=== PATIENT | female | born 1965 | race Caucasian/White ===

== ENCOUNTER 2018-02-07 19:57 | Emergency (ER) | payer OTHER ==
[2018-02-07] MEDS ORDERED: BABY ASPIRIN 81 MG CHEW PO ONE (20:21)
--- NOTE | 2018-02-07 20:27 | ERPHSYRPT ---
- History of Present Illness Time Seen by Provider: 02/07/18 20:21 Historian: patient Exam Limitations: no limitations Physician History: This is a 52-year-old white female with history of diabetes asthma bronchitis GERD hyperlipidemia Patient arrives with complaint of pain like someone is sitting on her chest substernal area radiating to her back associated with shortness of breath symptoms for one hour. Patient has no nausea she is not vomiting, patient was admitted to [facility] the weekend before last secondary to chest pain and ruled out. Patient saw her family doctor today. Past medical history includes diabetes, asthma, bronchitis, GERD, cataracts, hyperlipidemia, arthritis, anxiety, depression, leaky heart valve Past surgical history includes cholecystectomy, tubal ligation, cardiac catheter several years ago go which was normal, rotator cuff surgery ppatient took one baby aspirin this morning Timing/Duration: today (one hour ago) Activities at Onset: none Quality: pressure Chest Pain Radiation: back Severity of Pain-Max: moderate Severity of Pain-Current: mild Modifying Factors: Improves With: nothing Associated Symptoms: shortness of breath, hurts to breathe, No nausea, No vomiting, No palpitations, No heartburn, No abdominal pain, No cough, No diaphoresis, No chills, No fever, No fatigue, No weakness, No swelling/lump in chest, No syncope, No rash, No headache, No dizziness, No edema, No back pain Prior Chest Pain/Cardiac Workup: cardiac cath (cardiac catheter several years ago), recently seen/treated (in [facility] 2 weeks ago for same) Nitro Today/Relief: no nitro taken today Aspirin Treatment Today: 81 mg x 1 (81 mg at home this morning), 81 mg x 3 (243 mg in the emergency room now) Allergies/Adverse Reactions: morphine Allergy (Verified 02/07/18 22:55) levofloxacin [From Levaquin] Adverse Reaction (Intermediate, Verified 02/07/18 22:55) PT STATES ONE TIME SHE HAD THIS MEDICINE AND HER VEINS ALL TURNED BRIGHT RED Hx Tetanus, Diphtheria Vaccination/Date Given: Yes Hx Influenza Vaccination/Date Given: Yes Hx Pneumococcal Vaccination/Date Given: No - Review of Systems Constitutional: No Fever, No Chills Eyes: No Symptoms Ears, Nose, & Throat: No Symptoms Respiratory: Dyspnea, No Cough Cardiac: Chest Pain, No Edema, No Palpitations, No Syncope, No Orthopnea, No PND Abdominal/Gastrointestinal: No Abdominal Pain, No Nausea, No Vomiting, No Diarrhea Genitourinary Symptoms: No Dysuria Musculoskeletal: No Back Pain, No Neck Pain Skin: No Rash Neurological: No Dizziness, No Focal Weakness, No Sensory Changes Psychological: No Symptoms Endocrine: No Symptoms All Other Systems: Reviewed and Negative - Past Medical History Pertinent Past Medical History: Yes Neurological History: Seizures ENT History: Cataracts Cardiac History: High Cholesterol, Other Respiratory History: Asthma, Bronchitis Endocrine Medical History: Other Musculoskeletal History: Arthritis, Osteoarthritis GI Medical History: GERD History: No Pertinent History Psycho-Social History: Anxiety, Depression Female Reproductive Disorders: No Pertinent History Other Medical History: OA IN LEFT FOOT, RIGHT HAND, NECK;. LEAKING HEART VALVE - Past Surgical History Past Surgical History: Yes Neuro Surgical History: No Pertinent History Cardiac: No Pertinent History Respiratory: No Pertinent History Gastrointestinal: Cholecystectomy Genitourinary: No Pertinent History Musculoskeletal: No Pertinent History, Orthopedic Surgery Female Surgical History: Tubal Ligation Other Surgical History: HEART CATH, rotator cuff in oct 2015 - Social History Smoking Status: Former smoker How long have you smoked: 6 YEARS Exposure to second hand smoke: Yes Alcohol Use: None Drug Use: none Patient Lives Alone: No Significant Family History: no pertinent family hx - Nursing Vital Signs Nursing Vital Signs: Initial Vital Signs Temperature 98.2 F 02/07/18 20:14 Pulse Rate 87 02/07/18 20:14 Respiratory Rate 18 02/07/18 20:14 Blood Pressure 169/105 02/07/18 20:14 O2 Sat by Pulse Oximetry 99 02/07/18 20:14 Pain Scale Pain Intensity 5 - Physical Exam General Appearance: no apparent distress, alert Eye Exam: PERRL/EOMI, eyes nml inspection Ears, Nose, Throat Exam: normal ENT inspection, moist mucous membranes Neck Exam: normal inspection, non-tender, supple, full range of motion Respiratory Exam: normal breath sounds, lungs clear, No respiratory distress Cardiovascular Exam: regular rate/rhythm, normal heart sounds Gastrointestinal/Abdomen Exam: soft, No tenderness, No mass Back Exam: normal inspection, No CVA tenderness, No vertebral tenderness Extremity Exam: normal inspection, normal range of motion Neurologic Exam: alert, oriented x 3, cooperative, maintenance foreman II-XII nml as tested, normal mood/affect, sensation nml, No motor deficits Skin Exam: normal color, warm, dry SpO2 Interpretation: normal (98%) - Course Nursing assessment & vital signs reviewed: Yes EKG Interpreted by Me: RATE (83 bpm), Sinus Rhythm, NORMAL AXIS (EKG: Normal sinus rhythm, 83 beats for minute, normal axis, no acute ST or T wave changes, normal EKG.) - Radiology Exams Chest X-ray Interpretation: Interpreted by me, Other (no acute disease process noted) Ordered Tests: Active Orders 24 hr Category Date Time Status Mannequin Molder STAT Care 02/07/18 20:21 Active EKG-ER Only STAT Care 02/07/18 20:21 Active IV Insertion STAT Care 02/07/18 20:21 Active CHEST 1 VIEW (PORTABLE) Stat Exams 02/07/18 20:21 Taken AMYLASE Stat Lab 02/07/18 20:30 Completed CBC W DIFF Stat Lab 02/07/18 20:30 Completed CMP Stat Lab 02/07/18 20:30 Completed D-DIMER QUANTITATION Stat Lab 02/07/18 20:30 Completed LIPASE Stat Lab 02/07/18 20:30 Completed Manual Differential NC Stat Lab 02/07/18 20:30 Completed TROPONIN Q3H Lab 02/07/18 20:30 Completed TROPONIN Q3H Lab 02/07/18 23:30 Completed TROPONIN Q3H Lab 02/08/18 02:30 Ordered TROPONIN Q3H Lab 02/08/18 05:30 Ordered TROPONIN Q3H Lab 02/08/18 08:30 Ordered Medication Summary Generic Name Dose Route Start Last Admin Trade Name Freq PRN Reason Stop Dose Admin Sodium Chloride 1,000 mls @ 100 mls/hr 02/07/18 20:30 02/07/18 21:06 Sodium Chloride 0.9% 1000 Ml IV 03/09/18 20:29 100 mls/hr .Q10H ARSH Administration Discontinued Medications Generic Name Dose Route Start Last Admin Trade Name Freq PRN Reason Stop Dose Admin Hydrocodone Bitart/Acetaminophen 1 tab 02/07/18 21:26 02/07/18 21:33 Lachine 5/325 Mg PO 02/07/18 21:27 1 tab STAT ONE Administration Hydrocodone Bitart/Acetaminophen Confirm 02/07/18 21:29 Lachine 5/325 Mg Administered 02/07/18 21:30 Dose 1 tab .ROUTE .STK-MED ONE Aspirin 243 mg 02/07/18 20:21 02/07/18 21:03 Baby Aspirin 81 Mg Chew PO 02/07/18 20:22 243 mg STAT ONE Administration Lab/Rad Data: Laboratory Result Diagrams 02/07/18 20:30 02/07/18 20:30 Laboratory Results 02/07/18 02/07/18 02/07/18 Range/Units 23:30 20:30 20:30 WBC (4.0-10.5) K/mm3 RBC (4.1-5.4) M/mm3 Hgb (12.0-16.0) gm/dl Hct (35-47) % MCV (78-100) fl MCH (26-32) pg MCHC (32-36) g/dl RDW (11.5-14.0) % Plt Count (150-450) K/mm3 MPV (6-9.5) fl Segmented Neutrophils (36.0-66.0) % Lymphocytes (Manual) (24-44) % Monocytes (Manual) (0.0-12.0) % Eosinophils (Manual) (0.00-3.0) % Basophils (Manual) (0.0-1.0) % Differential Comment Atypical Lymphocytes % Platelet Estimate (NORMAL) Anisocytosis D-Dimer (215-500) ng/mL Sodium (137-145) mmol/L Potassium (3.5-5.1) mmol/L Chloride (98-107) mmol/L Carbon Dioxide (22-30) mmol/L Anion Gap (5-15) MEQ/L BUN (7-17) mg/dL Creatinine (0.52-1.04) mg/dL Estimated GFR ML/MIN Glucose (74-106) mg/dL Calcium (8.4-10.2) mg/dL Total Bilirubin (0.2-1.3) mg/dL AST (14-36) U/L ALT (0-35) U/L Alkaline Phosphatase (38-126) U/L Troponin I < 0.012 < 0.012 (0.000-0.034) ng/mL Serum Total Protein (6.3-8.2) g/dL Albumin (3.5-5.0) g/dL Amylase 57 (30-110) U/L Lipase 79 (23-300) U/L 02/07/18 02/07/18 02/07/18 Range/Units 20:30 20:30 20:30 WBC 8.3 (4.0-10.5) K/mm3 RBC 4.03 L (4.1-5.4) M/mm3 Hgb 12.4 (12.0-16.0) gm/dl Hct 37.1 (35-47) % MCV 92.1 (78-100) fl MCH 30.7 (26-32) pg MCHC 33.4 (32-36) g/dl RDW 12.4 (11.5-14.0) % Plt Count 245 (150-450) K/mm3 MPV 11.8 H (6-9.5) fl Segmented Neutrophils 57 (36.0-66.0) % Lymphocytes (Manual) 28 (24-44) % Monocytes (Manual) 5 (0.0-12.0) % Eosinophils (Manual) 4 H (0.00-3.0) % Basophils (Manual) 2 H (0.0-1.0) % Differential Comment ABNORMAL Atypical Lymphocytes 4 % Platelet Estimate NORMAL (NORMAL) Anisocytosis 1+ D-Dimer 494.54 (215-500) ng/mL Sodium 141 (137-145) mmol/L Potassium 4.1 (3.5-5.1) mmol/L Chloride 104 (98-107) mmol/L Carbon Dioxide 27 (22-30) mmol/L Anion Gap 14.4 (5-15) MEQ/L BUN 8 (7-17) mg/dL Creatinine 0.78 (0.52-1.04) mg/dL Estimated GFR > 60 ML/MIN Glucose 116 H (74-106) mg/dL Calcium 9.4 (8.4-10.2) mg/dL Total Bilirubin 0.30 (0.2-1.3) mg/dL AST 21 (14-36) U/L ALT 16 (0-35) U/L Alkaline Phosphatase 84 (38-126) U/L Troponin I (0.000-0.034) ng/mL Serum Total Protein 7.3 (6.3-8.2) g/dL Albumin 4.1 (3.5-5.0) g/dL Amylase (30-110) U/L Lipase (23-300) U/L - Progress Progress: improved Air Movement: fair Progress Note: 02/07/18 21:27 Patient's EKG chest x-ray labs including troponin and d-dimer are all normal patient states she still has some chest pain will give her Lachine 5/325. Patient had recently been ruled out at [facility]. Will get a second troponin 3 hours after last draw. 02/08/18 00:27 Patient pain-free feeling better troponin within normal limits second time. Will discharge - Departure Time of Disposition: 00:29 Departure Disposition: Home Clinical Impression: Non-cardiac chest pain Condition: Fair Critical Care Time: No Referrals: LORIN WAN [Primary Care Provider] - Additional Instructions: Return home, rest. Follow-up with your family doctor or your broom maker. Return for acute distress or for severe symptoms. take the Lachine given to you raynedm to go home 1 every 4-6 hours as needed for pain.
[2018-02-07] MEDS ORDERED: Sodium Chloride 0.9% 1000 ML 1,000 ML IV SCH (20:30)
[2018-02-07 20:36] LABS: Granulocyte Absolute (ANC) 4.66 (1.4-6.9); Hematocrit 37.1 % (35-47); Hemoglobin 12.4 gm/dl (12.0-16.0); Mean Cell Volume 92.1 fl (78-100); Mean Corpuscular Hgb Concent. 33.4 g/dl (32-36); Mean Platelet Volume 11.8 fl (6-9.5); Platelet Count 245 K/mm3 (150-450); Red Blood Count 4.03 M/mm3 (4.1-5.4); Red Cell Distribution Width 12.4 % (11.5-14.0); White Blood Count 8.3 K/mm3 (4.0-10.5)
[2018-02-07 21:01] LABS: Mean Corpuscular Hemoglobin 30.7 pg (26-32)
[2018-02-07] MEDS ORDERED: Sodium Chloride 0.9% 1000 ML 1,000 ML ONE (21:04)
[2018-02-07 21:07] LABS: ALBUMIN 4.1 g/dL (3.5-5.0); ALKALINE PHOSPHATASE 84 U/L (38-126); AMYLASE 57 U/L (30-110); ANION GAP 14.4 MEQ/L (5-15); BLOOD UREA NITROGEN 8 mg/dL (7-17); CHLORIDE 104 mmol/L (98-107); Calcium 9.4 mg/dL (8.4-10.2); Carbon Dioxide 27 mmol/L (22-30); Creatinine 1 0.78 mg/dL (0.52-1.04); Glucose 116 mg/dL (74-106); LIPASE 79 U/L (23-300); Potassium 4.1 mmol/L (3.5-5.1); SGOT/AST 21 U/L (14-36); SGPT/ALT 16 U/L (0-35); SODIUM 141 mmol/L (137-145); Total Protein 7.3 g/dL (6.3-8.2)
[2018-02-07] MEDS ORDERED: NORCO 5/325 MG PO ONE (21:26)
[2018-02-07] MEDS ORDERED: NORCO 5/325 MG ONE (21:29)
[2018-02-07 22:08] LABS: Total Cells Counted 100
[2018-02-07 22:09] LABS: ANISOCYTOSIS 1+; ATYPICAL LYMPHS 4 %; Basophil 2 % (0.0-1.0); Eosinophil 4 % (0.00-3.0); Lymphocytes 28 % (24-44); Monocyte 5 % (0.0-12.0); Neutrophils 57 % (36.0-66.0); Platelet Estimate NORMAL (NORMAL)
[2018-02-08 00:19] VITALS: BP 137/72; PULSE 84; O2SAT 98
[2018-02-08] MEDS ORDERED: NORCO 5/325 MG PO ONE (00:29)
[2018-02-08] MEDS ORDERED: NORCO 5/325 MG ONE (00:32)
[2018-02-08] MEDS ORDERED: BABY ASPIRIN 81 MG CHEW ONE (02:03)
--- NOTE | 2018-02-08 09:05 | XRAY ---
Indication: Chest pain. Comparison: November 02, 2017. Portable chest again demonstrates normal heart and lungs with mild multilevel spinal degenerative changes. No new/acute findings.
== END 2018-02-08 00:46 | disposition home or self-care (01) ==
LOC: ED 19:57
DX: R07.89 Other chest pain (principal)
CPT/HCPCS: 36000; 36415; 71045; 80053; 82150; 83690; 84443; 84484; 85025; 85379; 93005; 93041; 96360; 99284; 99285; A9270-GY

== ENCOUNTER 2018-02-13 07:09 | Emergency (ER) | payer OTHER ==
[2018-02-13] MEDS ORDERED: Zofran 4 MG/2 ML VIAL IV ONE (07:33)
[2018-02-13] MEDS ORDERED: TORAdol 30 mg Injection IV ONE (07:34)
[2018-02-13] MEDS ORDERED: TORAdol 30 mg Injection ONE (07:39)
[2018-02-13] MEDS ORDERED: Zofran 4 MG/2 ML VIAL ONE (07:39)
--- NOTE | 2018-02-13 07:47 | ERPHSYRPT ---
- History of Present Illness Time Seen by Provider: 02/13/18 07:28 Historian: patient Exam Limitations: no limitations Physician History: 52 y/o female returns to the ER with complaints of intermittent chest pain, shortness of breath and dizziness since early January after returning from a trip from [place]. Pt describes the pain as someone sitting on her chest, intermittent, 8/10 and not relieved by norco. Pt also admits to leg swelling. Pt was seen in the ER twice over the last couple of weeks, once at [facility] and the other time 5 days ago at [place]. Pt had multiple EKGs and troponins that were negative. Pt states that she had a similar episode of chest pain and shortness of breath 4 years ago and was told she had a leaky valve. Timing/Duration: week(s) Activities at Onset: activity Quality: pressure Location: substernal Chest Pain Radiation: no radiation Severity of Pain-Max: severe Severity of Pain-Current: severe Modifying Factors: Improves With: nothing Associated Symptoms: nausea, vomiting, shortness of breath Prior Chest Pain/Cardiac Workup: cardiac cath, echocardiography Nitro Today/Relief: no nitro taken today Aspirin Treatment Today: unknown Allergies/Adverse Reactions: morphine Allergy (Verified 02/13/18 07:47) levofloxacin [From Levaquin] Adverse Reaction (Intermediate, Verified 02/13/18 07:47) PT STATES ONE TIME SHE HAD THIS MEDICINE AND HER VEINS ALL TURNED BRIGHT RED Hx Tetanus, Diphtheria Vaccination/Date Given: Yes Hx Influenza Vaccination/Date Given: Yes Hx Pneumococcal Vaccination/Date Given: No - Review of Systems Constitutional: No Fever, No Chills Eyes: No Symptoms Ears, Nose, & Throat: No Symptoms Respiratory: Dyspnea, Dyspnea on Exertion (JULIEN), No Cough Cardiac: Chest Pain, Edema, No Syncope Abdominal/Gastrointestinal: Nausea, Vomiting, No Abdominal Pain, No Diarrhea Genitourinary Symptoms: No Dysuria Musculoskeletal: No Back Pain, No Neck Pain Skin: No Rash Neurological: No Dizziness, No Focal Weakness, No Sensory Changes Psychological: No Symptoms Endocrine: No Symptoms All Other Systems: Reviewed and Negative - Past Medical History Pertinent Past Medical History: Yes Neurological History: Seizures ENT History: Cataracts Cardiac History: High Cholesterol, Other Respiratory History: Asthma, Bronchitis Endocrine Medical History: Other Musculoskeletal History: Arthritis, Osteoarthritis GI Medical History: GERD History: No Pertinent History Psycho-Social History: Anxiety, Depression Female Reproductive Disorders: No Pertinent History Other Medical History: OA IN LEFT FOOT, RIGHT HAND, NECK;. LEAKING HEART VALVE - Past Surgical History Past Surgical History: Yes Neuro Surgical History: No Pertinent History Cardiac: No Pertinent History Respiratory: No Pertinent History Gastrointestinal: Cholecystectomy Genitourinary: No Pertinent History Musculoskeletal: No Pertinent History, Orthopedic Surgery Female Surgical History: Tubal Ligation Other Surgical History: HEART CATH, rotator cuff in oct 2015 - Social History Smoking Status: Former smoker How long have you smoked: 6 YEARS Exposure to second hand smoke: Yes Alcohol Use: None Drug Use: none Patient Lives Alone: No Significant Family History: no pertinent family hx - Nursing Vital Signs Nursing Vital Signs: Initial Vital Signs Temperature 97.7 F 02/13/18 07:12 Pulse Rate 82 02/13/18 07:12 Respiratory Rate 20 02/13/18 07:12 Blood Pressure 119/93 02/13/18 07:12 O2 Sat by Pulse Oximetry 99 02/13/18 07:12 Pain Scale Pain Intensity 5 - Physical Exam General Appearance: no apparent distress, alert Eye Exam: PERRL/EOMI, eyes nml inspection Ears, Nose, Throat Exam: normal ENT inspection, moist mucous membranes Neck Exam: normal inspection, non-tender, supple, full range of motion Respiratory Exam: normal breath sounds, chest tenderness, lungs clear, No respiratory distress Cardiovascular Exam: regular rate/rhythm, normal heart sounds, normal peripheral pulses Gastrointestinal/Abdomen Exam: soft, normal bowel sounds, No tenderness, No mass Back Exam: normal inspection, No CVA tenderness, No vertebral tenderness Extremity Exam: normal inspection, normal range of motion Neurologic Exam: alert, oriented x 3, cooperative, normal mood/affect, sensation nml, No motor deficits Skin Exam: normal color, warm, dry - Course Nursing assessment & vital signs reviewed: Yes EKG Interpreted by Me: RATE, NORMAL AXIS, NORMAL INTERVALS, NORMAL QRS, NORMAL ST-T Ordered Tests: Active Orders 24 hr Category Date Time Status IV Insertion STAT Care 02/13/18 07:32 Active CHEST WITH CONTRAST [CT] Stat Exams 02/13/18 07:32 Completed CBC W DIFF Stat Lab 02/13/18 07:35 Completed CK-Creatinine Phosphokinase Stat Lab 02/13/18 07:35 Completed CMP Stat Lab 02/13/18 07:35 Completed NT PRO BNP Stat Lab 02/13/18 07:35 Completed PROTIME WITH INR Stat Lab 02/13/18 07:35 Completed PTT Stat Lab 02/13/18 07:35 Completed TROPONIN Q3H Lab 02/13/18 07:35 Completed TROPONIN Q3H Lab 02/13/18 10:45 Ordered TROPONIN Q3H Lab 02/13/18 13:45 Ordered TROPONIN Q3H Lab 02/13/18 16:45 Ordered TROPONIN Q3H Lab 02/13/18 19:45 Ordered Medication Summary Discontinued Medications Generic Name Dose Route Start Last Admin Trade Name Curry PRN Reason Stop Dose Admin Ketorolac Tromethamine 30 mg 02/13/18 07:34 02/13/18 07:43 Toradol 30 Mg Injection IV 02/13/18 07:35 30 mg STAT ONE Administration Ketorolac Tromethamine Confirm 02/13/18 07:39 Toradol 30 Mg Injection Administered 02/13/18 07:40 Dose 30 mg .ROUTE .STK-MED ONE Ondansetron HCl 4 mg 02/13/18 07:33 02/13/18 07:43 Zofran 4 Mg/2 Ml Vial IV 02/13/18 07:34 4 mg STAT ONE Administration Ondansetron HCl Confirm 02/13/18 07:39 Zofran 4 Mg/2 Ml Vial Administered 02/13/18 07:40 Dose 4 mg .ROUTE .STK-MED ONE Lab/Rad Data: Laboratory Result Diagrams 02/13/18 07:35 02/13/18 07:35 Laboratory Results 02/13/18 02/13/18 02/13/18 Range/Units 07:35 07:35 07:35 WBC (4.0-10.5) K/mm3 RBC (4.1-5.4) M/mm3 Hgb (12.0-16.0) gm/dl Hct (35-47) % MCV (78-100) fl MCH (26-32) pg MCHC (32-36) g/dl RDW (11.5-14.0) % Plt Count (150-450) K/mm3 MPV (6-9.5) fl Gran % (36.0-66.0) % Eos # (Auto) (0-0.5) Absolute Lymphs (auto) (1.0-4.6) Absolute Monos (auto) (0.0-1.3) Lymphocytes % (24.0-44.0) % Monocytes % (0.0-12.0) % Eosinophils % (0.00-5.0) % Basophils % (0.0-0.4) % Absolute Granulocytes (1.4-6.9) Basophils # (0-0.4) PT 10.6 (9.95-12.35) SECONDS INR 0.95 (0.8-3.0) APTT 27.7 (25.3-37.0) SECONDS Sodium 139 (137-145) mmol/L Potassium 4.2 (3.5-5.1) mmol/L Chloride 104 (98-107) mmol/L Carbon Dioxide 25 (22-30) mmol/L Anion Gap 14.9 (5-15) MEQ/L BUN 10 (7-17) mg/dL Creatinine 0.75 (0.52-1.04) mg/dL Estimated GFR > 60 ML/MIN Glucose 109 H (74-106) mg/dL Calcium 9.5 (8.4-10.2) mg/dL Total Bilirubin 0.50 (0.2-1.3) mg/dL AST 17 (14-36) U/L ALT 13 (0-35) U/L Alkaline Phosphatase 91 (38-126) U/L Creatine Kinase 52 (30-135) U/L Troponin I < 0.012 (0.000-0.034) ng/mL NT-Pro-B Natriuret Pep 54.6 (0-900) pg/mL Serum Total Protein 7.7 (6.3-8.2) g/dL Albumin 4.4 (3.5-5.0) g/dL 02/13/18 Range/Units 07:35 WBC 6.9 (4.0-10.5) K/mm3 RBC 4.16 (4.1-5.4) M/mm3 Hgb 12.5 (12.0-16.0) gm/dl Hct 38.4 (35-47) % MCV 92.3 (78-100) fl MCH 30.0 (26-32) pg MCHC 32.6 (32-36) g/dl RDW 12.5 (11.5-14.0) % Plt Count 232 (150-450) K/mm3 MPV 11.2 H (6-9.5) fl Gran % 54.2 (36.0-66.0) % Eos # (Auto) 0.43 (0-0.5) Absolute Lymphs (auto) 2.11 (1.0-4.6) Absolute Monos (auto) 0.58 (0.0-1.3) Lymphocytes % 30.6 (24.0-44.0) % Monocytes % 8.4 (0.0-12.0) % Eosinophils % 6.2 H (0.00-5.0) % Basophils % 0.6 (0.0-0.4) % Absolute Granulocytes 3.73 (1.4-6.9) Basophils # 0.04 (0-0.4) PT (9.95-12.35) SECONDS INR (0.8-3.0) APTT (25.3-37.0) SECONDS Sodium (137-145) mmol/L Potassium (3.5-5.1) mmol/L Chloride (98-107) mmol/L Carbon Dioxide (22-30) mmol/L Anion Gap (5-15) MEQ/L BUN (7-17) mg/dL Creatinine (0.52-1.04) mg/dL Estimated GFR ML/MIN Glucose (74-106) mg/dL Calcium (8.4-10.2) mg/dL Total Bilirubin (0.2-1.3) mg/dL AST (14-36) U/L ALT (0-35) U/L Alkaline Phosphatase (38-126) U/L Creatine Kinase (30-135) U/L Troponin I (0.000-0.034) ng/mL NT-Pro-B Natriuret Pep (0-900) pg/mL Serum Total Protein (6.3-8.2) g/dL Albumin (3.5-5.0) g/dL - Progress Progress: improved Progress Note: 02/13/18 09:28 Pt feels better after receiving toradol 30mg IV X 1 dose. The CTA chest is within normal limits. The rest of the cardiac workup is within normal limits. The patient has an appointment with Dr Ramsey this week for evaluation of her leaky valve. - Departure Time of Disposition: 09:29 Departure Disposition: Home Clinical Impression: Costochondritis Condition: Stable Critical Care Time: No Referrals: LORIN WAN [Primary Care Provider] - LIZ RAMSEY [ACTIVE STAFF] - Instructions: Chest Pain (DC), Costochondritis (DC) Additional Instructions: Follow up with Dr Ramsey this week. Return to the ER if you should have severe chest pain, shortness of breath, dizziness or palpitations. Prescriptions: Ketorolac Tromethamine [Toradol] 10 mg PO QID PRN #20 tablet PRN Reason: Pain
[2018-02-13 07:50] LABS: BASOPHIL % 0.6 % (0.0-0.4); Basophil (Absolute #) 0.04 (0-0.4); Eosinophil % 6.2 % (0.00-5.0); Eosinophil (Absolute #) 0.43 (0-0.5); Granulocyte Absolute (ANC) 3.73 (1.4-6.9); Granulocytes % 54.2 % (36.0-66.0); Hematocrit 38.4 % (35-47); Hemoglobin 12.5 gm/dl (12.0-16.0); Lymphocyte (Absolute #) 2.11 (1.0-4.6); Lymphocytes % 30.6 % (24.0-44.0); Mean Cell Volume 92.3 fl (78-100); Mean Corpuscular Hgb Concent. 32.6 g/dl (32-36); Mean Platelet Volume 11.2 fl (6-9.5); Monocyte (Absolute #) 0.58 (0.0-1.3); Monocytes % 8.4 % (0.0-12.0); Platelet Count 232 K/mm3 (150-450); Red Blood Count 4.16 M/mm3 (4.1-5.4); Red Cell Distribution Width 12.5 % (11.5-14.0); White Blood Count 6.9 K/mm3 (4.0-10.5)
[2018-02-13 08:02] LABS: INR 0.95 (0.8-3.0)
[2018-02-13 08:04] LABS: PTT 27.7 SECONDS (25.3-37.0)
[2018-02-13 08:07] LABS: ALBUMIN 4.4 g/dL (3.5-5.0); ALKALINE PHOSPHATASE 91 U/L (38-126); ANION GAP 14.9 MEQ/L (5-15); BLOOD UREA NITROGEN 10 mg/dL (7-17); CHLORIDE 104 mmol/L (98-107); CK-Creatinine Phosphokinase 52 U/L (30-135); Calcium 9.5 mg/dL (8.4-10.2); Carbon Dioxide 25 mmol/L (22-30); Creatinine 1 0.75 mg/dL (0.52-1.04); Glucose 109 mg/dL (74-106); Potassium 4.2 mmol/L (3.5-5.1); SGOT/AST 17 U/L (14-36); SGPT/ALT 13 U/L (0-35); SODIUM 139 mmol/L (137-145); Total Protein 7.7 g/dL (6.3-8.2)
[2018-02-13 08:16] LABS: NT PRO BNP 54.6 pg/mL (0-900)
--- NOTE | 2018-02-13 08:44 | XRAY ---
Indication: Chest pain and short of breath for a few weeks. Multiple contiguous axial images obtained through the chest using 80 cc Isovue 370 contrast and PE protocol. Comparison: None There is good opacification of the pulmonary arteries to include the lobar and segmental branches. No filling defect or pulmonary embolus. Heart is not enlarged. Aorta is normal in course and caliber. No pathologic mediastinal/hilar lymphadenopathy. Small hiatal hernia. Lungs are inflated with minimal bilateral dependent atelectasis. No suspicious pulmonary mass, infiltrate, or effusion. Bony thorax intact with mild degenerative changes throughout the spine. Limited upper abdomen demonstrates fatty liver, cholecystectomy clips, and scattered colonic fecal debris. Impression: 1. Negative pulmonary embolus. No acute cardiopulmonary abnormalities. 2. Incidental fatty liver. CT DI 23.59
[2018-02-13 10:35] VITALS: BP 118/79; PULSE 81; O2SAT 98
== END 2018-02-13 10:25 | disposition home or self-care (01) ==
LOC: ED 07:09
DX: M94.0 Chondrocostal junction syndrome [Tietze] (principal); R07.9 Chest pain, unspecified; R06.02 Shortness of breath; R42 Dizziness and giddiness; R11.2 Nausea with vomiting, unspecified
CPT/HCPCS: 36000; 36415; 71260; 80053; 82550; 83880; 84484; 85025; 85610; 85730; 96374; 96375; 99284; J1885; J2405

== ENCOUNTER 2018-02-21 23:10 | Inpatient (IN) | payer OTHER ==
[2018-02-21] MEDS ORDERED: Nitrostat 0.4 MG (ED) SL ONE ×2 (23:31→23:42)
[2018-02-21] MEDS ORDERED: BABY ASPIRIN 81 MG CHEW PO ONE (23:31)
[2018-02-21] MEDS ORDERED: BABY ASPIRIN 81 MG CHEW ONE (23:42)
[2018-02-21 23:44] LABS: BASOPHIL % 0.5 % (0.0-0.4); Basophil (Absolute #) 0.04 (0-0.4); Eosinophil % 8.4 % (0.00-5.0); Eosinophil (Absolute #) 0.67 (0-0.5); Granulocyte Absolute (ANC) 3.29 (1.4-6.9); Granulocytes % 41.3 % (36.0-66.0); Hematocrit 35.5 % (35-47); Hemoglobin 11.6 gm/dl (12.0-16.0); Lymphocyte (Absolute #) 3.14 (1.0-4.6); Lymphocytes % 39.4 % (24.0-44.0); Mean Cell Volume 92.4 fl (78-100); Mean Corpuscular Hemoglobin 30.2 pg (26-32); Mean Corpuscular Hgb Concent. 32.7 g/dl (32-36); Mean Platelet Volume 11.4 fl (6-9.5); Monocyte (Absolute #) 0.83 (0.0-1.3); Monocytes % 10.4 % (0.0-12.0); Platelet Count 280 K/mm3 (150-450); Red Blood Count 3.84 M/mm3 (4.1-5.4); Red Cell Distribution Width 12.2 % (11.5-14.0)
[2018-02-21] MEDS ORDERED: Sodium Chloride 0.9% 1000 ML 1,000 ML IV SCH (23:45)
--- NOTE | 2018-02-21 23:50 | ERPHSYRPT ---
- History of Present Illness Time Seen by Provider: 02/21/18 23:39 Historian: patient Exam Limitations: clinical condition Patient Subjective Stated Complaint: cp/sob since 1900 today/ vomited prior to arrival. increased pain with deep breathing into back. Triage Nursing Assessment: alert and oriented.. c/o CP going into back with deep breathing, has productive cough which is not unusual due to COPD. 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 lungs clear. noted leg swelling/ Physician History: PATIENT WITH A HISTORY OF COPD, HYPERTENSION COMPLAINS OF SUBSTERNAL CHEST PRESSURE INTERMITTENT X 3 WEEKS, EVALUATED AT [facility] 3 WEEKS AGO, [facility] 02/13/2018, COMPLAINS OF SUBSTERNAL CHEST PRESSURE SINCE 7PM TONIGHT PAIN SCALE 8/10, PAIN RADIATES TO BACK ASSOCIATED WITH DYSPNEA. DENIES COUGH, DIAPHORESIS OR PALPITATIONS Timing/Duration: today Activities at Onset: none Location: substernal Chest Pain Radiation: back Severity of Pain-Max: severe Severity of Pain-Current: severe Modifying Factors: Improves With: breathing Associated Symptoms: hurts to breathe Prior Chest Pain/Cardiac Workup: stress test Nitro Today/Relief: no nitro taken today Aspirin Treatment Today: 81 mg x 1 Allergies/Adverse Reactions: morphine Allergy (Verified 02/13/18 07:47) levofloxacin [From Levaquin] Adverse Reaction (Intermediate, Verified 02/13/18 07:47) PT STATES ONE TIME SHE HAD THIS MEDICINE AND HER VEINS ALL TURNED BRIGHT RED Home Medications: Albuterol Sulfate [Ventolin Hfa] 8 gm IH Q6-8HPRN PRN 02/21/18 [History] Aripiprazole [Abilify] 5 mg PO DAILY 02/21/18 [History] Fluticasone/Salmeterol [Advair 100-50 Diskus] 1 each IH DAILY 02/21/18 [History] Meclizine HCl 25 mg [Antivert 25 mg] 25 mg PO DAILY 02/21/18 [History] Prazosin HCl [Minipress] 1 mg PO DAILY 02/21/18 [History] Ranitidine HCl [Zantac] 150 mg PO DAILY 02/21/18 [History] Ropinirole HCl [Requip] 1 mg PO DAILY 02/21/18 [History] Simvastatin [Zocor] 5 mg PO DAILY 02/21/18 [History] Hx Tetanus, Diphtheria Vaccination/Date Given: Yes Hx Influenza Vaccination/Date Given: Yes Hx Pneumococcal Vaccination/Date Given: No - Review of Systems Constitutional: No Symptoms, No Fever, No Chills Eyes: No Symptoms Ears, Nose, & Throat: No Symptoms Respiratory: Dyspnea, No Cough Cardiac: Chest Pain, No Edema, No Syncope Abdominal/Gastrointestinal: No Symptoms, No Abdominal Pain, No Nausea, No Vomiting, No Diarrhea Genitourinary Symptoms: No Symptoms, No Dysuria Musculoskeletal: No Symptoms, No Back Pain, No Neck Pain Skin: No Rash Neurological: No Dizziness, No Focal Weakness, No Sensory Changes Psychological: No Symptoms Endocrine: No Symptoms All Other Systems: Reviewed and Negative - Past Medical History Pertinent Past Medical History: Yes Neurological History: Seizures ENT History: Cataracts Cardiac History: High Cholesterol, Other Respiratory History: Asthma, Bronchitis Endocrine Medical History: Other Musculoskeletal History: Arthritis, Osteoarthritis GI Medical History: GERD History: No Pertinent History Psycho-Social History: Anxiety, Depression Female Reproductive Disorders: No Pertinent History Other Medical History: OA IN LEFT FOOT, RIGHT HAND, NECK;. LEAKING HEART VALVE - Past Surgical History Past Surgical History: Yes Neuro Surgical History: No Pertinent History Cardiac: No Pertinent History Respiratory: No Pertinent History Gastrointestinal: Cholecystectomy Genitourinary: No Pertinent History Musculoskeletal: No Pertinent History, Orthopedic Surgery Female Surgical History: Tubal Ligation Other Surgical History: HEART CATH, rotator cuff in oct 2015 - Social History Smoking Status: Former smoker How long have you smoked: 6 YEARS Exposure to second hand smoke: No Alcohol Use: None Drug Use: none Patient Lives Alone: No Significant Family History: no pertinent family hx - Female History Hx Now: No - Nursing Vital Signs Nursing Vital Signs: Initial Vital Signs Temperature 97.8 F 02/21/18 23:32 Pulse Rate 77 02/21/18 23:32 Respiratory Rate 18 02/21/18 23:32 Blood Pressure 174/111 02/21/18 23:32 O2 Sat by Pulse Oximetry 99 02/21/18 23:32 Pain Scale Pain Intensity 2 - Physical Exam General Appearance: no apparent distress, alert Eye Exam: PERRL/EOMI, eyes nml inspection Ears, Nose, Throat Exam: normal ENT inspection, moist mucous membranes Neck Exam: normal inspection, non-tender, supple, full range of motion Respiratory Exam: normal breath sounds, lungs clear, No respiratory distress Cardiovascular Exam: regular rate/rhythm, normal heart sounds Gastrointestinal/Abdomen Exam: soft, normal bowel sounds, No tenderness, No mass Back Exam: normal inspection, No CVA tenderness, No vertebral tenderness Extremity Exam: normal range of motion, pedal edema (1+ PITTING EDEMA) Neurologic Exam: alert, oriented x 3, cooperative, normal mood/affect, sensation nml, No motor deficits Skin Exam: normal color, warm, dry SpO2: 99 Oxygen Delivery: Room Air - Course EKG Interpreted by Me: RATE, Sinus Rhythm, NORMAL AXIS - Radiology Exams Chest X-ray Interpretation: Interpreted by me, No Infiltrates (ELEVATION RIGHT HEMIDIAPHRAM) Ordered Tests: Active Orders 24 hr Category Date Time Status Bedrest with BRP/BSC ROUTINE Activity 02/22/18 00:56 Ordered Call Admit Doctor for Orders ROUTINE Care 02/22/18 00:56 Ordered Broiler Supervisor STAT Care 02/21/18 23:31 Active Code Status Order ROUTINE Care 02/22/18 00:56 Ordered EKG-ER Only STAT Care 02/21/18 23:31 Active IV Care Q6H Care 02/22/18 00:56 Ordered IV Insertion STAT Care 02/21/18 23:31 Active Implement Chest Pain Pathway ROUTINE Care 02/22/18 00:56 Ordered Oxygen-ED Only NASAL CANNULA 2 lpm Care 02/21/18 23:[address] in Observation ROUTINE Care 02/22/18 00:56 Ordered Marco Hose, Apply ROUTINE Care 02/22/18 00:56 Ordered Telemetry ROUTINE Care 02/22/18 00:56 Ordered Vital Signs Q4H Care 02/22/18 00:56 Ordered Weight,Daily 0600 Care 02/22/18 00:56 Ordered Low Sodium Diet 02/22/18 Breakfast Ordered CHEST 1 VIEW (PORTABLE) Stat Exams 02/21/18 23:31 Taken CHEST WITH CONTRAST [CT] Stat Exams 02/22/18 00:19 Stop Req CBC W DIFF Stat Lab 02/21/18 23:40 Completed CMP Stat Lab 02/21/18 23:40 Completed D-DIMER QUANTITATION Stat Lab 02/21/18 23:40 Completed LIPID PROFILE AM.LAB Lab 02/22/18 04:00 Ordered PT INR [PROTIME WITH INR] Stat Lab 02/22/18 00:21 Completed TROPONIN Q3H Lab 02/21/18 23:40 Completed TROPONIN Q3H Lab 02/22/18 02:45 Ordered TROPONIN Q3H Lab 02/22/18 05:45 Ordered TROPONIN Q3H Lab 02/22/18 08:45 Ordered TROPONIN Q3H Lab 02/22/18 11:45 Ordered EKG Q8HX2,QAMX3,PRN RT 02/22/18 00:56 Ordered Pulse Oximetry Q4H RT 02/22/18 00:56 Ordered Respiratory Therapy Consult ROUTINE RT 02/22/18 00:59 Ordered Transfer Order Routine Transfer 02/22/18 Ordered Medication Summary Generic Name Dose Route Start Last Admin Trade Name Freq PRN Reason Stop Dose Admin Sodium Chloride 1,000 mls @ 50 mls/hr 02/21/18 23:45 02/21/18 23:44 Sodium Chloride 0.9% 1000 Ml IV 03/23/18 23:44 50 mls/hr .Q20H ARSH Administration Discontinued Medications Generic Name Dose Route Start Last Admin Trade Name Freq PRN Reason Stop Dose Admin Aspirin 324 mg 02/21/18 23:31 02/21/18 23:44 Baby Aspirin 81 Mg Chew PO 02/21/18 23:32 324 mg STAT ONE Administration Aspirin Confirm 02/21/18 23:42 Baby Aspirin 81 Mg Chew Administered 02/21/18 23:43 Dose 324 mg .ROUTE .STK-MED ONE Nitroglycerin 0.4 mg 02/21/18 23:31 02/21/18 23:44 Nitrostat 0.4 Mg (Ed) SL 02/21/18 23:32 0.4 mg STAT ONE Administration Nitroglycerin Confirm 02/21/18 23:42 Nitrostat 0.4 Mg (Ed) Administered 02/21/18 23:43 Dose 0.4 mg SL .STK-MED ONE Nitroglycerin 0.4 mg 02/22/18 00:07 02/22/18 00:09 Nitrostat 0.4 Mg (Ed) SL 02/22/18 00:08 0.4 mg STAT ONE Administration Nitroglycerin 1 gm 02/22/18 00:29 02/22/18 00:34 Nitro-Bid 2% Ud Packets TOP 02/22/18 00:30 1 gm STAT ONE Administration Nitroglycerin 0.4 mg 02/22/18 00:31 02/22/18 00:34 Nitrostat 0.4 Mg Tablet SL 02/22/18 00:32 0.4 mg STAT ONE Administration Nitroglycerin Confirm 02/22/18 00:33 Nitro-Bid 2% Ud Packets Administered 02/22/18 00:34 Dose 1 gm .ROUTE .STK-MED ONE Lab/Rad Data: Laboratory Result Diagrams 02/21/18 23:40 02/21/18 23:40 Laboratory Results 02/22/18 02/21/18 02/21/18 Range/Units 00:21 23:40 23:40 WBC (4.0-10.5) K/mm3 RBC (4.1-5.4) M/mm3 Hgb (12.0-16.0) gm/dl Hct (35-47) % MCV (78-100) fl MCH (26-32) pg MCHC (32-36) g/dl RDW (11.5-14.0) % Plt Count (150-450) K/mm3 MPV (6-9.5) fl Gran % (36.0-66.0) % Eos # (Auto) (0-0.5) Absolute Lymphs (auto) (1.0-4.6) Absolute Monos (auto) (0.0-1.3) Lymphocytes % (24.0-44.0) % Monocytes % (0.0-12.0) % Eosinophils % (0.00-5.0) % Basophils % (0.0-0.4) % Absolute Granulocytes (1.4-6.9) Basophils # (0-0.4) PT 10.9 (9.95-12.35) SECONDS INR 0.98 (0.8-3.0) D-Dimer 643.90 H* (215-500) ng/mL Sodium (137-145) mmol/L Potassium (3.5-5.1) mmol/L Chloride (98-107) mmol/L Carbon Dioxide (22-30) mmol/L Anion Gap (5-15) MEQ/L BUN (7-17) mg/dL Creatinine (0.52-1.04) mg/dL Estimated GFR ML/MIN Glucose (74-106) mg/dL Calcium (8.4-10.2) mg/dL Total Bilirubin (0.2-1.3) mg/dL AST (14-36) U/L ALT (0-35) U/L Alkaline Phosphatase (38-126) U/L Troponin I < 0.012 (0.000-0.034) ng/mL Serum Total Protein (6.3-8.2) g/dL Albumin (3.5-5.0) g/dL 02/21/18 02/21/18 Range/Units 23:40 23:40 WBC 8.0 (4.0-10.5) K/mm3 RBC 3.84 L (4.1-5.4) M/mm3 Hgb 11.6 L (12.0-16.0) gm/dl Hct 35.5 (35-47) % MCV 92.4 (78-100) fl MCH 30.2 (26-32) pg MCHC 32.7 (32-36) g/dl RDW 12.2 (11.5-14.0) % Plt Count 280 (150-450) K/mm3 MPV 11.4 H (6-9.5) fl Gran % 41.3 (36.0-66.0) % Eos # (Auto) 0.67 H (0-0.5) Absolute Lymphs (auto) 3.14 (1.0-4.6) Absolute Monos (auto) 0.83 (0.0-1.3) Lymphocytes % 39.4 (24.0-44.0) % Monocytes % 10.4 (0.0-12.0) % Eosinophils % 8.4 H (0.00-5.0) % Basophils % 0.5 (0.0-0.4) % Absolute Granulocytes 3.29 (1.4-6.9) Basophils # 0.04 (0-0.4) PT (9.95-12.35) SECONDS INR (0.8-3.0) D-Dimer (215-500) ng/mL Sodium 139 (137-145) mmol/L Potassium 4.2 (3.5-5.1) mmol/L Chloride 104 (98-107) mmol/L Carbon Dioxide 25 (22-30) mmol/L Anion Gap 14.4 (5-15) MEQ/L BUN 6 L (7-17) mg/dL Creatinine 0.74 (0.52-1.04) mg/dL Estimated GFR > 60.0 ML/MIN Glucose 110 H (74-106) mg/dL Calcium 8.9 (8.4-10.2) mg/dL Total Bilirubin 0.10 L (0.2-1.3) mg/dL AST 20 (14-36) U/L ALT 13 (0-35) U/L Alkaline Phosphatase 99 (38-126) U/L Troponin I (0.000-0.034) ng/mL Serum Total Protein 7.0 (6.3-8.2) g/dL Albumin 4.0 (3.5-5.0) g/dL - Progress Progress Note: 02/21/18 23:52 IV NORMAL SALINE 50ML/HR, ASA 324MG ORALLY, NTG 0.4MG SL X 3 DOSES, CHEST PAIN IMPROVED FROM 8/10 TO 2/10, CHEST CT NEGATIVE FOR PULMONARY EMBOLI ON 02/13/2018 02/22/18 00:[address] Wan (DISCUSSED WITH DR WAN AT 0055 FOR OBSERVATION) - Departure Time of Disposition: 01:05 Departure Disposition: Observation Clinical Impression: ACUTE CHEST PAIN Condition: Stable Critical Care Time: No Referrals: LORIN WAN [Primary Care Provider] -
[2018-02-22 00:04] LABS: ALKALINE PHOSPHATASE 99 U/L (38-126); ANION GAP 14.4 MEQ/L (5-15); BLOOD UREA NITROGEN 6 mg/dL (7-17); CHLORIDE 104 mmol/L (98-107); Calcium 8.9 mg/dL (8.4-10.2); Carbon Dioxide 25 mmol/L (22-30); Creatinine 1 0.74 mg/dL (0.52-1.04); Glucose 110 mg/dL (74-106); Potassium 4.2 mmol/L (3.5-5.1); SGOT/AST 20 U/L (14-36); SGPT/ALT 13 U/L (0-35); SODIUM 139 mmol/L (137-145)
[2018-02-22] MEDS ORDERED: Nitrostat 0.4 MG (ED) SL ONE (00:07)
[2018-02-22 00:27] LABS: INR 0.98 (0.8-3.0)
[2018-02-22] MEDS ORDERED: NITRO-BID 2% UD PACKETS TOP ONE (00:29)
[2018-02-22] MEDS ORDERED: Nitrostat 0.4 MG Tablet SL ONE (00:31)
[2018-02-22] MEDS ORDERED: NITRO-BID 2% UD PACKETS ONE ×2 (00:33→04:41)
[2018-02-22] MEDS ORDERED: MILK OF MAGNESIA 30 ML PO PRN (00:56)
[2018-02-22] MEDS ORDERED: Senokot-S Tablet PO PRN (00:56)
[2018-02-22] MEDS ORDERED: MAALOX ES 30 ML UNIT DOSE PO PRN (00:56)
[2018-02-22] MEDS ORDERED: DUONEB 0.5-3 MG/3 ml Neb IH PRN (01:00)
[2018-02-22] MEDS ORDERED: MORPHINE SULFATE 4 MG INJ IV PRN (01:03)
[2018-02-22] MEDS ORDERED: NITRO-BID 2% UD PACKETS TOP SCH (06:00)
[2018-02-22 06:55] LABS: Risk Ratio 2.8
[2018-02-22] MEDS: Advair Hfa 115/21 Common canister IH SCH ×2 (07:15→19:03)
[2018-02-22] MEDS: TYLENOL 325 MG PO PRN ×2 (07:28→14:46)
[2018-02-22] MEDS: NITRO-BID 2% UD PACKETS TOP SCH ×3 (08:53→21:48)
--- NOTE | 2018-02-22 08:58 | XRAY ---
Indication: Chest pain. Comparison: February 07, 2018. Portable chest remains clear. Heart and mediastinal structures within normal limits. Bony thorax intact again with mild degenerative changes. No new/acute findings.
[2018-02-22] MEDS ORDERED: MEDICATION INTERVENTION MC SCH (09:45)
[2018-02-22] MEDS ORDERED: NON-FORMULARY ITEM (Ranitidine Hcl [Zantac] 150 MG) PO SCH (10:00)
[2018-02-22] MEDS ORDERED: REQUIP 2MG TAB PO SCH (10:00)
[2018-02-22] MEDS ORDERED: Ecotrin 325 MG PO SCH (10:00)
--- NOTE | 2018-02-22 10:18 | HP ---
HISTORY OF PRESENT ILLNESS: This is a 52 year-old patient who presented to the emergency department. She reports that she came in because she was short of breath and had vomited twice and felt like something was sitting on her chest with pain radiating to her back. She reports her blood pressure was also high at home at 173/100. She reports she saw her commercial correspondent, Dr. Matos, last Tuesday and that he added a blood pressure medicine to try to get her blood pressure under control but before doing anything else but she cannot remember the name of this medication. She reports that she feels better this morning but still has some pressure. She reports that her right leg has been swollen and also has been hurting. She reports the pain in her in the right leg has been going on for about a month. Of note, the patient had been here in our emergency room on 02/07/2018, 02/13/2018 and then again last night all with chest pain. She also had an admission to [facility] even before this. She had an elevated D-dimer in the emergency department that I was unaware of last night when the emergency department doctor called me. She has not had any further evaluation of this. She did have CT scan of her chest back on 02/13/2018 that was normal or negative for pulmonary embolism. REVIEW OF SYSTEMS: She denies abdominal pain. No fever. She reports her cough is her normal chronic obstructive pulmonary disease cough. She denies any rashes. Her nausea resolved. PAST MEDICAL HISTORY: Chronic obstructive pulmonary disease, chronic bronchitis. History of depression. [facility] had said that she had bipolar disorder in the past but the patient denies this. Hyperlipidemia. History of heart cath in [address] Matos. History of seizure disorder but no seizure since 2012 per the patient. Pinched nerve in her neck that caused some dizziness in the past. Obstructive sleep apnea but not enough for CPAP on sleep study in 2014. A leaky heart valve per Dr. Jasper Agrawal on echocardiogram. PAST SURGICAL HISTORY: Left shoulder surgery. Cholecystectomy. Right thumb surgery. Tubal ligation. MEDICATIONS: Albuterol every six to eight hours as needed, Abilify 5 mg daily, aspirin 81 mg daily, carvedilol 6.25 mg p.o. b.i.d., Advair 100/50 mg 1 puff b.i.d., ketorolac 10 mg p.o. every six hours as needed, meclizine 25 mg p.o. b.i.d., Minipress 1 mg p.o. q.h.s., ranitidine 150 mg p.o. b.i.d., Requip 1 mg p.o. q.h.s., Simvastatin 5 mg p.o. q.h.s. ALLERGIES: MORPHINE, LEVAQUIN. SOCIAL HISTORY: She reports occasional alcohol use. She reports she quit smoking in 2001. She lives with her fiancee. FAMILY HISTORY: Her mother from renal failure and also had chronic obstructive pulmonary disease, hypertension and heart valve replacement and diabetes. Her father was the victim of a motor vehicle accident. PHYSICAL EXAMINATION: VITAL SIGNS: Temperature current 97.8F, temperature max 97.9F, heart rate 68 to 86, respiratory rate 16 to 18, blood pressure 120 to 174 over 73 to 111 currently 132/80, weight 102 kg. Oxygen saturation 96 to 100% on room air to 2 liters nasal cannula. GENERAL: The patient is lying in bed eating her breakfast in no acute distress. CVS: She has a regular rate and rhythm. No murmurs, gallops or rubs are appreciated. CHEST: Clear to auscultation bilaterally. No crackles or wheezes. ABDOMEN: Soft, nontender, nondistended with normal bowel sounds. EXTREMITIES: She has +1 edema in her right lower extremity and trace edema in her left lower extremity. SESAR hose are in place. Mild tenderness over right lower extremity to palpation. SKIN: Warm, dry and intact. LABORATORY DATA AND TESTS: Her D-dimer was elevated at 643. Hemoglobin 11.6, glucose 110. She had three negative troponins. Lipid panel within normal limits. Chest x-ray has been taken but not read by the radiologist. Her portable chest x-ray looks normal to me. ASSESSMENT AND PLAN: 1) CHEST PAIN: She is on telemetry with serial troponins and serial EKG's. Her last EKG was normal sinus rhythm with no ST-T wave changes. Heart rate 67. I will ask Dr. Matos to see her. Will continue her home medications. Will check CT scan of her chest and Doppler's of her lower extremities. 2) RIGHT LEG PAIN: Again, will check the Doppler's of lower extremities bilaterally. 3) HISTORY OF DEPRESSION: Will continue her home medications. 4) HISTORY OF CHRONIC OBSTRUCTIVE PULMONARY DISEASE: Will continue her home medications. 5) DEEP VENOUS THROMBOSIS PROPHYLAXIS: Will start her on Lovenox and continue with SESAR dey.
--- NOTE | 2018-02-22 10:27 | XRAY ---
Indication: Right leg pain. Elevated d-dimer. Two-dimensional sonogram and color Doppler imaging of the major venous vessels of the left and right leg was performed. Comparison: None No thrombus seen in the examined deep venous vessels of the left and right leg including greater saphenous veins. Veins demonstrate normal compressibility. Venous waveforms are normal with and without augmentation. Impression: Left and right legs negative for DVT.
[2018-02-22] MEDS: ECOTRIN 81 MG PO SCH (10:42)
[2018-02-22] MEDS: ENOXAPARIN SODIUM SQ SCH (10:42)
[2018-02-22] MEDS: Pepcid 20 MG PO SCH ×2 (10:42→21:49)
[2018-02-22] MEDS: Abilify 10 MG PO SCH (10:42)
[2018-02-22] MEDS: Coreg 6.25 MG PO SCH ×2 (10:42→18:15)
--- NOTE | 2018-02-22 10:52 | XRAY ---
Indication: Short of breath and elevated d-dimer.. Multiple contiguous axial images obtained through the chest using 80 cc Isovue 370 contrast and PE protocol. Comparison: February 13, 2018. There is good opacification of the pulmonary arteries. Again no filling defect or pulmonary embolus. Heart is not enlarged. No pericardial effusion. Aorta is normal in course and caliber. No pathologic mediastinal/hilar lymphadenopathy. Stable small hiatal hernia. Lungs are inflated again with minimal bilateral dependent atelectasis. No suspicious pulmonary mass, infiltrate, or effusion. Bony thorax intact again with mild degenerative changes throughout the spine. Limited upper abdomen again demonstrates fatty liver and cholecystectomy clips. Impression: 1. Again negative pulmonary embolus. No new/acute cardiopulmonary abnormalities. 2. Stable incidental small hiatal hernia and fatty liver. CT DI 23.51
--- NOTE | 2018-02-22 15:34 | CONS ---
CONSULT DATE: 02/22/2018 BRIEF HISTORY: This is a 52 year-old female who was seen because of chest pain. Her symptoms started last night while she was watching television. She started to have some chest pains like somebody was sitting on her chest and radiated to the back. She stated her blood pressure was a little elevated. She had been admitted to [facility] her work up was essentially negative. She had a cardiac catheterization done about three to four years ago that was negative. The chest pain appears to be aggravated by deep inspiration. She denies any febrile episodes. CARDIAC RISK FACTORS: She was told that she has borderline diabetes. She has history of hypertension. She is a reformed smoker and smoked about a pack of cigarettes a day for 20 years but quit about 16 years ago. She has history of hyperlipidemia. REVIEW OF SYSTEMS: SPARK PLUG TESTER: No history of stroke. No seizures. No headache. RESPIRATORY: She has chronic obstructive pulmonary disease. GI: No history of peptic ulcer or colon disorder. : Negative for dysuria or hematuria. PERIPHERAL VASCULAR: Negative for deep venous thrombosis or claudication. MUSCULOSKELETAL: She has intermittent leg pain. SKIN: No active dermatological problems. PAST SURGICAL HISTORY: Included shoulder surgery, bilateral tubal ligation, hysterectomy, surgery to the left thumb and cataract surgery. CURRENT MEDICATIONS: Albuterol inhaler, aspirin, Pepcid. PHYSICAL EXAMINATION: Her blood pressure is 131/70, heart rate 68, respirations about 14. GENERAL: The patient is a middle aged female who is mildly obese, alert, oriented, who is not in any form of distress. HEENT: Unremarkable. NECK: No significant JVD. No carotid bruit. CHEST: The breath sounds are clear. There is some tenderness along the costochondral junction. CARDIAC: Heart tones are normal. There is no audible gallop. Rhythm regular. ABDOMEN: Soft with normal bowel sounds. EXTREMITIES: No significant edema. Good distal pulses. LAB DATA AND DIAGNOSTIC TESTS: The serial troponin-I is less than 0.012. The glomerular filtration rate is greater than 60. Serum electrolytes are normal. CBC normal with hemoglobin 11.6, PLT 280,000. IMPRESSION: In essence the patient presented with chest pain somewhat atypical for angina. Work up for myocardial infarction essentially negative. I suggest a pharmacologic stress test. Meanwhile continue with modification of cardiac risk factors.
[2018-02-22] MEDS: Dextrose 5% -0.45 NaCl 1000 ML 1,000 ML IV SCH (21:48)
[2018-02-22] MEDS: Requip 0.5 MG PO SCH (21:49)
[2018-02-22] MEDS: Zocor 10MG PO SCH (21:49)
[2018-02-22] MEDS ORDERED: PRAZOSIN HCL 1 MG PO SCH (22:00)
[2018-02-22] MEDS ORDERED: NON-FORMULARY ITEM (Ropinirole Hcl [Requip] 1 MG) PO SCH (22:00)
[2018-02-22] MEDS ORDERED: NON-FORMULARY ITEM (Simvastatin [Zocor] 5 MG) PO SCH (22:00)
[2018-02-23] MEDS: TYLENOL 325 MG PO PRN ×3 (00:19→18:11)
[2018-02-23] MEDS: NITRO-BID 2% UD PACKETS TOP SCH ×3 (06:39→21:37)
[2018-02-23] MEDS: Advair Hfa 115/21 Common canister IH SCH ×2 (07:46→19:49)
[2018-02-23] MEDS: Dextrose 5% -0.45 NaCl 1000 ML 1,000 ML IV SCH ×2 (07:56→18:09)
[2018-02-23] MEDS: ECOTRIN 81 MG PO SCH (07:57)
[2018-02-23] MEDS: Abilify 10 MG PO SCH (07:57)
[2018-02-23] MEDS: Pepcid 20 MG PO SCH ×2 (07:57→21:36)
[2018-02-23] MEDS: Coreg 6.25 MG PO SCH ×2 (07:58→16:47)
--- NOTE | 2018-02-23 08:57 | PCM.NOTE ---
Date and Time: 02/23/18 0852 Subjective Assessment: Patient was seen by instructor apparel manufacture, Dr. Matos, yesterday who recommended a pharmacological stress test. Patient reports she continues to have chest pressure 2 out of 10 that is constant and a little bit worse if she eats. She has already had a cholecystectomy in the past. - Review of Systems Constitutional: No Symptoms Eyes: No Symptoms Ears, Nose, & Throat: No Symptoms Respiratory: No Symptoms Cardiac: Chest Pain Abdominal/Gastrointestinal: No Symptoms Genitourinary Symptoms: No Symptoms Musculoskeletal: No Symptoms Skin: No Symptoms Objective Exam General Appearance: no apparent distress, obese Neurologic Exam: alert, cooperative, normal mood/affect Skin Exam: normal color, warm, dry, No rash Respiratory Exam: normal breath sounds, lungs clear, No crackles/rales, No rhonchi, No wheezing Cardiovascular Exam: regular rate/rhythm, normal heart sounds, No murmur, No friction rub, No gallop Gastrointestinal/Abdomen Exam: soft, normal bowel sounds, No tenderness, No distention, No mass Extremity Exam: other (no c/c/e) OBJECTIVE DATA Vital Signs: Vital Signs - 24 hr Temp Pulse Resp BP Pulse Ox 02/23/18 08:33 97 02/23/18 07:47 72 15 97 02/23/18 07:10 98.5 F 67 18 147/86 96 02/23/18 04:00 98.1 F 74 20 129/70 95 02/23/18 03:00 95 02/23/18 00:00 98.4 F 81 16 136/67 96 02/22/18 23:00 96 02/22/18 20:10 98.0 F 77 16 124/59 97 02/22/18 19:06 67 18 94 L 02/22/18 16:00 96 02/22/18 15:55 98 F 74 18 140/72 96 02/22/18 12:31 97.8 F 72 20 141/82 97 02/22/18 12:00 97 Pain Assessment - Last Documented Pain Intensity 5 Pain Scale Used 0-10 Pain Scale Intake and Output: Intake & Output 02/21/18 02/22/18 02/23/18 02/24/18 06:59 06:59 06:59 06:59 Intake Total 3169 240 Output Total 2950 Balance 219 240 Weight 102.2 kg 101.8 kg Lab Results: Lab Results-Last 24 Hours 02/22/18 02/22/18 Range/Units 08:50 12:00 Troponin I < 0.012 < 0.012 (0.000-0.034) ng/mL Radiology Exams: Radiology Procedures Category Date Time Status CHEST WITH CONTRAST [CT] Urgent Exams 02/22/18 08:43 Completed VENOUS BILATERAL EXTREMITY [US] Routine Exams 02/22/18 10:16 Completed Assessment/Plan (1) Acute chest pain Current Visit: Yes Status: Acute Onset Date: ~02/22/18 Assessment & Plan: Pharmacological stress test ordered for AM. Dr. Matos was consulted and is following her. Continue with current medications. Her D-dimer was high and chest CT was neg for PE and dopplers of lower extremities were negative for DVT Code(s): R07.9 - CHEST PAIN, UNSPECIFIED (2) Leg pain, right Current Visit: Yes Status: Acute Assessment & Plan: Doppler was neg for DVT. Code(s): M79.604 - PAIN IN RIGHT LEG (3) Depression Current Visit: Yes Status: Acute Assessment & Plan: Continue current medication. Code(s): F32.9 - MAJOR DEPRESSIVE DISORDER, SINGLE EPISODE, UNSPECIFIED (4) COPD (chronic obstructive pulmonary disease) Current Visit: Yes Status: Acute Assessment & Plan: Continue current medication.
[2018-02-23] MEDS: ENOXAPARIN SODIUM SQ SCH (09:47)
[2018-02-23] MEDS: Nitrostat 0.4 MG Tablet SL PRN ×2 (19:40→19:50)
[2018-02-23] MEDS: Requip 0.5 MG PO SCH (21:36)
[2018-02-23] MEDS: Zocor 10MG PO SCH (21:37)
[2018-02-24] MEDS: TYLENOL 325 MG PO PRN ×4 (01:14→21:47)
[2018-02-24] MEDS: Dextrose 5% -0.45 NaCl 1000 ML 1,000 ML IV SCH ×3 (03:45→23:16)
[2018-02-24] MEDS: Zofran 4 MG/2 ML VIAL IV PRN (04:13)
[2018-02-24] MEDS: NITRO-BID 2% UD PACKETS TOP SCH ×3 (05:57→21:48)
[2018-02-24] MEDS ORDERED: LEXISCAN IV ONE (07:00)
[2018-02-24] MEDS: Advair Hfa 115/21 Common canister IH SCH ×2 (07:01→19:49)
--- NOTE | 2018-02-24 08:38 | PCM.NOTE ---
Date and Time: 02/24/18835 Subjective Assessment: Patient reports an episode of chest pain over her sternum and left arm tingling that happened yesterday evening. She reports 3 nitro took it down to a two which is where her chest pain has stayed. She reports the nitro gave her a headache. She reports she has received an injection of medication for her stress test and while I was talking with her, they came to take her for the nuclear stress test. - Review of Systems Constitutional: No Symptoms Eyes: No Symptoms Ears, Nose, & Throat: No Symptoms Respiratory: Cough Cardiac: Chest Pain Abdominal/Gastrointestinal: No Symptoms Genitourinary Symptoms: No Symptoms Musculoskeletal: No Symptoms Skin: No Symptoms Objective Exam General Appearance: no apparent distress Neurologic Exam: alert, cooperative, normal mood/affect Skin Exam: normal color, warm, dry Respiratory Exam: normal breath sounds, lungs clear, No crackles/rales, No rhonchi, No wheezing Cardiovascular Exam: regular rate/rhythm, normal heart sounds, No murmur, No friction rub, No gallop Gastrointestinal/Abdomen Exam: soft, normal bowel sounds, No tenderness, No distention, No mass, No guarding Extremity Exam: other (no c/c/e) OBJECTIVE DATA Vital Signs: Vital Signs - 24 hr Temp Pulse Resp BP BP Pulse Ox 02/24/18 07:03 75 18 98 02/24/18 05:00 96 02/24/18 04:00 98.3 F 68 18 130/79 96 02/24/18 00:47 97 02/24/18 00:10 98.2 F 77 20 144/81 96 02/23/18 21:00 97 02/23/18 20:15 98.0 F 73 18 143/76 97 02/23/18 19:50 77 22 139/75 94 L 02/23/18 19:40 77 142/90 02/23/18 16:00 97.6 F 68 18 118/76 95 02/23/18 11:48 96 02/23/18 11:29 97.5 F 69 18 120/72 96 Pain Assessment - Last Documented Pain Intensity 3 Pain Scale Used 0-10 Pain Scale Intake and Output: Intake & Output 02/22/18 02/23/18 02/24/18 02/25/18 06:59 06:59 06:59 06:59 Intake Total 3169 4431 Output Total 2950 1015 Balance 219 1931 Weight 102.2 kg 101.8 kg Lab Results: Lab Results-Last 24 Hours 02/23/18 Range/Units 20:07 Troponin I < 0.012 (0.000-0.034) ng/mL Radiology Exams: Radiology Procedures Category Date Time Status CHEST WITH CONTRAST [CT] Urgent Exams 02/22/18 08:43 Completed HEART SPECT MULTIPLE [NUCMED] Urgent Exams 02/24/18 07:32 Ordered VENOUS BILATERAL EXTREMITY [US] Routine Exams 02/22/18 10:16 Completed Multi-Disciplinary Progress Notes: Multi-Disciplinary Progress Notes 02/23/18 09:50 (created 02/23/18 12:56) Case Management Note by Kellen Hoff REVIEWED DISCHARGE PLAN, INDEPENDENT WITH ALL ADL'S. PLAN TO RETURN HOME TO PRE EPISODIC LEVEL OF FNX. Initialized on 02/23/18 12:56 - END OF NOTE Assessment/Plan (1) Acute chest pain Current Visit: Yes Status: Acute Onset Date: ~02/22/18 Assessment & Plan: Patient is having a cardiac stress test this AM. Dr. Matos has been following. Continue with current medication. Code(s): R07.9 - CHEST PAIN, UNSPECIFIED (2) Leg pain, right Current Visit: Yes Status: Acute Code(s): M79.604 - PAIN IN RIGHT LEG (3) Depression Current Visit: Yes Status: Acute Code(s): F32.9 - MAJOR DEPRESSIVE DISORDER , SINGLE EPISODE, UNSPECIFIED (4) COPD (chronic obstructive pulmonary disease) Current Visit: Yes Status: Acute
[2018-02-24] MEDS: Pepcid 20 MG PO SCH ×2 (09:32→21:47)
[2018-02-24] MEDS: Coreg 6.25 MG PO SCH ×2 (09:33→17:33)
[2018-02-24] MEDS: Abilify 10 MG PO SCH (09:33)
[2018-02-24] MEDS: ENOXAPARIN SODIUM SQ SCH (09:33)
[2018-02-24] MEDS: ECOTRIN 81 MG PO SCH (09:33)
--- NOTE | 2018-02-24 11:36 | XRAY ---
Indication: Chest pain. Comparison: December 25, 2012. Patient received 28.1 mCi technetium 99 sestamibi for the stress portion of the exam and 10.0 mCi technetium 99 sestamibi for the resting portion. 0.4 mg IV Lexiscan given as a pharmacologic stressor. Images obtained in the short, vertical, and horizontal axis. Left ventricle chamber again normal in size and configuration. Stress images now demonstrates a small focus of apical inferior lateral wall perfusion defect. This reperfuses with resting favoring reversible ischemia. No other fixed or reversible perfusion defects. Gated SPECT images demonstrates normal ventricular contractility and wall motion. Ejection fraction calculated 64 %, normal. This was previously 57%. Impression: 1. Small focus of pharmacologic induced reversible ischemia involving the apical inferior lateral wall. 2. Normal ejection fraction 64%.
[2018-02-24] MEDS: Requip 0.5 MG PO SCH (21:48)
[2018-02-24] MEDS: Zocor 10MG PO SCH (21:48)
[2018-02-25] MEDS: Zofran 4 MG/2 ML VIAL IV PRN ×2 (01:35→07:46)
[2018-02-25] MEDS: TYLENOL 325 MG PO PRN ×4 (01:50→21:55)
[2018-02-25] MEDS: NITRO-BID 2% UD PACKETS TOP SCH ×3 (05:45→21:54)
[2018-02-25] MEDS: Coreg 6.25 MG PO SCH ×2 (08:04→17:04)
[2018-02-25] MEDS: Advair Hfa 115/21 Common canister IH SCH (08:52)
[2018-02-25] MEDS: ENOXAPARIN SODIUM SQ SCH (09:04)
[2018-02-25] MEDS: Pepcid 20 MG PO SCH ×2 (09:04→21:55)
[2018-02-25] MEDS: ECOTRIN 81 MG PO SCH (09:04)
[2018-02-25] MEDS: Abilify 10 MG PO SCH (09:04)
[2018-02-25] MEDS: Dextrose 5% -0.45 NaCl 1000 ML 1,000 ML IV SCH (09:20)
--- NOTE | 2018-02-25 11:29 | PCM.NOTE ---
Date and Time: 02/25/18 1124 Subjective Assessment: Patient reports she was able to ambulate today and yesterday. She gets short of breath with ambulation but denies any bad chest pain last night. She states she continues to have 2 out of 10 chest pain at baseline. Her stress test yesterday was positive and I contacted Dr. Ramsey. I wanted to have her stay here until she can be transferred on Tuesday with plans for heart cath on Tuesday. She has been eating and drinking well without any problem. - Review of Systems Constitutional: No Symptoms Eyes: No Symptoms Ears, Nose, & Throat: No Symptoms Respiratory: Short Of Breath Cardiac: Chest Pain Abdominal/Gastrointestinal: No Symptoms Genitourinary Symptoms: No Symptoms Musculoskeletal: No Symptoms Skin: No Symptoms Objective Exam General Appearance: no apparent distress, alert, other (family at bedside) Neurologic Exam: alert, cooperative, normal mood/affect Skin Exam: normal color, warm, dry, No rash Respiratory Exam: normal breath sounds, lungs clear, No crackles/rales, No rhonchi, No wheezing Cardiovascular Exam: regular rate/rhythm, normal heart sounds, No murmur, No friction rub, No gallop Gastrointestinal/Abdomen Exam: soft, normal bowel sounds, No tenderness, No distention, No mass, No guarding Extremity Exam: other (no c/c/e) OBJECTIVE DATA Vital Signs: Vital Signs - 24 hr Temp Pulse Resp BP Pulse Ox 02/25/18 07:27 97.9 F 67 16 114/67 97 02/25/18 07:00 97 02/25/18 05:50 97.9 F 66 18 144/77 97 02/25/18 04:28 18 02/25/18 03:00 96 02/24/18 23:57 98.0 F 72 18 120/63 96 02/24/18 23:00 96 02/24/18 22:00 73 16 93 L 02/24/18 19:16 98.4 F 71 17 138/75 96 02/24/18 19:00 63 16 98 02/24/18 17:00 96 02/24/18 16:41 97.6 F 70 18 148/90 95 02/24/18 13:00 98 02/24/18 11:33 97.6 F 72 18 153/73 97 Pain Assessment - Last Documented Pain Intensity 0 Pain Scale Used 0-10 Pain Scale Intake and Output: Intake & Output 02/23/18 02/24/18 02/25/18 02/26/18 06:59 06:59 06:59 06:59 Intake Total 4278 240 Output Total 1500 Balance 2778 240 Weight 101.2 kg Multi-Disciplinary Progress Notes: Multi-Disciplinary Progress Notes 02/24/18 12:08 Case Management Note by Patricia Jeffery DR. NOTIFIED OF THE RESULTS OF THE LEXISCAN, "SMALL FOCUS OF REVERSABLE ISCHEMIA", CONTINUING TROPONINS, BEDREST AND NITRO FOR PAIN. PT WILL BE TRANSFERR[facility] TO [facility] ON TUESDAY WITH A HEART CATH SCHEDULED ON TUESDAY MORNING.....UNLESS HER CONDITION DETERIORATES, IN WHICH CASE , WE WILL CONTACT DR WAN/DR RAMSEY AND TRANSFER IMMEDIATELY. Initialized on 02/24/18 12:08 - END OF NOTE Assessment/Plan (1) Chest pain due to myocardial ischemia Current Visit: Yes Status: Acute Onset Date: ~02/24/18 Assessment & Plan: Positive stress test yesterday. Plan for transfer to [facility] tomorrow for heart cath on Tuesday. Continue current medication. Code(s): I25.9 - CHRONIC ISCHEMIC HEART DISEASE, UNSPECIFIED (2) Depression Current Visit: Yes Status: Acute Onset Date: ~02/22/18 Assessment & Plan: Stable on current treatment. Code(s): F32.9 - MAJOR DEPRESSIVE DISORDER, SINGLE EPISODE, UNSPECIFIED (3) COPD (chronic obstructive pulmonary disease) Current Visit: Yes Status: Acute Onset Date: ~02/24/18 Assessment & Plan: Stable on current treatment.
[2018-02-25] MEDS: PROVENTIL COMMON CANISTER IH PRN (16:01)
[2018-02-25 21:55] VITALS: O2SAT 96
[2018-02-25] MEDS: Requip 0.5 MG PO SCH (21:55)
[2018-02-25] MEDS: Zocor 10MG PO SCH (21:55)
[2018-02-26] MEDS: Nitrostat 0.4 MG Tablet SL PRN ×2 (01:20→01:25)
[2018-02-26] MEDS: TYLENOL 325 MG PO PRN ×2 (01:42→06:56)
[2018-02-26] MEDS: NITRO-BID 2% UD PACKETS TOP SCH (06:57)
[2018-02-26] MEDS: Coreg 6.25 MG PO SCH (07:56)
[2018-02-26] MEDS: Abilify 10 MG PO SCH (09:17)
[2018-02-26] MEDS: Pepcid 20 MG PO SCH (09:18)
[2018-02-26] MEDS: ECOTRIN 81 MG PO SCH (09:18)
[2018-02-26] MEDS: ENOXAPARIN SODIUM SQ SCH (09:18)
[2018-02-26] MEDS: PROVENTIL COMMON CANISTER IH PRN (10:43)
[2018-02-26] MEDS: Advair Hfa 115/21 Common canister IH SCH (10:44)
[2018-02-26 11:47] VITALS: BP 132/74; PULSE 62
== END 2018-02-26 13:05 | disposition short-term general hospital (02) | DRG 303 ==
LOC: ED 23:10 → MED SURG 02-22 01:55 → OBSVTOIN 02-24 07:32
PROVIDERS: ADMIT Internal Medicine; ATTEND Internal Medicine
DX: I25.9 Chronic ischemic heart disease, unspecified (principal); R07.9 Chest pain, unspecified; Z79.82 Long term (current) use of aspirin; Z79.899 Other long term (current) drug therapy; M79.661 Pain in right lower leg; Z79.02 Long term (current) use of antithrombotics/antiplatelets; F32.9 Major depressive disorder, single episode, unspecified; J44.9 Chronic obstructive pulmonary disease, unspecified
CPT/HCPCS: 36000; 36415; 71045; 71260; 78452; 80053; 80061; 83721; 84484; 85025; 85379; 85610; 93005; 93015; 93041; 93268; 93970; 94150; 94640; 94760; 96360; 99285; A9500; J1650; J2405; J2785; A9270-GY; G0378

== ENCOUNTER 2018-03-13 05:43 | Day surgery (SDC) | payer OTHER ==
[2018-03-13] MEDS ORDERED: DIPRIVAN 200 MG/20 ML IV ONE (05:44)
[2018-03-13] MEDS ORDERED: Lactated Ringers 1,000 ML IV SCH (06:00)
[2018-03-13] MEDS ORDERED: Lactated Ringers 1,000 ML IV ONE (06:23)
[2018-03-13 08:45] VITALS: O2SAT 98
[2018-03-13 09:28] VITALS: BP 120/74; PULSE 78
--- NOTE | 2018-03-13 11:06 | OP ---
SURGERY DATE/TIME: 03/13/2018801 PREOPERATIVE DIAGNOSIS: Chest pain and history of gastroesophageal reflux. POSTOPERATIVE DIAGNOSIS: Hiatal hernia, mild gastritis. PROCEDURE: Esophagogastroduodenoscopy with biopsy. SURGEON: Dr. Alvarenga. ANESTHESIA: Medications were given by the anesthesia department. BRIEF HISTORY: The patient is a 52 year old white female who has been having problems with epigastric pain into her chest. The patient reports that she had gastroesophageal reflux disease for the last 20 years. She has been aspirin for quite some time with history of having heart disease and previous angioplasty. The patient had a cardiac work up recently which has been negative and having persistent chest discomfort. She was therefore felt to need to have endoscopic evaluation. She was appraised the risks of the procedure including risk of perforation, phlebitis and untoward reaction to medications, bleeding or missed lesions. The patient verbalized her understanding and desired to have the procedure performed. DESCRIPTION OF PROCEDURE: The patient was given the medications by the anesthesia department. She had continuous pulse oximetry, ECG monitoring, intermittent blood pressure monitoring and tidal CO2 monitoring during the examination. She was placed in the left lateral decubitus position. A bite block was placed and the flexible Olympus gastroscope was used to intubate the oropharynx. A view of the larynx was obtained and was normal. The scope was easily passed in the esophagus which was normal to the gastroesophageal junction where there appeared to be a small hiatal hernia. The scope was introduced in the stomach where normal gastric rugal folds were seen and these distended nicely with insufflation of air. The scope was passed along the greater curvature of the stomach to the antrum which appeared to be mildly erythematous. The pylorus was encountered and intubated. The duodenum inspected and found to be normal. The scope was withdrawn towards the stomach. Again, a retroflex view was obtained of the lesser curvature, fundus and cardia regions of the stomach and there appeared to be again small hiatal hernia. The scope was then redirected towards the gastric antrum and biopsies were obtained to rule out the presence of Helicobacter pylori-type organisms. The scope was then removed from the patient who tolerated the procedure well and was sent back to the hospital [facility] in good condition.
== END 2018-03-13 09:30 | disposition home or self-care (01) ==
LOC: SDC 05:43
PROVIDERS: ATTEND Family Medicine
PROC: 0DB78ZX Excision of Stomach, Pylorus, Via Natural or Artificial Opening Endoscopic, Diagnostic (ICD-10-PCS; principal; 2018-03-13)
DX: R07.9 Chest pain, unspecified (principal); K21.9 Gastro-esophageal reflux disease without esophagitis; K44.9 Diaphragmatic hernia without obstruction or gangrene; K29.70 Gastritis, unspecified, without bleeding
CPT/HCPCS: 82962; J2704

== ENCOUNTER 2018-05-15 14:04 | Emergency (ER) | payer OTHER ==
[2018-05-15 15:05] VITALS: O2SAT 100
--- NOTE | 2018-05-15 15:15 | ERPHSYRPT ---
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 She did not lose consciousness. She denies nausea or vomiting. She complains of a headache and neck pain. Her work wanted her to be evaluated. Her last tetanus vaccination was more than 5 years ago. Occurred: just prior to arrival Reason for Fall: tripped, fell from standing pos Injuries/Pain Location: head, face, neck Loss of Consciousness: no loss of consciousness Quality: aching Severity of Pain-Max: moderate Severity of Pain-Current: moderate Modifying Factors: Improves With: nothing Associated Symptoms (Fall): headache, neck pain Allergies/Adverse Reactions: morphine Allergy (Verified 05/15/18 14:18) levofloxacin [From Levaquin] Adverse Reaction (Intermediate, Verified 05/15/18 14:18) PT STATES ONE TIME SHE HAD THIS MEDICINE AND HER VEINS ALL TURNED BRIGHT RED Home Medications: Albuterol Sulfate [Ventolin Hfa] 8 gm IH Q6-8HPRN PRN 02/21/18 [History] Aripiprazole [Abilify] 5 mg PO DAILY 02/21/18 [History] Fluticasone/Salmeterol [Advair 100-50 Diskus] 1 each IH BID 02/21/18 [History] Meclizine HCl 25 mg [Antivert 25 mg] 25 mg PO BID 02/21/18 [History] Prazosin HCl [Minipress] 1 mg PO HS 02/21/18 [History] Ranitidine HCl [Zantac] 150 mg PO BID 02/21/18 [History] Ropinirole HCl [Requip] 1 mg PO HS 02/21/18 [History] Simvastatin [Zocor] 5 mg PO HS 02/21/18 [History] Aspirin EC 81 mg [Ecotrin 81 mg] 81 mg PO DAILY 02/22/18 [History] Carvedilol 6.25 mg PO BID 02/22/18 [History] Ketorolac Trometh 10 mg Tab [TORAdol 10 MG TABLET] 10 mg PO Q6H PRN PRN 03/08 [History] Hx Tetanus, Diphtheria Vaccination/Date Given: Yes Hx Influenza Vaccination/Date Given: Yes Hx Pneumococcal Vaccination/Date Given: No Immunizations Up to Date: Yes - Review of Systems Constitutional: No Fever, No Chills Eyes: No Symptoms Ears, Nose, & Throat: No Symptoms Respiratory: No Cough, No Dyspnea Cardiac: No Chest Pain, No Edema, No Syncope Abdominal/Gastrointestinal: No Abdominal Pain, No Nausea, No Vomiting, No Diarrhea Genitourinary Symptoms: No Dysuria Musculoskeletal: Fall, Injury Skin: Other (abrasions) Neurological: No Dizziness, No Focal Weakness, No Sensory Changes Psychological: No Symptoms Endocrine: No Symptoms Hematologic/Lymphatic: No Symptoms Immunological/Allergic: No Symptoms All Other Systems: Reviewed and Negative - Past Medical History Pertinent Past Medical History: Yes Neurological History: Seizures ENT History: Cataracts Cardiac History: High Cholesterol, Hypertension, Other Respiratory History: Asthma, Bronchitis, COPD Endocrine Medical History: Other Musculoskeletal History: Arthritis, Osteoarthritis GI Medical History: GERD History: No Pertinent History Psycho-Social History: Anxiety, Depression Female Reproductive Disorders: No Pertinent History Other Medical History: OA IN LEFT FOOT, RIGHT HAND, NECK;. LEAKING HEART VALVE - Past Surgical History Past Surgical History: Yes Neuro Surgical History: No Pertinent History Cardiac: Angioplasty, Cardiac Catheterization Respiratory: No Pertinent History Gastrointestinal: Cholecystectomy Genitourinary: No Pertinent History Musculoskeletal: No Pertinent History, Orthopedic Surgery Female Surgical History: Tubal Ligation Other Surgical History: HEART CATH, rotator cuff in oct 2015. "leaky heart valve " - Social History Smoking Status: Former smoker How long have you smoked: 6 YEARS Exposure to second hand smoke: No Alcohol Use: None Drug Use: none Patient Lives Alone: No Significant Family History: no pertinent family hx - Female History Hx Last Menstrual Period: last month Hx Now: No - Nursing Vital Signs Nursing Vital Signs: Initial Vital Signs Temperature 98.1 F 05/15/18 14:24 Pulse Rate 131 H 05/15/18 14:24 Respiratory Rate 99 H 05/15/18 14:24 Blood Pressure 109/83 05/15/18 14:24 O2 Sat by Pulse Oximetry 18 L 05/15/18 14:24 Pain Scale Pain Intensity 8 - [place] Coma Score Best Eye Response (Morteza): (4) open spontaneously Best Verbal Response (Morteza): (5) oriented Best Motor Response (Morteza): (6) obeys commands Morteza Total: 15 - Physical Exam General Appearance: no apparent distress, alert Head Injury: contusions, ecchymosis, swelling, tenderness Eye Exam: PERRL/EOMI ENT Exam: airway nml Neck Exam: pain on movement of neck, tenderness (superior posterior) Respiratory/Chest Exam: normal breath sounds, No chest tenderness, No respiratory distress Cardiovascular Exam: normal heart sounds, regular rate/rhythm Gastrointestinal Exam: soft, No tenderness, No distention, No guarding, No ecchymosis Rectal Exam: not done Back Exam: normal inspection, No vertebral tenderness Extremity Exam: normal inspection, normal range of motion, pelvis stable, No deformities Neurologic Exam: alert, oriented x 3, cooperative, sensation nml, No motor deficits Skin Exam: abrasion (forehead and nasal bridge), ecchymosis (forehead) SpO2 Interpretation: normal SpO2: 100 Oxygen Delivery: Room Air - CT Exams Head CT Interpretation: Negative (Per Dr Hurley), Tele-radiologist Report, No Fracture , No/Intracranial Hemorrhag Cervical Spine CT Interpretation: Negative (per Dr Hurley), Tele-radiologist Report, No Fracture , No Subluxation Ordered Tests: Active Orders 24 hr Category Date Time Status Cold Application STAT Care 05/15/18 15:21 Active CERVICAL SPINE WO CONTRAST [CT] Stat Exams 05/15/18 15:21 Completed HEAD WITHOUT CONTRAST [CT] Stat Exams 05/15/18 15:21 Completed Medication Summary Discontinued Medications Generic Name Dose Route Start Last Admin Trade Name Freq PRN Reason Stop Dose Admin Diphtheria/Tetanus/Acell Pertussis 0.5 ml 05/15/18 15:21 05/15/18 16:06 Adacel Vial IM 05/15/18 15:22 0.5 ml .ONCE ONE Administration Diphtheria/Tetanus/Acell Pertussis Confirm 05/15/18 16:03 Adacel Vial Administered 05/15/18 16:04 Dose 0.5 ml IM .STK-MED ONE Ketorolac Tromethamine 60 mg 05/15/18 15:21 05/15/18 16:06 Toradol 30 Mg Injection IM 05/15/18 15:22 60 mg STAT ONE Administration Ketorolac Tromethamine Confirm 05/15/18 16:03 Toradol 30 Mg Injection Administered 05/15/18 16:04 Dose 60 mg .ROUTE .STK-MED ONE - Progress Progress: improved Counseled pt/family regarding: diagnosis, rad results - Departure Time of Disposition: 16:49 Departure Disposition: Home Clinical Impression: Fall, Facial contusion Condition: Stable Critical Care Time: No Referrals: LORIN WAN [Primary Care Provider] - Additional Instructions: You had a fall resulting in contusions of your face. The CT of your head and neck were negative. You were given Toradol 60 mg by IM in the ER. You may continue with Tylenol and ibuprofen as needed. Apply ice to the areas as needed. Follow-up as needed.
[2018-05-15] MEDS ORDERED: Adacel Vial IM ONE ×2 (15:21→16:03)
[2018-05-15] MEDS ORDERED: TORAdol 30 mg Injection IM ONE (15:21)
[2018-05-15] MEDS ORDERED: TORAdol 30 mg Injection ONE (16:03)
--- NOTE | 2018-05-15 16:14 | XRAY ---
Exam: CT of the head without IV contrast from 05/15/2018. CTDI: 49.71 Comparison: CT of the head without IV contrast from 12/02/2005. Indication: 52-year-old female with fall, bruising slightly the right of midline on forehead, complains of posterior neck pain and abrasion. Technique: Non-IV contrast axial images were obtained through the brain. Reconstructed coronal and sagittal images were created and reviewed. Findings: The ventricles appear of unremarkable size. No focal mass effect or midline shift is seen. No acute intracranial parenchymal bleed, subarachnoid hemorrhage, or subdural or epidural hematoma is seen. The johnson matter-white matter interfaces appear unremarkable. No focal low attenuation lesion is seen to suggest an acute territorial infarct or focal edema. Structures of the posterior fossa appear unremarkable. The cortical sulci and basilar cisterns appear unremarkable. The calvarium of the skull appears intact revealing no evidence of fracture. Specifically, no abnormality is seen within the frontal bone region. The visualized paranasal sinuses and mastoid air cells appear clear. The or visualized orbits appear grossly unremarkable. Impression: 1. No evidence of acute intracranial bleed or other acute intracranial abnormality is seen. 2. The calvarium of the skull appears intact.
--- NOTE | 2018-05-15 16:41 | XRAY ---
Exam: CT of the cervical spine without IV contrast from 05/15/2018. CTDI: 108.72 Comparison: CT of the cervical spine without IV contrast from 12/25/2011. Indication: Fall, bruising slightly to the right of midline on forehead, also complains of posterior neck pain. Technique: Non-IV contrast axial images were obtained through the cervical spine. Reconstructed coronal and sagittal images were created and reviewed. Findings: I see no evidence of acute cervical spine fracture, AP subluxation, or prevertebral soft tissue swelling. There is mild reversal of the normal cervical lordosis centered at C3-C4 with some straightening of cervical spine inferior to this level. Multilevel degenerative disc disease is seen from C3-C4 through C6-C7. Large anterior vertebral endplate spurs and mild posterior vertebral endplate spurs are seen at these interspace levels. 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 Mild interspace narrowing is seen at these 4 interspace levels. Some vacuum disc phenomena is seen at C3-C4. These degenerative findings have mildly progressed as compared to 12/25/2011. The facet joints are not offset. There is some mild facet osteoarthritic spurring at C2-C3 bilaterally. Also, degenerative changes of the uncovertebral joints are noted from C3-C4 through C6-C7. This also is mildly progressed as compared to 12/25/2011. The C1-C2 relationship appears unremarkable. No significant central canal stenosis is seen. There is some scattered mild cervical neural foramen narrowing due to posterior lateral vertebral endplate spurring. No cervical ribs are seen. Prior small hyperdense nodule seen within the central aspect of the left lobe of the thyroid gland is not as well-seen on the current study. Some normal-sized lymph nodes are seen scattered throughout the neck. No pathological lymphadenopathy is seen. The remainder of the soft tissue structures appear unremarkable. Impression: 1. I see no acute cervical spine fracture, AP traumatic subluxation, or prevertebral soft tissue swelling. 2. Multilevel degenerative disc disease and joint of joint disease are seen throughout the cervical spine, as described above. This has mildly progressed as compared to 12/25/2011.
[2018-05-15 17:01] VITALS: BP 131/100; PULSE 73
== END 2018-05-15 17:02 | disposition home or self-care (01) ==
LOC: ED 14:04
DX: S00.33XA Contusion of nose, initial encounter (principal); S00.83XA Contusion of other part of head, initial encounter; R51 Headache; M54.2 Cervicalgia; W01.198A Fall on same level from slipping, tripping and stumbling with subsequent striking against other object, initial encounter; Y93.9 Activity, unspecified; Y92.524 Gas station as the place of occurrence of the external cause; Y99.0 Civilian activity done for income or pay; Z79.899 Other long term (current) drug therapy
CPT/HCPCS: 70450; 72125; 90471; 90715; 96372; 99284; J1885

== ENCOUNTER 2018-05-25 16:33 | Emergency (ER) | payer OTHER ==
[2018-05-25] MEDS ORDERED: Sodium Chloride 0.9% 1000 ML 1,000 ML IV STA (17:07)
--- NOTE | 2018-05-25 17:14 | ERPHSYRPT ---
- History of Present Illness Time Seen by Provider: 05/25/18 17:05 Source: patient Exam Limitations: no limitations Patient Subjective Stated Complaint: Pt states "I passed out earlier today, around noon, and I have not felt right since." Triage Nursing Assessment: Pt alert and oriented X 3, skin pwd. Pt ambulationes with an upright steady gait, able to speak in clear full sentences. Pt in no apparent respiratory distress. Physician History: 52-year-old white female states she hasn't felt good all day she states she was standing in the she became dizzy and passed out around noon. She states she hit the back of her head she has no chest pain no shortness of breath no abdominal pain no nausea no vomiting. Past medical history includes seizures, cataracts, hyperlipidemia, high blood pressure, asthma, bronchitis, arthritis, GERD, anxiety, depression, arthritis of the left foot right hand and neck, leaky heart valve.. Past surgical history includes angioplasty, cardiac catheter, cholecystectomy, orthopedic surgery, tubal ligation, heart catheter, rotator cuff Timing/Duration: today Severity: moderate Modifying Factors: Improves With: nothing Associated Symptoms: No nausea, No vomiting, No abdominal pain, No shortness of breath, No heartburn, No diaphoresis, No cough, No chills, No chest pain, No fever, No headaches, No loss of appetite, No malaise, No rash, No syncope, No seizure Allergies/Adverse Reactions: morphine Allergy (Verified 05/15/18 14:18) levofloxacin [From Levaquin] Adverse Reaction (Intermediate, Verified 05/15/18 14:18) PT STATES ONE TIME SHE HAD THIS MEDICINE AND HER VEINS ALL TURNED BRIGHT RED Home Medications: Albuterol Sulfate [Ventolin Hfa] 8 gm IH Q6-8HPRN PRN 02/21/18 [History] Aripiprazole [Abilify] 5 mg PO DAILY 02/21/18 [History] Fluticasone/Salmeterol [Advair 100-50 Diskus] 1 each IH BID 02/21/18 [History] Meclizine HCl 25 mg [Antivert 25 mg] 25 mg PO BID 02/21/18 [History] Prazosin HCl [Minipress] 1 mg PO HS 02/21/18 [History] Ranitidine HCl [Zantac] 150 mg PO BID 02/21/18 [History] Ropinirole HCl [Requip] 1 mg PO HS 02/21/18 [History] Simvastatin [Zocor] 5 mg PO HS 02/21/18 [History] Aspirin EC 81 mg [Ecotrin 81 mg] 81 mg PO DAILY 02/22/18 [History] Carvedilol 6.25 mg PO BID 02/22/18 [History] Ketorolac Trometh 10 mg Tab [TORAdol 10 MG TABLET] 10 mg PO Q6H PRN PRN 03/08 [History] Modafinil 200 mg PO DAILY 05/25/18 [History] Hx Tetanus, Diphtheria Vaccination/Date Given: Yes Hx Influenza Vaccination/Date Given: Yes Hx Pneumococcal Vaccination/Date Given: Yes Immunizations Up to Date: Yes - Review of Systems Constitutional: No Fever, No Chills Eyes: No Symptoms Ears, Nose, & Throat: No Symptoms Respiratory: No Cough, No Dyspnea Cardiac: Syncope, No Chest Pain, No Edema, No Palpitations, No Orthopnea, No PND Abdominal/Gastrointestinal: No Abdominal Pain, No Nausea, No Vomiting, No Diarrhea Genitourinary Symptoms: No Dysuria Musculoskeletal: Neck Pain, No Arthralgias, No Back Pain, No Deformity, No Fall , No Injury, No Joint Redness, No Joint Pain, No Joint Swelling, No Myalgias Skin: No Rash Neurological: No Dizziness, No Focal Weakness, No Sensory Changes Psychological: No Symptoms Endocrine: No Symptoms All Other Systems: Reviewed and Negative - Past Medical History Pertinent Past Medical History: Yes Neurological History: Seizures ENT History: Cataracts Cardiac History: High Cholesterol, Hypertension, Other Respiratory History: Asthma, Bronchitis, COPD Endocrine Medical History: Other Musculoskeletal History: Arthritis, Osteoarthritis GI Medical History: GERD History: No Pertinent History Psycho-Social History: Anxiety, Depression Female Reproductive Disorders: No Pertinent History Other Medical History: OA IN LEFT FOOT, RIGHT HAND, NECK;. LEAKING HEART VALVE - Past Surgical History Past Surgical History: Yes Neuro Surgical History: No Pertinent History Cardiac: Angioplasty, Cardiac Catheterization Respiratory: No Pertinent History Gastrointestinal: Cholecystectomy Genitourinary: No Pertinent History Musculoskeletal: No Pertinent History, Orthopedic Surgery Female Surgical History: Tubal Ligation Other Surgical History: HEART CATH, rotator cuff in oct 2015. "leaky heart valve " - Social History Smoking Status: Former smoker How long have you smoked: 6 YEARS Exposure to second hand smoke: Yes Alcohol Use: None Drug Use: none Patient Lives Alone: No Significant Family History: no pertinent family hx - Female History Hx Last Menstrual Period: 04/09/2018 Hx Now: (tubal) - Nursing Vital Signs Nursing Vital Signs: Initial Vital Signs Temperature 97.5 F 05/25/18 16:39 Pulse Rate 80 05/25/18 16:39 Respiratory Rate 16 05/25/18 16:39 Blood Pressure 152/84 05/25/18 16:39 O2 Sat by Pulse Oximetry 100 05/25/18 16:39 Pain Scale Pain Intensity 0 - Physical Exam General Appearance: no apparent distress, alert Eye Exam: PERRL/EOMI, eyes nml inspection Ears, Nose, Throat Exam: normal ENT inspection, TMs normal, pharynx normal, moist mucous membranes Neck Exam: normal inspection Respiratory Exam: normal breath sounds, lungs clear, No respiratory distress Cardiovascular Exam: regular rate/rhythm, normal heart sounds, normal peripheral pulses Gastrointestinal/Abdomen Exam: soft, normal bowel sounds, No tenderness, No mass Back Exam: normal inspection, normal range of motion, No CVA tenderness, No vertebral tenderness Extremity Exam: normal inspection, normal range of motion, pelvis stable Neurologic Exam: alert, oriented x 3, cooperative, normal mood/affect, nml cerebellar function, nml station & gait, sensation nml, No motor deficits Skin Exam: normal color, warm, dry, No rash Lymphatic Exam: No adenopathy SpO2 Interpretation: normal (100%) SpO2: 100 Oxygen Delivery: Room Air - Course Nursing assessment & vital signs reviewed: Yes EKG Interpreted by Me: RATE (82 bpm), Sinus Rhythm, NORMAL AXIS, Other (EKG: Sinus rhythm, 82 bpm, normal axis, no acute ST or T wave changes. compared to February 26, 2018) - CT Exams Cervical Spine CT Interpretation: Discussed w/radiologist (CT C-spine: Impression: Stable C3- C7 degenerative disc disease and lordotic straightening compared to May 15, 2018 no new or acute findings) Head CT Interpretation: Discussed w/radiologist (CT head without contrast: stable normal CT head compared to May 15, 2018) Ordered Tests: Active Orders 24 hr Category Date Time Status Accucheck STAT Care 05/25/18 17:07 Active EKG-ER Only STAT Care 05/25/18 17:07 Active IV Insertion STAT Care 05/25/18 17:07 Active Orthostatic Vital Signs STAT Care 05/25/18 17:07 Active CERVICAL SPINE WO CONTRAST [CT] Stat Exams 05/25/18 17:08 Taken HEAD WITHOUT CONTRAST [CT] Stat Exams 05/25/18 17:08 Taken CBC W DIFF Stat Lab 05/25/18 17:20 Completed CMP Stat Lab 05/25/18 17:20 Completed HCG QUALITATIVE,SERUM Stat Lab 05/25/18 17:20 Completed TROPONIN Q3H Lab 05/25/18 17:20 Completed UA W/RFX UR CULTURE Stat Lab 05/25/18 18:52 Completed Medication Summary Discontinued Medications Generic Name Dose Route Start Last Admin Trade Name Curry PRN Reason Stop Dose Admin Sodium Chloride 1,000 mls @ 999 mls/hr 05/25/18 17:07 05/25/18 18:40 Sodium Chloride 0.9% 1000 Ml IV 05/25/18 18:07 Infused .Q1H1M STA Infusion Sodium Chloride Confirm 05/25/18 17:27 Sodium Chloride 0.9% 1000 Ml Administered 05/25/18 17:28 Dose 1,000 mls @ ud .ROUTE .STK-MED ONE Lab/Rad Data: Laboratory Result Diagrams 05/25/18 17:20 05/25/18 17:20 Laboratory Results 05/25/18 05/25/18 05/25/18 Range/Units 18:52 17:20 17:20 WBC (4.0-10.5) K/mm3 RBC (4.1-5.4) M/mm3 Hgb (12.0-16.0) gm/dl Hct (35-47) % MCV (78-100) fl MCH (26-32) pg MCHC (32-36) g/dl RDW (11.5-14.0) % Plt Count (150-450) K/mm3 MPV (6-9.5) fl Gran % (36.0-66.0) % Eos # (Auto) (0-0.5) Absolute Lymphs (auto) (1.0-4.6) Absolute Monos (auto) (0.0-1.3) Lymphocytes % (24.0-44.0) % Monocytes % (0.0-12.0) % Eosinophils % (0.00-5.0) % Basophils % (0.0-0.4) % Absolute Granulocytes (1.4-6.9) Basophils # (0-0.4) Sodium (137-145) mmol/L Potassium (3.5-5.1) mmol/L Chloride (98-107) mmol/L Carbon Dioxide (22-30) mmol/L Anion Gap (5-15) MEQ/L BUN (7-17) mg/dL Creatinine (0.52-1.04) mg/dL Estimated GFR ML/MIN Glucose (74-106) mg/dL Calcium (8.4-10.2) mg/dL Total Bilirubin (0.2-1.3) mg/dL AST (14-36) U/L ALT (0-35) U/L Alkaline Phosphatase (38-126) U/L Troponin I < 0.012 (0.000-0.034) ng/mL Serum Total Protein (6.3-8.2) g/dL Albumin (3.5-5.0) g/dL Serum , Qual NEGATIVE (Negative) Ur Collection Type VOID Urine Color DARK YELLOW (YELLOW) Urine Appearance HAZY (CLEAR) Urine pH 5.0 (5-6) Ur Specific [place] 1.030 (1.005-1.025) Urine Protein NEGATIVE (Negative) Urine Ketones NEGATIVE (NEGATIVE) Urine Blood NEGATIVE (0-5) Stu/ul Urine Nitrite NEGATIVE (NEGATIVE) Urine Bilirubin NEGATIVE (NEGATIVE) Urine Urobilinogen NORMAL (0-1) mg/dL Ur Leukocyte Esterase NEGATIVE (NEGATIVE) Urine Culture Reflexed NO (NO) Urine Glucose NEGATIVE (NEGATIVE) mg/dL Specimen Received 05/25/18 [id number] 05/25/18 05/25/18 Range/Units 17:20 17:20 WBC 10.0 (4.0-10.5) K/mm3 RBC 4.03 L (4.1-5.4) M/mm3 Hgb 12.1 (12.0-16.0) gm/dl Hct 36.5 (35-47) % MCV 90.6 (78-100) fl MCH 30.0 (26-32) pg MCHC 33.2 (32-36) g/dl RDW 12.3 (11.5-14.0) % Plt Count 257 (150-450) K/mm3 MPV 11.7 H (6-9.5) fl Gran % 60.8 (36.0-66.0) % Eos # (Auto) 0.34 (0-0.5) Absolute Lymphs (auto) 2.61 (1.0-4.6) Absolute Monos (auto) 0.95 (0.0-1.3) Lymphocytes % 26.0 (24.0-44.0) % Monocytes % 9.5 (0.0-12.0) % Eosinophils % 3.4 (0.00-5.0) % Basophils % 0.3 (0.0-0.4) % Absolute Granulocytes 6.10 (1.4-6.9) Basophils # 0.03 (0-0.4) Sodium 140 (137-145) mmol/L Potassium 4.0 (3.5-5.1) mmol/L Chloride 104 (98-107) mmol/L Carbon Dioxide 26 (22-30) mmol/L Anion Gap 13.8 (5-15) MEQ/L BUN 19 H (7-17) mg/dL Creatinine 0.96 (0.52-1.04) mg/dL Estimated GFR > 60.0 ML/MIN Glucose 111 H (74-106) mg/dL Calcium 9.2 (8.4-10.2) mg/dL Total Bilirubin 0.30 (0.2-1.3) mg/dL AST 14 (14-36) U/L ALT 15 (0-35) U/L Alkaline Phosphatase 93 (38-126) U/L Troponin I (0.000-0.034) ng/mL Serum Total Protein 7.4 (6.3-8.2) g/dL Albumin 4.3 (3.5-5.0) g/dL Serum , Qual (Negative) Ur Collection Type Urine Color (YELLOW) Urine Appearance (CLEAR) Urine pH (5-6) Ur Specific [place] (1.005-1.025) Urine Protein (Negative) Urine Ketones (NEGATIVE) Urine Blood (0-5) Stu/ul Urine Nitrite (NEGATIVE) Urine Bilirubin (NEGATIVE) Urine Urobilinogen (0-1) mg/dL Ur Leukocyte Esterase (NEGATIVE) Urine Culture Reflexed (NO) Urine Glucose (NEGATIVE) mg/dL Specimen Received - Progress Progress: improved Progress Note: 05/25/18 18:42 This is a 52-year-old white female with history of seizures, cataracts, hype leukemia, high blood pressure, asthma, bronchitis, arthritis, GERD, anxiety, depression She states that she passed out around 11:00 morning. Patient states she has not been feeling well. She has no chest pain. She has a normal neurologic examination. Patient's EKG is normal patient's head CT is normal(patient had stated that she hit her head and was having some a neck pain and was feeling dizzy today) Patient was a normal CBC essentially normal chemistry Normal troponin, Patient has not provided a urine she just states she doesn't have to. Patient has received 1 L of normal saline. She has normal orthostatic vital signs. She has a completely normal neurologic exam. Patient states that she felt dizzy before she passed out. Plan to discharge patient once the urine results are available. Patient will need to follow-up with her family doctor. - Departure Time of Disposition: 19:20 Departure Disposition: Home Clinical Impression: Dizziness Syncope Qualifiers: Syncope type: unspecified Qualified Code(s): R55 - Syncope and collapse Condition: Fair Critical Care Time: No Referrals: LORIN WAN [Primary Care Provider] - Additional Instructions: Return home. Plenty of fluids. Follow-up with your family doctor. Avoid hazardous activity no driving no heights. Do not engage in any activity which might harm you or others.
[2018-05-25] MEDS ORDERED: Sodium Chloride 0.9% 1000 ML 1,000 ML ONE (17:27)
[2018-05-25 17:52] LABS: BASOPHIL % 0.3 % (0.0-0.4); Basophil (Absolute #) 0.03 (0-0.4); Eosinophil % 3.4 % (0.00-5.0); Eosinophil (Absolute #) 0.34 (0-0.5); Granulocytes % 60.8 % (36.0-66.0); Hematocrit 36.5 % (35-47); Hemoglobin 12.1 gm/dl (12.0-16.0); Lymphocyte (Absolute #) 2.61 (1.0-4.6); Mean Cell Volume 90.6 fl (78-100); Mean Corpuscular Hgb Concent. 33.2 g/dl (32-36); Mean Platelet Volume 11.7 fl (6-9.5); Monocyte (Absolute #) 0.95 (0.0-1.3); Monocytes % 9.5 % (0.0-12.0); Platelet Count 257 K/mm3 (150-450); Red Blood Count 4.03 M/mm3 (4.1-5.4); Red Cell Distribution Width 12.3 % (11.5-14.0)
[2018-05-25 18:11] LABS: ALBUMIN 4.3 g/dL (3.5-5.0); ALKALINE PHOSPHATASE 93 U/L (38-126); ANION GAP 13.8 MEQ/L (5-15); BLOOD UREA NITROGEN 19 mg/dL (7-17); CHLORIDE 104 mmol/L (98-107); Calcium 9.2 mg/dL (8.4-10.2); Carbon Dioxide 26 mmol/L (22-30); Creatinine 1 0.96 mg/dL (0.52-1.04); Glucose 111 mg/dL (74-106); SGOT/AST 14 U/L (14-36); SGPT/ALT 15 U/L (0-35); SODIUM 140 mmol/L (137-145); Total Protein 7.4 g/dL (6.3-8.2)
[2018-05-25 18:57] LABS: Appearance HAZY (CLEAR); Bilirubin NEGATIVE (NEGATIVE); Blood NEGATIVE Ery/ul (0-5); Glucose NEGATIVE (NEGATIVE); Ketones NEGATIVE (NEGATIVE); Leukocyte Esterase NEGATIVE (NEGATIVE); Nitrite NEGATIVE (NEGATIVE); Protein,Urine Dip NEGATIVE (Negative); Urobilinogen NORMAL mg/dL (0-1)
[2018-05-25 19:20] VITALS: BP 125/64; PULSE 82
[2018-05-26 07:06] VITALS: O2SAT 100
--- NOTE | 2018-05-26 08:38 | XRAY ---
Indication: Head and neck pain following fall and syncope. Multiple contiguous axial images obtained through the head without contrast. Comparison: May 15, 2018. Again normal appearing brain parenchyma, ventricles, and bony calvarium. Visualized paranasal sinuses and mastoid air cells are clear. Impression: Stable normal CT head without contrast exam. CT DI 52.21
--- NOTE | 2018-05-26 08:39 | XRAY ---
Indication: Neck pain following fall. Syncope. Multiple contiguous axial images obtained through the cervical spine. Sagittal and coronal reformatted images obtained. Comparison: May 15, 2018. Axial images again negative for acute fracture, suspicious bony lesions, or spinal canal stenosis. Stable moderate C3-C7 degenerative endplate spurring. Stable bilateral C2-C3 degenerative facet arthropathy. Sagittal and coronal reformatted images again demonstrate straightening of the cervical lordosis and mild C3-C7 degenerative disc space narrowing. No acute compression fracture, subluxation, or jumped facet. Normal-appearing craniocervical junction. Visualized noncontrasted soft tissues including lung apices are unremarkable. Impression: 1. Again negative for acute fracture/subluxation. Stable cervical lordotic straightening, positional versus paraspinal spasm. 2. Stable multilevel degenerative changes. CT DI 61.96
== END 2018-05-25 19:25 | disposition home or self-care (01) ==
LOC: ED 16:33
DX: R42 Dizziness and giddiness (principal); R55 Syncope and collapse; M54.2 Cervicalgia; W18.39XA Other fall on same level, initial encounter; Y92.009 Unspecified place in unspecified non-institutional (private) residence as the place of occurrence of the external cause
CPT/HCPCS: 36000; 36415; 70450; 72125; 80053; 81002; 82962; 84484; 84703; 85025; 93005; 96360; 99284

== ENCOUNTER 2018-07-30 03:55 | Emergency (ER) | payer OTHER ==
[2018-07-30] MEDS ORDERED: Sodium Chloride 0.9% 1000 ML 1,000 ML IV STA (04:20)
[2018-07-30] MEDS ORDERED: Zofran 4 MG/2 ML VIAL IV ONE (04:20)
--- NOTE | 2018-07-30 04:24 | ERPHSYRPT ---
- History of Present Illness Time Seen by Provider: 07/30/18 04:15 Source: patient, family Exam Limitations: no limitations Patient Subjective Stated Complaint: pt states she was out drinking tonight. family states that she vomited and passed out. states they were worried about her choking after vomiting Triage Nursing Assessment: pt drowsy, answers questions approp. pt in per wheelchair. transfer from wheelchair to stretcher with assist of 1. respirations nonlabored with lungs cta. pt vomited x1, undigested food. bowel sounds present. pupils equal and reactive. bilat upper and lower strength equal and wnl. Physician History: 53 y/o female brought in by after drinking all night and he said she almost passed out. He reports that she was vomiting a few times. Pt is alert and answering questions even though she is intoxicated. He mentions that she is borderline diabetic. Pt has no complaints except for complaining of nausea. Pt denies any chest pain, shortness of breath, dizziness, headache or blurry vision. Timing/Duration: today Associated Symptoms: nausea, vomiting Allergies/Adverse Reactions: morphine Allergy (Verified 07/30/18 04:13) levofloxacin [From Levaquin] Adverse Reaction (Intermediate, Verified 07/30/18 04:13) PT STATES ONE TIME SHE HAD THIS MEDICINE AND HER VEINS ALL TURNED BRIGHT RED Home Medications: Albuterol Sulfate [Ventolin Hfa] 8 gm IH Q6-8HPRN PRN 02/21/18 [History] Aripiprazole [Abilify] 5 mg PO DAILY 02/21/18 [History] Fluticasone/Salmeterol [Advair 100-50 Diskus] 1 each IH BID 02/21/18 [History] Meclizine HCl 25 mg [Antivert 25 mg] 25 mg PO BID 02/21/18 [History] Prazosin HCl [Minipress] 1 mg PO HS 02/21/18 [History] Ranitidine HCl [Zantac] 150 mg PO BID 02/21/18 [History] Ropinirole HCl [Requip] 1 mg PO HS 02/21/18 [History] Simvastatin [Zocor] 5 mg PO HS 02/21/18 [History] Aspirin EC 81 mg [Ecotrin 81 mg] 81 mg PO DAILY 02/22/18 [History] Carvedilol 6.25 mg PO BID 02/22/18 [History] Ketorolac Trometh 10 mg Tab [TORAdol 10 MG TABLET] 10 mg PO Q6H PRN PRN 03/08 [History] Modafinil 200 mg PO DAILY 05/25/18 [History] Hx Tetanus, Diphtheria Vaccination/Date Given: Yes Hx Influenza Vaccination/Date Given: Yes Hx Pneumococcal Vaccination/Date Given: Yes Immunizations Up to Date: Yes - Review of Systems Constitutional: Other (intoxicated), No Fever, No Chills Eyes: No Symptoms Ears, Nose, & Throat: No Symptoms Respiratory: No Cough, No Dyspnea Cardiac: Other (near syncope), No Chest Pain, No Edema, No Syncope Abdominal/Gastrointestinal: No Abdominal Pain, No Nausea, No Vomiting, No Diarrhea Genitourinary Symptoms: No Dysuria Musculoskeletal: No Back Pain, No Neck Pain Skin: No Rash Neurological: No Dizziness, No Focal Weakness, No Sensory Changes Psychological: No Symptoms Endocrine: No Symptoms All Other Systems: Reviewed and Negative - Past Medical History Pertinent Past Medical History: Yes Neurological History: Seizures ENT History: Cataracts Cardiac History: High Cholesterol, Hypertension, Other Respiratory History: Asthma, Bronchitis, COPD Endocrine Medical History: Other Musculoskeletal History: Arthritis, Osteoarthritis GI Medical History: GERD History: No Pertinent History Psycho-Social History: Anxiety, Depression Female Reproductive Disorders: No Pertinent History Other Medical History: OA IN LEFT FOOT, RIGHT HAND, NECK;. LEAKING HEART VALVE - Past Surgical History Past Surgical History: Yes Neuro Surgical History: No Pertinent History Cardiac: Angioplasty, Cardiac Catheterization Respiratory: No Pertinent History Gastrointestinal: Cholecystectomy Genitourinary: No Pertinent History Musculoskeletal: No Pertinent History, Orthopedic Surgery Female Surgical History: Tubal Ligation Other Surgical History: HEART CATH, rotator cuff in oct 2015. "leaky heart valve " - Social History Smoking Status: Former smoker How long have you smoked: 6 YEARS Exposure to second hand smoke: Yes Alcohol Use: None Drug Use: none Patient Lives Alone: No Significant Family History: no pertinent family hx - Female History Hx Last Menstrual Period: last month Hx Now: No - Nursing Vital Signs Nursing Vital Signs: Initial Vital Signs Temperature 97.8 F 07/30/18 04:05 Pulse Rate 79 07/30/18 04:05 Respiratory Rate 16 07/30/18 04:05 Blood Pressure 153/99 07/30/18 04:05 O2 Sat by Pulse Oximetry 99 07/30/18 04:05 Pain Scale Pain Intensity 0 - Physical Exam General Appearance: alert, other (intoxicated) Eye Exam: PERRL/EOMI, eyes nml inspection Ears, Nose, Throat Exam: normal ENT inspection, TMs normal, pharynx normal, moist mucous membranes Neck Exam: normal inspection, non-tender, supple, full range of motion Respiratory Exam: normal breath sounds, lungs clear, No respiratory distress Cardiovascular Exam: regular rate/rhythm, normal heart sounds, normal peripheral pulses Gastrointestinal/Abdomen Exam: soft, normal bowel sounds, No tenderness, No mass Back Exam: normal inspection, normal range of motion, No CVA tenderness, No vertebral tenderness Extremity Exam: normal inspection, normal range of motion, pelvis stable Neurologic Exam: alert, oriented x 3, cooperative, normal mood/affect, nml cerebellar function, nml station & gait, sensation nml, No motor deficits Skin Exam: normal color, warm, dry, No rash Lymphatic Exam: No adenopathy SpO2: 99 Oxygen Delivery: Room Air - Course Nursing assessment & vital signs reviewed: Yes Ordered Tests: Active Orders 24 hr Category Date Time Status IV Insertion STAT Care 07/30/18 04:20 Active CBC W DIFF Stat Lab 07/30/18 04:36 Completed CMP Stat Lab 07/30/18 04:36 Completed ETHYL ALCOHOL Stat Lab 07/30/18 04:36 Completed Medication Summary Generic Name Dose Route Start Last Admin Trade Name Freq PRN Reason Stop Dose Admin Sodium Chloride 1,000 mls @ 999 mls/hr 07/30/18 04:20 07/30/18 04:32 Sodium Chloride 0.9% 1000 Ml IV 07/30/18 05:20 999 mls/hr .Q1H1M STA Administration Discontinued Medications Generic Name Dose Route Start Last Admin Trade Name Freq PRN Reason Stop Dose Admin Sodium Chloride Confirm 07/30/18 04:28 Sodium Chloride 0.9% 1000 Ml Administered 07/30/18 04:29 Dose 1,000 mls @ ud .ROUTE .STK-MED ONE Ondansetron HCl 4 mg 07/30/18 04:20 07/30/18 04:32 Zofran 4 Mg/2 Ml Vial IV 07/30/18 04:21 4 mg STAT ONE Administration Ondansetron HCl Confirm 07/30/18 04:28 Zofran 4 Mg/2 Ml Vial Administered 07/30/18 04:29 Dose 4 mg .ROUTE .STK-MED ONE Lab/Rad Data: Laboratory Result Diagrams 07/30/18 04:36 07/30/18 04:36 Laboratory Results 07/30/18 07/30/18 Range/Units 04:36 04:36 WBC 8.7 (4.0-10.5) K/mm3 RBC 4.21 (4.1-5.4) M/mm3 Hgb 12.9 (12.0-16.0) gm/dl Hct 38.0 (35-47) % MCV 90.3 (78-100) fl MCH 30.6 (26-32) pg MCHC 33.9 (32-36) g/dl RDW 12.7 (11.5-14.0) % Plt Count 215 (150-450) K/mm3 MPV 11.6 H (6-9.5) fl Gran % 53.5 (36.0-66.0) % Eos # (Auto) 0.44 (0-0.5) Absolute Lymphs (auto) 2.93 (1.0-4.6) Absolute Monos (auto) 0.63 (0.0-1.3) Lymphocytes % 33.7 (24.0-44.0) % Monocytes % 7.2 (0.0-12.0) % Eosinophils % 5.1 H (0.00-5.0) % Basophils % 0.5 (0.0-0.4) % Absolute Granulocytes 4.66 (1.4-6.9) Basophils # 0.04 (0-0.4) Sodium 142 (137-145) mmol/L Potassium 3.9 (3.5-5.1) mmol/L Chloride 104 (98-107) mmol/L Carbon Dioxide 26 (22-30) mmol/L Anion Gap 15.6 H (5-15) MEQ/L BUN 10 (7-17) mg/dL Creatinine 0.80 (0.52-1.04) mg/dL Estimated GFR > 60.0 ML/MIN Glucose 120 H (74-106) mg/dL Calcium 9.2 (8.4-10.2) mg/dL Total Bilirubin 0.20 (0.2-1.3) mg/dL AST 19 (14-36) U/L ALT 18 (0-35) U/L Alkaline Phosphatase 117 (38-126) U/L Serum Total Protein 7.8 (6.3-8.2) g/dL Albumin 4.5 (3.5-5.0) g/dL Ethyl Alcohol 156 H (0-10) mg/dL - Progress Progress: improved Progress Note: 07/30/18 05:05 Alcohol level is 156. The labs are unremarkable. The patient has received NS fluids and zofran. Pt will be released with the after receiving fluids. - Departure Time of Disposition: 05:06 Departure Disposition: Home Clinical Impression: Alcohol intoxication Qualifiers: Complication of substance-induced condition: uncomplicated Qualified Code(s): F10.920 - Alcohol use, unspecified with intoxication, uncomplicated Condition: Stable Critical Care Time: No Referrals: LORIN WAN [Primary Care Provider] - Instructions: Alcohol Abuse and Alcoholism (DC) Additional Instructions: Follow up with your primary care doctor in the next few days.
[2018-07-30] MEDS ORDERED: Sodium Chloride 0.9% 1000 ML 1,000 ML ONE (04:28)
[2018-07-30] MEDS ORDERED: Zofran 4 MG/2 ML VIAL ONE (04:28)
[2018-07-30 04:40] LABS: BASOPHIL % 0.5 % (0.0-0.4); Basophil (Absolute #) 0.04 (0-0.4); Eosinophil % 5.1 % (0.00-5.0); Eosinophil (Absolute #) 0.44 (0-0.5); Granulocyte Absolute (ANC) 4.66 (1.4-6.9); Granulocytes % 53.5 % (36.0-66.0); Hemoglobin 12.9 gm/dl (12.0-16.0); Lymphocyte (Absolute #) 2.93 (1.0-4.6); Lymphocytes % 33.7 % (24.0-44.0); Mean Cell Volume 90.3 fl (78-100); Mean Corpuscular Hemoglobin 30.6 pg (26-32); Mean Corpuscular Hgb Concent. 33.9 g/dl (32-36); Mean Platelet Volume 11.6 fl (6-9.5); Monocyte (Absolute #) 0.63 (0.0-1.3); Monocytes % 7.2 % (0.0-12.0); Platelet Count 215 K/mm3 (150-450); Red Blood Count 4.21 M/mm3 (4.1-5.4); Red Cell Distribution Width 12.7 % (11.5-14.0); White Blood Count 8.7 K/mm3 (4.0-10.5)
[2018-07-30 04:58] LABS: ALBUMIN 4.5 g/dL (3.5-5.0); ALKALINE PHOSPHATASE 117 U/L (38-126); ANION GAP 15.6 MEQ/L (5-15); BLOOD UREA NITROGEN 10 mg/dL (7-17); CHLORIDE 104 mmol/L (98-107); Calcium 9.2 mg/dL (8.4-10.2); Carbon Dioxide 26 mmol/L (22-30); ETHYL ALCOHOL 156 mg/dL (0-10); Glucose 120 mg/dL (74-106); Potassium 3.9 mmol/L (3.5-5.1); SGOT/AST 19 U/L (14-36); SGPT/ALT 18 U/L (0-35); SODIUM 142 mmol/L (137-145); Total Protein 7.8 g/dL (6.3-8.2)
[2018-07-30 06:06] VITALS: BP 148/87; PULSE 87; O2SAT 98
== END 2018-07-30 05:50 | disposition home or self-care (01) ==
LOC: ED 03:55
DX: F10.920 Alcohol use, unspecified with intoxication, uncomplicated (principal); R11.2 Nausea with vomiting, unspecified; Z79.899 Other long term (current) drug therapy
CPT/HCPCS: 36415; 80053; 80307; 85025; 96360; 96374; 99284; J2405; G0480

== ENCOUNTER 2018-10-02 19:58 | Emergency (ER) | payer OTHER ==
--- NOTE | 2018-10-02 20:26 | ERPHSYRPT ---
- History of Present Illness Time Seen by Provider: 10/02/18 20:26 Source: patient Exam Limitations: no limitations Physician History: 53 y/o obese white female former smoker(quit 16 yrs ago) presents with cough for 2 days. pt has h/o copd. uses inhalers but no neb tx. pt using otc cough medicine. Timing/Duration: day(s) (2), worse Cough Quality/Degree: dry cough Possible Cause: occasional episodes Modifying Factors: Improves With: coughing, exertion (wor) Associated Symptoms: cough, wheezing, No fever, No chills, No chest pain/ soreness Allergies/Adverse Reactions: morphine Allergy (Verified 10/02/18 20:37) levofloxacin [From Levaquin] Adverse Reaction (Intermediate, Verified 10/02/18 20:37) PT STATES ONE TIME SHE HAD THIS MEDICINE AND HER VEINS ALL TURNED BRIGHT RED Home Medications: Albuterol Sulfate [Ventolin Hfa] 8 gm IH Q6-8HPRN PRN 02/21/18 [History] Meclizine HCl 25 mg [Antivert 25 mg] 25 mg PO BID 02/21/18 [History] Prazosin HCl [Minipress] 1 mg PO HS 02/21/18 [History] Ranitidine HCl [Zantac] 150 mg PO BID 02/21/18 [History] Ropinirole HCl [Requip] 1 mg PO HS 02/21/18 [History] Simvastatin [Zocor] 5 mg PO HS 02/21/18 [History] Aspirin EC 81 mg [Ecotrin 81 mg] 81 mg PO DAILY 02/22/18 [History] Carvedilol 6.25 mg PO BID 02/22/18 [History] Modafinil 200 mg PO DAILY 05/25/18 [History] Hx Tetanus, Diphtheria Vaccination/Date Given: Yes Hx Influenza Vaccination/Date Given: Yes Hx Pneumococcal Vaccination/Date Given: Yes - Review of Systems Constitutional: No Symptoms Eyes: No Symptoms Ears, Nose, & Throat: No Symptoms Respiratory: Cough, Wheezing, No Dyspnea, No Stridor Cardiac: Chest Pain (with cough), No Palpitations, No Syncope, No Orthopnea Abdominal/Gastrointestinal: No Symptoms, No Abdominal Pain, No Nausea, No Vomiting, No Diarrhea Genitourinary Symptoms: No Symptoms, No Dysuria, No Frequency, No Hematuria Musculoskeletal: No Symptoms Skin: No Symptoms Neurological: No Symptoms Psychological: No Symptoms Endocrine: No Symptoms Hematologic/Lymphatic: No Symptoms Immunological/Allergic: No Symptoms All Other Systems: Reviewed and Negative - Past Medical History Pertinent Past Medical History: Yes Neurological History: Seizures ENT History: Cataracts Cardiac History: High Cholesterol, Hypertension, Other Respiratory History: Asthma, Bronchitis, COPD Endocrine Medical History: Other Musculoskeletal History: Arthritis, Osteoarthritis GI Medical History: GERD History: No Pertinent History Psycho-Social History: Anxiety, Depression Female Reproductive Disorders: No Pertinent History Other Medical History: OA IN LEFT FOOT, RIGHT HAND, NECK;. LEAKING HEART VALVE - Past Surgical History Past Surgical History: Yes Neuro Surgical History: No Pertinent History Cardiac: Angioplasty, Cardiac Catheterization Respiratory: No Pertinent History Gastrointestinal: Cholecystectomy Genitourinary: No Pertinent History Musculoskeletal: No Pertinent History, Orthopedic Surgery Female Surgical History: Tubal Ligation Other Surgical History: HEART CATH, rotator cuff in oct 2015. "leaky heart valve " - Social History Smoking Status: Former smoker How long have you smoked: 6 YEARS Exposure to second hand smoke: Yes Alcohol Use: None Drug Use: none Patient Lives Alone: No Significant Family History: no pertinent family hx - Nursing Vital Signs Nursing Vital Signs: Initial Vital Signs Temperature 99.4 F 10/02/18 20:27 Pulse Rate 102 H 10/02/18 20:27 Respiratory Rate 22 10/02/18 20:27 Blood Pressure 171/101 10/02/18 20:27 O2 Sat by Pulse Oximetry 95 10/02/18 20:27 Pain Scale Pain Intensity 0 - Physical Exam General Appearance: mild distress, alert, anxiety Eye Exam: PERRL/EOMI Ears, Nose, Throat Exam: normal ENT inspection, TMs normal, pharynx normal, moist mucous membranes Neck Exam: normal inspection, non-tender, supple, full range of motion Respiratory Exam: chest tenderness (with cough only), airway intact, wheezing, No respiratory distress, No accessory muscle use, No rhonchi, No stridor Cardiovascular Exam: regular rate/rhythm, normal heart sounds, normal peripheral pulses Gastrointestinal/Abdomen Exam: soft, normal bowel sounds, No tenderness, No guarding, No rebound Pelvic Exam: not done Rectal Exam: not done Back Exam: normal inspection, normal range of motion, No CVA tenderness, No vertebral tenderness Extremity Exam: normal inspection, normal range of motion, pelvis stable Neurologic Exam: alert, oriented x 3, cooperative, 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 nml as tested Skin Exam: normal color, warm, dry Lymphatic Exam: No adenopathy SpO2 Interpretation: normal Oxygen Delivery: Room Air - Course Nursing assessment & vital signs reviewed: Yes EKG Interpreted by Me: RATE (91), Sinus Rhythm, NORMAL AXIS, NORMAL INTERVALS, NORMAL QRS (compared to ekg dated 05/25/18, nonspecific st abnormalities have resolved) Ordered Tests: Active Orders 24 hr Category Date Time Status EKG-ER Only STAT Care 10/02/18 20:46 Active CHEST 1 VIEW (PORTABLE) Stat Exams 10/02/18 20:47 Taken Peak Expiratory Flow Rate ONCE RT 10/02/18 20:56 Active Respiratory Nebulizer STAT RT 10/02/18 20:50 Completed Respiratory Therapy Assessment DAILY RT 10/02/18 20:57 Active Medication Summary Discontinued Medications Generic Name Dose Route Start Last Admin Trade Name Freq PRN Reason Stop Dose Admin Hydrocodone Bitart/Acetaminophen 15 ml 10/02/18 20:48 10/02/18 21:12 Hydrocodone-Acetamin 2.5-108/5 Ml Solution PO 10/02/18 20:49 15 ml STAT STA Administration Hydrocodone Bitart/Acetaminophen Confirm 10/02/18 21:07 Hydrocodone-Acetamin 2.5-108/5 Ml Solution Administered 10/02/18 21:08 Dose 15 ml .ROUTE .STK-MED ONE Albuterol Sulfate 2.5 mg 10/02/18 20:50 10/02/18 20:54 Proventil 2.5 Mg/3 Ml Neb IH 10/02/18 20:51 2.5 mg STAT ONE Administration Albuterol Sulfate Confirm 10/02/18 20:51 Proventil 2.5 Mg/3 Ml Neb Administered 10/02/18 20:52 Dose 2.5 mg IH .STK-MED ONE Methylprednisolone Sodium Succinate 125 mg 10/02/18 20:46 10/02/18 21:11 Solu-Medrol 125 Mg IM 10/02/18 20:47 125 mg STAT ONE Administration Methylprednisolone Sodium Succinate Confirm 10/02/18 21:07 Solu-Medrol 125 Mg Administered 10/02/18 21:08 Dose 125 mg .ROUTE .STK-MED ONE Lab/Rad Data: cxr- no acute process. - Progress Progress: improved, re-examined Air Movement: good Progress Note: 10/02/18 22:21 pt states she is breathing better. her wheezing has sig diminished. 10/02/18 22:22 pt did state she can take hydrocodone without issues. Blood Culture(s) Obtained: No Antibiotics given: No Counseled pt/family regarding: diagnosis, need for follow-up, rad results - Departure Time of Disposition: 22:22 Departure Disposition: Home Clinical Impression: Bronchitis, COPD exacerbation Condition: Stable Critical Care Time: No Referrals: LORIN WAN [Primary Care Provider] - Instructions: Chronic Obstructive Pulmonary Disease Additional Instructions: drink plenty of fluids. use your inhalers as prescribed. 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 Prescriptions: Azithromycin 250 mg [Zithromax 250 MG TABLET] 250 mg PO ZPACK #6 tablet Hydrocodone Bit/Acetaminophen [Hydrocodone-Acetaminophen Soln] 10 ml PO Q6H # 120 ml Prednisone 10 mg [Deltasone 10 mg] 10 mg PO TID #12 tablet
[2018-10-02] MEDS ORDERED: solu-MEDROL 125 MG IM ONE (20:46)
[2018-10-02] MEDS ORDERED: HYDROCODONE-ACETAMIN 2.5-108/5 ML SOLUTION PO STA (20:48)
[2018-10-02] MEDS ORDERED: PROVENTIL 2.5 MG/3 ML NEB IH ONE ×2 (20:50→20:51)
[2018-10-02] MEDS ORDERED: solu-MEDROL 125 MG ONE (21:07)
[2018-10-02] MEDS ORDERED: HYDROCODONE-ACETAMIN 2.5-108/5 ML SOLUTION ONE (21:07)
[2018-10-02 23:22] VITALS: BP 119/84; PULSE 91; O2SAT 99
--- NOTE | 2018-10-03 09:04 | XRAY ---
Indication: Cough. Comparison: February 21, 2018. Portable chest again demonstrates normal heart and lungs. Bony thorax intact again with mild degenerative changes. No new/acute findings.
== END 2018-10-02 23:21 | disposition home or self-care (01) ==
LOC: ED 19:58
DX: J44.9 Chronic obstructive pulmonary disease, unspecified (principal)
CPT/HCPCS: 71045; 93005; 94150; 94640; 96372; 99284; A9270; J2930; J7609

== ENCOUNTER 2018-11-19 12:39 | Emergency (ER) | payer OTHER ==
--- NOTE | 2018-11-19 13:06 | ERPHSYRPT ---
- History of Present Illness Time Seen by Provider: 11/19/18 13:02 Source: patient Exam Limitations: no limitations Patient Subjective Stated Complaint: low grade fever, cough productive yellow for 3 days now Triage Nursing Assessment: pt alert, resp easy, skin w/d/p. has dry cough Physician History: The patient is a 53-year-old obese female complaining of a dry cough, sore throat, and fever for 3 days. She did receive the influenza vaccination this year. It hurts when she coughs and hurts when she takes a deep breath. She vomited the first day but has not since then. Her past medical history is significant for COPD, high cholesterol, HTN, and GERD. I Timing/Duration: day(s) (3), gradual onset, worse Cough Quality/Degree: moderate, dry cough, productive cough Possible Cause: occasional episodes Modifying Factors: Improves With: albuterol inhaler, coughing Associated Symptoms: fever, cough, sore throat Allergies/Adverse Reactions: morphine Allergy (Verified 11/19/18 12:49) levofloxacin [From Levaquin] Adverse Reaction (Intermediate, Verified 11/19/18 12:49) PT STATES ONE TIME SHE HAD THIS MEDICINE AND HER VEINS ALL TURNED BRIGHT RED Home Medications: Albuterol Sulfate [Ventolin Hfa] 8 gm IH Q6-8HPRN PRN 02/21/18 [History] Meclizine HCl 25 mg [Antivert 25 mg] 25 mg PO BID 02/21/18 [History] Prazosin HCl [Minipress] 1 mg PO HS 02/21/18 [History] Ranitidine HCl [Zantac] 150 mg PO BID 02/21/18 [History] Ropinirole HCl [Requip] 1 mg PO HS 02/21/18 [History] Simvastatin [Zocor] 5 mg PO HS 02/21/18 [History] Aspirin EC 81 mg [Ecotrin 81 mg] 81 mg PO DAILY 02/22/18 [History] Carvedilol 6.25 mg PO BID 02/22/18 [History] Modafinil 200 mg PO DAILY 05/25/18 [History] Hx Tetanus, Diphtheria Vaccination/Date Given: No Hx Influenza Vaccination/Date Given: Yes Hx Pneumococcal Vaccination/Date Given: Yes Immunizations Up to Date: Yes - Review of Systems Constitutional: Fever Eyes: No Symptoms Ears, Nose, & Throat: Throat Pain Respiratory: Cough Cardiac: No Chest Pain, No Edema, No Syncope Abdominal/Gastrointestinal: No Abdominal Pain, No Nausea, No Vomiting, No Diarrhea Genitourinary Symptoms: No Dysuria Musculoskeletal: No Back Pain, No Neck Pain Skin: No Rash Neurological: No Dizziness, No Focal Weakness, No Sensory Changes Psychological: No Symptoms Endocrine: No Symptoms Hematologic/Lymphatic: No Symptoms Immunological/Allergic: No Symptoms All Other Systems: Reviewed and Negative - Past Medical History Pertinent Past Medical History: Yes Neurological History: Seizures ENT History: Cataracts Cardiac History: High Cholesterol, Hypertension, Other Respiratory History: Asthma, Bronchitis, COPD Endocrine Medical History: Diabetes Type II, Other Musculoskeletal History: Arthritis, Osteoarthritis GI Medical History: GERD History: No Pertinent History Psycho-Social History: Anxiety, Depression Female Reproductive Disorders: No Pertinent History Other Medical History: OA IN LEFT FOOT, RIGHT HAND, NECK;. LEAKING HEART VALVE - Past Surgical History Past Surgical History: Yes Neuro Surgical History: No Pertinent History Cardiac: Angioplasty, Cardiac Catheterization Respiratory: No Pertinent History Gastrointestinal: Cholecystectomy Genitourinary: No Pertinent History Musculoskeletal: No Pertinent History, Orthopedic Surgery Female Surgical History: Tubal Ligation Other Surgical History: HEART CATH, rotator cuff in oct 2015. "leaky heart valve " - Social History Smoking Status: Former smoker How long have you smoked: 6 YEARS Exposure to second hand smoke: Yes ([facility]) Alcohol Use: None Drug Use: none Patient Lives Alone: No Significant Family History: no pertinent family hx - Female History Hx Last Menstrual Period: post Hx Now: No - Nursing Vital Signs Nursing Vital Signs: Initial Vital Signs Temperature 97.8 F 11/19/18 12:42 Pulse Rate 111 H 11/19/18 12:42 Respiratory Rate 18 11/19/18 12:42 Blood Pressure 162/93 11/19/18 12:42 O2 Sat by Pulse Oximetry 100 11/19/18 12:42 Pain Scale Pain Intensity 5 - Physical Exam General Appearance: mild distress, obese Eye Exam: PERRL/EOMI, eyes nml inspection Ears, Nose, Throat Exam: normal ENT inspection, TMs normal, pharynx normal, moist mucous membranes Neck Exam: normal inspection, non-tender, supple, full range of motion Respiratory Exam: wheezing (mild) Cardiovascular Exam: regular rate/rhythm, normal heart sounds Gastrointestinal/Abdomen Exam: soft, No tenderness Pelvic Exam: not done Rectal Exam: not done Back Exam: normal inspection, No CVA tenderness, No vertebral tenderness Extremity Exam: normal inspection, normal range of motion Neurologic Exam: alert, oriented x 3, cooperative, normal mood/affect, sensation nml, No motor deficits Skin Exam: normal color, warm, dry, No rash Lymphatic Exam: No adenopathy SpO2 Interpretation: normal SpO2: 100 Oxygen Delivery: Room Air - Course EKG Interpreted by Me: RATE, Sinus Rhythm, NORMAL AXIS, NORMAL INTERVALS, NORMAL QRS, NORMAL ST-T, Other (no change comp to EKG from 10/02/18.) - Radiology Exams Chest X-ray Interpretation: Interpreted by me, Negative (neg 2V chest, comp 1V chest 10/02/18.) Ordered Tests: Active Orders 24 hr Category Date Time Status EKG-ER Only STAT Care 11/19/18 12:50 Active IV Insertion STAT Care 11/19/18 13:06 Active Pulse Oximetry (ED) STAT Care 11/19/18 13:06 Active CHEST 2 VIEWS (PA AND LAT) Stat Exams 11/19/18 13:35 Taken CBC W DIFF Stat Lab 11/19/18 12:55 Completed CMP Stat Lab 11/19/18 12:55 Completed Lactic Acid Stat Lab 11/19/18 13:13 Completed NT PRO BNP Stat Lab 11/19/18 12:55 Completed TROPONIN Q3H Lab 11/19/18 12:55 Completed TROPONIN Q3H Lab 11/19/18 16:15 Ordered TROPONIN Q3H Lab 11/19/18 19:15 Ordered TROPONIN Q3H Lab 11/19/18 22:15 Ordered TROPONIN Q3H Lab 11/20/18 01:15 Ordered Peak Expiratory Flow Rate ONCE RT 11/19/18 13:34 Completed Respiratory Nebulizer STAT RT 11/19/18 13:08 Completed Respiratory Therapy Assessment DAILY RT 11/19/18 13:33 Completed Medication Summary Discontinued Medications Generic Name Dose Route Start Last Admin Trade Name Freq PRN Reason Stop Dose Admin Albuterol/Ipratropium 3 ml 11/19/18 13:07 11/19/18 13:31 Duoneb 0.5-3 Mg/3 Ml Neb IH 11/19/18 13:08 3 ml STAT ONE Administration Albuterol/Ipratropium Confirm 11/19/18 13:27 Duoneb 0.5-3 Mg/3 Ml Neb Administered 11/19/18 13:28 Dose 3 ml IH .STK-MED ONE Sodium Chloride 1,000 mls @ 999 mls/hr 11/19/18 13:07 11/19/18 13:16 Sodium Chloride 0.9% 1000 Ml IV 11/19/18 14:07 999 mls/hr .Q1H1M STA Administration Sodium Chloride Confirm 11/19/18 13:11 Sodium Chloride 0.9% 1000 Ml Administered 11/19/18 13:12 Dose 1,000 mls @ ud .ROUTE .STK-MED ONE Methylprednisolone Sodium Succinate 125 mg 11/19/18 13:07 11/19/18 13:16 Solu-Medrol 125 Mg IV 11/19/18 13:08 125 mg STAT ONE Administration Methylprednisolone Sodium Succinate Confirm 11/19/18 13:11 Solu-Medrol 125 Mg Administered 11/19/18 13:12 Dose 125 mg .ROUTE .STK-MED ONE Lab/Rad Data: Laboratory Result Diagrams 11/19/18 12:55 11/19/18 12:55 Laboratory Results 11/19/18 11/19/18 11/19/18 Range/Units 13:13 12:55 12:55 WBC (4.0-10.5) K/mm3 RBC (4.1-5.4) M/mm3 Hgb (12.0-16.0) gm/dl Hct (35-47) % MCV (78-100) fl MCH (26-32) pg MCHC (32-36) g/dl RDW (11.5-14.0) % Plt Count (150-450) K/mm3 MPV (6-9.5) fl Gran % (36.0-66.0) % Eos # (Auto) (0-0.5) Absolute Lymphs (auto) (1.0-4.6) Absolute Monos (auto) (0.0-1.3) Lymphocytes % (24.0-44.0) % Monocytes % (0.0-12.0) % Eosinophils % (0.00-5.0) % Basophils % (0.0-0.4) % Absolute Granulocytes (1.4-6.9) Basophils # (0-0.4) Sodium (137-145) mmol/L Potassium (3.5-5.1) mmol/L Chloride (98-107) mmol/L Carbon Dioxide (22-30) mmol/L Anion Gap (5-15) MEQ/L BUN (7-17) mg/dL Creatinine (0.52-1.04) mg/dL Estimated GFR ML/MIN Glucose (74-106) mg/dL Lactic Acid 1.1 (0.4-2.0) Calcium (8.4-10.2) mg/dL Total Bilirubin (0.2-1.3) mg/dL AST (14-36) U/L ALT (0-35) U/L Alkaline Phosphatase (38-126) U/L Troponin I < 0.012 (0.000-0.034) ng/mL NT-Pro-B Natriuret Pep (0-900) pg/mL Serum Total Protein (6.3-8.2) g/dL Albumin (3.5-5.0) g/dL Influenza Type A Ag NEGATIVE (NEGATIVE) Influenza Type B Ag NEGATIVE (NEGATIVE) RSV (PCR) NEGATIVE (Negative) Group A Strep Antibody NEGATIVE (NEGATIVE) 11/19/18 11/19/18 Range/Units 12:55 12:55 WBC 7.3 (4.0-10.5) K/mm3 RBC 3.96 L (4.1-5.4) M/mm3 Hgb 12.1 (12.0-16.0) gm/dl Hct 37.5 (35-47) % MCV 94.7 (78-100) fl MCH 30.5 (26-32) pg MCHC 32.3 (32-36) g/dl RDW 13.4 (11.5-14.0) % Plt Count 223 (150-450) K/mm3 MPV 11.7 H (6-9.5) fl Gran % 55.5 (36.0-66.0) % Eos # (Auto) 0.18 (0-0.5) Absolute Lymphs (auto) 2.09 (1.0-4.6) Absolute Monos (auto) 0.94 (0.0-1.3) Lymphocytes % 28.7 (24.0-44.0) % Monocytes % 12.9 H (0.0-12.0) % Eosinophils % 2.5 (0.00-5.0) % Basophils % 0.4 (0.0-0.4) % Absolute Granulocytes 4.05 (1.4-6.9) Basophils # 0.03 (0-0.4) Sodium 139 (137-145) mmol/L Potassium 4.1 (3.5-5.1) mmol/L Chloride 106 (98-107) mmol/L Carbon Dioxide 24 (22-30) mmol/L Anion Gap 13.2 (5-15) MEQ/L BUN 8 (7-17) mg/dL Creatinine 0.63 (0.52-1.04) mg/dL Estimated GFR > 60.0 ML/MIN Glucose 119 H (74-106) mg/dL Lactic Acid (0.4-2.0) Calcium 8.8 (8.4-10.2) mg/dL Total Bilirubin 0.70 (0.2-1.3) mg/dL AST 22 (14-36) U/L ALT 18 (0-35) U/L Alkaline Phosphatase 102 (38-126) U/L Troponin I (0.000-0.034) ng/mL NT-Pro-B Natriuret Pep 268 (0-900) pg/mL Serum Total Protein 7.4 (6.3-8.2) g/dL Albumin 4.3 (3.5-5.0) g/dL Influenza Type A Ag (NEGATIVE) Influenza Type B Ag (NEGATIVE) RSV (PCR) (Negative) Group A Strep Antibody (NEGATIVE) - Progress Progress: improved Air Movement: good Progress Note: 11/19/18 14:27 The patient was given a DuoNeb breathing treatment and Solu-Medrol 125 mg and 1 L of normal saline by IV. The patient is feeling better. The patient will be given Rocephin 1 g IV. She will then be prescribed a Z-Gustavo. Blood Culture(s) Obtained: No Antibiotics given: Yes Counseled pt/family regarding: lab results, diagnosis, need for follow-up, rad results - Departure Time of Disposition: 14:28 Departure Disposition: Home Clinical Impression: Bronchitis Condition: Stable Critical Care Time: No Referrals: LORIN WAN [Primary Care Provider] - Additional Instructions: You have bronchitis. Your chest x-ray was negative for pneumonia. Your lab results were all normal. You were given a DuoNeb breathing treatment in the ER. You were also given Solu-Medrol 125 mg, Rocephin 1 g, and fluids by IV in the ER. Take Tessalon Perle 100 mg every 8 hours as needed for cough. Take azithromycin 500 mg today and 250 mg daily for days 2 through 5. Follow-up with your primary medical doctor tomorrow. Prescriptions: Benzonatate [Tessalon Perle] 100 mg PO Q8H PRN PRN #12 capsule PRN Reason: Cough Azithromycin 250 mg [Zithromax 250 MG TABLET] 250 mg PO ZPACK #6 tablet
[2018-11-19] MEDS ORDERED: Sodium Chloride 0.9% 1000 ML 1,000 ML IV STA (13:07)
[2018-11-19] MEDS ORDERED: solu-MEDROL 125 MG IV ONE (13:07)
[2018-11-19] MEDS ORDERED: DUONEB 0.5-3 MG/3 ml Neb IH ONE ×2 (13:07→13:27)
[2018-11-19] MEDS ORDERED: Sodium Chloride 0.9% 1000 ML 1,000 ML ONE (13:11)
[2018-11-19] MEDS ORDERED: solu-MEDROL 125 MG ONE (13:11)
[2018-11-19 13:32] LABS: BASOPHIL % 0.4 % (0.0-0.4); Basophil (Absolute #) 0.03 (0-0.4); Eosinophil % 2.5 % (0.00-5.0); Eosinophil (Absolute #) 0.18 (0-0.5); Granulocyte Absolute (ANC) 4.05 (1.4-6.9); Granulocytes % 55.5 % (36.0-66.0); Hematocrit 37.5 % (35-47); Hemoglobin 12.1 gm/dl (12.0-16.0); Lymphocyte (Absolute #) 2.09 (1.0-4.6); Lymphocytes % 28.7 % (24.0-44.0); Mean Cell Volume 94.7 fl (78-100); Mean Corpuscular Hgb Concent. 32.3 g/dl (32-36); Mean Platelet Volume 11.7 fl (6-9.5); Monocyte (Absolute #) 0.94 (0.0-1.3); Monocytes % 12.9 % (0.0-12.0); Platelet Count 223 K/mm3 (150-450); Red Blood Count 3.96 M/mm3 (4.1-5.4); Red Cell Distribution Width 13.4 % (11.5-14.0); White Blood Count 7.3 K/mm3 (4.0-10.5)
[2018-11-19 13:39] LABS: ALBUMIN 4.3 g/dL (3.5-5.0); ALKALINE PHOSPHATASE 102 U/L (38-126); ANION GAP 13.2 MEQ/L (5-15); BLOOD UREA NITROGEN 8 mg/dL (7-17); CHLORIDE 106 mmol/L (98-107); Calcium 8.8 mg/dL (8.4-10.2); Carbon Dioxide 24 mmol/L (22-30); Creatinine 1 0.63 mg/dL (0.52-1.04); Glucose 119 mg/dL (74-106); Mean Corpuscular Hemoglobin 30.5 pg (26-32); Potassium 4.1 mmol/L (3.5-5.1); SGOT/AST 22 U/L (14-36); SGPT/ALT 18 U/L (0-35); SODIUM 139 mmol/L (137-145); Total Protein 7.4 g/dL (6.3-8.2)
[2018-11-19 14:06] LABS: INFLUENZA A NEGATIVE (NEGATIVE); INFLUENZA B NEGATIVE (NEGATIVE); RESPIRATORY SYNCTIAL VIRUS NEGATIVE (Negative)
[2018-11-19 14:11] LABS: NT PRO BNP 268 pg/mL (0-900)
[2018-11-19] MEDS ORDERED: ROCEPHIN 1 Gm-D5w 50 ml Bag** 1 G/50 ML IVPB IV STA (14:27)
[2018-11-19] MEDS ORDERED: ROCEPHIN 1 Gm-D5w 50 ml Bag** 1 G/50 ML IVPB IV ONE (14:29)
[2018-11-19 14:54] VITALS: BP 162/99; PULSE 102; O2SAT 98
--- NOTE | 2018-11-19 20:49 | XRAY ---
Indication: Cough. Comparison: October 02, 2018. PA/lateral chest again demonstrates normal heart and lungs. Bony thorax intact again with mild degenerative changes. No new/acute findings.
== END 2018-11-19 15:13 | disposition home or self-care (01) ==
LOC: ED 12:39
DX: J40 Bronchitis, not specified as acute or chronic (principal); Z79.899 Other long term (current) drug therapy; I10 Essential (primary) hypertension
CPT/HCPCS: 36000; 36415; 71046; 80053; 83605; 83880; 84484; 85025; 87631; 87651; 93005; 94150; 94640; 96360; 96365; 96374; 99284; J0696; J2930; A9270-GY

== ENCOUNTER 2018-11-23 07:58 | Emergency (ER) | payer OTHER ==
--- NOTE | 2018-11-23 08:24 | ERPHSYRPT ---
- History of Present Illness Time Seen by Provider: 11/23/18 08:19 Source: patient Exam Limitations: no limitations Patient Subjective Stated Complaint: pt co increase cough and sob today, was seen here on tuesday and was given Rocephin and z huong, no fever, coughing up green sputum . pain with a deep breath Triage Nursing Assessment: pt alert, walked in, resp easy, chest clear, abd soft , no edema Physician History: The patient is a 53-year-old obese female complaining of no improvement of her cough since she was last seen here in this ER by me on 11/19/18. She complains that she is coughing up green sputum. She has pain in her left lower rib area with deep breathing and coughing. She is tired of the cough and wants to feel better. When she was here on 11/19/18, her influenza A, influenza B, and RSV were negative. Her chest x-ray was negative. She received 1 g Rocephin IM. She has been taking azithromycin and has 1 more day of it. She was given Solu- Medrol 125 mg in the ER that day. She was prescribed Tessalon pearls and states that it helps with her cough. She has continued to work daily. She has not seen her local family doctor as requested because she has been working. She is scheduled to work today at noon. Her past medical history is significant for COPD, GERD, high cholesterol, and HTN. Timing/Duration: week(s) (1), constant, gradual onset Cough Quality/Degree: moderate, productive cough, sputum (green) Possible Cause: occasional episodes Modifying Factors: Improves With: coughing Associated Symptoms: cough, shortness of breath, wheezing, No fever Allergies/Adverse Reactions: morphine Allergy (Verified 11/23/18 08:10) levofloxacin [From Levaquin] Adverse Reaction (Intermediate, Verified 11/23/18 08:10) PT STATES ONE TIME SHE HAD THIS MEDICINE AND HER VEINS ALL TURNED BRIGHT RED Home Medications: Albuterol Sulfate [Ventolin Hfa] 8 gm IH Q6-8HPRN PRN 02/21/18 [History] Meclizine HCl 25 mg [Antivert 25 mg] 25 mg PO BID 02/21/18 [History] Prazosin HCl [Minipress] 1 mg PO HS 02/21/18 [History] Ranitidine HCl [Zantac] 150 mg PO BID 02/21/18 [History] Ropinirole HCl [Requip] 1 mg PO HS 02/21/18 [History] Simvastatin [Zocor] 5 mg PO HS 02/21/18 [History] Aspirin EC 81 mg [Ecotrin 81 mg] 81 mg PO DAILY 02/22/18 [History] Carvedilol 6.25 mg PO BID 02/22/18 [History] Modafinil 200 mg PO DAILY 05/25/18 [History] Hx Tetanus, Diphtheria Vaccination/Date Given: No Hx Influenza Vaccination/Date Given: Yes Hx Pneumococcal Vaccination/Date Given: Yes Immunizations Up to Date: Yes - Review of Systems Constitutional: No Fever, No Chills Eyes: No Symptoms Ears, Nose, & Throat: No Symptoms Respiratory: Cough, Wheezing Cardiac: No Chest Pain, No Edema, No Syncope Abdominal/Gastrointestinal: No Abdominal Pain, No Nausea, No Vomiting, No Diarrhea Genitourinary Symptoms: No Dysuria Musculoskeletal: No Back Pain, No Neck Pain Skin: No Rash Neurological: No Dizziness, No Focal Weakness, No Sensory Changes Psychological: No Symptoms Endocrine: No Symptoms Hematologic/Lymphatic: No Symptoms Immunological/Allergic: No Symptoms All Other Systems: Reviewed and Negative - Past Medical History Pertinent Past Medical History: Yes Neurological History: Seizures ENT History: Cataracts Cardiac History: High Cholesterol, Hypertension, Other Respiratory History: Asthma, Bronchitis, COPD Endocrine Medical History: Diabetes Type II, Other Musculoskeletal History: Arthritis, Osteoarthritis GI Medical History: GERD History: No Pertinent History Psycho-Social History: Anxiety, Depression Female Reproductive Disorders: No Pertinent History Other Medical History: OA IN LEFT FOOT, RIGHT HAND, NECK;. LEAKING HEART VALVE - Past Surgical History Past Surgical History: Yes Neuro Surgical History: No Pertinent History Cardiac: Angioplasty, Cardiac Catheterization Respiratory: No Pertinent History Gastrointestinal: Cholecystectomy Genitourinary: No Pertinent History Musculoskeletal: No Pertinent History, Orthopedic Surgery Female Surgical History: Tubal Ligation Other Surgical History: HEART CATH, rotator cuff in oct 2015. "leaky heart valve " - Social History Smoking Status: Former smoker How long have you smoked: 6 YEARS Exposure to second hand smoke: Yes ([facility]) Alcohol Use: None Drug Use: none Patient Lives Alone: No Significant Family History: no pertinent family hx - Female History Hx Last Menstrual Period: post Hx Now: No - Nursing Vital Signs Nursing Vital Signs: Initial Vital Signs Temperature 97.2 F 11/23/18 08:04 Pulse Rate 75 11/23/18 08:04 Respiratory Rate 20 11/23/18 08:04 Blood Pressure 139/99 11/23/18 08:04 O2 Sat by Pulse Oximetry 99 11/23/18 08:04 Pain Scale Pain Intensity 3 - Physical Exam General Appearance: mild distress, obese Eye Exam: PERRL/EOMI, eyes nml inspection Ears, Nose, Throat Exam: normal ENT inspection, TMs normal, pharynx normal, moist mucous membranes Neck Exam: normal inspection, non-tender, supple, full range of motion Respiratory Exam: rhonchi, wheezing (mild) Cardiovascular Exam: regular rate/rhythm, normal heart sounds Gastrointestinal/Abdomen Exam: soft, No tenderness Pelvic Exam: not done Rectal Exam: not done Back Exam: normal inspection, No CVA tenderness, No vertebral tenderness Extremity Exam: normal inspection, normal range of motion Neurologic Exam: alert, oriented x 3, cooperative, normal mood/affect, sensation nml, No motor deficits Skin Exam: normal color, warm, dry, No rash Lymphatic Exam: No adenopathy SpO2 Interpretation: normal SpO2: 100 Oxygen Delivery: Room Air - Course EKG Interpreted by Me: RATE, Sinus Rhythm, NORMAL AXIS, NORMAL INTERVALS, NORMAL QRS, NORMAL ST-T, Other (no change comp to EKG from 11/19/18.) - Radiology Exams Chest X-ray Interpretation: Reviewed by me, Teleradiologist Report (per Dr Lazcano), Negative, No Pneumonia, No Infiltrates Ordered Tests: Active Orders 24 hr Category Date Time Status EKG-ER Only STAT Care 11/23/18 08:25 Active IV Insertion STAT Care 11/23/18 08:25 Active Pulse Oximetry (ED) STAT Care 11/23/18 08:25 Active CHEST 2 VIEWS (PA AND LAT) Stat Exams 11/23/18 08:26 Completed BLOOD CULTURE Stat Lab 11/23/18 08:51 Received CBC W DIFF Stat Lab 11/23/18 08:51 Completed CMP Stat Lab 11/23/18 08:51 Completed D-DIMER QUANTITATION Stat Lab 11/23/18 08:51 Completed Lactic Acid Stat Lab 11/23/18 08:45 Completed NT PRO BNP Stat Lab 11/23/18 08:51 Completed TROPONIN Q3H Lab 11/23/18 08:51 Completed TROPONIN Q3H Lab 11/23/18 11:30 Ordered TROPONIN Q3H Lab 11/23/18 14:30 Ordered TROPONIN Q3H Lab 11/23/18 17:30 Ordered TROPONIN Q3H Lab 11/23/18 20:30 Ordered Peak Expiratory Flow Rate ONCE RT 11/23/18 08:37 Active Respiratory Nebulizer STAT RT 11/23/18 08:27 Completed Respiratory Therapy Assessment DAILY RT 11/23/18 08:37 Active Medication Summary Discontinued Medications Generic Name Dose Route Start Last Admin Trade Name Freq PRN Reason Stop Dose Admin Albuterol/Ipratropium 3 ml 11/23/18 08:25 11/23/18 08:34 Duoneb 0.5-3 Mg/3 Ml Neb IH 11/23/18 08:26 3 ml STAT ONE Administration Albuterol/Ipratropium Confirm 11/23/18 08:33 Duoneb 0.5-3 Mg/3 Ml Neb Administered 11/23/18 08:34 Dose 3 ml IH .STK-MED ONE Sodium Chloride 1,000 mls @ 999 mls/hr 11/23/18 08:25 11/23/18 08:45 Sodium Chloride 0.9% 1000 Ml IV 11/23/18 09:25 999 mls/hr .Q1H1M STA Administration Sodium Chloride Confirm 11/23/18 08:32 Sodium Chloride 0.9% 1000 Ml Administered 11/23/18 08:33 Dose 1,000 mls @ ud .ROUTE .STK-MED ONE Methylprednisolone Sodium Succinate 125 mg 11/23/18 08:25 11/23/18 08:45 Solu-Medrol 125 Mg IV 11/23/18 08:26 125 mg STAT ONE Administration Methylprednisolone Sodium Succinate Confirm 11/23/18 08:32 Solu-Medrol 125 Mg Administered 11/23/18 08:33 Dose 125 mg .ROUTE .STK-MED ONE Lab/Rad Data: Laboratory Result Diagrams 11/23/18 08:51 11/23/18 08:51 Laboratory Results 11/23/18 11/23/18 11/23/18 Range/Units 08:51 08:51 08:51 WBC (4.0-10.5) K/mm3 RBC (4.1-5.4) M/mm3 Hgb (12.0-16.0) gm/dl Hct (35-47) % MCV (78-100) fl MCH (26-32) pg MCHC (32-36) g/dl RDW (11.5-14.0) % Plt Count (150-450) K/mm3 MPV (6-9.5) fl Gran % (36.0-66.0) % Eos # (Auto) (0-0.5) Absolute Lymphs (auto) (1.0-4.6) Absolute Monos (auto) (0.0-1.3) Lymphocytes % (24.0-44.0) % Monocytes % (0.0-12.0) % Eosinophils % (0.00-5.0) % Basophils % (0.0-0.4) % Absolute Granulocytes (1.4-6.9) Basophils # (0-0.4) D-Dimer 456 (215-500) ng/mL Sodium (137-145) mmol/L Potassium (3.5-5.1) mmol/L Chloride (98-107) mmol/L Carbon Dioxide (22-30) mmol/L Anion Gap (5-15) MEQ/L BUN (7-17) mg/dL Creatinine (0.52-1.04) mg/dL Estimated GFR ML/MIN Glucose (74-106) mg/dL Lactic Acid (0.4-2.0) Calcium (8.4-10.2) mg/dL Total Bilirubin (0.2-1.3) mg/dL AST (14-36) U/L ALT (0-35) U/L Alkaline Phosphatase (38-126) U/L Troponin I < 0.012 (0.000-0.034) ng/mL NT-Pro-B Natriuret Pep (0-900) pg/mL Serum Total Protein (6.3-8.2) g/dL Albumin (3.5-5.0) g/dL Influenza Type A Ag NEGATIVE (NEGATIVE) Influenza Type B Ag NEGATIVE (NEGATIVE) RSV (PCR) NEGATIVE (Negative) 11/23/18 11/23/18 11/23/18 Range/Units 08:51 08:51 08:45 WBC 7.8 (4.0-10.5) K/mm3 RBC 3.78 L (4.1-5.4) M/mm3 Hgb 11.6 L (12.0-16.0) gm/dl Hct 35.2 (35-47) % MCV 93.1 (78-100) fl MCH 30.6 (26-32) pg MCHC 33.0 (32-36) g/dl RDW 12.9 (11.5-14.0) % Plt Count 208 (150-450) K/mm3 MPV 11.2 H (6-9.5) fl Gran % 57.6 (36.0-66.0) % Eos # (Auto) 0.35 (0-0.5) Absolute Lymphs (auto) 2.29 (1.0-4.6) Absolute Monos (auto) 0.63 (0.0-1.3) Lymphocytes % 29.5 (24.0-44.0) % Monocytes % 8.1 (0.0-12.0) % Eosinophils % 4.5 (0.00-5.0) % Basophils % 0.3 (0.0-0.4) % Absolute Granulocytes 4.47 (1.4-6.9) Basophils # 0.02 (0-0.4) D-Dimer (215-500) ng/mL Sodium 138 (137-145) mmol/L Potassium 4.5 (3.5-5.1) mmol/L Chloride 103 (98-107) mmol/L Carbon Dioxide 28 (22-30) mmol/L Anion Gap 11.1 (5-15) MEQ/L BUN 13 (7-17) mg/dL Creatinine 0.72 (0.52-1.04) mg/dL Estimated GFR > 60.0 ML/MIN Glucose 107 H (74-106) mg/dL Lactic Acid 1.0 (0.4-2.0) Calcium 8.9 (8.4-10.2) mg/dL Total Bilirubin 0.50 (0.2-1.3) mg/dL AST 14 (14-36) U/L ALT 16 (0-35) U/L Alkaline Phosphatase 79 (38-126) U/L Troponin I (0.000-0.034) ng/mL NT-Pro-B Natriuret Pep 332 (0-900) pg/mL Serum Total Protein 6.6 (6.3-8.2) g/dL Albumin 3.6 (3.5-5.0) g/dL Influenza Type A Ag (NEGATIVE) Influenza Type B Ag (NEGATIVE) RSV (PCR) (Negative) - Progress Progress: improved Air Movement: good Blood Culture(s) Obtained: Yes Antibiotics given: No Counseled pt/family regarding: lab results, diagnosis, need for follow-up, rad results - Departure Time of Disposition: 11:16 Departure Disposition: Home Clinical Impression: Bronchitis Condition: Stable Critical Care Time: No Referrals: LORIN WAN [Primary Care Provider] - Additional Instructions: Once again you still have viral bronchitis. Continue with the last day of azithromycin as prescribed. Take Tessalon 100 mg every 8 hours as needed for cough. You were given a breathing treatment in the ER. You were given fluids and Solu-Medrol 125 mg by IV in the ER. Take prednisone 60 mg daily for 5 days. You have 2 days off from work. Follow-up with your primary medical doctor tomorrow. 6. No bony [place] Prescriptions: Benzonatate [Tessalon [place]] 100 mg PO Q8H PRN PRN #12 capsule PRN Reason: Cough Prednisone 20 mg [Deltasone 20 mg] 3 tab PO DAILY #15 tablet
[2018-11-23] MEDS ORDERED: solu-MEDROL 125 MG IV ONE (08:25)
[2018-11-23] MEDS ORDERED: Sodium Chloride 0.9% 1000 ML 1,000 ML IV STA (08:25)
[2018-11-23] MEDS ORDERED: DUONEB 0.5-3 MG/3 ml Neb IH ONE ×2 (08:25→08:33)
[2018-11-23] MEDS ORDERED: Sodium Chloride 0.9% 1000 ML 1,000 ML ONE (08:32)
[2018-11-23] MEDS ORDERED: solu-MEDROL 125 MG ONE (08:32)
[2018-11-23 08:56] LABS: BASOPHIL % 0.3 % (0.0-0.4); Basophil (Absolute #) 0.02 (0-0.4); Eosinophil % 4.5 % (0.00-5.0); Eosinophil (Absolute #) 0.35 (0-0.5); Granulocyte Absolute (ANC) 4.47 (1.4-6.9); Granulocytes % 57.6 % (36.0-66.0); Hematocrit 35.2 % (35-47); Hemoglobin 11.6 gm/dl (12.0-16.0); Lymphocyte (Absolute #) 2.29 (1.0-4.6); Lymphocytes % 29.5 % (24.0-44.0); Mean Cell Volume 93.1 fl (78-100); Mean Platelet Volume 11.2 fl (6-9.5); Monocyte (Absolute #) 0.63 (0.0-1.3); Monocytes % 8.1 % (0.0-12.0); Platelet Count 208 K/mm3 (150-450); Red Blood Count 3.78 M/mm3 (4.1-5.4); Red Cell Distribution Width 12.9 % (11.5-14.0); White Blood Count 7.8 K/mm3 (4.0-10.5)
[2018-11-23 09:01] LABS: Mean Corpuscular Hemoglobin 30.6 pg (26-32)
--- NOTE | 2018-11-23 09:28 | XRAY ---
Indication: Cough and short of breath 2 weeks. Comparison: November 19, 2018. PA/lateral chest again demonstrates normal heart and lungs. Bony thorax intact again with mild degenerative changes. No new/acute findings.
[2018-11-23 09:32] LABS: INFLUENZA A NEGATIVE (NEGATIVE); INFLUENZA B NEGATIVE (NEGATIVE); RESPIRATORY SYNCTIAL VIRUS NEGATIVE (Negative)
[2018-11-23 10:15] LABS: ALBUMIN 3.6 g/dL (3.5-5.0); ALKALINE PHOSPHATASE 79 U/L (38-126); ANION GAP 11.1 MEQ/L (5-15); BLOOD UREA NITROGEN 13 mg/dL (7-17); CHLORIDE 103 mmol/L (98-107); Calcium 8.9 mg/dL (8.4-10.2); Carbon Dioxide 28 mmol/L (22-30); Creatinine 1 0.72 mg/dL (0.52-1.04); Glucose 107 mg/dL (74-106); Potassium 4.5 mmol/L (3.5-5.1); SGOT/AST 14 U/L (14-36); SGPT/ALT 16 U/L (0-35); SODIUM 138 mmol/L (137-145); Total Protein 6.6 g/dL (6.3-8.2)
[2018-11-23 10:31] LABS: NT PRO BNP 332 pg/mL (0-900)
[2018-11-23 11:30] VITALS: BP 164/94; PULSE 70; O2SAT 98
== END 2018-11-23 11:30 | disposition home or self-care (01) ==
LOC: ED 07:58
DX: J40 Bronchitis, not specified as acute or chronic (principal); Z79.899 Other long term (current) drug therapy; I10 Essential (primary) hypertension
CPT/HCPCS: 36000; 36415; 71046; 80053; 83605; 83880; 84484; 85025; 85379; 87040; 87631; 93005; 94150; 94640; 96360; 96374; 99284; J2930; A9270-GY

== ENCOUNTER 2019-01-19 20:01 | Emergency (ER) | payer SELFPAY ==
[2019-01-19] MEDS ORDERED: Augmentin 875-125 Tablet PO ONE (20:19)
[2019-01-19] MEDS ORDERED: TORAdol 30 mg Injection IM ONE (20:19)
[2019-01-19] MEDS ORDERED: Augmentin 875-125 Tablet ONE (20:24)
[2019-01-19] MEDS ORDERED: TORAdol 30 mg Injection ONE (20:24)
--- NOTE | 2019-01-19 21:23 | ERPHSYRPT ---
- History of Present Illness Source: patient Exam Limitations: no limitations Patient Subjective Stated Complaint: pt is alert and oriented. pt is ambulatory with a steady gait. pt comes in with c/o dental abscess. pt has moderate swelling to left side of her jaw and cheek. pt has a blackened broken tooth in the back of the left side of her mouth. no drainage noted. no warmth or redness noted. pt denies going to the dentist. Triage Nursing Assessment: see above Physician History: Pt is 53 y/o female that had a tooth jojo for a couple of days. Today she woke up with swelling in her L face, including the lip. Pt states, her pain from the tooth is marked. No F/C/S. Timing/Duration: gradual onset Severity: moderate ENT Location: mouth Modifying Factors: Improves With: nothing Associated Symptoms: other (Tooth ache) Allergies/Adverse Reactions: morphine Allergy (Verified 11/23/18 08:10) levofloxacin [From Levaquin] Adverse Reaction (Intermediate, Verified 11/23/18 08:10) PT STATES ONE TIME SHE HAD THIS MEDICINE AND HER VEINS ALL TURNED BRIGHT RED Home Medications: Albuterol Sulfate [Ventolin Hfa] 8 gm IH Q6-8HPRN PRN 02/21/18 [History] Meclizine HCl 25 mg [Antivert 25 mg] 25 mg PO BID 02/21/18 [History] Prazosin HCl [Minipress] 1 mg PO HS 02/21/18 [History] Ranitidine HCl [Zantac] 150 mg PO BID 02/21/18 [History] Ropinirole HCl [Requip] 1 mg PO HS 02/21/18 [History] Simvastatin [Zocor] 5 mg PO HS 02/21/18 [History] Aspirin EC 81 mg [Ecotrin 81 mg] 81 mg PO DAILY 02/22/18 [History] Carvedilol 6.25 mg PO BID 02/22/18 [History] Modafinil 200 mg PO DAILY 05/25/18 [History] Hx Tetanus, Diphtheria Vaccination/Date Given: Yes Hx Influenza Vaccination/Date Given: Yes Hx Pneumococcal Vaccination/Date Given: Yes Immunizations Up to Date: Yes - Review of Systems Constitutional: No Fever, No Chills Eyes: No Symptoms Ears, Nose, & Throat: No Symptoms, Other (severe rooth jojo, on the lower jaw on the left) Respiratory: No Cough, No Dyspnea Cardiac: No Chest Pain, No Edema, No Syncope Abdominal/Gastrointestinal: No Abdominal Pain, No Nausea, No Vomiting, No Diarrhea - Past Medical History Pertinent Past Medical History: Yes Neurological History: Seizures ENT History: Cataracts Cardiac History: High Cholesterol, Hypertension, Other Respiratory History: Asthma, Bronchitis, COPD Endocrine Medical History: Diabetes Type II, Other Musculoskeletal History: Arthritis, Osteoarthritis GI Medical History: GERD History: No Pertinent History Psycho-Social History: Anxiety, Depression Female Reproductive Disorders: No Pertinent History Other Medical History: OA IN LEFT FOOT, RIGHT HAND, NECK;. LEAKING HEART VALVE - Past Surgical History Past Surgical History: Yes Neuro Surgical History: No Pertinent History Cardiac: Angioplasty, Cardiac Catheterization Respiratory: No Pertinent History Gastrointestinal: Cholecystectomy Genitourinary: No Pertinent History Musculoskeletal: No Pertinent History, Orthopedic Surgery Female Surgical History: Tubal Ligation Other Surgical History: HEART CATH, rotator cuff in oct 2015. "leaky heart valve " - Social History Smoking Status: Former smoker How long have you smoked: 6 YEARS Exposure to second hand smoke: Yes ([facility]) Alcohol Use: None Drug Use: none Patient Lives Alone: No Significant Family History: no pertinent family hx - Female History Hx Now: No - Nursing Vital Signs Nursing Vital Signs: Initial Vital Signs Temperature 98.4 F 01/19/19 20:10 Pulse Rate 76 01/19/19 20:10 Respiratory Rate 18 01/19/19 20:10 Blood Pressure 168/105 01/19/19 20:10 O2 Sat by Pulse Oximetry 100 01/19/19 20:10 Pain Scale Pain Intensity 7 - Physical Exam General Appearance: mild distress Eye Exam: bilateral eye: normal inspection, PERRL, EOMI Ear Exam: bilateral ear: auricle normal Nasal Exam: normal inspection Throat Exam: mandibular swelling (and discomfort with palpation. Lymphadenopathy in submandible on left.) Neck Exam: non-tender, supple Cardiovascular/Respiratory Exam: normal breath sounds, regular rate/rhythm SpO2: 98 - Course Nursing assessment & vital signs reviewed: Yes - CT Exams Maxillofacial Bones CT Interpretation: Tele-radiologist Report (lymphadenopathy and tissue edema.) Ordered Tests: Active Orders 24 hr Category Date Time Status FACIAL BONES WO CONTRAST [CT] Stat Exams 01/19/19 20:23 Taken Medication Summary Discontinued Medications Generic Name Dose Route Start Last Admin Trade Name Curry PRN Reason Stop Dose Admin Amoxicillin/Clavulanate Potassium 875 mg 01/19/19 20:19 01/19/19 20:28 Augmentin 875-125 Tablet PO 01/19/19 20:20 875 mg STAT ONE Administration Amoxicillin/Clavulanate Potassium Confirm 01/19/19 20:24 Augmentin 875-125 Tablet Administered 01/19/19 20:25 Dose 875 mg .ROUTE .STK-MED ONE Ketorolac Tromethamine 30 mg 01/19/19 20:19 01/19/19 20:28 Toradol 30 Mg Injection IM 01/19/19 20:20 30 mg STAT ONE Administration Ketorolac Tromethamine Confirm 01/19/19 20:24 Toradol 30 Mg Injection Administered 01/19/19 20:25 Dose 30 mg .ROUTE .STK-MED ONE - Progress Progress: unchanged Progress Note: 01/19/19 21:21 Pt was given Augmentin in the ED and Toradol IM for pain. CT did not show any abscess, but pt does have lymphadenopathy and edema of the tissue on the left mandible. She is encouraged to f/u with a dentist. Augmentin will be prescribed. Will see patient in: office Counseled pt/family regarding: need for follow-up (Pt should f/u with a dentist. ) - Departure Time of Disposition: 21:23 Departure Disposition: Home Clinical Impression: Toothache Condition: Stable Critical Care Time: No Referrals: LORIN WAN [Primary Care Provider] - Prescriptions: Amox Tr/Potass Clav. 875 mg [Augmentin 875-125 Tablet] 1 each PO BID 10 Days #20 tablet
[2019-01-19 21:28] VITALS: BP 166/103; PULSE 76; O2SAT 99
--- NOTE | 2019-01-20 09:08 | XRAY ---
Indication: Left dental abscess. Multiple contiguous axial images obtained through the facial bones. Sagittal and coronal reformatted images obtained. Comparison: None Mild left mandible soft tissue swelling. No walled off fluid collection, suspicious air bubbles, or pathologic lymphadenopathy. There are small centimeters/subcentimeter benign cervical and submandibular nodes bilaterally. Parotid and submandibular glands are bilaterally symmetric. No acute fracture, suspicious bone lesions, or osseous destructive process. Supra and infraglottic airway are widely patent. Visualized cervical spine intact with moderate C3-C6 degenerative changes. Base of the brain unremarkable. Impression: 1. Mild left mandible nonspecific soft tissue swelling. No underlying walled off fluid collection or pathologic lymphadenopathy. 2. Negative acute fracture or suspicious bony lesions. 3. Incidental multilevel cervical degenerative changes. CTDI 59.47
== END 2019-01-19 21:29 | disposition home or self-care (01) ==
LOC: ED 20:01
DX: K08.89 Other specified disorders of teeth and supporting structures (principal)
CPT/HCPCS: 70486; 96372; 99284; J1885; A9270-GY

== ENCOUNTER 2019-02-08 07:43 | Emergency (ER) | payer MEDICAID ==
[2019-02-08] MEDS ORDERED: NORCO 5/325 MG PO ONE (08:08)
[2019-02-08] MEDS ORDERED: NORCO 5/325 MG ONE (08:11)
--- NOTE | 2019-02-08 08:14 | ERPHSYRPT ---
- History of Present Illness Time Seen by Provider: 02/08/19 08:03 Source: patient Exam Limitations: no limitations Patient Subjective Stated Complaint: pt states this morning in her kitchen her foot went through floor vent and she twisted her left ankle Triage Nursing Assessment: pt arrived per wc, alert, resp easy, skin w/d/p. has small abrasions to back of heel, no swelling or bruising noted,states pain to heel with weight bearing Physician History: 53-year-old white female with history of seizures, cataracts, hyperlipidemia, high blood pressure, asthma, bronchitis Patient arrives with complaint of pain in her left ankle and foot symptoms since this morning at around 7 or 7:30. Patient states she was walking around her foot went through the floor she has pain in her plantar surface of her foot and lateral and posterior ankle. She denies any other complaints. Past medical history includes seizures, cataract, hyperlipidemia, high blood pressure, asthma, bronchitis, COPD, diabetes type 2, arthritis, osteoarthritis, GERD, anxiety, depression, osteoarthritis left foot right hand and neck, leaky heart valve. Past surgical history includes cardiac catheter, cholecystectomy, orthopedic surgery, tubal, rotator cuff surgery, heart catheter Social history occasional alcohol Method of Injury: other (left foot went through floor this am) Occurred: just prior to arrival (7 AM) Quality: constant, aching Severity of Pain-Max: moderate Severity of Pain-Current: moderate Lower Extremities Pain: foot: left, ankle: left Modifying Factors: Improves With: movement Associated Symptoms: other (pain with walking) Allergies/Adverse Reactions: morphine Allergy (Verified 02/08/19 07:55) levofloxacin [From Levaquin] Adverse Reaction (Intermediate, Verified 02/08/19 07:55) PT STATES ONE TIME SHE HAD THIS MEDICINE AND HER VEINS ALL TURNED BRIGHT RED Home Medications: Albuterol Sulfate [Ventolin Hfa] 8 gm IH Q6-8HPRN PRN 02/21/18 [History] Meclizine HCl 25 mg [Antivert 25 mg] 25 mg PO BID 02/21/18 [History] Prazosin HCl [Minipress] 1 mg PO HS 02/21/18 [History] Ranitidine HCl [Zantac] 150 mg PO BID 02/21/18 [History] Ropinirole HCl [Requip] 1 mg PO HS 02/21/18 [History] Simvastatin [Zocor] 5 mg PO HS 02/21/18 [History] Aspirin EC 81 mg [Ecotrin 81 mg] 81 mg PO DAILY 02/22/18 [History] Carvedilol 6.25 mg PO BID 02/22/18 [History] Hx Tetanus, Diphtheria Vaccination/Date Given: No Hx Influenza Vaccination/Date Given: Yes Hx Pneumococcal Vaccination/Date Given: No Immunizations Up to Date: Yes - Review of Systems Constitutional: No Fever, No Chills Eyes: No Symptoms Ears, Nose, & Throat: No Symptoms Respiratory: No Cough, No Dyspnea Cardiac: No Chest Pain, No Edema, No Syncope Abdominal/Gastrointestinal: No Abdominal Pain, No Nausea, No Vomiting, No Diarrhea Genitourinary Symptoms: No No Symptoms, No Dysuria Musculoskeletal: Other (left foot and ankle pain) Skin: No Rash Neurological: No Dizziness, No Focal Weakness, No Sensory Changes Psychological: No Symptoms Endocrine: No Symptoms All Other Systems: Reviewed and Negative - Past Medical History Pertinent Past Medical History: Yes Neurological History: Seizures ENT History: Cataracts Cardiac History: High Cholesterol, Hypertension, Other Respiratory History: Asthma, Bronchitis, COPD Endocrine Medical History: Diabetes Type II, Other Musculoskeletal History: Arthritis, Osteoarthritis GI Medical History: GERD History: No Pertinent History Psycho-Social History: Anxiety, Depression Female Reproductive Disorders: No Pertinent History Other Medical History: OA IN LEFT FOOT, RIGHT HAND, NECK;. LEAKING HEART VALVE - Past Surgical History Past Surgical History: Yes Neuro Surgical History: No Pertinent History Cardiac: Angioplasty, Cardiac Catheterization Respiratory: No Pertinent History Gastrointestinal: Cholecystectomy Genitourinary: No Pertinent History Musculoskeletal: No Pertinent History, Orthopedic Surgery Female Surgical History: Tubal Ligation Other Surgical History: HEART CATH, rotator cuff in oct 2015. "leaky heart valve " - Social History Smoking Status: Never smoker How long have you smoked: 6 YEARS Exposure to second hand smoke: Yes Alcohol Use: None Drug Use: none Patient Lives Alone: No Significant Family History: no pertinent family hx - Female History Hx Last Menstrual Period: irregular Hx Now: No - Nursing Vital Signs Nursing Vital Signs: Initial Vital Signs Temperature 97.0 F 02/08/19 07:48 Pulse Rate 74 02/08/19 07:48 Respiratory Rate 18 02/08/19 07:48 Blood Pressure 132/64 02/08/19 07:48 O2 Sat by Pulse Oximetry 100 02/08/19 07:48 Pain Scale Pain Intensity 6 - Physical Exam General Appearance: mild distress, alert Eyes, Ears, Nose, Throat Exam: moist mucous membranes Neck Exam: non-tender, supple Cardiovascular/Respiratory Exam: chest non-tender, normal breath sounds, regular rate/rhythm, no respiratory distress Gastrointestinal/Abdominal Exam: non-tender, guarding Back Exam: normal inspection, No vertebral tenderness Hips Exam: bilateral: non-tender, normal inspection, normal range of motion, no evidence of injury Legs Exam: bilateral leg: non-tender, normal inspection, normal range of motion , no evidence of injury Knees Exam: bilateral knee: non-tender, normal inspection, normal range of motion, no evidence of injury Ankle Exam: right ankle: non-tender, normal inspection, normal range of motion, no evidence of injury, left ankle: bone tenderness (left ankle tender laterally and posteriorly with movement and palpation) Foot Exam: right foot: non-tender, normal inspection, normal range of motion, no evidence of injury, left foot: other (Left wharf tender helper plantar surface underlying calcaneus and laterally overlying calcaneus) DTR - Lower Extremities Exam: ankle (R): 2+, ankle (L): 2+ Neuro/Tendon Exam: normal sensation, normal motor functions Mental Status Exam: alert, oriented x 3, cooperative Skin Exam: normal color, warm, dry, other (small abrasion posterior surface left foot) SpO2 Interpretation: normal (100%) SpO2: 100 O2 Delivery: Room Air - Course Nursing assessment & vital signs reviewed: Yes - Radiology Exams Left Foot X-ray Interpretation: Discussed w/ radiologist (x-ray left foot: Moderate sized plantar heel spur. No other bony, articular, or soft tissue abnormalities.) Left Ankle X-ray Interpretation: Discussed w/ radiologist (x-ray left ankle: Lateral soft tissue swelling and moderate sized plantar heel spur. No other bony, articular , or soft tissue abnormalities.) Ordered Tests: Active Orders 24 hr Category Date Time Status ANKLE (3 VIEWS) Stat Exams 02/08/19 08:24 Completed FOOT (MINIMUM 3 VIEWS) Stat Exams 02/08/19 08:08 Completed Medication Summary Discontinued Medications Generic Name Dose Route Start Last Admin Trade Name Freq PRN Reason Stop Dose Admin Hydrocodone Bitart/Acetaminophen 1 tab 02/08/19 08:08 02/08/19 08:12 Jetmore 5/325 Mg PO 02/08/19 08:09 1 tab STAT ONE Administration Hydrocodone Bitart/Acetaminophen Confirm 02/08/19 08:11 Jetmore 5/325 Mg Administered 02/08/19 08:12 Dose 1 tab .ROUTE .STK-MED ONE - Progress Progress: improved Progress Note: 02/08/19 08:39 53-year-old white female with history of seizures, cataracts, hyperlipidemia, high blood pressure, asthma, bronchitis, COPD, diabetes type 2, arthritis, osteoarthritis, GERD Patient arrives with complaint of pain in the plantar surface of her left foot pain on her lateral and posterior ankle, after falling through the floor on this morning. Patient has a small abrasion to her left foot posterior surface overlying the calcaneus. Patient with the tenderness posteriorly and laterally on the ankle. Pain on the posterior surface of the foot overlying Cutaneous and lateral foot overlying calcaneus. X-ray of the left ankle shows lateral soft tissue swelling and moderate size plantar heel spur. X-ray of the left foot shows moderate size plantar heel spur no other bony, articular or soft tissue abnormalities. Patient given Jetmore in the emergency room for pain nurse will clean the plantar abrasion and apply Aircast Will apply bacitracin to abrasion. Patient's with plantar flexion squeezing calf tenderness lateral and posterior ankle with palpation. Tenderness lateral foot with palpation abrasion left foot. Impression left ankle sprain. 2. Abrasion left foot. Plan clean area and apply bacitracin to posterior surface left foot. Also apply Aircast. Small amount of Jetmore for pain at home.. 02/08/19 08:46 02/08/19 08:53 the patient's tetanus is up to date. - Departure Time of Disposition: 08:47 Departure Disposition: Home Clinical Impression: Abrasion, left foot, initial encounter, Left foot pain Left ankle sprain Qualifiers: Encounter type: initial encounter Involved ligament of ankle: unspecified ligament Qualified Code(s): S93.402A - Sprain of unspecified ligament of left ankle, initial encounter Condition: Fair Critical Care Time: No Referrals: LORIN WAN [Primary Care Provider] - Additional Instructions: Ice and elevate left foot and ankle 24-48 hours. Jetmore as prescribed. Bacitracin to abrasion until healed. Follow-up with your family doctor if symptoms are worse, no better in 48 hours, or persist longer than one week. Return for acute distress or for severe symptoms. Prescriptions: Hydrocodone/APAP 5-325 Tab^^^ [Jetmore 5-325 Tablet^^^] 1 tab PO Q6HPRN PRN #10 tablet MDD 6 PRN Reason: left foot and ankle pain
[2019-02-08 08:37] VITALS: BP 115/72
--- NOTE | 2019-02-08 08:37 | XRAY ---
Indication: Pain following injury. Comparison: None 3 views of the left ankle demonstrates lateral soft tissue swelling and moderate sized plantar heel spur. No other bony, articular, or soft tissue abnormalities.
--- NOTE | 2019-02-08 08:38 | XRAY ---
Indication: Pain following injury. Comparison: None 3 nonweightbearing views of the left foot demonstrates moderate sized plantar heel spur. No other bony, articular, or soft tissue abnormalities.
[2019-02-08 08:39] VITALS: O2SAT 100
[2019-02-08 08:53] VITALS: PULSE 71
== END 2019-02-08 09:03 | disposition home or self-care (01) ==
LOC: ED 07:43
DX: S90.812A Abrasion, left foot, initial encounter (principal); S93.402A Sprain of unspecified ligament of left ankle, initial encounter; X50.1XXA Overexertion from prolonged static or awkward postures, initial encounter; G40.909 Epilepsy, unspecified, not intractable, without status epilepticus; E78.5 Hyperlipidemia, unspecified; I10 Essential (primary) hypertension; J45.909 Unspecified asthma, uncomplicated; E11.9 Type 2 diabetes mellitus without complications; M19.90 Unspecified osteoarthritis, unspecified site; E78.00 Pure hypercholesterolemia, unspecified; K21.9 Gastro-esophageal reflux disease without esophagitis; F41.8 Other specified anxiety disorders; I38 Endocarditis, valve unspecified; Z79.899 Other long term (current) drug therapy; M79.672 Pain in left foot
CPT/HCPCS: 73610; 73630; 99283; A9270-GY

== ENCOUNTER 2019-06-18 21:31 | Emergency (ER) | payer SELFPAY ==
[2019-06-18 21:46] VITALS: O2SAT 98
--- NOTE | 2019-06-18 21:47 | ERPHSYRPT ---
- History of Present Illness Time Seen by Provider: 06/18/19 21:47 Source: patient, family Exam Limitations: no limitations Physician History: 53 y/o obese white female presents with 3 month h/o worsening right leg pain and swelling. denies recent injury. pt able to ambulate. Timing/Duration: other (3 months) Modifying Factors: Improves With: immobilization Associated Symptoms: denies symptoms Allergies/Adverse Reactions: morphine Allergy (Verified 02/08/19 07:55) levofloxacin [From Levaquin] Adverse Reaction (Intermediate, Verified 02/08/19 07:55) PT STATES ONE TIME SHE HAD THIS MEDICINE AND HER VEINS ALL TURNED BRIGHT RED Home Medications: Albuterol Sulfate [Ventolin Hfa] 8 gm IH Q6-8HPRN PRN 02/21/18 [History] Meclizine HCl 25 mg [Antivert 25 mg] 25 mg PO BID 02/21/18 [History] Prazosin HCl [Minipress] 1 mg PO HS 02/21/18 [History] Ropinirole HCl [Requip] 1 mg PO BID 02/21/18 [History] Simvastatin [Zocor] 5 mg PO HS 02/21/18 [History] raNITIdine HCl [Zantac] 150 mg PO BID 02/21/18 [History] Aspirin EC 81 mg [Ecotrin 81 mg] 81 mg PO DAILY 02/22/18 [History] Carvedilol 6.25 mg PO BID 02/22/18 [History] Hx Tetanus, Diphtheria Vaccination/Date Given: No Hx Influenza Vaccination/Date Given: Yes Hx Pneumococcal Vaccination/Date Given: No - Review of Systems Constitutional: No Symptoms Eyes: No Symptoms Ears, Nose, & Throat: No Symptoms Respiratory: No Symptoms Cardiac: No Symptoms Abdominal/Gastrointestinal: No Symptoms Genitourinary Symptoms: No Symptoms Musculoskeletal: Myalgias Skin: No Symptoms Neurological: No Symptoms Psychological: No Symptoms Endocrine: No Symptoms Hematologic/Lymphatic: No Symptoms Immunological/Allergic: No Symptoms All Other Systems: Reviewed and Negative - Past Medical History Pertinent Past Medical History: Yes Neurological History: Seizures ENT History: Cataracts Cardiac History: High Cholesterol, Hypertension, Other Respiratory History: Asthma, Bronchitis, COPD Endocrine Medical History: Diabetes Type II, Other Musculoskeletal History: Arthritis, Osteoarthritis GI Medical History: GERD History: No Pertinent History Psycho-Social History: Anxiety, Depression Female Reproductive Disorders: No Pertinent History Other Medical History: OA IN LEFT FOOT, RIGHT HAND, NECK;. LEAKING HEART VALVE - Past Surgical History Past Surgical History: Yes Neuro Surgical History: No Pertinent History Cardiac: Angioplasty, Cardiac Catheterization Respiratory: No Pertinent History Gastrointestinal: Cholecystectomy Genitourinary: No Pertinent History Musculoskeletal: No Pertinent History, Orthopedic Surgery Female Surgical History: Tubal Ligation Other Surgical History: HEART CATH, rotator cuff in oct 2015. "leaky heart valve " - Social History Smoking Status: Never smoker How long have you smoked: 6 YEARS Exposure to second hand smoke: Yes Alcohol Use: None Drug Use: none Patient Lives Alone: No Significant Family History: no pertinent family hx - Nursing Vital Signs Nursing Vital Signs: Initial Vital Signs Temperature 97.7 F 06/18/19 21:32 Pulse Rate 96 H 06/18/19 21:32 Respiratory Rate 24 06/18/19 21:32 Blood Pressure 154/113 06/18/19 21:32 O2 Sat by Pulse Oximetry 98 06/18/19 21:32 Pain Scale Pain Intensity 10 - Physical Exam General Appearance: no apparent distress, alert, anxiety Eye Exam: PERRL/EOMI, eyes nml inspection Ears, Nose, Throat Exam: normal ENT inspection, moist mucous membranes Neck Exam: normal inspection, non-tender, supple, carotid bruit Respiratory Exam: normal breath sounds, lungs clear, airway intact, No chest tenderness, No respiratory distress Gastrointestinal/Abdomen Exam: No tenderness Pelvic Exam: not done Rectal Exam: not done Back Exam: normal inspection, normal range of motion, No CVA tenderness, No vertebral tenderness Extremity Exam: normal range of motion, pelvis stable, tenderness (and swelling right inner thigh to inner right knee) Neurologic Exam: alert, oriented x 3, cooperative, dietitian chief II-XII nml as tested, normal mood/affect, nml cerebellar function, nml station & gait Skin Exam: normal color, warm, dry Lymphatic Exam: No adenopathy SpO2 Interpretation: normal SpO2: 98 O2 Delivery: Room Air Ordered Tests: Active Orders 24 hr Category Date Time Status D-DIMER QUANTITATION Stat Lab 06/18/19 22:55 Completed Medication Summary Discontinued Medications Generic Name Dose Route Start Last Admin Trade Name Freq PRN Reason Stop Dose Admin Oxycodone/Acetaminophen 1 tab 06/18/19 22:23 06/18/19 22:30 Percocet Tablet 5/325mg PO 06/18/19 22:24 1 tab STAT STA Administration Oxycodone/Acetaminophen Confirm 06/18/19 22:27 Percocet Tablet 5/325mg Administered 06/18/19 22:28 Dose 1 tab .ROUTE .STK-MED ONE Lab/Rad Data: Laboratory Results 06/18/19 Range/Units 22:55 D-Dimer 466 (215-500) ng/mL - Progress Progress: improved, re-examined Counseled pt/family regarding: lab results, diagnosis, need for follow-up - Departure Departure Disposition: Home Clinical Impression: Right leg pain Condition: Stable Critical Care Time: No Referrals: LORIN WAN [Primary Care Provider] - Additional Instructions: follow up with your primary doctor for further management Prescriptions: Cyclobenzaprine HCl 10 mg [Cyclobenzaprine 10 MG] 10 mg PO TID #10 tablet Prednisone 5 mg [Deltasone 5 mg] 5 mg PO TID #12 tablet
[2019-06-18] MEDS ORDERED: PERCOCET TABLET 5/325MG PO STA (22:23)
[2019-06-18] MEDS ORDERED: PERCOCET TABLET 5/325MG ONE (22:27)
[2019-06-18 22:37] VITALS: BP 164/95; PULSE 85
== END 2019-06-18 23:30 | disposition home or self-care (01) ==
LOC: ED 21:31
DX: M79.604 Pain in right leg (principal); Z79.899 Other long term (current) drug therapy; I10 Essential (primary) hypertension; E78.00 Pure hypercholesterolemia, unspecified; J44.9 Chronic obstructive pulmonary disease, unspecified; J45.909 Unspecified asthma, uncomplicated; E11.9 Type 2 diabetes mellitus without complications; G40.909 Epilepsy, unspecified, not intractable, without status epilepticus; K21.9 Gastro-esophageal reflux disease without esophagitis; F41.8 Other specified anxiety disorders; M19.90 Unspecified osteoarthritis, unspecified site
CPT/HCPCS: 36415; 85379; 99283; A9270-GY

== ENCOUNTER 2019-09-16 12:48 | Emergency (ER) | payer SELFPAY ==
[2019-09-16] MEDS ORDERED: PROVENTIL Solution 2.5 MG/0.5 ML IH ONE (13:17)
[2019-09-16] MEDS ORDERED: DUONEB 0.5-3 MG/3 ml Neb IH ONE ×2 (13:17→13:44)
[2019-09-16] MEDS ORDERED: DELTASONE 20 MG PO ONE (13:18)
--- NOTE | 2019-09-16 13:20 | ERPHSYRPT ---
- History of Present Illness Time Seen by Provider: 09/16/19 13:00 Source: patient Exam Limitations: no limitations Patient Subjective Stated Complaint: pt reports cough and pain with inspiration for one week. pt reports she also vomited after dinner last evening. Triage Nursing Assessment: pt is aox3, pupils perrl, afebrile, resps easy and non labored, expiratory wheezes heard upon auscultation, radial pulses strong and equal, cap refill < 3 seconds, pt skin pink warm dry. intermittent dry cough noted. Physician History: Patient has had a cough for one week. Patient has COPD. Patient denies any recent fevers, but has wheezing. Patient has not been able to afford her Advair. Patient states the cough has gradually worsened over the past week. She has not been evaluated or treated prior to coming into the emergency department. Timing/Duration: week(s) (1) Cough Quality/Degree: moderate, dry cough Possible Cause: occasional episodes Modifying Factors: Improves With: albuterol inhaler. Worsens With: coughing, deep breath Associated Symptoms: cough, wheezing, No fever, No chills, No chest pain/ soreness, No dizziness, No earache, No facial pain, No headache, No lightheadedness, No muscle aches, No nasal congestion, No nasal drainage, No shortness of breath, No sinus infection, No sore throat International travel in last 2 weeks: No Allergies/Adverse Reactions: morphine Allergy (Verified 02/08/19 07:55) levofloxacin [From Levaquin] Adverse Reaction (Intermediate, Verified 02/08/19 07:55) PT STATES ONE TIME SHE HAD THIS MEDICINE AND HER VEINS ALL TURNED BRIGHT RED Home Medications: Albuterol Sulfate [Ventolin Hfa] 8 gm IH Q6-8HPRN PRN 02/21/18 [History] Meclizine HCl 25 mg [Antivert 25 mg] 25 mg PO BID 02/21/18 [History] Prazosin HCl [Minipress] 1 mg PO HS 02/21/18 [History] Ropinirole HCl [Requip] 1 mg PO BID 02/21/18 [History] Simvastatin [Zocor] 5 mg PO HS 02/21/18 [History] raNITIdine HCl [Zantac] 150 mg PO BID 02/21/18 [History] Aspirin EC 81 mg [Ecotrin 81 mg] 81 mg PO DAILY 02/22/18 [History] Carvedilol 6.25 mg PO BID 02/22/18 [History] Hx Tetanus, Diphtheria Vaccination/Date Given: Yes Hx Influenza Vaccination/Date Given: No Hx Pneumococcal Vaccination/Date Given: No Immunizations Up to Date: Yes - Review of Systems Constitutional: No Fever, No Chills, No Fatigue Eyes: No Eye Pain, No Vision Changes Ears, Nose, & Throat: No Nose Congestion, No Mouth Pain, No Throat Pain, No Throat Swelling, No Painful Swallowing, No Stridor Respiratory: Cough, Wheezing, No Dyspnea on Exertion (JULIEN) Cardiac: No Chest Pain, No Palpitations, No Syncope Abdominal/Gastrointestinal: No Abdominal Pain, No Nausea, No Vomiting, No Hematemesis, No Hematochezia, No Melena Genitourinary Symptoms: No Dysuria, No Frequency, No Hematuria, No Flank Pain Musculoskeletal: No Arthralgias, No Back Pain, No Neck Pain, No Joint Swelling Neurological: No Dizziness, No Focal Weakness, No Lethargy, No Parasthesia Psychological: No Anxiety Endocrine: No Polydipsia, No Excessive Sweating Hematologic/Lymphatic: No Easy Bleeding, No Easy Bruising All Other Systems: Reviewed and Negative - Past Medical History Pertinent Past Medical History: Yes Neurological History: Seizures ENT History: Cataracts Cardiac History: High Cholesterol, Hypertension, Other Respiratory History: Asthma, Bronchitis, COPD Endocrine Medical History: Diabetes Type II, Other Musculoskeletal History: Arthritis, Osteoarthritis GI Medical History: GERD History: No Pertinent History Psycho-Social History: Anxiety, Depression Female Reproductive Disorders: No Pertinent History Other Medical History: OA IN LEFT FOOT, RIGHT HAND, NECK;. LEAKING HEART VALVE - Past Surgical History Past Surgical History: Yes Neuro Surgical History: No Pertinent History Cardiac: Angioplasty, Cardiac Catheterization Respiratory: No Pertinent History Gastrointestinal: Cholecystectomy Genitourinary: No Pertinent History Musculoskeletal: No Pertinent History, Orthopedic Surgery Female Surgical History: Tubal Ligation Other Surgical History: HEART CATH, rotator cuff in oct 2015. "leaky heart valve " - Social History Smoking Status: Former smoker How long have you smoked: 6 YEARS Exposure to second hand smoke: Yes Alcohol Use: None Drug Use: none Patient Lives Alone: No Significant Family History: no pertinent family hx - Female History Hx Now: No - Nursing Vital Signs Nursing Vital Signs: Initial Vital Signs Temperature 98.1 F 09/16/19 13:07 Pulse Rate 77 09/16/19 13:07 Respiratory Rate 20 09/16/19 13:07 Blood Pressure 154/99 09/16/19 13:07 O2 Sat by Pulse Oximetry 97 09/16/19 13:07 Pain Scale Pain Intensity 4 - Physical Exam General Appearance: no apparent distress, alert Eye Exam: PERRL/EOMI, eyes nml inspection, No scleral icterus Ears, Nose, Throat Exam: normal ENT inspection, TMs normal, pharynx normal, moist mucous membranes, No TM abnormal (R), No TM abnormal (L), No pharyngeal erythema, No tonsillar exudate Neck Exam: normal inspection, non-tender, supple, full range of motion, No meningismus, No Brudzinski Respiratory Exam: lungs clear, airway intact, prolonged expirations, wheezing, No chest tenderness, No respiratory distress, No diminished breath sounds, No accessory muscle use, No crackles/rales, No rhonchi, No stridor, No pleural rub Cardiovascular Exam: regular rate/rhythm, normal heart sounds, normal peripheral pulses, capillary refill <2 sec, No murmur Gastrointestinal/Abdomen Exam: soft, normal bowel sounds, No tenderness, No distention, No mass, No pulsatile mass, No rebound Back Exam: normal inspection, normal range of motion, No CVA tenderness, No vertebral tenderness, No rash Extremity Exam: normal inspection, normal range of motion, pelvis stable, No calf tenderness, No deformities, No korina's sign, No inflammation, No pedal edema, No swelling Neurologic Exam: alert, oriented x 3, cooperative, aquatic life laborer II-XII nml as tested, normal mood/affect, sensation nml, No motor deficits, No motor weakness Skin Exam: normal color, warm, dry, No rash, No petechiae, No cyanosis SpO2 Interpretation: normal SpO2: 97 O2 Delivery: Room Air - Course Nursing assessment & vital signs reviewed: Yes - Radiology Exams Chest X-ray Interpretation: Interpreted by me, Reviewed by me, No Pneumonia, No Pneumothorax, Nml Heart Size, No Infiltrates, Nml Mediastinum Ordered Tests: Active Orders 24 hr Category Date Time Status CHEST 1 VIEW (PORTABLE) Stat Exams 09/16/19 13:34 Taken Peak Expiratory Flow Rate ONCE RT 09/16/19 13:50 Active Respiratory Therapy Assessment DAILY RT 09/16/19 13:49 Active Medication Summary Discontinued Medications Generic Name Dose Route Start Last Admin Trade Name Curry PRN Reason Stop Dose Admin Albuterol Sulfate 2.5 mg 09/16/19 13:17 09/16/19 13:56 Proventil Solution 2.5 Mg/0.5 Ml IH 09/16/19 13:18 Not Given STAT ONE Albuterol Sulfate Confirm 09/16/19 13:44 Proventil 2.5 Mg/3 Ml Neb Administered 09/16/19 13:45 Dose 2.5 mg IH .STK-MED ONE Albuterol Sulfate 2.5 mg 09/16/19 13:54 09/16/19 13:55 Proventil 2.5 Mg/3 Ml Neb IH 09/16/19 13:55 2.5 mg STAT ONE Administration Albuterol/Ipratropium 3 ml 09/16/19 13:17 09/16/19 13:46 Duoneb 0.5-3 Mg/3 Ml Neb IH 09/16/19 13:18 3 ml STAT ONE Administration Albuterol/Ipratropium Confirm 09/16/19 13:44 Duoneb 0.5-3 Mg/3 Ml Neb Administered 09/16/19 13:45 Dose 3 ml IH .STK-MED ONE Ondansetron HCl 4 mg 09/16/19 13:23 09/16/19 13:32 Zofran Odt 4 Mg PO 09/16/19 13:24 4 mg STAT ONE Administration Ondansetron HCl Confirm 09/16/19 13:30 Zofran Odt 4 Mg Administered 09/16/19 13:31 Dose 4 mg .ROUTE .STK-MED ONE Prednisone 60 mg 09/16/19 13:18 09/16/19 13:33 Deltasone 20 Mg PO 09/16/19 13:19 60 mg STAT ONE Administration Prednisone Confirm 09/16/19 13:30 Deltasone 20 Mg Administered 09/16/19 13:31 Dose 60 mg .ROUTE .STK-MED ONE - Progress Progress: improved, re-examined Air Movement: good Progress Note: 10/27/19 14:32 Patient has good improvement with significant improvement of the airways with almost resolution of her wheezing. Blood Culture(s) Obtained: No Antibiotics given: No Counseled pt/family regarding: lab results, diagnosis, need for follow-up, rad results - Departure Departure Disposition: Home, In-patient Admission Clinical Impression: COPD exacerbation, Essential hypertension Condition: Good Critical Care Time: No Referrals: LORIN WAN [Primary Care Provider] - Follow Up with PCP/3 days Instructions: Chronic Obstructive Pulmonary Disease, Cough, Adult (DC) Additional Instructions: your chest x-ray was read as negative by the emergency department physician on 09/16/2019. We will notify you if the radiologist interprets a different diagnosis and changes her therapy accordingly. Return immediately back to the emergency Department if any worsening shortness of breath, negative fever, productive cough, sputum, chest pain, pain on inspiration, back pain, abdominal pain, skin rashes or any other concerning signs or symptoms that were not present at today's emergency room visit for immediate reevaluation in the emergency department. Prescriptions: Albuterol/Ipratropium 3ml Neb* [DUONEB 0.5-3 MG/3 ml Neb] 3 ml NEBULIZE Q4H PRN PRN #1 box PRN Reason: Wheezing/Chest Congestion Azithromycin 250 mg [Zithromax 250 MG TABLET] 250 mg PO ZPACK #6 tablet Fluticasone/Salmeterol Disc [Advair 250-50 Diskus 14 Dose] 1 each IH BID # 1 disk.w.dev Prednisone 20 mg [Deltasone 20 mg] 60 mg PO DAILY #12 tablet
[2019-09-16] MEDS ORDERED: ZOFRAN ODT 4 MG PO ONE (13:23)
[2019-09-16] MEDS ORDERED: ZOFRAN ODT 4 MG ONE (13:30)
[2019-09-16] MEDS ORDERED: DELTASONE 20 MG ONE (13:30)
[2019-09-16] MEDS ORDERED: PROVENTIL 2.5 MG/3 ML NEB IH ONE ×2 (13:44→13:54)
[2019-09-16 14:57] VITALS: BP 127/83; PULSE 76; O2SAT 98
--- NOTE | 2019-09-16 19:54 | XRAY ---
Indication: Cough and congestion. Nausea and vomiting. Comparison: November 23, 2018. Portable chest again demonstrates normal heart and lungs. Bony thorax intact again with mild degenerative changes. No new/acute findings.
== END 2019-09-16 14:55 | disposition home or self-care (01) ==
LOC: ED 12:48
DX: J44.1 Chronic obstructive pulmonary disease with (acute) exacerbation (principal); I10 Essential (primary) hypertension
CPT/HCPCS: 71045; 94150; 94640; 99284; J7609; Q0162; A9270-GY

== ENCOUNTER 2019-10-28 13:13 | Emergency (ER) | payer SELFPAY ==
--- NOTE | 2019-10-28 13:16 | ERPHSYRPT ---
- History of Present Illness Time Seen by Provider: 10/28/19 13:16 Historian: patient Exam Limitations: no limitations Physician History: 54 y/o white female presents with 2 month h/o intermittent cough. the cough has improved but 2 days ago pt began having n/v/d. she cannot hold anything down. pt denies cp, denies abd pain. she does have bodyaches including headache. pt denies fever. Timing/Duration: day(s) (2) Activities at Onset: none Quality: aching (bodyaches) Pain Radiation: no radiation Severity of Pain-Max: none Severity of Pain-Current: none Modifying Factors: Improves With: nothing Associated Symptoms: diarrhea, headache, loss of appetite, nausea, vomiting, No chest pain, No fever/chills, No neck pain Previous symptoms: no prior history Allergies/Adverse Reactions: morphine Allergy (Verified 10/28/19 13:32) levofloxacin [From Levaquin] Adverse Reaction (Intermediate, Verified 10/28/19 13:32) PT STATES ONE TIME SHE HAD THIS MEDICINE AND HER VEINS ALL TURNED BRIGHT RED Home Medications: Albuterol Sulfate [Ventolin Hfa] 8 gm IH Q6-8HPRN PRN 02/21/18 [History] Meclizine HCl 25 mg [Antivert 25 mg] 25 mg PO BID 02/21/18 [History] Ropinirole HCl [Requip] 1 mg PO BID 02/21/18 [History] Simvastatin [Zocor] 5 mg PO HS 02/21/18 [History] Carvedilol 6.25 mg PO BID 02/22/18 [History] Omeprazole Magnesium [Prilosec Otc] 20 mg PO DAILY 10/28/19 [History] Hx Tetanus, Diphtheria Vaccination/Date Given: Yes Hx Influenza Vaccination/Date Given: No Hx Pneumococcal Vaccination/Date Given: No - Review of Systems Constitutional: Weakness Eyes: No Symptoms Ears, Nose, & Throat: No Symptoms Respiratory: Cough (mild improving) Cardiac: No Symptoms Abdominal/Gastrointestinal: Nausea, Vomiting, Diarrhea, No Abdominal Pain Genitourinary Symptoms: No Symptoms Musculoskeletal: Arthralgias, Myalgias, No Injury Skin: No Symptoms Neurological: Headache Psychological: No Symptoms Endocrine: No Symptoms Hematologic/Lymphatic: No Symptoms Immunological/Allergic: No Symptoms All Other Systems: Reviewed and Negative - Past Medical History Pertinent Past Medical History: Yes Neurological History: Seizures ENT History: Cataracts Cardiac History: High Cholesterol, Hypertension, Other Respiratory History: Asthma, Bronchitis, COPD Endocrine Medical History: Diabetes Type II, Other Musculoskeletal History: Arthritis, Osteoarthritis GI Medical History: GERD History: No Pertinent History Psycho-Social History: Anxiety, Depression Female Reproductive Disorders: No Pertinent History Other Medical History: OA IN LEFT FOOT, RIGHT HAND, NECK;. LEAKING HEART VALVE - Past Surgical History Past Surgical History: Yes Neuro Surgical History: No Pertinent History Cardiac: Angioplasty, Cardiac Catheterization Respiratory: No Pertinent History Gastrointestinal: Cholecystectomy Genitourinary: No Pertinent History Musculoskeletal: No Pertinent History, Orthopedic Surgery Female Surgical History: Tubal Ligation Other Surgical History: HEART CATH, rotator cuff in oct 2015. "leaky heart valve " - Social History Smoking Status: Former smoker How long have you smoked: 6 YEARS Exposure to second hand smoke: Yes Alcohol Use: None Drug Use: none Patient Lives Alone: No Significant Family History: no pertinent family hx - Nursing Vital Signs Nursing Vital Signs: Initial Vital Signs Temperature 97.3 F 10/28/19 13:20 Pulse Rate 96 H 10/28/19 13:20 Respiratory Rate 18 10/28/19 13:20 Blood Pressure 165/100 10/28/19 13:20 O2 Sat by Pulse Oximetry 100 10/28/19 13:20 Pain Scale Pain Intensity 2 - Physical Exam General Appearance: mild distress, alert, anxiety, obese Eye Exam: PERRL/EOMI, eyes nml inspection Ears, Nose, Throat Exam: normal ENT inspection, moist mucous membranes Neck Exam: normal inspection, non-tender, supple, full range of motion Respiratory Exam: normal breath sounds, lungs clear, airway intact, No chest tenderness, No respiratory distress Cardiovascular Exam: regular rate/rhythm, normal heart sounds, normal peripheral pulses Gastrointestinal/Abdomen Exam: soft, normal bowel sounds, No tenderness Pelvic Exam: not done Rectal Exam: not done Back Exam: normal inspection, normal range of motion, No CVA tenderness, No vertebral tenderness Extremity Exam: normal inspection, normal range of motion, pelvis stable Neurologic Exam: alert, oriented x 3, cooperative, certified medical technician II-XII nml as tested Skin Exam: normal color, warm, dry Lymphatic Exam: No adenopathy SpO2 Interpretation: normal O2 Delivery: Room Air - Course Nursing assessment & vital signs reviewed: Yes EKG Interpreted by Me: RATE (85), Sinus Rhythm, NORMAL AXIS, NORMAL INTERVALS, NORMAL QRS, Other (resolved nonspecific st segment changes when compared to ekg dated 03/16/19) Ordered Tests: Active Orders 24 hr Category Date Time Status IV Insertion STAT Care 10/28/19 13:35 Active CHEST 1 VIEW (PORTABLE) Stat Exams 10/28/19 14:19 Taken AMYLASE Stat Lab 10/28/19 14:43 Completed CBC W DIFF Stat Lab 10/28/19 14:43 Completed CMP Stat Lab 10/28/19 14:43 Completed LIPASE Stat Lab 10/28/19 14:43 Completed Robertson Screen Stat Lab 10/28/19 14:43 Completed UA W/RFX UR CULTURE Stat Lab 10/28/19 14:17 Completed Medication Summary Generic Name Dose Route Start Last Admin Trade Name Freq PRN Reason Stop Dose Admin Sodium Chloride 1,000 mls @ 999 mls/hr 10/28/19 16:15 Sodium Chloride 0.9% 1000 Ml IV 10/28/19 17:15 .Q1H1M STA Discontinued Medications Generic Name Dose Route Start Last Admin Trade Name Freq PRN Reason Stop Dose Admin Sodium Chloride 1,000 mls @ 999 mls/hr 10/28/19 14:17 10/28/19 15:33 Sodium Chloride 0.9% 1000 Ml IV 10/28/19 15:17 Infused .Q1H1M STA Infusion Sodium Chloride Confirm 10/28/19 14:23 Sodium Chloride 0.9% 1000 Ml Administered 10/28/19 14:24 Dose 1,000 mls @ ud .ROUTE .STK-MED ONE Ondansetron HCl 4 mg 10/28/19 14:17 10/28/19 14:29 Zofran 4 Mg/2 Ml Vial IV 10/28/19 14:18 4 mg STAT ONE Administration Ondansetron HCl Confirm 10/28/19 14:23 Zofran 4 Mg/2 Ml Vial Administered 10/28/19 14:24 Dose 4 mg .ROUTE .STK-MED ONE Lab/Rad Data: Laboratory Result Diagrams 10/28/19 14:43 10/28/19 14:43 Laboratory Results 10/28/19 10/28/19 10/28/19 Range/Units 14:43 14:43 14:43 WBC (4.0-10.5) K/mm3 RBC (4.1-5.4) M/mm3 Hgb (12.0-16.0) gm/dl Hct (35-47) % MCV (78-100) fl MCH (26-32) pg MCHC (32-36) g/dl RDW (11.5-14.0) % Plt Count (150-450) K/mm3 MPV (6-9.5) fl Gran % (36.0-66.0) % Eos # (Auto) (0-0.5) Absolute Lymphs (auto) (1.0-4.6) Absolute Monos (auto) (0.0-1.3) Lymphocytes % (24.0-44.0) % Monocytes % (0.0-12.0) % Eosinophils % (0.00-5.0) % Basophils % (0.0-0.4) % Absolute Granulocytes (1.4-6.9) Basophils # (0-0.4) Sodium 142 (137-145) mmol/L Potassium 4.1 (3.5-5.1) mmol/L Chloride 106 (98-107) mmol/L Carbon Dioxide 27 (22-30) mmol/L Anion Gap 12.7 (5-15) MEQ/L BUN 9 (7-17) mg/dL Creatinine 0.65 (0.52-1.04) mg/dL Estimated GFR > 60.0 ML/MIN Glucose 107 H (74-106) mg/dL Calcium 9.1 (8.4-10.2) mg/dL Total Bilirubin 0.60 (0.2-1.3) mg/dL AST 56 H (14-36) U/L ALT 48 H (0-35) U/L Alkaline Phosphatase 106 (38-126) U/L Serum Total Protein 7.7 (6.3-8.2) g/dL Albumin 4.0 (3.5-5.0) g/dL Amylase 49 (30-110) U/L Lipase 31 (23-300) U/L Urine Color (YELLOW) Urine Appearance (CLEAR) Urine pH (5-6) Ur Specific Dickinson (1.005-1.025) Urine Protein (Negative) Urine Ketones (NEGATIVE) Urine Blood (0-5) Stu/ul Urine Nitrite (NEGATIVE) Urine Bilirubin (NEGATIVE) Urine Urobilinogen (0-1) mg/dL Ur Leukocyte Esterase (NEGATIVE) Urine WBC (Auto) (0-5) /HPF Urine RBC (Auto) (0-2) /HPF U Epithel Cells (Auto) (FEW) /HPF Urine Bacteria (Auto) (NEGATIVE) /HPF Urine Mucus (Auto) (NEGATIVE) /HPF Urine Culture Reflexed (NO) Urine Glucose (NEGATIVE) mg/dL Monoscreen NEGATIVE (Negative) Influenza Type A Ag NEGATIVE (NEGATIVE) Influenza Type B Ag NEGATIVE (NEGATIVE) RSV (PCR) NEGATIVE (Negative) Group A Strep Antibody NEGATIVE (NEGATIVE) 10/28/19 10/28/19 Range/Units 14:43 14:17 WBC 6.0 (4.0-10.5) K/mm3 RBC 4.21 (4.1-5.4) M/mm3 Hgb 12.7 (12.0-16.0) gm/dl Hct 38.9 (35-47) % MCV 92.4 (78-100) fl MCH 30.2 (26-32) pg MCHC 32.6 (32-36) g/dl RDW 12.4 (11.5-14.0) % Plt Count 208 (150-450) K/mm3 MPV 11.4 H (6-9.5) fl Gran % 50.6 (36.0-66.0) % Eos # (Auto) 0.29 (0-0.5) Absolute Lymphs (auto) 1.98 (1.0-4.6) Absolute Monos (auto) 0.66 (0.0-1.3) Lymphocytes % 33.1 (24.0-44.0) % Monocytes % 11.0 (0.0-12.0) % Eosinophils % 4.8 (0.00-5.0) % Basophils % 0.5 (0.0-0.4) % Absolute Granulocytes 3.02 (1.4-6.9) Basophils # 0.03 (0-0.4) Sodium (137-145) mmol/L Potassium (3.5-5.1) mmol/L Chloride (98-107) mmol/L Carbon Dioxide (22-30) mmol/L Anion Gap (5-15) MEQ/L BUN (7-17) mg/dL Creatinine (0.52-1.04) mg/dL Estimated GFR ML/MIN Glucose (74-106) mg/dL Calcium (8.4-10.2) mg/dL Total Bilirubin (0.2-1.3) mg/dL AST (14-36) U/L ALT (0-35) U/L Alkaline Phosphatase (38-126) U/L Serum Total Protein (6.3-8.2) g/dL Albumin (3.5-5.0) g/dL Amylase (30-110) U/L Lipase (23-300) U/L Urine Color YELLOW (YELLOW) Urine Appearance CLEAR (CLEAR) Urine pH 6.0 (5-6) Ur Specific Dickinson 1.005 (1.005-1.025) Urine Protein NEGATIVE (Negative) Urine Ketones NEGATIVE (NEGATIVE) Urine Blood SMALL (0-5) Stu/ul Urine Nitrite NEGATIVE (NEGATIVE) Urine Bilirubin NEGATIVE (NEGATIVE) Urine Urobilinogen 4 (0-1) mg/dL Ur Leukocyte Esterase NEGATIVE (NEGATIVE) Urine WBC (Auto) NONE (0-5) /HPF Urine RBC (Auto) NONE (0-2) /HPF U Epithel Cells (Auto) RARE (FEW) /HPF Urine Bacteria (Auto) NONE (NEGATIVE) /HPF Urine Mucus (Auto) SLIGHT (NEGATIVE) /HPF Urine Culture Reflexed NO (NO) Urine Glucose NEGATIVE (NEGATIVE) mg/dL Monoscreen (Negative) Influenza Type A Ag (NEGATIVE) Influenza Type B Ag (NEGATIVE) RSV (PCR) (Negative) Group A Strep Antibody (NEGATIVE) - Progress Progress: improved, re-examined Progress Note: 10/28/19 16:13 cxr-no acute process 10/28/19 16:19 pt states she is feeling well. Counseled pt/family regarding: lab results, diagnosis, need for follow-up, rad results - Departure Departure Disposition: Home Clinical Impression: Vomiting and diarrhea Condition: Stable Critical Care Time: No Referrals: LORIN WAN [Primary Care Provider] - Additional Instructions: drink plenty of fluids. follow up with primary doctor for further management Prescriptions: Ondansetron HCl [Zofran] 4 mg PO TID PRN #10 tablet PRN Reason: Nausea/Vomiting
[2019-10-28] MEDS ORDERED: Zofran 4 MG/2 ML VIAL IV ONE ×2 (14:17→17:49)
[2019-10-28] MEDS ORDERED: Sodium Chloride 0.9% 1000 ML 1,000 ML IV STA ×3 (14:17→17:50)
[2019-10-28] MEDS ORDERED: Sodium Chloride 0.9% 1000 ML 1,000 ML ONE ×2 (14:23→16:18)
[2019-10-28] MEDS ORDERED: Zofran 4 MG/2 ML VIAL ONE ×2 (14:23→17:57)
[2019-10-28 14:38] LABS: Appearance CLEAR (CLEAR); Bilirubin NEGATIVE (NEGATIVE); Blood SMALL Ery/ul (0-5); Epithelial Cells RARE /HPF (FEW); Glucose NEGATIVE (NEGATIVE); Ketones NEGATIVE (NEGATIVE); Leukocyte Esterase NEGATIVE (NEGATIVE); Mucus SLIGHT /HPF (NEGATIVE); Nitrite NEGATIVE (NEGATIVE); Protein,Urine Dip NEGATIVE (Negative); Specific Gravity 1.005 (1.005-1.025); Urobilinogen 4 mg/dL (0-1)
[2019-10-28 14:51] LABS: Absolute Neutrophil Ct (ANC) 3.02 (1.4-6.9); BASOPHIL % 0.5 % (0.0-0.4); Basophil (Absolute #) 0.03 (0-0.4); Eosinophil % 4.8 % (0.00-5.0); Eosinophil (Absolute #) 0.29 (0-0.5); Hematocrit 38.9 % (35-47); Hemoglobin 12.7 gm/dl (12.0-16.0); Lymphocyte (Absolute #) 1.98 (1.0-4.6); Lymphocytes % 33.1 % (24.0-44.0); Mean Cell Volume 92.4 fl (78-100); Mean Corpuscular Hemoglobin 30.2 pg (26-32); Mean Corpuscular Hgb Concent. 32.6 g/dl (32-36); Mean Platelet Volume 11.4 fl (6-9.5); Monocyte (Absolute #) 0.66 (0.0-1.3); Neutrophil % 50.6 % (36.0-66.0); Platelet Count 208 K/mm3 (150-450); Red Blood Count 4.21 M/mm3 (4.1-5.4); Red Cell Distribution Width 12.4 % (11.5-14.0)
[2019-10-28 14:57] LABS: ALKALINE PHOSPHATASE 106 U/L (38-126); AMYLASE 49 U/L (30-110); ANION GAP 12.7 MEQ/L (5-15); BLOOD UREA NITROGEN 9 mg/dL (7-17); CHLORIDE 106 mmol/L (98-107); Calcium 9.1 mg/dL (8.4-10.2); Carbon Dioxide 27 mmol/L (22-30); Creatinine 1 0.65 mg/dL (0.52-1.04); Glucose 107 mg/dL (74-106); LIPASE 31 U/L (23-300); Potassium 4.1 mmol/L (3.5-5.1); SGOT/AST 56 U/L (14-36); SGPT/ALT 48 U/L (0-35); SODIUM 142 mmol/L (137-145); Total Protein 7.7 g/dL (6.3-8.2)
[2019-10-28 15:36] LABS: Group A Strep NEGATIVE (NEGATIVE); INFLUENZA A NEGATIVE (NEGATIVE); INFLUENZA B NEGATIVE (NEGATIVE); RESPIRATORY SYNCTIAL VIRUS NEGATIVE (Negative)
[2019-10-28 16:15] VITALS: PULSE 81; O2SAT 99
[2019-10-28] MEDS ORDERED: Phenergan 25 MG INJ IM ONE (16:45)
[2019-10-28] MEDS ORDERED: Phenergan 25 MG INJ ONE (16:46)
[2019-10-28] MEDS ORDERED: Pepcid 20 MG VIAL IV ONE (16:47)
[2019-10-28] MEDS ORDERED: NORCO 5/325 MG PO ONE (17:52)
[2019-10-28] MEDS ORDERED: Sodium Chloride 0.9% 500 ML 500 ML IV ONE ×2 (17:53→17:58)
[2019-10-28 17:55] VITALS: BP 142/88
[2019-10-28] MEDS ORDERED: NORCO 5/325 MG ONE (17:57)
--- NOTE | 2019-10-28 20:58 | XRAY ---
Indication: Cough. Comparison: September 16, 2019. Portable chest again demonstrates normal heart and lungs. Bony thorax intact again with mild degenerative changes. No new/acute findings.
[2019-10-28] MEDS ORDERED: Pepcid 20 MG VIAL IV SCH (22:00)
== END 2019-10-28 18:30 | disposition home or self-care (01) ==
LOC: ED 13:13
DX: R11.10 Vomiting, unspecified (principal); R19.7 Diarrhea, unspecified; I10 Essential (primary) hypertension; E11.9 Type 2 diabetes mellitus without complications; M19.90 Unspecified osteoarthritis, unspecified site; J44.9 Chronic obstructive pulmonary disease, unspecified
CPT/HCPCS: 36000; 36415; 71045; 80053; 81001; 82150; 83690; 85025; 86308; 87631; 87651; 96360; 96372; 96374; 96375; 96376; 99285; J2405; J2550; A9270-GY

== ENCOUNTER 2020-03-21 11:16 | Emergency (ER) | payer SELFPAY ==
[2020-03-21] MEDS ORDERED: Sodium Chloride 0.9% 1000 ML 1,000 ML IV STA (11:44)
[2020-03-21 12:22] LABS: Absolute Neutrophil Ct (ANC) 4.24 (1.4-6.9); BASOPHIL % 0.4 % (0.0-0.4); Basophil (Absolute #) 0.03 (0-0.4); Eosinophil % 3.1 % (0.00-5.0); Eosinophil (Absolute #) 0.22 (0-0.5); Hematocrit 42.5 % (35-47); Lymphocyte (Absolute #) 1.95 (1.0-4.6); Lymphocytes % 27.9 % (24.0-44.0); Mean Corpuscular Hemoglobin 30.3 pg (26-32); Mean Corpuscular Hgb Concent. 32.9 g/dl (32-36); Mean Platelet Volume 11.3 fl (7.5-11.0); Monocyte (Absolute #) 0.56 (0.0-1.3); Neutrophil % 60.6 % (36.0-66.0); Platelet Count 223 K/mm3 (150-450); Red Blood Count 4.62 M/mm3 (4.1-5.4); Red Cell Distribution Width 12.2 % (11.5-14.0)
[2020-03-21 12:23] LABS: INR 1.12 (0.8-3.0); PROTIME 12.7 SECONDS (9.95-12.35)
[2020-03-21 12:28] LABS: ALBUMIN 4.1 g/dL (3.5-5.0); ALKALINE PHOSPHATASE 110 U/L (38-126); ANION GAP 13.1 MEQ/L (5-15); BLOOD UREA NITROGEN 11 mg/dL (7-17); CHLORIDE 105 mmol/L (98-107); Carbon Dioxide 24 mmol/L (22-30); Creatinine 1 0.69 mg/dL (0.52-1.04); Glucose 147 mg/dL (74-106); Potassium 4.5 mmol/L (3.5-5.1); SGOT/AST 36 U/L (14-36); SGPT/ALT 31 U/L (0-35); SODIUM 138 mmol/L (137-145); Total Protein 7.7 g/dL (6.3-8.2)
--- NOTE | 2020-03-21 12:35 | XRAY ---
Indication: Cough, dizziness, and nausea. COPD. Comparison: October 28, 2019. Single PA chest again demonstrates normal heart and lungs. Bony thorax intact again with mild degenerative changes. No new/acute findings.
--- NOTE | 2020-03-21 12:35 | XRAY ---
Indication: Right facial pain. Comparison: None 4 view paranasal sinuses are clear. Incidental minimal nasal septal deviation and hyperostosis frontalis. No other bony, articular, or soft tissue abnormalities.
--- NOTE | 2020-03-21 12:46 | ERPHSYRPT ---
- History of Present Illness Time Seen by Provider: 03/21/20 11:25 Source: patient Exam Limitations: no limitations Patient Subjective Stated Complaint: Pt states "I have had nasal congestion, body aches, headache for the past week. I called my DrFranny and they said they were booked and could not get me in." Triage Nursing Assessment: Pt presented alert and oriented X 3, skin pwd Pt ambulates with an upright steady gait, able to speak in clear full sentences pt in no apparent respiratory distress. Physician History: Patient is a 54-year-old female with longstanding COPD who presents with body aches headache nausea dizziness but no fever she does have a nonproductive cough. She has been sick for 5 days. Timing/Duration: day(s) (5) Cough Quality/Degree: dry cough Possible Cause: frequent episodes Modifying Factors: Improves With: coughing Associated Symptoms: cough, dizziness, facial pain, No fever, No chills Allergies/Adverse Reactions: morphine Allergy (Verified 10/28/19 13:32) levofloxacin [From Levaquin] Adverse Reaction (Intermediate, Verified 10/28/19 13:32) PT STATES ONE TIME SHE HAD THIS MEDICINE AND HER VEINS ALL TURNED BRIGHT RED Home Medications: Albuterol Sulfate [Ventolin Hfa] 8 gm IH Q6-8HPRN PRN 02/21/18 [History] Meclizine HCl 25 mg [Antivert 25 mg] 25 mg PO BID 02/21/18 [History] Ropinirole HCl [Requip] 1 mg PO BID 02/21/18 [History] Simvastatin [Zocor] 5 mg PO HS 02/21/18 [History] carvediloL [Carvedilol] 6.25 mg PO BID 02/22/18 [History] Omeprazole Magnesium [Prilosec Otc] 20 mg PO DAILY 10/28/19 [History] Hx Tetanus, Diphtheria Vaccination/Date Given: Yes Hx Influenza Vaccination/Date Given: Yes Hx Pneumococcal Vaccination/Date Given: No Immunizations Up to Date: Yes Travel Risk - International Travel Have you traveled outside of the country in past 3 weeks: No Have you or anyone close to you been diagnosed with or: No Do your reside in a community with a known COVID-19 case?: Yes If Yes where:: [place] - Coronavirus Screening Has patient experienced Coronavirus symptoms: Yes Symptoms experienced: severe headache - Review of Systems Constitutional: No Fever, No Chills Eyes: No Symptoms Ears, Nose, & Throat: Ear Pain, Nose Congestion Respiratory: Cough, Wheezing, No Dyspnea Cardiac: No Chest Pain, No Edema, No Syncope Abdominal/Gastrointestinal: No Abdominal Pain, No Nausea, No Vomiting, No Diarrhea Genitourinary Symptoms: No Dysuria Musculoskeletal: No Back Pain, No Neck Pain Skin: No Rash Neurological: No Dizziness, No Focal Weakness, No Sensory Changes Psychological: No Symptoms Endocrine: No Symptoms All Other Systems: Reviewed and Negative - Past Medical History Pertinent Past Medical History: Yes Neurological History: Seizures ENT History: Cataracts Cardiac History: High Cholesterol, Hypertension, Other Respiratory History: Asthma, Bronchitis, COPD Endocrine Medical History: Diabetes Type II, Other Musculoskeletal History: Arthritis, Osteoarthritis GI Medical History: GERD History: No Pertinent History Psycho-Social History: Anxiety, Depression Female Reproductive Disorders: No Pertinent History Other Medical History: OA IN LEFT FOOT, RIGHT HAND, NECK;. LEAKING HEART VALVE - Past Surgical History Past Surgical History: Yes Neuro Surgical History: No Pertinent History Cardiac: Angioplasty, Cardiac Catheterization Respiratory: No Pertinent History Gastrointestinal: Cholecystectomy Genitourinary: No Pertinent History Musculoskeletal: No Pertinent History, Orthopedic Surgery Female Surgical History: Tubal Ligation Other Surgical History: HEART CATH, rotator cuff in oct 2015. "leaky heart valve " - Social History Smoking Status: Former smoker How long have you smoked: 6 YEARS Exposure to second hand smoke: No Alcohol Use: None Drug Use: none Patient Lives Alone: No Significant Family History: no pertinent family hx - Female History Hx Last Menstrual Period: 03/05/2020 Hx Now: No (tubal) - Nursing Vital Signs Nursing Vital Signs: Initial Vital Signs Temperature 97.1 F 03/21/20 11:23 Pulse Rate 114 H 03/21/20 11:23 Respiratory Rate 24 03/21/20 11:23 Blood Pressure 149/90 03/21/20 11:23 O2 Sat by Pulse Oximetry 99 03/21/20 11:23 Pain Scale Pain Intensity 5 - Physical Exam General Appearance: no apparent distress, alert Eye Exam: PERRL/EOMI, eyes nml inspection Ears, Nose, Throat Exam: normal ENT inspection, pharynx normal, moist mucous membranes, TM abnormal (R) (Red) Neck Exam: normal inspection, non-tender, supple, full range of motion Respiratory Exam: rhonchi, wheezing, No respiratory distress Cardiovascular Exam: regular rate/rhythm, normal heart sounds Gastrointestinal/Abdomen Exam: soft, No tenderness Back Exam: normal inspection, No CVA tenderness, No vertebral tenderness Extremity Exam: normal inspection, normal range of motion Neurologic Exam: alert, oriented x 3, cooperative, normal mood/affect, sensation nml, No motor deficits Skin Exam: normal color, warm, dry, No rash Lymphatic Exam: No adenopathy SpO2: 99 - Course Nursing assessment & vital signs reviewed: Yes - Radiology Exams Chest X-ray Interpretation: Negative Other X-ray Interpretation: Negative (Sinuses negative) Ordered Tests: Active Orders 24 hr Category Date Time Status IV Insertion STAT Care 03/21/20 11:44 Active CHEST 1 VIEW (PORTABLE) Stat Exams 03/21/20 11:46 Completed SINUSES Stat Exams 03/21/20 12:24 Completed BLOOD CULTURE Stat Lab 03/21/20 11:46 Ordered CBC W DIFF Stat Lab 03/21/20 12:10 Completed CMP Stat Lab 03/21/20 12:10 Completed D-DIMER QUANTITATIVE Stat Lab 03/21/20 12:10 Completed Ferritin Stat Lab 03/21/20 12:10 Received LDH-LACTATE DEHYDROGENASE Stat Lab 03/21/20 11:48 Ordered Lactic Acid Stat Lab 03/21/20 11:44 Completed PROTIME WITH INR Stat Lab 03/21/20 12:10 Completed UA W/RFX UR CULTURE Stat Lab 03/21/20 11:46 Uncollected Respiratory Therapy Consult ROUTINE RT 03/21/20 11:43 Active Medication Summary Generic Name Dose Route Start Last Admin Trade Name Shahriarq PRN Reason Stop Dose Admin Sodium Chloride 1,000 mls @ 999 mls/hr 03/21/20 11:44 Sodium Chloride 0.9% 1000 Ml IV 03/21/20 12:44 .Q1H1M STA Lab/Rad Data: Laboratory Result Diagrams 03/21/20 12:10 03/21/20 12:10 Laboratory Results 03/21/20 03/21/20 03/21/20 Range/Units 12:10 12:10 12:10 WBC 7.0 (4.0-10.5) K/mm3 RBC 4.62 (4.1-5.4) M/mm3 Hgb 14.0 (12.0-16.0) gm/dl Hct 42.5 (35-47) % MCV 92.0 (78-100) fl MCH 30.3 (26-32) pg MCHC 32.9 (32-36) g/dl RDW 12.2 (11.5-14.0) % Plt Count 223 (150-450) K/mm3 MPV 11.3 H (7.5-11.0) fl Gran % 60.6 (36.0-66.0) % Eos # (Auto) 0.22 (0-0.5) Absolute Lymphs (auto) 1.95 (1.0-4.6) Absolute Monos (auto) 0.56 (0.0-1.3) Lymphocytes % 27.9 (24.0-44.0) % Monocytes % 8.0 (0.0-12.0) % Eosinophils % 3.1 (0.00-5.0) % Basophils % 0.4 (0.0-0.4) % Absolute Granulocytes 4.24 (1.4-6.9) Basophils # 0.03 (0-0.4) PT 12.7 H (9.95-12.35) SECONDS INR 1.12 (0.8-3.0) D-Dimer 447 (215-500) ng/mL Sodium 138 (137-145) mmol/L Potassium 4.5 (3.5-5.1) mmol/L Chloride 105 (98-107) mmol/L Carbon Dioxide 24 (22-30) mmol/L Anion Gap 13.1 (5-15) MEQ/L BUN 11 (7-17) mg/dL Creatinine 0.69 (0.52-1.04) mg/dL Estimated GFR > 60.0 ML/MIN Glucose 147 H (74-106) mg/dL Lactic Acid (0.4-2.0) Calcium 9.0 (8.4-10.2) mg/dL Total Bilirubin 0.90 (0.2-1.3) mg/dL AST 36 (14-36) U/L ALT 31 (0-35) U/L Alkaline Phosphatase 110 (38-126) U/L Serum Total Protein 7.7 (6.3-8.2) g/dL Albumin 4.1 (3.5-5.0) g/dL 05/01/20 Range/Units 11:44 WBC (4.0-10.5) K/mm3 RBC (4.1-5.4) M/mm3 Hgb (12.0-16.0) gm/dl Hct (35-47) % MCV (78-100) fl MCH (26-32) pg MCHC (32-36) g/dl RDW (11.5-14.0) % Plt Count (150-450) K/mm3 MPV (7.5-11.0) fl Gran % (36.0-66.0) % Eos # (Auto) (0-0.5) Absolute Lymphs (auto) (1.0-4.6) Absolute Monos (auto) (0.0-1.3) Lymphocytes % (24.0-44.0) % Monocytes % (0.0-12.0) % Eosinophils % (0.00-5.0) % Basophils % (0.0-0.4) % Absolute Granulocytes (1.4-6.9) Basophils # (0-0.4) PT (9.95-12.35) SECONDS INR (0.8-3.0) D-Dimer (215-500) ng/mL Sodium (137-145) mmol/L Potassium (3.5-5.1) mmol/L Chloride (98-107) mmol/L Carbon Dioxide (22-30) mmol/L Anion Gap (5-15) MEQ/L BUN (7-17) mg/dL Creatinine (0.52-1.04) mg/dL Estimated GFR ML/MIN Glucose (74-106) mg/dL Lactic Acid 1.3 (0.4-2.0) Calcium (8.4-10.2) mg/dL Total Bilirubin (0.2-1.3) mg/dL AST (14-36) U/L ALT (0-35) U/L Alkaline Phosphatase (38-126) U/L Serum Total Protein (6.3-8.2) g/dL Albumin (3.5-5.0) g/dL - Progress Progress: improved Air Movement: good Blood Culture(s) Obtained: No Antibiotics given: Yes - Departure Departure Disposition: Home Clinical Impression: COPD exacerbation, Otitis media of right ear Condition: Stable Critical Care Time: No Referrals: LORIN WAN [Primary Care Provider] - Instructions: Chronic Obstructive Pulmonary Disease, Serous Otitis Media (DC) Prescriptions: Cephalexin Mh 500 mg [Keflex 500 mg] 500 mg PO TID #21 capsule Prednisone 10 mg [Deltasone 10 mg] 20 mg PO BID #12 tablet
[2020-03-21] MEDS ORDERED: VENTOLIN COMMON CANISTER IH STA (12:48)
[2020-03-21 13:20] LABS: INFLUENZA A NEGATIVE (NEGATIVE); INFLUENZA B NEGATIVE (NEGATIVE); RESPIRATORY SYNCTIAL VIRUS NEGATIVE (Negative)
[2020-03-21 13:33] VITALS: BP 136/86; PULSE 102; O2SAT 98
== END 2020-03-21 13:42 | disposition home or self-care (01) ==
LOC: ED 11:16
DX: J44.1 Chronic obstructive pulmonary disease with (acute) exacerbation (principal); H66.91 Otitis media, unspecified, right ear; E11.9 Type 2 diabetes mellitus without complications; R51 Headache; K21.9 Gastro-esophageal reflux disease without esophagitis; F41.9 Anxiety disorder, unspecified; F32.9 Major depressive disorder, single episode, unspecified; Z79.899 Other long term (current) drug therapy; I10 Essential (primary) hypertension; E78.00 Pure hypercholesterolemia, unspecified; J45.909 Unspecified asthma, uncomplicated
CPT/HCPCS: 36000; 36415; 70220; 71045; 80053; 82728; 83605; 83615; 85025; 85379; 85610; 87040; 87631; 99284

== ENCOUNTER 2020-07-15 18:01 | Observation (INO) | payer SELFPAY ==
[2020-07-15] MEDS ORDERED: DUONEB 0.5-3 MG/3 ml Neb IH ONE ×2 (18:28→18:31)
[2020-07-15] MEDS ORDERED: solu-MEDROL 125 MG IV ONE (18:32)
[2020-07-15] MEDS ORDERED: solu-MEDROL 125 MG ONE (18:35)
[2020-07-15 19:04] LABS: Absolute Neutrophil Ct (ANC) 4.17 (1.4-6.9); BASOPHIL % 0.3 % (0.0-0.4); Basophil (Absolute #) 0.02 (0-0.4); Eosinophil % 5.6 % (0.00-5.0); Eosinophil (Absolute #) 0.43 (0-0.5); Hematocrit 37.6 % (35-47); Hemoglobin 12.1 gm/dl (12.0-16.0); Lymphocyte (Absolute #) 2.24 (1.0-4.6); Lymphocytes % 29.4 % (24.0-44.0); Mean Cell Volume 94.7 fl (78-100); Mean Corpuscular Hemoglobin 30.5 pg (26-32); Mean Corpuscular Hgb Concent. 32.2 g/dl (32-36); Mean Platelet Volume 11.9 fl (7.5-11.0); Monocyte (Absolute #) 0.77 (0.0-1.3); Monocytes % 10.1 % (0.0-12.0); Neutrophil % 54.6 % (36.0-66.0); Platelet Count 219 K/mm3 (150-450); Red Blood Count 3.97 M/mm3 (4.1-5.4); Red Cell Distribution Width 12.3 % (11.5-14.0); White Blood Count 7.6 K/mm3 (4.0-10.5)
[2020-07-15 19:26] LABS: ALBUMIN 3.8 g/dL (3.5-5.0); ALKALINE PHOSPHATASE 77 U/L (38-126); BLOOD UREA NITROGEN 10 mg/dL (7-17); CHLORIDE 105 mmol/L (98-107); Calcium 8.9 mg/dL (8.4-10.2); Carbon Dioxide 21 mmol/L (22-30); Creatinine 1 0.63 mg/dL (0.52-1.04); EST GLOMERULAR FILTRATION RATE > 60.0 ML/MIN; Glucose 98 mg/dL (74-106); NT PRO BNP 270 pg/mL (0-900); Potassium 4.2 mmol/L (3.5-5.1); SGOT/AST 41 U/L (14-36); SGPT/ALT 28 U/L (0-35); SODIUM 134 mmol/L (137-145); Total Protein 7.1 g/dL (6.3-8.2)
--- NOTE | 2020-07-15 20:57 | ERPHSYRPT ---
- History of Present Illness Time Seen by Provider: 07/15/20 18:10 Source: patient Exam Limitations: no limitations Patient Subjective Stated Complaint: SOB Triage Nursing Assessment: Patient ambulated back to ED and transferred self to bed. Patient A+O x3. Patient's skin pink, warm and dry. Patient complains of SOB with occasional chest pain. Patient states her chest pain radiates to back between shoulder blades constant aching 5/10 with intermittent sharp pain 10/10. Patient's lungs noted to have wheezing throughout. No edema noted. Physician History: Patient is a 55-year-old female who presents to our ED with complaints of chest pain and shortness of breath. Symptoms started approximately 2 days ago. Patient states her chest pain tends to radiate to her back. No trauma. No fever. No nausea or vomiting. No diaphoresis. Pain is rated 5 out of 10. However she experiences acute intermittent bouts of pain rated 10 out of 10 no nausea vomiting or diaphoresis. Symptoms are mild to moderate in intensity. No specific worsening or improving factors. Patient does have a history of emphysema. Audible wheezing observed. Patient voiced no other complaints concerns at this time. Timing/Duration: day(s) (2) Activities at Onset: none Severity of Dyspnea-Max: moderate Severity of Dyspnea-Current: mild Possible Cause: occasional episodes Modifying Factors: Improves With: nothing Associated Symptoms: denies symptoms, No intermittent, No anxiety, No cough, No chest pain/discomfort, No edema, No fever, No insomnia, No loss of appetite, No lightheadedness, No wheezing, No weakness, No ankle swelling, No chills, No hemoptysis, No calf pain, No dizziness, No lightheadedness, No leg swelling, No muscle spasms feet, No muscle spasms hands, No painful breathing Allergies/Adverse Reactions: morphine Allergy (Verified 07/15/20 18:03) levofloxacin [From Levaquin] Adverse Reaction (Intermediate, Verified 07/15/20 18:03) PT STATES ONE TIME SHE HAD THIS MEDICINE AND HER VEINS ALL TURNED BRIGHT RED Home Medications: Albuterol Sulfate [Ventolin Hfa] 8 gm IH Q6-8HPRN PRN 02/21/18 [History] Meclizine HCl 25 mg [Antivert 25 mg] 25 mg PO BID 02/21/18 [History] Ropinirole HCl [Requip] 1 mg PO BID 02/21/18 [History] Simvastatin [Zocor] 5 mg PO HS 02/21/18 [History] carvediloL [Carvedilol] 6.25 mg PO BID 02/22/18 [History] Omeprazole Magnesium [Prilosec Otc] 20 mg PO DAILY 10/28/19 [History] Hx Tetanus, Diphtheria Vaccination/Date Given: Yes Hx Influenza Vaccination/Date Given: Yes Hx Pneumococcal Vaccination/Date Given: No Immunizations Up to Date: Yes Travel Risk - International Travel Have you traveled outside of the country in past 3 weeks: No - Coronavirus Screening Are you exhibiting any of the following symptoms?: No Symptoms: Cough: New Onset, Shortness of Breath, Vomiting/Diarrhea, Headaches/Body Aches/Fatigue Close contact with a COVID-19 positive Pt in past 14-21 Days: No - Review of Systems Constitutional: No Symptoms, No Fever, No Chills Eyes: No Symptoms Ears, Nose, & Throat: No Symptoms Respiratory: No Symptoms, No Cough, No Dyspnea Cardiac: No Symptoms, No Chest Pain, No Edema, No Syncope Abdominal/Gastrointestinal: No Symptoms, No Abdominal Pain, No Nausea, No Vomiting, No Diarrhea Genitourinary Symptoms: No Symptoms, No Dysuria Musculoskeletal: No Symptoms, No Back Pain, No Neck Pain Skin: No Symptoms, No Rash Neurological: No Symptoms, No Dizziness, No Focal Weakness, No Sensory Changes Psychological: No Symptoms Endocrine: No Symptoms Hematologic/Lymphatic: No Symptoms Immunological/Allergic: No Symptoms All Other Systems: Reviewed and Negative - Past Medical History Pertinent Past Medical History: Yes Neurological History: Seizures ENT History: Cataracts Cardiac History: High Cholesterol, Hypertension, Other Respiratory History: Asthma, Bronchitis, COPD Endocrine Medical History: Diabetes Type II, Other Musculoskeletal History: Arthritis, Osteoarthritis GI Medical History: GERD History: No Pertinent History Psycho-Social History: Anxiety, Depression Female Reproductive Disorders: No Pertinent History Other Medical History: OA IN LEFT FOOT, RIGHT HAND, NECK;. LEAKING HEART VALVE - Past Surgical History Past Surgical History: Yes Neuro Surgical History: No Pertinent History Cardiac: Angioplasty, Cardiac Catheterization Respiratory: No Pertinent History Gastrointestinal: Cholecystectomy Genitourinary: No Pertinent History Musculoskeletal: No Pertinent History, Orthopedic Surgery Female Surgical History: Tubal Ligation Other Surgical History: HEART CATH, rotator cuff in oct 2015. "leaky heart valve" - Social History Smoking Status: Former smoker How long have you smoked: 6 YEARS Exposure to second hand smoke: No Alcohol Use: None Drug Use: none Patient Lives Alone: No Significant Family History: no pertinent family hx - Female History Hx Now: No - Nursing Vital Signs Nursing Vital Signs: Initial Vital Signs Temperature 98.1 F 07/15/20 18:04 Pulse Rate 78 07/15/20 18:04 Respiratory Rate 18 07/15/20 18:04 Blood Pressure 172/97 07/15/20 18:04 O2 Sat by Pulse Oximetry 97 07/15/20 18:04 Pain Scale Pain Intensity 8 - Physical Exam General Appearance: no apparent distress, alert Eye Exam: PERRL/EOMI Neck Exam: normal inspection, supple Respiratory Exam: wheezing, No respiratory distress, No accessory muscle use Cardiovascular/Chest Exam: normal heart sounds, regular rate/rhythm Abdominal/Gastrointestinal Exam: soft, No tenderness, No distention, No mass Extremity Exam: non-tender, normal range of motion, normal inspection, no calf tenderness, no pedal edema Neurologic Exam: alert, oriented x 3, cooperative, pot fisher II-XII nml as tested, sensation nml, No motor deficits Skin Exam: normal color, warm, No dry SpO2 Interpretation: normal SpO2: 96 O2 Delivery: Room Air - Course Nursing assessment & vital signs reviewed: Yes EKG Interpreted by Me: RATE (82), Sinus Rhythm, NORMAL AXIS, NORMAL INTERVALS - Radiology Exams Chest X-ray Interpretation: Interpreted by me (No acute pathology observed. No pneumonia no pneumothorax normal bony thorax.) - CT Exams Chest CT Interpretation: Tele-radiologist Report (Negative for PE. Stable hiatal hernia and fatty liver. A few bilateral renal cysts) Ordered Tests: Active Orders 24 hr Category Date Time Status Environmental Health Inspector STAT Care 07/15/20 18:27 Active EKG-ER Only STAT Care 07/15/20 18:26 Active IV Insertion STAT Care 07/15/20 18:26 Active Pulse Oximetry (ED) STAT Care 07/15/20 18:26 Active CHEST 1 VIEW (PORTABLE) Stat Exams 07/15/20 18:26 Taken CHEST WITH CONTRAST [CT] Stat Exams 07/15/20 19:59 Taken BLOOD CULTURE Stat Lab 07/15/20 19:00 Received CBC W DIFF Stat Lab 07/15/20 18:15 Completed CMP Stat Lab 07/15/20 18:15 Completed D-DIMER QUANTITATIVE Stat Lab 07/15/20 18:15 Completed MAGNESIUM Stat Lab 07/15/20 18:15 Completed NT PRO BNP Stat Lab 07/15/20 18:15 Completed TROPONIN Q3H Lab 07/15/20 18:45 Completed TROPONIN Q3H Lab 07/15/20 21:35 Received TROPONIN Q3H Lab 07/16/20 00:30 Ordered TROPONIN Q3H Lab 07/16/20 03:30 Ordered TROPONIN Q3H Lab 07/16/20 06:30 Ordered Peak Expiratory Flow Rate ONCE RT 07/15/20 18:41 Active Respiratory Therapy Assessment DAILY RT 07/15/20 18:36 Active Transfer Order Routine Transfer 07/15/20 Ordered Medication Summary Generic Name Dose Route Start Last Admin Trade Name Freq PRN Reason Stop Dose Admin Azithromycin 500 mg in 250 mls @ 250 mls/hr 07/15/20 21:10 07/15/20 21:30 Zithromax 500 Mg/ 250 Ml Nacl Premix IV 07/15/20 22:09 250 mls/hr STAT ONE Administration Discontinued Medications Generic Name Dose Route Start Last Admin Trade Name Freq PRN Reason Stop Dose Admin Albuterol/Ipratropium 3 ml 07/15/20 18:28 07/15/20 18:33 Duoneb 0.5-3 Mg/3 Ml Neb IH 07/15/20 18:29 3 ml STAT ONE Administration Albuterol/Ipratropium Confirm 07/15/20 18:31 Duoneb 0.5-3 Mg/3 Ml Neb Administered 07/15/20 18:32 Dose 3 ml IH .STK-MED ONE Aspirin 324 mg 07/15/20 21:05 07/15/20 21:09 Baby Aspirin 81 Mg Chew PO 07/15/20 21:06 324 mg STAT ONE Administration Aspirin Confirm 07/15/20 21:08 Baby Aspirin 81 Mg Chew Administered 07/15/20 21:09 Dose 324 mg .ROUTE .STK-MED ONE Ceftriaxone Sodium/Dextrose 1 g in 50 mls @ 100 mls/hr 07/15/20 21:09 0 21:26 Rocephin 1 Gm-D5w 50 Ml Bag IV 07/15/20 21:38 100 ml/hr STAT STA 100 mls/hr Administration Azithromycin Confirm 07/15/20 21:20 Zithromax 500 Mg/ 250 Ml Nacl Premix Administered 07/15/20 21:21 Dose 500 mg in 250 mls @ ud IV .STK-MED ONE Ceftriaxone Sodium/Dextrose Confirm 07/15/20 21:20 Rocephin 1 Gm-D5w 50 Ml Bag Administered 07/15/20 21:21 Dose 1 g in 50 mls @ ud IV .STK-MED ONE Ketorolac Tromethamine 30 mg 07/15/20 21:05 07/15/20 21:10 Toradol 30 Mg Injection IV 07/15/20 21:06 30 mg STAT ONE Administration Ketorolac Tromethamine Confirm 07/15/20 21:08 Toradol 30 Mg Injection Administered 07/15/20 21:09 Dose 30 mg .ROUTE .STK-MED ONE Methylprednisolone Sodium Succinate 125 mg 07/15/20 18:32 07/15/20 18:37 Solu-Medrol 125 Mg IV 07/15/20 18:33 125 mg STAT ONE Administration Methylprednisolone Sodium Succinate Confirm 07/15/20 18:35 Solu-Medrol 125 Mg Administered 07/15/20 18:36 Dose 125 mg .ROUTE .STK-MED ONE Nitroglycerin 1 gm 07/15/20 21:06 07/15/20 21:10 Nitro-Bid 2% Ud Packets TOP 07/15/20 21:07 1 gm STAT ONE Administration Nitroglycerin Confirm 07/15/20 21:08 Nitro-Bid 2% Ud Packets Administered 07/15/20 21:09 Dose 1 gm .ROUTE .STK-MED ONE Lab/Rad Data: Laboratory Result Diagrams 07/15/20 18:15 07/15/20 18:15 Laboratory Results 07/15/20 07/15/20 07/15/20 Range/Units 18:45 18:15 18:15 WBC (4.0-10.5) K/mm3 RBC (4.1-5.4) M/mm3 Hgb (12.0-16.0) gm/dl Hct (35-47) % MCV (78-100) fl MCH (26-32) pg MCHC (32-36) g/dl RDW (11.5-14.0) % Plt Count (150-450) K/mm3 MPV (7.5-11.0) fl Gran % (36.0-66.0) % Eos # (Auto) (0-0.5) Absolute Lymphs (auto) (1.0-4.6) Absolute Monos (auto) (0.0-1.3) Lymphocytes % (24.0-44.0) % Monocytes % (0.0-12.0) % Eosinophils % (0.00-5.0) % Basophils % (0.0-0.4) % Absolute Granulocytes (1.4-6.9) Basophils # (0-0.4) D-Dimer 527 H* (215-500) ng/mL Sodium 134 L (137-145) mmol/L Potassium 4.2 (3.5-5.1) mmol/L Chloride 105 (98-107) mmol/L Carbon Dioxide 21 L (22-30) mmol/L Anion Gap 12.0 (5-15) MEQ/L BUN 10 (7-17) mg/dL Creatinine 0.63 (0.52-1.04) mg/dL Estimated GFR > 60.0 ML/MIN Glucose 98 (74-106) mg/dL Calcium 8.9 (8.4-10.2) mg/dL Magnesium 2.0 (1.6-2.3) mg/dL Total Bilirubin 0.50 (0.2-1.3) mg/dL AST 41 H (14-36) U/L ALT 28 (0-35) U/L Alkaline Phosphatase 77 (38-126) U/L Troponin I < 0.012 (0.000-0.034) ng/mL NT-Pro-B Natriuret Pep 270 (0-900) pg/mL Serum Total Protein 7.1 (6.3-8.2) g/dL Albumin 3.8 (3.5-5.0) g/dL 07/15/ Range/Units 18:15 WBC 7.6 (4.0-10.5) K/mm3 RBC 3.97 L (4.1-5.4) M/mm3 Hgb 12.1 (12.0-16.0) gm/dl Hct 37.6 (35-47) % MCV 94.7 (78-100) fl MCH 30.5 (26-32) pg MCHC 32.2 (32-36) g/dl RDW 12.3 (11.5-14.0) % Plt Count 219 (150-450) K/mm3 MPV 11.9 H (7.5-11.0) fl Gran % 54.6 (36.0-66.0) % Eos # (Auto) 0.43 (0-0.5) Absolute Lymphs (auto) 2.24 (1.0-4.6) Absolute Monos (auto) 0.77 (0.0-1.3) Lymphocytes % 29.4 (24.0-44.0) % Monocytes % 10.1 (0.0-12.0) % Eosinophils % 5.6 H (0.00-5.0) % Basophils % 0.3 (0.0-0.4) % Absolute Granulocytes 4.17 (1.4-6.9) Basophils # 0.02 (0-0.4) D-Dimer (215-500) ng/mL Sodium (137-145) mmol/L Potassium (3.5-5.1) mmol/L Chloride (98-107) mmol/L Carbon Dioxide (22-30) mmol/L Anion Gap (5-15) MEQ/L BUN (7-17) mg/dL Creatinine (0.52-1.04) mg/dL Estimated GFR ML/MIN Glucose (74-106) mg/dL Calcium (8.4-10.2) mg/dL Magnesium (1.6-2.3) mg/dL Total Bilirubin (0.2-1.3) mg/dL AST (14-36) U/L ALT (0-35) U/L Alkaline Phosphatase (38-126) U/L Troponin I (0.000-0.034) ng/mL NT-Pro-B Natriuret Pep (0-900) pg/mL Serum Total Protein (6.3-8.2) g/dL Albumin (3.5-5.0) g/dL - Progress Progress: improved Air Movement: good Progress Note: 07/15/20 22:00 Reassessed. Wheezing resolved. Shortness of breath improved. First troponin negative. Vitals stable. In light of patient's cardiac history will admit for cardiac rule out. Would also continue to treat COPD exacerbation. Case discussed with Dr. Olsen admission to observation. Plan of care discussed with patient. She agrees to admission to [facility] for further evaluation and treatment. Blood Culture(s) Obtained: Yes Antibiotics given: Yes Discussed with : Dao Counseled pt/family regarding: lab results, diagnosis, rad results - Departure Departure Disposition: Observation Clinical Impression: Chest pain, COPD exacerbation, Wheezing, Renal cyst, Fatty liver Condition: Stable Critical Care Time: No Referrals: JERE LEONG [Primary Care Provider] - Instructions: Chronic Obstructive Pulmonary Disease
[2020-07-15] MEDS ORDERED: BABY ASPIRIN 81 MG CHEW PO ONE (21:05)
[2020-07-15] MEDS ORDERED: TORAdol 30 mg Injection IV ONE (21:05)
[2020-07-15] MEDS ORDERED: NITRO-BID 2% UD PACKETS TOP ONE (21:06)
[2020-07-15] MEDS ORDERED: BABY ASPIRIN 81 MG CHEW ONE (21:08)
[2020-07-15] MEDS ORDERED: TORAdol 30 mg Injection ONE (21:08)
[2020-07-15] MEDS ORDERED: NITRO-BID 2% UD PACKETS ONE (21:08)
[2020-07-15] MEDS ORDERED: ROCEPHIN 1 Gm-D5w 50 ml Bag** 1 G/50 ML IVPB IV STA (21:09)
[2020-07-15] MEDS ORDERED: Zithromax 500 MG/ 250 ML NaCl Premix 500 MG/250 ML IVPB IV ONE ×2 (21:10→21:20)
[2020-07-15] MEDS ORDERED: ROCEPHIN 1 Gm-D5w 50 ml Bag** 1 G/50 ML IVPB IV ONE (21:20)
[2020-07-16] MEDS ORDERED: PROVENTIL 2.5 MG/3 ML NEB IH ONE (00:06)
[2020-07-16] MEDS: PROVENTIL 2.5 MG/3 ML NEB IH SCH ×4 (00:12→19:15)
[2020-07-16] MEDS: TYLENOL 325 MG PO PRN ×3 (00:57→13:58)
[2020-07-16 04:23] LABS: ALBUMIN 3.7 g/dL (3.5-5.0); ALKALINE PHOSPHATASE 82 U/L (38-126); ANION GAP 12.6 MEQ/L (5-15); BLOOD UREA NITROGEN 12 mg/dL (7-17); CHLORIDE 104 mmol/L (98-107); Calcium 9.1 mg/dL (8.4-10.2); Carbon Dioxide 21 mmol/L (22-30); Creatinine 1 0.66 mg/dL (0.52-1.04); EST GLOMERULAR FILTRATION RATE > 60.0 ML/MIN; Glucose 200 mg/dL (74-106); Potassium 4.4 mmol/L (3.5-5.1); SGOT/AST 28 U/L (14-36); SGPT/ALT 26 U/L (0-35); SODIUM 133 mmol/L (137-145); Total Protein 6.8 g/dL (6.3-8.2)
[2020-07-16 04:24] LABS: TROPONIN < 0.012 ng/mL (0.000-0.034)
[2020-07-16 05:03] LABS: Hematocrit 38.2 % (35-47); Hemoglobin 12.3 gm/dl (12.0-16.0); Mean Cell Volume 93.6 fl (78-100); Mean Corpuscular Hemoglobin 30.1 pg (26-32); Mean Corpuscular Hgb Concent. 32.2 g/dl (32-36); Mean Platelet Volume 12.4 fl (7.5-11.0); Platelet Count 233 K/mm3 (150-450); Red Blood Count 4.08 M/mm3 (4.1-5.4); Red Cell Distribution Width 12.2 % (11.5-14.0); White Blood Count 8.6 K/mm3 (4.0-10.5)
--- NOTE | 2020-07-16 08:56 | XRAY ---
Indication: Short of breath. COPD. Elevated d-dimer. Multiple contiguous axial images obtained through the chest using 80 cc Isovue 370 contrast and PE protocol. Comparison: February 22, 2018. There is good opacification of the pulmonary arteries to include the lobar and segmental branches. No pulmonary embolus. Heart is not enlarged. Aorta is normal in course and caliber. No pathologic mediastinal/hilar lymphadenopathy. Stable small hiatal hernia. Lungs are inflated with minimal lingula and left base subsegmental atelectasis/scarring. No suspicious pulmonary mass, infiltrate, or effusion. Bony thorax intact with mild degenerative changes throughout the spine. Limited upper abdomen again demonstrates fatty liver. Also a few bilateral renal cysts not previously imaged, largest right midpole measuring 2.4 cm. Impression: 1. Continued negative for pulmonary embolus. No new or acute cardiopulmonary abnormalities. 2. Incidental small hiatal hernia, fatty liver, and bilateral renal cysts.
--- NOTE | 2020-07-16 08:58 | XRAY ---
Indication: Chest pain and pressure. Comparison: March 21, 2020. Portable chest again demonstrates normal heart and lungs. Bony thorax intact again with mild degenerative changes. No new/acute findings.
[2020-07-16 09:28] LABS: Appearance SLIGHTLY CLOUDY (CLEAR); Bacteria RARE /HPF (NEGATIVE); Bilirubin NEGATIVE (NEGATIVE); Blood NEGATIVE Ery/ul (0-5); Epithelial Cells RARE /HPF (FEW); Glucose 150 mg/dL (NEGATIVE); Ketones TRACE (NEGATIVE); Leukocyte Esterase SMALL (NEGATIVE); Mucus SLIGHT /HPF (NEGATIVE); Nitrite NEGATIVE (NEGATIVE); Protein,Urine Dip 30 (Negative); Specific Gravity 1.053 (1.005-1.025); Urobilinogen NEGATIVE mg/dL (0-1)
[2020-07-16] MEDS: Nitrostat 0.4 MG Tablet SL PRN ×2 (10:55→11:01)
[2020-07-16] MEDS ORDERED: Ventolin Hfa MDI IH PRN (11:15)
[2020-07-16] MEDS ORDERED: ANTIVERT 25 MG PO PRN (11:15)
[2020-07-16] MEDS ORDERED: DUONEB 0.5-3 MG/3 ml Neb IH PRN (11:15)
[2020-07-16] MEDS ORDERED: NEURONTIN 300 MG PO PRN (11:15)
[2020-07-16] MEDS ORDERED: VENTOLIN COMMON CANISTER IH PRN (11:22)
[2020-07-16] MEDS ORDERED: MEDICATION INTERVENTION PO SCH (11:30)
[2020-07-16] MEDS: Coreg 6.25 MG PO SCH ×2 (11:34→21:05)
[2020-07-16] MEDS: Prozac 20 MG PO SCH (11:34)
[2020-07-16] MEDS: Glucotrol Xl 2.5 MG PO SCH (11:35)
[2020-07-16] MEDS: Protonix 20MG Tablet PO SCH (11:49)
--- NOTE | 2020-07-16 12:16 | PCM.HP ---
History of Present Illness - Chief Complaint Chief Complaint: chest pain and short of breath for 2-3 days History of Present Illness: is a 55-year-old female who presents to our ED with complaints of chest pain and shortness of breath. Symptoms started approximately 2 days ago. Patient states her chest pain tends to radiate to her back. No trauma. No fever. No nausea or vomiting. No diaphoresis. Pain is rated 5 out of 10. However she experiences acute intermittent bouts of pain rated 10 out of 10 no nausea vomiting or diaphoresis. Symptoms are mild to moderate in intensity. No specific worsening or improving factors. Patient does have a history of emphysema. Audible wheezing observed. Patient voiced no other complaints concerns at this time. Timing/Duration: day(s) (2) Activities at Onset: none Severity of Dyspnea-Max: moderate Severity of Dyspnea-Current: mild Possible Cause: occasional episodes Modifying Factors: Improves With: nothing Associated Symptoms: denies symptoms, No intermittent, No anxiety, No cough, No chest pain/discomfort, No edema, No fever, No insomnia, No loss of appetite, No lightheadedness, No wheezing, No weakness, No ankle swelling, No chills, No hemoptysis, No calf pain, No dizziness, No lightheadedness, No leg swelling, No muscle spasms feet, No muscle spasms hands, No painful breathing - Review of Systems Constitutional: No Fever, No Chills Eyes: No Symptoms Ears, Nose, & Throat: No Symptoms Respiratory: Cough, Orthopnea, Short Of Breath Cardiac: Chest Pain, No Edema, No Syncope Abdominal/Gastrointestinal: No Abdominal Pain, No Nausea, No Vomiting, No Diarrhea Genitourinary Symptoms: No Dysuria Musculoskeletal: No Back Pain, No Neck Pain Skin: No Rash Neurological: No Dizziness, No Focal Weakness, No Sensory Changes Psychological: No Symptoms Endocrine: No Symptoms Hematologic/Lymphatic: No Symptoms Immunological/Allergic: No Symptoms Medications & Allergies Home Medications: Home Medication List Albuterol Sulfate [Ventolin Hfa] 8 gm IH Q6-8HPRN PRN 02/21/18 [History Confirmed 07/16/20] Meclizine HCl 25 mg [Antivert 25 mg] 25 mg PO BID PRN PRN 02/21/18 [History Confirmed 07/16/20] Ropinirole HCl [Requip] 1 mg PO HS 02/21/18 [History Confirmed 07/16/20] carvediloL [Carvedilol] 6.25 mg PO BID 02/22/18 [History Confirmed 07/15/20] Albuterol/Ipratropium 3ml Neb* [DUONEB 0.5-3 MG/3 ml Neb] 3 ml NEBULIZE Q4H PRN PRN #1 box 09/16/19 [Rx Confirmed 07/16/20] Fluoxetine HCl 20 mg [Prozac 20 MG] 20 mg PO DAILY 07/15/20 [History Confirmed 07/16/20] Gabapentin 300 mg PO HS PRN PRN 07/15/20 [History Confirmed 07/16/20] Glipizide [Glipizide ER] 2.5 mg PO DAILY 07/15/20 [History Confirmed 07/16/20] Metformin HCl 500 mg [Glucophage 500 MG] 500 mg PO BIDWM 07/15/20 [History Confirmed 07/16/20] Prazosin HCl 1 mg PO HS 07/15/20 [History Confirmed 07/16/20] Omeprazole Magnesium [Prilosec Otc] 20 mg PO DAILY 07/16/20 [History Confirmed 07/16/20] Allergies/Adverse Reactions: Allergies Allergy/AdvReac Type Severity Reaction Status Date / Time morphine Allergy Verified 07/15/20 18:03 levofloxacin [From Levaquin] AdvReac Intermediate Verified 07/15/20 18:03 - Past Medical History Past Medical History: Yes Neurological History: Seizures ENT History: Cataracts Cardiac History: High Cholesterol, Hypertension, Other Respiratory History: Asthma, Bronchitis, COPD Endocrine Medical History: Diabetes Type II, Other Musculoskelatal History: Arthritis, Osteoarthritis GI Medical History: GERD History: No Pertinent History Pyscho-Social History: Anxiety, Depression Reproductive Disorders: No Pertinent History Comment: 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 LEAKING HEART VALVE - Female History Are you now?: No - Past Surgical History Past Surgical History: Yes Neuro Surgical History: No Pertinent History Cardiac History: Angioplasty, Cardiac Catheterization Respiratory Surgery: No Pertinent History GI Surgical History: Cholecystectomy Genitourinary Surgical Hx: No Pertinent History Musculskeletal Surgical Hx: No Pertinent History, Orthopedic Surgery Female Surgical History: Tubal Ligation Other Surgical History: HEART CATH, left rotator cuff in oct 2015. "leaky heart valve"; right thumb surgery - Social History Smoking Status: Former smoker How long have you smoked: 6 YEARS Exposure to second hand smoke: No Alcohol: Rarely Drug Use: none Significant Family History: no pertinent family hx - Physical Exam Vital Signs: Vital Signs - 24 hr Temp Pulse Resp BP BP Pulse Ox 07/16/20 11:01 85 116/64 07/16/20 10:55 87 115/67 07/16/20 07:40 98.1 F 80 18 123/71 94 L 07/16/20 07:19 86 16 95 07/16/20 04:00 97.9 F 77 20 140/66 98 07/16/20 00:12 81 18 95 07/15/20 23:37 97.9 F 80 19 141/70 95 07/15/20 22:44 80 18 136/87 95 07/15/20 22:01 96 07/15/20 21:10 88 18 156/87 95 07/15/20 20:24 85 14 169/91 96 07/15/20 19:13 83 19 136/52 97 07/15/20 18:33 77 18 100 07/15/20 18:04 98.1 F 78 22 172/97 99 General Appearance: no apparent distress, alert Neurologic Exam: alert, oriented x 3, cooperative, normal mood/affect, nml cerebellar function, nml station & gait, sensation nml, No motor deficits Eye Exam: PERRL/EOMI, eyes nml inspection Ears, Nose, Throat Exam: normal ENT inspection, TMs normal, pharynx normal, moist mucous membranes Neck Exam: normal inspection, non-tender, supple, full range of motion Respiratory Exam: normal breath sounds, lungs clear, No respiratory distress Cardiovascular Exam: regular rate/rhythm, normal heart sounds, normal peripheral pulses Gastrointestinal/Abdomen Exam: soft, normal bowel sounds, No tenderness, No mass Back Exam: normal inspection, normal range of motion, No CVA tenderness, No vertebral tenderness Extremity Exam: normal inspection, normal range of motion, pelvis stable Skin Exam: normal color, warm, dry, No rash Lymphatic Exam: No adenopathy Results - Labs Lab/Micro Results: Lab Results-Last 24 Hours 07/15/20 07/15/20 07/15/20 Range/Units 18:15 18:15 18:15 WBC 7.6 (4.0-10.5) K/mm3 RBC 3.97 L (4.1-5.4) M/mm3 Hgb 12.1 (12.0-16.0) gm/dl Hct 37.6 (35-47) % MCV 94.7 (78-100) fl MCH 30.5 (26-32) pg MCHC 32.2 (32-36) g/dl RDW 12.3 (11.5-14.0) % Plt Count 219 (150-450) K/mm3 MPV 11.9 H (7.5-11.0) fl Gran % 54.6 (36.0-66.0) % Eos # (Auto) 0.43 (0-0.5) Absolute Lymphs (auto) 2.24 (1.0-4.6) Absolute Monos (auto) 0.77 (0.0-1.3) Lymphocytes % 29.4 (24.0-44.0) % Monocytes % 10.1 (0.0-12.0) % Eosinophils % 5.6 H (0.00-5.0) % Basophils % 0.3 (0.0-0.4) % Absolute Granulocytes 4.17 (1.4-6.9) Basophils # 0.02 (0-0.4) D-Dimer 527 H* (215-500) ng/mL Sodium 134 L (137-145) mmol/L Potassium 4.2 (3.5-5.1) mmol/L Chloride 105 (98-107) mmol/L Carbon Dioxide 21 L (22-30) mmol/L Anion Gap 12.0 (5-15) MEQ/L BUN 10 (7-17) mg/dL Creatinine 0.63 (0.52-1.04) mg/dL Estimated GFR > 60.0 ML/MIN Glucose 98 (74-106) mg/dL Calcium 8.9 (8.4-10.2) mg/dL Magnesium 2.0 (1.6-2.3) mg/dL Total Bilirubin 0.50 (0.2-1.3) mg/dL AST 41 H (14-36) U/L ALT 28 (0-35) U/L Alkaline Phosphatase 77 (38-126) U/L Troponin I (0.000-0.034) ng/mL NT-Pro-B Natriuret Pep 270 (0-900) pg/mL Serum Total Protein 7.1 (6.3-8.2) g/dL Albumin 3.8 (3.5-5.0) g/dL Urine Color (YELLOW) Urine Appearance (CLEAR) Urine pH (5-6) Ur Specific [place] (1.005-1.025) Urine Protein (Negative) Urine Ketones (NEGATIVE) Urine Blood (0-5) Stu/ul Urine Nitrite (NEGATIVE) Urine Bilirubin (NEGATIVE) Urine Urobilinogen (0-1) mg/dL Ur Leukocyte Esterase (NEGATIVE) Urine WBC (Auto) (0-5) /HPF Urine RBC (Auto) (0-2) /HPF U Epithel Cells (Auto) (FEW) /HPF Urine Bacteria (Auto) (NEGATIVE) /HPF Urine Mucus (Auto) (NEGATIVE) /HPF Urine Culture Reflexed (NO) Urine Glucose (NEGATIVE) mg/dL SARS-CoV-2 (PCR) (NEGATIVE) 07/15/20 07/15/20 07/15/20 Range/Units 18:45 21:30 21:35 WBC (4.0-10.5) K/mm3 RBC (4.1-5.4) M/mm3 Hgb (12.0-16.0) gm/dl Hct (35-47) % MCV (78-100) fl MCH (26-32) pg MCHC (32-36) g/dl RDW (11.5-14.0) % Plt Count (150-450) K/mm3 MPV (7.5-11.0) fl Gran % (36.0-66.0) % Eos # (Auto) (0-0.5) Absolute Lymphs (auto) (1.0-4.6) Absolute Monos (auto) (0.0-1.3) Lymphocytes % (24.0-44.0) % Monocytes % (0.0-12.0) % Eosinophils % (0.00-5.0) % Basophils % (0.0-0.4) % Absolute Granulocytes (1.4-6.9) Basophils # (0-0.4) D-Dimer (215-500) ng/mL Sodium (137-145) mmol/L Potassium (3.5-5.1) mmol/L Chloride (98-107) mmol/L Carbon Dioxide (22-30) mmol/L Anion Gap (5-15) MEQ/L BUN (7-17) mg/dL Creatinine (0.52-1.04) mg/dL Estimated GFR ML/MIN Glucose (74-106) mg/dL Calcium (8.4-10.2) mg/dL Magnesium (1.6-2.3) mg/dL Total Bilirubin (0.2-1.3) mg/dL AST (14-36) U/L ALT (0-35) U/L Alkaline Phosphatase (38-126) U/L Troponin I < 0.012 < 0.012 (0.000-0.034) ng/mL NT-Pro-B Natriuret Pep (0-900) pg/mL Serum Total Protein (6.3-8.2) g/dL Albumin (3.5-5.0) g/dL Urine Color (YELLOW) Urine Appearance (CLEAR) Urine pH (5-6) Ur Specific [place] (1.005-1.025) Urine Protein (Negative) Urine Ketones (NEGATIVE) Urine Blood (0-5) Stu/ul Urine Nitrite (NEGATIVE) Urine Bilirubin (NEGATIVE) Urine Urobilinogen (0-1) mg/dL Ur Leukocyte Esterase (NEGATIVE) Urine WBC (Auto) (0-5) /HPF Urine RBC (Auto) (0-2) /HPF U Epithel Cells (Auto) (FEW) /HPF Urine Bacteria (Auto) (NEGATIVE) /HPF Urine Mucus (Auto) (NEGATIVE) /HPF Urine Culture Reflexed (NO) Urine Glucose (NEGATIVE) mg/dL SARS-CoV-2 (PCR) NEGATIVE (NEGATIVE) 07/16/20 07/16/20 07/16/20 Range/Units 01:00 03:43 03:43 WBC 8.6 (4.0-10.5) K/mm3 RBC 4.08 L (4.1-5.4) M/mm3 Hgb 12.3 (12.0-16.0) gm/dl Hct 38.2 (35-47) % MCV 93.6 (78-100) fl MCH 30.1 (26-32) pg MCHC 32.2 (32-36) g/dl RDW 12.2 (11.5-14.0) % Plt Count 233 (150-450) K/mm3 MPV 12.4 H (7.5-11.0) fl Gran % (36.0-66.0) % Eos # (Auto) (0-0.5) Absolute Lymphs (auto) (1.0-4.6) Absolute Monos (auto) (0.0-1.3) Lymphocytes % (24.0-44.0) % Monocytes % (0.0-12.0) % Eosinophils % (0.00-5.0) % Basophils % (0.0-0.4) % Absolute Granulocytes (1.4-6.9) Basophils # (0-0.4) D-Dimer (215-500) ng/mL Sodium 133 L (137-145) mmol/L Potassium 4.4 (3.5-5.1) mmol/L Chloride 104 (98-107) mmol/L Carbon Dioxide 21 L (22-30) mmol/L Anion Gap 12.6 (5-15) MEQ/L BUN 12 (7-17) mg/dL Creatinine 0.66 (0.52-1.04) mg/dL Estimated GFR > 60.0 ML/MIN Glucose 200 H (74-106) mg/dL Calcium 9.1 (8.4-10.2) mg/dL Magnesium (1.6-2.3) mg/dL Total Bilirubin 0.40 (0.2-1.3) mg/dL AST 28 (14-36) U/L ALT 26 (0-35) U/L Alkaline Phosphatase 82 (38-126) U/L Troponin I < 0.012 < 0.012 (0.000-0.034) ng/mL NT-Pro-B Natriuret Pep (0-900) pg/mL Serum Total Protein 6.8 (6.3-8.2) g/dL Albumin 3.7 (3.5-5.0) g/dL Urine Color (YELLOW) Urine Appearance (CLEAR) Urine pH (5-6) Ur Specific [place] (1.005-1.025) Urine Protein (Negative) Urine Ketones (NEGATIVE) Urine Blood (0-5) Stu/ul Urine Nitrite (NEGATIVE) Urine Bilirubin (NEGATIVE) Urine Urobilinogen (0-1) mg/dL Ur Leukocyte Esterase (NEGATIVE) Urine WBC (Auto) (0-5) /HPF Urine RBC (Auto) (0-2) /HPF U Epithel Cells (Auto) (FEW) /HPF Urine Bacteria (Auto) (NEGATIVE) /HPF Urine Mucus (Auto) (NEGATIVE) /HPF Urine Culture Reflexed (NO) Urine Glucose (NEGATIVE) mg/dL SARS-CoV-2 (PCR) (NEGATIVE) 07/16/20 07/16/20 Range/Units 06:45 09:13 WBC (4.0-10.5) K/mm3 RBC (4.1-5.4) M/mm3 Hgb (12.0-16.0) gm/dl Hct (35-47) % MCV (78-100) fl MCH (26-32) pg MCHC (32-36) g/dl RDW (11.5-14.0) % Plt Count (150-450) K/mm3 MPV (7.5-11.0) fl Gran % (36.0-66.0) % Eos # (Auto) (0-0.5) Absolute Lymphs (auto) (1.0-4.6) Absolute Monos (auto) (0.0-1.3) Lymphocytes % (24.0-44.0) % Monocytes % (0.0-12.0) % Eosinophils % (0.00-5.0) % Basophils % (0.0-0.4) % Absolute Granulocytes (1.4-6.9) Basophils # (0-0.4) D-Dimer (215-500) ng/mL Sodium (137-145) mmol/L Potassium (3.5-5.1) mmol/L Chloride (98-107) mmol/L Carbon Dioxide (22-30) mmol/L Anion Gap (5-15) MEQ/L BUN (7-17) mg/dL Creatinine (0.52-1.04) mg/dL Estimated GFR ML/MIN Glucose (74-106) mg/dL Calcium (8.4-10.2) mg/dL Magnesium (1.6-2.3) mg/dL Total Bilirubin (0.2-1.3) mg/dL AST (14-36) U/L ALT (0-35) U/L Alkaline Phosphatase (38-126) U/L Troponin I < 0.012 (0.000-0.034) ng/mL NT-Pro-B Natriuret Pep (0-900) pg/mL Serum Total Protein (6.3-8.2) g/dL Albumin (3.5-5.0) g/dL Urine Color YELLOW (YELLOW) Urine Appearance SLIGHTLY CLOUDY (CLEAR) Urine pH 5.0 (5-6) Ur Specific [place] 1.053 (1.005-1.025) Urine Protein 30 (Negative) Urine Ketones TRACE (NEGATIVE) Urine Blood NEGATIVE (0-5) Stu/ul Urine Nitrite NEGATIVE (NEGATIVE) Urine Bilirubin NEGATIVE (NEGATIVE) Urine Urobilinogen NEGATIVE (0-1) mg/dL Ur Leukocyte Esterase SMALL (NEGATIVE) Urine WBC (Auto) 3-5 (0-5) /HPF Urine RBC (Auto) NONE (0-2) /HPF U Epithel Cells (Auto) RARE (FEW) /HPF Urine Bacteria (Auto) RARE (NEGATIVE) /HPF Urine Mucus (Auto) SLIGHT (NEGATIVE) /HPF Urine Culture Reflexed YES (NO) Urine Glucose 150 (NEGATIVE) mg/dL SARS-CoV-2 (PCR) (NEGATIVE) - Radiology Impressions Radiology Exams & Impressions: Radiology Procedures Category Date Time Status CHEST 1 VIEW (PORTABLE) Stat Exams 07/15/20 18:26 Completed CHEST WITH CONTRAST [CT] Stat Exams 07/15/20 19:59 Completed - Other Procedures and Tests Respiratory Therapy 07/16/20 00:13 Peak Expiratory Flow Rate DAILY Respiratory Therapy Assessment DAILY Assessment/Plan (1) COPD exacerbation Current Visit: Yes Status: Acute Assessment & Plan: Chief Complaint Diagnosis COPD exacerbation Allergies Allergy/AdvReac Type Severity Reaction Status Date / Time morphine Allergy Verified 07/15/20 18:03 levofloxacin [From Levaquin] AdvReac Intermediate Verified 07/15/20 18:03 Vital Signs (Last 24 hours) Temp Pulse Resp BP BP Pulse Ox 07/16/20 11:01 85 116/64 07/16/20 10:55 87 115/67 07/16/20 07:40 98.1 F 80 18 123/71 94 L 07/16/20 07:19 86 16 95 07/16/20 04:00 97.9 F 77 20 140/66 98 07/16/20 00:12 81 18 95 08/25/20 23:37 97.9 F 80 19 141/70 95 07/15/20 22:44 80 18 136/87 95 07/15/20 22:01 96 07/15/20 21:10 88 18 156/87 95 07/15/20 20:24 85 14 169/91 96 07/15/20 19:13 83 19 136/52 97 07/15/20 18:33 77 18 100 07/15/20 18:04 98.1 F 78 22 172/97 99 Home Medications Medication Instructions Recorded Confirmed Last Taken Type Fluoxetine HCl 20 mg [Prozac 20 20 mg PO DAILY 07/15/20 07/16/20 07/15/20 History MG] Gabapentin 300 mg PO HS PRN PRN 07/15/20 07/16/20 Unknown History Glipizide [Glipizide ER] 2.5 mg PO DAILY 07/15/20 07/16/20 07/15/20 History Metformin HCl 500 mg 500 mg PO BIDWM 07/15/20 07/16/20 07/15/20 History [Glucophage 500 MG] Prazosin HCl 1 mg PO HS 07/15/20 07/16/20 07/14/20 History Omeprazole Magnesium [Prilosec Otc] 20 mg PO DAILY 07/16/20 07/16/20 Unknown History Current Medications Generic Name Dose Route Start Last Admin Trade Name Freq PRN Reason Stop Dose Admin Acetaminophen 650 mg 07/16/20 00:55 07/16/20 06:36 Tylenol 325 Mg PO 08/15/20 00:54 650 mg Q4H PRN PRN Administration PAIN AND/OR FEVER Albuterol Sulfate 2.5 mg 07/16/20 01:00 07/16/20 07:16 Proventil 2.5 Mg/3 Ml Neb IH 08/15/20 00:59 2.5 mg Q6HRT ARSH Administration Albuterol Sulfate 2 puff 07/16/20 11:22 Ventolin Common Canister 08/15/20 11:21 Q6H PRN PRN SHORTNESS OF BREATH Albuterol/Ipratropium 3 ml 07/16/20 11:15 Duoneb 0.5-3 Mg/3 Ml Neb IH 08/15/20 11:14 Q4H PRN PRN Wheezing/Chest Congestion Carvedilol 6.25 mg 07/16/20 12:00 07/16/20 11:34 Coreg 6.25 Mg PO 08/15/20 11:59 6.25 mg BID ARSH Administration Fluoxetine HCl 20 mg 07/16/20 12:00 07/16/20 11:34 Prozac 20 Mg PO 08/15/20 11:59 20 mg DAILY ARSH Administration Gabapentin 300 mg 07/16/20 11:15 Neurontin 300 Mg PO 08/15/20 11:14 HS PRN PRN MODERATE PAIN Glipizide 2.5 mg 07/16/20 12:00 07/16/20 11:35 Glucotrol Xl 2.5 Mg PO 08/15/20 11:59 2.5 mg DAILY ARSH Administration Meclizine HCl 25 mg 07/16/20 11:15 Antivert 25 Mg PO 08/15/20 11:14 BID PRN PRN DIZZINESS Miscellaneous Information 1 each 07/16/20 11:30 Medication Intervention PO 08/15/20 11:29 .RN TO CHECK ON ARSH Nitroglycerin 0.4 mg 07/16/20 10:47 07/16/20 11:01 Nitrostat 0.4 Mg Tablet SL 08/15/20 10:46 0.4 mg Q5MIN PRN MR X 3 PRN Administration CHEST PAIN Pantoprazole Sodium 20 mg 07/16/20 12:00 07/16/20 11:49 Protonix 20mg Tablet PO 08/15/20 11:59 20 mg DAILY ARSH Administration Ropinirole HCl 1 mg 07/16/20 22:00 Requip 0.5 Mg PO 08/15/20 21:59 HS ARSH Discontinued Medications Generic Name Dose Route Start Last Admin Trade Name Freq PRN Reason Stop Dose Admin Albuterol Sulfate Confirm 07/16/20 00:06 Proventil 2.5 Mg/3 Ml Neb Administered 07/16/20 00:07 Dose 2.5 mg IH .STK-MED ONE Albuterol/Ipratropium 3 ml 07/15/20 18:28 07/15/20 18:33 Duoneb 0.5-3 Mg/3 Ml Neb IH 07/15/20 18:29 3 ml STAT ONE Administration Albuterol/Ipratropium Confirm 07/15/20 18:31 Duoneb 0.5-3 Mg/3 Ml Neb Administered 07/15/20 18:32 Dose 3 ml IH .STK-MED ONE Aspirin 324 mg 07/15/20 21:05 07/15/20 21:09 Baby Aspirin 81 Mg Chew PO 07/15/20 21:06 324 mg STAT ONE Administration Aspirin Confirm 07/15/20 21:08 Baby Aspirin 81 Mg Chew Administered 07/15/20 21:09 Dose 324 mg .ROUTE .STK-MED ONE Ceftriaxone Sodium/Dextrose 1 g in 50 mls @ 100 mls/hr 07/15/20 21:09 07/15/20 21:56 Rocephin 1 Gm-D5w 50 Ml Bag IV 07/15/20 21:38 Infused STAT STA Infusion Azithromycin 500 mg in 250 mls @ 250 mls/hr 07/15/20 21:10 07/15/20 21:30 Zithromax 500 Mg/ 250 Ml Nacl Premix IV 07/15/20 22:09 250 mls/hr STAT ONE Administration Azithromycin Confirm 07/15/20 21:20 Zithromax 500 Mg/ 250 Ml Nacl Premix Administered 07/15/20 21:21 Dose 500 mg in 250 mls @ ud IV .STK-MED ONE Ceftriaxone Sodium/Dextrose Confirm 07/15/20 21:20 Rocephin 1 Gm-D5w 50 Ml Bag Administered 07/15/20 21:21 Dose 1 g in 50 mls @ ud IV .STK-MED ONE Ketorolac Tromethamine 30 mg 07/15/20 21:05 07/15/20 21:10 Toradol 30 Mg Injection IV 07/15/20 21:06 30 mg STAT ONE Administration Ketorolac Tromethamine Confirm 07/15/20 21:08 Toradol 30 Mg Injection Administered 07/15/20 21:09 Dose 30 mg .ROUTE .STK-MED ONE Metformin HCl 500 mg 07/16/20 17:00 Glucophage 500 Mg PO 08/15/20 16:59 BIDWM ARSH Methylprednisolone Sodium Succinate 125 mg 07/15/20 18:32 07/15/20 18:37 Solu-Medrol 125 Mg IV 07/15/20 18:33 125 mg STAT ONE Administration Methylprednisolone Sodium Succinate Confirm 07/15/20 18:35 Solu-Medrol 125 Mg Administered 07/15/20 18:36 Dose 125 mg .ROUTE .STK-MED ONE Nitroglycerin 1 gm 07/15/20 21:06 07/15/20 21:10 Nitro-Bid 2% Ud Packets TOP 07/15/20 21:07 1 gm STAT ONE Administration Nitroglycerin Confirm 07/15/20 21:08 Nitro-Bid 2% Ud Packets Administered 07/15/20 21:09 Dose 1 gm .ROUTE .STK-MED ONE Intake & Output (Last 24 hours) 07/14/20 07/15/20 07/16/20 07/17/20 11:59 11:59 11:59 11:59 Intake Total 480 Output Total 200 Balance 280 Weight 117.2 kg Microbiology Results (Last 24 hours) 07/16/20 09:13 Urine, Void Urine Culture - Pending 07/15/20 19:00 Blood Blood Culture Gram Stain - Pending 07/15/20 19:00 Blood Blood Culture - Pending 07/15/20 18:15 Blood Blood Culture Gram Stain - Pending 07/15/20 18:15 Blood Blood Culture - Pending Laboratory Results (Last 24 hours) 07/16/20 07/16/20 07/16/20 09:13 06:45 03:43 WBC 8.6 RBC 4.08 L Hgb 12.3 Hct 38.2 MCV 93.6 MCH 30.1 MCHC 32.2 RDW 12.2 Plt Count 233 MPV 12.4 H Gran % Eos # (Auto) Absolute Lymphs (auto) Absolute Monos (auto) Lymphocytes % Monocytes % Eosinophils % Basophils % Absolute Granulocytes Basophils # D-Dimer Sodium Potassium Chloride Carbon Dioxide Anion Gap BUN Creatinine Estimated GFR Glucose Calcium Magnesium Total Bilirubin AST ALT Alkaline Phosphatase Troponin I < 0.012 NT-Pro-B Natriuret Pep Serum Total Protein Albumin Urine Color YELLOW Urine Appearance SLIGHTLY CLOUDY Urine pH 5.0 Ur Specific [place] 1.053 Urine Protein 30 Urine Ketones TRACE Urine Blood NEGATIVE Urine Nitrite NEGATIVE Urine Bilirubin NEGATIVE Urine Urobilinogen NEGATIVE Ur Leukocyte Esterase SMALL Urine WBC (Auto) 3-5 Urine RBC (Auto) NONE U Epithel Cells (Auto) RARE Urine Bacteria (Auto) RARE Urine Mucus (Auto) SLIGHT Urine Culture Reflexed YES Urine Glucose 150 SARS-CoV-2 (PCR) 07/16/20 07/16/20 07/15/20 03:43 01:00 21:35 WBC RBC Hgb Hct MCV MCH MCHC RDW Plt Count MPV Gran % Eos # (Auto) Absolute Lymphs (auto) Absolute Monos (auto) Lymphocytes % Monocytes % Eosinophils % Basophils % Absolute Granulocytes Basophils # D-Dimer Sodium 133 L Potassium 4.4 Chloride 104 Carbon Dioxide 21 L Anion Gap 12.6 BUN 12 Creatinine 0.66 Estimated GFR > 60.0 Glucose 200 H Calcium 9.1 Magnesium Total Bilirubin 0.40 AST 28 ALT 26 Alkaline Phosphatase 82 Troponin I < 0.012 < 0.012 < 0.012 NT-Pro-B Natriuret Pep Serum Total Protein 6.8 Albumin 3.7 Urine Color Urine Appearance Urine pH Ur Specific [place] Urine Protein Urine Ketones Urine Blood Urine Nitrite Urine Bilirubin Urine Urobilinogen Ur Leukocyte Esterase Urine WBC (Auto) Urine RBC (Auto) U Epithel Cells (Auto) Urine Bacteria (Auto) Urine Mucus (Auto) Urine Culture Reflexed Urine Glucose SARS-CoV-2 (PCR) 07/15/20 07/15/20 07/15/20 21:30 18:45 18:15 WBC RBC Hgb Hct MCV MCH MCHC RDW Plt Count MPV Gran % Eos # (Auto) Absolute Lymphs (auto) Absolute Monos (auto) Lymphocytes % Monocytes % Eosinophils % Basophils % Absolute Granulocytes Basophils # D-Dimer 527 H* Sodium Potassium Chloride Carbon Dioxide Anion Gap BUN Creatinine Estimated GFR Glucose Calcium Magnesium Total Bilirubin AST ALT Alkaline Phosphatase Troponin I < 0.012 NT-Pro-B Natriuret Pep Serum Total Protein Albumin Urine Color Urine Appearance Urine pH Ur Specific [place] Urine Protein Urine Ketones Urine Blood Urine Nitrite Urine Bilirubin Urine Urobilinogen Ur Leukocyte Esterase Urine WBC (Auto) Urine RBC (Auto) U Epithel Cells (Auto) Urine Bacteria (Auto) Urine Mucus (Auto) Urine Culture Reflexed Urine Glucose SARS-CoV-2 (PCR) NEGATIVE 07/15/20 07/15/20 18:15 18:15 WBC 7.6 RBC 3.97 L Hgb 12.1 Hct 37.6 MCV 94.7 MCH 30.5 MCHC 32.2 RDW 12.3 Plt Count 219 MPV 11.9 H Gran % 54.6 Eos # (Auto) 0.43 Absolute Lymphs (auto) 2.24 Absolute Monos (auto) 0.77 Lymphocytes % 29.4 Monocytes % 10.1 Eosinophils % 5.6 H Basophils % 0.3 Absolute Granulocytes 4.17 Basophils # 0.02 D-Dimer Sodium 134 L Potassium 4.2 Chloride 105 Carbon Dioxide 21 L Anion Gap 12.0 BUN 10 Creatinine 0.63 Estimated GFR > 60.0 Glucose 98 Calcium 8.9 Magnesium 2.0 Total Bilirubin 0.50 AST 41 H ALT 28 Alkaline Phosphatase 77 Troponin I NT-Pro-B Natriuret Pep 270 Serum Total Protein 7.1 Albumin 3.8 Urine Color Urine Appearance Urine pH Ur Specific [place] Urine Protein Urine Ketones Urine Blood Urine Nitrite Urine Bilirubin Urine Urobilinogen Ur Leukocyte Esterase Urine WBC (Auto) Urine RBC (Auto) U Epithel Cells (Auto) Urine Bacteria (Auto) Urine Mucus (Auto) Urine Culture Reflexed Urine Glucose SARS-CoV-2 (PCR) Orders (Last 24 hours) Category Date Time Status Bedrest ROUTINE Activity 07/15/20 23:08 Active Electric Meter Reader STAT Care 07/15/20 18:27 Completed Code Status Order ROUTINE Care 07/15/20 23:08 Active EKG-ER Only STAT Care 07/15/20 18:26 Completed IV Care Q6H Care 07/15/20 23:08 Active IV Insertion STAT Care 07/15/20 18:[address] in Observation ROUTINE Care 07/15/20 23:08 Active Pulse Oximetry (ED) STAT Care 07/15/20 18:26 Completed Haydee Bernal ROUTINE Care 07/15/20 23:08 Active Telemetry q4h Care 07/15/20 23:08 Active Weight,Daily 0600 Care 07/15/20 23:08 Active Consult Cardiology ROUTINE Cons 07/16/20 10:46 Active Nutritional Admission Screen ONCE Diet 07/15/20 23:47 Active CHEST 1 VIEW (PORTABLE) Stat Exams 07/15/20 18:26 Completed CHEST WITH CONTRAST [CT] Stat Exams 07/15/20 19:59 Completed BLOOD CULTURE Stat Lab 07/15/20 19:00 Received CBC AM.LAB Lab 07/16/20 03:43 Completed CBC W DIFF Stat Lab 07/15/20 18:15 Completed CMP Routine Lab 08/26/20 03:43 Completed CMP Stat Lab 07/15/20 18:15 Completed CULTURE,URINE Urgent Lab 07/16/20 09:13 Received D-DIMER QUANTITATIVE Stat Lab 07/15/20 18:15 Completed MAGNESIUM Stat Lab 07/15/20 18:15 Completed NT PRO BNP Stat Lab 07/15/20 18:15 Completed TROPONIN Q3H Lab 07/15/20 18:45 Completed TROPONIN Q3H Lab 07/15/20 21:35 Completed TROPONIN Q3H Lab 07/16/20 01:00 Completed TROPONIN Q3H Lab 07/16/20 03:43 Completed TROPONIN Q3H Lab 07/16/20 06:45 Completed UA W/RFX UR CULTURE Urgent Lab 07/16/20 09:13 Completed Acetaminophen 325 mg [Tylenol 325 mg] Med 07/16/20 00:55 Active 650 mg PO Q4H PRN PRN Albuterol 2.5 mg/3 ml Neb [Proventil 2.5 mg/3 ml Neb Med 07/16/20 00:06 Discontinued ] 2.5 mg IH .STK-MED ONE Albuterol 2.5 mg/3 ml Neb [Proventil 2.5 mg/3 ml Neb Med 07/16/20 01:00 Active ] 2.5 mg IH Q6HRT Albuterol Common Canister [Ventolin Common Canister* Med 07/16/20 11:22 Active ] 2 puff IH Q6H PRN PRN Albuterol/Ipratropium 3ml Neb* [DUONEB 0.5-3 MG/3 ml Med 07/15/20 18:31 Discontinued Neb] 3 ml IH .STK-MED ONE Albuterol/Ipratropium 3ml Neb* [DUONEB 0.5-3 MG/3 ml Med 07/16/20 11:15 Active Neb] 3 ml IH Q4H PRN PRN Albuterol/Ipratropium 3ml Neb* [DUONEB 0.5-3 MG/3 ml Med 07/15/20 18:28 Discontinued Neb] 3 ml IH STAT ONE Aspirin 81 gm Chew [Baby Aspirin 81 mg Chew] Med 07/15/20 21:08 Discontinued 324 mg .ROUTE .STK-MED ONE Aspirin 81 gm Chew [Baby Aspirin 81 mg Chew] Med 07/15/20 21:05 Discontinued 324 mg PO STAT ONE Azithromycin 500 mg/250 ml [Zithromax 500 MG/ 250 ML Med 07/15/20 21:10 Discontinued NaCl Premix] 500 mg in 250 ml IV STAT Azithromycin 500 mg/250 ml [Zithromax 500 MG/ 250 ML Med 07/15/20 21:20 Discontinued NaCl Premix] 500 mg in 250 ml IV UD Carvedilol 6.25 mg [Coreg 6.25 MG] Med 07/16/20 12:00 Active 6.25 mg PO BID Ceftriaxone 1 GM/50 ML PREMIX* [ROCEPHIN 1 Gm-D5w 50 ml Med 07/15/20 21:09 Discontinued Bag] 1 g in 50 ml IV STAT Ceftriaxone 1 GM/50 ML PREMIX* [ROCEPHIN 1 Gm-D5w 50 ml Med 07/15/20 21:20 Discontinued Bag] 1 g in 50 ml IV UD Fluoxetine HCl 20 mg [Prozac 20 MG] Med 07/16/20 12:00 Active 20 mg PO DAILY Gabapentin 300 mg [Neurontin 300 mg] Med 07/16/20 11:15 Active 300 mg PO HS PRN PRN Glipizide 2.5 mg [Glucotrol Xl 2.5 MG] Med 07/16/20 12:00 Active 2.5 mg PO DAILY KETOROLAC trometh 30 mg Inj [TORAdol 30 mg Injection Med 07/15/20 21:08 Discontinued ] 30 mg .ROUTE .STK-MED ONE KETOROLAC trometh 30 mg Inj [TORAdol 30 mg Injection Med 07/15/20 21:05 Discontinued ] 30 mg IV STAT ONE Meclizine HCl 25 mg [Antivert 25 mg] Med 07/16/20 11:15 Active 25 mg PO BID PRN PRN Medication Intervention Med 07/16/20 11:30 Active 1 each PO .RN TO CHECK ON Metformin HCl 500 mg [Glucophage 500 MG] Med 07/16/20 17:00 Discontinued 500 mg PO BIDWM Methylprednis Sod Succ 125 mg* [solu-MEDROL 125 MG] Med 07/15/20 18:35 Discontinued 125 mg .ROUTE .STK-MED ONE Methylprednis Sod Succ 125 mg* [solu-MEDROL 125 MG] Med 07/15/20 18:32 Discontinued 125 mg IV STAT ONE Nitroglycerin 0.4 mg Tablet [Nitrostat 0.4 MG Tablet Med 07/16/20 10:47 Active ] 0.4 mg SL Q5MIN PRN MR X 3 PRN Nitroglycerin 2 %Ointment [Nitro-Bid 2% Ud Packets Med 07/15/20 21:08 Discontinued *] 1 gm .ROUTE .STK-MED ONE Nitroglycerin 2 %Ointment [Nitro-Bid 2% Ud Packets Med 07/15/20 21:06 Discontinued *] 1 gm TOP STAT ONE Pantoprazole 20 mg [Protonix 20MG Tablet] Med 07/16/20 12:00 Active 20 mg PO DAILY Ropinirole HCl 0.5 mg [Requip 0.5 MG] Med 07/16/20 22:00 Active 1 mg PO HS Peak Expiratory Flow Rate DAILY RT 07/16/20 00:13 Active Peak Expiratory Flow Rate ONCE RT 07/15/20 18:41 Completed Pulse Oximetry .continuos RT 07/16/20 00:13 Active Pulse Oximetry Q4H RT 07/15/20 23:08 Completed Respiratory Therapy Assessment DAILY RT 07/15/20 18:36 Completed Respiratory Therapy Assessment DAILY RT 07/16/20 00:13 Active Patient Care Notes (Last 24 hours) 07/16/20 11:08 Nursing Note by Zayra Enciso I called 's office and he stated it will be tomorrow before he could round d/t emergency cath he has to do today. Initialized on 07/16/20 11:08 - END OF NOTE 07/16/20 11:06 Nursing Note by Aysha Boone Pt states her chest discomfort is now down to a 2. Denies needing another nitro at this time. Pt sitting up in chair watching tv. Pt aware Dr Olsen will see her today and Dr Matos is consulted. stated it has been a few years since she has had an echo, saw Dr Matos last year. Initialized on 07/16/20 11:06 - END OF NOTE 07/16/20 11:00 (created 07/16/20 11:02) Nursing Note by Aysha Boone Pt c/o sharp pain to L mid sternum, pressure shooting into her back. Rated at a 7-10 , (b/p 115/67) Nitro given. Pain came down to a 5 , additional nitro given after 5 minutes pain continued as before ( B/P 116/64 HR 85). Pt sitting up in recliner with her legs up. Initialized on 07/16/20 11:02 - END OF NOTE 07/16/20 10:45 SBAR Note by Aysha Boone SITUATION I am calling about LATHA SALAZAR the patient's code status is Full Code The problem I am calling about is: Pt c/p pressure chest pain. Called and reported to DR Olsen; received new order to consult Dr Matos and PRN nitro. ASSESSMENT RECOMMENDATION Physician notified at 1045 New Orders received: Vital Signs (Last 4 hours) Temp Pulse Resp BP Pulse Ox 07/16/20 07:40 98.1 F 80 18 123/71 94 L 07/16/20 07:19 86 16 95 Diagnois, Code Status Date of Arrival on Unit 07/15/20 Admitted From Emergency Dept Diagnosis COPD exacerbation Resucitation Status Full Code Intake and Output 24 Hours 07/16/20 07/17/20 06:59 06:59 Intake Total 240 240 Output Total 200 Balance 240 40 Weight 117.2 kg Intake: Intake, Oral Amount 240 240 Output: Output, Urine Amount 200 Other: Number of Voids 2 Physical Assessment Anxiety Level None,at ease,Awake,Calm,Moderate Mental Status Alert Patient Orientation Person,Place,Time Coma Scale Total 15 Breath Sounds [Anterior/ Clear,Diminished Posterior Bilateral Throughout ] Breath Sounds [Anterior/ Wheezes Posterior Bilateral Throughout ] Cardiac Rhythm-SCCH Sinus Rhythm Bowel Sounds [All Quadrants] Present Abdomen Description Soft,Large,Round,Tender Urine Appearance Cloudy,Sediment Urine Color Straw Skin Color [place] Skin Temperature Warm Pain Scale (Last 24 Hours) Pain Intensity 2 Pain Intensity 4 Pain Intensity 4 Pain Intensity 0 Pain Intensity 0 Pain Intensity 0 Pain Intensity 8 Pain Intensity 8 Pain Intensity 8 Pain Intensity 2 Pain Intensity 2 Pain Intensity 5 Pain Intensity 5 Pain Intensity 5 Pain Intensity 5 PAST MEDICAL HISTORY Neurological History Seizures ENT History Cataracts Endocrine Medical History Diabetes Type II,Other Respiratory History Asthma,Bronchitis,COPD Cardiac History High Cholesterol,Hypertension,Other GI Medical History GERD History No Pertinent History Reproductive Disorders No Pertinent History Pyscho-Social History Anxiety,Depression Communicable Disease No Pertinent History Comment nerve damage in the right foot, NECK pinched nerve;scoliosis LEAKING HEART VALVE Lab Results (Last 24 Hours) 07/16/20 07/16/20 07/16/20 Range/Units 09:13 06:45 03:43 WBC 8.6 (4.0-10.5) K/mm3 RBC 4.08 L (4.1-5.4) M/mm3 Hgb 12.3 (12.0-16.0) gm/dl Hct 38.2 (35-47) % MCV 93.6 (78-100) fl MCH 30.1 (26-32) pg MCHC 32.2 (32-36) g/dl RDW 12.2 (11.5-14.0) % Plt Count 233 (150-450) K/mm3 MPV 12.4 H (7.5-11.0) fl Gran % (36.0-66.0) % Eos # (Auto) (0-0.5) Absolute Lymphs (auto) (1.0-4.6) Absolute Monos (auto) (0.0-1.3) Lymphocytes % (24.0-44.0) % Monocytes % (0.0-12.0) % Eosinophils % (0.00-5.0) % Basophils % (0.0-0.4) % Absolute Granulocytes (1.4-6.9) Basophils # (0-0.4) D-Dimer (215-500) ng/mL Sodium (137-145) mmol/L Potassium (3.5-5.1) mmol/L Chloride (98-107) mmol/L Carbon Dioxide (22-30) mmol/L Anion Gap (5-15) MEQ/L BUN (7-17) mg/dL Creatinine (0.52-1.04) mg/dL Estimated GFR ML/MIN Glucose (74-106) mg/dL Calcium (8.4-10.2) mg/dL Magnesium (1.6-2.3) mg/dL Total Bilirubin (0.2-1.3) mg/dL AST (14-36) U/L ALT (0-35) U/L Alkaline Phosphatase (38-126) U/L Troponin I < 0.012 (0.000-0.034) ng/mL NT-Pro-B Natriuret Pep (0-900) pg/mL Serum Total Protein (6.3-8.2) g/dL Albumin (3.5-5.0) g/dL Urine Color YELLOW (YELLOW) Urine Appearance SLIGHTLY CLOUDY (CLEAR) Urine pH 5.0 (5-6) Ur Specific [place] 1.053 (1.005-1.025) Urine Protein 30 (Negative) Urine Ketones TRACE (NEGATIVE) Urine Blood NEGATIVE (0-5) Stu/ul Urine Nitrite NEGATIVE (NEGATIVE) Urine Bilirubin NEGATIVE (NEGATIVE) Urine Urobilinogen NEGATIVE (0-1) mg/dL Ur Leukocyte Esterase SMALL (NEGATIVE) Urine WBC (Auto) 3-5 (0-5) /HPF Urine RBC (Auto) NONE (0-2) /HPF U Epithel Cells (Auto) RARE (FEW) /HPF Urine Bacteria (Auto) RARE (NEGATIVE) /HPF Urine Mucus (Auto) SLIGHT (NEGATIVE) /HPF Urine Culture Reflexed YES (NO) Urine Glucose 150 (NEGATIVE) mg/dL SARS-CoV-2 (PCR) (NEGATIVE) 07/16/20 07/16/20 07/15/20 Range/Units 03:43 01:00 21:35 WBC (4.0-10.5) K/mm3 RBC (4.1-5.4) M/mm3 Hgb (12.0-16.0) gm/dl Hct (35-47) % MCV (78-100) fl MCH (26-32) pg MCHC (32-36) g/dl RDW (11.5-14.0) % Plt Count (150-450) K/mm3 MPV (7.5-11.0) fl Gran % (36.0-66.0) % Eos # (Auto) (0-0.5) Absolute Lymphs (auto) (1.0-4.6) Absolute Monos (auto) (0.0-1.3) Lymphocytes % (24.0-44.0) % Monocytes % (0.0-12.0) % Eosinophils % (0.00-5.0) % Basophils % (0.0-0.4) % Absolute Granulocytes (1.4-6.9) Basophils # (0-0.4) D-Dimer (215-500) ng/mL Sodium 133 L (137-145) mmol/L Potassium 4.4 (3.5-5.1) mmol/L Chloride 104 (98-107) mmol/L Carbon Dioxide 21 L (22-30) mmol/L Anion Gap 12.6 (5-15) MEQ/L BUN 12 (7-17) mg/dL Creatinine 0.66 (0.52-1.04) mg/dL Estimated GFR > 60.0 ML/MIN Glucose 200 H (74-106) mg/dL Calcium 9.1 (8.4-10.2) mg/dL Magnesium (1.6-2.3) mg/dL Total Bilirubin 0.40 (0.2-1.3) mg/dL AST 28 (14-36) U/L ALT 26 (0-35) U/L Alkaline Phosphatase 82 (38-126) U/L Troponin I < 0.012 < 0.012 < 0.012 (0.000-0.034) ng/mL NT-Pro-B Natriuret Pep (0-900) pg/mL Serum Total Protein 6.8 (6.3-8.2) g/dL Albumin 3.7 (3.5-5.0) g/dL Urine Color (YELLOW) Urine Appearance (CLEAR) Urine pH (5-6) Ur Specific [place] (1.005-1.025) Urine Protein (Negative) Urine Ketones (NEGATIVE) Urine Blood (0-5) Stu/ul Urine Nitrite (NEGATIVE) Urine Bilirubin (NEGATIVE) Urine Urobilinogen (0-1) mg/dL Ur Leukocyte Esterase (NEGATIVE) Urine WBC (Auto) (0-5) /HPF Urine RBC (Auto) (0-2) /HPF U Epithel Cells (Auto) (FEW) /HPF Urine Bacteria (Auto) (NEGATIVE) /HPF Urine Mucus (Auto) (NEGATIVE) /HPF Urine Culture Reflexed (NO) Urine Glucose (NEGATIVE) mg/dL SARS-CoV-2 (PCR) (NEGATIVE) 08/25/20 08/25/20 08/25/20 Range/Units 21:30 18:45 18:15 WBC (4.0-10.5) K/mm3 RBC (4.1-5.4) M/mm3 Hgb (12.0-16.0) gm/dl Hct (35-47) % MCV (78-100) fl MCH (26-32) pg MCHC (32-36) g/dl RDW (11.5-14.0) % Plt Count (150-450) K/mm3 MPV (7.5-11.0) fl Gran % (36.0-66.0) % Eos # (Auto) (0-0.5) Absolute Lymphs (auto) (1.0-4.6) Absolute Monos (auto) (0.0-1.3) Lymphocytes % (24.0-44.0) % Monocytes % (0.0-12.0) % Eosinophils % (0.00-5.0) % Basophils % (0.0-0.4) % Absolute Granulocytes (1.4-6.9) Basophils # (0-0.4) D-Dimer 527 H* (215-500) ng/mL Sodium (137-145) mmol/L Potassium (3.5-5.1) mmol/L Chloride (98-107) mmol/L Carbon Dioxide (22-30) mmol/L Anion Gap (5-15) MEQ/L BUN (7-17) mg/dL Creatinine (0.52-1.04) mg/dL Estimated GFR ML/MIN Glucose (74-106) mg/dL Calcium (8.4-10.2) mg/dL Magnesium (1.6-2.3) mg/dL Total Bilirubin (0.2-1.3) mg/dL AST (14-36) U/L ALT (0-35) U/L Alkaline Phosphatase (38-126) U/L Troponin I < 0.012 (0.000-0.034) ng/mL NT-Pro-B Natriuret Pep (0-900) pg/mL Serum Total Protein (6.3-8.2) g/dL Albumin (3.5-5.0) g/dL Urine Color (YELLOW) Urine Appearance (CLEAR) Urine pH (5-6) Ur Specific [place] (1.005-1.025) Urine Protein (Negative) Urine Ketones (NEGATIVE) Urine Blood (0-5) Stu/ul Urine Nitrite (NEGATIVE) Urine Bilirubin (NEGATIVE) Urine Urobilinogen (0-1) mg/dL Ur Leukocyte Esterase (NEGATIVE) Urine WBC (Auto) (0-5) /HPF Urine RBC (Auto) (0-2) /HPF U Epithel Cells (Auto) (FEW) /HPF Urine Bacteria (Auto) (NEGATIVE) /HPF Urine Mucus (Auto) (NEGATIVE) /HPF Urine Culture Reflexed (NO) Urine Glucose (NEGATIVE) mg/dL SARS-CoV-2 (PCR) NEGATIVE (NEGATIVE) 07/15/20 07/15/20 Range/Units 18:15 18:15 WBC 7.6 (4.0-10.5) K/mm3 RBC 3.97 L (4.1-5.4) M/mm3 Hgb 12.1 (12.0-16.0) gm/dl Hct 37.6 (35-47) % MCV 94.7 (78-100) fl MCH 30.5 (26-32) pg MCHC 32.2 (32-36) g/dl RDW 12.3 (11.5-14.0) % Plt Count 219 (150-450) K/mm3 MPV 11.9 H (7.5-11.0) fl Gran % 54.6 (36.0-66.0) % Eos # (Auto) 0.43 (0-0.5) Absolute Lymphs (auto) 2.24 (1.0-4.6) Absolute Monos (auto) 0.77 (0.0-1.3) Lymphocytes % 29.4 (24.0-44.0) % Monocytes % 10.1 (0.0-12.0) % Eosinophils % 5.6 H (0.00-5.0) % Basophils % 0.3 (0.0-0.4) % Absolute Granulocytes 4.17 (1.4-6.9) Basophils # 0.02 (0-0.4) D-Dimer (215-500) ng/mL Sodium 134 L (137-145) mmol/L Potassium 4.2 (3.5-5.1) mmol/L Chloride 105 (98-107) mmol/L Carbon Dioxide 21 L (22-30) mmol/L Anion Gap 12.0 (5-15) MEQ/L BUN 10 (7-17) mg/dL Creatinine 0.63 (0.52-1.04) mg/dL Estimated GFR > 60.0 ML/MIN Glucose 98 (74-106) mg/dL Calcium 8.9 (8.4-10.2) mg/dL Magnesium 2.0 (1.6-2.3) mg/dL Total Bilirubin 0.50 (0.2-1.3) mg/dL AST 41 H (14-36) U/L ALT 28 (0-35) U/L Alkaline Phosphatase 77 (38-126) U/L Troponin I (0.000-0.034) ng/mL NT-Pro-B Natriuret Pep 270 (0-900) pg/mL Serum Total Protein 7.1 (6.3-8.2) g/dL Albumin 3.8 (3.5-5.0) g/dL Urine Color (YELLOW) Urine Appearance (CLEAR) Urine pH (5-6) Ur Specific [place] (1.005-1.025) Urine Protein (Negative) Urine Ketones (NEGATIVE) Urine Blood (0-5) Stu/ul Urine Nitrite (NEGATIVE) Urine Bilirubin (NEGATIVE) Urine Urobilinogen (0-1) mg/dL Ur Leukocyte Esterase (NEGATIVE) Urine WBC (Auto) (0-5) /HPF Urine RBC (Auto) (0-2) /HPF U Epithel Cells (Auto) (FEW) /HPF Urine Bacteria (Auto) (NEGATIVE) /HPF Urine Mucus (Auto) (NEGATIVE) /HPF Urine Culture Reflexed (NO) Urine Glucose (NEGATIVE) mg/dL SARS-CoV-2 (PCR) (NEGATIVE) Microbiology Results (Last 24 Hours) 07/16/20 09:13 Urine Culture - Pending Urine, Void 07/15/20 19:00 Blood Culture Gram Stain - Pending Blood Blood Culture - Pending 07/15/20 18:15 Blood Culture Gram Stain - Pending Blood Blood Culture - Pending Orders (Last 24 Hours) Category Date Time Status Bedrest ROUTINE Activity 07/15/20 23:08 Active Code Status Order ROUTINE Care 07/15/20 23:08 Active IV Care Q6H Care 07/15/20 23:[address] in Observation ROUTINE Care 07/15/20 23:08 Active Haydee Bernal ROUTINE Care 07/15/20 23:08 Active Telemetry q4h Care 07/15/20 23:08 Active Weight,Daily 0600 Care 07/15/20 23:08 Active Nutritional Admission Screen ONCE Diet 07/15/20 23:47 Active BLOOD CULTURE Stat Lab 07/15/20 19:00 Received CULTURE,URINE Urgent Lab 07/16/20 09:13 Received Acetaminophen 325 mg [Tylenol 325 mg] Med 07/16/20 00:55 Active 650 mg PO Q4H PRN PRN Albuterol 2.5 mg/3 ml Neb [Proventil 2.5 mg/3 ml Neb Med 07/16/20 01:00 Active ] 2.5 mg IH Q6HRT Peak Expiratory Flow Rate DAILY RT 07/16/20 00:13 Active Pulse Oximetry .continuos RT 07/16/20 00:13 Active Respiratory Therapy Assessment DAILY RT 07/16/20 00:13 Active Nursing Notes (Last 12 hours) 07/16/20 09:11 SBAR Note by Aysha Boone SITUATION I am calling about PRICILLA SALAZAR the patient's code status is Full Code The problem I am calling about is: Called the [facility], requested a current med list on pt due to pt has dementia and does not know them nor when he has taken them last. Justyna is faxing per request. ASSESSMENT RECOMMENDATION Physician notified at 0911 New Orders received: Vital Signs (Last 4 hours) Temp Pulse Resp BP Pulse Ox 07/16/20 07:40 98.1 F 80 18 123/71 94 L 07/16/20 07:19 86 16 95 Diagnois, Code Status Date of Arrival on Unit 07/15/20 Admitted From Emergency Dept Diagnosis COPD exacerbation Resucitation Status Full Code Intake and Output 24 Hours 07/16/20 07/17/20 06:59 06:59 Intake Total 240 Balance 240 Weight 117.2 kg Intake: Intake, Oral Amount 240 Other: Number of Voids 2 Physical Assessment Mental Status Alert Patient Orientation Person,Place,Time Coma Scale Total 15 Breath Sounds [Anterior/ Clear,Diminished Posterior Bilateral Throughout ] Breath Sounds [Anterior/ Wheezes Posterior Bilateral Throughout ] Cardiac Rhythm-SCCH Sinus Rhythm Bowel Sounds [All Quadrants] Present Abdomen Description Soft,Non-Tender Urine Appearance Not Voided Skin Color [place] Skin Temperature Warm Pain Scale (Last 24 Hours) Pain Intensity 4 Pain Intensity 4 Pain Intensity 0 Pain Intensity 0 Pain Intensity 0 Pain Intensity 8 Pain Intensity 8 Pain Intensity 8 Pain Intensity 2 Pain Intensity 2 Pain Intensity 5 Pain Intensity 5 Pain Intensity 5 Pain Intensity 5 PAST MEDICAL HISTORY Neurological History Seizures ENT History Cataracts Endocrine Medical History Diabetes Type II,Other Respiratory History Asthma,Bronchitis,COPD Cardiac History High Cholesterol,Hypertension,Other GI Medical History GERD History No Pertinent History Reproductive Disorders No Pertinent History Pyscho-Social History Anxiety,Depression Communicable Disease No Pertinent History Comment nerve damage in the right foot, NECK pinched nerve;scoliosis LEAKING HEART VALVE Lab Results (Last 24 Hours) 07/16/20 07/16/20 07/16/20 Range/Units 06:45 03:43 03:43 WBC 8.6 (4.0-10.5) K/mm3 RBC 4.08 L (4.1-5.4) M/mm3 Hgb 12.3 (12.0-16.0) gm/dl Hct 38.2 (35-47) % MCV 93.6 (78-100) fl MCH 30.1 (26-32) pg MCHC 32.2 (32-36) g/dl RDW 12.2 (11.5-14.0) % Plt Count 233 (150-450) K/mm3 MPV 12.4 H (7.5-11.0) fl Gran % (36.0-66.0) % Eos # (Auto) (0-0.5) Absolute Lymphs (auto) (1.0-4.6) Absolute Monos (auto) (0.0-1.3) Lymphocytes % (24.0-44.0) % Monocytes % (0.0-12.0) % Eosinophils % (0.00-5.0) % Basophils % (0.0-0.4) % Absolute Granulocytes (1.4-6.9) Basophils # (0-0.4) D-Dimer (215-500) ng/mL Sodium 133 L (137-145) mmol/L Potassium 4.4 (3.5-5.1) mmol/L Chloride 104 (98-107) mmol/L Carbon Dioxide 21 L (22-30) mmol/L Anion Gap 12.6 (5-15) MEQ/L BUN 12 (7-17) mg/dL Creatinine 0.66 (0.52-1.04) mg/dL Estimated GFR > 60.0 ML/MIN Glucose 200 H (74-106) mg/dL Calcium 9.1 (8.4-10.2) mg/dL Magnesium (1.6-2.3) mg/dL Total Bilirubin 0.40 (0.2-1.3) mg/dL AST 28 (14-36) U/L ALT 26 (0-35) U/L Alkaline Phosphatase 82 (38-126) U/L Troponin I < 0.012 < 0.012 (0.000-0.034) ng/mL NT-Pro-B Natriuret Pep (0-900) pg/mL Serum Total Protein 6.8 (6.3-8.2) g/dL Albumin 3.7 (3.5-5.0) g/dL SARS-CoV-2 (PCR) (NEGATIVE) 07/16/20 07/15/20 07/15/20 Range/Units 01:00 21:35 21:30 WBC (4.0-10.5) K/mm3 RBC (4.1-5.4) M/mm3 Hgb (12.0-16.0) gm/dl Hct (35-47) % MCV (78-100) fl MCH (26-32) pg MCHC (32-36) g/dl RDW (11.5-14.0) % Plt Count (150-450) K/mm3 MPV (7.5-11.0) fl Gran % (36.0-66.0) % Eos # (Auto) (0-0.5) Absolute Lymphs (auto) (1.0-4.6) Absolute Monos (auto) (0.0-1.3) Lymphocytes % (24.0-44.0) % Monocytes % (0.0-12.0) % Eosinophils % (0.00-5.0) % Basophils % (0.0-0.4) % Absolute Granulocytes (1.4-6.9) Basophils # (0-0.4) D-Dimer (215-500) ng/mL Sodium (137-145) mmol/L Potassium (3.5-5.1) mmol/L Chloride (98-107) mmol/L Carbon Dioxide (22-30) mmol/L Anion Gap (5-15) MEQ/L BUN (7-17) mg/dL Creatinine (0.52-1.04) mg/dL Estimated GFR ML/MIN Glucose (74-106) mg/dL Calcium (8.4-10.2) mg/dL Magnesium (1.6-2.3) mg/dL Total Bilirubin (0.2-1.3) mg/dL AST (14-36) U/L ALT (0-35) U/L Alkaline Phosphatase (38-126) U/L Troponin I < 0.012 < 0.012 (0.000-0.034) ng/mL NT-Pro-B Natriuret Pep (0-900) pg/mL Serum Total Protein (6.3-8.2) g/dL Albumin (3.5-5.0) g/dL SARS-CoV-2 (PCR) NEGATIVE (NEGATIVE) 07/15/20 07/15/20 07/15/20 Range/Units 18:45 18:15 18:15 WBC (4.0-10.5) K/mm3 RBC (4.1-5.4) M/mm3 Hgb (12.0-16.0) gm/dl Hct (35-47) % MCV (78-100) fl MCH (26-32) pg MCHC (32-36) g/dl RDW (11.5-14.0) % Plt Count (150-450) K/mm3 MPV (7.5-11.0) fl Gran % (36.0-66.0) % Eos # (Auto) (0-0.5) Absolute Lymphs (auto) (1.0-4.6) Absolute Monos (auto) (0.0-1.3) Lymphocytes % (24.0-44.0) % Monocytes % (0.0-12.0) % Eosinophils % (0.00-5.0) % Basophils % (0.0-0.4) % Absolute Granulocytes (1.4-6.9) Basophils # (0-0.4) D-Dimer 527 H* (215-500) ng/mL Sodium 134 L (137-145) mmol/L Potassium 4.2 (3.5-5.1) mmol/L Chloride 105 (98-107) mmol/L Carbon Dioxide 21 L (22-30) mmol/L Anion Gap 12.0 (5-15) MEQ/L BUN 10 (7-17) mg/dL Creatinine 0.63 (0.52-1.04) mg/dL Estimated GFR > 60.0 ML/MIN Glucose 98 (74-106) mg/dL Calcium 8.9 (8.4-10.2) mg/dL Magnesium 2.0 (1.6-2.3) mg/dL Total Bilirubin 0.50 (0.2-1.3) mg/dL AST 41 H (14-36) U/L ALT 28 (0-35) U/L Alkaline Phosphatase 77 (38-126) U/L Troponin I < 0.012 (0.000-0.034) ng/mL NT-Pro-B Natriuret Pep 270 (0-900) pg/mL Serum Total Protein 7.1 (6.3-8.2) g/dL Albumin 3.8 (3.5-5.0) g/dL SARS-CoV-2 (PCR) (NEGATIVE) 07/15/20 Range/Units 18:15 WBC 7.6 (4.0-10.5) K/mm3 RBC 3.97 L (4.1-5.4) M/mm3 Hgb 12.1 (12.0-16.0) gm/dl Hct 37.6 (35-47) % MCV 94.7 (78-100) fl MCH 30.5 (26-32) pg MCHC 32.2 (32-36) g/dl RDW 12.3 (11.5-14.0) % Plt Count 219 (150-450) K/mm3 MPV 11.9 H (7.5-11.0) fl Gran % 54.6 (36.0-66.0) % Eos # (Auto) 0.43 (0-0.5) Absolute Lymphs (auto) 2.24 (1.0-4.6) Absolute Monos (auto) 0.77 (0.0-1.3) Lymphocytes % 29.4 (24.0-44.0) % Monocytes % 10.1 (0.0-12.0) % Eosinophils % 5.6 H (0.00-5.0) % Basophils % 0.3 (0.0-0.4) % Absolute Granulocytes 4.17 (1.4-6.9) Basophils # 0.02 (0-0.4) D-Dimer (215-500) ng/mL Sodium (137-145) mmol/L Potassium (3.5-5.1) mmol/L Chloride (98-107) mmol/L Carbon Dioxide (22-30) mmol/L Anion Gap (5-15) MEQ/L BUN (7-17) mg/dL Creatinine (0.52-1.04) mg/dL Estimated GFR ML/MIN Glucose (74-106) mg/dL Calcium (8.4-10.2) mg/dL Magnesium (1.6-2.3) mg/dL Total Bilirubin (0.2-1.3) mg/dL AST (14-36) U/L ALT (0-35) U/L Alkaline Phosphatase (38-126) U/L Troponin I (0.000-0.034) ng/mL NT-Pro-B Natriuret Pep (0-900) pg/mL Serum Total Protein (6.3-8.2) g/dL Albumin (3.5-5.0) g/dL SARS-CoV-2 (PCR) (NEGATIVE) Microbiology Results (Last 24 Hours) 07/15/20 19:00 Blood Culture Gram Stain - Pending Blood Blood Culture - Pending 07/15/20 18:15 Blood Culture Gram Stain - Pending Blood Blood Culture - Pending Orders (Last 24 Hours) Category Date Time Status Bedrest ROUTINE Activity 07/15/20 23:08 Active Code Status Order ROUTINE Care 07/15/20 23:08 Active IV Care Q6H Care 07/15/20 23:[address] in Observation ROUTINE Care 07/15/20 23:08 Active Haydee Bernal ROUTINE Care 07/15/20 23:08 Active Telemetry q4h Care 07/15/20 23:08 Active Weight,Daily 0600 Care 07/15/20 23:08 Active Nutritional Admission Screen ONCE Diet 07/15/20 23:47 Active BLOOD CULTURE Stat Lab 07/15/20 19:00 Received UA W/RFX UR CULTURE Urgent Lab 07/16/20 Uncollected Acetaminophen 325 mg [Tylenol 325 mg] Med 07/16/20 00:55 Active 650 mg PO Q4H PRN PRN Albuterol 2.5 mg/3 ml Neb [Proventil 2.5 mg/3 ml Neb Med 07/16/20 01:00 Active ] 2.5 mg IH Q6HRT Peak Expiratory Flow Rate DAILY RT 07/16/20 00:13 Active Pulse Oximetry .continuos RT 07/16/20 00:13 Active Respiratory Therapy Assessment DAILY RT 07/16/20 00:13 Active Active Visit Medications Generic Name Dose Route Start Last Admin Trade Name Freq PRN Reason Stop Dose Admin Acetaminophen 650 mg 07/16/20 00:55 07/16/20 06:36 Tylenol 325 Mg PO 08/15/20 00:54 650 mg Q4H PRN PRN Administration PAIN AND/OR FEVER Albuterol Sulfate 2.5 mg 07/16/20 01:00 07/16/20 07:16 Proventil 2.5 Mg/3 Ml Neb IH 08/15/20 00:59 2.5 mg Q6HRT ARSH Administration Home Medications Medication Instructions Recorded Confirmed Last Taken Type Fluoxetine HCl 20 mg [Prozac 20 20 mg PO DAILY 07/15/20 07/16/20 07/15/20 History MG] Gabapentin 300 mg PO HS PRN PRN 07/15/20 07/16/20 Unknown History Glipizide [Glipizide ER] 2.5 mg PO DAILY 07/15/20 07/16/20 07/15/20 History Metformin HCl 500 mg 500 mg PO BIDWM 07/15/20 07/16/20 07/15/20 History [Glucophage 500 MG] Prazosin HCl 1 mg PO HS 07/15/20 07/16/20 07/14/20 History Initialized on 07/16/20 09:11 - END OF NOTE Active Visit Medications Generic Name Dose Route Start Last Admin Trade Name Freq PRN Reason Stop Dose Admin Acetaminophen 650 mg 07/16/20 00:55 07/16/20 06:36 Tylenol 325 Mg PO 08/15/20 00:54 650 mg Q4H PRN PRN Administration PAIN AND/OR FEVER Albuterol Sulfate 2.5 mg 07/16/20 01:00 07/16/20 07:16 Proventil 2.5 Mg/3 Ml Neb IH 08/15/20 00:59 2.5 mg Q6HRT ARSH Administration Home Medications Medication Instructions Recorded Confirmed Last Taken Type Fluoxetine HCl 20 mg [Prozac 20 20 mg PO DAILY 07/15/20 07/16/20 07/15/20 History MG] Gabapentin 300 mg PO HS PRN PRN 07/15/20 07/16/20 Unknown History Glipizide [Glipizide ER] 2.5 mg PO DAILY 07/15/20 07/16/20 07/15/20 History Metformin HCl 500 mg 500 mg PO BIDWM 07/15/20 07/16/20 07/15/20 History [Glucophage 500 MG] Prazosin HCl 1 mg PO HS 07/15/20 07/16/20 07/14/20 History Initialized on 07/16/20 10:45 - END OF NOTE 07/16/20 09:11 SBAR Note by Aysha Boone SITUATION I am calling about LATHA SALAZAR the patient's code status is Full Code The problem I am calling about is: Called the [facility], requested a current med list on pt due to pt has dementia and does not know them nor when he has taken them last. [facility] is faxing per request. ASSESSMENT RECOMMENDATION Physician notified at 0911 New Orders received: Vital Signs (Last 4 hours) Temp Pulse Resp BP Pulse Ox 07/16/20 07:40 98.1 F 80 18 123/71 94 L 07/16/20 07:19 86 16 95 Diagnois, Code Status Date of Arrival on Unit 07/15/20 Admitted From Emergency Dept Diagnosis COPD exacerbation Resucitation Status Full Code Intake and Output 24 Hours 07/16/20 07/17/20 06:59 06:59 Intake Total 240 Balance 240 Weight 117.2 kg Intake: Intake, Oral Amount 240 Other: Number of Voids 2 Physical Assessment Mental Status Alert Patient Orientation Person,Place,Time Coma Scale Total 15 Breath Sounds [Anterior/ Clear,Diminished Posterior Bilateral Throughout ] Breath Sounds [Anterior/ Wheezes Posterior Bilateral Throughout ] Cardiac Rhythm-[facility] Sinus Rhythm Bowel Sounds [All Quadrants] Present Abdomen Description Soft,Non-Tender Urine Appearance Not Voided Skin Color [place] Skin Temperature Warm Pain Scale (Last 24 Hours) Pain Intensity 4 Pain Intensity 4 Pain Intensity 0 Pain Intensity 0 Pain Intensity 0 Pain Intensity 8 Pain Intensity 8 Pain Intensity 8 Pain Intensity 2 Pain Intensity 2 Pain Intensity 5 Pain Intensity 5 Pain Intensity 5 Pain Intensity 5 PAST MEDICAL HISTORY Neurological History Seizures ENT History Cataracts Endocrine Medical History Diabetes Type II,Other Respiratory History Asthma,Bronchitis,COPD Cardiac History High Cholesterol,Hypertension,Other GI Medical History GERD History No Pertinent History Reproductive Disorders No Pertinent History Pyscho-Social History Anxiety,Depression Communicable Disease No Pertinent History Comment nerve damage in the right foot, NECK pinched nerve;scoliosis LEAKING HEART VALVE Lab Results (Last 24 Hours) 07/16/20 07/16/20 07/16/20 Range/Units 06:45 03:43 03:43 WBC 8.6 (4.0-10.5) K/mm3 RBC 4.08 L (4.1-5.4) M/mm3 Hgb 12.3 (12.0-16.0) gm/dl Hct 38.2 (35-47) % MCV 93.6 (78-100) fl MCH 30.1 (26-32) pg MCHC 32.2 (32-36) g/dl RDW 12.2 (11.5-14.0) % Plt Count 233 (150-450) K/mm3 MPV 12.4 H (7.5-11.0) fl Gran % (36.0-66.0) % Eos # (Auto) (0-0.5) Absolute Lymphs (auto) (1.0-4.6) Absolute Monos (auto) (0.0-1.3) Lymphocytes % (24.0-44.0) % Monocytes % (0.0-12.0) % Eosinophils % (0.00-5.0) % Basophils % (0.0-0.4) % Absolute Granulocytes (1.4-6.9) Basophils # (0-0.4) D-Dimer (215-500) ng/mL Sodium 133 L (137-145) mmol/L Potassium 4.4 (3.5-5.1) mmol/L Chloride 104 (98-107) mmol/L Carbon Dioxide 21 L (22-30) mmol/L Anion Gap 12.6 (5-15) MEQ/L BUN 12 (7-17) mg/dL Creatinine 0.66 (0.52-1.04) mg/dL Estimated GFR > 60.0 ML/MIN Glucose 200 H (74-106) mg/dL Calcium 9.1 (8.4-10.2) mg/dL Magnesium (1.6-2.3) mg/dL Total Bilirubin 0.40 (0.2-1.3) mg/dL AST 28 (14-36) U/L ALT 26 (0-35) U/L Alkaline Phosphatase 82 (38-126) U/L Troponin I < 0.012 < 0.012 (0.000-0.034) ng/mL NT-Pro-B Natriuret Pep (0-900) pg/mL Serum Total Protein 6.8 (6.3-8.2) g/dL Albumin 3.7 (3.5-5.0) g/dL SARS-CoV-2 (PCR) (NEGATIVE) 07/16/20 07/15/20 07/15/20 Range/Units 01:00 21:35 21:30 WBC (4.0-10.5) K/mm3 RBC (4.1-5.4) M/mm3 Hgb (12.0-16.0) gm/dl Hct (35-47) % MCV (78-100) fl MCH (26-32) pg MCHC (32-36) g/dl RDW (11.5-14.0) % Plt Count (150-450) K/mm3 MPV (7.5-11.0) fl Gran % (36.0-66.0) % Eos # (Auto) (0-0.5) Absolute Lymphs (auto) (1.0-4.6) Absolute Monos (auto) (0.0-1.3) Lymphocytes % (24.0-44.0) % Monocytes % (0.0-12.0) % Eosinophils % (0.00-5.0) % Basophils % (0.0-0.4) % Absolute Granulocytes (1.4-6.9) Basophils # (0-0.4) D-Dimer (215-500) ng/mL Sodium (137-145) mmol/L Potassium (3.5-5.1) mmol/L Chloride (98-107) mmol/L Carbon Dioxide (22-30) mmol/L Anion Gap (5-15) MEQ/L BUN (7-17) mg/dL Creatinine (0.52-1.04) mg/dL Estimated GFR ML/MIN Glucose (74-106) mg/dL Calcium (8.4-10.2) mg/dL Magnesium (1.6-2.3) mg/dL Total Bilirubin (0.2-1.3) mg/dL AST (14-36) U/L ALT (0-35) U/L Alkaline Phosphatase (38-126) U/L Troponin I < 0.012 < 0.012 (0.000-0.034) ng/mL NT-Pro-B Natriuret Pep (0-900) pg/mL Serum Total Protein (6.3-8.2) g/dL Albumin (3.5-5.0) g/dL SARS-CoV-2 (PCR) NEGATIVE (NEGATIVE) 07/15/20 07/15/20 07/15/20 Range/Units 18:45 18:15 18:15 WBC (4.0-10.5) K/mm3 RBC (4.1-5.4) M/mm3 Hgb (12.0-16.0) gm/dl Hct (35-47) % MCV (78-100) fl MCH (26-32) pg MCHC (32-36) g/dl RDW (11.5-14.0) % Plt Count (150-450) K/mm3 MPV (7.5-11.0) fl Gran % (36.0-66.0) % Eos # (Auto) (0-0.5) Absolute Lymphs (auto) (1.0-4.6) Absolute Monos (auto) (0.0-1.3) Lymphocytes % (24.0-44.0) % Monocytes % (0.0-12.0) % Eosinophils % (0.00-5.0) % Basophils % (0.0-0.4) % Absolute Granulocytes (1.4-6.9) Basophils # (0-0.4) D-Dimer 527 H* (215-500) ng/mL Sodium 134 L (137-145) mmol/L Potassium 4.2 (3.5-5.1) mmol/L Chloride 105 (98-107) mmol/L Carbon Dioxide 21 L (22-30) mmol/L Anion Gap 12.0 (5-15) MEQ/L BUN 10 (7-17) mg/dL Creatinine 0.63 (0.52-1.04) mg/dL Estimated GFR > 60.0 ML/MIN Glucose 98 (74-106) mg/dL Calcium 8.9 (8.4-10.2) mg/dL Magnesium 2.0 (1.6-2.3) mg/dL Total Bilirubin 0.50 (0.2-1.3) mg/dL AST 41 H (14-36) U/L ALT 28 (0-35) U/L Alkaline Phosphatase 77 (38-126) U/L Troponin I < 0.012 (0.000-0.034) ng/mL NT-Pro-B Natriuret Pep 270 (0-900) pg/mL Serum Total Protein 7.1 (6.3-8.2) g/dL Albumin 3.8 (3.5-5.0) g/dL SARS-CoV-2 (PCR) (NEGATIVE) 07/15/20 Range/Units 18:15 WBC 7.6 (4.0-10.5) K/mm3 RBC 3.97 L (4.1-5.4) M/mm3 Hgb 12.1 (12.0-16.0) gm/dl Hct 37.6 (35-47) % MCV 94.7 (78-100) fl MCH 30.5 (26-32) pg MCHC 32.2 (32-36) g/dl RDW 12.3 (11.5-14.0) % Plt Count 219 (150-450) K/mm3 MPV 11.9 H (7.5-11.0) fl Gran % 54.6 (36.0-66.0) % Eos # (Auto) 0.43 (0-0.5) Absolute Lymphs (auto) 2.24 (1.0-4.6) Absolute Monos (auto) 0.77 (0.0-1.3) Lymphocytes % 29.4 (24.0-44.0) % Monocytes % 10.1 (0.0-12.0) % Eosinophils % 5.6 H (0.00-5.0) % Basophils % 0.3 (0.0-0.4) % Absolute Granulocytes 4.17 (1.4-6.9) Basophils # 0.02 (0-0.4) D-Dimer (215-500) ng/mL Sodium (137-145) mmol/L Potassium (3.5-5.1) mmol/L Chloride (98-107) mmol/L Carbon Dioxide (22-30) mmol/L Anion Gap (5-15) MEQ/L BUN (7-17) mg/dL Creatinine (0.52-1.04) mg/dL Estimated GFR ML/MIN Glucose (74-106) mg/dL Calcium (8.4-10.2) mg/dL Magnesium (1.6-2.3) mg/dL Total Bilirubin (0.2-1.3) mg/dL AST (14-36) U/L ALT (0-35) U/L Alkaline Phosphatase (38-126) U/L Troponin I (0.000-0.034) ng/mL NT-Pro-B Natriuret Pep (0-900) pg/mL Serum Total Protein (6.3-8.2) g/dL Albumin (3.5-5.0) g/dL SARS-CoV-2 (PCR) (NEGATIVE) Microbiology Results (Last 24 Hours) 07/15/20 19:00 Blood Culture Gram Stain - Pending Blood Blood Culture - Pending 07/15/20 18:15 Blood Culture Gram Stain - Pending Blood Blood Culture - Pending Orders (Last 24 Hours) Category Date Time Status Bedrest ROUTINE Activity 07/15/20 23:08 Active Code Status Order ROUTINE Care 07/15/20 23:08 Active IV Care Q6H Care 07/15/20 23:[address] in Observation ROUTINE Care 07/15/20 23:08 Active Haydee Bernal ROUTINE Care 07/15/20 23:08 Active Telemetry q4h Care 07/15/20 23:08 Active Weight,Daily 0600 Care 07/15/20 23:08 Active Nutritional Admission Screen ONCE Diet 07/15/20 23:47 Active BLOOD CULTURE Stat Lab 07/15/20 19:00 Received UA W/RFX UR CULTURE Urgent Lab 07/16/20 Uncollected Acetaminophen 325 mg [Tylenol 325 mg] Med 07/16/20 00:55 Active 650 mg PO Q4H PRN PRN Albuterol 2.5 mg/3 ml Neb [Proventil 2.5 mg/3 ml Neb Med 07/16/20 01:00 Active ] 2.5 mg IH Q6HRT Peak Expiratory Flow Rate DAILY RT 07/16/20 00:13 Active Pulse Oximetry .continuos RT 07/16/20 00:13 Active Respiratory Therapy Assessment DAILY RT 07/16/20 00:13 Active Active Visit Medications Generic Name Dose Route Start Last Admin Trade Name Freq PRN Reason Stop Dose Admin Acetaminophen 650 mg 07/16/20 00:55 07/16/20 06:36 Tylenol 325 Mg PO 08/15/20 00:54 650 mg Q4H PRN PRN Administration PAIN AND/OR FEVER Albuterol Sulfate 2.5 mg 07/16/20 01:00 07/16/20 07:16 Proventil 2.5 Mg/3 Ml Neb IH 08/15/20 00:59 2.5 mg Q6HRT ARSH Administration Home Medications Medication Instructions Recorded Confirmed Last Taken Type Fluoxetine HCl 20 mg [Prozac 20 20 mg PO DAILY 07/15/20 07/16/20 07/15/20 History MG] Gabapentin 300 mg PO HS PRN PRN 07/15/20 07/16/20 Unknown History Glipizide [Glipizide ER] 2.5 mg PO DAILY 07/15/20 07/16/20 07/15/20 History Metformin HCl 500 mg 500 mg PO BIDWM 07/15/20 07/16/20 07/15/20 History [Glucophage 500 MG] Prazosin HCl 1 mg PO HS 07/15/20 07/16/20 07/14/20 History Initialized on 07/16/20 09:11 - END OF NOTE Code(s): J44.1 - CHRONIC OBSTRUCTIVE PULMONARY DISEASE W (ACUTE) EXACERBATION (2) Chest pain Current Visit: Yes Status: Acute Qualifiers: Chest pain type: chest pain on breathing Qualified Code(s): R07.1 - Chest pain on breathing; R07.81 - Pleurodynia Code(s): R07.9 - CHEST PAIN, UNSPECIFIED
[2020-07-16] MEDS ORDERED: HUMALOG SQ PRN (12:59)
[2020-07-16] MEDS ORDERED: Glucophage 500 MG PO SCH (17:00)
[2020-07-16] MEDS ORDERED: PRAZOSIN HCL 1 MG PO SCH (22:00)
[2020-07-16] MEDS ORDERED: Requip 0.5 MG PO SCH (22:00)
[2020-07-16] MEDS ORDERED: NON-FORMULARY ITEM (Ropinirole Hcl [Requip] 1 MG) PO SCH (22:00)
[2020-07-17] MEDS: PROVENTIL 2.5 MG/3 ML NEB IH SCH ×3 (00:17→13:10)
[2020-07-17] MEDS: Nitrostat 0.4 MG Tablet SL PRN ×2 (00:40→12:12)
[2020-07-17] MEDS: TYLENOL 325 MG PO PRN (08:58)
[2020-07-17] MEDS: Protonix 20MG Tablet PO SCH (09:00)
[2020-07-17] MEDS: Prozac 20 MG PO SCH (09:00)
[2020-07-17] MEDS: Coreg 6.25 MG PO SCH (09:00)
[2020-07-17] MEDS: Glucotrol Xl 2.5 MG PO SCH (09:00)
[2020-07-17 12:13] VITALS: BP 132/68
[2020-07-17 13:13] VITALS: PULSE 74; O2SAT 97
--- NOTE | 2020-07-17 13:13 | CONS ---
CONSULT DATE: 07/17/2020 HISTORY: This is a 55 year old female who was seen because of chest pain. The patient stated that she has been having intermittent chest pains not consistent with effort, sometimes sharp, sometimes heavy but sometimes going down the left arm. Her troponin I is normal. The EKG shows nonspecific T-wave changes. There is no associated diaphoresis, nausea or vomiting. The patient stated that she has had previous cardiac catheterization which did not show any significant disease. CARDIAC RISK FACTORS: Positive for diabetes. Positive for hypertension. She is a former smoker quitting several years ago. She has hyperlipidemia. REVIEW OF SYSTEMS: FREEZER PERSON: She has a history of seizures. No chronic headache. RESPIRATORY: She has chronic obstructive pulmonary disease. GI: She has history of hiatal hernia. : Negative for dysuria or hematuria. PERIPHERAL VASCULAR: No history of DVT or claudication. MUSCULOSKELETAL: Some degenerative joint disorder. SKIN: No active dermatological problems. CONSTITUTIONAL: No significant change in weight. ENDOCRINE: No thyroid disorder. Psychiatric - Hx of Biploar and PSTD PAST SURGICAL HISTORY: Cholecystectomy. CURRENT MEDICATIONS: Albuterol inhaler, carvedilol, Prozac, glipizide, Protonix, Requip, Albuterol inhaler, gabapentin, insulin. SOCIAL HISTORY: She is . She stopped working after she injured her ankle. PHYSICAL EXAMINATION: Blood pressure 114/70, heart rate 80, respirations about 16. GENERAL: The patient is a middle aged female who is obese, alert, oriented, who is not in any form of distress. HEENT: Unremarkable. NECK: No obvious JVD. CHEST: The breath sounds are clear bilaterally. There is some tenderness along the left costochondral junction. CARDIAC: Heart tones are normal. There is no audible gallop. The rhythm is regular. ABDOMEN: Soft with normal bowel sounds. No bruit. EXTREMITIES: No significant edema with palpable distal pulses. LAB DATA AND DIAGNOSTIC TESTS: The serial troponin I within normal range. EKG shows sinus rhythm with nonspecific T-wave changes. CT scan of the chest shows no evidence of pulmonary embolism. ASSESSMENT AND PLAN: 1) Chest pains with some atypical features of angina. Continue with beta blockers. The patient will be scheduled for a coronary calcium score for screening. She has two previous cath the most recent was in 2018 and there were no significant disease. 2) Diabetes. 3) Hypertension. I will review her echocardiogram.
--- NOTE | 2020-07-17 13:19 | ECHO ---
Transthoracic echocardiographic examination and color Doppler was done on 07/17/2020. INDICATION: Chest pain. IMPRESSION: 1) NO DEFINITE REGIONAL WALL MOTION ABNORMALITY. ESTIMATED GLOBAL LEFT VENTRICULAR EJECTION FRACTION BETWEEN 50 AND 60%. 2) TRACE MITRAL REGURGITATION. 3) TRACE TRICUSPID REGURGITATION. RIGHT VENTRICULAR SYSTOLIC PRESSURE OF 32 MM OF MERCURY. The left ventricle is visualized and demonstrated adequate motion of all the segments. Estimated global left ventricular ejection fraction around 50 to 60%. The left ventricular thickness is normal. The mitral valve is seen and this opens adequately. There is trace mitral regurgitation. Left atrium is normal. The aortic valve opens adequately. The right side chambers are normal. There is trace tricuspid regurgitation with right ventricular systolic pressure of 32 mm of Mercury.
[2020-07-17] MEDS ORDERED: ECOTRIN 81 MG PO SCH (14:00)
--- NOTE | 2020-07-19 08:04 | PCM.DS ---
Discharge Summary Date of Admission: 07/15/20 23:07 Admitting Physician: CAROL ANN ALCARAZ Consults: Consults on Case 07/16/20 10:46 Consult Cardiology ROUTINE Primary Care Provider: JERE LEONG Allergies Allergies morphine Allergy (Verified 07/15/20 18:03) levofloxacin [From Levaquin] Adverse Reaction (Intermediate, Verified 07/15/20 18:03) PT STATES ONE TIME SHE HAD THIS MEDICINE AND HER VEINS ALL TURNED BRIGHT [facility] Summary - Hospital Course Hospital Course: Chief Complaint Diagnosis chest pain and short of breath for 2-3 days Allergies Allergy/AdvReac Type Severity Reaction Status Date / Time morphine Allergy Verified 07/15/20 18:03 levofloxacin [From Levaquin] AdvReac Intermediate Verified 07/15/20 18:03 Home Medications Medication Instructions Recorded Confirmed Last Taken Type Fluoxetine HCl 20 mg [Prozac 20 20 mg PO DAILY 07/15/20 07/16/20 07/15/20 History MG] Gabapentin 300 mg PO HS PRN PRN 07/15/20 07/16/20 Unknown History Glipizide [Glipizide ER] 2.5 mg PO DAILY 07/15/20 07/16/20 07/15/20 History Metformin HCl 500 mg 500 mg PO BIDWM 07/15/20 07/16/20 07/15/20 History [Glucophage 500 MG] Prazosin HCl 1 mg PO HS 07/15/20 07/16/20 07/14/20 History Omeprazole Magnesium [Prilosec Otc] 20 mg PO DAILY 07/16/20 07/16/20 Unknown History Aspirin EC 81 mg [Ecotrin 81 81 mg PO DAILY #100 tablet.ec 07/17/20 Unknown Rx mg] Current Medications Discontinued Medications Generic Name Dose Route Start Last Admin Trade Name Freq PRN Reason Stop Dose Admin Acetaminophen 650 mg 07/16/20 00:55 07/17/20 08:58 Tylenol 325 Mg PO 08/15/20 00:54 650 mg Q4H PRN PRN Administration PAIN AND/OR FEVER Albuterol Sulfate 2.5 mg 07/16/20 01:00 07/17/20 13:10 Proventil 2.5 Mg/3 Ml Neb IH 08/15/20 00:59 2.5 mg Q6HRT ARSH Administration Albuterol Sulfate Confirm 07/16/20 00:06 Proventil 2.5 Mg/3 Ml Neb Administered 07/16/20 00:07 Dose 2.5 mg IH .STK-MED ONE Albuterol Sulfate 2 puff 07/16/20 11:22 07/17/20 09:09 Ventolin Common Canister IH 08/15/20 11:21 2 puff Q6H PRN PRN Administration SHORTNESS OF BREATH Albuterol/Ipratropium 3 ml 07/15/20 18:28 07/15/20 18:33 Duoneb 0.5-3 Mg/3 Ml Neb IH 07/15/20 18:29 3 ml STAT ONE Administration Albuterol/Ipratropium Confirm 07/15/20 18:31 Duoneb 0.5-3 Mg/3 Ml Neb Administered 07/15/20 18:32 Dose 3 ml IH .STK-MED ONE Albuterol/Ipratropium 3 ml 07/16/20 11:15 Duoneb 0.5-3 Mg/3 Ml Neb IH 08/15/20 11:14 Q4H PRN PRN Wheezing/Chest Congestion Aspirin 324 mg 07/15/20 21:05 07/15/20 21:09 Baby Aspirin 81 Mg Chew PO 07/15/20 21:06 324 mg STAT ONE Administration Aspirin Confirm 07/15/20 21:08 Baby Aspirin 81 Mg Chew Administered 07/15/20 21:09 Dose 324 mg .ROUTE .STK-MED ONE Aspirin 81 mg 07/17/20 14:00 07/17/20 13:43 Ecotrin 81 Mg PO 08/16/20 13:59 81 mg DAILY ARSH Administration Carvedilol 6.25 mg 07/16/20 12:00 07/17/20 09:00 Coreg 6.25 Mg PO 08/15/20 11:59 6.25 mg BID ARSH Administration Fluoxetine HCl 20 mg 07/16/20 12:00 07/17/20 09:00 Prozac 20 Mg PO 08/15/20 11:59 20 mg DAILY ARSH Administration Gabapentin 300 mg 07/16/20 11:15 07/16/20 21:07 Neurontin 300 Mg PO 08/15/20 11:14 300 mg HS PRN PRN Administration MODERATE PAIN Glipizide 2.5 mg 07/16/20 12:00 07/17/20 09:00 Glucotrol Xl 2.5 Mg PO 08/15/20 11:59 2.5 mg DAILY ARSH Administration Ceftriaxone Sodium/Dextrose 1 g in 50 mls @ 100 mls/hr 07/15/20 21:09 07/15/20 21:56 Rocephin 1 Gm-D5w 50 Ml Bag IV 07/15/20 21:38 Infused STAT STA Infusion Azithromycin 500 mg in 250 mls @ 250 mls/hr 07/15/20 21:10 07/15/20 21:30 Zithromax 500 Mg/ 250 Ml Nacl Premix IV 07/15/20 22:09 250 mls/hr STAT ONE Administration Azithromycin Confirm 07/15/20 21:20 Zithromax 500 Mg/ 250 Ml Nacl Premix Administered 07/15/20 21:21 Dose 500 mg in 250 mls @ ud IV .STK-MED ONE Ceftriaxone Sodium/Dextrose Confirm 07/15/20 21:20 Rocephin 1 Gm-D5w 50 Ml Bag Administered 07/15/20 21:21 Dose 1 g in 50 mls @ ud IV .STK-MED ONE Insulin Human Lispro 0 unit 07/16/20 12:59 07/16/20 13:57 Humalog SQ 08/15/20 12:58 4 unit UD PRN Administration HYPERGLYCEMIA Ketorolac Tromethamine 30 mg 07/15/20 21:05 07/15/20 21:10 Toradol 30 Mg Injection IV 07/15/20 21:06 30 mg STAT ONE Administration Ketorolac Tromethamine Confirm 07/15/20 21:08 Toradol 30 Mg Injection Administered 07/15/20 21:09 Dose 30 mg .ROUTE .STK-MED ONE Meclizine HCl 25 mg 07/16/20 11:15 Antivert 25 Mg PO 08/15/20 11:14 BID PRN PRN DIZZINESS Metformin HCl 500 mg 07/16/20 17:00 Glucophage 500 Mg PO 08/15/20 16:59 BIDWM ARSH Methylprednisolone Sodium Succinate 125 mg 07/15/20 18:32 07/15/20 18:37 Solu-Medrol 125 Mg IV 07/15/20 18:33 125 mg STAT ONE Administration Methylprednisolone Sodium Succinate Confirm 07/15/20 18:35 Solu-Medrol 125 Mg Administered 07/15/20 18:36 Dose 125 mg .ROUTE .STK-MED ONE Miscellaneous Information 1 each 07/16/20 11:30 Medication Intervention PO 08/15/20 11:29 .RN TO CHECK ON ARSH Nitroglycerin 1 gm 07/15/20 21:06 07/15/20 21:10 Nitro-Bid 2% Ud Packets TOP 07/15/20 21:07 1 gm STAT ONE Administration Nitroglycerin Confirm 07/15/20 21:08 Nitro-Bid 2% Ud Packets Administered 07/15/20 21:09 Dose 1 gm .ROUTE .STK-MED ONE Nitroglycerin 0.4 mg 07/16/20 10:47 07/17/20 12:12 Nitrostat 0.4 Mg Tablet SL 08/15/20 10:46 0.4 mg Q5MIN PRN MR X 3 PRN Administration CHEST PAIN Pantoprazole Sodium 20 mg 07/16/20 12:00 07/17/20 09:00 Protonix 20mg Tablet PO 08/15/20 11:59 20 mg DAILY ARSH Administration Ropinirole HCl 1 mg 07/16/20 22:00 07/16/20 21:05 Requip 0.5 Mg PO 08/15/20 21:59 1 mg HS ARSH Administration Intake & Output (Last 24 hours) 07/16/20 07/17/20 07/18/20 07/19/20 11:59 11:59 11:59 11:59 Intake Total 480 1920 240 Output Total 200 1800 400 Balance 280 120 -160 Weight 117 kg 118.2 kg Microbiology Results (Last 24 hours) 07/16/20 09:13 Urine, Void Urine Culture - Final <10K NORMAL SKIN CATHIE PROBABLE SKIN CONTAMINANT - Vitals & Intake/Output Vital Signs: Vital Signs Temperature 97.9 F 07/17/20 11:38 Pulse Rate 74 07/17/20 13:12 Respiratory Rate 18 07/17/20 13:12 Blood Pressure 132/68 07/17/20 12:12 O2 Sat by Pulse Oximetry 97 07/17/20 13:12 Intake & Output: Intake & Output 07/16/20 07/17/20 07/18/20 07/19/20 11:59 11:59 11:59 11:59 Intake Total 480 1920 240 Output Total 200 1800 400 Balance 280 120 -160 Weight 117 kg 118.2 kg - Lab Result Diagrams: 07/16/20 03:43 07/16/20 03:43 Micro Results-Entire Visit: Microbiology 07/16/20 09:13 Urine Culture - Final Urine, Void <10K NORMAL SKIN CATHIE PROBABLE SKIN CONTAMINANT 07/15/20 19:00 Blood Culture - Preliminary Blood NO GROWTH TO DATE 07/15/20 18:15 Blood Culture - Preliminary Blood NO GROWTH TO DATE - Radiology Exams Ordered Rad Exams-Entire Visit: Radiology Procedures Category Date Time Status ECHO W/2D AND DOPPLER [US] Routine Exams 07/17/20 09:30 Draft - Procedures and Test Procedures and Tests throughout Hospitalization: Therapy Orders & Screens 07/15/20 18:36 Respiratory Therapy Assessment DAILY Comment: 07/15/20 18:41 Peak Expiratory Flow Rate ONCE Comment: Reason For Exam: 07/16/20 00:13 Peak Expiratory Flow Rate DAILY Comment: Reason For Exam: Diagnosis: COPD exacerbation Respiratory Therapy Assessment DAILY Comment: Diagnosis: COPD exacerbation Discharge Exam General Appearance: no apparent distress, alert Neurologic Exam: alert, oriented x 3, cooperative, normal mood/affect, nml cerebellar function, sensation nml, No motor deficits Eye Exam: PERRL, EOMI, eyes nml inspection Ears, Nose, Throat Exam: normal ENT inspection, pharynx normal, moist mucous membranes Neck Exam: normal inspection, non-tender, supple, full range of motion Respiratory Exam: normal breath sounds, lungs clear, No respiratory distress Cardiovascular Exam: regular rate/rhythm, normal heart sounds Gastrointestinal/Abdomen Exam: soft, No tenderness, No mass Pelvic Exam: deferred Rectal Exam: deferred Back Exam: normal inspection, normal range of motion, No CVA tenderness, No vertebral tenderness Extremity Exam: normal inspection, normal range of motion Skin Exam: normal color, warm, dry Final Diagnosis/Problem List - Final Discharge Diagnosis/Problem (1) COPD exacerbation Status: Resolved Code(s): J44.1 - CHRONIC OBSTRUCTIVE PULMONARY DISEASE W (ACUTE) EXACERBATION (2) Chest pain Status: Resolved Code(s): R07.9 - CHEST PAIN, UNSPECIFIED - Discharge Discharge Date: 07/17/20 Disposition: Home, Self-Care Condition: Stable Prescriptions: New Aspirin EC 81 mg [Ecotrin 81 mg] 81 mg PO DAILY #100 tablet.ec Continue Ropinirole HCl [Requip] 1 mg PO HS Meclizine HCl 25 mg [Antivert 25 mg] 25 mg PO BID PRN PRN PRN Reason: Dizziness Albuterol Sulfate [Ventolin Hfa] 8 gm IH Q6-8HPRN PRN PRN Reason: Shortness Of Breath carvediloL [Carvedilol] 6.25 mg PO BID Albuterol/Ipratropium 3ml Neb* [DUONEB 0.5-3 MG/3 ml Neb] 3 ml NEBULIZE Q4H PRN PRN #1 box PRN Reason: Wheezing/Chest Congestion Gabapentin 300 mg PO HS PRN PRN PRN Reason: Moderate Pain Metformin HCl 500 mg [Glucophage 500 MG] 500 mg PO BIDWM Glipizide [Glipizide ER] 2.5 mg PO DAILY Fluoxetine HCl 20 mg [Prozac 20 MG] 20 mg PO DAILY Prazosin HCl 1 mg PO HS Omeprazole Magnesium [Prilosec Otc] 20 mg PO DAILY Outpatient Orders: LIPID PROFILE Time Frame: 06/23/20, Facility: [facility], Location: LABORATORY Instructions: Chest Pain Additional Instructions: Coronary calcium score scheduled at [facility] for 10:00a.m. on 07/21/20 no caffiene,no nicotine, npo after midnight the night before. Follow up with: LIZ RAMSEY [ACTIVE STAFF] - 07/30/20 1:30 pm CAROL ANN ALCARAZ MD [ACTIVE STAFF] - 07/24/20 10:45 am (at [place]) Forms: Discharge Instructions
== END 2020-07-17 13:50 | disposition home or self-care (01) ==
LOC: ED 18:01 → MED SURG 23:07
PROVIDERS: ADMIT General Practice; ATTEND General Practice
DX: J44.1 Chronic obstructive pulmonary disease with (acute) exacerbation (principal); R07.9 Chest pain, unspecified; E11.9 Type 2 diabetes mellitus without complications; I10 Essential (primary) hypertension; E78.5 Hyperlipidemia, unspecified; J44.9 Chronic obstructive pulmonary disease, unspecified; Z79.899 Other long term (current) drug therapy; E78.00 Pure hypercholesterolemia, unspecified
CPT/HCPCS: 36000; 36415; 71045; 71260; 80053; 81001; 82962; 83036; 83735; 83880; 84484; 85025; 85027; 85379; 87040; 87086; 93005; 93041; 93268; 93306; 94150; 94640; 94760; 94762; 96365; 96368; 96374; 96375; 99285; G0378; U0003; J0456; J0696; J1817; J1885; J2930; J7609; A9270-GY

== ENCOUNTER 2020-07-19 23:52 | Emergency (ER) | payer SELFPAY ==
[2020-07-20] MEDS ORDERED: Zofran 4 MG/2 ML VIAL IV ONE (00:09)
--- NOTE | 2020-07-20 00:21 | ERPHSYRPT ---
- History of Present Illness Time Seen by Provider: 07/20/20 00:06 Historian: patient, EMS Exam Limitations: no limitations Patient Subjective Stated Complaint: pt c/o chest pain radiating to back and rt arm Triage Nursing Assessment: pt c/o chest pain radiating to rt arm and back. Pt states, "My found me passed out on the bathroom floor, I hit my head-the right side of head-on the wall". Pt was vomiting when she passed out. Lungs in sp/exp wheezes thoughout. Heart tones reg, abd lg, soft with active bs x4 quad, nontender. Physician History: 55 years old female with history of hypertension, hyperlipidemia, diabetes mellitus, COPD, intermittent chest pain who was recently admitted for rule out with negative troponins and echo, was evaluated by cardiology and recommended CTA outpatient presented in the ER with chief complaint of sudden onset substernal moderate to severe intensity dull aching to pressure sensation with radiation to the back and right arm which got worse after ambulation, patient s tarted feeling nauseated and vomited once with dry heaving and passed out. On the way down she hit her head against the wall, unknown downtime. No confusion upon waking up, no seizure-like activity noticed. Currently she is having 6/10 intensity pain. Patient reports shortness of breath which is at her baseline COPD. No fever or chills reported. Denies any sick contact. Timing/Duration: hour(s), resolved prior to arrival, sudden, improved Activities at Onset: rest Quality: fullness, pressure Location: substernal, central Chest Pain Radiation: arm, back Severity of Pain-Max: moderate Severity of Pain-Current: moderate Modifying Factors: Improves With: antacids, movement Associated Symptoms: nausea, vomiting, syncope Prior Chest Pain/Cardiac Workup: echocardiography, recently seen/treated Nitro Today/Relief: no nitro taken today Aspirin Treatment Today: 81 mg x 1 Allergies/Adverse Reactions: morphine Allergy (Verified 07/20/20 00:10) levofloxacin [From Levaquin] Adverse Reaction (Intermediate, Verified 07/20/20 00:10) PT STATES ONE TIME SHE HAD THIS MEDICINE AND HER VEINS ALL TURNED BRIGHT RED Home Medications: Albuterol Sulfate [Ventolin Hfa] 8 gm IH Q6-8HPRN PRN 02/21/18 [History] Meclizine HCl 25 mg [Antivert 25 mg] 25 mg PO BID PRN PRN 02/21/18 [History] Ropinirole HCl [Requip] 1 mg PO HS 02/21/18 [History] carvediloL [Carvedilol] 6.25 mg PO BID 02/22/18 [History] Fluoxetine HCl 20 mg [Prozac 20 MG] 20 mg PO DAILY 07/15/20 [History] Gabapentin 300 mg PO HS PRN PRN 07/15/20 [History] Glipizide [Glipizide ER] 2.5 mg PO DAILY 07/15/20 [History] Metformin HCl 500 mg [Glucophage 500 MG] 1,000 mg PO DAILY 07/15/20 [History] Prazosin HCl 1 mg PO HS 07/15/20 [History] Omeprazole Magnesium [Prilosec Otc] 20 mg PO DAILY 07/16/20 [History] Hx Tetanus, Diphtheria Vaccination/Date Given: Yes Hx Influenza Vaccination/Date Given: No Hx Pneumococcal Vaccination/Date Given: Yes Immunizations Up to Date: Yes Travel Risk - International Travel Have you traveled outside of the country in past 3 weeks: No - Coronavirus Screening Symptoms: Shortness of Breath, Headaches/Body Aches/Fatigue - Review of Systems Constitutional: No Symptoms Eyes: No Symptoms Ears, Nose, & Throat: No Symptoms Respiratory: No Symptoms, Dyspnea, Wheezing Cardiac: Chest Pain Abdominal/Gastrointestinal: Nausea, Vomiting, No Abdominal Pain Genitourinary Symptoms: No Symptoms Musculoskeletal: No Symptoms Skin: No Symptoms Neurological: No Symptoms Psychological: No Symptoms Endocrine: No Symptoms Hematologic/Lymphatic: No Symptoms Immunological/Allergic: No Symptoms - Past Medical History Pertinent Past Medical History: Yes Neurological History: Seizures ENT History: Cataracts Cardiac History: High Cholesterol, Hypertension, Other Respiratory History: Asthma, Bronchitis, COPD Endocrine Medical History: Diabetes Type II, Other Musculoskeletal History: Arthritis, Osteoarthritis GI Medical History: GERD History: No Pertinent History Psycho-Social History: Anxiety, Depression Female Reproductive Disorders: No Pertinent History Other Medical History: 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 LEAKING HEART VALVE - Past Surgical History Past Surgical History: Yes Neuro Surgical History: No Pertinent History Cardiac: Angioplasty, Cardiac Catheterization Respiratory: No Pertinent History Gastrointestinal: Cholecystectomy Genitourinary: No Pertinent History Musculoskeletal: No Pertinent History, Orthopedic Surgery Female Surgical History: Tubal Ligation Other Surgical History: HEART CATH, left rotator cuff in oct 2015. "leaky heart valve"; right thumb surgery - Social History Smoking Status: Never smoker How long have you smoked: 6 YEARS Exposure to second hand smoke: Yes Alcohol Use: None Drug Use: none Patient Lives Alone: No Significant Family History: no pertinent family hx - Female History Hx Now: No - Nursing Vital Signs Nursing Vital Signs: Initial Vital Signs Temperature 97.8 F 07/19/20 23:54 Pulse Rate 77 07/19/20 23:54 Respiratory Rate 18 07/19/20 23:54 Blood Pressure 156/105 07/19/20 23:54 O2 Sat by Pulse Oximetry 99 07/19/20 23:54 Pain Scale Pain Intensity 10 - Physical Exam General Appearance: no apparent distress, alert, anxiety Eye Exam: PERRL/EOMI, eyes nml inspection Ears, Nose, Throat Exam: normal ENT inspection, TMs normal, pharynx normal Neck Exam: normal inspection, non-tender, supple, full range of motion Respiratory Exam: normal breath sounds, lungs clear Cardiovascular Exam: regular rate/rhythm, normal heart sounds Gastrointestinal/Abdomen Exam: soft, normal bowel sounds, No tenderness Back Exam: normal inspection, normal range of motion Extremity Exam: normal inspection, normal range of motion Neurologic Exam: alert, oriented x 3, cooperative, record maker II-XII nml as tested, no rmal mood/affect, nml cerebellar function, sensation nml, No motor deficits Skin Exam: normal color SpO2 Interpretation: normal SpO2: 99 O2 Delivery: Room Air - Course Nursing assessment & vital signs reviewed: Yes EKG Interpreted by Me: RATE (77), Sinus Rhythm, NORMAL AXIS, NORMAL INTERVALS, NORMAL QRS, Other (Nonspecific T wave changes) Ordered Tests: Active Orders 24 hr Category Date Time Status EKG-ER Only STAT Care 07/20/20 00:09 Active IV Insertion STAT Care 07/20/20 00:09 Active NPO (ED) STAT Care 07/20/20 00:09 Active CHEST 1 VIEW (PORTABLE) Stat Exams 07/20/20 00:10 Taken HEAD WITHOUT CONTRAST [CT] Stat Exams 07/20/20 00:12 Taken BNP [NT PRO BNP] Stat Lab 07/20/20 00:30 Completed CBC W DIFF Stat Lab 07/20/20 00:30 Completed CMP Stat Lab 07/20/20 00:30 Completed LIPASE Stat Lab 07/20/20 00:30 Completed TROPONIN Q3H Lab 07/20/20 00:30 Completed TROPONIN Q3H Lab 07/20/20 03:15 Ordered TROPONIN Q3H Lab 07/20/20 06:15 Ordered TROPONIN Q3H Lab 07/20/20 09:15 Ordered TROPONIN Q3H Lab 07/20/20 12:15 Ordered UA W/RFX UR CULTURE Stat Lab 07/20/20 01:10 Completed Respiratory Therapy Assessment DAILY RT 07/20/20 01:21 Active Medication Summary Discontinued Medications Generic Name Dose Route Start Last Admin Trade Name Freq PRN Reason Stop Dose Admin Albuterol/Ipratropium 3 ml 07/20/20 01:14 07/20/20 01:17 Duoneb 0.5-3 Mg/3 Ml Neb IH 07/20/20 01:15 3 ml STAT ONE Administration Albuterol/Ipratropium Confirm 07/20/20 01:15 Duoneb 0.5-3 Mg/3 Ml Neb Administered 07/20/20 01:16 Dose 3 ml IH .STK-MED ONE Aspirin 324 mg 07/20/20 01:14 07/20/20 01:17 Baby Aspirin 81 Mg Chew PO 07/20/20 01:15 324 mg STAT ONE Administration Nitroglycerin 1 gm 07/20/20 01:15 07/20/20 01:19 Nitro-Bid 2% Ud Packets TOP 07/20/20 01:16 0.5 gm STAT ONE Administration Nitroglycerin Confirm 07/20/20 01:18 Nitro-Bid 2% Ud Packets Administered 07/20/20 01:19 Dose 1 gm .ROUTE .STK-MED ONE Ondansetron HCl 4 mg 07/20/20 00:09 07/20/20 00:31 Zofran 4 Mg/2 Ml Vial IV 07/20/20 00:10 4 mg STAT ONE Administration Ondansetron HCl Confirm 07/20/20 00:30 Zofran 4 Mg/2 Ml Vial Administered 07/20/20 00:31 Dose 4 mg .ROUTE .STK-MED ONE Lab/Rad Data: Laboratory Result Diagrams 07/20/20 00:30 07/20/20 00:30 Laboratory Results 07/20/20 07/20/20 07/20/20 Range/Units 01:10 00:30 00:30 WBC (4.0-10.5) K/mm3 RBC (4.1-5.4) M/mm3 Hgb (12.0-16.0) gm/dl Hct (35-47) % MCV (78-100) fl MCH (26-32) pg MCHC (32-36) g/dl RDW (11.5-14.0) % Plt Count (150-450) K/mm3 MPV (7.5-11.0) fl Gran % (36.0-66.0) % Eos # (Auto) (0-0.5) Absolute Lymphs (auto) (1.0-4.6) Absolute Monos (auto) (0.0-1.3) Lymphocytes % (24.0-44.0) % Monocytes % (0.0-12.0) % Eosinophils % (0.00-5.0) % Basophils % (0.0-0.4) % Absolute Granulocytes (1.4-6.9) Basophils # (0-0.4) Sodium (137-145) mmol/L Potassium (3.5-5.1) mmol/L Chloride (98-107) mmol/L Carbon Dioxide (22-30) mmol/L Anion Gap (5-15) MEQ/L BUN (7-17) mg/dL Creatinine (0.52-1.04) mg/dL Estimated GFR ML/MIN Glucose (74-106) mg/dL Calcium (8.4-10.2) mg/dL Total Bilirubin (0.2-1.3) mg/dL AST (14-36) U/L ALT (0-35) U/L Alkaline Phosphatase (38-126) U/L Troponin I < 0.012 (0.000-0.034) ng/mL NT-Pro-B Natriuret Pep 164 (0-900) pg/mL Serum Total Protein (6.3-8.2) g/dL Albumin (3.5-5.0) g/dL Lipase (23-300) U/L Urine Color YELLOW (YELLOW) Urine Appearance CLEAR (CLEAR) Urine pH 6.0 (5-6) Ur Specific Emerson 1.011 (1.005-1.025) Urine Protein NEGATIVE (Negative) Urine Ketones NEGATIVE (NEGATIVE) Urine Blood NEGATIVE (0-5) Stu/ul Urine Nitrite NEGATIVE (NEGATIVE) Urine Bilirubin NEGATIVE (NEGATIVE) Urine Urobilinogen 4 (0-1) mg/dL Ur Leukocyte Esterase TRACE (NEGATIVE) Urine WBC (Auto) NONE (0-5) /HPF Urine RBC (Auto) NONE (0-2) /HPF U Epithel Cells (Auto) NONE (FEW) /HPF Urine Bacteria (Auto) NONE SEEN (NEGATIVE) /HPF Urine Mucus (Auto) SLIGHT (NEGATIVE) /HPF Urine Culture Reflexed NO (NO) Urine Glucose NEGATIVE (NEGATIVE) mg/dL 07/20/20 07/20/20 Range/Units 00:30 00:30 WBC 9.2 (4.0-10.5) K/mm3 RBC 3.97 L (4.1-5.4) M/mm3 Hgb 12.1 (12.0-16.0) gm/dl Hct 37.1 (35-47) % MCV 93.5 (78-100) fl MCH 30.5 (26-32) pg MCHC 32.6 (32-36) g/dl RDW 12.3 (11.5-14.0) % Plt Count 232 (150-450) K/mm3 MPV 11.3 H (7.5-11.0) fl Gran % 54.3 (36.0-66.0) % Eos # (Auto) 0.55 H (0-0.5) Absolute Lymphs (auto) 2.76 (1.0-4.6) Absolute Monos (auto) 0.87 (0.0-1.3) Lymphocytes % 30.0 (24.0-44.0) % Monocytes % 9.4 (0.0-12.0) % Eosinophils % 6.0 H (0.00-5.0) % Basophils % 0.3 (0.0-0.4) % Absolute Granulocytes 5.00 (1.4-6.9) Basophils # 0.03 (0-0.4) Sodium 135 L (137-145) mmol/L Potassium 4.3 (3.5-5.1) mmol/L Chloride 103 (98-107) mmol/L Carbon Dioxide 27 (22-30) mmol/L Anion Gap 9.3 (5-15) MEQ/L BUN 12 (7-17) mg/dL Creatinine 0.80 (0.52-1.04) mg/dL Estimated GFR > 60.0 ML/MIN Glucose 128 H (74-106) mg/dL Calcium 9.0 (8.4-10.2) mg/dL Total Bilirubin 0.50 (0.2-1.3) mg/dL AST 26 (14-36) U/L ALT 27 (0-35) U/L Alkaline Phosphatase 90 (38-126) U/L Troponin I (0.000-0.034) ng/mL NT-Pro-B Natriuret Pep (0-900) pg/mL Serum Total Protein 7.2 (6.3-8.2) g/dL Albumin 3.9 (3.5-5.0) g/dL Lipase 90 (23-300) U/L Urine Color (YELLOW) Urine Appearance (CLEAR) Urine pH (5-6) Ur Specific Emerson (1.005-1.025) Urine Protein (Negative) Urine Ketones (NEGATIVE) Urine Blood (0-5) Stu/ul Urine Nitrite (NEGATIVE) Urine Bilirubin (NEGATIVE) Urine Urobilinogen (0-1) mg/dL Ur Leukocyte Esterase (NEGATIVE) Urine WBC (Auto) (0-5) /HPF Urine RBC (Auto) (0-2) /HPF U Epithel Cells (Auto) (FEW) /HPF Urine Bacteria (Auto) (NEGATIVE) /HPF Urine Mucus (Auto) (NEGATIVE) /HPF Urine Culture Reflexed (NO) Urine Glucose (NEGATIVE) mg/dL - Progress Progress: improved, re-examined Air Movement: good Progress Note: 07/20/20 01:27 She is given aspirin along with Nitropaste and DuoNeb, on reevaluation feeling better but still have substernal pressure. EKG showed sinus rhythm with no acute ST elevations. Negative initial troponins. Chest x-ray with no acute cardiopulmonary findings. Unremarkable chemistries. CT head is negative and has nonfocal neuro exam. I believe she has a vasovagal syncopal episode. Patient has recently been admitted but does not have any stress test or CTA coronaries done. Discussed with Dr. Olsen, recommended transfer to facility with services for her CTA coronaries/stress test over the weekend. Discussed with Dr. Chapman & patient is accepted for transfer at [facility]. Blood Culture(s) Obtained: No Antibiotics given: No Discussed with : Dao Counseled pt/family regarding: lab results, diagnosis, rad results - Departure Departure Disposition: Transfer Clinical Impression: Precordial chest pain, Vasovagal syncope Condition: Stable Critical Care Time: No Referrals: JERE LEONG [Primary Care Provider] -
[2020-07-20] MEDS ORDERED: Zofran 4 MG/2 ML VIAL ONE (00:30)
[2020-07-20 00:39] LABS: BASOPHIL % 0.3 % (0.0-0.4); Basophil (Absolute #) 0.03 (0-0.4); Eosinophil (Absolute #) 0.55 (0-0.5); Hematocrit 37.1 % (35-47); Hemoglobin 12.1 gm/dl (12.0-16.0); Lymphocyte (Absolute #) 2.76 (1.0-4.6); Mean Cell Volume 93.5 fl (78-100); Mean Corpuscular Hemoglobin 30.5 pg (26-32); Mean Corpuscular Hgb Concent. 32.6 g/dl (32-36); Mean Platelet Volume 11.3 fl (7.5-11.0); Monocyte (Absolute #) 0.87 (0.0-1.3); Monocytes % 9.4 % (0.0-12.0); Neutrophil % 54.3 % (36.0-66.0); Platelet Count 232 K/mm3 (150-450); Red Blood Count 3.97 M/mm3 (4.1-5.4); Red Cell Distribution Width 12.3 % (11.5-14.0); White Blood Count 9.2 K/mm3 (4.0-10.5)
[2020-07-20 00:49] LABS: ALBUMIN 3.9 g/dL (3.5-5.0); ALKALINE PHOSPHATASE 90 U/L (38-126); BLOOD UREA NITROGEN 12 mg/dL (7-17); Carbon Dioxide 27 mmol/L (22-30); EST GLOMERULAR FILTRATION RATE > 60.0 ML/MIN; Glucose 128 mg/dL (74-106); LIPASE 90 U/L (23-300); Potassium 4.3 mmol/L (3.5-5.1); SGOT/AST 26 U/L (14-36); SGPT/ALT 27 U/L (0-35); SODIUM 135 mmol/L (137-145); Total Protein 7.2 g/dL (6.3-8.2)
[2020-07-20 00:51] LABS: CHLORIDE 103 mmol/L (98-107)
[2020-07-20 01:00] LABS: ANION GAP 9.3 MEQ/L (5-15)
[2020-07-20] MEDS ORDERED: DUONEB 0.5-3 MG/3 ml Neb IH ONE ×2 (01:14→01:15)
[2020-07-20] MEDS ORDERED: BABY ASPIRIN 81 MG CHEW PO ONE (01:14)
[2020-07-20] MEDS ORDERED: NITRO-BID 2% UD PACKETS TOP ONE (01:15)
[2020-07-20] MEDS ORDERED: NITRO-BID 2% UD PACKETS ONE (01:18)
[2020-07-20 01:20] LABS: Appearance CLEAR (CLEAR); Bilirubin NEGATIVE (NEGATIVE); Blood NEGATIVE Ery/ul (0-5); Glucose NEGATIVE (NEGATIVE); Ketones NEGATIVE (NEGATIVE); Leukocyte Esterase TRACE (NEGATIVE); Mucus SLIGHT /HPF (NEGATIVE); Nitrite NEGATIVE (NEGATIVE); Protein,Urine Dip NEGATIVE (Negative); Specific Gravity 1.011 (1.005-1.025); Urobilinogen 4 mg/dL (0-1)
[2020-07-20 01:25] LABS: Bacteria NONE SEEN /HPF (NEGATIVE)
[2020-07-20 02:46] VITALS: BP 124/74; PULSE 82; O2SAT 98
--- NOTE | 2020-07-20 20:05 | XRAY ---
Indication: Chest pain. Syncope. Comparison: July 15, 2020. Portable apical lordotic chest again demonstrates normal heart and lungs. No new/acute findings.
--- NOTE | 2020-07-20 20:07 | XRAY ---
Indication: Syncope. Chest pain and hypertension. Multiple contiguous axial images obtained through the head without contrast. Comparison: May 25, 2018. Again normal appearing brain parenchyma, ventricles, and bony calvarium. Visualized paranasal sinuses and mastoid air cells are clear. Impression: Continued normal CT head without contrast exam. Comment: Preliminary interpretation was made by [facility]. No critical discrepancy.
== END 2020-07-20 02:20 | disposition short-term general hospital (02) ==
LOC: ED 23:52
DX: R07.2 Precordial pain (principal); R55 Syncope and collapse
CPT/HCPCS: 36000; 36415; 70450; 71045; 80053; 81001; 83690; 83880; 84484; 85025; 93005; 94640; 96374; 99285; J2405; A9270-GY

== ENCOUNTER 2020-09-01 09:54 | Emergency (ER) | payer SELFPAY ==
[2020-09-01 11:51] LABS: Absolute Neutrophil Ct (ANC) 2.05 (1.4-6.9); BASOPHIL % 0.8 % (0.0-0.4); Basophil (Absolute #) 0.04 (0-0.4); Eosinophil % 4.1 % (0.00-5.0); Hematocrit 41.6 % (35-47); Hemoglobin 13.3 gm/dl (12.0-16.0); Lymphocyte (Absolute #) 1.84 (1.0-4.6); Lymphocytes % 37.6 % (24.0-44.0); Mean Cell Volume 93.9 fl (78-100); Mean Platelet Volume 11.4 fl (7.5-11.0); Monocyte (Absolute #) 0.77 (0.0-1.3); Monocytes % 15.7 % (0.0-12.0); Neutrophil % 41.8 % (36.0-66.0); Platelet Count 225 K/mm3 (150-450); Red Blood Count 4.43 M/mm3 (4.1-5.4); Red Cell Distribution Width 12.4 % (11.5-14.0); White Blood Count 4.9 K/mm3 (4.0-10.5)
[2020-09-01 11:58] LABS: INR 1.1 (0.8-3.0); PROTIME 12.4 SECONDS (9.95-12.35)
[2020-09-01 12:00] LABS: PTT 26.6 SECONDS (25.3-37.0)
--- NOTE | 2020-09-01 12:11 | XRAY ---
Indication: Fever and cough. Suspect Covid 19. Multiple contiguous axial images obtained through the chest without contrast. Comparison: July 15, 2020. Lungs are inflated and clear. Heart is not enlarged. Aorta is normal in course and caliber. No pathologic mediastinal lymphadenopathy. Bony thorax intact again with mild degenerative changes throughout the spine. Limited upper abdomen again demonstrates fatty liver and cholecystectomy clips. Impression: 1. Continued negative CT chest without contrast exam. 2. Stable incidental fatty liver and chronic bony findings.
[2020-09-01 12:17] LABS: ALBUMIN 4.4 g/dL (3.5-5.0); ALKALINE PHOSPHATASE 88 U/L (38-126); ANION GAP 11.9 MEQ/L (5-15); BLOOD UREA NITROGEN 11 mg/dL (7-17); CHLORIDE 104 mmol/L (98-107); Calcium 9.3 mg/dL (8.4-10.2); Carbon Dioxide 22 mmol/L (22-30); Creatinine 1 0.68 mg/dL (0.52-1.04); EST GLOMERULAR FILTRATION RATE > 60.0 ML/MIN; Glucose 119 mg/dL (74-106); NT PRO BNP 68.5 pg/mL (0-900); Potassium 4.5 mmol/L (3.5-5.1); SGOT/AST 42 U/L (14-36); SGPT/ALT 34 U/L (0-35); SODIUM 133 mmol/L (137-145); Total Protein 7.9 g/dL (6.3-8.2)
--- NOTE | 2020-09-01 12:34 | ERPHSYRPT ---
- History of Present Illness Source: patient Exam Limitations: no limitations Patient Subjective Stated Complaint: Fever Triage Nursing Assessment: Patient ambulated back to ED and transferred self to bed. Patient A+O X3. Patient's skin pink, warm and dry. Patient complains of fever as high as 101.5, cough, SOB, body aches, cough, diarrhea and loss of smell and taste. Patient states her granddaughters that live with her tested positive for Covid on Tuesday. Patient states she was seen in Respiratory clinic on Tuesday with pending covid results. Lungs noted to have audible wheezing. Patient complains of body aches 03/30. Physician History: 55 yo wf w cough x3 days/nonproductive/ST/fever/myalgias/arthralgias/N/D wo chest pain/vomiting. Pt's grandchildren who have Covid19 live w her. Timing/Duration: day(s) (3 days) Cough Quality/Degree: moderate, dry cough Possible Cause: no prior episodes Modifying Factors: Improves With: nothing Associated Symptoms: fever, chills, cough, headache, muscle aches, nasal drai nage, sore throat, No chest pain/soreness, No dizziness, No earache, No facial pain, No lightheadedness, No nasal congestion, No shortness of breath, No sinus infection, No wheezing Allergies/Adverse Reactions: morphine Allergy (Verified 09/01/20 11:10) levofloxacin [From Levaquin] Adverse Reaction (Intermediate, Verified 09/01/20 11:10) PT STATES ONE TIME SHE HAD THIS MEDICINE AND HER VEINS ALL TURNED BRIGHT RED Home Medications: Albuterol Sulfate [Ventolin Hfa] 8 gm IH Q6-8HPRN PRN 02/21/18 [History] Meclizine HCl 25 mg [Antivert 25 mg] 25 mg PO BID PRN PRN 02/21/18 [History] Ropinirole HCl [Requip] 1 mg PO HS 02/21/18 [History] carvediloL [Carvedilol] 6.25 mg PO BID 02/22/18 [History] Fluoxetine HCl 20 mg [Prozac 20 MG] 20 mg PO DAILY 07/15/20 [History] Gabapentin 300 mg PO HS PRN PRN 07/15/20 [History] Glipizide [Glipizide ER] 2.5 mg PO DAILY 07/15/20 [History] Metformin HCl 500 mg [Glucophage 500 MG] 1,000 mg PO DAILY 07/15/20 [History] Prazosin HCl 1 mg PO HS 07/15/20 [History] Omeprazole Magnesium [Prilosec Otc] 20 mg PO DAILY 07/16/20 [History] Hx Tetanus, Diphtheria Vaccination/Date Given: Yes Hx Influenza Vaccination/Date Given: No Hx Pneumococcal Vaccination/Date Given: Yes Immunizations Up to Date: Yes Travel Risk - International Travel Have you traveled outside of the country in past 3 weeks: No (N) If Yes, where;: N - Coronavirus Screening Are you exhibiting any of the following symptoms?: No Close contact with a COVID-19 positive Pt in past 14-21 Days: No - Review of Systems Constitutional: Fever, Chills, Fatigue, Weakness Eyes: No Symptoms Ears, Nose, & Throat: Nose Discharge, Throat Pain Respiratory: Cough Cardiac: No Symptoms Abdominal/Gastrointestinal: No Symptoms Genitourinary Symptoms: No Symptoms Musculoskeletal: No Symptoms Skin: No Symptoms Neurological: No Symptoms Psychological: No Symptoms Endocrine: No Symptoms Hematologic/Lymphatic: No Symptoms Immunological/Allergic: No Symptoms - Past Medical History Pertinent Past Medical History: Yes Neurological History: Seizures ENT History: Cataracts Cardiac History: High Cholesterol, Hypertension, Other Respiratory History: Asthma, Bronchitis, COPD Endocrine Medical History: Diabetes Type II, Other Musculoskeletal History: Arthritis, Osteoarthritis GI Medical History: GERD History: No Pertinent History Psycho-Social History: Anxiety, Depression Female Reproductive Disorders: No Pertinent History Other Medical History: nerve damage in the right foot, NECK pinched nerve; scoliosis. LEAKING HEART VALVE - Past Surgical History Past Surgical History: Yes Neuro Surgical History: No Pertinent History Cardiac: Angioplasty, Cardiac Catheterization Respiratory: No Pertinent History Gastrointestinal: Cholecystectomy Genitourinary: No Pertinent History Musculoskeletal: No Pertinent History, Orthopedic Surgery Female Surgical History: Tubal Ligation Other Surgical History: HEART CATH, left rotator cuff in oct 2015. "leaky heart valve"; right thumb surgery - Social History Smoking Status: Never smoker How long have you smoked: 6 YEARS Exposure to second hand smoke: Yes Alcohol Use: None Drug Use: none Patient Lives Alone: No Significant Family History: no pertinent family hx - Female History Hx Now: No - Nursing Vital Signs Nursing Vital Signs: Initial Vital Signs Pulse Rate 75 09/01/20 11:12 Respiratory Rate 20 09/01/20 11:12 Blood Pressure 138/76 09/01/20 11:12 O2 Sat by Pulse Oximetry 97 09/01/20 11:12 Pain Scale Pain Intensity 5 - Physical Exam General Appearance: no apparent distress Eye Exam: PERRL/EOMI, eyes nml inspection Ears, Nose, Throat Exam: normal ENT inspection, TMs normal, pharynx normal, moist mucous membranes Neck Exam: normal inspection, non-tender, supple, full range of motion, No meningismus, No mass, No Brudzinski, No Kernig's Respiratory Exam: normal breath sounds, lungs clear, airway intact, No respiratory distress Cardiovascular Exam: regular rate/rhythm, normal heart sounds, normal peripheral pulses, No murmur Gastrointestinal/Abdomen Exam: soft, normal bowel sounds, No tenderness Pelvic Exam: not done Rectal Exam: deferred Back Exam: normal inspection, normal range of motion, No CVA tenderness, No vertebral tenderness Extremity Exam: normal inspection, normal range of motion Neurologic Exam: alert, oriented x 3, cooperative, court stenographer II-XII nml as tested, normal mood/affect, nml cerebellar function, nml station & gait, sensation nml, No motor deficits, No sensory deficit Skin Exam: normal color, warm, dry, No rash Lymphatic Exam: No adenopathy SpO2 Interpretation: normal SpO2: 97 O2 Delivery: Room Air - Course Nursing assessment & vital signs reviewed: Yes - CT Exams Chest CT Interpretation: Discussed w/radiologist ([place]/Nothing acute) Ordered Tests: Active Orders 24 hr Category Date Time Status CHEST WITHOUT CONTRAST [CT] Stat Exams 09/01/20 11:23 Completed CBC W DIFF Stat Lab 09/01/20 11:35 Completed CMP Stat Lab 09/01/20 11:35 Completed NT PRO BNP Stat Lab 09/01/20 11:35 Completed PROTIME WITH INR Stat Lab 09/01/20 11:35 Completed PTT Stat Lab 09/01/20 11:35 Completed TROPONIN Q3H Lab 09/01/20 11:35 Completed TROPONIN Q3H Lab 09/01/20 14:30 Ordered TROPONIN Q3H Lab 09/01/20 17:30 Ordered TROPONIN Q3H Lab 09/01/20 20:30 Ordered TROPONIN Q3H Lab 09/01/20 23:30 Ordered Lab/Rad Data: Laboratory Result Diagrams 09/01/20 11:35 09/01/20 11:35 Laboratory Results 09/01/20 09/01/20 09/01/20 Range/Units 11:35 11:35 11:35 WBC (4.0-10.5) K/mm3 RBC (4.1-5.4) M/mm3 Hgb (12.0-16.0) gm/dl Hct (35-47) % MCV (78-100) fl MCH (26-32) pg MCHC (32-36) g/dl RDW (11.5-14.0) % Plt Count (150-450) K/mm3 MPV (7.5-11.0) fl Gran % (36.0-66.0) % Eos # (Auto) (0-0.5) Absolute Lymphs (auto) (1.0-4.6) Absolute Monos (auto) (0.0-1.3) Lymphocytes % (24.0-44.0) % Monocytes % (0.0-12.0) % Eosinophils % (0.00-5.0) % Basophils % (0.0-0.4) % Absolute Granulocytes (1.4-6.9) Basophils # (0-0.4) PT 12.4 H (9.95-12.35) SECONDS INR 1.10 (0.8-3.0) APTT 26.6 (25.3-37.0) SECONDS Sodium 133 L (137-145) mmol/L Potassium 4.5 (3.5-5.1) mmol/L Chloride 104 (98-107) mmol/L Carbon Dioxide 22 (22-30) mmol/L Anion Gap 11.9 (5-15) MEQ/L BUN 11 (7-17) mg/dL Creatinine 0.68 (0.52-1.04) mg/dL Estimated GFR > 60.0 ML/MIN Glucose 119 H (74-106) mg/dL Calcium 9.3 (8.4-10.2) mg/dL Total Bilirubin 0.60 (0.2-1.3) mg/dL AST 42 H (14-36) U/L ALT 34 (0-35) U/L Alkaline Phosphatase 88 (38-126) U/L Troponin I < 0.012 (0.000-0.034) ng/mL NT-Pro-B Natriuret Pep 68.5 (0-900) pg/mL Serum Total Protein 7.9 (6.3-8.2) g/dL Albumin 4.4 (3.5-5.0) g/dL 09/01/20 Range/Units 11:35 WBC 4.9 (4.0-10.5) K/mm3 RBC 4.43 (4.1-5.4) M/mm3 Hgb 13.3 (12.0-16.0) gm/dl Hct 41.6 (35-47) % MCV 93.9 (78-100) fl MCH 30.0 (26-32) pg MCHC 32.0 (32-36) g/dl RDW 12.4 (11.5-14.0) % Plt Count 225 (150-450) K/mm3 MPV 11.4 H (7.5-11.0) fl Gran % 41.8 (36.0-66.0) % Eos # (Auto) 0.20 (0-0.5) Absolute Lymphs (auto) 1.84 (1.0-4.6) Absolute Monos (auto) 0.77 (0.0-1.3) Lymphocytes % 37.6 (24.0-44.0) % Monocytes % 15.7 H (0.0-12.0) % Eosinophils % 4.1 (0.00-5.0) % Basophils % 0.8 (0.0-0.4) % Absolute Granulocytes 2.05 (1.4-6.9) Basophils # 0.04 (0-0.4) PT (9.95-12.35) SECONDS INR (0.8-3.0) APTT (25.3-37.0) SECONDS Sodium (137-145) mmol/L Potassium (3.5-5.1) mmol/L Chloride (98-107) mmol/L Carbon Dioxide (22-30) mmol/L Anion Gap (5-15) MEQ/L BUN (7-17) mg/dL Creatinine (0.52-1.04) mg/dL Estimated GFR ML/MIN Glucose (74-106) mg/dL Calcium (8.4-10.2) mg/dL Total Bilirubin (0.2-1.3) mg/dL AST (14-36) U/L ALT (0-35) U/L Alkaline Phosphatase (38-126) U/L Troponin I (0.000-0.034) ng/mL NT-Pro-B Natriuret Pep (0-900) pg/mL Serum Total Protein (6.3-8.2) g/dL Albumin (3.5-5.0) g/dL - Progress Progress: unchanged Air Movement: fair Progress Note: 09/01/20 13:52 Pt stable during stay w good sats and clear lung exam. She had a Covid19 test on 08/29/20 which is still pending. Will assume that pt is Covid+ due to symptoms/exposure w grandchildren. Pt advised to quarantine at home for 10 days. Counseled pt/family regarding: lab results, diagnosis, need for follow-up, rad results - Departure Departure Disposition: Home Clinical Impression: Viral respiratory illness Condition: Stable Critical Care Time: No Referrals: Provider,Unknown [Primary Care Provider] - Instructions: Viral Upper Respiratory Infection, Adult (DC), Fever, Adult (DC) Additional Instructions: Return to ER for worsening cough/Increasing shortness of breath Get a pulse ox monitor and return to ER if oxygen sats less than 91% consistently Prescriptions: Ondansetron ODT 4 MG [Zofran Odt 4 mg] 4 mg PO Q6H PRN PRN #10 tab.rapdis PRN Reason: Nausea/Vomiting Hydrocodone/Chlorphen Polis [Tussionex Pennkinetic Susp] 5 ml PO BID PRN PRN #60 ml PRN Reason: Cough
[2020-09-01 12:48] VITALS: BP 108/60; PULSE 62
[2020-09-01 13:56] VITALS: O2SAT 97
== END 2020-09-01 12:56 | disposition home or self-care (01) ==
LOC: ED 09:54
DX: J06.9 Acute upper respiratory infection, unspecified (principal)
CPT/HCPCS: 36000; 36415; 71250; 80053; 83880; 84484; 85025; 85610; 85730; 99284

== ENCOUNTER 2020-09-07 10:02 | Observation (INO) | payer SELFPAY ==
[2020-09-07] MEDS ORDERED: VENTOLIN COMMON CANISTER IH ONE (10:13)
[2020-09-07] MEDS ORDERED: Sodium Chloride 0.9% 1000 ML 1,000 ML IV SCH (10:15)
[2020-09-07] MEDS ORDERED: Sodium Chloride 0.9% 1000 ML 1,000 ML ONE (10:23)
[2020-09-07 10:38] LABS: A-aADO2 24; ABG HEMOGLOBIN 12.9; ABG POTASSIUM 3.9 (3.5-5.1); ABG SITE RIGHT BRACHIAL; ARTERIAL BLD GAS O2 SATURATION 97.9 % (95-100); ARTERIAL BLOOD GAS BASE EXCESS 1.4 (-2.0-2.0); ARTERIAL BLOOD GAS FIO2 21 %; ARTERIAL BLOOD GAS PCO2 35 mmHg (35-45); ARTERIAL BLOOD GAS PO2 82 mmHg (75-100); ARTERIAL BLOOD GAS pH 7.46 (7.35-7.45); HCO3- 24.9 (22-28); HGB O2 SAT 95.7 g/dF (94-100); Methhemoglobin 1.3 % (1.4-1.5); paO2 pAO1 0.77
[2020-09-07 10:46] LABS: Absolute Neutrophil Ct (ANC) 3.86 (1.4-6.9); BASOPHIL % 0.1 % (0.0-0.4); Basophil (Absolute #) 0.01 (0-0.4); Eosinophil % 3.4 % (0.00-5.0); Eosinophil (Absolute #) 0.23 (0-0.5); Hematocrit 40.1 % (35-47); Hemoglobin 12.9 gm/dl (12.0-16.0); Lymphocyte (Absolute #) 2.05 (1.0-4.6); Lymphocytes % 30.5 % (24.0-44.0); Mean Cell Volume 93.3 fl (78-100); Mean Corpuscular Hgb Concent. 32.2 g/dl (32-36); Mean Platelet Volume 11.8 fl (7.5-11.0); Monocyte (Absolute #) 0.58 (0.0-1.3); Monocytes % 8.6 % (0.0-12.0); Neutrophil % 57.4 % (36.0-66.0); Platelet Count 210 K/mm3 (150-450); Red Cell Distribution Width 12.4 % (11.5-14.0); White Blood Count 6.7 K/mm3 (4.0-10.5)
--- NOTE | 2020-09-07 10:56 | ERPHSYRPT ---
- History of Present Illness Time Seen by Provider: 09/07/20 10:52 Source: patient Exam Limitations: no limitations Patient Subjective Stated Complaint: Cough Triage Nursing Assessment: Patient ambulated back to ED and transferred self to bed. Patient A+O X 3. Patient's skin pink, warm and dry. Patient complains of cough, fever, SOB when ambulating, N/V, diarrhea and body aches. Patient complains of body aches to entire body 05/30. Patient COVID positive. Patient's lungs noted to be wheezy throughout. Physician History: Patient is 55-year-old female was diagnosed with Covid virus 1 week ago started having a shortness of breath fever low-grade with myalgia and headache so she came to the emergency room. Timing/Duration: yesterday Severity: moderate Associated Symptoms: shortness of breath, cough, chills, headaches, loss of appetite, weakness Allergies/Adverse Reactions: morphine Allergy (Verified 09/07/20 10:43) levofloxacin [From Levaquin] Adverse Reaction (Intermediate, Verified 09/07/20 10:43) PT STATES ONE TIME SHE HAD THIS MEDICINE AND HER VEINS ALL TURNED BRIGHT RED Home Medications: Albuterol Sulfate [Ventolin Hfa] 8 gm IH Q6-8HPRN PRN 02/21/18 [History] Meclizine HCl 25 mg [Antivert 25 mg] 25 mg PO BID PRN PRN 02/21/18 [History] Ropinirole HCl [Requip] 1 mg PO HS 02/21/18 [History] carvediloL [Carvedilol] 6.25 mg PO BID 02/22/18 [History] Fluoxetine HCl 20 mg [Prozac 20 MG] 20 mg PO DAILY 07/15/20 [History] Gabapentin 300 mg PO HS PRN PRN 07/15/20 [History] Glipizide [Glipizide ER] 2.5 mg PO DAILY 07/15/20 [History] Metformin HCl 500 mg [Glucophage 500 MG] 1,000 mg PO DAILY 07/15/20 [History] Prazosin HCl 1 mg PO HS 07/15/20 [History] Omeprazole Magnesium [Prilosec Otc] 20 mg PO DAILY 07/16/20 [History] Hx Tetanus, Diphtheria Vaccination/Date Given: Yes Hx Influenza Vaccination/Date Given: No Hx Pneumococcal Vaccination/Date Given: Yes Immunizations Up to Date: Yes Travel Risk - International Travel Have you traveled outside of the country in past 3 weeks: No - Coronavirus Screening Are you exhibiting any of the following symptoms?: Yes Symptoms: Fever, Cough: New Onset, Shortness of Breath, Headaches/Body Aches/Fatigue Close contact with a COVID-19 positive Pt in past 14-21 Days: Yes - Review of Systems Constitutional: Fever, Chills, Fatigue, Lethargy, Malaise, Weakness Eyes: No Symptoms Ears, Nose, & Throat: No Symptoms Respiratory: Cough, No Dyspnea Cardiac: No Chest Pain, No Edema, No Syncope Abdominal/Gastrointestinal: No Abdominal Pain, No Nausea, No Vomiting, No Diarrhea Genitourinary Symptoms: No Dysuria Musculoskeletal: Myalgias, No Back Pain, No Neck Pain Skin: No Rash Neurological: No Dizziness, No Focal Weakness, No Sensory Changes Psychological: No Symptoms Endocrine: No Symptoms All Other Systems: Reviewed and Negative - Past Medical History Pertinent Past Medical History: Yes Neurological History: Seizures ENT History: Cataracts Cardiac History: High Cholesterol, Hypertension, Other Respiratory History: Asthma, Bronchitis, COPD Endocrine Medical History: Diabetes Type II, Other Musculoskeletal History: Arthritis, Osteoarthritis GI Medical History: GERD History: No Pertinent History Psycho-Social History: Anxiety, Depression Female Reproductive Disorders: No Pertinent History Other Medical History: 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 LEAKING HEART VALVE. POSITIVE COVID AUG 2020 - Past Surgical History Past Surgical History: Yes Neuro Surgical History: No Pertinent History Cardiac: Angioplasty, Cardiac Catheterization Respiratory: No Pertinent History Gastrointestinal: Cholecystectomy Genitourinary: No Pertinent History Musculoskeletal: No Pertinent History, Orthopedic Surgery Female Surgical History: Tubal Ligation Other Surgical History: HEART CATH, left rotator cuff in oct 2015. "leaky heart valve"; right thumb surgery - Social History Smoking Status: Never smoker How long have you smoked: 6 YEARS Exposure to second hand smoke: Yes Alcohol Use: None Drug Use: none Patient Lives Alone: No Significant Family History: no pertinent family hx - Female History Hx Now: No - Nursing Vital Signs Nursing Vital Signs: Initial Vital Signs Temperature 98.3 F 09/07/20 10:02 Pulse Rate 83 09/07/20 10:02 Respiratory Rate 20 09/07/20 10:02 Blood Pressure 144/85 09/07/20 10:02 O2 Sat by Pulse Oximetry 95 09/07/20 10:02 Pain Scale Pain Intensity 7 - Physical Exam General Appearance: no apparent distress, alert Eye Exam: PERRL/EOMI, eyes nml inspection Ears, Nose, Throat Exam: normal ENT inspection, TMs normal, pharynx normal, moist mucous membranes Neck Exam: normal inspection, non-tender, supple, full range of motion Respiratory Exam: diminished breath sounds, wheezing, No respiratory distress Cardiovascular Exam: regular rate/rhythm, normal heart sounds, normal peripheral pulses Gastrointestinal/Abdomen Exam: soft, normal bowel sounds, No tenderness, No mass Back Exam: normal inspection, normal range of motion, No CVA tenderness, No vertebral tenderness Extremity Exam: normal inspection, normal range of motion, pelvis stable Neurologic Exam: alert, oriented x 3, cooperative, normal mood/affect, nml cerebellar function, nml station & gait, sensation nml, No motor deficits Skin Exam: normal color, warm, dry, No rash Lymphatic Exam: No adenopathy SpO2: 97 - Course Nursing assessment & vital signs reviewed: Yes EKG Interpreted by Me: Sinus Rhythm - Radiology Exams Chest X-ray Interpretation: Reviewed by me, No Pneumonia Ordered Tests: Active Orders 24 hr Category Date Time Status Dishcloth Folder STAT Care 09/07/20 10:15 Completed EKG-ER Only STAT Care 09/07/20 10:13 Completed Isolation, Initiate & Maintain STAT Care 09/07/20 10:14 Completed CHEST 1 VIEW (PORTABLE) Stat Exams 09/07/20 10:49 Taken ARTERIAL BLOOD GASES Stat Lab 09/07/20 10:13 Completed CBC W DIFF Stat Lab 09/07/20 10:58 Completed CMP Stat Lab 09/07/20 10:58 Completed D-DIMER QUANTITATIVE Stat Lab 09/07/20 10:58 Completed Ferritin Stat Lab 09/07/20 10:58 Received LDH-LACTATE DEHYDROGENASE Stat Lab 09/07/20 10:58 Completed PROTIME WITH INR Stat Lab 09/07/20 10:58 Completed Respiratory MDI STAT RT 09/07/20 10:17 Completed Respiratory Therapy Assessment DAILY RT 09/07/20 10:40 Completed Medication Summary Generic Name Dose Route Start Last Admin Trade Name Freq PRN Reason Stop Dose Admin Sodium Chloride 1,000 mls @ 50 mls/hr 09/07/20 10:15 09/07/20 10:23 Sodium Chloride 0.9% 1000 Ml IV 10/07/20 10:14 50 mls/hr .Q20H ARSH Administration Discontinued Medications Generic Name Dose Route Start Last Admin Trade Name Curry PRN Reason Stop Dose Admin Albuterol Sulfate 4 puff 09/07/20 10:13 09/07/20 10:38 Ventolin Common Canister IH 09/07/20 10:14 4 puff STAT ONE Administration Lab/Rad Data: Laboratory Result Diagrams 09/07/20 10:58 09/07/20 10:58 Laboratory Results 09/07/20 09/07/20 09/07/20 Range/Units 10:58 10:58 10:58 WBC 6.7 (4.0-10.5) K/mm3 RBC 4.30 (4.1-5.4) M/mm3 Hgb 12.9 (12.0-16.0) gm/dl Hct 40.1 (35-47) % MCV 93.3 (78-100) fl MCH 30.0 (26-32) pg MCHC 32.2 (32-36) g/dl RDW 12.4 (11.5-14.0) % Plt Count 210 (150-450) K/mm3 MPV 11.8 H (7.5-11.0) fl Gran % 57.4 (36.0-66.0) % Eos # (Auto) 0.23 (0-0.5) Absolute Lymphs (auto) 2.05 (1.0-4.6) Absolute Monos (auto) 0.58 (0.0-1.3) Lymphocytes % 30.5 (24.0-44.0) % Monocytes % 8.6 (0.0-12.0) % Eosinophils % 3.4 (0.00-5.0) % Basophils % 0.1 (0.0-0.4) % Absolute Granulocytes 3.86 (1.4-6.9) Basophils # 0.01 (0-0.4) PT 12.9 H (9.95-12.35) SECONDS INR 1.14 (0.8-3.0) D-Dimer 813 H* (215-500) ng/mL Puncture Site pCO2 (35-45) mmHg pO2 (75-100) mmHg Base Excess (-2.0-2.0) O2 Saturation (94-100) g/dF ABG pH (7.35-7.45) ABG HCO3 (22-28) ABG O2 Sat (Measured) (95-100) % Warren Test A-a Gradient a/A Ratio Hemoglobin Carboxyhemoglobin (0.0-6.9) % THgb Methemoglobin (1.4-1.5) % Potassium 4.1 (3.5-5.1) Temperature C POC O2 Flow Rate % Sodium 134 L (137-145) mmol/L Chloride 106 (98-107) mmol/L Carbon Dioxide 22 (22-30) mmol/L Anion Gap 9.6 (5-15) MEQ/L BUN 8 (7-17) mg/dL Creatinine 0.64 (0.52-1.04) mg/dL Estimated GFR > 60.0 ML/MIN Glucose 128 H (74-106) mg/dL Calcium 8.7 (8.4-10.2) mg/dL Total Bilirubin 0.50 (0.2-1.3) mg/dL AST 35 (14-36) U/L ALT 28 (0-35) U/L Alkaline Phosphatase 86 (38-126) U/L Lactate Dehydrogenase 224 (120-246) U/L Serum Total Protein 7.3 (6.3-8.2) g/dL Albumin 3.9 (3.5-5.0) g/dL 09/07/20 Range/Units 10:13 WBC (4.0-10.5) K/mm3 RBC (4.1-5.4) M/mm3 Hgb (12.0-16.0) gm/dl Hct (35-47) % MCV (78-100) fl MCH (26-32) pg MCHC (32-36) g/dl RDW (11.5-14.0) % Plt Count (150-450) K/mm3 MPV (7.5-11.0) fl Gran % (36.0-66.0) % Eos # (Auto) (0-0.5) Absolute Lymphs (auto) (1.0-4.6) Absolute Monos (auto) (0.0-1.3) Lymphocytes % (24.0-44.0) % Monocytes % (0.0-12.0) % Eosinophils % (0.00-5.0) % Basophils % (0.0-0.4) % Absolute Granulocytes (1.4-6.9) Basophils # (0-0.4) PT (9.95-12.35) SECONDS INR (0.8-3.0) D-Dimer (215-500) ng/mL Puncture Site RIGHT BRACHIAL pCO2 35 (35-45) mmHg pO2 82 (75-100) mmHg Base Excess 1.4 (-2.0-2.0) O2 Saturation 95.7 (94-100) g/dF ABG pH 7.46 H (7.35-7.45) ABG HCO3 24.9 (22-28) ABG O2 Sat (Measured) 97.9 (95-100) % Warren Test NOT APPLICABLE A-a Gradient 24 a/A Ratio 0.77 Hemoglobin 12.9 Carboxyhemoglobin 1.0 (0.0-6.9) % THgb Methemoglobin 1.3 L (1.4-1.5) % Potassium 3.9 (3.5-5.1) Temperature 37.0 C POC O2 Flow Rate 21 % Sodium (137-145) mmol/L Chloride (98-107) mmol/L Carbon Dioxide (22-30) mmol/L Anion Gap (5-15) MEQ/L BUN (7-17) mg/dL Creatinine (0.52-1.04) mg/dL Estimated GFR ML/MIN Glucose (74-106) mg/dL Calcium (8.4-10.2) mg/dL Total Bilirubin (0.2-1.3) mg/dL AST (14-36) U/L ALT (0-35) U/L Alkaline Phosphatase (38-126) U/L Lactate Dehydrogenase (120-246) U/L Serum Total Protein (6.3-8.2) g/dL Albumin (3.5-5.0) g/dL - Progress Progress: unchanged Discussed with : Dao, Other (Dr Henriquez) Will see patient in: hospital (observation) Counseled pt/family regarding: lab results, diagnosis, need for follow-up, rad results - Departure Departure Disposition: Observation Clinical Impression: COVID-19 virus infection, Pneumonia due to COVID-19 virus Condition: Fair Critical Care Time: Yes Critical Care Time(excluding separately billable procedures): Critical 30-74 mins Referrals: Provider,Unknown [NON-STAFF PHY W/O PRIVILEGES] -
[2020-09-07 11:07] LABS: INR 1.14 (0.8-3.0); PROTIME 12.9 SECONDS (9.95-12.35)
[2020-09-07 11:12] LABS: ALBUMIN 3.9 g/dL (3.5-5.0); ALKALINE PHOSPHATASE 86 U/L (38-126); ANION GAP 9.6 MEQ/L (5-15); BLOOD UREA NITROGEN 8 mg/dL (7-17); CHLORIDE 106 mmol/L (98-107); Calcium 8.7 mg/dL (8.4-10.2); Carbon Dioxide 22 mmol/L (22-30); Creatinine 1 0.64 mg/dL (0.52-1.04); EST GLOMERULAR FILTRATION RATE > 60.0 ML/MIN; Glucose 128 mg/dL (74-106); LDH-LACTATE DEHYDROGENASE 224 U/L (120-246); Potassium 4.1 mmol/L (3.5-5.1); SGOT/AST 35 U/L (14-36); SGPT/ALT 28 U/L (0-35); SODIUM 134 mmol/L (137-145); Total Protein 7.3 g/dL (6.3-8.2)
[2020-09-07] MEDS ORDERED: Decadron 4 MG INJ IV SCH (12:56)
[2020-09-07] MEDS ORDERED: HUMALOG SQ PRN (12:56)
[2020-09-07] MEDS ORDERED: ZOFRAN ODT 4 MG PO PRN (13:13)
[2020-09-07] MEDS ORDERED: ROCEPHIN 1 Gm-D5w 50 ml Bag** 1 G/50 ML IVPB IV SCH (13:15)
[2020-09-07] MEDS: ENOXAPARIN SODIUM SQ SCH (13:18)
[2020-09-07] MEDS: ECOTRIN 81 MG PO SCH (13:44)
[2020-09-07] MEDS: Coreg 6.25 MG PO SCH ×2 (13:44→21:15)
[2020-09-07] MEDS: Glucophage 500 MG PO SCH (13:44)
[2020-09-07] MEDS: Protonix 40MG Tablet PO SCH ×2 (13:44→21:15)
[2020-09-07] MEDS: Prozac 20 MG PO SCH (13:44)
[2020-09-07] MEDS: NEURONTIN 300 MG PO SCH ×2 (13:44→21:15)
[2020-09-07] MEDS: Glucotrol Xl 2.5 MG PO SCH (13:44)
[2020-09-07] MEDS: ANTIVERT 25 MG PO SCH ×2 (13:47→21:15)
[2020-09-07] MEDS ORDERED: Zithromax 500 MG/ 250 ML NaCl Premix 500 MG/250 ML IVPB IV SCH (14:00)
[2020-09-07] MEDS ORDERED: REMDESIVIR 200 MG in Sodium Chloride 0.9% 250 ML 250 ML IV ONE (15:30)
[2020-09-07] MEDS: TYLENOL 325 MG PO PRN ×2 (15:34→21:15)
[2020-09-07] MEDS: Tussionex Pennkinetic Susp PO PRN (15:34)
--- NOTE | 2020-09-07 20:30 | XRAY ---
Indication: Short of breath. Positive Covid 19. Comparison: July 20, 2020. Portable chest now demonstrates minimal right base infiltrate versus atelectasis. Remaining heart and lungs unremarkable.
[2020-09-07] MEDS: Decadron 4 MG INJ IV SCH (21:16)
[2020-09-07] MEDS ORDERED: REQUIP 2MG TAB PO SCH (22:00)
[2020-09-07] MEDS ORDERED: NON-FORMULARY ITEM (Prazosin Hcl [Prazosin Hcl] 0 MG) PO SCH (22:00)
[2020-09-07] MEDS ORDERED: ROPINIROLE HCL 2 MG PO SCH (22:00)
[2020-09-07] MEDS ORDERED: NON-FORMULARY ITEM (Omeprazole Magnesium [Prilosec Otc] 20 MG) PO SCH (22:00)
[2020-09-07] MEDS: VENTOLIN COMMON CANISTER IH PRN (22:35)
[2020-09-08] MEDS ORDERED: Ativan 0.5 MG PO PRN (01:14)
[2020-09-08] MEDS ORDERED: Ativan 1 MG ONE (01:16)
[2020-09-08 06:52] LABS: Hematocrit 38.4 % (35-47); Hemoglobin 12.4 gm/dl (12.0-16.0); Mean Cell Volume 92.8 fl (78-100); Mean Corpuscular Hgb Concent. 32.3 g/dl (32-36); Mean Platelet Volume 11.8 fl (7.5-11.0); Platelet Count 215 K/mm3 (150-450); Red Blood Count 4.14 M/mm3 (4.1-5.4); White Blood Count 3.6 K/mm3 (4.0-10.5)
[2020-09-08] MEDS: VENTOLIN COMMON CANISTER IH PRN (07:20)
[2020-09-08 07:34] VITALS: O2SAT 96
[2020-09-08] MEDS ORDERED: Ativan 1 MG PO PRN (07:34)
[2020-09-08 07:38] VITALS: BP 133/75; PULSE 82
[2020-09-08] MEDS: ENOXAPARIN SODIUM SQ SCH (09:08)
[2020-09-08] MEDS: Tussionex Pennkinetic Susp PO PRN (09:09)
[2020-09-08] MEDS: Prozac 20 MG PO SCH (09:09)
[2020-09-08] MEDS: TYLENOL 325 MG PO PRN (09:09)
[2020-09-08] MEDS: ECOTRIN 81 MG PO SCH (09:09)
[2020-09-08] MEDS: Decadron 4 MG INJ IV SCH (09:09)
[2020-09-08] MEDS: Protonix 40MG Tablet PO SCH (09:09)
[2020-09-08] MEDS: ANTIVERT 25 MG PO SCH (09:09)
[2020-09-08] MEDS: Glucophage 500 MG PO SCH (09:09)
[2020-09-08] MEDS: NEURONTIN 300 MG PO SCH (09:09)
[2020-09-08] MEDS: Glucotrol Xl 2.5 MG PO SCH (09:10)
[2020-09-08] MEDS: Coreg 6.25 MG PO SCH (09:14)
[2020-09-08] MEDS ORDERED: PROTONIX 40 MG IV IV SCH (10:00)
--- NOTE | 2020-09-08 11:14 | SSS ---
ADMISSION DIAGNOSIS: COVID. DISCHARGE DIAGNOSES: 1) COVID. 2) DIABETES MELLITUS. 3) VALVULAR HEART DISEASE. 4) CORONARY ARTERY DISEASE. HISTORY OF PRESENT ILLNESS: The patient's granddaughter who lives with her got COVID. The patient started coughing and became feverish, achy all over, had nausea, vomiting, diarrhea and body aches. She went to the emergency room on 09/07/2020 and tested positive and seemed to be wheezing. D-dimer was elevated to about 800. Her white count was 3.6. Chest x-ray was minimal right base infiltrate suggestive of atelectasis. HOME MEDICATIONS: Ventolin 2 puffs every four hours PRN, Antivert 25 mg every 12 hours PRN dizziness, Requip 2 mg h.s., carvedilol 6.25 mg b.i.d., Prozac 20 q.d., gabapentin 300 mg PRN leg pain, Glipizide 2.5 mg q.d., Metformin 500 mg two a day, Prazosin 1 mg h.s. and Prilosec 20 q.d. ALLERGIES: MORPHINE. LEVOFLOXACIN. REVIEW OF SYSTEMS: Chest pain, fever, achiness, malaise. CHEST: A little bit short of breath, coughing, fever. No chest pain. CVS: Valvular heart disease. She does not know which one. She did not have an echo. ABDOMEN: Nausea, epigastric pain. No vomiting. No diarrhea. EXTREMITIES: Some arthritis in the knees with stiffness and soreness over the knee joints. PHYSICAL EXAMINATION: The patient is alert, orientated, pleasant and in no distress. VITAL SIGNS: Temperature 98F, pulse 70, respirations 20, blood pressure 133/74. O2 saturation on room air is 94%. HEENT: Pupils equal and reactive to light. NECK: Supple without adenopathy. CHEST: Clear. CVS: No murmurs or gallops. ABDOMEN: Obese, tender epigastric area. EXTREMITIES: No edema. HOSPITAL COURSE: The patient has COVID. She had some cough and she became alarmed and was admitted. On the day of discharge she is eating well, feeling well. No abdominal pain. No chest pain. No shortness of breath. Patient having cough. She was discharged on the medicines she came in on plus Xarelto 10 mg q.d. for a month and prednisone 40 x5 days, 20 x5 days. She is to call for increasing shortness of breath, increased temperature or abdominal pain.
[2020-09-08] MEDS ORDERED: REMDESIVIR 100 MG in Sodium Chloride 0.9% 100 ML IVPB 100 ML IV SCH (15:00)
== END 2020-09-08 09:57 | disposition home or self-care (01) ==
LOC: ED 10:02 → MED SURG 12:52
PROVIDERS: ADMIT Family Medicine; ATTEND Family Medicine
DX: U07.1 COVID-19 (principal); E11.9 Type 2 diabetes mellitus without complications; M17.0 Bilateral primary osteoarthritis of knee; I38 Endocarditis, valve unspecified; I25.10 Atherosclerotic heart disease of native coronary artery without angina pectoris; Z79.899 Other long term (current) drug therapy
CPT/HCPCS: 36415; 36600; 71045; 80053; 82375; 82728; 82803; 82962; 83036; 83615; 85025; 85027; 85379; 85610; 93005; 93041; 94640; 94762; 96360; 99285; 99291; J0456; J0696; J1100; J1650; Q0162; A9270-GY; G0378

== ENCOUNTER 2020-09-10 10:05 | Emergency (ER) | payer SELFPAY ==
--- NOTE | 2020-09-10 10:27 | ERPHSYRPT ---
- History of Present Illness Time Seen by Provider: 09/10/20 10:15 Source: patient Exam Limitations: no limitations Physician History: This is a 55-year-old overweight white female who has history of diabetes, hypertension, COPD and bronchitis as well as gastroesophageal reflux disease. She was recently diagnosed with COVID-19 pneumonia. Patient has had a cough that has been nonproductive, sore throat, fever, myalgias and arthralgias as well as nausea and diarrhea symptoms. Patient symptoms have been going on for approximately 12 days. Patient was seen in the emergency department on 09/01/2020 and was sent home to quarantine herself until her COVID-19 test re turned. The test returned positive. Patient was admitted into the hospital under Dr. Elizondo on 09/07/2020. Patient was discharged to home after 24 hours of observation. The hospital called the patient today and asked how she was doing. The patient states that she still has body aches headache cough and when she is up ambulating she feels short of breath as though she is going to pass out. Patient arrives to the emergency department per Dr. Elizondo request. Patient is afebrile and oxygenating on room air at 98%. Patient denies chest pain. She no longer has nausea or diarrhea. Timing/Duration: day(s) (Symptoms have been present for approximately 12 days) Activities at Onset: activity Severity of Dyspnea-Max: moderate (With ambulation and activity) Severity of Dyspnea-Current: mild (Lying still) Possible Cause: frequent episodes (Recently) Modifying Factors: Improves With: coughing Associated Symptoms: cough Allergies/Adverse Reactions: morphine Allergy (Verified 09/10/20 10:22) levofloxacin [From Levaquin] Adverse Reaction (Intermediate, Verified 09/10/20 10:22) PT STATES ONE TIME SHE HAD THIS MEDICINE AND HER VEINS ALL TURNED BRIGHT RED Home Medications: Albuterol Sulfate [Ventolin Hfa] 8 gm IH Q6-8HPRN PRN 02/21/18 [History] Meclizine HCl 25 mg [Antivert 25 mg] 25 mg PO BID 02/21/18 [History] Ropinirole HCl [Requip] 2 mg PO HS 02/21/18 [History] carvediloL [Carvedilol] 6.25 mg PO BID 02/22/18 [History] Fluoxetine HCl 20 mg [Prozac 20 MG] 20 mg PO DAILY 07/15/20 [History] Gabapentin 300 mg PO TID 07/15/20 [History] Glipizide [Glipizide ER] 2.5 mg PO DAILY 07/15/20 [History] Metformin HCl 500 mg [Glucophage 500 MG] 1,000 mg PO DAILY 07/15/20 [History] Prazosin HCl 1 mg PO HS 07/15/20 [History] Omeprazole Magnesium [Prilosec Otc] 20 mg PO BID 07/16/20 [History] Azithromycin 1 tab PO UD 09/07/20 [History] Benzonatate 100 mg PO TID 09/07/20 [History] Hx Tetanus, Diphtheria Vaccination/Date Given: Yes Hx Influenza Vaccination/Date Given: No Hx Pneumococcal Vaccination/Date Given: Yes Travel Risk - International Travel Have you traveled outside of the country in past 3 weeks: No - Coronavirus Screening Are you exhibiting any of the following symptoms?: No Symptoms: Shortness of Breath, Headaches/Body Aches/Fatigue Close contact with a COVID-19 positive Pt in past 14-21 Days: Yes - Review of Systems Constitutional: Malaise, Weakness Eyes: No Symptoms Ears, Nose, & Throat: No Symptoms Respiratory: Cough, Dyspnea, Dyspnea on Exertion (JULIEN) Cardiac: No Symptoms Abdominal/Gastrointestinal: No Symptoms Genitourinary Symptoms: No Symptoms Musculoskeletal: Arthralgias, Myalgias Skin: No Symptoms Neurological: No Symptoms Psychological: No Symptoms Endocrine: No Symptoms Hematologic/Lymphatic: No Symptoms Immunological/Allergic: No Symptoms All Other Systems: Reviewed and Negative - Past Medical History Pertinent Past Medical History: Yes Neurological History: Seizures ENT History: Cataracts Cardiac History: High Cholesterol, Hypertension, Other Respiratory History: Asthma, Bronchitis, COPD Endocrine Medical History: Diabetes Type II, Other Musculoskeletal History: Arthritis, Osteoarthritis GI Medical History: GERD History: No Pertinent History Psycho-Social History: Anxiety, Depression Female Reproductive Disorders: No Pertinent History Other Medical History: 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 LEAKING HEART VALVE - Past Surgical History Past Surgical History: Yes Neuro Surgical History: No Pertinent History Cardiac: Angioplasty, Cardiac Catheterization Respiratory: No Pertinent History Gastrointestinal: Cholecystectomy Genitourinary: No Pertinent History Musculoskeletal: No Pertinent History, Orthopedic Surgery Female Surgical History: Tubal Ligation Other Surgical History: HEART CATH, left rotator cuff in oct 2015. "leaky heart valve"; right thumb surgery - Social History Smoking Status: Never smoker How long have you smoked: 6 YEARS Exposure to second hand smoke: Yes Alcohol Use: None Drug Use: none Patient Lives Alone: No Significant Family History: no pertinent family hx - Nursing Vital Signs Nursing Vital Signs: Initial Vital Signs Temperature 98.7 F 09/10/20 10:09 Pulse Rate 68 09/10/20 10:09 Respiratory Rate 18 09/10/20 10:09 Blood Pressure 132/78 09/10/20 10:09 O2 Sat by Pulse Oximetry 97 09/10/20 10:09 Pain Scale Pain Intensity 0 - Physical Exam General Appearance: mild distress, alert, anxiety, obese Eye Exam: PERRL/EOMI, eyes nml inspection Ears, Nose, Throat Exam: hearing grossly normal, normal pharynx Neck Exam: normal inspection, non-tender, supple, full range of motion Respiratory Exam: normal breath sounds, lungs clear, airway intact, No chest tenderness, No respiratory distress Cardiovascular/Chest Exam: normal heart sounds, regular rate/rhythm Abdominal/Gastrointestinal Exam: soft, normal bowel sounds, No tenderness Rectal Exam: not done Extremity Exam: non-tender, normal range of motion, normal inspection Neurologic Exam: alert, oriented x 3, cooperative, recovery advocate II-XII nml as tested, normal mood/affect, nml cerebellar function, nml station & gait, sensation nml Skin Exam: normal color, warm, dry Lymphatic Exam: No adenopathy SpO2 Interpretation: normal O2 Delivery: Room Air - Course Nursing assessment & vital signs reviewed: Yes Ordered Tests: Active Orders 24 hr Category Date Time Status Construction Management Assistant STAT Care 09/10/20 10:28 Active EKG-ER Only STAT Care 09/10/20 10:28 Active IV Insertion STAT Care 09/10/20 10:28 Active Isolation, Initiate & Maintain STAT Care 09/10/20 10:28 Active Pulse Oximetry (ED) ROUTINE Care 09/10/20 10:28 Active CHEST 1 VIEW (PORTABLE) Stat Exams 09/10/20 10:54 Completed BLOOD CULTURE Stat Lab 09/10/20 11:30 Received CBC Stat Lab 09/10/20 11:30 Completed CMP Stat Lab 09/10/20 11:30 Completed CULTURE,URINE Stat Lab 09/10/20 11:30 Received D-DIMER QUANTITATIVE Stat Lab 09/10/20 11:30 Completed Ferritin Stat Lab 09/10/20 11:30 Completed LDH-LACTATE DEHYDROGENASE Stat Lab 09/10/20 11:30 Completed Lactic Acid Stat Lab 09/10/20 11:00 Completed Chambers Screen Stat Lab 09/10/20 11:30 Completed PROTIME WITH INR Stat Lab 09/10/20 11:30 Completed TROPONIN Q3H Lab 09/10/20 11:30 Completed TROPONIN Q3H Lab 09/10/20 13:30 Ordered TROPONIN Q3H Lab 09/10/20 16:30 Ordered TROPONIN Q3H Lab 09/10/20 19:30 Ordered TROPONIN Q3H Lab 09/10/20 22:30 Ordered UA W/RFX UR CULTURE Stat Lab 09/10/20 11:30 Completed Medication Summary Generic Name Dose Route Start Last Admin Trade Name Freq PRN Reason Stop Dose Admin Sodium Chloride 1,000 mls @ 50 mls/hr 09/10/20 10:30 09/10/20 10:34 Sodium Chloride 0.9% 1000 Ml IV 10/10/20 10:29 50 mls/hr .Q20H ARSH Administration Ceftriaxone Sodium/Dextrose 1 g in 50 mls @ 100 mls/hr 09/10/20 12:34 09/10/20 12:43 Rocephin 1 Gm-D5w 50 Ml Bag IV 09/10/20 13:03 100 mls/hr STAT STA 100 mls/hr Administration Discontinued Medications Generic Name Dose Route Start Last Admin Trade Name Freq PRN Reason Stop Dose Admin Ceftriaxone Sodium/Dextrose Confirm 09/10/20 12:39 Rocephin 1 Gm-D5w 50 Ml Bag Administered 09/10/20 12:40 Dose 1 g in 50 mls @ ud IV .STK-MED ONE Lab/Rad Data: Laboratory Result Diagrams 09/10/20 11:30 09/10/20 11:30 Laboratory Results 09/10/20 09/10/20 09/10/20 Range/Units 11:30 11:30 11:30 WBC (4.0-10.5) K/mm3 RBC (4.1-5.4) M/mm3 Hgb (12.0-16.0) gm/dl Hct (35-47) % MCV (78-100) fl MCH (26-32) pg MCHC (32-36) g/dl RDW (11.5-14.0) % Plt Count (150-450) K/mm3 MPV (7.5-11.0) fl PT (9.95-12.35) SECONDS INR (0.8-3.0) D-Dimer (215-500) ng/mL Sodium (137-145) mmol/L Potassium (3.5-5.1) mmol/L Chloride (98-107) mmol/L Carbon Dioxide (22-30) mmol/L Anion Gap (5-15) MEQ/L BUN (7-17) mg/dL Creatinine (0.52-1.04) mg/dL Estimated GFR ML/MIN Glucose (74-106) mg/dL Lactic Acid (0.4-2.0) Calcium (8.4-10.2) mg/dL Ferritin (11.1-264) ng/mL Total Bilirubin (0.2-1.3) mg/dL AST (14-36) U/L ALT (0-35) U/L Alkaline Phosphatase (38-126) U/L Lactate Dehydrogenase (120-246) U/L Troponin I (0.000-0.034) ng/mL Serum Total Protein (6.3-8.2) g/dL Albumin (3.5-5.0) g/dL Urine Color YELLOW (YELLOW) Urine Appearance CLOUDY (CLEAR) Urine pH 6.0 (5-6) Ur Specific [place] 1.024 (1.005-1.025) Urine Protein 30 (Negative) Urine Ketones NEGATIVE (NEGATIVE) Urine Blood NEGATIVE (0-5) Stu/ul Urine Nitrite NEGATIVE (NEGATIVE) Urine Bilirubin NEGATIVE (NEGATIVE) Urine Urobilinogen NEGATIVE (0-1) mg/dL Ur Leukocyte Esterase MODERATE (NEGATIVE) Urine WBC (Auto) 6-10 (0-5) /HPF Urine RBC (Auto) 0-2 (0-2) /HPF U Hyaline Cast (Auto) 0-2 (0-2) /LPF U Epithel Cells (Auto) MODERATE (FEW) /HPF Urine Bacteria (Auto) FEW (NEGATIVE) /HPF Urine Mucus (Auto) SLIGHT (NEGATIVE) /HPF Urine Culture Reflexed YES (NO) Urine Glucose NEGATIVE (NEGATIVE) mg/dL Monoscreen NEGATIVE (Negative) Influenza Type A Ag NEGATIVE (NEGATIVE) Influenza Type B Ag NEGATIVE (NEGATIVE) RSV (PCR) NEGATIVE (Negative) 09/10/20 09/10/20 09/10/20 Range/Units 11:30 11:30 11:30 WBC (4.0-10.5) K/mm3 RBC (4.1-5.4) M/mm3 Hgb (12.0-16.0) gm/dl Hct (35-47) % MCV (78-100) fl MCH (26-32) pg MCHC (32-36) g/dl RDW (11.5-14.0) % Plt Count (150-450) K/mm3 MPV (7.5-11.0) fl PT 12.5 H (9.95-12.35) SECONDS INR 1.11 (0.8-3.0) D-Dimer 1097 H* (215-500) ng/mL Sodium (137-145) mmol/L Potassium (3.5-5.1) mmol/L Chloride (98-107) mmol/L Carbon Dioxide (22-30) mmol/L Anion Gap (5-15) MEQ/L BUN (7-17) mg/dL Creatinine (0.52-1.04) mg/dL Estimated GFR ML/MIN Glucose (74-106) mg/dL Lactic Acid (0.4-2.0) Calcium (8.4-10.2) mg/dL Ferritin 168 (11.1-264) ng/mL Total Bilirubin (0.2-1.3) mg/dL AST (14-36) U/L ALT (0-35) U/L Alkaline Phosphatase (38-126) U/L Lactate Dehydrogenase (120-246) U/L Troponin I < 0.012 (0.000-0.034) ng/mL Serum Total Protein (6.3-8.2) g/dL Albumin (3.5-5.0) g/dL Urine Color (YELLOW) Urine Appearance (CLEAR) Urine pH (5-6) Ur Specific [place] (1.005-1.025) Urine Protein (Negative) Urine Ketones (NEGATIVE) Urine Blood (0-5) Stu/ul Urine Nitrite (NEGATIVE) Urine Bilirubin (NEGATIVE) Urine Urobilinogen (0-1) mg/dL Ur Leukocyte Esterase (NEGATIVE) Urine WBC (Auto) (0-5) /HPF Urine RBC (Auto) (0-2) /HPF U Hyaline Cast (Auto) (0-2) /LPF U Epithel Cells (Auto) (FEW) /HPF Urine Bacteria (Auto) (NEGATIVE) /HPF Urine Mucus (Auto) (NEGATIVE) /HPF Urine Culture Reflexed (NO) Urine Glucose (NEGATIVE) mg/dL Monoscreen (Negative) Influenza Type A Ag (NEGATIVE) Influenza Type B Ag (NEGATIVE) RSV (PCR) (Negative) 09/10/20 09/10/20 09/10/20 Range/Units 11:30 11:30 11:00 WBC 10.5 (4.0-10.5) K/mm3 RBC 4.03 L (4.1-5.4) M/mm3 Hgb 12.2 (12.0-16.0) gm/dl Hct 37.5 (35-47) % MCV 93.1 (78-100) fl MCH 30.3 (26-32) pg MCHC 32.5 (32-36) g/dl RDW 12.0 (11.5-14.0) % Plt Count 73 L (150-450) K/mm3 MPV 12.4 H (7.5-11.0) fl PT (9.95-12.35) SECONDS INR (0.8-3.0) D-Dimer (215-500) ng/mL Sodium 134 L (137-145) mmol/L Potassium 4.3 (3.5-5.1) mmol/L Chloride 105 (98-107) mmol/L Carbon Dioxide 24 (22-30) mmol/L Anion Gap 10.0 (5-15) MEQ/L BUN 16 (7-17) mg/dL Creatinine 0.69 (0.52-1.04) mg/dL Estimated GFR > 60.0 ML/MIN Glucose 116 H (74-106) mg/dL Lactic Acid 1.8 (0.4-2.0) Calcium 8.9 (8.4-10.2) mg/dL Ferritin (11.1-264) ng/mL Total Bilirubin 0.50 (0.2-1.3) mg/dL AST 34 (14-36) U/L ALT 25 (0-35) U/L Alkaline Phosphatase 68 (38-126) U/L Lactate Dehydrogenase 329 H (120-246) U/L Troponin I (0.000-0.034) ng/mL Serum Total Protein 6.7 (6.3-8.2) g/dL Albumin 3.7 (3.5-5.0) g/dL Urine Color (YELLOW) Urine Appearance (CLEAR) Urine pH (5-6) Ur Specific [place] (1.005-1.025) Urine Protein (Negative) Urine Ketones (NEGATIVE) Urine Blood (0-5) Stu/ul Urine Nitrite (NEGATIVE) Urine Bilirubin (NEGATIVE) Urine Urobilinogen (0-1) mg/dL Ur Leukocyte Esterase (NEGATIVE) Urine WBC (Auto) (0-5) /HPF Urine RBC (Auto) (0-2) /HPF U Hyaline Cast (Auto) (0-2) /LPF U Epithel Cells (Auto) (FEW) /HPF Urine Bacteria (Auto) (NEGATIVE) /HPF Urine Mucus (Auto) (NEGATIVE) /HPF Urine Culture Reflexed (NO) Urine Glucose (NEGATIVE) mg/dL Monoscreen (Negative) Influenza Type A Ag (NEGATIVE) Influenza Type B Ag (NEGATIVE) RSV (PCR) (Negative) - Progress Progress: improved, re-examined Air Movement: good Progress Note: 09/10/20 12:49 Chest x-ray shows no acute cardiopulmonary process. Medical decision making: I spoke with Dr. Elizondo who is covering for the COVID- 19 unit. I reviewed the patient's history, condition, laboratory results, chest x-ray findings. This included the low platelet count of 73 and the elevated D- dimer. Patient had a CTA of the chest 1 week ago and it was negative for any pulmonary emboli. Dr. Elizondo does not have an explanation for the low platelet count. A recent platelet count of 215 on this patient was recorded. Dr. Henriquez states that the patient does not need to come into the hospital. We will treat her urinary tract infection that is present, repeat a CBC to follow the platelet count and provide her with a prescription of Ativan for her anxiety and insomnia. Patient is to follow-up with Dr. romero 09/10/20 12:53 I spoke with the patient regarding her chest x-ray findings and the medical decision making as stated above. Patient is agreeable to the above plan. Blood Culture(s) Obtained: Yes Antibiotics given: Yes Discussed with : Other (Leticia Henriquez) Counseled pt/family regarding: lab results, diagnosis, need for follow-up, rad results - Departure Departure Disposition: Home Clinical Impression: UTI (urinary tract infection), Thrombocytopenia, Insomnia Condition: Stable Critical Care Time: No Referrals: CAROL ANN ROMERO MD [Primary Care Provider] - Additional Instructions: Take your medication as prescribed. Call your primary care doctor later today to make arrangements for follow-up appointment. Return to the emergency department if symptoms worsen. Prescriptions: Lorazepam 1 mg [Ativan 1 MG] 1 mg PO Q8H PRN PRN #8 tablet PRN Reason: Anxiety Smz/Tmp Ds Tablet [Bactrim Ds Tablet] 1 udtab PO BID #14 tablet
[2020-09-10] MEDS ORDERED: Sodium Chloride 0.9% 1000 ML 1,000 ML IV SCH (10:30)
[2020-09-10] MEDS ORDERED: Sodium Chloride 0.9% 1000 ML 0 ML ONE (10:33)
--- NOTE | 2020-09-10 11:10 | XRAY ---
Indication: Cough. Positive Covid 19. Comparison: September 07. Portable chest demonstrates normal heart and lungs with mild bony degenerative changes. No new/acute findings.
[2020-09-10 11:34] LABS: INR 1.11 (0.8-3.0); PROTIME 12.5 SECONDS (9.95-12.35)
[2020-09-10 11:38] LABS: Hematocrit 37.5 % (35-47); Hemoglobin 12.2 gm/dl (12.0-16.0); Mean Cell Volume 93.1 fl (78-100); Mean Corpuscular Hemoglobin 30.3 pg (26-32); Mean Corpuscular Hgb Concent. 32.5 g/dl (32-36); Mean Platelet Volume 12.4 fl (7.5-11.0); Platelet Count 73 K/mm3 (150-450); Red Blood Count 4.03 M/mm3 (4.1-5.4); White Blood Count 10.5 K/mm3 (4.0-10.5)
[2020-09-10 11:44] LABS: ALBUMIN 3.7 g/dL (3.5-5.0); ALKALINE PHOSPHATASE 68 U/L (38-126); BLOOD UREA NITROGEN 16 mg/dL (7-17); CHLORIDE 105 mmol/L (98-107); Calcium 8.9 mg/dL (8.4-10.2); Carbon Dioxide 24 mmol/L (22-30); Creatinine 1 0.69 mg/dL (0.52-1.04); EST GLOMERULAR FILTRATION RATE > 60.0 ML/MIN; Glucose 116 mg/dL (74-106); LDH-LACTATE DEHYDROGENASE 329 U/L (120-246); Potassium 4.3 mmol/L (3.5-5.1); SGOT/AST 34 U/L (14-36); SGPT/ALT 25 U/L (0-35); SODIUM 134 mmol/L (137-145); Total Protein 6.7 g/dL (6.3-8.2)
[2020-09-10 12:10] LABS: Appearance CLOUDY (CLEAR); Bacteria FEW /HPF (NEGATIVE); Bilirubin NEGATIVE (NEGATIVE); Blood NEGATIVE Ery/ul (0-5); Epithelial Cells MODERATE /HPF (FEW); Glucose NEGATIVE (NEGATIVE); Hyaline Casts 0-2 /LPF (0-2); INFLUENZA A NEGATIVE (NEGATIVE); INFLUENZA B NEGATIVE (NEGATIVE); Ketones NEGATIVE (NEGATIVE); Leukocyte Esterase MODERATE (NEGATIVE); Mucus SLIGHT /HPF (NEGATIVE); Nitrite NEGATIVE (NEGATIVE); Protein,Urine Dip 30 (Negative); RBC 0-2 /HPF (0-2); RESPIRATORY SYNCTIAL VIRUS NEGATIVE (Negative); Specific Gravity 1.024 (1.005-1.025); Urobilinogen NEGATIVE mg/dL (0-1)
[2020-09-10 12:26] VITALS: BP 127/92; PULSE 64; O2SAT 93
[2020-09-10] MEDS ORDERED: ROCEPHIN 1 Gm-D5w 50 ml Bag** 1 G/50 ML IVPB IV STA (12:34)
[2020-09-10] MEDS ORDERED: ROCEPHIN 1 Gm-D5w 50 ml Bag** 1 G/50 ML IVPB IV ONE (12:39)
[2020-09-10] MEDS ORDERED: Sodium Chloride 0.9% 1000 ML 1,000 ML ONE (12:39)
== END 2020-09-10 14:05 | disposition home or self-care (01) ==
LOC: ED 10:05
DX: N39.0 Urinary tract infection, site not specified (principal); D69.6 Thrombocytopenia, unspecified; G47.00 Insomnia, unspecified
CPT/HCPCS: 36000; 36415; 71045; 80053; 81001; 82728; 83605; 83615; 84484; 85027; 85379; 85610; 86308; 87040; 87077; 87086; 87186; 87631; 93005; 93041; 94760; 96360; 96365; 96374; 99284; J0696

== ENCOUNTER 2020-11-16 19:12 | Emergency (ER) | payer SELFPAY ==
--- NOTE | 2020-11-16 19:34 | ERPHSYRPT ---
- History of Present Illness Time Seen by Provider: 11/16/20 19:30 Historian: patient Exam Limitations: no limitations Patient Subjective Stated Complaint: A burning discomfort in her esophagus. She has GERD and is on prilosec, but still having symptoms and an EGD is scheduled soon. Tried an OTC antacid today with little relief. She did not think it was a heart pain, but she tried a NTG anyway, that did not help at all. Physician History: A burning esophageal discomfort for a day. She takes prilosec routinely, but still having symptoms. An EGD is scheduled soon. She tried an OTC antacid today without much relief. She also tried a NTG, did not help at all. Timing/Duration: yesterday, gradual onset Activities at Onset: none Quality: burning Location: substernal, epigastric Chest Pain Radiation: no radiation Severity of Pain-Max: moderate Severity of Pain-Current: mild Modifying Factors: Improves With: nothing Associated Symptoms: heartburn, No nausea, No vomiting, No shortness of breath, No fever Prior Chest Pain/Cardiac Workup: cardiac cath Nitro Today/Relief: 0.4 mg x 1, provided at home, no relief Aspirin Treatment Today: 81 mg x 1, provided at home Allergies/Adverse Reactions: morphine Allergy (Intermediate, Verified 11/16/20 19:30) levofloxacin [From Levaquin] Adverse Reaction (Intermediate, Verified 11/16/20 19:30) PT STATES ONE TIME SHE HAD THIS MEDICINE AND HER VEINS ALL TURNED BRIGHT RED Home Medications: Albuterol Sulfate [Ventolin Hfa] 8 gm IH Q6-8HPRN PRN 02/21/18 [History] Meclizine HCl 25 mg [Antivert 25 mg] 25 mg PO BID 02/21/18 [History] Ropinirole HCl [Requip] 2 mg PO HS 02/21/18 [History] carvediloL [Carvedilol] 6.25 mg PO BID 02/22/18 [History] Fluoxetine HCl 20 mg [Prozac 20 MG] 20 mg PO DAILY 07/15/20 [History] Gabapentin 300 mg PO TID 07/15/20 [History] Glipizide [Glipizide ER] 2.5 mg PO DAILY 07/15/20 [History] Metformin HCl 500 mg [Glucophage 500 MG] 500 mg PO BID 07/15/20 [History] Prazosin HCl 1 mg PO HS 07/15/20 [History] Omeprazole Magnesium [Prilosec Otc] 20 mg PO BID 07/16/20 [History] Metoclopramide HCl 5 mg PO UD 11/16/20 [History] Nitroglycerin 0.4 mg Tablet [Nitrostat 0.4 MG Tablet] 0.4 mg SL UD 11/16/20 [History] Pravastatin Sodium 20 mg PO DAILY 11/16/20 [History] Hx Tetanus, Diphtheria Vaccination/Date Given: Yes Hx Influenza Vaccination/Date Given: No Hx Pneumococcal Vaccination/Date Given: Yes Travel Risk - International Travel Have you traveled outside of the country in past 3 weeks: No - Coronavirus Screening Are you exhibiting any of the following symptoms?: No Close contact with a COVID-19 positive Pt in past 14-21 Days: No - Review of Systems Constitutional: No Symptoms Eyes: No Symptoms Ears, Nose, & Throat: No Symptoms Respiratory: No Symptoms Cardiac: No Symptoms Abdominal/Gastrointestinal: Other (GERD) Genitourinary Symptoms: No Symptoms Musculoskeletal: No Symptoms Skin: No Symptoms Neurological: No Symptoms Psychological: No Symptoms Endocrine: No Symptoms Hematologic/Lymphatic: No Symptoms Immunological/Allergic: No Symptoms All Other Systems: Reviewed and Negative - Past Medical History Pertinent Past Medical History: Yes Neurological History: Seizures ENT History: Cataracts Cardiac History: High Cholesterol, Hypertension, Other Respiratory History: Asthma, Bronchitis, COPD Endocrine Medical History: Diabetes Type II, Other Musculoskeletal History: Arthritis, Osteoarthritis GI Medical History: GERD History: No Pertinent History Psycho-Social History: Anxiety, Depression Female Reproductive Disorders: No Pertinent History Other Medical History: 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 LEAKING HEART VALVE - Past Surgical History Past Surgical History: Yes Neuro Surgical History: No Pertinent History Cardiac: Angioplasty, Cardiac Catheterization Respiratory: No Pertinent History Gastrointestinal: Cholecystectomy Genitourinary: No Pertinent History Musculoskeletal: No Pertinent History, Orthopedic Surgery Female Surgical History: Tubal Ligation Other Surgical History: HEART CATH, left rotator cuff in oct 2015. "leaky heart valve"; right thumb surgery - Social History Smoking Status: Never smoker How long have you smoked: 6 YEARS Exposure to second hand smoke: Yes Alcohol Use: None Drug Use: none Patient Lives Alone: No Significant Family History: no pertinent family hx - Nursing Vital Signs Nursing Vital Signs: Initial Vital Signs Temperature 97.3 F 11/16/20 19:13 Pulse Rate 72 11/16/20 19:13 Respiratory Rate 20 11/16/20 19:13 Blood Pressure 145/71 11/16/20 19:13 O2 Sat by Pulse Oximetry 98 11/16/20 19:13 Pain Scale Pain Intensity 4 - Physical Exam General Appearance: no apparent distress, obese Eye Exam: PERRL/EOMI, eyes nml inspection Ears, Nose, Throat Exam: normal ENT inspection Neck Exam: normal inspection, non-tender Respiratory Exam: normal breath sounds, lungs clear, No chest tenderness, No respiratory distress Cardiovascular Exam: regular rate/rhythm, normal heart sounds, normal peripheral pulses Gastrointestinal/Abdomen Exam: soft, normal bowel sounds, No tenderness, No distention, No mass, No guarding Pelvic Exam: not done Rectal Exam: deferred Back Exam: normal inspection Extremity Exam: normal inspection, normal range of motion Neurologic Exam: alert, oriented x 3, cooperative Skin Exam: normal color, warm, dry Lymphatic Exam: No adenopathy SpO2 Interpretation: normal SpO2: 97 O2 Delivery: Room Air - Course Nursing assessment & vital signs reviewed: Yes EKG Interpreted by Me: RATE (70), Sinus Rhythm, NORMAL AXIS, NORMAL INTERVALS, NORMAL QRS, NORMAL ST-T Ordered Tests: Active Orders 24 hr Category Date Time Status CHEST 1 VIEW (PORTABLE) Stat Exams 11/16/20 19:48 Taken CBC W DIFF Stat Lab 11/16/20 20:17 Completed CMP Stat Lab 11/16/20 20:17 Completed TROPONIN Q3H Lab 11/16/20 20:17 Completed TROPONIN Q3H Lab 11/16/20 23:00 Ordered Medication Summary Discontinued Medications Generic Name Dose Route Start Last Admin Trade Name Freq PRN Reason Stop Dose Admin Al Hydrox/Mg Hydrox/Simethicone Confirm 11/16/20 19:58 Maalox Es 30 Ml Unit Dose Administered 11/16/20 19:59 Dose 30 ml .ROUTE .STK-MED ONE Lidocaine HCl Confirm 11/16/20 19:57 Xylocaine Hcl Viscous * Administered 11/16/20 19:58 Dose 15 ml .ROUTE .STK-MED ONE Magnesium Hydroxide 45 ml 11/16/20 19:50 11/16/20 20:00 Gi Cocktail 45 Ml (Maalox/Lidocaine) PO 11/16/20 19:51 45 ml STAT ONE Administration Sucralfate 1 g 11/16/20 20:48 11/16/20 20:55 Carafate 1 Gm PO 11/16/20 20:49 1 g STAT ONE Administration Sucralfate Confirm 11/16/20 20:54 Carafate 1 Gm Administered 11/16/20 20:55 Dose 1 g PO .STK-MED ONE Labs unremarkable. CXR neg. Lab/Rad Data: Laboratory Result Diagrams 11/16/20 20:17 11/16/20 20:17 Laboratory Results 11/16/20 11/16/20 11/16/20 Range/Units 20:17 20:17 20:17 WBC 6.6 (4.0-10.5) K/mm3 RBC 4.36 (4.1-5.4) M/mm3 Hgb 13.1 (12.0-16.0) gm/dl Hct 40.6 (35-47) % MCV 93.1 (78-100) fl MCH 30.0 (26-32) pg MCHC 32.3 (32-36) g/dl RDW 12.4 (11.5-14.0) % Plt Count 222 (150-450) K/mm3 MPV 11.1 H (7.5-11.0) fl Gran % 42.0 (36.0-66.0) % Eos # (Auto) 0.46 (0-0.5) Absolute Lymphs (auto) 2.73 (1.0-4.6) Absolute Monos (auto) 0.60 (0.0-1.3) Lymphocytes % 41.4 (24.0-44.0) % Monocytes % 9.1 (0.0-12.0) % Eosinophils % 7.0 H (0.00-5.0) % Basophils % 0.5 (0.0-0.4) % Absolute Granulocytes 2.77 (1.4-6.9) Basophils # 0.03 (0-0.4) Sodium 135 L (137-145) mmol/L Potassium 4.3 (3.5-5.1) mmol/L Chloride 104 (98-107) mmol/L Carbon Dioxide 26 (22-30) mmol/L Anion Gap 9.2 (5-15) MEQ/L BUN 12 (7-17) mg/dL Creatinine 0.78 (0.52-1.04) mg/dL Estimated GFR > 60.0 ML/MIN Glucose 100 (74-106) mg/dL Calcium 9.0 (8.4-10.2) mg/dL Total Bilirubin 0.40 (0.2-1.3) mg/dL AST 31 (14-36) U/L ALT 26 (0-35) U/L Alkaline Phosphatase 86 (38-126) U/L Troponin I < 0.012 (0.000-0.034) ng/mL Serum Total Protein 7.6 (6.3-8.2) g/dL Albumin 4.2 (3.5-5.0) g/dL CXR neg. - Progress Progress: improved, re-examined Air Movement: good Progress Note: 11/16/20 22:05 She feels some better after a GI cocktail. History and symptoms still consistent with GERD. Blood Culture(s) Obtained: No Antibiotics given: No Counseled pt/family regarding: lab results, diagnosis, need for follow-up, rad results - Departure Departure Disposition: Home Clinical Impression: GERD with esophagitis Qualifiers: Esophagitis bleeding: without hemorrhage Qualified Code(s): K21.00 - Gastro- esophageal reflux disease with esophagitis, without bleeding Condition: Stable Critical Care Time: No Referrals: CAROL ANN ALCARAZ MD [Primary Care Provider] - Instructions: Acid Reflux and GERD in Adults (DC) Additional Instructions: Try the medicine carafate in addition to your prilosec. Antacids (OTC) may be taken as well. Recheck with your if not better. Prescriptions: Sucralfate 1 gm [Carafate 1 GM] 1 g PO ACHS 10 Days #40 tablet
[2020-11-16] MEDS ORDERED: GI COCKTAIL 45 ML (Maalox/Lidocaine) PO ONE (19:50)
[2020-11-16] MEDS ORDERED: XYLOCAINE HCl Viscous ONE (19:57)
[2020-11-16] MEDS ORDERED: MAALOX ES 30 ML UNIT DOSE ONE (19:58)
[2020-11-16 20:17] LABS: Absolute Neutrophil Ct (ANC) 2.77 (1.4-6.9); BASOPHIL % 0.5 % (0.0-0.4); Basophil (Absolute #) 0.03 (0-0.4); Eosinophil (Absolute #) 0.46 (0-0.5); Hematocrit 40.6 % (35-47); Hemoglobin 13.1 gm/dl (12.0-16.0); Lymphocyte (Absolute #) 2.73 (1.0-4.6); Lymphocytes % 41.4 % (24.0-44.0); Mean Cell Volume 93.1 fl (78-100); Mean Corpuscular Hgb Concent. 32.3 g/dl (32-36); Mean Platelet Volume 11.1 fl (7.5-11.0); Monocytes % 9.1 % (0.0-12.0); Platelet Count 222 K/mm3 (150-450); Red Blood Count 4.36 M/mm3 (4.1-5.4); Red Cell Distribution Width 12.4 % (11.5-14.0); White Blood Count 6.6 K/mm3 (4.0-10.5)
[2020-11-16 20:18] VITALS: O2SAT 97
[2020-11-16 20:27] LABS: ALBUMIN 4.2 g/dL (3.5-5.0); ALKALINE PHOSPHATASE 86 U/L (38-126); ANION GAP 9.2 MEQ/L (5-15); BLOOD UREA NITROGEN 12 mg/dL (7-17); CHLORIDE 104 mmol/L (98-107); Carbon Dioxide 26 mmol/L (22-30); Creatinine 1 0.78 mg/dL (0.52-1.04); EST GLOMERULAR FILTRATION RATE > 60.0 ML/MIN; Glucose 100 mg/dL (74-106); Potassium 4.3 mmol/L (3.5-5.1); SGOT/AST 31 U/L (14-36); SGPT/ALT 26 U/L (0-35); SODIUM 135 mmol/L (137-145); Total Protein 7.6 g/dL (6.3-8.2)
[2020-11-16] MEDS ORDERED: Carafate 1 GM PO ONE ×2 (20:48→20:54)
[2020-11-16 21:10] VITALS: BP 121/71; PULSE 71
--- NOTE | 2020-11-17 08:38 | XRAY ---
Indication: Chest pain. Comparison: September 10, 2020. Portable chest continues to demonstrate normal heart and lungs. Bony thorax intact again with mild degenerative changes. No new/acute findings.
== END 2020-11-16 21:17 | disposition home or self-care (01) ==
LOC: ED 19:12
DX: K21.00 Gastro-esophageal reflux disease with esophagitis, without bleeding (principal); Z79.899 Other long term (current) drug therapy; I10 Essential (primary) hypertension; E78.00 Pure hypercholesterolemia, unspecified; E11.9 Type 2 diabetes mellitus without complications; J44.9 Chronic obstructive pulmonary disease, unspecified
CPT/HCPCS: 36000; 36415; 71045; 80053; 84484; 85025; 93005; 99284; A9270-GY

== ENCOUNTER 2021-01-24 04:06 | Emergency (ER) | payer SELFPAY ==
--- NOTE | 2021-01-24 05:34 | ERPHSYRPT ---
- History of Present Illness Time Seen by Provider: 01/24/21 04:25 Patient Subjective Stated Complaint: pt states "I fell last night in the driveway." Triage Nursing Assessment: pt ambulated into the er; pt is axo x3; c/o fall; pt states pain to rt elbow, rt wrist and rt hand, rt ankle, back; pt states 7/10 to affected areas; pt states that pain is sharp to rt middle finger; no deformity present to rt elbow, rt hand, rt ankle, and back; no bruising present; no swelling present to extremities; pt is hypertensive Physician History: Lalit is a 55-year-old white female who fell at 930 last night in her driveway. She had no loss of consciousness. She complains of pain in the right hip lower back right foot right ankle right hand and right wrist. Denies other injury Occurred: hours ago (9) Reason for Fall: unknown Injuries/Pain Location: upper extremity, back, pelvis, lower extremity Loss of Consciousness: no loss of consciousness Quality: throbbing Severity of Pain-Max: moderate Severity of Pain-Current: moderate Modifying Factors: Improves With: movement Associated Symptoms (Fall): back pain, extremity injury Allergies/Adverse Reactions: morphine Allergy (Intermediate, Verified 01/24/21 04:13) levofloxacin [From Levaquin] Adverse Reaction (Intermediate, Verified 01/24/21 04:13) PT STATES ONE TIME SHE HAD THIS MEDICINE AND HER VEINS ALL TURNED BRIGHT RED Home Medications: Albuterol Sulfate [Ventolin Hfa] 8 gm IH Q6-8HPRN PRN 02/21/18 [History] Meclizine HCl 25 mg [Antivert 25 mg] 25 mg PO BID 02/21/18 [History] Ropinirole HCl [Requip] 2 mg PO HS 02/21/18 [History] carvediloL [Carvedilol] 6.25 mg PO BID 02/22/18 [History] Fluoxetine HCl 20 mg [Prozac 20 MG] 20 mg PO DAILY 07/15/20 [History] Gabapentin 300 mg PO TID 07/15/20 [History] Glipizide [Glipizide ER] 2.5 mg PO DAILY 07/15/20 [History] Metformin HCl 500 mg [Glucophage 500 MG] 500 mg PO BID 07/15/20 [History] Prazosin HCl 1 mg PO HS 07/15/20 [History] Omeprazole Magnesium [Prilosec Otc] 20 mg PO BID 07/16/20 [History] Metoclopramide HCl 5 mg PO UD 11/16/20 [History] Nitroglycerin 0.4 mg Tablet [Nitrostat 0.4 MG Tablet] 0.4 mg SL UD 11/16/20 [History] Pravastatin Sodium 20 mg PO DAILY 11/16/20 [History] Hx Tetanus, Diphtheria Vaccination/Date Given: Yes Hx Influenza Vaccination/Date Given: No Hx Pneumococcal Vaccination/Date Given: Yes Travel Risk - International Travel Have you traveled outside of the country in past 3 weeks: No - Coronavirus Screening Are you exhibiting any of the following symptoms?: No Close contact with a COVID-19 positive Pt in past 14-21 Days: No - Review of Systems Constitutional: No Fever, No Chills Eyes: No Symptoms Ears, Nose, & Throat: No Symptoms Respiratory: No Cough, No Dyspnea Cardiac: No Chest Pain, No Edema, No Syncope Abdominal/Gastrointestinal: No Abdominal Pain, No Nausea, No Vomiting, No Diarrhea Genitourinary Symptoms: No Dysuria Musculoskeletal: Back Pain, Fall, Joint Pain, Joint Swelling, No Neck Pain Skin: No Rash Neurological: No Dizziness, No Focal Weakness, No Sensory Changes Psychological: No Symptoms Endocrine: No Symptoms All Other Systems: Reviewed and Negative - Past Medical History Pertinent Past Medical History: Yes Neurological History: Seizures ENT History: Cataracts Cardiac History: High Cholesterol, Hypertension, Other Respiratory History: Asthma, Bronchitis, COPD Endocrine Medical History: Diabetes Type II, Other Musculoskeletal History: Arthritis, Osteoarthritis GI Medical History: Diverticulitis, GERD History: No Pertinent History Psycho-Social History: Anxiety, Depression Female Reproductive Disorders: No Pertinent History Other Medical History: 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 LEAKING HEART VALVE - Past Surgical History Past Surgical History: Yes Neuro Surgical History: No Pertinent History Cardiac: Angioplasty, Cardiac Catheterization Respiratory: No Pertinent History Gastrointestinal: Cholecystectomy Genitourinary: No Pertinent History Musculoskeletal: No Pertinent History, Orthopedic Surgery Female Surgical History: Tubal Ligation Other Surgical History: HEART CATH, left rotator cuff in oct 2015. "leaky heart valve"; right thumb surgery - Social History Smoking Status: Former smoker How long have you smoked: 6 YEARS Exposure to second hand smoke: No Alcohol Use: None Drug Use: none Patient Lives Alone: No Significant Family History: no pertinent family hx - Female History Hx Now: No - Nursing Vital Signs Nursing Vital Signs: Initial Vital Signs Temperature 98.2 F 01/24/21 04:14 Pulse Rate 90 01/24/21 04:14 Respiratory Rate 20 01/24/21 04:14 Blood Pressure 147/117 01/24/21 04:14 O2 Sat by Pulse Oximetry 98 01/24/21 04:14 Pain Scale Pain Intensity 7 - [place] Coma Score Best Eye Response ([place]): (4) open spontaneously Best Verbal Response ([place]): (5) oriented Best Motor Response ([place]): (6) obeys commands [place] Total: 15 - Physical Exam General Appearance: mild distress Head Injury: no evidence of injury Eye Exam: PERRL/EOMI ENT Exam: airway nml Neck Exam: supple, trachea midline Respiratory/Chest Exam: normal breath sounds, No chest tenderness Cardiovascular Exam: normal heart sounds, regular rate/rhythm Gastrointestinal Exam: soft, normal bowel sounds, tenderness Back Exam: normal inspection, vertebral tenderness (Lumbar area) Extremity Exam: contusions, lacerations (Superficial abrasions), pain with movement Neurologic Exam: alert, oriented x 3 Skin Exam: abrasion SpO2 Interpretation: normal SpO2: 98 O2 Delivery: Room Air - Course Nursing assessment & vital signs reviewed: Yes - Radiology Exams Other X-ray Interpretation: Interpreted by me, Negative (Trays of the right hip lumbar spine right ankle left right hand and wrist all negative) Ordered Tests: Active Orders 24 hr Category Date Time Status ANKLE (3 VIEWS) Stat Exams 01/24/21 04:32 Taken HAND (MINIMUM 3 VIEWS) Stat Exams 01/24/21 04:33 Taken HIP UNI (2V) INCL PEL IF DONE Stat Exams 01/24/21 04:40 Taken LUMBAR LIMITED (2 OR 3 VIEWS) Stat Exams 01/24/21 04:34 Taken - Progress Progress: unchanged - Departure Departure Disposition: Home Clinical Impression: Multiple contusions, Right ankle sprain, Right wrist sprain Condition: Stable Critical Care Time: No Referrals: CAROL ANN ALCARAZ MD [Primary Care Provider] - Instructions: Contusion (DC), Ankle Sprain (DC), Wrist Sprain (DC) Prescriptions: Oxycodone HCl/Acetaminophen [Percocet 5-325 mg Tablet] 1 each PO Q6H PRN PRN 3 Days #12 tablet MDD 4 PRN Reason: Pain
[2021-01-24 05:45] VITALS: PULSE 81; O2SAT 97
[2021-01-24 05:54] VITALS: BP 135/87
--- NOTE | 2021-01-24 07:41 | XRAY ---
Indication: Pain following fall. Comparison: None 3 view right hand demonstrates old distal 5th metacarpal fracture. No other bony, articular, or soft tissue abnormalities.
--- NOTE | 2021-01-24 07:43 | XRAY ---
Indication: Pain following fall. Comparison: February 26, 2019. 3 view right ankle again demonstrates anterior lateral soft tissue swelling and small heel spurs. No new bony, articular, or soft tissue abnormalities.
--- NOTE | 2021-01-24 07:45 | XRAY ---
Indication: Pain following fall. Comparison: September 15, 2008. 3 view lumbar spine again demonstrates normal alignment with vertebral body heights/disc spaces maintained and incidental bilateral tubal ligation clips. Progressive worsening mild/moderate multilevel thoracolumbar endplate spurring. No other bony, articular, or soft tissue abnormalities.
--- NOTE | 2021-01-24 07:47 | XRAY ---
Indication: Pain following fall. Comparison: None AP pelvis and 2 view right hip demonstrates bilateral tubal ligation clips and small right gluteal calcified injection granuloma. No other bony, articular, or soft tissue abnormalities.
== END 2021-01-24 05:50 | disposition home or self-care (01) ==
LOC: ED 04:06
DX: S90.01XA Contusion of right ankle, initial encounter (principal); S60.211A Contusion of right wrist, initial encounter; S93.401A Sprain of unspecified ligament of right ankle, initial encounter; S63.501A Unspecified sprain of right wrist, initial encounter; W18.39XA Other fall on same level, initial encounter; M79.641 Pain in right hand; M25.531 Pain in right wrist; M25.551 Pain in right hip; M25.571 Pain in right ankle and joints of right foot; M25.521 Pain in right elbow; M54.9 Dorsalgia, unspecified; Z79.899 Other long term (current) drug therapy; E78.00 Pure hypercholesterolemia, unspecified; I10 Essential (primary) hypertension; E11.9 Type 2 diabetes mellitus without complications; J44.9 Chronic obstructive pulmonary disease, unspecified
CPT/HCPCS: 72100; 73130; 73502; 73610; 99284; L3908

== ENCOUNTER 2021-03-20 22:00 | Emergency (ER) | payer SELFPAY ==
--- NOTE | 2021-03-20 22:12 | ERPHSYRPT ---
- History of Present Illness Time Seen by Provider: 03/20/21 22:12 Source: patient, family Exam Limitations: no limitations Physician History: This is a morbidly obese white female that is 55 years old and presents with complaints of pain on her left ribs, left knee, left lower leg, left ankle and right hand after falling. She missed a step at her home. She did not lose consciousness. Patient does take Percocet on a daily basis. She came directly to the emergency department without taking any of her Percocet at home. Occurred: just prior to arrival Reason for Fall: lost balance (Missed a step) Injuries/Pain Location: upper extremity (Right hand), chest (Left ribs), lower extremity (Left knee left lower leg left ankle) Loss of Consciousness: no loss of consciousness Quality: aching Severity of Pain-Max: moderate Severity of Pain-Current: moderate Modifying Factors: Improves With: movement Associated Symptoms (Fall): denies symptoms Allergies/Adverse Reactions: morphine Allergy (Intermediate, Verified 03/20/21 22:15) levofloxacin [From Levaquin] Adverse Reaction (Intermediate, Verified 03/20/21 22:15) PT STATES ONE TIME SHE HAD THIS MEDICINE AND HER VEINS ALL TURNED BRIGHT RED Home Medications: Albuterol Sulfate [Ventolin Hfa] 8 gm IH Q6-8HPRN PRN 02/21/18 [History] Meclizine HCl 25 mg [Antivert 25 mg] 25 mg PO BID 02/21/18 [History] Ropinirole HCl [Requip] 2 mg PO HS 02/21/18 [History] carvediloL [Carvedilol] 6.25 mg PO BID 02/22/18 [History] Fluoxetine HCl 20 mg [Prozac 20 MG] 20 mg PO DAILY 07/15/20 [History] Gabapentin 300 mg PO TID 07/15/20 [History] Glipizide [Glipizide ER] 2.5 mg PO DAILY 07/15/20 [History] Metformin HCl 500 mg [Glucophage 500 MG] 500 mg PO BID 07/15/20 [History] Prazosin HCl 1 mg PO HS 07/15/20 [History] Omeprazole Magnesium [Prilosec Otc] 20 mg PO BID 07/16/20 [History] Metoclopramide HCl 5 mg PO UD 11/16/20 [History] Nitroglycerin 0.4 mg Tablet [Nitrostat 0.4 MG Tablet] 0.4 mg SL UD 11/16/20 [History] Pravastatin Sodium 20 mg PO DAILY 11/16/20 [History] Hx Tetanus, Diphtheria Vaccination/Date Given: Yes Hx Influenza Vaccination/Date Given: No Hx Pneumococcal Vaccination/Date Given: Yes Travel Risk - International Travel Have you traveled outside of the country in past 3 weeks: No - Coronavirus Screening Are you exhibiting any of the following symptoms?: No Close contact with a COVID-19 positive Pt in past 14-21 Days: No - Vaccine Status Have you recieved a Covid-19 vaccination: No - Review of Systems Constitutional: No Symptoms Eyes: No Symptoms Ears, Nose, & Throat: No Symptoms Respiratory: No Symptoms Cardiac: No Symptoms Abdominal/Gastrointestinal: No Symptoms Genitourinary Symptoms: No Symptoms Musculoskeletal: Fall, Injury (Right hand, left ankle, left leg, left knee, left ribs) Skin: No Symptoms Neurological: No Symptoms Psychological: No Symptoms Endocrine: No Symptoms Hematologic/Lymphatic: No Symptoms Immunological/Allergic: No Symptoms All Other Systems: Reviewed and Negative - Past Medical History Pertinent Past Medical History: Yes Neurological History: Seizures ENT History: Cataracts Cardiac History: High Cholesterol, Hypertension, Other Respiratory History: Asthma, Bronchitis, COPD Endocrine Medical History: Diabetes Type II, Other Musculoskeletal History: Arthritis, Osteoarthritis GI Medical History: Diverticulitis, GERD History: No Pertinent History Psycho-Social History: Anxiety, Depression Female Reproductive Disorders: No Pertinent History Other Medical History: 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 LEAKING HEART VALVE - Past Surgical History Past Surgical History: Yes Neuro Surgical History: No Pertinent History Cardiac: Angioplasty, Cardiac Catheterization Respiratory: No Pertinent History Gastrointestinal: Cholecystectomy Genitourinary: No Pertinent History Musculoskeletal: No Pertinent History, Orthopedic Surgery Female Surgical History: Tubal Ligation Other Surgical History: HEART CATH, left rotator cuff in oct 2015. "leaky heart valve"; right thumb surgery - Social History Smoking Status: Former smoker How long have you smoked: 6 YEARS Exposure to second hand smoke: No Alcohol Use: None Drug Use: none Patient Lives Alone: No Significant Family History: no pertinent family hx - Nursing Vital Signs Nursing Vital Signs: Initial Vital Signs Temperature 98.3 F 04/30/21 22:01 Pulse Rate 95 H 03/20/21 22:01 Respiratory Rate 16 03/20/21 22:01 Blood Pressure 148/118 03/20/21 22:01 O2 Sat by Pulse Oximetry 97 03/20/21 22:01 Pain Scale Pain Intensity 0 - [place] Coma Score Best Eye Response ([place]): (4) open spontaneously Best Verbal Response ([place]): (5) oriented Best Motor Response ([place]): (6) obeys commands [place] Total: 15 - Physical Exam General Appearance: no apparent distress, alert, anxiety, obese Head Injury: no evidence of injury Eye Exam: PERRL/EOMI, eyes nml inspection ENT Exam: airway nml, nml ext.inspection, No evidence of ENT injury, No dental injury Neck Exam: supple, trachea midline, full range of motion, normal alignment, normal inspection Respiratory/Chest Exam: normal breath sounds, rib tenderness (Left), No respiratory distress, No ecchymosis, No crepitus Cardiovascular Exam: normal heart sounds, regular rate/rhythm, normal peripheral pulses Gastrointestinal Exam: soft, normal bowel sounds, No tenderness Rectal Exam: not done Back Exam: normal inspection, normal range of motion, No CVA tenderness, No vertebral tenderness Extremity Exam: normal inspection, normal range of motion, pelvis stable, tenderness (Left knee, left ankle, left lower leg, right hand) Neurologic Exam: alert, oriented x 3, cooperative, reconditioning associate II-XII nml as tested, normal mood/affect, nml cerebellar function, nml station & gait, sensation nml Skin Exam: normal color, warm, dry SpO2 Interpretation: normal O2 Delivery: Room Air - Course Nursing assessment & vital signs reviewed: Yes Ordered Tests: Active Orders 24 hr Category Date Time Status ANKLE (3 VIEWS) Stat Exams 03/20/21 22:37 Taken HAND (MINIMUM 3 VIEWS) Stat Exams 03/20/21 22:38 Taken KNEE (1 OR 2 VIEW) Stat Exams 03/20/21 22:37 Taken LOWER LEG Stat Exams 03/20/21 22:37 Taken RIBS UNILATERAL Stat Exams 03/20/21 22:38 Taken Medication Summary Generic Name Dose Route Start Last Admin Trade Name Freq PRN Reason Stop Dose Admin Oxycodone/Acetaminophen 2 tab 03/20/21 23:42 Oxycodone-Acetaminophen 10-325 PO 03/20/21 23:43 SENT HOME W/ PATIENT STA - Departure Departure Disposition: Home Clinical Impression: Fall with no injury, Contusion Condition: Stable Critical Care Time: No Referrals: CAROL ANN ALCARAZ MD [Primary Care Provider] - Additional Instructions: Use your remaining Percocet medication for pain control. Call your primary care doctor/prescribing doctor on Tuesday, March 23, 2021 for further pain management.
[2021-03-20 23:21] VITALS: O2SAT 98
[2021-03-20] MEDS ORDERED: OXYCODONE-ACETAMINOPHEN 10-325 PO STA ×2 (23:42→23:43)
[2021-03-21] MEDS ORDERED: OXYCODONE-ACETAMINOPHEN 10-325 ONE (00:07)
[2021-03-21 00:24] VITALS: BP 140/80; PULSE 78
--- NOTE | 2021-03-21 08:09 | XRAY ---
Indication: Pain following fall. Comparison: None 3 view right hand demonstrates old distal 5th metacarpal fracture. No other bony, articular, or soft tissue abnormalities.
--- NOTE | 2021-03-21 08:09 | XRAY ---
Indication: Pain following fall. Comparison: None 3 view left ankle demonstrates large plantar heel spur. No other bony, articular, or soft tissue abnormalities.
--- NOTE | 2021-03-21 08:11 | XRAY ---
Indication: Pain following fall. Comparison: None 2 view left ribs demonstrates mild multilevel thoracolumbar degenerative spondylosis, minimal thoracic levoscoliosis, and cholecystectomy clips. No other bony, articular, or soft tissue abnormalities.
--- NOTE | 2021-03-21 08:13 | XRAY ---
Indication: Pain following fall. Comparison: None AP/lateral left knee demonstrates minimal medial joint space narrowing and small posterior fabella. No other bony, articular, or soft tissue abnormalities.
--- NOTE | 2021-03-21 08:15 | XRAY ---
Indication: Pain following fall. Comparison: None 2 view left lower leg interpreted with knee and ankle exam of the same day. No bony, articular, or soft tissue abnormalities.
== END 2021-03-21 00:21 | disposition home or self-care (01) ==
LOC: ED 22:00
DX: R07.81 Pleurodynia (principal); M25.562 Pain in left knee; M25.572 Pain in left ankle and joints of left foot; M79.662 Pain in left lower leg; M79.641 Pain in right hand; I10 Essential (primary) hypertension; J44.9 Chronic obstructive pulmonary disease, unspecified; E11.9 Type 2 diabetes mellitus without complications; G40.909 Epilepsy, unspecified, not intractable, without status epilepticus; T14.8XXA Other injury of unspecified body region, initial encounter; W10.8XXA Fall (on) (from) other stairs and steps, initial encounter; Y92.9 Unspecified place or not applicable
CPT/HCPCS: 71100; 73130; 73560; 73590; 73610; 99283; A9270-GY

== ENCOUNTER 2021-07-02 18:16 | Emergency (ER) | payer SELFPAY ==
--- NOTE | 2021-07-02 18:18 | ERPHSYRPT ---
- History of Present Illness Time Seen by Provider: 07/02/21 18:18 Source: patient Exam Limitations: no limitations Physician History: This is a morbidly obese 55-year-old white female patient of Dr.. Alcaraz, who presents with a headache for several days and associated dizziness. Patient has a history of migraine headaches and seizure disorder. She is not on any med ication for her seizure disorder. She also has a history of coronary artery disease, chronic vertigo on meclizine, edw-mvusucm-[id number] diabetes, gastroesophageal reflux disease, elevated cholesterol. The headache is global in location. There is no visual changes. She denies chest pain. She denies shortness of breath. She has no fevers chills nausea vomiting or diarrhea Timing/Duration: day(s) (Several days), other (Symptoms not necessarily worse but persistent.) Quality: aching Head Pain Location: global Severity of Pain-Max: mild (To moderate) Severity of Pain-Current: mild (To moderate) Recent Head Trauma: no recent headache/trauma, chronic headaches Modifying Factors: Worsens With: exposure to light, noise Associated Symptoms: dizziness, No loss of consciousness, No nausea/vomiting, No sensitive to light, No trouble walking Previous symptoms: same symptoms as today, recently treated, no recent treatment Allergies/Adverse Reactions: morphine Allergy (Intermediate, Verified 07/02/21 19:02) levofloxacin [From Levaquin] Adverse Reaction (Intermediate, Verified 07/02/21 19:02) PT STATES ONE TIME SHE HAD THIS MEDICINE AND HER VEINS ALL TURNED BRIGHT RED Home Medications: Meclizine HCl 25 mg [Antivert 25 mg] 25 mg PO BID 02/21/18 [History] Ropinirole HCl [Requip] 2 mg PO HS 02/21/18 [History] carvediloL [Carvedilol] 6.25 mg PO BID 02/22/18 [History] Fluoxetine HCl 20 mg [Prozac 20 MG] 20 mg PO DAILY 07/15/20 [History] Gabapentin 300 mg PO TID 07/15/20 [History] Glipizide [Glipizide ER] 2.5 mg PO DAILY 07/15/20 [History] Metformin HCl 500 mg [Glucophage 500 MG] 500 mg PO BID 07/15/20 [History] Prazosin HCl 1 mg PO HS 07/15/20 [History] Omeprazole Magnesium [Prilosec Otc] 20 mg PO BID 07/16/20 [History] Metoclopramide HCl 5 mg PO UD 11/16/20 [History] Nitroglycerin 0.4 mg Tablet [Nitrostat 0.4 MG Tablet] 0.4 mg SL UD 11/16/20 [History] Pravastatin Sodium 20 mg PO DAILY 11/16/20 [History] Hx Tetanus, Diphtheria Vaccination/Date Given: Yes Hx Influenza Vaccination/Date Given: No Hx Pneumococcal Vaccination/Date Given: Yes Travel Risk - International Travel Have you traveled outside of the country in past 3 weeks: No - Coronavirus Screening Are you exhibiting any of the following symptoms?: No Close contact with a COVID-19 positive Pt in past 14-21 Days: No - Vaccine Status Have you recieved a Covid-19 vaccination: No Degreasing Solution Reclaimer: Unknown - Vaccination Dates Date of 2cond Vaccination (if applicable): 03/19/21 Dates if Unknown: na - Review of Systems Constitutional: No Symptoms Eyes: No Symptoms Ears, Nose, & Throat: No Symptoms Respiratory: No Symptoms Cardiac: No Symptoms Abdominal/Gastrointestinal: No Symptoms Genitourinary Symptoms: No Symptoms Musculoskeletal: No Symptoms Skin: No Symptoms Neurological: Dizziness, Headache Psychological: No Symptoms Endocrine: No Symptoms Hematologic/Lymphatic: No Symptoms Immunological/Allergic: No Symptoms All Other Systems: Reviewed and Negative - Past Medical History Pertinent Past Medical History: Yes Neurological History: Seizures ENT History: Cataracts Cardiac History: High Cholesterol, Hypertension, Other Respiratory History: Asthma, Bronchitis, COPD Endocrine Medical History: Diabetes Type II, Other Musculoskeletal History: Arthritis, Osteoarthritis GI Medical History: Diverticulitis, GERD History: No Pertinent History Psycho-Social History: Anxiety, Depression Female Reproductive Disorders: No Pertinent History Other Medical History: 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 LEAKING HEART VALVE - Past Surgical History Past Surgical History: Yes Neuro Surgical History: No Pertinent History Cardiac: Angioplasty, Cardiac Catheterization Respiratory: No Pertinent History Gastrointestinal: Cholecystectomy Genitourinary: No Pertinent History Musculoskeletal: No Pertinent History, Orthopedic Surgery Female Surgical History: Tubal Ligation Other Surgical History: HEART CATH, left rotator cuff in oct 2015. "leaky heart valve"; right thumb surgery - Social History Smoking Status: Former smoker How long have you smoked: 6 YEARS Exposure to second hand smoke: No Alcohol Use: None Drug Use: none Patient Lives Alone: No Significant Family History: no pertinent family hx - Nursing Vital Signs Nursing Vital Signs: Initial Vital Signs Temperature 97.8 F 07/02/21 18:55 Pulse Rate 76 07/02/21 18:55 Respiratory Rate 20 07/02/21 18:55 Blood Pressure 146/88 07/02/21 18:55 O2 Sat by Pulse Oximetry 98 07/02/21 18:55 Pain Scale Pain Intensity 6 - Physical Exam General Appearance: no apparent distress, alert, anxiety, obese Eye Exam: PERRL/EOMI, eyes nml inspection Ears, Nose, Throat Exam: normal ENT inspection, moist mucous membranes Neck Exam: normal inspection, non-tender, supple, full range of motion Respiratory Exam: normal breath sounds, lungs clear, airway intact, No chest tenderness, No respiratory distress Cardiovascular Exam: regular rate/rhythm, normal heart sounds, normal peripheral pulses Gastrointestinal/Abdominal Exam: soft, normal bowel sounds, No tenderness Back Exam: normal inspection, normal range of motion, No CVA tenderness, No vertebral tenderness Extremity Exam: normal inspection, normal range of motion, pelvis stable Mental Status Exam: alert, oriented x 3, 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 [place] Exam: normal hearing, normal speech, PERRL Coordination/Gait Exam: normal finger to nose, normal gait, normal cerebellar function Motor/Sensory Exam: no motor deficit, no sensory deficit, no pronator drift Skin Exam: normal color, warm, dry Lymphatic Exam: No adenopathy SpO2 Interpretation: normal O2 Delivery: Room Air - Course Nursing assessment & vital signs reviewed: Yes Ordered Tests: Active Orders 24 hr Category Date Time Status IV Insertion STAT Care 07/02/21 19:29 Active HEAD WITHOUT CONTRAST [CT] Stat Exams 07/02/21 19:31 Taken CBC W DIFF Stat Lab 07/02/21 19:58 Completed CMP Stat Lab 07/02/21 19:58 Completed UA W/RFX UR CULTURE Stat Lab 07/02/21 20:00 Completed Urine Triage Profile Stat Lab 07/02/21 20:00 Completed Lab/Rad Data: Laboratory Result Diagrams 07/02/21 19:58 07/02/21 19:58 Laboratory Results 07/02/21 07/02/21 07/02/21 Range/Units 20:00 20:00 19:58 WBC (4.0-10.5) K/mm3 RBC (4.1-5.4) M/mm3 Hgb (12.0-16.0) gm/dl Hct (35-47) % MCV (78-100) fl MCH (26-32) pg MCHC (32-36) g/dl RDW (11.5-14.0) % Plt Count (150-450) K/mm3 MPV (7.5-11.0) fl Gran % (36.0-66.0) % Eos # (Auto) (0-0.5) Absolute Lymphs (auto) (1.0-4.6) Absolute Monos (auto) (0.0-1.3) Lymphocytes % (24.0-44.0) % Monocytes % (0.0-12.0) % Eosinophils % (0.00-5.0) % Basophils % (0.0-0.4) % Absolute Granulocytes (1.4-6.9) Basophils # (0-0.4) Sodium 135 L (137-145) mmol/L Potassium 4.8 (3.5-5.1) mmol/L Chloride 102 (98-107) mmol/L Carbon Dioxide 22 (22-30) mmol/L Anion Gap 16.3 H (5-15) MEQ/L BUN 12 (7-17) mg/dL Creatinine 0.76 (0.52-1.04) mg/dL Estimated GFR > 60.0 ML/MIN Glucose 113 H (74-106) mg/dL Calcium 9.5 (8.4-10.2) mg/dL Total Bilirubin 0.90 (0.2-1.3) mg/dL AST 56 H (14-36) U/L ALT 46 H (0-35) U/L Alkaline Phosphatase 92 (38-126) U/L Serum Total Protein 8.0 (6.3-8.2) g/dL Albumin 4.5 (3.5-5.0) g/dL Urine Color YELLOW (YELLOW) Urine Appearance CLEAR (CLEAR) Urine pH 6.0 (5-6) Ur Specific Wirtz 1.015 (1.005-1.025) Urine Protein NEGATIVE (Negative) Urine Ketones TRACE (NEGATIVE) Urine Blood NEGATIVE (0-5) Stu/ul Urine Nitrite NEGATIVE (NEGATIVE) Urine Bilirubin NEGATIVE (NEGATIVE) Urine Urobilinogen NEGATIVE (0-1) mg/dL Ur Leukocyte Esterase NEGATIVE (NEGATIVE) Urine WBC (Auto) 0-2 (0-5) /HPF Urine RBC (Auto) NONE (0-2) /HPF U Epithel Cells (Auto) RARE (FEW) /HPF Urine Bacteria (Auto) RARE (NEGATIVE) /HPF Urine Mucus (Auto) SLIGHT (NEGATIVE) /HPF Urine Culture Reflexed NO (NO) Urine Glucose NEGATIVE (NEGATIVE) mg/dL Urine Opiates Level NEGATIVE (NEGATIVE) Ur Methadone NEGATIVE (NEGATIVE) Urine Barbiturates NEGATIVE (NEGATIVE) Ur Phencyclidine (PCP) NEGATIVE (NEGATIVE) Urine Amphetamine NEGATIVE (NEGATIVE) U Benzodiazepine Level NEGATIVE (NEGATIVE) Urine Cocaine NEGATIVE (NEGATIVE) Urine Marijuana (THC) NEGATIVE (NEGATIVE) 07/02/21 Range/Units 19:58 WBC 7.2 (4.0-10.5) K/mm3 RBC 4.62 (4.1-5.4) M/mm3 Hgb 13.4 (12.0-16.0) gm/dl Hct 42.0 (35-47) % MCV 90.9 (78-100) fl MCH 29.0 (26-32) pg MCHC 31.9 L (32-36) g/dl RDW 12.3 (11.5-14.0) % Plt Count 229 (150-450) K/mm3 MPV 11.1 H (7.5-11.0) fl Gran % 51.3 (36.0-66.0) % Eos # (Auto) 0.31 (0-0.5) Absolute Lymphs (auto) 2.56 (1.0-4.6) Absolute Monos (auto) 0.58 (0.0-1.3) Lymphocytes % 35.7 (24.0-44.0) % Monocytes % 8.1 (0.0-12.0) % Eosinophils % 4.3 (0.00-5.0) % Basophils % 0.6 (0.0-0.4) % Absolute Granulocytes 3.69 (1.4-6.9) Basophils # 0.04 (0-0.4) Sodium (137-145) mmol/L Potassium (3.5-5.1) mmol/L Chloride (98-107) mmol/L Carbon Dioxide (22-30) mmol/L Anion Gap (5-15) MEQ/L BUN (7-17) mg/dL Creatinine (0.52-1.04) mg/dL Estimated GFR ML/MIN Glucose (74-106) mg/dL Calcium (8.4-10.2) mg/dL Total Bilirubin (0.2-1.3) mg/dL AST (14-36) U/L ALT (0-35) U/L Alkaline Phosphatase (38-126) U/L Serum Total Protein (6.3-8.2) g/dL Albumin (3.5-5.0) g/dL Urine Color (YELLOW) Urine Appearance (CLEAR) Urine pH (5-6) Ur Specific Wirtz (1.005-1.025) Urine Protein (Negative) Urine Ketones (NEGATIVE) Urine Blood (0-5) Stu/ul Urine Nitrite (NEGATIVE) Urine Bilirubin (NEGATIVE) Urine Urobilinogen (0-1) mg/dL Ur Leukocyte Esterase (NEGATIVE) Urine WBC (Auto) (0-5) /HPF Urine RBC (Auto) (0-2) /HPF U Epithel Cells (Auto) (FEW) /HPF Urine Bacteria (Auto) (NEGATIVE) /HPF Urine Mucus (Auto) (NEGATIVE) /HPF Urine Culture Reflexed (NO) Urine Glucose (NEGATIVE) mg/dL Urine Opiates Level (NEGATIVE) Ur Methadone (NEGATIVE) Urine Barbiturates (NEGATIVE) Ur Phencyclidine (PCP) (NEGATIVE) Urine Amphetamine (NEGATIVE) U Benzodiazepine Level (NEGATIVE) Urine Cocaine (NEGATIVE) Urine Marijuana (THC) (NEGATIVE) - Progress Progress: re-examined Air Movement: good Progress Note: 07/02/21 20:59 CAT scan of the head without intravenous contrast shows no acute intracranial abnormality Blood Culture(s) Obtained: No Antibiotics given: No Counseled pt/family regarding: lab results, diagnosis, need for follow-up, rad results - Departure Departure Disposition: Home Clinical Impression: Headache, Dizziness Condition: Stable Critical Care Time: No Referrals: CAROL ANN ALCARAZ MD [Primary Care Provider] - Additional Instructions: Take all your medications as prescribed. Follow-up with your prescribing physician tomorrow morning to make arrangements for a follow-up appointment
[2021-07-02 20:02] LABS: Absolute Neutrophil Ct (ANC) 3.69 (1.4-6.9); BASOPHIL % 0.6 % (0.0-0.4); Basophil (Absolute #) 0.04 (0-0.4); Eosinophil % 4.3 % (0.00-5.0); Eosinophil (Absolute #) 0.31 (0-0.5); Hemoglobin 13.4 gm/dl (12.0-16.0); Lymphocyte (Absolute #) 2.56 (1.0-4.6); Lymphocytes % 35.7 % (24.0-44.0); Mean Cell Volume 90.9 fl (78-100); Mean Corpuscular Hgb Concent. 31.9 g/dl (32-36); Mean Platelet Volume 11.1 fl (7.5-11.0); Monocyte (Absolute #) 0.58 (0.0-1.3); Monocytes % 8.1 % (0.0-12.0); Neutrophil % 51.3 % (36.0-66.0); Platelet Count 229 K/mm3 (150-450); Red Blood Count 4.62 M/mm3 (4.1-5.4); Red Cell Distribution Width 12.3 % (11.5-14.0); White Blood Count 7.2 K/mm3 (4.0-10.5)
[2021-07-02 20:15] LABS: ALBUMIN 4.5 g/dL (3.5-5.0); ALKALINE PHOSPHATASE 92 U/L (38-126); ANION GAP 16.3 MEQ/L (5-15); BLOOD UREA NITROGEN 12 mg/dL (7-17); CHLORIDE 102 mmol/L (98-107); Calcium 9.5 mg/dL (8.4-10.2); Carbon Dioxide 22 mmol/L (22-30); Creatinine 1 0.76 mg/dL (0.52-1.04); EST GLOMERULAR FILTRATION RATE > 60.0 ML/MIN; Glucose 113 mg/dL (74-106); Potassium 4.8 mmol/L (3.5-5.1); SGOT/AST 56 U/L (14-36); SGPT/ALT 46 U/L (0-35); SODIUM 135 mmol/L (137-145)
[2021-07-02 20:15] LABS: Appearance CLEAR (CLEAR); Bacteria RARE /HPF (NEGATIVE); Bilirubin NEGATIVE (NEGATIVE); Blood NEGATIVE Ery/ul (0-5); Epithelial Cells RARE /HPF (FEW); Glucose NEGATIVE (NEGATIVE); Ketones TRACE (NEGATIVE); Leukocyte Esterase NEGATIVE (NEGATIVE); Mucus SLIGHT /HPF (NEGATIVE); Nitrite NEGATIVE (NEGATIVE); Protein,Urine Dip NEGATIVE (Negative); Specific Gravity 1.015 (1.005-1.025); Urobilinogen NEGATIVE mg/dL (0-1); WBC 0-2 /HPF (0-5)
[2021-07-02 20:26] LABS: Amphetamine,Urine NEGATIVE (NEGATIVE); Barbiturate,Urine NEGATIVE (NEGATIVE); Benzodiazepine,Urine NEGATIVE (NEGATIVE); Cocaine,Urine NEGATIVE (NEGATIVE); Methadone,Urine NEGATIVE (NEGATIVE); Opiate,Urine NEGATIVE (NEGATIVE); PCP,Urine NEGATIVE (NEGATIVE); THC,Urine NEGATIVE (NEGATIVE)
[2021-07-02] MEDS ORDERED: Zofran 4 MG/2 ML VIAL IV ONE (21:15)
[2021-07-02] MEDS ORDERED: BENADRYL 50 MG/ML IV ONE (21:16)
[2021-07-02] MEDS ORDERED: DEMEROL 25MG SYRINGE IV ONE (21:16)
[2021-07-02] MEDS ORDERED: Zofran 4 MG/2 ML VIAL ONE (22:01)
[2021-07-02] MEDS ORDERED: BENADRYL 50 MG/ML ONE (22:01)
[2021-07-02] MEDS ORDERED: DEMEROL 25MG SYRINGE ONE (22:01)
[2021-07-02 22:15] VITALS: BP 123/84; PULSE 103; O2SAT 97
--- NOTE | 2021-07-03 08:46 | XRAY ---
Indication: Headache. No known injury. Multiple contiguous axial images obtained through the head without contrast. Comparison: July 20, 2020. Normal appearing brain parenchyma, ventricles, and bony calvarium. Visualized paranasal sinuses and mastoid air cells are clear. Impression: Continued normal CT head without contrast exam.
== END 2021-07-02 22:30 | disposition home or self-care (01) ==
LOC: ED 18:16
DX: R51.9 Headache, unspecified (principal); R42 Dizziness and giddiness; Z79.899 Other long term (current) drug therapy; J44.9 Chronic obstructive pulmonary disease, unspecified; E11.9 Type 2 diabetes mellitus without complications; I10 Essential (primary) hypertension
CPT/HCPCS: 36000; 36415; 70450; 80053; 80307; 81001; 85025; 96374; 96375; 99284; J1200; J2175; J2405

== ENCOUNTER 2021-10-27 11:08 | Emergency (ER) | payer SELFPAY ==
[2021-10-27] MEDS ORDERED: XYLOCAINE 1% HCL 20 ML MDV IJ ONE (11:09)
[2021-10-27] MEDS ORDERED: solu-MEDROL 125 MG, Sterile H2O 10 ml 2 ML IM ONE ×2 (11:36)
[2021-10-27] MEDS ORDERED: Rocephin 1000 MG INJ IM ONE (11:36)
[2021-10-27] MEDS ORDERED: Rocephin 1000 MG INJ ONE ×2 (11:41→11:43)
--- NOTE | 2021-10-27 11:43 | ERPHSYRPT ---
- History of Present Illness Time Seen by Provider: 10/27/21 11:30 Source: patient Exam Limitations: no limitations Patient Subjective Stated Complaint: Pt states"I have had body aches, headache, fever and wheezing for the past 3 to 4 days and my throat hurts." Triage Nursing Assessment: Pt presented alert and oriented X 3, skin wpd Pt ambulates with an upright steady gait, able to speak in clear full sentences. Pt has audible wheezes noted. Pt coughing intermittantly pt also stating her throat hurts. Physician History: This is a 56-year-old morbidly obese white female patient of Dr. Alcaraz who presented to the emergency department on her own with 3 to 4-day history of sore throat, cough and body aches. She has no known exposures individuals testing positive for COVID-19 infection. She denies chest pain. She does have a history of asthma, bronchitis and COPD. She has a history of [id number] diabetes, gastroesophageal reflux disease, elevated cholesterol, migraine headaches and seizure disorder. She has no abdominal pain. She has no nausea vomiting or diarrhea symptoms. Patient does have nebulizer treatments with albuterol at home. Patient has used hydrocodone in the past without any problems. Timing/Duration: day(s) (3 to 4 days) Cough Quality/Degree: mild Possible Cause: occasional episodes Modifying Factors: Improves With: coughing Associated Symptoms: fever, cough, wheezing, No chest pain/soreness Allergies/Adverse Reactions: morphine Allergy (Intermediate, Verified 07/02/21 19:02) levofloxacin [From Levaquin] Adverse Reaction (Intermediate, Verified 07/02/21 19:02) PT STATES ONE TIME SHE HAD THIS MEDICINE AND HER VEINS ALL TURNED BRIGHT RED Home Medications: Meclizine HCl 25 mg [Antivert 25 mg] 25 mg PO BID 02/21/18 [History] Ropinirole HCl [Requip] 2 mg PO HS 02/21/18 [History] carvediloL [Carvedilol] 6.25 mg PO BID 02/22/18 [History] Fluoxetine HCl 20 mg [Prozac 20 MG] 20 mg PO DAILY 07/15/20 [History] Gabapentin 300 mg PO TID 07/15/20 [History] Glipizide [Glipizide ER] 2.5 mg PO DAILY 07/15/20 [History] Metformin HCl 500 mg [Glucophage 500 MG] 500 mg PO BID 07/15/20 [History] Prazosin HCl 1 mg PO HS 07/15/20 [History] Omeprazole Magnesium [Prilosec Otc] 20 mg PO BID 07/16/20 [History] Nitroglycerin 0.4 mg Tablet [Nitrostat 0.4 MG Tablet] 0.4 mg SL UD 11/16/20 [History] Pravastatin Sodium 20 mg PO DAILY 11/16/20 [History] Hydrocodone/Acetaminophen [Hydrocodone-Acetamin 5-325 mg] 1 each PO DAILY 10/27/21 [History] Hx Tetanus, Diphtheria Vaccination/Date Given: Yes Hx Influenza Vaccination/Date Given: No Hx Pneumococcal Vaccination/Date Given: Yes Immunizations Up to Date: Yes Travel Risk - International Travel Have you traveled outside of the country in past 3 weeks: No - Coronavirus Screening Are you exhibiting any of the following symptoms?: Yes Symptoms: Fever, Headaches/Body Aches/Fatigue Close contact with a COVID-19 positive Pt in past 14-21 Days: No - Vaccine Status Have you recieved a Covid-19 vaccination: Yes Veterinary Pathologist: Moderna - Vaccination Dates Date of 2cond Vaccination (if applicable): 03/2021 - Review of Systems Constitutional: Fever Eyes: No Symptoms Ears, Nose, & Throat: No Symptoms Respiratory: Cough, No Dyspnea Cardiac: No Symptoms, No Chest Pain Abdominal/Gastrointestinal: No Symptoms Genitourinary Symptoms: No Symptoms Musculoskeletal: Arthralgias, Myalgias Skin: No No Symptoms Neurological: No Symptoms Psychological: No Symptoms Endocrine: No Symptoms Hematologic/Lymphatic: No Symptoms Immunological/Allergic: No Symptoms All Other Systems: Reviewed and Negative - Past Medical History Pertinent Past Medical History: Yes Neurological History: Seizures ENT History: Cataracts Cardiac History: High Cholesterol, Hypertension, Other Respiratory History: Asthma, Bronchitis, COPD Endocrine Medical History: Diabetes Type II, Other Musculoskeletal History: Arthritis, Osteoarthritis GI Medical History: Diverticulitis, GERD History: No Pertinent History Psycho-Social History: Anxiety, Depression Female Reproductive Disorders: No Pertinent History Other Medical History: 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 LEAKING HEART VALVE - Past Surgical History Past Surgical History: Yes Neuro Surgical History: No Pertinent History Cardiac: Angioplasty, Cardiac Catheterization Respiratory: No Pertinent History Gastrointestinal: Cholecystectomy Genitourinary: No Pertinent History Musculoskeletal: No Pertinent History, Orthopedic Surgery Female Surgical History: Tubal Ligation Other Surgical History: HEART CATH, left rotator cuff in oct 2015. "leaky heart valve"; right thumb surgery - Social History Smoking Status: Former smoker How long have you smoked: 6 YEARS Exposure to second hand smoke: No Alcohol Use: None Drug Use: none Patient Lives Alone: No Significant Family History: no pertinent family hx - Female History Hx Now: No - Nursing Vital Signs Nursing Vital Signs: Initial Vital Signs Temperature 99.2 F 10/27/21 11:14 Pulse Rate 90 10/27/21 11:14 Respiratory Rate 20 10/27/21 11:14 Blood Pressure 179/91 10/27/21 11:14 O2 Sat by Pulse Oximetry 96 10/27/21 11:14 Pain Scale Pain Intensity 7 - Physical Exam General Appearance: no apparent distress, alert, anxiety, obese Eye Exam: PERRL/EOMI, eyes nml inspection Ears, Nose, Throat Exam: normal ENT inspection, moist mucous membranes Neck Exam: normal inspection, non-tender, supple, full range of motion Respiratory Exam: airway intact, wheezing (Mild bilateral), No chest tenderness, No respiratory distress Cardiovascular Exam: regular rate/rhythm, normal heart sounds, normal peripheral pulses Gastrointestinal/Abdomen Exam: soft, normal bowel sounds, No tenderness Pelvic Exam: not done Rectal Exam: not done Back Exam: normal inspection, normal range of motion, No CVA tenderness, No vertebral tenderness Extremity Exam: normal inspection, normal range of motion, pelvis stable Neurologic Exam: alert, oriented x 3, 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, 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, normal mood/affect, nml cerebellar function, nml station & gait, sensation nml Skin Exam: normal color, warm, dry Lymphatic Exam: No adenopathy SpO2 Interpretation: normal SpO2: 96 O2 Delivery: Room Air - Course Nursing assessment & vital signs reviewed: Yes Ordered Tests: Active Orders 24 hr Category Date Time Status CHEST 1 VIEW (PORTABLE) Stat Exams 10/27/21 11:26 Completed INFLUENZA A+B ROSALBA Stat Lab 10/27/21 11:13 Completed Medication Summary Discontinued Medications Generic Name Dose Route Start Last Admin Trade Name Freq PRN Reason Stop Dose Admin Ceftriaxone Sodium 1,000 mg 10/27/21 11:36 10/27/21 11:47 Ceftriaxone Sodium 1000 Mg Inj Vial IM 10/27/21 11:37 1,000 mg STAT ONE Administration Ceftriaxone Sodium Confirm 10/27/21 11:41 Ceftriaxone Sodium 1000 Mg Inj Vial Administered 10/27/21 11:42 Dose 1,000 mg .ROUTE .STK-MED ONE Ceftriaxone Sodium Confirm 10/27/21 11:43 Ceftriaxone Sodium 1000 Mg Inj Vial Administered 10/27/21 11:44 Dose 1,000 mg .ROUTE .STK-MED ONE Methylprednisolone Sodium 0 mg 10/27/21 11:36 10/27/21 11:47 Succinate 125 mg/ Sterile IM 10/27/21 11:37 125 mg Water 2 ml STAT ONE Administration Methylprednisolone Sodium Succinate Confirm 10/27/21 11:45 Methylprednis Sod Succ 125 Mg/2 Ml Vial Administered 10/27/21 11:46 Dose 125 mg .ROUTE .STK-MED ONE Lab/Rad Data: Laboratory Results 10/27/21 10/27/21 Range/Units 11:13 11:13 Influenza Type A Ag NEGATIVE (NEGATIVE) Influenza Type B Ag NEGATIVE (NEGATIVE) Group A Strep Antibody NOT DETECTED (NEGATIVE) - Progress Progress: improved Air Movement: fair Progress Note: 10/27/21 12:03 Chest x-ray shows no acute cardiopulmonary process. Blood Culture(s) Obtained: No Antibiotics given: Yes Counseled pt/family regarding: lab results, diagnosis, need for follow-up, rad results - Departure Departure Disposition: Home Clinical Impression: Upper respiratory infection Condition: Stable Critical Care Time: No Referrals: CAROL ANN ALCARAZ MD [Primary Care Provider] - Follow up/PCP as directed Additional Instructions: Drink plenty of fluids. Take your medication as prescribed. Use your inhalers and nebulizers as prescribed. Follow-up with your primary care physician for persistent symptoms. Prescriptions: Hydrocodone/Acetaminophen [Hydrocodone-Acetamn 7.5-325/15] 10 ml PO Q8H PRN PRN #120 ml MDD 30 ml PRN Reason: Cough Prednisone 10 mg [Deltasone 10 mg] 10 mg PO TID #12 tablet Azithromycin 250 mg [Zithromax 250 MG TABLET] 250 mg PO ZPACK #6 tablet
[2021-10-27] MEDS ORDERED: solu-MEDROL ONE (11:45)
[2021-10-27 11:47] LABS: INFLUENZA A NEGATIVE (NEGATIVE); INFLUENZA B NEGATIVE (NEGATIVE)
--- NOTE | 2021-10-27 11:59 | XRAY ---
Indication: Cough and sore throat. Comparison: November 16, 2020. Portable chest again demonstrates normal heart and lungs. Bony thorax intact again with mild degenerative changes. No new/acute abnormalities.
[2021-10-27 12:30] VITALS: BP 132/107; PULSE 96; O2SAT 95
== END 2021-10-27 12:25 | disposition home or self-care (01) ==
LOC: ED 11:08
DX: J06.9 Acute upper respiratory infection, unspecified (principal); J02.9 Acute pharyngitis, unspecified; M79.10 Myalgia, unspecified site; E11.8 Type 2 diabetes mellitus with unspecified complications; Z79.84 Long term (current) use of oral hypoglycemic drugs; I10 Essential (primary) hypertension; E78.5 Hyperlipidemia, unspecified; J42 Unspecified chronic bronchitis; Z79.891 Long term (current) use of opiate analgesic
CPT/HCPCS: 71045; 87400; 87651; 96372; 99284; U0003; J0696; J2930

== ENCOUNTER 2022-02-10 04:02 | Observation (INO) | payer MEDICARE ==
[2022-02-10] MEDS ORDERED: BABY ASPIRIN 81 MG CHEW PO ONE (04:35)
--- NOTE | 2022-02-10 04:35 | ERPHSYRPT ---
<ISABELLE WITT - Last Filed: 02/10/22 06:48> - History of Present Illness Time Seen by Provider: 02/10/22 04:20 Historian: patient Exam Limitations: no limitations Physician History: This is a 56-year-old obese white female patient of Dr. Alcaraz (PCP) and Dr. Matos (equity sales assistant) who presents with left anterior chest pain with radiation into the left arm described as a pressure. It began yesterday and was intermittent and then earlier this morning it came on fairly suddenly lasted a little longer and has resolved by the time she arrived in the emergency room. Patient denies shortness of breath. She denies abdominal pain. Patient did take 2 nitroglycerin and no aspirin prior to arrival to emergency department. Patient has had a cardiac catheterization in the past with an angioplasty. She has not had any cardiac stents. She has not had open heart surgery. She is not on any anticoagulation therapy. Patient has a history of asthma, COPD, diabetes, gastroesophageal reflux disease, elevated cholesterol and seizure diso rder. Timing/Duration: yesterday Activities at Onset: rest Quality: pressure Location: other (Left anterior chest) Chest Pain Radiation: arm (Left) Severity of Pain-Max: mild (To moderate) Severity of Pain-Current: none Modifying Factors: Improves With: nitroglycerin Associated Symptoms: No nausea, No vomiting, No palpitations, No abdominal pain, No shortness of breath, No fever Prior Chest Pain/Cardiac Workup: cardiac cath Nitro Today/Relief: 0.4 mg x 2, provided at home, complete relief Aspirin Treatment Today: no aspirin today Allergies/Adverse Reactions: morphine Allergy (Intermediate, Verified 02/10/22 04:03) levofloxacin [From Levaquin] Adverse Reaction (Intermediate, Verified 02/10/22 04:03) PT STATES ONE TIME SHE HAD THIS MEDICINE AND HER VEINS ALL TURNED BRIGHT RED Home Medications: Meclizine HCl 25 mg [Antivert 25 mg] 25 mg PO BID 02/21/18 [History] Ropinirole HCl [Requip] 2 mg PO HS 02/21/18 [History] carvediloL [Carvedilol] 6.25 mg PO BID 02/22/18 [History] Fluoxetine HCl 20 mg [Prozac 20 MG] 20 mg PO DAILY 07/15/20 [History] Gabapentin 300 mg PO TID 07/15/20 [History] Glipizide [Glipizide ER] 5 mg PO DAILY 07/15/20 [History] Metformin HCl 500 mg [Glucophage 500 MG] 500 mg PO BID 07/15/20 [History] Prazosin HCl 1 mg PO HS 07/15/20 [History] Omeprazole Magnesium [Prilosec Otc] 20 mg PO BID 07/16/20 [History] Nitroglycerin 0.4 mg Tablet [Nitrostat 0.4 MG Tablet] 0.4 mg SL UD 11/16 [History] Pravastatin Sodium 20 mg PO DAILY 11/16/20 [History] lisinopriL [Lisinopril] 5 mg PO DAILY 02/10/22 [History] modafiniL [Modafinil] 200 mg PO AC 02/10/22 [History] Hx Tetanus, Diphtheria Vaccination/Date Given: Yes Hx Influenza Vaccination/Date Given: No Hx Pneumococcal Vaccination/Date Given: Yes Travel Risk - International Travel Have you traveled outside of the country in past 3 weeks: No - Coronavirus Screening Are you exhibiting any of the following symptoms?: No Close contact with a COVID-19 positive Pt in past 14-21 Days: No - Vaccine Status Have you recieved a Covid-19 vaccination: Yes Yarn Cleaner: Moderna - Vaccination Dates Date of 2cond Vaccination (if applicable): 03/2021 - Review of Systems Constitutional: No Symptoms Eyes: No Symptoms Ears, Nose, & Throat: No Symptoms Respiratory: No Symptoms Cardiac: Chest Pain Abdominal/Gastrointestinal: No Symptoms Genitourinary Symptoms: No Symptoms Musculoskeletal: No Symptoms Skin: No Symptoms Neurological: No Symptoms Psychological: No Symptoms Endocrine: No Symptoms Hematologic/Lymphatic: No Symptoms Immunological/Allergic: No Symptoms All Other Systems: Reviewed and Negative - Past Medical History Pertinent Past Medical History: Yes Neurological History: Seizures ENT History: Cataracts Cardiac History: High Cholesterol, Hypertension, Other Respiratory History: Asthma, Bronchitis, COPD Endocrine Medical History: Diabetes Type II, Other Musculoskeletal History: Arthritis, Osteoarthritis GI Medical History: Diverticulitis, GERD History: No Pertinent History Psycho-Social History: Anxiety, Depression Female Reproductive Disorders: No Pertinent History Other Medical History: 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 LEAKING HEART VALVE - Past Surgical History Past Surgical History: Yes Neuro Surgical History: No Pertinent History Cardiac: Angioplasty, Cardiac Catheterization Respiratory: No Pertinent History Gastrointestinal: Cholecystectomy Genitourinary: No Pertinent History Musculoskeletal: No Pertinent History, Orthopedic Surgery Female Surgical History: Tubal Ligation Other Surgical History: HEART CATH, left rotator cuff in oct 2015. "leaky heart valve"; right thumb surgery - Social History Smoking Status: Former smoker How long have you smoked: 6 YEARS Exposure to second hand smoke: No Alcohol Use: None Drug Use: none Patient Lives Alone: No Significant Family History: no pertinent family hx - Physical Exam General Appearance: no apparent distress, alert, anxiety, obese Eye Exam: PERRL/EOMI, eyes nml inspection Ears, Nose, Throat Exam: normal ENT inspection, moist mucous membranes Neck Exam: normal inspection, non-tender, supple, full range of motion Respiratory Exam: normal breath sounds, chest tenderness (Now resolved at the time of this examination), lungs clear, airway intact, No respiratory distress Cardiovascular Exam: regular rate/rhythm, normal heart sounds, normal peripheral pulses Gastrointestinal/Abdomen Exam: soft, normal bowel sounds, No tenderness Pelvic Exam: not done Rectal Exam: not done Back Exam: normal inspection, normal range of motion, No CVA tenderness, No vertebral tenderness Extremity Exam: normal inspection, normal range of motion, pelvis stable Neurologic Exam: alert, oriented x 3, cooperative, board mixer tender II-XII nml as tested, normal mood/affect, nml cerebellar function, nml station & gait Skin Exam: normal color, warm, dry Lymphatic Exam: No adenopathy SpO2 Interpretation: normal O2 Delivery: Room Air - Course Nursing assessment & vital signs reviewed: Yes EKG Interpreted by Me: RATE (88), Sinus Rhythm, NORMAL AXIS, NORMAL INTERVALS, NORMAL QRS, Non-specific ST Changes (Inferior leads), Other (No acute ischemia on today's EKG. When compared to EKG dated 11/16/2020, there are new nonspecific T wave abnormalities in the inferior leads.) - Progress Progress: improved, re-examined Air Movement: good Progress Note: 02/10/22 05:19 Chest x-ray shows borderline cardiomegaly. There is no acute cardiopulmonary process. 02/10/22 06:48 Patient care being transferred to Dr. Mccall at shift change. He will follow up on the CT of the chest and make final disposition. Blood Culture(s) Obtained: No Antibiotics given: No Counseled pt/family regarding: lab results, diagnosis, need for follow-up, rad results - Departure Departure Disposition: Home Clinical Impression: Chest pain, Fatty liver, Arthritis of spine, Acute coronary syndrome Condition: Stable Critical Care Time: No Referrals: CAROL ANN ALCARAZ MD [Primary Care Provider] - Follow up/PCP as directed <BEVERLY MCCALL - Last Filed: 02/10/22 10:11> - Nursing Vital Signs Nursing Vital Signs: Initial Vital Signs Temperature 98.2 F 02/10/22 04:02 Pulse Rate 88 02/10/22 04:02 Respiratory Rate 18 02/10/22 04:02 Blood Pressure 148/80 02/10/22 04:02 O2 Sat by Pulse Oximetry 97 02/10/22 04:02 Pain Scale Pain Intensity 2 - Radiology Exams Chest X-ray Interpretation: Teleradiologist Report (Normal heart lungs bony thorax. Spine arthritis observed.) - CT Exams Chest CT Interpretation: Tele-radiologist Report (D-dimer positive. CTA chest negative for PE. CT scan observed a fatty liver and chronic bony findings/degenerative changes along the spine.) Ordered Tests: Active Orders 24 hr Category Date Time Status Executive Coordinator STAT Care 02/10/22 04:36 Active EKG-ER Only STAT Care 02/10/22 04:35 Active IV Insertion STAT Care 02/10/22 04:35 Active Pulse Oximetry (ED) STAT Care 02/10/22 04:35 Active CHEST 1 VIEW (PORTABLE) Stat Exams 02/10/22 04:43 Completed CHEST WITH CONTRAST [CT] Stat Exams 02/10/22 06:26 Completed CBC W DIFF Stat Lab 02/10/22 04:41 Completed CMP Stat Lab 02/10/22 04:41 Completed D-DIMER QUANTITATIVE Stat Lab 02/10/22 04:30 Completed NT PRO BNP Stat Lab 02/10/22 04:41 Completed PROTIME WITH INR Stat Lab 02/10/22 04:41 Completed TROPONIN Q3H Lab 02/10/22 04:41 Completed TROPONIN Q3H Lab 02/10/22 07:10 Completed TROPONIN Q3H Lab 02/10/22 10:45 Ordered TROPONIN Q3H Lab 02/10/22 13:45 Ordered TROPONIN Q3H Lab 02/10/22 16:45 Ordered Transfer Order Routine Transfer 02/10/22 Ordered Medication Summary Discontinued Medications Generic Name Dose Route Start Last Admin Trade Name Curry PRN Reason Stop Dose Admin Aspirin 324 mg 02/10/22 04:35 02/10/22 04:44 Aspirin 81 Mg Tab.Chew PO 02/10/22 04:36 324 mg STAT ONE Administration Aspirin Confirm 02/10/22 04:43 Aspirin 81 Mg Tab.Chew Administered 02/10/22 04:44 Dose 324 mg .ROUTE .STK-MED ONE Sodium Chloride 500 mls @ 500 mls/hr 02/10/22 05:57 02/10/22 07:38 Sodium Chloride 0.9% 500 Ml IV 02/10/22 06:56 Infused .Q1H ONE Infusion Sodium Chloride Confirm 02/10/22 06:33 Sodium Chloride 0.9% 500 Ml Administered 02/10/22 06:34 Dose 500 mls @ ud IV .STK-MED ONE Lab/Rad Data: Laboratory Result Diagrams 02/10/22 04:41 02/10/22 04:41 Laboratory Results 02/10/22 02/10/22 02/10/22 Range/Units 08:53 07:10 04:41 WBC (4.0-10.5) K/mm3 RBC (4.1-5.4) M/mm3 Hgb (12.0-16.0) gm/dl Hct (35-47) % MCV (78-100) fl MCH (26-32) pg MCHC (32-36) g/dl RDW (11.5-14.0) % Plt Count (150-450) K/mm3 MPV (7.5-11.0) fl Gran % (36.0-66.0) % Eos # (Auto) (0-0.5) Absolute Lymphs (auto) (1.0-4.6) Absolute Monos (auto) (0.0-1.3) Lymphocytes % (24.0-44.0) % Monocytes % (0.0-12.0) % Eosinophils % (0.00-5.0) % Basophils % (0.0-0.4) % Absolute Granulocytes (1.4-6.9) Basophils # (0-0.4) PT (9.4-12.5) SECONDS INR (0.8-3.0) D-Dimer (215-500) ng/mL Sodium (137-145) mmol/L Potassium (3.5-5.1) mmol/L Chloride (98-107) mmol/L Carbon Dioxide (22-30) mmol/L Anion Gap (5-15) MEQ/L BUN (7-17) mg/dL Creatinine (0.52-1.04) mg/dL Estimated GFR ML/MIN Glucose (74-106) mg/dL Calcium (8.4-10.2) mg/dL Total Bilirubin (0.2-1.3) mg/dL AST (14-36) U/L ALT (0-35) U/L Alkaline Phosphatase (38-126) U/L Troponin I < 0.012 < 0.012 (0.000-0.034) ng/mL NT-Pro-B Natriuret Pep (0-900) pg/mL Serum Total Protein (6.3-8.2) g/dL Albumin (3.5-5.0) g/dL Influenza Type A Ag NEGATIVE (NEGATIVE) Influenza Type B Ag NEGATIVE (NEGATIVE) RSV (PCR) NEGATIVE (Negative) SARS-CoV-2 (PCR) NEGATIVE (NEGATIVE) 02/10/22 02/10/22 02/10/22 Range/Units 04:41 04:41 04:41 WBC 7.0 (4.0-10.5) K/mm3 RBC 4.20 (4.1-5.4) M/mm3 Hgb 12.7 (12.0-16.0) gm/dl Hct 38.9 (35-47) % MCV 92.6 (78-100) fl MCH 30.2 (26-32) pg MCHC 32.6 (32-36) g/dl RDW 12.2 (11.5-14.0) % Plt Count 226 (150-450) K/mm3 MPV 11.1 H (7.5-11.0) fl Gran % 40.0 (36.0-66.0) % Eos # (Auto) 0.29 (0-0.5) Absolute Lymphs (auto) 3.03 (1.0-4.6) Absolute Monos (auto) 0.86 (0.0-1.3) Lymphocytes % 43.3 (24.0-44.0) % Monocytes % 12.3 H (0.0-12.0) % Eosinophils % 4.1 (0.00-5.0) % Basophils % 0.3 (0.0-0.4) % Absolute Granulocytes 2.79 (1.4-6.9) Basophils # 0.02 (0-0.4) PT 11.2 (9.4-12.5) SECONDS INR 0.95 (0.8-3.0) D-Dimer (215-500) ng/mL Sodium 134 L (137-145) mmol/L Potassium 4.4 (3.5-5.1) mmol/L Chloride 102 (98-107) mmol/L Carbon Dioxide 24 (22-30) mmol/L Anion Gap 12.6 (5-15) MEQ/L BUN 11 (7-17) mg/dL Creatinine 0.78 (0.52-1.04) mg/dL Estimated GFR > 60.0 ML/MIN Glucose 177 H (74-106) mg/dL Calcium 9.0 (8.4-10.2) mg/dL Total Bilirubin 0.40 (0.2-1.3) mg/dL AST 29 (14-36) U/L ALT 33 (0-35) U/L Alkaline Phosphatase 97 (38-126) U/L Troponin I (0.000-0.034) ng/mL NT-Pro-B Natriuret Pep 48.0 (0-900) pg/mL Serum Total Protein 6.7 (6.3-8.2) g/dL Albumin 3.9 (3.5-5.0) g/dL Influenza Type A Ag (NEGATIVE) Influenza Type B Ag (NEGATIVE) RSV (PCR) (Negative) SARS-CoV-2 (PCR) (NEGATIVE) 02/10/22 Range/Units 04:30 WBC (4.0-10.5) K/mm3 RBC (4.1-5.4) M/mm3 Hgb (12.0-16.0) gm/dl Hct (35-47) % MCV (78-100) fl MCH (26-32) pg MCHC (32-36) g/dl RDW (11.5-14.0) % Plt Count (150-450) K/mm3 MPV (7.5-11.0) fl Gran % (36.0-66.0) % Eos # (Auto) (0-0.5) Absolute Lymphs (auto) (1.0-4.6) Absolute Monos (auto) (0.0-1.3) Lymphocytes % (24.0-44.0) % Monocytes % (0.0-12.0) % Eosinophils % (0.00-5.0) % Basophils % (0.0-0.4) % Absolute Granulocytes (1.4-6.9) Basophils # (0-0.4) PT (9.4-12.5) SECONDS INR (0.8-3.0) D-Dimer 729 H* (215-500) ng/mL Sodium (137-145) mmol/L Potassium (3.5-5.1) mmol/L Chloride (98-107) mmol/L Carbon Dioxide (22-30) mmol/L Anion Gap (5-15) MEQ/L BUN (7-17) mg/dL Creatinine (0.52-1.04) mg/dL Estimated GFR ML/MIN Glucose (74-106) mg/dL Calcium (8.4-10.2) mg/dL Total Bilirubin (0.2-1.3) mg/dL AST (14-36) U/L ALT (0-35) U/L Alkaline Phosphatase (38-126) U/L Troponin I (0.000-0.034) ng/mL NT-Pro-B Natriuret Pep (0-900) pg/mL Serum Total Protein (6.3-8.2) g/dL Albumin (3.5-5.0) g/dL Influenza Type A Ag (NEGATIVE) Influenza Type B Ag (NEGATIVE) RSV (PCR) (Negative) SARS-CoV-2 (PCR) (NEGATIVE) - Progress Progress Note: Patient endorsed Dr. Mccall at approximately [address] Mccall evaluated patient at bedside. Patient is a diabetic. Patient's chest pain is primarily left chest with referral pattern into the left shoulder and arm. Pain associated with nausea and diaphoresis. Initial troponin negative. In light of her symptoms and cardiac risk factors patient advised admission for further evaluation and treatment. Case discussed with Dr. Alcaraz who accepts admission to observation. Covid test negative. Plan of care discussed with patient. She agrees to admission at [facility] for further evaluation and treatment. Portions of this note were created with voice recognition technology. There may be grammatical, spelling, punctuation or sound alike errors 02/10/22 10:06 Discussed with : Dao Will see patient in: hospital (observation)
[2022-02-10] MEDS ORDERED: BABY ASPIRIN 81 MG CHEW ONE (04:43)
[2022-02-10 04:46] LABS: Absolute Neutrophil Ct (ANC) 2.79 (1.4-6.9); Basophil (Absolute #) 0.02 (0-0.4); Eosinophil % 4.1 % (0.00-5.0); Eosinophil (Absolute #) 0.29 (0-0.5); Hematocrit 38.9 % (35-47); Hemoglobin 12.7 gm/dl (12.0-16.0); INR 0.95 (0.8-3.0); Lymphocyte (Absolute #) 3.03 (1.0-4.6); Lymphocytes % 43.3 % (24.0-44.0); Mean Cell Volume 92.6 fl (78-100); Mean Corpuscular Hemoglobin 30.2 pg (26-32); Mean Corpuscular Hgb Concent. 32.6 g/dl (32-36); Mean Platelet Volume 11.1 fl (7.5-11.0); Monocyte (Absolute #) 0.86 (0.0-1.3); Monocytes % 12.3 % (0.0-12.0); PROTIME 11.2 SECONDS (9.4-12.5); Platelet Count 226 K/mm3 (150-450); Red Cell Distribution Width 12.2 % (11.5-14.0)
[2022-02-10 04:59] LABS: ALBUMIN 3.9 g/dL (3.5-5.0); ALKALINE PHOSPHATASE 97 U/L (38-126); ANION GAP 12.6 MEQ/L (5-15); BLOOD UREA NITROGEN 11 mg/dL (7-17); CHLORIDE 102 mmol/L (98-107); Carbon Dioxide 24 mmol/L (22-30); Creatinine 1 0.78 mg/dL (0.52-1.04); EST GLOMERULAR FILTRATION RATE > 60.0 ML/MIN; Glucose 177 mg/dL (74-106); Potassium 4.4 mmol/L (3.5-5.1); SGOT/AST 29 U/L (14-36); SGPT/ALT 33 U/L (0-35); SODIUM 134 mmol/L (137-145); Total Protein 6.7 g/dL (6.3-8.2)
[2022-02-10] MEDS ORDERED: Sodium Chloride 0.9% 500 ML 500 ML IV ONE ×2 (05:57→06:33)
--- NOTE | 2022-02-10 08:37 | XRAY ---
Indication: Chest pain and short of breath. Elevated d-dimer. Multiple contiguous axial images obtained through the chest using 100 cc Isovue 370 contrast and PE protocol. Comparison: September 01, 2020. There is suboptimal opacification of the pulmonary arteries limiting evaluation for pulmonary embolus. No obvious central pulmonary embolus. Heart not enlarged. Aorta is normal in course and caliber. No pathologic mediastinal/hilar lymphadenopathy. Lungs inflated and remain clear. Bony thorax intact again with mild degenerative changes throughout the spine. Limited upper abdomen again demonstrates diffuse fatty liver with cholecystectomy clips. Impression: 1. Pulmonary embolus evaluation limited due to suboptimal contrast opacification. No obvious pulmonary embolus. 2. Again fatty liver and chronic bony findings. 3. Remaining CT chest with contrast exam is negative.
--- NOTE | 2022-02-10 08:38 | XRAY ---
Indication: Chest pain and cough 1 week. Comparison: October 27, 2021. Portable chest again demonstrates normal heart and lungs. Bony thorax intact again with mild degenerative changes. No new/acute findings.
[2022-02-10 09:31] LABS: INFLUENZA A NEGATIVE (NEGATIVE); INFLUENZA B NEGATIVE (NEGATIVE); RESPIRATORY SYNCTIAL VIRUS NEGATIVE (Negative); SARS-CoV-2 Xpert Express NEGATIVE (NEGATIVE)
[2022-02-10] MEDS ORDERED: MILK OF MAGNESIA 30 ML PO PRN (10:02)
[2022-02-10] MEDS ORDERED: MAALOX ES 30 ML UNIT DOSE PO PRN (10:02)
[2022-02-10] MEDS ORDERED: Senokot-S Tablet PO PRN (10:02)
[2022-02-10] MEDS ORDERED: Zofran 4 MG/2 ML VIAL IV PRN (10:05)
[2022-02-10] MEDS: SUBLIMAZE 100 MCG/2 ML IV PRN ×3 (10:26→18:11)
[2022-02-10] MEDS ORDERED: HUMALOG SQ PRN (10:39)
[2022-02-10] MEDS ORDERED: DUONEB 0.5-3 MG/3 ml Neb IH PRN (12:34)
[2022-02-10] MEDS ORDERED: Nitrostat 0.4 MG Tablet SL PRN (12:45)
[2022-02-10] MEDS: Protonix 40MG Tablet PO SCH (12:52)
[2022-02-10] MEDS: Coreg 6.25 MG PO SCH ×2 (12:52→21:30)
[2022-02-10] MEDS: Zestril 5 MG PO SCH (12:52)
[2022-02-10] MEDS: ECOTRIN 81 MG PO SCH (12:52)
[2022-02-10] MEDS: ANTIVERT 25 MG PO SCH ×2 (12:52→21:30)
[2022-02-10] MEDS: Prozac 20 MG PO SCH (12:52)
[2022-02-10] MEDS: Glucotrol Xl 2.5 MG PO SCH (14:19)
[2022-02-10] MEDS: NEURONTIN 300 MG PO SCH ×2 (14:19→21:31)
[2022-02-10] MEDS: Glucophage 500 MG PO SCH ×2 (16:25→16:29)
[2022-02-10] MEDS: Reglan 10 MG PO SCH ×2 (16:25→21:30)
[2022-02-10] MEDS: TYLENOL 325 MG PO PRN (17:50)
[2022-02-10] MEDS: Advair Hfa 115/21 Common canister IH SCH (18:30)
--- NOTE | 2022-02-10 18:40 | PCM.HP ---
History of Present Illness - Chief Complaint Chief Complaint: chest pain for 1 day History of Present Illness: is a 56 year old female.presents with left anterior chest pain with radiation into the left arm described as a pressure. It began yesterday and was intermittent and then earlier this morning it came on fairly suddenly lasted a little longer and has resolved by the time she arrived in the emergency room. Patient denies shortness of breath. She denies abdominal pain. Patient did take 2 nitroglycerin and no aspirin prior to arrival to emergency department. Patient has had a cardiac catheterization in the past with an angioplasty. She has not had any cardiac stents. She has not had open heart surgery. She is not on any anticoagulation therapy. Patient has a history of asthma, COPD, diabetes, gastroesophageal reflux disease, elevated cholesterol and seizure di sorder. Timing/Duration: yesterday Activities at Onset: rest Quality: pressure Location: other (Left anterior chest) Chest Pain Radiation: arm (Left) Severity of Pain-Max: mild (To moderate) Severity of Pain-Current: none Modifying Factors: Improves With: nitroglycerin Associated Symptoms: No nausea, No vomiting, No palpitations, No abdominal pain, No shortness of breath, No fever Prior Chest Pain/Cardiac Workup: cardiac cath Nitro Today/Relief: 0.4 mg x 2, provided at home, complete relief Aspirin Treatment Today: no aspirin today - Review of Systems Constitutional: No Fever, No Chills Eyes: No Symptoms Ears, Nose, & Throat: No Symptoms Respiratory: No Cough, No Short Of Breath Cardiac: Chest Pain, No Edema, No Syncope Abdominal/Gastrointestinal: No Abdominal Pain, No Nausea, No Vomiting, No Diarrhea Genitourinary Symptoms: No Dysuria Musculoskeletal: No Back Pain, No Neck Pain Skin: No Rash Neurological: No Dizziness, No Focal Weakness, No Sensory Changes Psychological: No Symptoms Endocrine: No Symptoms Hematologic/Lymphatic: No Symptoms Immunological/Allergic: No Symptoms Medications & Allergies Home Medications: Home Medication List Meclizine HCl 25 mg [Antivert 25 mg] 25 mg PO BID 02/21/18 [History Confirmed 02/10/22] Ropinirole HCl [Requip] 2 mg PO HS 02/21/18 [History Confirmed 02/10/22] carvediloL [Carvedilol] 6.25 mg PO BID 02/22/18 [History Confirmed 02/10/22] Albuterol/Ipratropium 3ml Neb* [DUONEB 0.5-3 MG/3 ml Neb] 3 ml NEBULIZE Q4H PRN PRN #1 box 09/16/19 [Rx Confirmed 02/10/22] Fluoxetine HCl 20 mg [Prozac 20 MG] 20 mg PO DAILY 07/15/20 [History Confirmed 02/10/22] Gabapentin 300 mg PO TID 07/15/20 [History Confirmed 02/10/22] Glipizide [Glipizide ER] 5 mg PO DAILY 07/15/20 [History Confirmed 02/10/22] Metformin HCl 500 mg [Glucophage 500 MG] 500 mg PO BID 07/15/20 [History Confirmed 02/10/22] Omeprazole Magnesium [Prilosec Otc] 20 mg PO BID 07/16/20 [History Confirmed 02/10/22] Aspirin EC 81 mg [Ecotrin 81 mg] 81 mg PO DAILY #100 tablet.ec 07/17/20 [Rx Confirmed 02/10/22] Nitroglycerin 0.4 mg Tablet [Nitrostat 0.4 MG Tablet] 0.4 mg SL UD 11/16/20 [History Confirmed 02/10/22] Pravastatin Sodium 20 mg PO HS 11/16/20 [History Confirmed 02/10/22] Fluticasone/Umeclidin/Vilanter [Trelegy Ellipta 200-62.5-25] 1 each IH DAILY 02/10/22 [History Confirmed 02/10/22] Non-Formulary Drug [Non-Formulary Item] 5 mg PO ACHS 02/10/22 [History Confirmed 02/10/22] lisinopriL [Lisinopril] 5 mg PO DAILY 02/10/22 [History Confirmed 02/10/22] modafiniL [Modafinil] 200 mg PO DAILY 02/10/22 [History Confirmed 02/10/22] Allergies/Adverse Reactions: Allergies Allergy/AdvReac Type Severity Reaction Status Date / Time morphine Allergy Intermediate Verified 02/10/22 04:03 levofloxacin [From Levaquin] AdvReac Intermediate Verified 02/10/22 04:03 - Past Medical History Past Medical History: Yes Neurological History: Seizures ENT History: Cataracts Cardiac History: High Cholesterol, Hypertension, Other Respiratory History: Asthma, Bronchitis, COPD Endocrine Medical History: Diabetes Type II, Other Musculoskelatal History: Arthritis, Osteoarthritis GI Medical History: Diverticulitis, GERD History: No Pertinent History Pyscho-Social History: Anxiety, Depression Reproductive Disorders: No Pertinent History Comment: 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 LEAKING HEART VALVE - Female History Are you now?: No - Past Surgical History Past Surgical History: Yes Neuro Surgical History: No Pertinent History Cardiac History: Angioplasty, Cardiac Catheterization Respiratory Surgery: No Pertinent History GI Surgical History: Cholecystectomy Genitourinary Surgical Hx: No Pertinent History Musculskeletal Surgical Hx: No Pertinent History, Orthopedic Surgery Female Surgical History: Tubal Ligation Other Surgical History: HEART CATH, left rotator cuff in oct 2015. "leaky heart valve"; right thumb surgery - Social History Smoking Status: Never smoker How long have you smoked: 6 YEARS Exposure to second hand smoke: No Alcohol: Occasionally Drug Use: none Significant Family History: no pertinent family hx - Physical Exam Vital Signs: Vital Signs - 24 hr Temp Pulse Pulse Resp BP Pulse Ox 02/10/22 18:31 96 H 18 94 L 02/10/22 16:00 98.2 F 85 18 118/60 91 L 02/10/22 14:06 88 18 93 L 02/10/22 14:05 93 L 02/10/22 10:33 97.5 F 87 18 124/78 93 L 02/10/22 09:56 92 H 18 127/80 93 L 02/10/22 07:10 84 18 110/77 98 02/10/22 06:48 92 H 17 126/74 95 02/10/22 05:02 79 18 111/69 98 02/10/22 04:46 97 H 15 148/80 97 02/10/22 04:35 98 02/10/22 04:02 98.2 F 88 80 18 148/80 97 General Appearance: no apparent distress, alert Neurologic Exam: alert, oriented x 3, cooperative, normal mood/affect, nml cerebellar function, nml station & gait, sensation nml, No motor deficits Eye Exam: PERRL/EOMI, eyes nml inspection Ears, Nose, Throat Exam: normal ENT inspection, TMs normal, pharynx normal, moist mucous membranes Neck Exam: normal inspection, non-tender, supple, full range of motion Respiratory Exam: normal breath sounds, lungs clear, No respiratory distress Cardiovascular Exam: regular rate/rhythm, normal heart sounds, normal peripheral pulses Gastrointestinal/Abdomen Exam: soft, normal bowel sounds, No tenderness, No mass Back Exam: normal inspection, normal range of motion, No CVA tenderness, No vertebral tenderness Extremity Exam: normal inspection, normal range of motion, pelvis stable Skin Exam: normal color, warm, dry, No rash Lymphatic Exam: No adenopathy Results - Labs Lab/Micro Results: Lab Results-Last 24 Hours 02/10/22 02/10/22 02/10/22 Range/Units 04:30 04:41 04:41 WBC 7.0 (4.0-10.5) K/mm3 RBC 4.20 (4.1-5.4) M/mm3 Hgb 12.7 (12.0-16.0) gm/dl Hct 38.9 (35-47) % MCV 92.6 (78-100) fl MCH 30.2 (26-32) pg MCHC 32.6 (32-36) g/dl RDW 12.2 (11.5-14.0) % Plt Count 226 (150-450) K/mm3 MPV 11.1 H (7.5-11.0) fl Gran % 40.0 (36.0-66.0) % Eos # (Auto) 0.29 (0-0.5) Absolute Lymphs (auto) 3.03 (1.0-4.6) Absolute Monos (auto) 0.86 (0.0-1.3) Lymphocytes % 43.3 (24.0-44.0) % Monocytes % 12.3 H (0.0-12.0) % Eosinophils % 4.1 (0.00-5.0) % Basophils % 0.3 (0.0-0.4) % Absolute Granulocytes 2.79 (1.4-6.9) Basophils # 0.02 (0-0.4) PT (9.4-12.5) SECONDS INR (0.8-3.0) D-Dimer 729 H* (215-500) ng/mL Sodium 134 L (137-145) mmol/L Potassium 4.4 (3.5-5.1) mmol/L Chloride 102 (98-107) mmol/L Carbon Dioxide 24 (22-30) mmol/L Anion Gap 12.6 (5-15) MEQ/L BUN 11 (7-17) mg/dL Creatinine 0.78 (0.52-1.04) mg/dL Estimated GFR > 60.0 ML/MIN Glucose 177 H (74-106) mg/dL POC Glucometer (74 to 106) mg/dL Hemoglobin A1c (4.5-6.0) % Calcium 9.0 (8.4-10.2) mg/dL Total Bilirubin 0.40 (0.2-1.3) mg/dL AST 29 (14-36) U/L ALT 33 (0-35) U/L Alkaline Phosphatase 97 (38-126) U/L Troponin I (0.000-0.034) ng/mL NT-Pro-B Natriuret Pep 48.0 (0-900) pg/mL Serum Total Protein 6.7 (6.3-8.2) g/dL Albumin 3.9 (3.5-5.0) g/dL Influenza Type A Ag (NEGATIVE) Influenza Type B Ag (NEGATIVE) RSV (PCR) (Negative) SARS-CoV-2 (PCR) (NEGATIVE) 02/10/22 02/10/22 02/10/22 Range/Units 04:41 04:41 07:10 WBC (4.0-10.5) K/mm3 RBC (4.1-5.4) M/mm3 Hgb (12.0-16.0) gm/dl Hct (35-47) % MCV (78-100) fl MCH (26-32) pg MCHC (32-36) g/dl RDW (11.5-14.0) % Plt Count (150-450) K/mm3 MPV (7.5-11.0) fl Gran % (36.0-66.0) % Eos # (Auto) (0-0.5) Absolute Lymphs (auto) (1.0-4.6) Absolute Monos (auto) (0.0-1.3) Lymphocytes % (24.0-44.0) % Monocytes % (0.0-12.0) % Eosinophils % (0.00-5.0) % Basophils % (0.0-0.4) % Absolute Granulocytes (1.4-6.9) Basophils # (0-0.4) PT 11.2 (9.4-12.5) SECONDS INR 0.95 (0.8-3.0) D-Dimer (215-500) ng/mL Sodium (137-145) mmol/L Potassium (3.5-5.1) mmol/L Chloride (98-107) mmol/L Carbon Dioxide (22-30) mmol/L Anion Gap (5-15) MEQ/L BUN (7-17) mg/dL Creatinine (0.52-1.04) mg/dL Estimated GFR ML/MIN Glucose (74-106) mg/dL POC Glucometer (74 to 106) mg/dL Hemoglobin A1c (4.5-6.0) % Calcium (8.4-10.2) mg/dL Total Bilirubin (0.2-1.3) mg/dL AST (14-36) U/L ALT (0-35) U/L Alkaline Phosphatase (38-126) U/L Troponin I < 0.012 < 0.012 (0.000-0.034) ng/mL NT-Pro-B Natriuret Pep (0-900) pg/mL Serum Total Protein (6.3-8.2) g/dL Albumin (3.5-5.0) g/dL Influenza Type A Ag (NEGATIVE) Influenza Type B Ag (NEGATIVE) RSV (PCR) (Negative) SARS-CoV-2 (PCR) (NEGATIVE) 02/10/22 02/10/22 02/10/22 Range/Units 08:53 10:00 10:17 WBC (4.0-10.5) K/mm3 RBC (4.1-5.4) M/mm3 Hgb (12.0-16.0) gm/dl Hct (35-47) % MCV (78-100) fl MCH (26-32) pg MCHC (32-36) g/dl RDW (11.5-14.0) % Plt Count (150-450) K/mm3 MPV (7.5-11.0) fl Gran % (36.0-66.0) % Eos # (Auto) (0-0.5) Absolute Lymphs (auto) (1.0-4.6) Absolute Monos (auto) (0.0-1.3) Lymphocytes % (24.0-44.0) % Monocytes % (0.0-12.0) % Eosinophils % (0.00-5.0) % Basophils % (0.0-0.4) % Absolute Granulocytes (1.4-6.9) Basophils # (0-0.4) PT (9.4-12.5) SECONDS INR (0.8-3.0) D-Dimer (215-500) ng/mL Sodium (137-145) mmol/L Potassium (3.5-5.1) mmol/L Chloride (98-107) mmol/L Carbon Dioxide (22-30) mmol/L Anion Gap (5-15) MEQ/L BUN (7-17) mg/dL Creatinine (0.52-1.04) mg/dL Estimated GFR ML/MIN Glucose (74-106) mg/dL POC Glucometer (74 to 106) mg/dL Hemoglobin A1c 7.50 H (4.5-6.0) % Calcium (8.4-10.2) mg/dL Total Bilirubin (0.2-1.3) mg/dL AST (14-36) U/L ALT (0-35) U/L Alkaline Phosphatase (38-126) U/L Troponin I < 0.012 (0.000-0.034) ng/mL NT-Pro-B Natriuret Pep (0-900) pg/mL Serum Total Protein (6.3-8.2) g/dL Albumin (3.5-5.0) g/dL Influenza Type A Ag NEGATIVE (NEGATIVE) Influenza Type B Ag NEGATIVE (NEGATIVE) RSV (PCR) NEGATIVE (Negative) SARS-CoV-2 (PCR) NEGATIVE (NEGATIVE) 02/10/22 02/10/22 02/10/22 Range/Units 11:41 13:47 15:31 WBC (4.0-10.5) K/mm3 RBC (4.1-5.4) M/mm3 Hgb (12.0-16.0) gm/dl Hct (35-47) % MCV (78-100) fl MCH (26-32) pg MCHC (32-36) g/dl RDW (11.5-14.0) % Plt Count (150-450) K/mm3 MPV (7.5-11.0) fl Gran % (36.0-66.0) % Eos # (Auto) (0-0.5) Absolute Lymphs (auto) (1.0-4.6) Absolute Monos (auto) (0.0-1.3) Lymphocytes % (24.0-44.0) % Monocytes % (0.0-12.0) % Eosinophils % (0.00-5.0) % Basophils % (0.0-0.4) % Absolute Granulocytes (1.4-6.9) Basophils # (0-0.4) PT (9.4-12.5) SECONDS INR (0.8-3.0) D-Dimer (215-500) ng/mL Sodium (137-145) mmol/L Potassium (3.5-5.1) mmol/L Chloride (98-107) mmol/L Carbon Dioxide (22-30) mmol/L Anion Gap (5-15) MEQ/L BUN (7-17) mg/dL Creatinine (0.52-1.04) mg/dL Estimated GFR ML/MIN Glucose (74-106) mg/dL POC Glucometer 188 H 174 H (74 to 106) mg/dL Hemoglobin A1c (4.5-6.0) % Calcium (8.4-10.2) mg/dL Total Bilirubin (0.2-1.3) mg/dL AST (14-36) U/L ALT (0-35) U/L Alkaline Phosphatase (38-126) U/L Troponin I < 0.012 (0.000-0.034) ng/mL NT-Pro-B Natriuret Pep (0-900) pg/mL Serum Total Protein (6.3-8.2) g/dL Albumin (3.5-5.0) g/dL Influenza Type A Ag (NEGATIVE) Influenza Type B Ag (NEGATIVE) RSV (PCR) (Negative) SARS-CoV-2 (PCR) (NEGATIVE) Accuchecks Date 02/10/22 Date 02/10/22 Time 15:31 Time 11:41 - Radiology Impressions Radiology Exams & Impressions: Radiology Procedures Category Date Time Status CHEST 1 VIEW (PORTABLE) Stat Exams 02/10/22 04:43 Completed CHEST WITH CONTRAST [CT] Stat Exams 02/10/22 06:26 Completed ECHO W/2D AND DOPPLER [US] Routine Exams 02/10/22 14:04 Taken - Other Procedures and Tests Respiratory Therapy 02/11/22 05:00 EKG ONCE 02/11/22 07:00 Respiratory Therapy Assessment DAILY 02/12/22 05:00 EKG ONCE 02/13/22 05:00 EKG ONCE Assessment/Plan (1) Acute coronary syndrome Current Visit: Yes Status: Acute Assessment & Plan: Chief Complaint Diagnosis chest pain Allergies Allergy/AdvReac Type Severity Reaction Status Date / Time morphine Allergy Intermediate Verified 02/10/22 04:03 levofloxacin [From Levaquin] AdvReac Intermediate Verified 02/10/22 04:03 Vital Signs (Last 24 hours) Temp Pulse Pulse Resp BP Pulse Ox 02/10/22 18:31 96 H 18 94 L 02/10/22 16:00 98.2 F 85 18 118/60 91 L 02/10/22 14:06 88 18 93 L 02/10/22 14:05 93 L 02/10/22 10:33 97.5 F 87 18 124/78 93 L 02/10/22 09:56 92 H 18 127/80 93 L 02/10/22 07:10 84 18 110/77 98 02/10/22 06:48 92 H 17 126/74 95 02/10/22 05:02 79 18 111/69 98 02/10/22 04:46 97 H 15 148/80 97 02/10/22 04:35 98 02/10/22 04:02 98.2 F 88 80 18 148/80 97 Home Medications Medication Instructions Recorded Confirmed Last Taken Type Fluticasone/Umeclidin/Vilanter 1 each IH DAILY 02/10/22 02/10/22 02/10/22 History [Trelegy Ellipta 200-62.5-25] Non-Formulary Drug [Non-Formulary 5 mg PO ACHS 02/10/22 02/10/22 02/10/22 History Item] lisinopriL [Lisinopril] 5 mg PO DAILY 02/10/22 02/10/22 Unknown History modafiniL [Modafinil] 200 mg PO DAILY 02/10/22 02/10/22 Unknown History Current Medications Generic Name Dose Route Start Last Admin Trade Name Freq PRN Reason Stop Dose Admin Acetaminophen 650 mg 02/10/22 10:02 02/10/22 17:50 Acetaminophen 325 Mg Tablet PO 03/12/22 10:01 650 mg Q4H PRN PRN Administration PAIN AND/OR FEVER Al Hydrox/Mg Hydrox/Simethicone 30 ml 02/10/22 10:02 Mag Hydrox/Al Hydrox/Simeth 30 Ml Udcup PO 03/12/22 10:01 Q4H PRN PRN INDIGESTION Albuterol/Ipratropium 3 ml 02/10/22 12:34 Ipratropium/Albuterol Sulfate 3 Ml Ampul.Neb IH 03/12/22 12:33 Q4H PRN PRN Wheezing/Chest Congestion Aspirin 81 mg 02/10/22 13:00 02/10/22 12:52 Aspirin 81 Mg Tablet.Ec PO 03/12/22 12:59 81 mg DAILY ARSH Administration Carvedilol 6.25 mg 02/10/22 13:00 02/10/22 12:52 Carvedilol 6.25 Mg Tablet PO 03/12/22 12:59 6.25 mg BID ARSH Administration Fentanyl Citrate 25 mcg 02/10/22 10:05 02/10/22 18:11 Fentanyl Citrate 100 Mcg/2 Ml* Vial IV 02/15/22 10:04 25 mcg Q4H PRN PRN Administration SEVERE PAIN Fluoxetine HCl 20 mg 02/10/22 13:00 02/10/22 12:52 Fluoxetine Hcl 20 Mg Cap PO 03/12/22 12:59 20 mg DAILY ARSH Administration Gabapentin 300 mg 02/10/22 15:00 02/10/22 14:19 Gabapentin 300 Mg Capsule PO 03/12/22 14:59 300 mg TID ARSH Administration Glipizide 5 mg 02/10/22 13:00 02/10/22 14:19 Glipizide 2.5 Mg Xl Tablet PO 03/12/22 12:59 5 mg DAILY ARSH Administration Insulin Human Lispro 0 unit 02/10/22 10:39 Insulin Lispro 1 Unit SQ 03/12/22 10:38 UD PRN HYPERGLYCEMIA Lisinopril 5 mg 02/10/22 13:00 02/10/22 12:52 Lisinopril 5 Mg Tablet PO 03/12/22 12:59 5 mg DAILY ARSH Administration Magnesium Hydroxide 30 - 60 ml 02/10/22 10:02 Magnesium Hydroxide 30 Ml Udcup PO 03/12/22 10:01 QDP PRN CONSTIPATION Meclizine HCl 25 mg 02/10/22 13:00 02/10/22 12:52 Meclizine Hcl 25 Mg Tablet PO 03/12/22 12:59 25 mg BID ARSH Administration Metformin HCl 500 mg 02/10/22 17:00 02/10/22 16:29 Metformin Hcl 500 Mg Tablet PO 03/12/22 16:59 Not Given BIDWM ARSH Metoclopramide HCl 5 mg 02/10/22 16:30 02/10/22 16:25 Metoclopramide Hcl 10 Mg Tablet PO 03/12/22 16:29 5 mg ACHS ARSH Administration Modafinil 200 mg 02/11/22 08:00 Modafinil 100 Mg Tab PO 03/13/22 07:59 BREAKFAST ARSH Nitroglycerin 0.4 mg 02/10/22 12:45 Nitroglycerin 0.4 Mg Tablet Bottle SL 03/12/22 12:44 Q5MIN PRN MR X 3 PRN Ondansetron HCl 4 mg 02/10/22 10:05 02/10/22 10:27 Ondansetron Hcl 4 Mg/2 Ml Vial IV 03/12/22 10:04 4 mg Q4H PRN PRN Administration NAUSEA/VOMITING Pantoprazole Sodium 40 mg 02/10/22 13:00 02/10/22 12:52 Protonix (Pantoprazole) 40 Mg Tablet PO 03/12/22 12:59 40 mg DAILY ARSH Administration Ropinirole HCl 2 mg 02/10/22 22:00 Ropinirole Hcl 2 Mg Tablet PO 03/12/22 21:59 HS ARSH Fluticasone/Salmeterol 2 puff 02/10/22 19:00 02/10/22 18:30 Fluticasone/Salmeterol 115/21 - 120 Puff Common Canister IH 03/12/22 18:59 2 puff BIDRT ARSH Administration Senna/Docusate Sodium 2 udtab 02/10/22 10:02 Senna/Docusate Sodium 1 Udtab Tablet PO 03/12/22 10:01 BID PRN PRN CONSTIPATION Simvastatin 20 mg 02/10/22 22:00 Simvastatin 20 Mg Tablet PO 03/12/22 21:59 HS ARSH Discontinued Medications Generic Name Dose Route Start Last Admin Trade Name Curry PRN Reason Stop Dose Admin Aspirin 324 mg 02/10/22 04:35 02/10/22 04:44 Aspirin 81 Mg Tab.Chew PO 02/10/22 04:36 324 mg STAT ONE Administration Aspirin Confirm 02/10/22 04:43 Aspirin 81 Mg Tab.Chew Administered 02/10/22 04:44 Dose 324 mg .ROUTE .STK-MED ONE Sodium Chloride 500 mls @ 500 mls/hr 02/10/22 05:57 02/10/22 07:38 Sodium Chloride 0.9% 500 Ml IV 02/10/22 06:56 Infused .Q1H ONE Infusion Sodium Chloride Confirm 02/10/22 06:33 Sodium Chloride 0.9% 500 Ml Administered 02/10/22 06:34 Dose 500 mls @ ud IV .STK-MED ONE Non-Formulary Medication 1 each 02/11/22 10:00 Fluticasone/Umeclidin/Vilanter [Trelegy Ellipta 200-62.5-25] IH 03/13/22 09:59 DAILY ARSH Intake & Output (Last 24 hours) 02/08/22 02/09/22 02/10/22 02/11/22 11:59 11:59 11:59 11:59 Intake Total 720 Output Total 600 Balance 120 Weight 120.9 kg Laboratory Results (Last 24 hours) 02/10/22 02/10/22 02/10/22 15:31 13:47 11:41 WBC RBC Hgb Hct MCV MCH MCHC RDW Plt Count MPV Gran % Eos # (Auto) Absolute Lymphs (auto) Absolute Monos (auto) Lymphocytes % Monocytes % Eosinophils % Basophils % Absolute Granulocytes Basophils # PT INR D-Dimer Sodium Potassium Chloride Carbon Dioxide Anion Gap BUN Creatinine Estimated GFR Glucose POC Glucometer 174 H 188 H Hemoglobin A1c Calcium Total Bilirubin AST ALT Alkaline Phosphatase Troponin I < 0.012 NT-Pro-B Natriuret Pep Serum Total Protein Albumin Influenza Type A Ag Influenza Type B Ag RSV (PCR) SARS-CoV-2 (PCR) 02/10/22 02/10/22 02/10/22 10:17 10:00 08:53 WBC RBC Hgb Hct MCV MCH MCHC RDW Plt Count MPV Gran % Eos # (Auto) Absolute Lymphs (auto) Absolute Monos (auto) Lymphocytes % Monocytes % Eosinophils % Basophils % Absolute Granulocytes Basophils # PT INR D-Dimer Sodium Potassium Chloride Carbon Dioxide Anion Gap BUN Creatinine Estimated GFR Glucose POC Glucometer Hemoglobin A1c 7.50 H Calcium Total Bilirubin AST ALT Alkaline Phosphatase Troponin I < 0.012 NT-Pro-B Natriuret Pep Serum Total Protein Albumin Influenza Type A Ag NEGATIVE Influenza Type B Ag NEGATIVE RSV (PCR) NEGATIVE SARS-CoV-2 (PCR) NEGATIVE 02/10/22 02/10/22 02/10/22 07:10 04:41 04:41 WBC RBC Hgb Hct MCV MCH MCHC RDW Plt Count MPV Gran % Eos # (Auto) Absolute Lymphs (auto) Absolute Monos (auto) Lymphocytes % Monocytes % Eosinophils % Basophils % Absolute Granulocytes Basophils # PT 11.2 INR 0.95 D-Dimer Sodium Potassium Chloride Carbon Dioxide Anion Gap BUN Creatinine Estimated GFR Glucose POC Glucometer Hemoglobin A1c Calcium Total Bilirubin AST ALT Alkaline Phosphatase Troponin I < 0.012 < 0.012 NT-Pro-B Natriuret Pep Serum Total Protein Albumin Influenza Type A Ag Influenza Type B Ag RSV (PCR) SARS-CoV-2 (PCR) 02/10/22 02/10/22 02/10/22 04:41 04:41 04:30 WBC 7.0 RBC 4.20 Hgb 12.7 Hct 38.9 MCV 92.6 MCH 30.2 MCHC 32.6 RDW 12.2 Plt Count 226 MPV 11.1 H Gran % 40.0 Eos # (Auto) 0.29 Absolute Lymphs (auto) 3.03 Absolute Monos (auto) 0.86 Lymphocytes % 43.3 Monocytes % 12.3 H Eosinophils % 4.1 Basophils % 0.3 Absolute Granulocytes 2.79 Basophils # 0.02 PT INR D-Dimer 729 H* Sodium 134 L Potassium 4.4 Chloride 102 Carbon Dioxide 24 Anion Gap 12.6 BUN 11 Creatinine 0.78 Estimated GFR > 60.0 Glucose 177 H POC Glucometer Hemoglobin A1c Calcium 9.0 Total Bilirubin 0.40 AST 29 ALT 33 Alkaline Phosphatase 97 Troponin I NT-Pro-B Natriuret Pep 48.0 Serum Total Protein 6.7 Albumin 3.9 Influenza Type A Ag Influenza Type B Ag RSV (PCR) SARS-CoV-2 (PCR) Orders (Last 24 hours) Category Date Time Status Bedrest with BRP/BSC ROUTINE Activity 02/10/22 10:02 Active Telephone Exchange Operator STAT Care 02/10/22 04:36 Completed Code Status Order ROUTINE Care 02/10/22 10:02 Active EKG-ER Only STAT Care 02/10/22 04:35 Completed IV Care Q6H Care 02/10/22 10:02 Active IV Insertion STAT Care 02/10/22 04:35 Completed Implement Chest Pain Pathway ROUTINE Care 02/10/22 10:02 Active POCT Glucose Check ACHS Care 02/10/22 10:[address] in Observation ROUTINE Care 02/10/22 10:02 Active Pulse Oximetry (ED) STAT Care 02/10/22 04:35 Completed Haydee Bernal ROUTINE Care 02/10/22 10:02 Active Telemetry q6h Care 02/10/22 10:02 Completed Weight,Daily 0600 Care 02/10/22 10:02 Active Consistent Carbohydrate Diet 1800 Calorie Diet 02/10/22 Lunch Active CHEST 1 VIEW (PORTABLE) Stat Exams 02/10/22 04:43 Completed CHEST WITH CONTRAST [CT] Stat Exams 02/10/22 06:26 Completed ECHO W/2D AND DOPPLER [US] Routine Exams 02/10/22 14:04 Taken CBC W DIFF Stat Lab 02/10/22 04:41 Completed CMP Stat Lab 02/10/22 04:41 Completed D-DIMER QUANTITATIVE Stat Lab 02/10/22 04:30 Completed HEMOGLOBIN A1C Routine Lab 02/10/22 10:00 Completed LIPID PROFILE AM.LAB Lab 02/11/22 04:00 Ordered NT PRO BNP Stat Lab 02/10/22 04:41 Completed POCT GLUCOSE Stat Lab 02/10/22 11:41 Completed POCT GLUCOSE Stat Lab 02/10/22 15:31 Completed PROTIME WITH INR Stat Lab 02/10/22 04:41 Completed TROPONIN Q3H Lab 02/10/22 04:41 Completed TROPONIN Q3H Lab 02/10/22 07:10 Completed TROPONIN Q3H Lab 02/10/22 10:17 Completed TROPONIN Q3H Lab 02/10/22 13:47 Completed Acetaminophen 325 mg [Tylenol 325 mg] Med 02/10/22 10:02 Active 650 mg PO Q4H PRN PRN Albuterol/Ipratropium 3ml Neb* [DUONEB 0.5-3 MG/3 ml Med 02/10/22 12:34 Active Neb] 3 ml IH Q4H PRN PRN Aspirin 81 gm Chew [Baby Aspirin 81 mg Chew] Med 02/10/22 04:43 Discontinued 324 mg .ROUTE .STK-MED ONE Aspirin 81 gm Chew [Baby Aspirin 81 mg Chew] Med 02/10/22 04:35 Discontinued 324 mg PO STAT ONE Aspirin EC 81 mg [Ecotrin 81 mg] Med 02/10/22 13:00 Active 81 mg PO DAILY Carvedilol 6.25 mg [Coreg 6.25 MG] Med 02/10/22 13:00 Active 6.25 mg PO BID Fentanyl Citrate 100 Mcg/2 ml* [Sublimaze 100 Mcg/2 ml* Med 02/10/22 10:05 Active ] 25 mcg IV Q4H PRN PRN Fluoxetine HCl 20 mg [Prozac 20 MG] Med 02/10/22 13:00 Active 20 mg PO DAILY Fluticasone/Salmeterol 115/21 [Advair Hfa 115/21 Common Med 02/10/22 19:00 Active canister*] 2 puff IH BIDRT Fluticasone/Umeclidin/Vilanter [Trelegy Ellipta 200-62. Med 02/11/22 10:00 Discontinued 5-25] 1 each IH DAILY Gabapentin 300 mg [Neurontin 300 mg] Med 02/10/22 15:00 Active 300 mg PO TID Glipizide 2.5 mg [Glucotrol Xl 2.5 MG] Med 02/10/22 13:00 Active 5 mg PO DAILY Insulin Lispro [Humalog] Med 02/10/22 10:39 Active See Dose Instructions SQ UD PRN Lisinopril 5 mg [Zestril 5 MG] Med 02/10/22 13:00 Active 5 mg PO DAILY Mag Hydrox/Al Hydrox/Simeth [Maalox Es 30 ml Unit Med 02/10/22 10:02 Active Dose] 30 ml PO Q4H PRN PRN Magnesium Hydroxide 30 ml [Milk of Magnesia 30 ml Med 02/10/22 10:02 Active ] 30 - 60 ml PO QDP PRN Meclizine HCl 25 mg [Antivert 25 mg] Med 02/10/22 13:00 Active 25 mg PO BID Metformin HCl 500 mg [Glucophage 500 MG] Med 02/10/22 17:00 Active 500 mg PO BIDWM Metoclopramide HCl 10 mg [Reglan 10 MG] Med 02/10/22 16:30 Active 5 mg PO ACHS Modafinil 100 mg [Provigil 100MG Tablet] Med 02/11/22 08:00 Active 200 mg PO BREAKFAST NaCl 0.9% 500 ml [Sodium Chloride 0.9% 500 ML] 500 ml Med 02/10/22 05:57 Discontinued IV 500 mls/hr NaCl 0.9% 500 ml [Sodium Chloride 0.9% 500 ML] 500 ml Med 02/10/22 06:33 Discontinued IV UD Nitroglycerin 0.4 mg Tablet [Nitrostat 0.4 MG Tablet Med 02/10/22 12:45 Active ] 0.4 mg SL Q5MIN PRN MR X 3 PRN Ondansetron HCl 4 mg/2 ml [Zofran 4 MG/2 ML VIAL] Med 02/10/22 10:05 Active 4 mg IV Q4H PRN PRN PANTOPRAZOLE 40 mg Tablet [Protonix 40MG Tablet] Med 02/10/22 13:00 Active 40 mg PO DAILY Ropinirole 2Mg [Requip 2Mg Tab] Med 02/10/22 22:00 Active 2 mg PO HS Senna/Docusate Sodium Tab [Senokot-S Tablet] Med 02/10/22 10:02 Active 2 udtab PO BID PRN PRN Simvastatin 20Mg [Zocor 20Mg] Med 02/10/22 22:00 Active 20 mg PO HS EKG ONCE RT 02/10/22 12:08 Completed EKG ONCE RT 02/11/22 05:00 Active EKG ONCE RT 02/12/22 05:00 Active EKG ONCE RT 02/13/22 05:00 Active EKG Q8HX2,QAMX3,PRN RT 02/10/22 10:02 Completed Pulse Oximetry Q4H RT 02/10/22 10:02 Completed Pulse Oximetry ROUTINE RT 02/10/22 14:05 Active Respiratory Therapy Assessment DAILY RT 02/11/22 07:00 Active Transfer Order Routine Transfer 02/10/22 Completed Patient Care Notes (Last 24 hours) 02/10/22 11:55 Nursing Note by Kay Turk ROUNDED WITH DR. ALCARAZ, NO CHANGES MADE Initialized on 02/10/22 11:55 - END OF NOTE 02/10/22 10:18 Nursing Note by Zayra Enciso I called consult to 's office and spoke with Marimar about patient. Initialized on 02/10/22 10:18 - END OF NOTE Code(s): I24.9 - ACUTE ISCHEMIC HEART DISEASE, UNSPECIFIED (2) COPD (chronic obstructive pulmonary disease) Current Visit: No Status: Acute Onset Date: ~02/24/18 Qualifiers: Emphysema type: unspecified (3) Essential hypertension Current Visit: No Status: Acute Code(s): I10 - ESSENTIAL (PRIMARY) HYPERTENSION
[2022-02-10] MEDS ORDERED: NON-FORMULARY ITEM (Omeprazole Magnesium [Prilosec Otc] 20 MG Tablet.Dr) PO SCH (22:00)
[2022-02-10] MEDS ORDERED: REQUIP 2MG TAB PO SCH (22:00)
[2022-02-10] MEDS ORDERED: ZOCOR 20MG PO SCH (22:00)
[2022-02-10] MEDS ORDERED: NON-FORMULARY ITEM (Pravastatin Sodium [Pravastatin Sodium] 20 MG Tablet) PO SCH (22:00)
[2022-02-10] MEDS ORDERED: NON-FORMULARY ITEM (Ropinirole Hcl [Requip] 1 MG Tablet) PO SCH (22:00)
[2022-02-11] MEDS: SUBLIMAZE 100 MCG/2 ML IV PRN ×4 (00:04→15:34)
[2022-02-11] MEDS: Advair Hfa 115/21 Common canister IH SCH (07:00)
[2022-02-11] MEDS: Reglan 10 MG PO SCH ×3 (07:16→15:34)
[2022-02-11] MEDS ORDERED: Provigil 100MG Tablet PO SCH (08:00)
[2022-02-11] MEDS ORDERED: MODAFINIL 200 MG PO SCH (08:00)
[2022-02-11] MEDS ORDERED: Glucophage 500 MG PO SCH (08:00)
--- NOTE | 2022-02-11 08:12 | PCM.NOTE ---
Date and Time: 02/11/22810 Subjective Assessment: doing better - Review of Systems Constitutional: No Fever, No Chills Eyes: No Symptoms Ears, Nose, & Throat: No Symptoms Respiratory: No Cough, No Short Of Breath Cardiac: No Chest Pain, No Edema, No Syncope Abdominal/Gastrointestinal: No Abdominal Pain, No Nausea, No Vomiting, No Diarrhea Genitourinary Symptoms: No Dysuria Musculoskeletal: No Back Pain, No Neck Pain Skin: No Rash Neurological: No Dizziness, No Focal Weakness, No Sensory Changes Psychological: No Symptoms Endocrine: No Symptoms Hematologic/Lymphatic: No Symptoms Immunological/Allergic: No Symptoms Objective Exam General Appearance: no apparent distress, alert Neurologic Exam: alert, oriented x 3, cooperative, normal mood/affect, nml cerebellar function, sensation nml, No motor deficits Skin Exam: normal color, warm, dry Eye Exam: PERRL, EOMI, eyes nml inspection Ears, Nose, Throat Exam: normal ENT inspection, pharynx normal, moist mucous membranes Neck Exam: normal inspection, non-tender, supple, full range of motion Respiratory Exam: normal breath sounds, lungs clear, No respiratory distress Cardiovascular Exam: regular rate/rhythm, normal heart sounds Gastrointestinal/Abdomen Exam: soft, No tenderness, No mass Extremity Exam: normal inspection, normal range of motion Back Exam: normal inspection, normal range of motion, No CVA tenderness, No vertebral tenderness Pelvic Exam: deferred Rectal Exam: deferred OBJECTIVE DATA Vital Signs: Vital Signs - 24 hr Temp Pulse Resp BP Pulse Ox 02/11/22 07:46 97.5 F 101 H 20 140/89 94 L 02/11/22 07:04 94 H 18 92 L 02/11/22 04:00 97.7 F 85 18 128/60 94 L 02/11/22 00:00 97.5 F 87 18 114/66 93 L 02/10/22 19:44 97.1 F 97 H 21 109/51 94 L 02/10/22 18:31 96 H 18 94 L 02/10/22 16:00 98.2 F 85 18 118/60 91 L 02/10/22 14:06 88 18 93 L 02/10/22 14:05 93 L 02/10/22 10:33 97.5 F 87 18 124/78 93 L 02/10/22 09:56 92 H 18 127/80 93 L Pain Assessment - Last Documented Pain Intensity 0 Pain Scale Used [facility] Intake and Output: Intake & Output 02/08/22 02/09/22 02/10/22 02/11/22 11:59 11:59 11:59 11:59 Intake Total 720 Output Total 600 Balance 120 Weight 120.9 kg 118.3 kg Lab Results: Lab Results-Last 24 Hours 02/10/22 02/10/22 02/10/22 Range/Units 08:53 10:00 10:17 POC Glucometer (74 to 106) mg/dL Hemoglobin A1c 7.50 H (4.5-6.0) % Troponin I < 0.012 (0.000-0.034) ng/mL Influenza Type A Ag NEGATIVE (NEGATIVE) Influenza Type B Ag NEGATIVE (NEGATIVE) RSV (PCR) NEGATIVE (Negative) SARS-CoV-2 (PCR) NEGATIVE (NEGATIVE) 02/10/22 02/10/22 02/10/22 Range/Units 11:41 13:47 15:31 POC Glucometer 188 H 174 H (74 to 106) mg/dL Hemoglobin A1c (4.5-6.0) % Troponin I < 0.012 (0.000-0.034) ng/mL Influenza Type A Ag (NEGATIVE) Influenza Type B Ag (NEGATIVE) RSV (PCR) (Negative) SARS-CoV-2 (PCR) (NEGATIVE) 02/10/22 02/11/22 Range/Units 21:02 07:28 POC Glucometer 153 H 161 H (74 to 106) mg/dL Hemoglobin A1c (4.5-6.0) % Troponin I (0.000-0.034) ng/mL Influenza Type A Ag (NEGATIVE) Influenza Type B Ag (NEGATIVE) RSV (PCR) (Negative) SARS-CoV-2 (PCR) (NEGATIVE) Radiology Exams: Radiology Procedures Category Date Time Status CHEST 1 VIEW (PORTABLE) Stat Exams 02/10/22 04:43 Completed CHEST WITH CONTRAST [CT] Stat Exams 02/10/22 06:26 Completed ECHO W/2D AND DOPPLER [US] Routine Exams 02/10/22 14:04 Taken Assessment/Plan (1) Acute coronary syndrome Current Visit: Yes Status: Acute Assessment & Plan: Chief Complaint Diagnosis chest pain for 1 day Allergies Allergy/AdvReac Type Severity Reaction Status Date / Time morphine Allergy Intermediate Verified 02/10/22 04:03 levofloxacin [From Levaquin] AdvReac Intermediate Verified 02/10/22 04:03 Vital Signs (Last 24 hours) Temp Pulse Resp BP Pulse Ox 02/11/22 07:46 97.5 F 101 H 20 140/89 94 L 02/11/22 07:04 94 H 18 92 L 02/11/22 04:00 97.7 F 85 18 128/60 94 L 02/11/22 00:00 97.5 F 87 18 114/66 93 L 02/10/22 19:44 97.1 F 97 H 21 109/51 94 L 02/10/22 18:31 96 H 18 94 L 02/10/22 16:00 98.2 F 85 18 118/60 91 L 02/10/22 14:06 88 18 93 L 02/10/22 14:05 93 L 02/10/22 10:33 97.5 F 87 18 124/78 93 L 02/10/22 09:56 92 H 18 127/80 93 L Home Medications Medication Instructions Recorded Confirmed Last Taken Type Fluticasone/Umeclidin/Vilanter 1 each IH DAILY 02/10/22 02/10/22 02/10/22 History [Trelegy Ellipta 200-62.5-25] Non-Formulary Drug [Non-Formulary 5 mg PO ACHS 02/10/22 02/10/22 02/10/22 History Item] lisinopriL [Lisinopril] 5 mg PO DAILY 02/10/22 02/10/22 Unknown History modafiniL [Modafinil] 200 mg PO DAILY 02/10/22 02/10/22 Unknown History Current Medications Generic Name Dose Route Start Last Admin Trade Name Freq PRN Reason Stop Dose Admin Acetaminophen 650 mg 02/10/22 10:02 02/10/22 17:50 Acetaminophen 325 Mg Tablet PO 03/12/22 10:01 650 mg Q4H PRN PRN Administration PAIN AND/OR FEVER Al Hydrox/Mg Hydrox/Simethicone 30 ml 02/10/22 10:02 Mag Hydrox/Al Hydrox/Simeth 30 Ml Udcup PO 03/12/22 10:01 Q4H PRN PRN INDIGESTION Albuterol/Ipratropium 3 ml 02/10/22 12:34 Ipratropium/Albuterol Sulfate 3 Ml Ampul.Neb IH 03/12/22 12:33 Q4H PRN PRN Wheezing/Chest Congestion Aspirin 81 mg 02/10/22 13:00 02/10/22 12:52 Aspirin 81 Mg Tablet.Ec PO 03/12/22 12:59 81 mg DAILY ARSH Administration Carvedilol 6.25 mg 02/10/22 13:00 02/10/22 21:30 Carvedilol 6.25 Mg Tablet PO 03/12/22 12:59 6.25 mg BID ARSH Administration Fentanyl Citrate 25 mcg 02/10/22 10:05 02/11/22 07:14 Fentanyl Citrate 100 Mcg/2 Ml* Vial IV 02/15/22 10:04 25 mcg Q4H PRN PRN Administration SEVERE PAIN Fluoxetine HCl 20 mg 02/10/22 13:00 02/10/22 12:52 Fluoxetine Hcl 20 Mg Cap PO 03/12/22 12:59 20 mg DAILY ARSH Administration Gabapentin 300 mg 02/10/22 15:00 02/10/22 21:31 Gabapentin 300 Mg Capsule PO 03/12/22 14:59 300 mg TID ARSH Administration Glipizide 5 mg 02/10/22 13:00 02/10/22 14:19 Glipizide 2.5 Mg Xl Tablet PO 03/12/22 12:59 5 mg DAILY ARSH Administration Insulin Human Lispro 0 unit 02/10/22 10:39 Insulin Lispro 1 Unit SQ 03/12/22 10:38 UD PRN HYPERGLYCEMIA Lisinopril 5 mg 02/10/22 13:00 02/10/22 12:52 Lisinopril 5 Mg Tablet PO 03/12/22 12:59 5 mg DAILY ARSH Administration Magnesium Hydroxide 30 - 60 ml 02/10/22 10:02 Magnesium Hydroxide 30 Ml Udcup PO 03/12/22 10:01 QDP PRN CONSTIPATION Meclizine HCl 25 mg 02/10/22 13:00 02/10/22 21:30 Meclizine Hcl 25 Mg Tablet PO 03/12/22 12:59 25 mg BID ARSH Administration Metformin HCl 500 mg 02/12/22 08:00 Metformin Hcl 500 Mg Tablet PO 03/14/22 07:59 08,17 ARSH Metoclopramide HCl 5 mg 02/10/22 16:30 02/11/22 07:16 Metoclopramide Hcl 10 Mg Tablet PO 03/12/22 16:29 5 mg ACHS ARSH Administration Modafinil 200 mg 02/11/22 08:00 02/11/22 07:16 Modafinil 100 Mg Tab PO 03/13/22 07:59 200 mg BREAKFAST ARSH Administration Nitroglycerin 0.4 mg 02/10/22 12:45 Nitroglycerin 0.4 Mg Tablet Bottle SL 03/12/22 12:44 Q5MIN PRN MR X 3 PRN Ondansetron HCl 4 mg 02/10/22 10:05 02/10/22 10:27 Ondansetron Hcl 4 Mg/2 Ml Vial IV 03/12/22 10:04 4 mg Q4H PRN PRN Administration NAUSEA/VOMITING Pantoprazole Sodium 40 mg 02/10/22 13:00 02/10/22 12:52 Protonix (Pantoprazole) 40 Mg Tablet PO 03/12/22 12:59 40 mg DAILY ARSH Administration Ropinirole HCl 2 mg 02/10/22 22:00 02/10/22 21:30 Ropinirole Hcl 2 Mg Tablet PO 03/12/22 21:59 2 mg HS ARSH Administration Fluticasone/Salmeterol 2 puff 02/10/22 19:00 02/11/22 07:00 Fluticasone/Salmeterol 115/21 - 120 Puff Common Canister IH 03/12/22 18:59 2 puff BIDRT ARSH Administration Senna/Docusate Sodium 2 udtab 02/10/22 10:02 Senna/Docusate Sodium 1 Udtab Tablet PO 03/12/22 10:01 BID PRN PRN CONSTIPATION Simvastatin 20 mg 02/10/22 22:00 02/10/22 21:30 Simvastatin 20 Mg Tablet PO 03/12/22 21:59 20 mg HS ARSH Administration Discontinued Medications Generic Name Dose Route Start Last Admin Trade Name Freq PRN Reason Stop Dose Admin Aspirin 324 mg 02/10/22 04:35 02/10/22 04:44 Aspirin 81 Mg Tab.Chew PO 02/10/22 04:36 324 mg STAT ONE Administration Aspirin Confirm 02/10/22 04:43 Aspirin 81 Mg Tab.Chew Administered 02/10/22 04:44 Dose 324 mg .ROUTE .STK-MED ONE Sodium Chloride 500 mls @ 500 mls/hr 02/10/22 05:57 02/10/22 07:38 Sodium Chloride 0.9% 500 Ml IV 02/10/22 06:56 Infused .Q1H ONE Infusion Sodium Chloride Confirm 02/10/22 06:33 Sodium Chloride 0.9% 500 Ml Administered 02/10/22 06:34 Dose 500 mls @ ud IV .STK-MED ONE Metformin HCl 500 mg 02/10/22 17:00 02/10/22 16:29 Metformin Hcl 500 Mg Tablet PO 03/12/22 16:59 Not Given BIDWM ARSH Metformin HCl 500 mg 02/11/22 08:00 Metformin Hcl 500 Mg Tablet PO 03/13/22 07:59 08,17 ARSH Non-Formulary Medication 1 each 02/11/22 10:00 Fluticasone/Umeclidin/Vilanter [Trelegy Ellipta 200-62.5-25] IH 03/13/22 09:59 DAILY ARSH Intake & Output (Last 24 hours) 02/08/22 02/09/22 02/10/22 02/11/22 11:59 11:59 11:59 11:59 Intake Total 720 Output Total 600 Balance 120 Weight 120.9 kg 118.3 kg Laboratory Results (Last 24 hours) 02/11/22 02/10/22 02/10/22 07:28 21:02 15:31 POC Glucometer 161 H 153 H 174 H Hemoglobin A1c Troponin I Influenza Type A Ag Influenza Type B Ag RSV (PCR) SARS-CoV-2 (PCR) 02/10/22 02/10/22 02/10/22 13:47 11:41 10:17 POC Glucometer 188 H Hemoglobin A1c Troponin I < 0.012 < 0.012 Influenza Type A Ag Influenza Type B Ag RSV (PCR) SARS-CoV-2 (PCR) 02/10/22 02/10/22 10:00 08:53 POC Glucometer Hemoglobin A1c 7.50 H Troponin I Influenza Type A Ag NEGATIVE Influenza Type B Ag NEGATIVE RSV (PCR) NEGATIVE SARS-CoV-2 (PCR) NEGATIVE Orders (Last 24 hours) Category Date Time Status Bedrest with BRP/BSC ROUTINE Activity 02/10/22 10:02 Active Code Status Order ROUTINE Care 02/10/22 10:02 Active IV Care Q6H Care 02/10/22 10:02 Active Implement Chest Pain Pathway ROUTINE Care 02/10/22 10:02 Active POCT Glucose Check ACHS Care 02/10/22 10:[address] in Observation ROUTINE Care 02/10/22 10:02 Active Haydee Bernal ROUTINE Care 02/10/22 10:02 Active Telemetry q6h Care 02/10/22 10:02 Completed Weight,Daily 0600 Care 02/10/22 10:02 Active Consistent Carbohydrate Diet 1800 Calorie Diet 02/10/22 Lunch Active ECHO W/2D AND DOPPLER [US] Routine Exams 02/10/22 14:04 Taken HEMOGLOBIN A1C Routine Lab 02/10/22 10:00 Completed LIPID PROFILE AM.LAB Lab 02/11/22 05:30 Received POCT GLUCOSE Stat Lab 02/10/22 11:41 Completed POCT GLUCOSE Stat Lab 02/10/22 15:31 Completed POCT GLUCOSE Stat Lab 02/10/22 21:02 Completed POCT GLUCOSE Stat Lab 02/11/22 07:28 Completed TROPONIN Q3H Lab 02/10/22 10:17 Completed TROPONIN Q3H Lab 02/10/22 13:47 Completed Acetaminophen 325 mg [Tylenol 325 mg] Med 02/10/22 10:02 Active 650 mg PO Q4H PRN PRN Albuterol/Ipratropium 3ml Neb* [DUONEB 0.5-3 MG/3 ml Med 02/10/22 12:34 Active Neb] 3 ml IH Q4H PRN PRN Aspirin EC 81 mg [Ecotrin 81 mg] Med 02/10/22 13:00 Active 81 mg PO DAILY Carvedilol 6.25 mg [Coreg 6.25 MG] Med 02/10/22 13:00 Active 6.25 mg PO BID Fentanyl Citrate 100 Mcg/2 ml* [Sublimaze 100 Mcg/2 ml* Med 02/10/22 10:05 Active ] 25 mcg IV Q4H PRN PRN Fluoxetine HCl 20 mg [Prozac 20 MG] Med 02/10/22 13:00 Active 20 mg PO DAILY Fluticasone/Salmeterol 115/21 [Advair Hfa 115/21 Common Med 02/10/22 19:00 Active canister*] 2 puff IH BIDRT Fluticasone/Umeclidin/Vilanter [Trelegy Ellipta 200-62. Med 02/11/22 10:00 Di scontinued 5-25] 1 each IH DAILY Gabapentin 300 mg [Neurontin 300 mg] Med 02/10/22 15:00 Active 300 mg PO TID Glipizide 2.5 mg [Glucotrol Xl 2.5 MG] Med 02/10/22 13:00 Active 5 mg PO DAILY Insulin Lispro [Humalog] Med 02/10/22 10:39 Active See Dose Instructions SQ UD PRN Lisinopril 5 mg [Zestril 5 MG] Med 02/10/22 13:00 Active 5 mg PO DAILY Mag Hydrox/Al Hydrox/Simeth [Maalox Es 30 ml Unit Med 02/10/22 10:02 Active Dose] 30 ml PO Q4H PRN PRN Magnesium Hydroxide 30 ml [Milk of Magnesia 30 ml Med 02/10/22 10:02 Active ] 30 - 60 ml PO QDP PRN Meclizine HCl 25 mg [Antivert 25 mg] Med 02/10/22 13:00 Active 25 mg PO BID Metformin HCl 500 mg [Glucophage 500 MG] Med 02/11/22 08:00 Discontinued 500 mg PO 08,17 Metformin HCl 500 mg [Glucophage 500 MG] Med 02/12/22 08:00 Active 500 mg PO 08,17 Metformin HCl 500 mg [Glucophage 500 MG] Med 02/10/22 17:00 Discontinued 500 mg PO BIDWM Metoclopramide HCl 10 mg [Reglan 10 MG] Med 02/10/22 16:30 Active 5 mg PO ACHS Modafinil 100 mg [Provigil 100MG Tablet] Med 02/11/22 08:00 Active 200 mg PO BREAKFAST Nitroglycerin 0.4 mg Tablet [Nitrostat 0.4 MG Tablet Med 02/10/22 12:45 Active ] 0.4 mg SL Q5MIN PRN MR X 3 PRN Ondansetron HCl 4 mg/2 ml [Zofran 4 MG/2 ML VIAL] Med 02/10/22 10:05 Active 4 mg IV Q4H PRN PRN PANTOPRAZOLE 40 mg Tablet [Protonix 40MG Tablet] Med 02/10/22 13:00 Active 40 mg PO DAILY Ropinirole 2Mg [Requip 2Mg Tab] Med 02/10/22 22:00 Active 2 mg PO HS Senna/Docusate Sodium Tab [Senokot-S Tablet] Med 02/10/22 10:02 Active 2 udtab PO BID PRN PRN Simvastatin 20Mg [Zocor 20Mg] Med 02/10/22 22:00 Active 20 mg PO HS EKG ONCE RT 02/10/22 12:08 Completed EKG ONCE RT 02/11/22 05:00 Completed EKG ONCE RT 02/12/22 05:00 Active EKG ONCE RT 02/13/22 05:00 Active EKG Q8HX2,QAMX3,PRN RT 02/10/22 10:02 Completed Pulse Oximetry .spot check RT 02/10/22 14:05 Active Pulse Oximetry Q4H RT 02/10/22 10:02 Completed Respiratory Therapy Assessment DAILY RT 02/11/22 07:00 Active Patient Care Notes (Last 24 hours) 02/10/22 11:55 Nursing Note by Kay Turk ROUNDED WITH DR. ALCARAZ, NO CHANGES MADE Initialized on 02/10/22 11:55 - END OF NOTE 02/10/22 10:18 Nursing Note by Zayra Enciso I called consult to 's office and spoke with Marimar about patient. Initialized on 02/10/22 10:18 - END OF NOTE Code(s): I24.9 - ACUTE ISCHEMIC HEART DISEASE, UNSPECIFIED (2) COPD (chronic obstructive pulmonary disease) Current Visit: Yes Status: Chronic Onset Date: ~02/24/18 Qualifiers: Emphysema type: unspecified (3) Essential hypertension Current Visit: No Status: Acute Code(s): I10 - ESSENTIAL (PRIMARY) HYPERTENSION
[2022-02-11] MEDS: Glucotrol Xl 2.5 MG PO SCH (08:55)
[2022-02-11] MEDS: NEURONTIN 300 MG PO SCH ×2 (08:55→15:40)
[2022-02-11] MEDS: Coreg 6.25 MG PO SCH (08:55)
[2022-02-11] MEDS: ANTIVERT 25 MG PO SCH (08:55)
[2022-02-11] MEDS: ECOTRIN 81 MG PO SCH (08:55)
[2022-02-11] MEDS: Protonix 40MG Tablet PO SCH (08:55)
[2022-02-11] MEDS: Zestril 5 MG PO SCH (08:55)
[2022-02-11] MEDS: Prozac 20 MG PO SCH (08:55)
[2022-02-11] MEDS ORDERED: NON-FORMULARY ITEM (Fluticasone/Umeclidin/Vilanter [Trelegy Ellipta 200-62.5-25] 1 EACH Bl IH SCH (10:00)
[2022-02-11] MEDS: TYLENOL 325 MG PO PRN ×2 (11:19→15:34)
[2022-02-11] MEDS ORDERED: DUONEB 0.5-3 MG/3 ml Neb IH ONE (12:01)
[2022-02-11 12:36] LABS: Risk Ratio 3.4
[2022-02-11 16:28] VITALS: BP 127/74; PULSE 87; O2SAT 90
[2022-02-12] MEDS ORDERED: Glucophage 500 MG PO SCH (08:00)
--- NOTE | 2022-02-12 08:38 | CONS ---
CONSULT DATE: 02/11/2022 BRIEF HISTORY: This is a 56-year-old female who was seen because of chest pain. The patient stated that she has been having some chest discomfort which usually occurs at rest and not consistently related to effort. Fairly localized and it lasts for several minutes and relieves spontaneously. She has had a previous coronary calcium score of 0. Her troponin I is less than 0.012. CARDIAC RISK FACTORS: Positive for diabetes. Positive for hypertension. She is a reformed smoker. She has hyperlipidemia. 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 She stated she has a history of seizures but not on anti-seizure medication. She has migraines. RESPIRATORY: She has chronic obstructive pulmonary disease and asthma. GI: She has history of diverticulitis and gastroparesis. : Negative for dysuria or hematuria. No flank pains. PERIPHERAL VASCULAR: No history of deep vein thrombosis or claudication. SKIN: No active dermatological problems. HEMATOLOGY: No blood dyscrasia. CURRENT MEDICATIONS: Aspirin, carvedilol, Advair, Neurontin, Glipizide, lisinopril, meclizine, metformin, Reglan, Provigil, Protonix, Requip, Pravastatin. PHYSICAL EXAMINATION: On examination the blood pressure is 118/60 with heart rate 86, respirations about 14. GENERAL: The patient is a middle aged female who is obese, alert, oriented, who is not in any form of distress and comfortable in recumbent position. HEENT: Unremarkable. NECK: No significant JVD. No carotid bruits. CHEST: The breath sounds are clear bilaterally. There is some tenderness along the left costochondral junction. CARDIAC: Heart tones are normal. The rhythm is regular. There is no audible gallop, rub or murmur. ABDOMEN: Soft with normal bowel sounds. EXTREMITIES: No significant edema. 1+ pedal pulses however both feet feel warm. LAB DATA AND DIAGNOSTIC TESTS: The electrocardiogram showed normal sinus rhythm with nonspecific ST changes. IMPRESSION: In essence the patient presented with chest pains somewhat atypical for angina. She has had a previous coronary calcium score of 0 which would suggest a low likelihood of significant coronary artery disease. It may still be secondary to costochondritis. Will continue with modification of cardiovascular risk factors particularly control of blood pressure. Continue with current medications. I will follow her up in the clinic. So far her troponin I's are normal. I emphasized to her the importance of losing weight to reduce the risk for future cardiovascular event.
--- NOTE | 2022-02-12 15:08 | ECHO ---
Transthoracic echocardiographic examination and color Doppler was done on 02/10/2022. INDICATION: Chest pain. IMPRESSION: THE EXAM WAS SUBOPTIMAL BECAUSE OF A LIMITED ACOUSTIC WINDOW. The left ventricle is only partially visualized but this demonstrates adequate left ventricular wall motion with estimated global left ventricular ejection fraction of around 50 to 55%. The right side chambers appear to be mildly dilated. The mitral and aortic valves are partially visualized and appears to open adequately. There appears to be some echo density in the right atrium. Further interrogation of the right atrium is suggested.
== END 2022-02-11 17:38 | disposition home or self-care (01) ==
LOC: ED 04:02 → MED SURG 10:00
PROVIDERS: ADMIT General Practice; ATTEND General Practice
DX: I24.9 Acute ischemic heart disease, unspecified (principal); J44.9 Chronic obstructive pulmonary disease, unspecified; I10 Essential (primary) hypertension; E11.9 Type 2 diabetes mellitus without complications; E78.5 Hyperlipidemia, unspecified; Z79.899 Other long term (current) drug therapy; Z20.828 Contact with and (suspected) exposure to other viral communicable diseases
CPT/HCPCS: 0241U; 36000; 36415; 71045; 71260; 80053; 80061; 82947; 83036; 83721; 83880; 84484; 85025; 85379; 85610; 93005; 93041; 93306; 94640; 94760; 96374; 99285; 93268; J2405; J3010; A9270-GY; G0378

== ENCOUNTER 2022-10-18 13:00 | Emergency (ER) | payer MEDICARE ==
[2022-10-18 13:34] VITALS: O2SAT 97
[2022-10-18] MEDS ORDERED: TORAdol 30 mg Injection IM ONE (14:05)
--- NOTE | 2022-10-18 14:13 | ERPHSYRPT ---
- History of Present Illness Time Seen by Provider: 10/18/22 14:07 Source: patient Exam Limitations: no limitations Patient Subjective Stated Complaint: pt here for pain to lower left leg for a week after falling and bending back leg Triage Nursing Assessment: pt alert, face mask in place, walked in with a limp, no bruising noted, states pain from top of knee to ankle Physician History: 57-year-old female presents to our ED with left leg and left distal femur pain. Patient fell last week. Patient has been having pain since. Patient walks with a limp. No other injuries reported. No BHT or LOC. No neck pain. Cervical spine cleared clinically. Symptoms are mild to moderate in intensity. No specific worsening improving factors. Patient requesting pain medication. She voices no other complaints or concerns at this time. Portions of this note were created with voice recognition technology. There may be grammatical, spelling, punctuation or sound alike errors Method of Injury: fell Occurred: last week Quality: intermittent Severity of Pain-Max: moderate Severity of Pain-Current: mild Lower Extremities Pain: leg: left, thigh: left Modifying Factors: Improves With: nothing Associated Symptoms: none Allergies/Adverse Reactions: morphine Allergy (Intermediate, Verified 10/18/22 13:34) levofloxacin [From Levaquin] Adverse Reaction (Intermediate, Verified 10/18/22 13:34) PT STATES ONE TIME SHE HAD THIS MEDICINE AND HER VEINS ALL TURNED BRIGHT RED Home Medications: Meclizine HCl 25 mg [Antivert 25 mg] 25 mg PO BID 02/21/18 [History] Ropinirole HCl [Requip] 2 mg PO HS 02/21/18 [History] carvediloL [Carvedilol] 6.25 mg PO BID 02/22/18 [History] Fluoxetine HCl 20 mg [Prozac 20 MG] 20 mg PO DAILY 07/15/20 [History] Gabapentin 300 mg PO TID 07/15/20 [History] Metformin HCl 500 mg [Glucophage 500 MG] 500 mg PO BID 07/15/20 [History] glipiZIDE [Glipizide ER] 5 mg PO DAILY 07/15/20 [History] Omeprazole Magnesium [Prilosec Otc] 20 mg PO BID 07/16/20 [History] Nitroglycerin 0.4 mg Tablet [Nitrostat 0.4 MG Tablet] 0.4 mg SL UD 11/16/20 [History] Pravastatin Sodium 20 mg PO HS 11/16/20 [History] Fluticasone/Umeclidin/Vilanter [Trelegy Ellipta 200-62.5-25] 1 each IH DAILY 02/10/22 [History] Non-Formulary Drug [Non-Formulary Item] 5 mg PO ACHS 02/10/22 [History] lisinopriL [Lisinopril] 5 mg PO DAILY 02/10/22 [History] modafiniL [Modafinil] 200 mg PO DAILY 02/10/22 [History] Hx Tetanus, Diphtheria Vaccination/Date Given: No Hx Influenza Vaccination/Date Given: Yes Hx Pneumococcal Vaccination/Date Given: Yes Immunizations Up to Date: Yes Travel Risk - International Travel Have you traveled outside of the country in past 3 weeks: No - Coronavirus Screening Are you exhibiting any of the following symptoms?: No Close contact with a COVID-19 positive Pt in past 14-21 Days: No - Vaccine Status Have you recieved a Covid-19 vaccination: Yes 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 - Vaccination Dates Date of 2cond Vaccination (if applicable): 11/2021 - Review of Systems Constitutional: No Symptoms, No Fever, No Chills Eyes: No Symptoms Ears, Nose, & Throat: No Symptoms Respiratory: No Symptoms, No Cough, No Dyspnea Cardiac: No Symptoms, No Chest Pain, No Edema, No Syncope Abdominal/Gastrointestinal: No Symptoms, No Abdominal Pain, No Nausea, No Vomiting, No Diarrhea Genitourinary Symptoms: No Symptoms, No Dysuria Musculoskeletal: No Symptoms, No Back Pain, No Neck Pain Skin: No Symptoms, No Rash Neurological: No Symptoms, No Dizziness, No Focal Weakness, No Sensory Changes Psychological: No Symptoms Endocrine: No Symptoms Hematologic/Lymphatic: No Symptoms Immunological/Allergic: No Symptoms All Other Systems: Reviewed and Negative - Past Medical History Pertinent Past Medical History: Yes Neurological History: Seizures ENT History: Cataracts Cardiac History: High Cholesterol, Hypertension, Other Respiratory History: Asthma, Bronchitis, COPD Endocrine Medical History: Diabetes Type II, Other Musculoskeletal History: Arthritis, Osteoarthritis GI Medical History: Diverticulitis, GERD History: No Pertinent History Psycho-Social History: Anxiety, Depression Female Reproductive Disorders: No Pertinent History Other Medical History: 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 LEAKING HEART VALVE - Past Surgical History Past Surgical History: Yes Neuro Surgical History: No Pertinent History Cardiac: Angioplasty, Cardiac Catheterization Respiratory: No Pertinent History Gastrointestinal: Cholecystectomy Genitourinary: No Pertinent History Musculoskeletal: No Pertinent History, Orthopedic Surgery Female Surgical History: Tubal Ligation Other Surgical History: HEART CATH, left rotator cuff in oct 2015. "leaky heart valve"; right thumb surgery - Social History Smoking Status: Former smoker How long have you smoked: 6 YEARS Exposure to second hand smoke: No Alcohol Use: None Drug Use: none Patient Lives Alone: Yes Significant Family History: no pertinent family hx - Nursing Vital Signs Nursing Vital Signs: Initial Vital Signs Temperature 97.2 F 10/18/22 13:33 Pulse Rate 89 10/18/22 13:33 Respiratory Rate 18 10/18/22 13:33 Blood Pressure 137/83 10/18/22 13:33 O2 Sat by Pulse Oximetry 97 10/18/22 13:33 Pain Scale Pain Intensity 6 - Physical Exam General Appearance: no apparent distress, alert Eyes, Ears, Nose, Throat Exam: normal ENT inspection, TMs normal, pharynx normal, moist mucous membranes Neck Exam: normal inspection, non-tender, supple, full range of motion Cardiovascular/Respiratory Exam: chest non-tender, normal breath sounds, regular rate/rhythm, no respiratory distress Gastrointestinal/Abdominal Exam: non-tender, soft, no organomegaly, no hernia, guarding Back Exam: normal inspection, normal range of motion, No CVA tenderness, No vertebral tenderness Hips Exam: bilateral: non-tender, normal inspection, normal range of motion, no evidence of injury Legs Exam: right leg: non-tender, normal inspection, normal range of motion, no evidence of injury, left leg: bone tenderness, pain, bilateral leg: other (Involved extremity neurovascular intact distally. Compartments are soft. Cap refill less than 2 seconds. There is some resolving ecchymosis at the proximal leg and distal thigh.) Knees Exam: right knee: non-tender, normal inspection, normal range of motion, no evidence of injury, left knee: pain, soft tissue tenderness, bilateral knee: swelling (Negative Bean bilaterally. No swelling), other (Involved extremity neurovascular intact distally. Compartments are soft. Cap refill less than 2 seconds. PT/DP pulse palpable.) Ankle Exam: bilateral ankle: non-tender, normal inspection, normal range of motion, no evidence of injury Foot Exam: bilateral foot: non-tender, normal inspection, normal range of motion, no evidence of injury Neuro/Tendon Exam: normal sensation, normal motor functions, normal tendon functions Mental Status Exam: alert, oriented x 3, cooperative Skin Exam: normal color, warm, dry SpO2 Interpretation: normal SpO2: 97 O2 Delivery: Room Air - Course Nursing assessment & vital signs reviewed: Yes - Radiology Exams Lower Leg X-ray Interpretation: Teleradiologist Report (Small posterior knee flabella. Otherwise normal knee x-ray.) Femur X-ray Interpretation: Teleradiologist Report (Large plantar heel spur otherwise negative) Ordered Tests: Active Orders 24 hr Category Date Time Status FEMUR Stat Exams 10/18/22 14:04 Completed LOWER LEG Stat Exams 10/18/22 14:04 Completed Medication Summary Discontinued Medications Generic Name Dose Route Start Last Admin Trade Name Curry PRN Reason Stop Dose Admin Ketorolac Tromethamine 30 mg 10/18/22 14:05 10/18/22 14:30 Ketorolac Tromethamine 30 Mg/Ml Inj IM 10/18/22 14:06 30 mg STAT ONE Administration Ketorolac Tromethamine Confirm 10/18/22 14:28 Ketorolac Tromethamine 30 Mg/Ml Inj Administered 10/18/22 14:29 Dose 30 mg .ROUTE .STK-MED ONE - Progress Progress: improved Progress Note: Patient reassessed. Pain improved. X-rays negative for fracture dislocation. Patient likely experiencing soft tissue contusion. No indication for further work-up from the ER's perspective. Will discharge home. Patient agrees to follow-up with primary care doctor within 48 hours for evaluation. 10/18/22 15:23 Counseled pt/family regarding: diagnosis, need for follow-up, rad results - Departure Departure Disposition: Home Clinical Impression: Contusion of leg, Contusion, thigh, Large plantar heel spur, Fall Condition: Stable Critical Care Time: No Referrals: CAROL ANN ALCARAZ MD [Primary Care Provider] - Follow up/PCP as directed Instructions: Contusion (DC) Additional Instructions: Discharge/Care Plan LATHA SALAZAR was seen on 10/18/22 in the Emergency Room. The patient was counseled regarding Diagnosis,Lab results, Imaging studies, need for follow up and when to return to the Emergency Room. Prescriptions given: Discharge Note I have spoken with the patient and/or caregivers. I have explained the patient's condition, diagnosis and treatment plan based on the information available to me at this time. I have answered the patient's and/or caregiver's questions and addressed any concerns. The patient and/or caregivers have as good understanding of the patient's diagnosis, condition and treatment plan as can be expected at this point. The vital signs have been stable. The patient's condition is stable and appropriate for discharge from the emergency department. The patient will pursue further outpatient evaluation with the primary care ph ysician or other designated or consulting physician as outlined in the discharge instructions. The patient and/or caregivers are agreeable to this plan of care and follow-up instructions have been explained in detail. The patient and/or caregivers have received these instruction. The patient/and or caregivers are aware that any significant change in condition or worsening of symptoms should prompt an immediate return to this or the closest emergency department or call 911.
[2022-10-18] MEDS ORDERED: TORAdol 30 mg Injection ONE (14:28)
--- NOTE | 2022-10-18 14:54 | XRAY ---
Indication: Pain following fall one week ago. Comparison: None 2 view left lower leg demonstrates small posterior knee fabella and large plantar heel spur. No other bony, articular, or soft tissue abnormalities.
--- NOTE | 2022-10-18 14:54 | XRAY ---
Indication: Pain following fall one week ago. Comparison: None 2 view left femur demonstrates small posterior knee fabella. No other bony, articular, or soft tissue abnormalities.
[2022-10-18 15:26] VITALS: BP 127/78; PULSE 84
== END 2022-10-18 15:30 | disposition home or self-care (01) ==
LOC: ED 13:00
DX: S80.12XA Contusion of left lower leg, initial encounter (principal); S70.12XA Contusion of left thigh, initial encounter; W19.XXXA Unspecified fall, initial encounter; M77.32 Calcaneal spur, left foot; M79.605 Pain in left leg; E78.5 Hyperlipidemia, unspecified; I10 Essential (primary) hypertension; E11.9 Type 2 diabetes mellitus without complications; Z79.84 Long term (current) use of oral hypoglycemic drugs; Z79.899 Other long term (current) drug therapy
CPT/HCPCS: 73552; 73590; 96372; 99283; J1885

== ENCOUNTER 2023-11-04 14:53 | Emergency (ER) | payer MEDICARE ==
[2023-11-04 15:06] VITALS: TEMP 97
[2023-11-04] MEDS ORDERED: DUONEB 0.5-3 MG/3 ml Neb IH ONE ×2 (15:53→16:00)
--- NOTE | 2023-11-04 15:53 | ERPHSYRPT ---
- History of Present Illness Source: patient Exam Limitations: no limitations Patient Subjective Stated Complaint: C/O SOB since 10/28/23. States she went to the [facility] on 11/01/23. She reports she received a steroid injection, a steroid pack prescription and an antibiotic prescription on 11/01/23. Symptoms have not improved. Triage Nursing Assessment: Patient ambulated back to ER. SOB noted. She is alert and oriented. Wheezes present throughout. ZAYAS WNL. Skin tone normal. Physician History: 58-year-old female with cough for 1 week. She has had a fever and mild nausea and also complains of some midsternal chest pain with radiation to her back. Pain is 5 out of 10, described as pressure, and is worse with coughing. Patient smokes 1 pack/day until 2005. She was seen in [facility] 3 days ago and started on a Z-Gustavo and and prednisone. Patient states that she is not improving. Timing/Duration: other (1 week) Cough Quality/Degree: dry cough Possible Cause: occasional episodes Modifying Factors: Improves With: coughing Associated Symptoms: fever, nasal congestion Allergies/Adverse Reactions: morphine Allergy (Intermediate, Verified 11/04/23 14:55) levofloxacin [From Levaquin] Adverse Reaction (Intermediate, Verified 11/04/23 14:55) PT STATES ONE TIME SHE HAD THIS MEDICINE AND HER VEINS ALL TURNED BRIGHT RED Home Medications: Meclizine HCl 25 mg [Antivert 25 mg] 25 mg PO BID 02/21/18 [History] Ropinirole HCl [Requip] 2 mg PO BID 02/21/18 [History] Gabapentin 300 mg PO TID 07/15/20 [History] Metformin HCl 500 mg [Glucophage 500 MG] 1,000 mg PO BID 07/15/20 [History] Nitroglycerin 0.4 mg Tablet [Nitrostat 0.4 MG Tablet] 0.4 mg SL UD 11/16/20 [History] Pravastatin Sodium 20 mg PO HS 11/16/20 [History] lisinopriL [Lisinopril] 5 mg PO DAILY 02/10/22 [History] modafiniL [Modafinil] 200 mg PO DAILY 02/10/22 [History] Albuterol Sulfate [Albuterol Sulfate Hfa] 2 puff PO Q6H PRN PRN 11/04/23 [History] Azithromycin [Azithromycin 250 mg Pack] 1 tab PO DAILY 11/04/23 [History] Fluoxetine HCl 10 mg [Prozac 10 mg] 1 cap PO DAILY 11/04/23 [History] Insulin NPH Human Recom [Novolin N] 50 units SQ DAILY 11/04/23 [History] Metoclopramide HCl 1 tab PO QID 11/04/23 [History] Montelukast Sodium 10 mg [Singulair 10 MG] 1 tab PO DAILY 11/04/23 [History] Semaglutide [Ozempic] 0.25 mg SQ WEEKLY 11/04/23 [History] predniSONE [Prednisone] 40 mg PO DAILY 11/04/23 [History] Hx Tetanus, Diphtheria Vaccination/Date Given: Yes Hx Influenza Vaccination/Date Given: Yes Hx Pneumococcal Vaccination/Date Given: Yes Immunizations Up to Date: Yes Travel Risk - International Travel Have you traveled outside of the country in past 3 weeks: No - Coronavirus Screening Are you exhibiting any of the following symptoms?: Yes Symptoms: Fever, Cough: New Onset, Shortness of Breath - Vaccine Status Have you recieved a Covid-19 vaccination: Yes [employer]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 - Vaccination Dates Date of 2cond Vaccination (if applicable): 11/2021 - Review of Systems Constitutional: No Symptoms, Fever, Malaise Eyes: No Symptoms Ears, Nose, & Throat: No Symptoms Respiratory: Cough, Dyspnea Cardiac: No Symptoms, Chest Pain Abdominal/Gastrointestinal: No Symptoms Genitourinary Symptoms: No Symptoms Musculoskeletal: No Symptoms Skin: No Symptoms Neurological: No Symptoms Psychological: No Symptoms Endocrine: No Symptoms Hematologic/Lymphatic: No Symptoms Immunological/Allergic: No Symptoms - Past Medical History Pertinent Past Medical History: Yes Neurological History: Peripheral Neuropathy, Seizures ENT History: Cataracts Cardiac History: High Cholesterol, Hypertension Respiratory History: Asthma, COPD Endocrine Medical History: Diabetes Type II Musculoskeletal History: Degenerative Disk Disease, Osteoarthritis GI Medical History: Diverticulitis, GERD History: No Pertinent History Psycho-Social History: Anxiety, Depression Female Reproductive Disorders: No Pertinent History Other Medical History: 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 LEAKING HEART VALVE, gastroporesis - Past Surgical History Past Surgical History: Yes Neuro Surgical History: No Pertinent History Cardiac: Angioplasty, Cardiac Catheterization Respiratory: No Pertinent History Gastrointestinal: Cholecystectomy Genitourinary: No Pertinent History Musculoskeletal: No Pertinent History, Orthopedic Surgery Female Surgical History: Tubal Ligation Other Surgical History: HEART CATH, left rotator cuff in oct 2015. "leaky heart valve"; right thumb surgery, neck surgery - Social History Smoking Status: Former smoker How long have you smoked: 6 YEARS Exposure to second hand smoke: No Alcohol Use: None Drug Use: none Patient Lives Alone: No () Significant Family History: no pertinent family hx - Nursing Vital Signs Nursing Vital Signs: Initial Vital Signs Temperature 97 F 11/04/23 14:54 Pulse Rate 110 H 11/04/23 14:54 Respiratory Rate 30 H 11/04/23 14:54 O2 Sat by Pulse Oximetry 98 11/04/23 14:54 Pain Scale Pain Intensity 0 Tachycardic and mildly tachypneic - Physical Exam General Appearance: no apparent distress Eye Exam: PERRL/EOMI, eyes nml inspection Ears, Nose, Throat Exam: normal ENT inspection, TMs normal, pharynx normal, moist mucous membranes Neck Exam: normal inspection, non-tender, supple, full range of motion, No meningismus, No mass, No Brudzinski, No Kernig's Respiratory Exam: other (Scattered wheezes and rhonchi bilaterally) Cardiovascular Exam: other (Mildly tachy without murmur) Gastrointestinal/Abdomen Exam: soft (Obese, soft,) Back Exam: normal inspection, normal range of motion, No CVA tenderness Extremity Exam: normal inspection, normal range of motion Neurologic Exam: alert, oriented x 3, cooperative, 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 Lazcano) Ordered Tests: Active Orders 24 hr Category Date Time Status EKG-ER Only STAT Care 11/04/23 15:05 Completed IV Insertion STAT Care 11/04/23 15:05 Completed CHEST 1 VIEW (PORTABLE) Stat Exams 11/04/23 15:07 Completed CBC W DIFF Stat Lab 11/04/23 16:00 Completed CMP Stat Lab 11/04/23 16:00 Completed D-DIMER QUANTITATIVE Stat Lab 11/04/23 16:00 Completed NT PRO BNPII Stat Lab 11/04/23 16:00 Completed PROTIME WITH INR Stat Lab 11/04/23 16:00 Completed PTT Stat Lab 11/04/23 16:00 Completed TROPONIN Q4H Lab 11/04/23 16:00 Completed Respiratory Therapy Assessment ROUTINE RT 11/04/23 16:11 Completed Medication Summary Discontinued Medications Generic Name Dose Route Start Last Admin Trade Name Freq PRN Reason Stop Dose Admin Albuterol/Ipratropium 3 ml 11/04/23 15:53 11/04/23 16:00 Ipratropium/Albuterol Sulfate 3 Ml Ampul.Neb IH 11/04/23 15:54 3 ml STAT ONE Administration Albuterol/Ipratropium Confirm 11/04/23 16:00 Ipratropium/Albuterol Sulfate 3 Ml Ampul.Neb Administered 11/04/23 16:01 Dose 3 ml IH .STK-MED ONE Lab/Rad Data: Laboratory Result Diagrams 11/04/23 16:00 11/04/23 16:00 Laboratory Results 11/04/23 11/04/23 11/04/23 Range/Units Unknown 16:00 16:00 WBC (4.0-10.5) x10^3/uL RBC (4.1-5.4) x10^6/uL Hgb (12.0-16.0) g/dL Hct (35-47) % MCV (78-100) fL MCH (26-32) pg MCHC (32-36) g/dL RDW (11.5-14.0) % Plt Count (150-450) x10^3/uL MPV (7.5-11.0) fL Gran % (36.0-66.0) % Immature Gran % (Auto) (0.00-0.4) % Nucleat RBC Rel Count (0.00-0.1) % Eos # (Auto) (0-0.5) x10^3/uL Immature Gran # (Auto) (0.00-0.03) x10^3u/L Absolute Lymphs (auto) (1.0-4.6) x10^3/uL Absolute Monos (auto) (0.0-1.3) x10^3/uL Absolute Nucleated RBC (0.00-0.01) x10^3u/L Lymphocytes % (24.0-44.0) % Monocytes % (0.0-12.0) % Eosinophils % (0.00-5.0) % Basophils % (0.0-0.4) % Absolute Granulocytes (1.4-6.9) x10^3/uL Basophils # (0-0.4) x10^3/uL PT 10.3 (9.4-12.5) SECONDS INR 0.94 (0.8-3.0) APTT 22.8 L (25.1-36.5) SECONDS D-Dimer 0.35 (0.0-0.50) mg/L Sodium (137-145) mmol/L Potassium (3.5-5.1) mmol/L Chloride (98-107) mmol/L Carbon Dioxide (22-30) mmol/L Anion Gap (5-15) MEQ/L BUN (7-17) mg/dL Creatinine (0.52-1.04) mg/dL Estimated GFR ML/MIN Glucose (74-106) mg/dL Calcium (8.4-10.2) mg/dL Total Bilirubin (0.2-1.3) mg/dL AST (14-36) U/L ALT (0-35) U/L Alkaline Phosphatase (38-126) U/L Troponin I < 0.012 (0.000-0.034) ng/mL NT-Pro-B Natriuret Pep (<300) pg/mL Serum Total Protein (6.3-8.2) g/dL Albumin (3.5-5.0) g/dL Influenza Type A Ag NEGATIVE (NEGATIVE) Influenza Type B Ag NEGATIVE (NEGATIVE) RSV (PCR) POSITIVE (NEGATIVE) SARS-CoV-2 (PCR) NEGATIVE (NEGATIVE) 11/04/23 11/04/23 Range/Units 16:00 16:00 WBC 6.1 (4.0-10.5) x10^3/uL RBC 4.03 L (4.1-5.4) x10^6/uL Hgb 11.8 L (12.0-16.0) g/dL Hct 38.0 (35-47) % MCV 94.3 (78-100) fL MCH 29.3 (26-32) pg MCHC 31.1 L (32-36) g/dL RDW 12.0 (11.5-14.0) % Plt Count 213 (150-450) x10^3/uL MPV 10.4 (7.5-11.0) fL Gran % 68.6 H (36.0-66.0) % Immature Gran % (Auto) 0.5 H (0.00-0.4) % Nucleat RBC Rel Count 0.0 (0.00-0.1) % Eos # (Auto) 0.04 (0-0.5) x10^3/uL Immature Gran # (Auto) 0.03 (0.00-0.03) x10^3u/L Absolute Lymphs (auto) 1.65 (1.0-4.6) x10^3/uL Absolute Monos (auto) 0.17 (0.0-1.3) x10^3/uL Absolute Nucleated RBC 0.00 (0.00-0.01) x10^3u/L Lymphocytes % 27.1 (24.0-44.0) % Monocytes % 2.8 (0.0-12.0) % Eosinophils % 0.7 (0.00-5.0) % Basophils % 0.3 (0.0-0.4) % Absolute Granulocytes 4.17 (1.4-6.9) x10^3/uL Basophils # 0.02 (0-0.4) x10^3/uL PT (9.4-12.5) SECONDS INR (0.8-3.0) APTT (25.1-36.5) SECONDS D-Dimer (0.0-0.50) mg/L Sodium 133 L (137-145) mmol/L Potassium 4.8 (3.5-5.1) mmol/L Chloride 102 (98-107) mmol/L Carbon Dioxide 20 L (22-30) mmol/L Anion Gap 16.7 H (5-15) MEQ/L BUN 14 (7-17) mg/dL Creatinine 0.85 (0.52-1.04) mg/dL Estimated GFR 79.4 ML/MIN Glucose 223 H (74-106) mg/dL Calcium 9.4 (8.4-10.2) mg/dL Total Bilirubin 0.40 (0.2-1.3) mg/dL AST 59 H (14-36) U/L ALT 51 H (0-35) U/L Alkaline Phosphatase 146 H (38-126) U/L Troponin I (0.000-0.034) ng/mL NT-Pro-B Natriuret Pep 109 (<300) pg/mL Serum Total Protein 7.8 (6.3-8.2) g/dL Albumin 4.2 (3.5-5.0) g/dL Influenza Type A Ag (NEGATIVE) Influenza Type B Ag (NEGATIVE) RSV (PCR) (NEGATIVE) SARS-CoV-2 (PCR) (NEGATIVE) - Progress Progress Note: 11/04/23 20:42 Nursing note and vital signs reviewed. No food or housing insecurities noted. All lab results reviewed and shared with patient. Chest x-ray result reviewed and shared with patient. DuoNeb with mild improvement. Patient has RSV without any evidence of pneumonia at this time. Patient without evidence of CHF and acute myocardial infarction. 11/04/23 20:43 Patient with good sats and nonlabored respirations during her stay and will be discharged on prednisone 10 mg p.o. twice daily for additional 5 days. Patient vies follow-up with her PCP in 2 to 3 days and return to ER for increasing shortness of breath or chest pain. Counseled pt/family regarding: lab results, diagnosis, need for follow-up, rad results Medical Desision Making - Diagnostic Testing Diagnostic test were ordered, analyzed, and reviewed by me: Yes Radiological Interpretation: Reviewed by me - Risk of complications The pt has a mod risk of morbidity or mortality based on: Need for prescription drug management - Departure Departure Disposition: Home Clinical Impression: RSV (acute bronchiolitis due to respiratory syncytial virus) Condition: Stable Critical Care Time: No Referrals: CAROL ANN ALCARAZ MD [Primary Care Provider] - Follow up/PCP as directed Instructions: Respiratory Syncytial Virus, Adult (DC) Additional Instructions: Continue with your albuterol inhaler and her nebulizer every 4 hours. Prednisone twice a day for 5 more days. Finish your Z-Gustavo. Best to be quarantined for a few days. Return to ER for increasing shortness of breath, chest pain, or persistent temperature greater 100.5. Prescriptions: Prednisone 10 mg [Deltasone 10 mg] 10 mg PO BID #10 tablet
[2023-11-04 16:01] LABS: Absolute Neutrophil Ct (ANC) 4.17 x10^3/uL (1.4-6.9); BASOPHIL % 0.3 % (0.0-0.4); Basophil (Absolute #) 0.02 x10^3/uL (0-0.4); Eosinophil % 0.7 % (0.00-5.0); Eosinophil (Absolute #) 0.04 x10^3/uL (0-0.5); Hemoglobin 11.8 g/dL (12.0-16.0); IMMATURE GRAN # 0.03 x10^3u/L (0.00-0.03); IMMATURE GRAN % 0.5 % (0.00-0.4); Lymphocyte (Absolute #) 1.65 x10^3/uL (1.0-4.6); Lymphocytes % 27.1 % (24.0-44.0); Mean Cell Volume 94.3 fL (78-100); Mean Corpuscular Hemoglobin 29.3 pg (26-32); Mean Corpuscular Hgb Concent. 31.1 g/dL (32-36); Mean Platelet Volume 10.4 fL (7.5-11.0); Monocyte (Absolute #) 0.17 x10^3/uL (0.0-1.3); Monocytes % 2.8 % (0.0-12.0); Neutrophil % 68.6 % (36.0-66.0); Platelet Count 213 x10^3/uL (150-450); Red Blood Count 4.03 x10^6/uL (4.1-5.4); White Blood Count 6.1 x10^3/uL (4.0-10.5)
[2023-11-04 16:11] LABS: INFLUENZA A NEGATIVE (NEGATIVE); INFLUENZA B NEGATIVE (NEGATIVE); SARS-CoV-2 Xpert Express NEGATIVE (NEGATIVE)
[2023-11-04 16:16] LABS: RESPIRATORY SYNCTIAL VIRUS POSITIVE (NEGATIVE)
[2023-11-04 16:17] LABS: D-DIMER QUANTITATIVE 0.35 mg/L (0.0-0.50); INR 0.94 (0.8-3.0); PROTIME 10.3 SECONDS (9.4-12.5); PTT 22.8 SECONDS (25.1-36.5)
--- NOTE | 2023-11-04 16:27 | XRAY ---
Indication: Cough. Dyspnea. Comparison: July 14, 2022 Portable chest remains inflated and clear. Heart not enlarged. Bony thorax intact again with osteopenia, mild degenerative changes, and new cervical fusion hardware.
[2023-11-04 16:37] LABS: ALBUMIN 4.2 g/dL (3.5-5.0); ANION GAP 16.7 MEQ/L (5-15); BILIRUBIN,TOTAL 0.4 mg/dL (0.2-1.3); Calcium 9.4 mg/dL (8.4-10.2); Creatinine 1 0.85 mg/dL (0.52-1.04); EST GLOMERULAR FILTRATION RATE 79.4 ML/MIN; Potassium 4.8 mmol/L (3.5-5.1); Total Protein 7.8 g/dL (6.3-8.2)
[2023-11-04 17:06] VITALS: BP 120/64; PULSE 92; RESP 21
[2023-11-04 17:07] VITALS: O2SAT 97
== END 2023-11-04 17:13 | disposition home or self-care (01) ==
LOC: ED 14:53
DX: J21.0 Acute bronchiolitis due to respiratory syncytial virus (principal); R05.1 Acute cough; R50.9 Fever, unspecified; R11.0 Nausea; R07.9 Chest pain, unspecified; E78.5 Hyperlipidemia, unspecified; I10 Essential (primary) hypertension; E11.42 Type 2 diabetes mellitus with diabetic polyneuropathy; Z79.52 Long term (current) use of systemic steroids; Z79.84 Long term (current) use of oral hypoglycemic drugs; Z79.4 Long term (current) use of insulin; Z79.85 Long-term (current) use of injectable non-insulin antidiabetic drugs; Z79.899 Other long term (current) drug therapy
CPT/HCPCS: 0241U; 36000; 36415; 71045; 80053; 83880; 84484; 85025; 85379; 85610; 85730; 93005; 94640; 99284; A9270-GY

== ENCOUNTER 2023-12-22 13:59 | Emergency (ER) | payer MEDICARE ==
--- NOTE | 2023-12-22 14:06 | ERPHSYRPT ---
- History of Present Illness Time Seen by Provider: 12/22/23 14:06 Source: patient, family Exam Limitations: no limitations Physician History: This is an obese 58-year-old white female patient of Dr. Alcaraz and claims processor Dr. Agrawal who presents to the emergency department with worsening shortness of breath over 4 days. She denies chest pain. Patient is a former smoker of cigarettes. She has a chronic mild cough. This has not changed. She has not had a fever. Patient has no abdominal pain. She does have some arthralgias myalgias and a mild headache. She has no known exposures to individuals with similar symptoms or who have been diagnosed with flu's. Patient does have a history of asthma, COPD, hyperlipidemia, peripheral neuropathy, seizure disorder, type 2 diabetes, gastroesophageal reflux disease, anxiety and degenerative disc disease. In the distant past she has had an angioplasty performed at the time of a cardiac catheterization. Timing/Duration: day(s) (4), worse Severity of Dyspnea-Max: mild Severity of Dyspnea-Current: mild (Moderate) Possible Cause: occasional episodes Associated Symptoms: cough, No chest pain/discomfort, No fever (Filed), No lightheadedness, No leg swelling, No painful breathing, No productive cough Allergies/Adverse Reactions: morphine Allergy (Intermediate, Verified 12/22/23 14:24) levofloxacin [From Levaquin] Adverse Reaction (Intermediate, Verified 12/22/23 14:24) PT STATES ONE TIME SHE HAD THIS MEDICINE AND HER VEINS ALL TURNED BRIGHT RED Home Medications: Meclizine HCl 25 mg [Antivert 25 mg] 25 mg PO BID 02/21/18 [History] Ropinirole HCl [Requip] 2 mg PO BID 02/21/18 [History] Gabapentin 300 mg PO TID 07/15/20 [History] Metformin HCl 500 mg [Glucophage 500 MG] 1,000 mg PO BID 07/15/20 [Histor y] Nitroglycerin 0.4 mg Tablet [Nitrostat 0.4 MG Tablet] 0.4 mg SL UD 11/16/20 [History] Pravastatin Sodium 20 mg PO HS 11/16/20 [History] lisinopriL [Lisinopril] 5 mg PO DAILY 02/10/22 [History] modafiniL [Modafinil] 200 mg PO DAILY 02/10/22 [History] Albuterol Sulfate [Albuterol Sulfate Hfa] 2 puff PO Q6H PRN PRN 11/04/23 [History] Fluoxetine HCl 10 mg [Prozac 10 mg] 1 cap PO DAILY 11/04/23 [History] Insulin NPH Human Recom [Novolin N] 50 units SQ DAILY 11/04/23 [History] Metoclopramide HCl 1 tab PO QID 11/04/23 [History] Montelukast Sodium 10 mg [Singulair 10 MG] 1 tab PO DAILY 11/04/23 [History] Semaglutide [Ozempic] 0.25 mg SQ WEEKLY 11/04/23 [History] Hx Tetanus, Diphtheria Vaccination/Date Given: Yes Hx Influenza Vaccination/Date Given: Yes Hx Pneumococcal Vaccination/Date Given: Yes Travel Risk - International Travel Have you traveled outside of the country in past 3 weeks: No - Coronavirus Screening Are you exhibiting any of the following symptoms?: Yes Symptoms: Shortness of Breath, Headaches/Body Aches/Fatigue Close contact with a COVID-19 positive Pt in past 14-21 Days: No - Vaccine Status Have you recieved a Covid-19 vaccination: Yes [employer]: Moderna - Vaccination Dates Date of 2cond Vaccination (if applicable): 11/2021 - Review of Systems Constitutional: No Symptoms Eyes: No Symptoms Ears, Nose, & Throat: No Symptoms Respiratory: Cough, Dyspnea Cardiac: No Symptoms Abdominal/Gastrointestinal: No Symptoms Genitourinary Symptoms: No Symptoms Musculoskeletal: Arthralgias, Myalgias Skin: No Symptoms Neurological: No Symptoms Psychological: No Symptoms Endocrine: No Symptoms Hematologic/Lymphatic: No Symptoms Immunological/Allergic: No Symptoms All Other Systems: Reviewed and Negative - Past Medical History Pertinent Past Medical History: Yes Neurological History: Peripheral Neuropathy, Seizures ENT History: Cataracts Cardiac History: High Cholesterol, Hypertension Respiratory History: Asthma, COPD Endocrine Medical History: Diabetes Type II Musculoskeletal History: Degenerative Disk Disease, Osteoarthritis GI Medical History: Diverticulitis, GERD History: No Pertinent History Psycho-Social History: Anxiety, Depression Female Reproductive Disorders: No Pertinent History Other Medical History: 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 LEAKING HEART VALVE, gastroporesis - Past Surgical History Past Surgical History: Yes Neuro Surgical History: No Pertinent History Cardiac: Angioplasty, Cardiac Catheterization Respiratory: No Pertinent History Gastrointestinal: Cholecystectomy Genitourinary: No Pertinent History Musculoskeletal: No Pertinent History, Orthopedic Surgery Female Surgical History: Tubal Ligation Other Surgical History: HEART CATH, left rotator cuff in oct 2015. "leaky heart valve"; right thumb surgery, neck surgery - Social History Smoking Status: Former smoker How long have you smoked: 6 YEARS Exposure to second hand smoke: No Alcohol Use: None Drug Use: none Patient Lives Alone: No () Significant Family History: no pertinent family hx - Nursing Vital Signs Nursing Vital Signs: Initial Vital Signs Pulse Rate 76 12/22/23 14:01 Respiratory Rate 17 12/22/23 14:01 Blood Pressure 150/110 12/22/23 14:01 O2 Sat by Pulse Oximetry 96 12/22/23 14:01 Pain Scale Pain Intensity 5 - Physical Exam General Appearance: no apparent distress, alert, anxiety, obese Eye Exam: PERRL/EOMI, eyes nml inspection Ears, Nose, Throat Exam: hearing grossly normal, normal ENT inspection, normal pharynx Neck Exam: normal inspection, non-tender, supple, full range of motion Respiratory Exam: normal breath sounds, lungs clear, airway intact (Patient has some upper airway breath sounds but no stridor. She does not have wheezing), No chest tenderness, No respiratory distress, No wheezing, No stridor Cardiovascular/Chest Exam: normal heart sounds, regular rate/rhythm Abdominal/Gastrointestinal Exam: soft, normal bowel sounds, No tenderness Rectal Exam: not done Extremity Exam: non-tender, normal range of motion, normal inspection, normal capillary refill, no calf tenderness, no pedal edema, pelvis stable Neurologic Exam: alert, oriented x 3, cooperative, floriculture professor II-XII nml as tested, normal mood/affect, nml cerebellar function, nml station & gait, sensation nml Skin Exam: normal color, warm, dry Lymphatic Exam: No adenopathy SpO2 Interpretation: normal O2 Delivery: Room Air - Course Nursing assessment & vital signs reviewed: Yes Ordered Tests: Active Orders 24 hr Category Date Time Status EKG-ER Only STAT Care 12/22/23 14:20 Active IV Insertion STAT Care 12/22/23 14:20 Active Pulse Oximetry (ED) STAT Care 12/22/23 14:20 Active CHEST WITH CONTRAST [CT] Stat Exams 12/22/23 16:12 Completed BLOOD CULTURE Stat Lab 12/22/23 14:56 Received CBC W DIFF Stat Lab 12/22/23 15:09 Completed CMP Stat Lab 12/22/23 15:09 Completed D-DIMER QUANTITATIVE Stat Lab 12/22/23 15:09 Completed MONO SCREEN Stat Lab 12/22/23 Completed NT PRO BNPII Stat Lab 12/22/23 15:09 Completed PROTIME WITH INR Stat Lab 12/22/23 15:09 Completed TROPONIN Q4H Lab 12/22/23 15:09 Completed TROPONIN Q4H Lab 12/22/23 18:30 Ordered TROPONIN Q4H Lab 12/22/23 22:30 Ordered Respiratory Therapy Assessment DAILY RT 12/22/23 14:26 Active Medication Summary Discontinued Medications Generic Name Dose Route Start Last Admin Trade Name Freq PRN Reason Stop Dose Admin Albuterol/Ipratropium 3 ml 12/22/23 14:26 12/22/23 14:26 Ipratropium/Albuterol Sulfate 3 Ml Ampul.Neb IH 12/22/23 14:27 3 ml STAT ONE Administration Albuterol/Ipratropium Confirm 12/22/23 14:25 Ipratropium/Albuterol Sulfate 3 Ml Ampul.Neb Administered 12/22/23 14:26 Dose 3 ml IH .STK-MED ONE Methylprednisolone Sodium 0 mg 12/22/23 14:20 12/22/23 14:49 Succinate 125 mg/ Sterile IV 12/22/23 14:21 125 mg Water 2 ml STAT ONE Administration Methylprednisolone Sodium Succinate Confirm 12/22/23 14:48 Methylprednis Sod Succ 125 Mg/2 Ml Vial Administered 12/22/23 14:49 Dose 125 mg .ROUTE .STK-MED ONE Sterile Water Confirm 12/22/23 14:47 Water For Injection,Sterile 10 Ml Vial Administered 12/22/23 14:48 Dose 10 ml IJ .STK-MED ONE Lab/Rad Data: Laboratory Result Diagrams 12/22/23 15:09 12/22/23 15:09 Laboratory Results 12/22/23 12/22/23 12/22/23 Range/Units Unknown 15:09 15:09 WBC (4.0-10.5) x10^3/uL RBC (4.1-5.4) x10^6/uL Hgb (12.0-16.0) g/dL Hct (35-47) % MCV (78-100) fL MCH (26-32) pg MCHC (32-36) g/dL RDW (11.5-14.0) % Plt Count (150-450) x10^3/uL MPV (7.5-11.0) fL Gran % (36.0-66.0) % Immature Gran % (Auto) (0.00-0.4) % Nucleat RBC Rel Count (0.00-0.1) % Eos # (Auto) (0-0.5) x10^3/uL Immature Gran # (Auto) (0.00-0.03) x10^3u/L Absolute Lymphs (auto) (1.0-4.6) x10^3/uL Absolute Monos (auto) (0.0-1.3) x10^3/uL Absolute Nucleated RBC (0.00-0.01) x10^3u/L Lymphocytes % (24.0-44.0) % Monocytes % (0.0-12.0) % Eosinophils % (0.00-5.0) % Basophils % (0.0-0.4) % Absolute Granulocytes (1.4-6.9) x10^3/uL Basophils # (0-0.4) x10^3/uL PT 10.8 (9.4-12.5) SECONDS INR 0.99 (0.8-3.0) D-Dimer 0.60 H (0.0-0.50) mg/L Sodium (137-145) mmol/L Potassium (3.5-5.1) mmol/L Chloride (98-107) mmol/L Carbon Dioxide (22-30) mmol/L Anion Gap (5-15) MEQ/L BUN (7-17) mg/dL Creatinine (0.52-1.04) mg/dL Estimated GFR ML/MIN Glucose (74-106) mg/dL Calcium (8.4-10.2) mg/dL Total Bilirubin (0.2-1.3) mg/dL AST (14-36) U/L ALT (0-35) U/L Alkaline Phosphatase (38-126) U/L Troponin I < 0.012 (0.000-0.034) ng/mL NT-Pro-B Natriuret Pep (<300) pg/mL Serum Total Protein (6.3-8.2) g/dL Albumin (3.5-5.0) g/dL Monoscreen NEGATIVE (NEGATIVE) Influenza Type A Ag (NEGATIVE) Influenza Type B Ag (NEGATIVE) RSV (PCR) (NEGATIVE) SARS-CoV-2 (PCR) (NEGATIVE) Group A Strep Antibody (NEGATIVE) Slides for Path Review 12/22/23 12/22/23 12/22/23 Range/Units 15:09 15:09 15:00 WBC 10.9 H (4.0-10.5) x10^3/uL RBC 4.06 L (4.1-5.4) x10^6/uL Hgb 12.1 (12.0-16.0) g/dL Hct 38.3 (35-47) % MCV 94.3 (78-100) fL MCH 29.8 (26-32) pg MCHC 31.6 L (32-36) g/dL RDW 12.4 (11.5-14.0) % Plt Count 187 (150-450) x10^3/uL MPV 11.6 H (7.5-11.0) fL Gran % 38.5 (36.0-66.0) % Immature Gran % (Auto) 0.6 H (0.00-0.4) % Nucleat RBC Rel Count 0.0 (0.00-0.1) % Eos # (Auto) 3.34 H (0-0.5) x10^3/uL Immature Gran # (Auto) 0.06 H (0.00-0.03) x10^3u/L Absolute Lymphs (auto) 2.67 (1.0-4.6) x10^3/uL Absolute Monos (auto) 0.51 (0.0-1.3) x10^3/uL Absolute Nucleated RBC 0.00 (0.00-0.01) x10^3u/L Lymphocytes % 24.6 (24.0-44.0) % Monocytes % 4.7 (0.0-12.0) % Eosinophils % 30.8 H (0.00-5.0) % Basophils % 0.8 (0.0-0.4) % Absolute Granulocytes 4.19 (1.4-6.9) x10^3/uL Basophils # 0.09 (0-0.4) x10^3/uL PT (9.4-12.5) SECONDS INR (0.8-3.0) D-Dimer (0.0-0.50) mg/L Sodium 135 L (137-145) mmol/L Potassium 4.4 (3.5-5.1) mmol/L Chloride 103 (98-107) mmol/L Carbon Dioxide 25 (22-30) mmol/L Anion Gap 10.3 (5-15) MEQ/L BUN 10 (7-17) mg/dL Creatinine 0.76 (0.52-1.04) mg/dL Estimated GFR 90.8 ML/MIN Glucose 118 H (74-106) mg/dL Calcium 9.5 (8.4-10.2) mg/dL Total Bilirubin 0.60 (0.2-1.3) mg/dL AST 39 H (14-36) U/L ALT 32 (0-35) U/L Alkaline Phosphatase 142 H (38-126) U/L Troponin I (0.000-0.034) ng/mL NT-Pro-B Natriuret Pep 102 (<300) pg/mL Serum Total Protein 8.0 (6.3-8.2) g/dL Albumin 4.3 (3.5-5.0) g/dL Monoscreen (NEGATIVE) Influenza Type A Ag (NEGATIVE) Influenza Type B Ag (NEGATIVE) RSV (PCR) (NEGATIVE) SARS-CoV-2 (PCR) (NEGATIVE) Group A Strep Antibody NOT DETECTED (NEGATIVE) Slides for Path Review YES 12/22/23 Range/Units 15:00 WBC (4.0-10.5) x10^3/uL RBC (4.1-5.4) x10^6/uL Hgb (12.0-16.0) g/dL Hct (35-47) % MCV (78-100) fL MCH (26-32) pg MCHC (32-36) g/dL RDW (11.5-14.0) % Plt Count (150-450) x10^3/uL MPV (7.5-11.0) fL Gran % (36.0-66.0) % Immature Gran % (Auto) (0.00-0.4) % Nucleat RBC Rel Count (0.00-0.1) % Eos # (Auto) (0-0.5) x10^3/uL Immature Gran # (Auto) (0.00-0.03) x10^3u/L Absolute Lymphs (auto) (1.0-4.6) x10^3/uL Absolute Monos (auto) (0.0-1.3) x10^3/uL Absolute Nucleated RBC (0.00-0.01) x10^3u/L Lymphocytes % (24.0-44.0) % Monocytes % (0.0-12.0) % Eosinophils % (0.00-5.0) % Basophils % (0.0-0.4) % Absolute Granulocytes (1.4-6.9) x10^3/uL Basophils # (0-0.4) x10^3/uL PT (9.4-12.5) SECONDS INR (0.8-3.0) D-Dimer (0.0-0.50) mg/L Sodium (137-145) mmol/L Potassium (3.5-5.1) mmol/L Chloride (98-107) mmol/L Carbon Dioxide (22-30) mmol/L Anion Gap (5-15) MEQ/L BUN (7-17) mg/dL Creatinine (0.52-1.04) mg/dL Estimated GFR ML/MIN Glucose (74-106) mg/dL Calcium (8.4-10.2) mg/dL Total Bilirubin (0.2-1.3) mg/dL AST (14-36) U/L ALT (0-35) U/L Alkaline Phosphatase (38-126) U/L Troponin I (0.000-0.034) ng/mL NT-Pro-B Natriuret Pep (<300) pg/mL Serum Total Protein (6.3-8.2) g/dL Albumin (3.5-5.0) g/dL Monoscreen (NEGATIVE) Influenza Type A Ag NEGATIVE (NEGATIVE) Influenza Type B Ag NEGATIVE (NEGATIVE) RSV (PCR) NEGATIVE (NEGATIVE) SARS-CoV-2 (PCR) NEGATIVE (NEGATIVE) Group A Strep Antibody (NEGATIVE) Slides for Path Review - Progress Progress: improved Air Movement: good Progress Note: 12/22/23 14:26 This patient's medical issue is 1 of moderate complexity. The level of complexity in the workup performed is based on review of the patient's past medical history, review the patient's medication list, review the patient's drug allergy list, history present illness and physical findings on examination. The workup in this patient includes placement of an intravenous line, infusion of Solu-Medrol intravenously, CBC, CMP, D-dimer, BNP, troponin level, twelve- lead EKG. We will also do viral swabs, monotest and strep swabs. 12/22/23 17:19 I interpreted the patient's lab work. The only significant finding is an elevated D-dimer. The patient has shortness of breath and an elevated D-dimer. We ordered a CT scan of the chest with contrast. The remainder of the laboratory results do not show any acute, or emergent medical issue. CT scan of the chest with contrast was interpreted by the radiologist and I reviewed the impression. This study is negative for pulmonary embolus. There are no new or acute cardiopulmonary abnormalities or findings Blood Culture(s) Obtained: Yes Counseled pt/family regarding: lab results, diagnosis, need for follow-up Medical Desision Making - Diagnostic Testing Diagnostic test were ordered, analyzed, and reviewed by me: Yes Radiological Interpretation: Reviewed by me, Teleradiologist Report - Risk of complications The pt has a mod risk of morbidity or mortality based on: Need for prescription drug management - Departure Departure Disposition: Home Clinical Impression: COPD exacerbation Condition: Stable Critical Care Time: No Referrals: CAROL ANN ALCARAZ MD [Primary Care Provider] - Follow up/PCP as directed Instructions: Chronic Obstructive Pulmonary Disease Additional Instructions: Continue your nebulizer treatments every 4 hours while you are awake for the next 72 hours. Use your breakthrough albuterol inhaler as instructed. Take your medications as prescribed. Call your primary care provider and claims processor tomorrow, 12/23/2023, to make arranges for follow-up appointment for further evaluation management in the next 3 to 5 days. Monitor your blood sugar levels closely while you are taking the prednisone/steroids. Prescriptions: Prednisone 10 mg [Deltasone 10 mg] 10 mg PO TID #12 tablet
[2023-12-22 14:10] VITALS: TEMP 96.8
[2023-12-22] MEDS ORDERED: DUONEB 0.5-3 MG/3 ml Neb IH ONE (14:25)
[2023-12-22] MEDS: DUONEB 0.5-3 MG/3 ml Neb IH ONE (14:26)
[2023-12-22] MEDS ORDERED: Sterile H2O 10 ml IJ ONE (14:47)
[2023-12-22] MEDS ORDERED: solu-MEDROL ONE (14:48)
[2023-12-22] MEDS: solu-MEDROL 125 MG, Sterile H2O 10 ml 2 ML IV ONE ×2 (14:49)
[2023-12-22 15:16] LABS: Absolute Neutrophil Ct (ANC) 4.19 x10^3/uL (1.4-6.9); BASOPHIL % 0.8 % (0.0-0.4); Basophil (Absolute #) 0.09 x10^3/uL (0-0.4); Eosinophil % 30.8 % (0.00-5.0); Eosinophil (Absolute #) 3.34 x10^3/uL (0-0.5); Hematocrit 38.3 % (35-47); Hemoglobin 12.1 g/dL (12.0-16.0); IMMATURE GRAN # 0.06 x10^3u/L (0.00-0.03); IMMATURE GRAN % 0.6 % (0.00-0.4); Lymphocyte (Absolute #) 2.67 x10^3/uL (1.0-4.6); Lymphocytes % 24.6 % (24.0-44.0); Mean Cell Volume 94.3 fL (78-100); Mean Corpuscular Hemoglobin 29.8 pg (26-32); Mean Corpuscular Hgb Concent. 31.6 g/dL (32-36); Mean Platelet Volume 11.6 fL (7.5-11.0); Monocyte (Absolute #) 0.51 x10^3/uL (0.0-1.3); Monocytes % 4.7 % (0.0-12.0); Neutrophil % 38.5 % (36.0-66.0); Platelet Count 187 x10^3/uL (150-450); Red Blood Count 4.06 x10^6/uL (4.1-5.4); Red Cell Distribution Width 12.4 % (11.5-14.0); White Blood Count 10.9 x10^3/uL (4.0-10.5)
[2023-12-22 15:36] LABS: ALBUMIN 4.3 g/dL (3.5-5.0); ANION GAP 10.3 MEQ/L (5-15); BILIRUBIN,TOTAL 0.6 mg/dL (0.2-1.3); Calcium 9.5 mg/dL (8.4-10.2); Creatinine 1 0.76 mg/dL (0.52-1.04); EST GLOMERULAR FILTRATION RATE 90.8 ML/MIN; INR 0.99 (0.8-3.0); PROTIME 10.8 SECONDS (9.4-12.5); Potassium 4.4 mmol/L (3.5-5.1)
[2023-12-22 15:39] LABS: Slide Review 1 YES
[2023-12-22 15:41] LABS: D-DIMER QUANTITATIVE 0.6 mg/L (0.0-0.50)
[2023-12-22 15:47] LABS: INFLUENZA A NEGATIVE (NEGATIVE); INFLUENZA B NEGATIVE (NEGATIVE); RESPIRATORY SYNCTIAL VIRUS NEGATIVE (NEGATIVE); SARS-CoV-2 Xpert Express NEGATIVE (NEGATIVE)
--- NOTE | 2023-12-22 17:17 | XRAY ---
Indication: Short of breath. Elevated dimer. COPD. Multiple contiguous axial images obtained through the chest using 80 cc Isovue 370 contrast and PE protocol. Comparison: July 27, 2022 Adequate opacification of the pulmonary arteries to include the lobar and segmental branches. No pulmonary embolus. Heart not enlarged. Aorta is normal in course and caliber. No pathologic mediastinal/hilar lymphadenopathy. Lungs demonstrates minimal bilateral dependent atelectasis. No suspicious pulmonary mass/nodule, infiltrate, effusion, or pneumothorax. Bony thorax intact again with mild degenerative changes throughout the spine. New incompletely visualized lower cervical fusion hardware. Limited upper abdomen again demonstrates fatty liver and cholecystectomy. Impression: 1. Continued negative pulmonary embolus. No new/acute cardiopulmonary abnormalities. 2. Incidental fatty liver and chronic bony findings.
[2023-12-22 17:40] VITALS: PULSE 95; RESP 23; O2SAT 94
[2023-12-22 17:47] VITALS: BP 119/97
== END 2023-12-22 17:47 | disposition home or self-care (01) ==
LOC: ED 13:59
DX: J44.1 Chronic obstructive pulmonary disease with (acute) exacerbation (principal); R06.02 Shortness of breath; M79.10 Myalgia, unspecified site; R51.9 Headache, unspecified; E78.5 Hyperlipidemia, unspecified; E11.42 Type 2 diabetes mellitus with diabetic polyneuropathy; Z79.84 Long term (current) use of oral hypoglycemic drugs; Z79.4 Long term (current) use of insulin; Z79.85 Long-term (current) use of injectable non-insulin antidiabetic drugs; Z79.52 Long term (current) use of systemic steroids; Z79.899 Other long term (current) drug therapy; Z20.828 Contact with and (suspected) exposure to other viral communicable diseases; Z98.61 Coronary angioplasty status
CPT/HCPCS: 0241U; 36415; 71260; 80053; 83880; 84484; 85025; 85379; 85610; 86308; 87040; 87651; 93005; 94640; 94760; 96374; 99284; J2930; A9270-GY

== ENCOUNTER 2024-06-17 03:18 | Emergency (ER) | payer MEDICARE ==
[2024-06-17] MEDS ORDERED: XYLOCAINE 1% HCL 20 ML MDV IJ ONE (03:19)
[2024-06-17 03:36] VITALS: TEMP 97.8
[2024-06-17] MEDS ORDERED: Hydromorphone 1 mg/ml Injection ONE ×2 (03:54→06:39)
[2024-06-17] MEDS ORDERED: Rocephin 1000 MG INJ ONE (03:54)
--- NOTE | 2024-06-17 03:55 | ERPHSYRPT ---
- History of Present Illness Time Seen by Provider: 06/17/24 03:49 Source: patient, family Exam Limitations: no limitations Patient Subjective Stated Complaint: toothache, facial swelling Triage Nursing Assessment: pt ambulatory to bed by self with steady gait, pt alert and oriented x3, pt presents with L upper toothache and L sided facial swelling that radiates to the L eye Physician History: pt has dental problems and saw oral surgeon but cannot have the surgery for another week and has swelling now from dental abcess left upper canine - percussion reproduces pain exactly. The lower jaw and digastric triangle is all supple and nontender and the swallowing is ok and no stridor or wheezes. the vision is 20/20 and no actual eye erythema or involvement just the cheek below the eye, and to lower eylid with mild erythema and swelling. No meningismus. No rash. No N or V. SHe can tolerate dialusis OK in past. Discussed risks/benefits of CT and tx with rocephin, augmentin, dilaudid, with pt and available family and they wish to proceed so these are ordered. results discussed with pt and family. Timing/Duration: gradual onset, this morning Severity: moderate ENT Location: facial, dental Prearrival Treatment: over the counter meds Associated Symptoms: facial pain/swelling, tooth pain, No drooling, No headache, No jaw pain, No nasal congestion/drainage, No sore throat, No difficulty swallowing, No voice change Allergies/Adverse Reactions: morphine Allergy (Intermediate, Verified 06/17/24 03:27) levofloxacin [From Levaquin] Adverse Reaction (Intermediate, Verified 06/17/24 03:27) PT STATES ONE TIME SHE HAD THIS MEDICINE AND HER VEINS ALL TURNED BRIGHT RED Home Medications: Meclizine HCl 25 mg [Antivert 25 mg] 25 mg PO BID 02/21/18 [History] Ropinirole HCl [Requip] 2 mg PO BID 02/21/18 [History] Gabapentin 300 mg PO TID 07/15/20 [History] Metformin HCl 500 mg [Glucophage 500 MG] 1,000 mg PO BID 07/15/20 [History] Pravastatin Sodium 20 mg PO HS 11/16/20 [History] lisinopriL [Lisinopril] 5 mg PO DAILY 02/10/22 [History] modafiniL [Modafinil] 200 mg PO DAILY 02/10/22 [History] Albuterol Sulfate [Albuterol Sulfate Hfa] 2 puff PO Q6H PRN PRN 11/04/23 [History] Insulin NPH Human Recom [Novolin N] 100 units SQ DAILY 11/04/23 [History] Metoclopramide HCl 1 tab PO QID 11/04/23 [History] Montelukast Sodium 10 mg [Singulair 10 MG] 1 tab PO DAILY 11/04/23 [History] Aspirin EC 81 mg [Ecotrin 81 mg] 81 mg PO DAILY 06/17/24 [History] Fluticasone Propion/Salmeterol [Wixela 250-50 Inhub] 1 puff IH BID 06/17/24 [History] Omeprazole 20 mg PO BID 06/17/24 [History] carvediloL [Carvedilol] 3 tab PO BID 06/17/24 [History] Hx Tetanus, Diphtheria Vaccination/Date Given: Yes Hx Influenza Vaccination/Date Given: Yes Hx Pneumococcal Vaccination/Date Given: Yes Travel Risk - International Travel Have you traveled outside of the country in past 3 weeks: No - Emerging Infectious Disease Are you exhibiting symptoms associated with any current EIDs: No - Review of Systems Constitutional: No Fever, No Chills Eyes: No Symptoms Ears, Nose, & Throat: No Symptoms, Other (dental pain left upper) Respiratory: No Cough, No Dyspnea Cardiac: No Chest Pain, No Edema, No Syncope Abdominal/Gastrointestinal: No Abdominal Pain, No Nausea, No Vomiting, No Diarrhea Genitourinary Symptoms: No Dysuria Musculoskeletal: No Back Pain, No Neck Pain Skin: No Rash Neurological: No Dizziness, No Focal Weakness, No Sensory Changes Psychological: No Symptoms Endocrine: No Symptoms Hematologic/Lymphatic: No Symptoms Immunological/Allergic: No Symptoms All Other Systems: Reviewed and Negative - Past Medical History Pertinent Past Medical History: Yes Neurological History: Peripheral Neuropathy, Seizures ENT History: Cataracts Cardiac History: High Cholesterol, Hypertension Respiratory History: Asthma, COPD Endocrine Medical History: Diabetes Type II Musculoskeletal History: Degenerative Disk Disease, Osteoarthritis GI Medical History: Diverticulitis, GERD History: No Pertinent History Psycho-Social History: Anxiety, Depression Female Reproductive Disorders: No Pertinent History Other Medical History: 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 LEAKING HEART VALVE, gastroporesis - Past Surgical History Past Surgical History: Yes Neuro Surgical History: No Pertinent History Cardiac: Angioplasty, Cardiac Catheterization Respiratory: No Pertinent History Gastrointestinal: Cholecystectomy Genitourinary: No Pertinent History Musculoskeletal: No Pertinent History, Orthopedic Surgery Female Surgical History: Tubal Ligation Other Surgical History: left rotator cuff in oct 2015. "leaky heart valve"; right thumb surgery, neck surgery Significant Family History: no pertinent family hx - Social History Smoking Status: Former smoker How long have you smoked: 6 YEARS Exposure to second hand smoke: No Alcohol Use: None Drug Use: none Patient Lives Alone: No () - Social Determinants of Health Will the patient participate in the screening: Yes Do you worry about a steady place to live?: No Do you have any problems with any of the following?: No known problems In the past 12 months,have you had to go without utilities?: No Transportation Issues: No Has anyone in your support network made you feel unsafe?: No Have you or anyone in your house had to go without enough: No - Nursing Vital Signs Nursing Vital Signs: Initial Vital Signs Temperature 97.8 F 06/17/24 03:29 Pulse Rate 91 H 06/17/24 03:29 Respiratory Rate 18 06/17/24 03:29 Blood Pressure 148/81 06/17/24 03:29 O2 Sat by Pulse Oximetry 97 06/17/24 03:29 Pain Scale Pain Intensity 8 - Physical Exam General Appearance: no apparent distress, alert Eye Exam: bilateral eye: normal inspection, PERRL, EOMI Ear Exam: bilateral ear: auricle normal, canal normal, TM normal Nasal Exam: normal inspection, No sinus tenderness Throat Exam: pharynx normal, dental tenderness, maxillary swelling, moist mucus membranes, No excessive drooling, No mandibular swelling, No pharynx swelling, No pharynx tenderness, No tongue swollen, No tonsillar exudate, No trismus, No uvula swelling, No voice changes Neck Exam: normal inspection, non-tender, supple, full range of motion, trachea midline Cardiovascular/Respiratory Exam: chest non-tender, normal breath sounds, regular rate/rhythm, heart sounds normal Abdominal Exam: non-tender, soft Neurologic Exam: alert, oriented x 3, sensation nml, No motor deficits Skin Exam: normal color, warm, dry SpO2 Interpretation: normal SpO2: 97 O2 Delivery: Room Air - Course Nursing assessment & vital signs reviewed: Yes - CT Exams Maxillofacial Bones CT Interpretation: Tele-radiologist Report, Other (bilateral dental abscesses - no airway, orbit, or sinus involvement yet. ) Ordered Tests: Active Orders 24 hr Category Date Time Status FACIAL BONES WO CONTRAST [CT] Stat Exams 06/17/24 03:45 Completed Medication Summary Discontinued Medications Generic Name Dose Route Start Last Admin Trade Name Curry PRN Reason Stop Dose Admin Ceftriaxone Sodium 1,000 mg 06/17/24 03:47 06/17/24 04:01 Ceftriaxone Sodium 1000 Mg Inj Vial IM 06/17/24 03:48 1,000 mg STAT ONE Administration Ceftriaxone Sodium Confirm 06/17/24 03:54 Ceftriaxone Sodium 1000 Mg Inj Vial Administered 06/17/24 03:55 Dose 1,000 mg .ROUTE .STK-MED ONE Hydromorphone HCl 1 mg 06/17/24 03:48 06/17/24 04:01 Hydromorphone 1 Mg/1ml Inj IM 06/17/24 03:49 1 mg STAT ONE Administration Hydromorphone HCl Confirm 06/17/24 03:54 Hydromorphone 1 Mg/1ml Inj Administered 06/17/24 03:55 Dose 1 mg .ROUTE .STK-MED ONE - Progress Progress: improved, re-examined Progress Note: 06/17/24 06:14 discussed findings with pt and risks/benefits and she wishes outpt trial of AB and f/u to her planned oral surgeons, today, rather than transfer or admission and has the capacity to make this choice. 06/17/24 06:23 Counseled pt/family regarding: diagnosis, need for follow-up, rad results Medical Desision Making - Independent Historian Additional History obtained from: Family - Discussion of managment Reviewed:: Test results, Need for additional workup Agreed on:: Treatment plan, need for follow-up - Diagnostic Testing Diagnostic test were ordered, analyzed, and reviewed by me: Yes Radiological Interpretation: Teleradiologist Report - Risk of complications The pt has a mod risk of morbidity or mortality based on: Need for prescription drug management - Departure Departure Disposition: Home Clinical Impression: Dental abscess Condition: Good Critical Care Time: No Referrals: CAROL ANN ALCARAZ MD [Primary Care Provider] - Follow up/PCP as directed Instructions: Tooth Abscess (DC) Additional Instructions: Contact your Oral Surgeon today for immediate intervention IR[place] - return meantime if not continuing to improve, short of breath, trouble swollowing, increased swelling increased pain, headache, vomiting, or other symptoms of concern. Prescriptions: Amox Tr/Potass Clav. 875 mg [Augmentin 875-125 Tablet] 875 mg PO BID #20 tablet
[2024-06-17] MEDS: Rocephin 1000 MG INJ IM ONE (04:01)
[2024-06-17] MEDS: Hydromorphone 1 mg/ml Injection IM ONE ×2 (04:01→06:43)
--- NOTE | 2024-06-17 05:13 | XRAY ---
CLINICAL HISTORY: dental abscess pain COMPARISON: - TECHNIQUE: Computed tomography of the orbits/face was performed without intravenous contrast. Contiguous axial images were obtained. Reformatted coronal and sagittal images were also reviewed. CT scan was performed according to ALARA (as low as reasonably achievable). ? FINDINGS: Ill-defined lytic lesion is seen in the anterior aspect of the left hemimaxilla involving the alveolar socket of the second incissor teeth with erosion of the cortex and associated soft tissue component in the upper buccal mucosa. The lesion measures around 1.4 x 2.1 x 2.0 cm (CC x TR x AP). Similar lesion is also noted around the right upper incisor with lytic lesion in the maxilla. Pre maxillary fat stranding is seen. Left maxillary sinusitis is seen Deviated nasal septum to the left side is seen The globes, optic nerves, extraocular muscles and retro-orbital fat are grossly unremarkable. Reformatted imaging demonstrates the intact roof and floor of the orbits. Included portions of the mandible are intact. The included intracranial substances and airway are unremarkable. IMPRESSION: 1. Ill-defined lytic lesionin the anterior aspect of the right and left hemimaxilla involving the alveolar socket of the second incissor teeth with erosion of the cortex and associated soft tissue component in the upper buccal mucosa with premaxillary fat stranding , likely to suggest infective etiology (abscess ). FNAC of the lesion is advised Electronically Signed by: Froy Hawley MD. (06/17/2024 05:08:43 EDT)
[2024-06-17 06:21] VITALS: RESP 16
[2024-06-17 06:23] VITALS: O2SAT 97
[2024-06-17] MEDS ORDERED: NORCO 10-325 MG ONE (06:39)
[2024-06-17] MEDS: NORCO 10-325 MG PO PRN ×2 (06:42)
[2024-06-17 06:51] VITALS: BP 137/90; PULSE 85
== END 2024-06-17 06:53 | disposition home or self-care (01) ==
LOC: ED 03:18
DX: K04.7 Periapical abscess without sinus (principal); E78.5 Hyperlipidemia, unspecified; I10 Essential (primary) hypertension; E11.42 Type 2 diabetes mellitus with diabetic polyneuropathy; Z79.84 Long term (current) use of oral hypoglycemic drugs; Z79.4 Long term (current) use of insulin; Z79.899 Other long term (current) drug therapy
CPT/HCPCS: 70486; 96372; 99284; J0696; J1170; A9270-GY

== ENCOUNTER 2024-09-29 08:55 | Emergency (ER) | payer MEDICARE ==
[2024-09-29 09:22] VITALS: TEMP 96.9
--- NOTE | 2024-09-29 09:34 | ERPHSYRPT ---
- History of Present Illness Time Seen by Provider: 09/29/24 09:31 Source: patient, family Exam Limitations: no limitations Patient Subjective Stated Complaint: Pt woke this morning and had a seizure but landed on the bed and then had another one approx 1 hour later while she was sitting on the edge of her bed and landed on her right knee, pt has not had a seizure for 8 months, pt does not take meds for it Triage Nursing Assessment: Pt brought to the ER by her , hypertensive, rates head pain as 10/10 and knee pain as 6/10, right knee is red, no swelling noted, pt states that she feels like there is pressure in her head and her right eye is painful, pt doesn't feel like she injured her head during the seizure due to having a headache for several days but is worse today, pulses normal, skin n/w/d, no difficulty breathing, dizziness and unable to stand on her own Physician History: Pt woke this morning and had a seizure but landed on the bed and then had another one approx 1 hour later while she was sitting on the edge of her bed and landed on her right knee, pt has not had a seizure for 8 months, pt does not take meds for it Pt brought to the ER by her , hypertensive, rates head pain as 10/10 and knee pain as 6/10, right knee is red, no swelling noted, pt states that she feels like there is pressure in her head and her right eye is painful, pt doesn't feel like she injured her head during the seizure due to having a headache for several days but is worse today, no difficulty breathing, dizziness and unable to stand on her own Timing/Duration: today Severity: mild Associated Symptoms: headaches, seizure, weakness Allergies/Adverse Reactions: morphine Allergy (Intermediate, Verified 09/29/24 09:22) levofloxacin [From Levaquin] Adverse Reaction (Intermediate, Verified 09/29/24 09:22) PT STATES ONE TIME SHE HAD THIS MEDICINE AND HER VEINS ALL TURNED BRIGHT RED Home Medications: Meclizine HCl 25 mg [Antivert 25 mg] 25 mg PO BID 02/21/18 [History] Ropinirole HCl [Requip] 2 mg PO BID 02/21/18 [History] Gabapentin 300 mg PO TID 07/15/20 [History] Metformin HCl 500 mg [Glucophage 500 MG] 1,000 mg PO BID 07/15/20 [History] Pravastatin Sodium 20 mg PO HS 11/16/20 [History] lisinopriL [Lisinopril] 5 mg PO DAILY 02/10/22 [History] modafiniL [Modafinil] 200 mg PO DAILY 02/10/22 [History] Albuterol Sulfate [Albuterol Sulfate Hfa] 2 puff PO Q6H PRN PRN 11/04/23 [History] Insulin NPH Human Recom [Novolin N] 100 units SQ DAILY 11/04/23 [History] Metoclopramide HCl 5 mg PO QID 11/04/23 [History] Montelukast Sodium 10 mg [Singulair 10 MG] 1 tab PO DAILY 11/04/23 [History] Aspirin EC 81 mg [Ecotrin 81 mg] 81 mg PO DAILY 06/17/24 [History] Fluticasone Propion/Salmeterol [Wixela 250-50 Inhub] 1 puff IH BID 06/17/24 [Hi story] Omeprazole 20 mg PO BID 06/17/24 [History] carvediloL [Carvedilol] 18.75 mg PO BID 06/17/24 [History] Albuterol 2.5 mg/3 ml Neb [Proventil 2.5 mg/3 ml Neb] 3 ml IH Q6H 09/29/24 [History] Hx Tetanus, Diphtheria Vaccination/Date Given: Yes Hx Influenza Vaccination/Date Given: Yes Hx Pneumococcal Vaccination/Date Given: Yes Travel Risk - International Travel Have you traveled outside of the country in past 3 weeks: No - Emerging Infectious Disease Are you exhibiting symptoms associated with any current EIDs: No - Review of Systems Constitutional: Weakness, No Fever, No Chills Eyes: No Symptoms Ears, Nose, & Throat: No Symptoms Respiratory: No Cough, No Dyspnea Cardiac: No Chest Pain, No Edema, No Syncope Abdominal/Gastrointestinal: No Abdominal Pain, No Nausea, No Vomiting, No Diarrhea Genitourinary Symptoms: No Dysuria Musculoskeletal: Neck Pain, Fall, No Back Pain, No Joint Redness Skin: No Rash Neurological: No Dizziness, No Focal Weakness, No Sensory Changes Psychological: No Symptoms Endocrine: No Symptoms Hematologic/Lymphatic: No Symptoms Immunological/Allergic: No Symptoms All Other Systems: Reviewed and Negative - Past Medical History Pertinent Past Medical History: Yes Neurological History: Peripheral Neuropathy, Seizures ENT History: Cataracts Cardiac History: High Cholesterol, Hypertension Respiratory History: Asthma, COPD Endocrine Medical History: Diabetes Type II Musculoskeletal History: Degenerative Disk Disease, Osteoarthritis GI Medical History: Diverticulitis, GERD History: No Pertinent History Psycho-Social History: Anxiety, Depression Female Reproductive Disorders: No Pertinent History Other Medical History: 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 LEAKING HEART VALVE, gastroporesis - Past Surgical History Past Surgical History: Yes Neuro Surgical History: No Pertinent History Cardiac: Angioplasty, Cardiac Catheterization Respiratory: No Pertinent History Gastrointestinal: Cholecystectomy Genitourinary: No Pertinent History Musculoskeletal: No Pertinent History, Orthopedic Surgery Female Surgical History: Tubal Ligation Other Surgical History: left rotator cuff in oct 2015. "leaky heart valve"; right thumb surgery, neck surgery Significant Family History: no pertinent family hx - Social History Smoking Status: Former smoker How long have you smoked: 6 YEARS Exposure to second hand smoke: No Alcohol Use: None Drug Use: none Patient Lives Alone: No () - Social Determinants of Health Will the patient participate in the screening: Yes Do you worry about a steady place to live?: No Do you have any problems with any of the following?: No known problems In the past 12 months,have you had to go without utilities?: No Transportation Issues: No Has anyone in your support network made you feel unsafe?: No Have you or anyone in your house had to go without enough: No - Nursing Vital Signs Nursing Vital Signs: Initial Vital Signs Temperature 96.9 F 09/29/24 09:10 Pulse Rate 90 09/29/24 09:10 Respiratory Rate 16 09/29/24 09:10 Blood Pressure 150/97 09/29/24 09:10 O2 Sat by Pulse Oximetry 97 09/29/24 09:10 Pain Scale Pain Intensity 10 - Physical Exam General Appearance: no apparent distress, alert Eye Exam: PERRL/EOMI, eyes nml inspection Ears, Nose, Throat Exam: normal ENT inspection, TMs normal, pharynx normal, moist mucous membranes Neck Exam: normal inspection, non-tender, supple, full range of motion Respiratory Exam: normal breath sounds, lungs clear, No respiratory distress Cardiovascular Exam: regular rate/rhythm, normal heart sounds, normal peripheral pulses Gastrointestinal/Abdomen Exam: soft, normal bowel sounds, No tenderness, No mass Back Exam: normal inspection, normal range of motion, No CVA tenderness, No vertebral tenderness Extremity Exam: normal inspection, normal range of motion, pelvis stable Neurologic Exam: alert, oriented x 3, cooperative, normal mood/affect, nml cerebellar function, nml station & gait, sensation nml, No motor deficits Skin Exam: normal color, warm, dry, No rash Lymphatic Exam: No adenopathy SpO2 Interpretation: normal SpO2: 97 O2 Delivery: Room Air - Course Nursing assessment & vital signs reviewed: Yes EKG Interpreted by Me: Sinus Rhythm Rhythm Strip: Normal Sinus Rhythm - Radiology Exams Chest X-ray Interpretation: Interpreted by me, Reviewed by me - CT Exams Head CT Interpretation: Tele-radiologist Report Ordered Tests: Active Orders 24 hr Category Date Time Status EKG-ER Only STAT Care 09/29/24 09:25 Active EKG-ER Only STAT Care 09/29/24 09:27 Active IV Insertion STAT Care 09/29/24 09:25 Active CHEST 1 VIEW (PORTABLE) Stat Exams 09/29/24 09:26 Taken HEAD WITHOUT CONTRAST [CT] Stat Exams 09/29/24 09:26 Completed CBC W DIFF Stat Lab 09/29/24 09:25 Completed CMP Stat Lab 09/29/24 10:45 Completed MAGNESIUM Stat Lab 09/29/24 10:45 Completed POCT GLUCOSE Stat Lab 09/29/24 09:29 Completed TROPONIN Q4H Lab 09/29/24 10:45 Completed UA W/RFX UR CULTURE Stat Lab 09/29/24 11:20 Completed Medication Summary Generic Name Dose Route Start Last Admin Trade Name Freq PRN Reason Stop Dose Admin Magnesium Oxide 400 mg 09/30/24 11:42 09/29/24 11:51 Magnesium Oxide 400 Mg Tablet PO 09/30/24 11:43 400 mg DAILY ONE Administration Discontinued Medications Generic Name Dose Route Start Last Admin Trade Name Freq PRN Reason Stop Dose Admin Magnesium Oxide Confirm 09/29/24 11:49 Magnesium Oxide 400 Mg Tablet Administered 09/29/24 11:50 Dose 400 mg .ROUTE .STK-MED ONE Ondansetron HCl 4 mg 09/29/24 11:14 09/29/24 11:16 Zofran 4 Mg/Udtablet Orally Disintegrating PO 09/29/24 11:15 4 mg STAT ONE Administration Ondansetron HCl Confirm 09/29/24 11:15 Zofran 4 Mg/Udtablet Orally Disintegrating Administered 09/29/24 11:16 Dose 4 mg .ROUTE .STK-MED ONE Lab/Rad Data: Laboratory Result Diagrams 09/29/24 09:25 09/29/24 10:45 Laboratory Results 09/29/24 09/29/24 09/29/24 Range/Units 11:20 10:45 09:29 WBC (3.98-10.04) x10^3/uL RBC (3.93-5.22) x10^6/uL Hgb (11.2-15.7) g/dL Hct (34.1-44.9) % MCV (79.4-94.8) fL MCH (25.6-32.2) pg MCHC (32.2-35.5) g/dL RDW (11.7-14.4) % Plt Count (182-369) x10^3/uL MPV (9.4-12.3) fL Gran % (34.0-71.1) % Immature Gran % (Auto) (0.001-0.429) % Nucleat RBC Rel Count (0.00-0.2) % Eos # (Auto) (0.04-0.36) x10^3/uL Immature Gran # (Auto) (0.001-0.031) x10^3u/L Absolute Lymphs (auto) (1.18-3.74) x10^3/uL Absolute Monos (auto) (0.24-0.86) x10^3/uL Absolute Nucleated RBC (0.00-0.012) x10^3u/L Lymphocytes % (19.3-51.7) % Monocytes % (4.7-12.5) % Eosinophils % (0.7-5.8) % Basophils % (0.1-1.2) % Absolute Granulocytes (1.56-6.13) x10^3/uL Basophils # (0.01-0.08) x10^3/uL Sodium 134 L (135-145) mmol/L Potassium 5.1 (3.5-5.1) mmol/L Chloride 104 (98-107) mmol/L Carbon Dioxide 19 L (22-30) mmol/L Anion Gap 16.5 H (5-15) MEQ/L BUN 15 (7-17) mg/dL Creatinine 0.83 (0.52-1.04) mg/dL Estimated GFR 81.2 ML/MIN Glucose 186 H (74-106) mg/dL POC Glucometer 184 H (74 to 106) mg/dL Calcium 9.1 (8.4-10.2) mg/dL Magnesium 1.5 L (1.6-2.3) mg/dL Total Bilirubin 0.40 (0.2-1.3) mg/dL AST 70 H (14-36) U/L ALT 51 H (0-35) U/L Alkaline Phosphatase 158 H (38-126) U/L Troponin I < 0.012 (0.000-0.033) ng/mL Serum Total Protein 7.8 (6.3-8.2) g/dL Albumin 3.9 (3.5-5.0) g/dL Urine Color Yellow (Yellow) Urine Appearance Clear (Clear) Urine pH 5.5 (4.6-8.0) Ur Specific [place] 1.015 (1.005-1.030) Urine Protein Negative (Negative) Urine Glucose (UA) Negative (Negative) mg/dL Urine Ketones Negative (Negative) Urine Blood Negative (Negative) Urine Nitrite Negative (Negative) Urine Bilirubin Negative (Negative) Urine Urobilinogen 0.2 (0.2) mg/dL Ur Leukocyte Esterase Negative (Negative) U Hyaline Cast (Auto) 3-5 A (0-2) /LPF Urine Microscopic RBC 0-2 (0-5) /HPF Urine Microscopic WBC 0-2 (0-5) /HPF Ur Epithelial Cells None Seen (None Seen) /HPF Urine Bacteria Rare A (None Seen) /HPF Urine Culture Reflexed NO (NO) 09/29/24 Range/Units 09:25 WBC 5.0 (3.98-10.04) x10^3/uL RBC 3.78 L (3.93-5.22) x10^6/uL Hgb 10.8 L (11.2-15.7) g/dL Hct 34.9 (34.1-44.9) % MCV 92.3 (79.4-94.8) fL MCH 28.6 (25.6-32.2) pg MCHC 30.9 L (32.2-35.5) g/dL RDW 12.9 (11.7-14.4) % Plt Count 147 L (182-369) x10^3/uL MPV 12.2 (9.4-12.3) fL Gran % 59.3 (34.0-71.1) % Immature Gran % (Auto) 0.4 (0.001-0.429) % Nucleat RBC Rel Count 0.0 (0.00-0.2) % Eos # (Auto) 0.18 (0.04-0.36) x10^3/uL Immature Gran # (Auto) 0.02 (0.001-0.031) x10^3u/L Absolute Lymphs (auto) 1.44 (1.18-3.74) x10^3/uL Absolute Monos (auto) 0.36 (0.24-0.86) x10^3/uL Absolute Nucleated RBC 0.00 (0.00-0.012) x10^3u/L Lymphocytes % 28.9 (19.3-51.7) % Monocytes % 7.2 (4.7-12.5) % Eosinophils % 3.6 (0.7-5.8) % Basophils % 0.6 (0.1-1.2) % Absolute Granulocytes 2.95 (1.56-6.13) x10^3/uL Basophils # 0.03 (0.01-0.08) x10^3/uL Sodium (135-145) mmol/L Potassium (3.5-5.1) mmol/L Chloride (98-107) mmol/L Carbon Dioxide (22-30) mmol/L Anion Gap (5-15) MEQ/L BUN (7-17) mg/dL Creatinine (0.52-1.04) mg/dL Estimated GFR ML/MIN Glucose (74-106) mg/dL POC Glucometer (74 to 106) mg/dL Calcium (8.4-10.2) mg/dL Magnesium (1.6-2.3) mg/dL Total Bilirubin (0.2-1.3) mg/dL AST (14-36) U/L ALT (0-35) U/L Alkaline Phosphatase (38-126) U/L Troponin I (0.000-0.033) ng/mL Serum Total Protein (6.3-8.2) g/dL Albumin (3.5-5.0) g/dL Urine Color (Yellow) Urine Appearance (Clear) Urine pH (4.6-8.0) Ur Specific [place] (1.005-1.030) Urine Protein (Negative) Urine Glucose (UA) (Negative) mg/dL Urine Ketones (Negative) Urine Blood (Negative) Urine Nitrite (Negative) Urine Bilirubin (Negative) Urine Urobilinogen (0.2) mg/dL Ur Leukocyte Esterase (Negative) U Hyaline Cast (Auto) (0-2) /LPF Urine Microscopic RBC (0-5) /HPF Urine Microscopic WBC (0-5) /HPF Ur Epithelial Cells (None Seen) /HPF Urine Bacteria (None Seen) /HPF Urine Culture Reflexed (NO) CLINICAL HISTORY: weakness, dizziness COMPARISON: 06/17/2024, 07/02/2021 TECHNIQUE: An axial non-contrast CT scan of the brain was performed from the skull base to the high parietal region. One of the following dose-reduction techniques was uti lized for this exam. Automated exposure control, adjustment of the mA and/or kV according to patient size, and use of iterative reconstruction. "CT scan performed according to ALARA principles. Automated exposure control used during the exam." FINDINGS: The brain parenchyma shows a normal appearance. Chu-white matter differentiation is maintained. No midline shifts or deformity. No intracerebral or extra axial hematoma. Normal size and configuration of the cerebral ventricles. Normal CT appearance of the posterior fossa structures namely the cerebellar hemispheres, brainstem, and cerebellar peduncles. The bony structures in the skull base are unremarkable. There are no definite calvarium fractures. The scanned paranasal sinuses are clear. Hyperostosis frontaliis interna noted. Previously noted lytic and ill-defined areas in the bilateral maxilla are partially covered, advise PatientID: [id number] Patient Name: LATHA SALAZAR Exam Date: 09/29/2024 Procedure: HEAD WITHOUT CONTRAST page [address] face with contrast or MRI face with contrast for further evaluation if clinically desired. IMPRESSION: 1. No acute post-traumatic sequelae on CT head. 2. There is no evidence of intracerebral hemorrhage or established infarction. 3. No CT evidence of acute ischemia. 4. Previously noted lytic and ill-defined areas in the bilateral maxilla are partially covered, advise dedicated CT face with contrast or MRI face with contrast for further evaluation if clinically desired. 5. Early changes of stroke may not be detected on a CT scan. If there is strong clinical suspicion of stroke, then suggest MRI with diffusion-weighted imaging - Progress Progress: improved Counseled pt/family regarding: lab results, diagnosis, need for follow-up, rad results Medical Desision Making - Independent Historian Additional History obtained from: Spouse - Diagnostic Testing Diagnostic test were ordered, analyzed, and reviewed by me: Yes Radiological Interpretation: Teleradiologist Report - Risk of complications Low Risk: Low risk of morbidity from additional dx testing or treatment - Departure Departure Disposition: Home Clinical Impression: Dizziness, Hypomagnesemia, Dizziness and giddiness, Pain of right knee after injury Type 2 diabetes mellitus Qualifiers: Diabetes mellitus penitentiary insulin use: with penitentiary use Diabetes mellitus complication status: with hyperglycemia Qualified Code(s): E11.65 - Type 2 diabetes mellitus with hyperglycemia; Z79.4 - intermission coordinator (current) use of insulin Condition: Stable Critical Care Time: No Referrals: CAROL ANN ALCARAZ MD [Primary Care Provider] - Follow up with PCP 5 days Instructions: Knee Pain (DC) Additional Instructions: Discharge/Care Plan LATHA SALAZAR was seen on 09/29/24 in the Emergency Room. The patient was counseled regarding Diagnosis,Lab results, Imaging studies, need for follow up and when to return to the Emergency Room. Prescriptions given: Discharge Note I have spoken with the patient and/or caregivers. I have explained the patient's condition, diagnosis and treatment plan based on the information available to me at this time. I have answered the patient's and/or caregiver's questions and addressed any concerns. The patient and/or caregivers have as good understanding of the patient's diagnosis, condition and treatment plan as can be expected at this point. The vital signs have been stable. The patient's condition is stable and appropriate for discharge from the emergency department. The patient will pursue further outpatient evaluation with the primary care physician or other designated or consulting physician as outlined in the dischar ge instructions. The patient and/or caregivers are agreeable to this plan of care and follow-up instructions have been explained in detail. The patient and/or caregivers have received these instruction. The patient/and or caregivers are aware that any significant change in condition or worsening of symptoms should prompt an immediate return to this or the closest emergency department or call 911. LATHA SALAZAR was seen on 09/29/24 n the Emergency Room. At that time you were treated for an emergent condition, during your visit Laboratory, Radiology and/or other procedures may have been ordered. It is very important that you follow-up with your Primary Care Physician CAROL ANN ALCARAZ within the next 24-48 hours to review your Emergency Room visit and the final results of testing that was ordered. Some test results such as Urine Cultures, Blood Cultures, and other cultures if ordered will not be finalized for 24-48 hours. If you do not have a Primary Care Provider please call the medical records department at [phone] ext [phone] to obtain a copy of your results or you may sign into our patient portal to obtain these results by visiting us @ [email or web address] and completing the following steps: 1. Click on the Patient Portal link 2. Click the Patient Self Enrollment Link to complete the enrollment form and entering your 3. Once the enrollment form is completed you will receive an email with a temporary ID and password at the email address you provided. 4. Next choose a user name and password. Your user name must be at least 4 characters long and your password must be at least 4 characters long. 5. Choose a security question from the list and provide your answer to the question. If you already have signed into the Health Portal you may access your Health Care Information 13/06 by the following steps: 1. Login to our website @ [email or web address] 2. Enter your original user name and password. FAQS The [facility] Health Portal is an online tool that contains your Lab Results, R adiology Reports, Visit History, Discharge Instructions and Health Summary Lab and Radiology Results will not be available for 72 hours on the portal. The Portal is a secure site, passwords are encryted and URLs are re-written so they cannot be copied and pasted. You and authorized family members are the only ones who can access your Portal. Also there is a timeout feature that protects your information if you leave the Portal page open. If you have technical difficulty please use the Contact Us link on the page this will allow you to submit any questions you have regarding the Portal or you may contact the Medical Record Department at [phone] ext [phone].
[2024-09-29 10:07] LABS: Absolute Neutrophil Ct (ANC) 2.95 x10^3/uL (1.56-6.13); BASOPHIL % 0.6 % (0.1-1.2); Basophil (Absolute #) 0.03 x10^3/uL (0.01-0.08); Eosinophil % 3.6 % (0.7-5.8); Eosinophil (Absolute #) 0.18 x10^3/uL (0.04-0.36); Hematocrit 34.9 % (34.1-44.9); Hemoglobin 10.8 g/dL (11.2-15.7); IMMATURE GRAN # 0.02 x10^3u/L (0.001-0.031); IMMATURE GRAN % 0.4 % (0.001-0.429); Lymphocyte (Absolute #) 1.44 x10^3/uL (1.18-3.74); Lymphocytes % 28.9 % (19.3-51.7); Mean Cell Volume 92.3 fL (79.4-94.8); Mean Corpuscular Hemoglobin 28.6 pg (25.6-32.2); Mean Corpuscular Hgb Concent. 30.9 g/dL (32.2-35.5); Mean Platelet Volume 12.2 fL (9.4-12.3); Monocyte (Absolute #) 0.36 x10^3/uL (0.24-0.86); Monocytes % 7.2 % (4.7-12.5); Neutrophil % 59.3 % (34.0-71.1); Platelet Count 147 x10^3/uL (182-369); Red Blood Count 3.78 x10^6/uL (3.93-5.22); Red Cell Distribution Width 12.9 % (11.7-14.4)
--- NOTE | 2024-09-29 10:14 | XRAY ---
CLINICAL HISTORY: weakness, dizziness COMPARISON: 06/17/2024, 07/02/2021 TECHNIQUE: An axial non-contrast CT scan of the brain was performed from the skull base to the high parietal region. One of the following dose-reduction techniques was utilized for this exam. Automated exposure control, adjustment of the mA and/or kV according to patient size, and use of iterative reconstruction. "CT scan performed according to ALARA principles. Automated exposure control used during the exam." FINDINGS: The brain parenchyma shows a normal appearance. Chu-white matter differentiation is maintained. No midline shifts or deformity. No intracerebral or extra axial hematoma. Normal size and configuration of the cerebral ventricles. Normal CT appearance of the posterior fossa structures namely the cerebellar hemispheres, brainstem, and cerebellar peduncles. The bony structures in the skull base are unremarkable. There are no definite calvarium fractures. The scanned paranasal sinuses are clear. Hyperostosis frontaliis interna noted. Previously noted lytic and ill-defined areas in the bilateral maxilla are partially covered, advise dedicated CT face with contrast or MRI face with contrast for further evaluation if clinically desired. IMPRESSION: 1. No acute post-traumatic sequelae on CT head. 2. There is no evidence of intracerebral hemorrhage or established infarction. 3. No CT evidence of acute ischemia. 4. Previously noted lytic and ill-defined areas in the bilateral maxilla are partially covered, advise dedicated CT face with contrast or MRI face with contrast for further evaluation if clinically desired. 5. Early changes of stroke may not be detected on a CT scan. If there is strong clinical suspicion of stroke, then suggest MRI with diffusion-weighted imaging Electronically Signed by: Anushka Cruz MD. (09/29/2024 10:10:19 EST)
[2024-09-29 11:12] LABS: ALBUMIN 3.9 g/dL (3.5-5.0); ALKALINE PHOSPHATASE 158 U/L (38-126); ANION GAP 16.5 MEQ/L (5-15); BLOOD UREA NITROGEN 15 mg/dL (7-17); CHLORIDE 104 mmol/L (98-107); Calcium 9.1 mg/dL (8.4-10.2); Carbon Dioxide 19 mmol/L (22-30); Creatinine 1 0.83 mg/dL (0.52-1.04); EST GLOMERULAR FILTRATION RATE 81.2 ML/MIN; Glucose 186 mg/dL (74-106); MAGNESIUM 1.5 mg/dL (1.6-2.3); Potassium 5.1 mmol/L (3.5-5.1); SGOT/AST 70 U/L (14-36); SGPT/ALT 51 U/L (0-35); SODIUM 134 mmol/L (135-145); TROPONIN < 0.012 ng/mL (0.000-0.033); Total Protein 7.8 g/dL (6.3-8.2)
[2024-09-29] MEDS ORDERED: ZOFRAN ODT 4 MG ONE (11:15)
[2024-09-29] MEDS: ZOFRAN ODT 4 MG PO ONE (11:16)
[2024-09-29 11:49] LABS: Appearance Clear (Clear); Bacteria Rare /HPF (None Seen); Bilirubin Negative (Negative); Blood Negative (Negative); Epithelial Cells None Seen /HPF (None Seen); Glucose, Urine Negative (Negative); Ketones Negative (Negative); Leukocyte Esterase Negative (Negative); Nitrite Negative (Negative); Ph 5.5 (4.6-8.0); Protein,Urine Dip Negative (Negative); RBC 0-2 /HPF (0-5); Specific Gravity 1.015 (1.005-1.030); Urobilinogen 0.2 mg/dL (0.2); WBC 0-2 /HPF (0-5)
[2024-09-29] MEDS ORDERED: MAG-OX 400 ONE (11:49)
[2024-09-29] MEDS: MAG-OX 400 PO ONE (11:51)
[2024-09-29 12:20] VITALS: O2SAT 97
[2024-09-29 12:25] VITALS: BP 116/88; PULSE 78; RESP 16
--- NOTE | 2024-09-29 20:40 | XRAY ---
Indication: Weakness. Dizziness. Comparison: November 04, 2023 Portable chest remains inflated and clear. Heart not enlarged. Bony thorax intact again with osteopenia, mild degenerative changes, and lower cervical fusion hardware. Impression: Continued nonacute chest with chronic bony findings.
== END 2024-09-29 12:31 | disposition home or self-care (01) ==
LOC: ED 08:55
DX: G40.909 Epilepsy, unspecified, not intractable, without status epilepticus (principal); R42 Dizziness and giddiness; E83.42 Hypomagnesemia; M25.561 Pain in right knee; W06.XXXA Fall from bed, initial encounter; E11.65 Type 2 diabetes mellitus with hyperglycemia; R51.9 Headache, unspecified; E11.42 Type 2 diabetes mellitus with diabetic polyneuropathy; E78.5 Hyperlipidemia, unspecified; I10 Essential (primary) hypertension; Z79.4 Long term (current) use of insulin; Z79.84 Long term (current) use of oral hypoglycemic drugs; Z79.899 Other long term (current) drug therapy
CPT/HCPCS: 36000; 36415; 70450; 71045; 80053; 81001; 82947; 83735; 84484; 85025; 93005; 99284; 99285; Q0162; A9270-GY

== ENCOUNTER 2025-01-02 11:52 | Emergency (ER) | payer MEDICARE ==
--- NOTE | 2025-01-02 12:23 | ERPHSYRPT ---
- History of Present Illness Time Seen by Provider: 01/02/25 12:23 Source: patient, family Exam Limitations: no limitations Physician History: This is a morbidly obese 59-year-old white female patient of Dr. Alcaraz who arrives by private vehicle to the emergency department because of concern of high blood sugar at home this morning as well as some chest pressure. Patient states that her blood sugar was over 500 at home. Patient did take her insulin medication and on arrival to the emergency department her blood sugar level is 309. Patient has no diagnosed coronary artery disease. She does have a history of diabetes, hypertension, hyperlipidemia, COPD, gastroesophageal reflux disease, degenerative disc disease and anxiety. Timing/Duration: today Severity: mild Modifying Factors: Improves With: nothing Associated Symptoms: chest pain (Mild substernal pressure/ache without radiation), No shortness of breath Allergies/Adverse Reactions: morphine Allergy (Intermediate, Verified 01/02/25 12:27) levofloxacin [From Levaquin] Adverse Reaction (Intermediate, Verified 01/02/25 12:27) PT STATES ONE TIME SHE HAD THIS MEDICINE AND HER VEINS ALL TURNED BRIGHT RED Home Medications: Meclizine HCl 25 mg [Antivert 25 mg] 25 mg PO BID 02/21/18 [History] Ropinirole HCl [Requip] 2 mg PO BID 02/21/18 [History] Gabapentin 300 mg PO TID 07/15/20 [History] Metformin HCl 500 mg [Glucophage 500 MG] 1,000 mg PO BID 07/15/20 [History] Pravastatin Sodium 20 mg PO HS 11/16/20 [History] lisinopriL [Lisinopril] 5 mg PO DAILY 02/10/22 [History] modafiniL [Modafinil] 200 mg PO DAILY 02/10/22 [History] Albuterol Sulfate [Albuterol Sulfate Hfa] 2 puff PO Q6H PRN PRN 11/04/23 [History] Metoclopramide HCl 5 mg PO QID 11/04/23 [History] Montelukast Sodium 10 mg [Singulair 10 MG] 1 tab PO DAILY 11/04/23 [History] Aspirin EC 81 mg [Ecotrin 81 mg] 81 mg PO DAILY 06/17/24 [History] Fluticasone Propion/Salmeterol [Wixela 250-50 Inhub] 1 puff IH BID 06/17/24 [History] Omeprazole 20 mg PO BID 06/17/24 [History] carvediloL [Carvedilol] 18.75 mg PO BID 06/17/24 [History] Albuterol 2.5 mg/3 ml Neb [Proventil 2.5 mg/3 ml Neb] 3 ml IH Q6H 09/29/24 [History] Insulin Glargine,Hum.rec.anlog [Maddi Quinn] 60 unit SQ QAM 01/02/25 [History] Hx Tetanus, Diphtheria Vaccination/Date Given: Yes Hx Influenza Vaccination/Date Given: Yes Hx Pneumococcal Vaccination/Date Given: Yes Travel Risk - International Travel Have you traveled outside of the country in past 3 weeks: No - Emerging Infectious Disease Are you exhibiting symptoms associated with any current EIDs: No - Review of Systems Constitutional: No Symptoms Eyes: No Symptoms Ears, Nose, & Throat: No Symptoms Respiratory: No Symptoms Cardiac: Chest Pain Abdominal/Gastrointestinal: No Symptoms Genitourinary Symptoms: No Symptoms Musculoskeletal: No Symptoms Skin: No Symptoms Neurological: No Symptoms Psychological: No Symptoms Endocrine: No Symptoms Hematologic/Lymphatic: No Symptoms Immunological/Allergic: No Symptoms All Other Systems: Reviewed and Negative - Past Medical History Pertinent Past Medical History: Yes Neurological History: Peripheral Neuropathy, Seizures ENT History: Cataracts Cardiac History: High Cholesterol, Hypertension Respiratory History: Asthma, COPD Endocrine Medical History: Diabetes Type II Musculoskeletal History: Degenerative Disk Disease, Osteoarthritis GI Medical History: Diverticulitis, GERD History: No Pertinent History Psycho-Social History: Anxiety, Depression Female Reproductive Disorders: No Pertinent History Other Medical History: 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 LEAKING HEART VALVE, gastroporesis - Past Surgical History Past Surgical History: Yes Neuro Surgical History: No Pertinent History Cardiac: Angioplasty, Cardiac Catheterization Respiratory: No Pertinent History Gastrointestinal: Cholecystectomy Genitourinary: No Pertinent History Musculoskeletal: No Pertinent History, Orthopedic Surgery Female Surgical History: Tubal Ligation Other Surgical History: left rotator cuff in oct 2015. "leaky heart valve"; righ t thumb surgery, neck surgery Significant Family History: no pertinent family hx - Social History Smoking Status: Former smoker How long have you smoked: 6 YEARS Exposure to second hand smoke: No Alcohol Use: None Drug Use: none Patient Lives Alone: No () - Social Determinants of Health Will the patient participate in the screening: Yes Do you worry about a steady place to live?: No In the past 12 months,have you had to go without utilities?: No Transportation Issues: No Has anyone in your support network made you feel unsafe?: No Have you or anyone in your house had to go without enough: No - Nursing Vital Signs Nursing Vital Signs: Initial Vital Signs Temperature 97.6 F 01/02/25 12:14 Pulse Rate 75 01/02/25 12:14 Respiratory Rate 22 01/02/25 12:14 Blood Pressure 147/96 01/02/25 12:14 O2 Sat by Pulse Oximetry 97 01/02/25 12:14 Pain Scale Pain Intensity 7 - Physical Exam General Appearance: no apparent distress, alert, anxiety, obese Eye Exam: PERRL/EOMI, eyes nml inspection Ears, Nose, Throat Exam: normal ENT inspection, moist mucous membranes Neck Exam: normal inspection, non-tender, supple, full range of motion Respiratory Exam: normal breath sounds, lungs clear, airway intact, No chest tenderness, No respiratory distress Cardiovascular Exam: regular rate/rhythm, normal heart sounds, normal peripheral pulses Gastrointestinal/Abdomen Exam: soft, normal bowel sounds, No tenderness Pelvic Exam: not done Rectal Exam: not done Back Exam: normal inspection, normal range of motion, No CVA tenderness, No vertebral tenderness Extremity Exam: normal inspection, normal range of motion, pelvis stable Neurologic Exam: alert, oriented x 3, cooperative, rating officer II-XII nml as tested, nml cerebellar function, nml station & gait, sensation nml Skin Exam: normal color, warm, dry Lymphatic Exam: No adenopathy SpO2 Interpretation: normal O2 Delivery: Room Air - Course Nursing assessment & vital signs reviewed: Yes EKG Interpreted by Me: RATE (74), Sinus Rhythm, NORMAL AXIS, NORMAL INTERVALS, NORMAL QRS, Other (No acute ischemic changes on today's twelve-lead EKG. QTc is 433) Ordered Tests: Active Orders 24 hr Category Date Time Status IV Insertion STAT Care 01/02/25 12:27 Active Pulse Oximetry (ED) STAT Care 01/02/25 12:27 Active CBC W DIFF Stat Lab 01/02/25 13:00 Completed CMP Stat Lab 01/02/25 13:00 Completed Lactic Acid Urgent Lab 01/02/25 12:56 Completed MAGNESIUM Stat Lab 01/02/25 13:00 Completed POCT GLUCOSE Stat Lab 01/02/25 12:18 Completed TROPONIN Q4H Lab 01/02/25 13:00 Completed TROPONIN Q4H Lab 01/02/25 17:15 Ordered TROPONIN Q4H Lab 01/02/25 21:15 Ordered UA W/RFX UR CULTURE Stat Lab 01/02/25 12:37 Completed Medication Summary Discontinued Medications Generic Name Dose Route Start Last Admin Trade Name Curry PRN Reason Stop Dose Admin Sodium Chloride 1,000 mls @ 999 mls/hr 01/02/25 12:27 01/02/25 14:09 Sodium Chloride 0.9% 1000 Ml IV 01/02/25 13:27 Infused .Q1H1M STA Infusion Sodium Chloride Confirm 01/02/25 12:39 Sodium Chloride 0.9% 1000 Ml Administered 01/02/25 12:40 Dose 1,000 mls @ ud .ROUTE .STK-MED ONE Sodium Chloride Confirm 01/02/25 12:54 Sodium Chloride 0.9% 1000 Ml Administered 01/02/25 12:55 Dose 1,000 mls @ ud .ROUTE .STK-MED ONE Sodium Chloride 500 mls @ 100 mls/hr 01/02/25 13:45 01/02/25 13:53 Sodium Chloride 0.9% 500 Ml IV 02/01/25 13:44 Not Given .Q5H [facility] Lab/Rad Data: Laboratory Result Diagrams 01/02/25 13:00 01/02/25 13:00 Laboratory Results 01/02/25 01/02/25 01/02/25 Range/Units 13:00 13:00 13:00 WBC 4.3 (3.98-10.04) x10^3/uL RBC 3.40 L (3.93-5.22) x10^6/uL Hgb 9.9 L (11.2-15.7) g/dL Hct 30.7 L (34.1-44.9) % MCV 90.3 (79.4-94.8) fL MCH 29.1 (25.6-32.2) pg MCHC 32.2 (32.2-35.5) g/dL RDW 13.0 (11.7-14.4) % Plt Count 143 L (182-369) x10^3/uL MPV 12.3 (9.4-12.3) fL Gran % 53.3 (34.0-71.1) % Immature Gran % (Auto) 0.5 H (0.001-0.429) % Nucleat RBC Rel Count 0.0 (0.00-0.2) % Eos # (Auto) 0.28 (0.04-0.36) x10^3/uL Immature Gran # (Auto) 0.02 (0.001-0.031) x10^3u/L Absolute Lymphs (auto) 1.38 (1.18-3.74) x10^3/uL Absolute Monos (auto) 0.29 (0.24-0.86) x10^3/uL Absolute Nucleated RBC 0.00 (0.00-0.012) x10^3u/L Lymphocytes % 32.2 (19.3-51.7) % Monocytes % 6.8 (4.7-12.5) % Eosinophils % 6.5 H (0.7-5.8) % Basophils % 0.7 (0.1-1.2) % Absolute Granulocytes 2.28 (1.56-6.13) x10^3/uL Basophils # 0.03 (0.01-0.08) x10^3/uL Sodium 132 L (135-145) mmol/L Potassium 5.1 (3.5-5.1) mmol/L Chloride 102 (98-107) mmol/L Carbon Dioxide 23 (22-30) mmol/L Anion Gap 12.3 (5-15) MEQ/L BUN 13 (7-17) mg/dL Creatinine 0.80 (0.52-1.04) mg/dL Estimated GFR 84.8 ML/MIN Glucose 329 H (74-106) mg/dL POC Glucometer (74 to 106) mg/dL Lactic Acid (0.4-2.0) Calcium 9.0 (8.4-10.2) mg/dL Magnesium 1.6 (1.6-2.3) mg/dL Total Bilirubin 0.60 (0.2-1.3) mg/dL AST 51 H (14-36) U/L ALT 44 H (0-35) U/L Alkaline Phosphatase 123 (38-126) U/L Troponin I < 0.012 (0.000-0.033) ng/mL Serum Total Protein 7.3 (6.3-8.2) g/dL Albumin 4.1 (3.5-5.0) g/dL Urine Color (Yellow) Urine Appearance (Clear) Urine pH (4.6-8.0) Ur Specific [place] (1.005-1.030) Urine Protein (Negative) Urine Glucose (UA) (Negative) mg/dL Urine Ketones (Negative) Urine Blood (Negative) Urine Nitrite (Negative) Urine Bilirubin (Negative) Urine Urobilinogen (0.2) mg/dL Ur Leukocyte Esterase (Negative) U Hyaline Cast (Auto) (0-2) /LPF Urine Microscopic RBC (0-5) /HPF Urine Microscopic WBC (0-5) /HPF Ur Epithelial Cells (None Seen) /HPF Urine Bacteria (None Seen) /HPF Urine Culture Reflexed (NO) 01/02/25 01/02/25 01/02/25 Range/Units 12:56 12:37 12:18 WBC (3.98-10.04) x10^3/uL RBC (3.93-5.22) x10^6/uL Hgb (11.2-15.7) g/dL Hct (34.1-44.9) % MCV (79.4-94.8) fL MCH (25.6-32.2) pg MCHC (32.2-35.5) g/dL RDW (11.7-14.4) % Plt Count (182-369) x10^3/uL MPV (9.4-12.3) fL Gran % (34.0-71.1) % Immature Gran % (Auto) (0.001-0.429) % Nucleat RBC Rel Count (0.00-0.2) % Eos # (Auto) (0.04-0.36) x10^3/uL Immature Gran # (Auto) (0.001-0.031) x10^3u/L Absolute Lymphs (auto) (1.18-3.74) x10^3/uL Absolute Monos (auto) (0.24-0.86) x10^3/uL Absolute Nucleated RBC (0.00-0.012) x10^3u/L Lymphocytes % (19.3-51.7) % Monocytes % (4.7-12.5) % Eosinophils % (0.7-5.8) % Basophils % (0.1-1.2) % Absolute Granulocytes (1.56-6.13) x10^3/uL Basophils # (0.01-0.08) x10^3/uL Sodium (135-145) mmol/L Potassium (3.5-5.1) mmol/L Chloride (98-107) mmol/L Carbon Dioxide (22-30) mmol/L Anion Gap (5-15) MEQ/L BUN (7-17) mg/dL Creatinine (0.52-1.04) mg/dL Estimated GFR ML/MIN Glucose (74-106) mg/dL POC Glucometer 309 H (74 to 106) mg/dL Lactic Acid 1.7 (0.4-2.0) Calcium (8.4-10.2) mg/dL Magnesium (1.6-2.3) mg/dL Total Bilirubin (0.2-1.3) mg/dL AST (14-36) U/L ALT (0-35) U/L Alkaline Phosphatase (38-126) U/L Troponin I (0.000-0.033) ng/mL Serum Total Protein (6.3-8.2) g/dL Albumin (3.5-5.0) g/dL Urine Color Yellow (Yellow) Urine Appearance Clear (Clear) Urine pH 6.0 (4.6-8.0) Ur Specific [place] >=1.030 A (1.005-1.030) Urine Protein Negative (Negative) Urine Glucose (UA) >=1000 A (Negative) mg/dL Urine Ketones Negative (Negative) Urine Blood Negative (Negative) Urine Nitrite Negative (Negative) Urine Bilirubin Negative (Negative) Urine Urobilinogen 0.2 (0.2) mg/dL Ur Leukocyte Esterase Negative (Negative) U Hyaline Cast (Auto) NONE SEEN (0-2) /LPF Urine Microscopic RBC 0-2 (0-5) /HPF Urine Microscopic WBC 0-2 (0-5) /HPF Ur Epithelial Cells None Seen (None Seen) /HPF Urine Bacteria None Seen (None Seen) /HPF Urine Culture Reflexed NO (NO) - Progress Progress: improved, re-examined Progress Note: 01/02/25 13:16 My medical decision making and the assignment of moderate complexity to this patient's medical issue today is based on review of the patient's past medical history, review of the patient's medication list, reviewed patient drug allergy list, history present illness and physical findings on examination. The workup in this patient includes placement of a intravenous line, twelve-lead EKG, troponin level, CBC, CMP, urinalysis, amylase and lipase levels. Differential diagnosis includes but is not limited to hyperglycemia, DKA, urin jessica tract infection, dehydration, electrolyte abnormalities, arrhythmia, myocardial infarction 01/02/25 14:25 I interpreted the patient's laboratory data results. Based on the laboratory data results, there are no emergent medical issues. Patient does have hyperglycemia. Patient is a normal CO2, normal anion gap and normal lactic acid level. There are no ketones in the patient's urine 01/02/25 14:26 Counseled pt/family regarding: lab results, diagnosis, need for follow-up - Departure Departure Disposition: Home Clinical Impression: Hyperglycemia Condition: Stable Critical Care Time: No Referrals: CAROL ANN ALCARAZ MD [Primary Care Provider] - Follow up/PCP as directed Additional Instructions: Continue all your medications as prescribed. Monitor your blood sugar levels closely. Continue your diabetic diet. Call your primary care provider today, 01/02/2025, to make arrangements for follow-up appointment for further evaluation and management
[2025-01-02 12:35] VITALS: TEMP 97.6; O2SAT 97
[2025-01-02] MEDS ORDERED: Sodium Chloride 0.9% 1000 ML 0 ML ONE (12:39)
[2025-01-02] MEDS ORDERED: Sodium Chloride 0.9% 1000 ML 1,000 ML ONE (12:54)
[2025-01-02] MEDS: Sodium Chloride 0.9% 1000 ML 1,000 ML IV STA (12:55)
[2025-01-02 13:03] LABS: Absolute Neutrophil Ct (ANC) 2.28 x10^3/uL (1.56-6.13); BASOPHIL % 0.7 % (0.1-1.2); Basophil (Absolute #) 0.03 x10^3/uL (0.01-0.08); Eosinophil % 6.5 % (0.7-5.8); Eosinophil (Absolute #) 0.28 x10^3/uL (0.04-0.36); Hematocrit 30.7 % (34.1-44.9); Hemoglobin 9.9 g/dL (11.2-15.7); IMMATURE GRAN # 0.02 x10^3u/L (0.001-0.031); IMMATURE GRAN % 0.5 % (0.001-0.429); Lymphocyte (Absolute #) 1.38 x10^3/uL (1.18-3.74); Lymphocytes % 32.2 % (19.3-51.7); Mean Cell Volume 90.3 fL (79.4-94.8); Mean Corpuscular Hemoglobin 29.1 pg (25.6-32.2); Mean Corpuscular Hgb Concent. 32.2 g/dL (32.2-35.5); Mean Platelet Volume 12.3 fL (9.4-12.3); Monocyte (Absolute #) 0.29 x10^3/uL (0.24-0.86); Monocytes % 6.8 % (4.7-12.5); Neutrophil % 53.3 % (34.0-71.1); Platelet Count 143 x10^3/uL (182-369); White Blood Count 4.3 x10^3/uL (3.98-10.04)
[2025-01-02 13:11] LABS: Appearance Clear (Clear); Bacteria None Seen /HPF (None Seen); Bilirubin Negative (Negative); Blood Negative (Negative); Epithelial Cells None Seen /HPF (None Seen); Glucose, Urine >=1000 mg/dL (Negative); Hyaline Casts NONE SEEN /LPF (0-2); Ketones Negative (Negative); Leukocyte Esterase Negative (Negative); Nitrite Negative (Negative); Protein,Urine Dip Negative (Negative); RBC 0-2 /HPF (0-5); Specific Gravity >=1.030 (1.005-1.030); Urobilinogen 0.2 mg/dL (0.2); WBC 0-2 /HPF (0-5)
[2025-01-02 13:22] LABS: ALBUMIN 4.1 g/dL (3.5-5.0); ANION GAP 12.3 MEQ/L (5-15); BILIRUBIN,TOTAL 0.6 mg/dL (0.2-1.3); Creatinine 1 0.8 mg/dL (0.52-1.04); EST GLOMERULAR FILTRATION RATE 84.8 ML/MIN; MAGNESIUM 1.6 mg/dL (1.6-2.3); Potassium 5.1 mmol/L (3.5-5.1); Total Protein 7.3 g/dL (6.3-8.2)
[2025-01-02] MEDS: Sodium Chloride 0.9% 500 ML 500 ML IV SCH (13:53)
[2025-01-02 14:31] VITALS: BP 129/91; PULSE 73; RESP 16
== END 2025-01-02 14:36 | disposition home or self-care (01) ==
LOC: ED 11:52
DX: E11.65 Type 2 diabetes mellitus with hyperglycemia (principal); R07.9 Chest pain, unspecified; I10 Essential (primary) hypertension; E78.5 Hyperlipidemia, unspecified; E11.42 Type 2 diabetes mellitus with diabetic polyneuropathy; Z79.84 Long term (current) use of oral hypoglycemic drugs; Z79.4 Long term (current) use of insulin; Z79.899 Other long term (current) drug therapy
CPT/HCPCS: 36415; 80053; 81001; 82947; 83605; 83735; 84484; 85025; 94760; 96360; 99283; 99284

== ENCOUNTER 2025-06-19 12:59 | Emergency (ER) | payer MEDICARE ==
[2025-06-19 13:21] VITALS: TEMP 96.7
--- NOTE | 2025-06-19 13:43 | ERPHSYRPT ---
- History of Present Illness Time Seen by Provider: 06/19/25 13:19 Historian: patient Exam Limitations: no limitations Patient Subjective Stated Complaint: Pt stated that she has left upper quadrant pain- began 1 week ago and is worsening Triage Nursing Assessment: pt walks to the bed, breathing is nonlabored, skin is w/p/d. She states that last week she began to have pain to her left upper quadrant she rates at 8/10. The pain has gotten progressively worse and radiates around to her back. She has also experienced nausea as well. Her abdomen is tender to palpation and bowel sounds present. Physician History: 59-year-old female with a history of diabetes mellitus, diverticulitis presented to the ER with complaints of left upper quadrant/flank pain moderate to severe sharp shooting with radiation to the back, aggravation with palpation movements. Reports associated nausea without vomiting. No diarrhea or constipation. No fever or chills reported. Denies any UTI symptoms Allergies/Adverse Reactions: morphine Allergy (Intermediate, Verified 06/19/25 13:50) levofloxacin [From Levaquin] Adverse Reaction (Intermediate, Verified 06/19/25 13:50) PT STATES ONE TIME SHE HAD THIS MEDICINE AND HER VEINS ALL TURNED BRIGHT RED Home Medications: Meclizine HCl 25 mg [Antivert 25 mg] 25 mg PO BID 02/21/18 [History] Ropinirole HCl [Requip] 2 mg PO BID 02/21/18 [History] Gabapentin 300 mg PO TID 07/15/20 [History] Metformin HCl 500 mg [Glucophage 500 MG] 1,000 mg PO BID 07/15/20 [History] Pravastatin Sodium 20 mg PO HS 11/16/20 [History] lisinopriL [Lisinopril] 5 mg PO DAILY 02/10/22 [History] modafiniL [Modafinil] 200 mg PO DAILY 02/10/22 [History] Albuterol Sulfate [Albuterol Sulfate Hfa] 2 puff PO Q6H PRN PRN 11/04/23 [History] Metoclopramide HCl 5 mg PO QID 11/04/23 [History] Montelukast Sodium 10 mg [Singulair 10 MG] 1 tab PO DAILY 11/04/23 [History] Aspirin EC 81 mg [Ecotrin 81 mg] 81 mg PO DAILY 06/17/24 [History] Fluticasone Propion/Salmeterol [Wixela 250-50 Inhub] 1 puff IH BID 06/17/24 [History] Omeprazole 40 mg PO BID 06/17/24 [History] carvediloL [Carvedilol] 18.75 mg PO BID 06/17/24 [History] Albuterol 2.5 mg/3 ml Neb [Proventil 2.5 mg/3 ml Neb] 3 ml IH Q6H 09/29/24 [History] Insulin Aspart [Novolog] 26 unit SQ AC 06/19/25 [History] Insulin Glargine,Hum.rec.anlog [Basaglar Tempo Pen U-100] 60 units SQ DAILY 06/19/25 [History] Semaglutide [Ozempic] 0.5 mg SQ CLARIFY 06/19/25 [History] Hx Tetanus, Diphtheria Vaccination/Date Given: Yes Hx Influenza Vaccination/Date Given: Yes Hx Pneumococcal Vaccination/Date Given: Yes Immunizations Up to Date: Yes Travel Risk - International Travel Have you traveled outside of the country in past 3 weeks: No - Emerging Infectious Disease Are you exhibiting symptoms associated with any current EIDs: No - Review of Systems Constitutional: No Symptoms Eyes: No Symptoms Ears, Nose, & Throat: No Symptoms Respiratory: No Symptoms Cardiac: No Symptoms Abdominal/Gastrointestinal: Abdominal Pain, Nausea Genitourinary Symptoms: No Symptoms Musculoskeletal: Back Pain Skin: No Symptoms Neurological: No Symptoms Endocrine: No Symptoms Hematologic/Lymphatic: No Symptoms Immunological/Allergic: No Symptoms - Past Medical History Pertinent Past Medical History: Yes Neurological History: Peripheral Neuropathy, Seizures ENT History: Cataracts Cardiac History: High Cholesterol, Hypertension Respiratory History: Asthma, COPD Endocrine Medical History: Diabetes Type II Musculoskeletal History: Degenerative Disk Disease, Osteoarthritis GI Medical History: Diverticulitis, GERD History: No Pertinent History Psycho-Social History: Anxiety, Depression Female Reproductive Disorders: No Pertinent History Other Medical History: 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 LEAKING HEART VALVE, gastroporesis - Past Surgical History Past Surgical History: Yes Neuro Surgical History: No Pertinent History Cardiac: Angioplasty, Cardiac Catheterization Respiratory: No Pertinent History Gastrointestinal: Cholecystectomy Genitourinary: No Pertinent History Musculoskeletal: No Pertinent History, Orthopedic Surgery Female Surgical History: Tubal Ligation Other Surgical History: left rotator cuff in oct 2015. "leaky heart valve"; right thumb surgery, neck surgery Significant Family History: no pertinent family hx - Social History Smoking Status: Former smoker How long have you smoked: 6 YEARS Exposure to second hand smoke: No Drug Use: none - Social Determinants of Health Will the patient participate in the screening: Yes Do you worry about a steady place to live?: No Do you have any problems with any of the following?: No known problems In the past 12 months,have you had to go without utilities?: No Transportation Issues: No Has anyone in your support network made you feel unsafe?: No Have you or anyone in your house had to go w/o enough food: No - Nursing Vital Signs Nursing Vital Signs: Initial Vital Signs Temperature 96.7 F 06/19/25 13:04 Pulse Rate 93 H 06/19/25 13:04 Respiratory Rate 16 06/19/25 13:04 Blood Pressure 124/82 06/19/25 13:04 O2 Sat by Pulse Oximetry 97 06/19/25 13:04 Pain Scale Pain Intensity 8 - Physical Exam General Appearance: no apparent distress Eye Exam: PERRL/EOMI Ears, Nose, Throat Exam: normal ENT inspection Neck Exam: normal inspection, full range of motion Respiratory Exam: normal breath sounds, lungs clear Cardiovascular Exam: regular rate/rhythm, normal heart sounds Gastrointestinal/Abdomen Exam: soft, tenderness (Left upper quadrant/flank), No guarding Back Exam: normal inspection, normal range of motion Extremity Exam: normal inspection, normal range of motion Neurologic Exam: alert, oriented x 3, cooperative Skin Exam: normal color SpO2 Interpretation: normal SpO2: 97 O2 Delivery: Room Air Ordered Tests: Active Orders 24 hr Category Date Time Status IV Insertion STAT Care 06/19/25 13:38 Active NPO (ED) STAT Care 06/19/25 13:38 Active ABDOMEN AND PELVIS W/0 CONTRAS [CT] Stat Exams 06/19/25 13:39 Completed CBC W DIFF Stat Lab 06/19/25 13:50 Completed CMP Stat Lab 06/19/25 13:50 Completed LIPASE Stat Lab 06/19/25 13:50 Completed UA W/RFX UR CULTURE Stat Lab 06/19/25 13:38 Completed Medication Summary Discontinued Medications Generic Name Dose Route Start Last Admin Trade Name Freq PRN Reason Stop Dose Admin Hydromorphone HCl 0.5 mg 06/19/25 13:38 06/19/25 14:19 Hydromorphone 1 Mg/1ml Inj IV 06/19/25 13:39 0.5 mg STAT ONE Administration Hydromorphone HCl Confirm 06/19/25 14:02 Hydromorphone 1 Mg/1ml Inj Administered 06/19/25 14:03 Dose 1 mg .ROUTE .STK-MED ONE Sodium Chloride 1,000 mls @ 999 mls/hr 06/19/25 13:38 06/19/25 14:26 Sodium Chloride 0.9% 1000 Ml IV 06/19/25 14:38 999 mls/hr .Q1H1M STA Administration Sodium Chloride Confirm 06/19/25 14:02 Sodium Chloride 0.9% 1000 Ml Administered 06/19/25 14:03 Dose 1,000 mls @ ud .ROUTE .STK-MED ONE Ondansetron HCl 4 mg 06/19/25 13:38 06/19/25 14:23 Ondansetron Hcl 4 Mg/2 Ml Vial IV 06/19/25 13:39 4 mg STAT ONE Administration Ondansetron HCl Confirm 06/19/25 14:02 Ondansetron Hcl 4 Mg/2 Ml Vial Administered 06/19/25 14:03 Dose 4 mg .ROUTE .STK-MED ONE Lab/Rad Data: Laboratory Result Diagrams 06/19/25 13:50 06/19/25 13:50 Laboratory Results 06/19/25 06/19/25 06/19/25 Range/Units 13:50 13:50 13:38 WBC 7.1 (3.98-10.04) x10^3/uL RBC 3.65 L (3.93-5.22) x10^6/uL Hgb 10.3 L (11.2-15.7) g/dL Hct 32.0 L (34.1-44.9) % MCV 87.7 (79.4-94.8) fL MCH 28.2 (25.6-32.2) pg MCHC 32.2 (32.2-35.5) g/dL RDW 13.7 (11.7-14.4) % Plt Count 148 L (182-369) x10^3/uL MPV 10.2 (9.4-12.3) fL Gran % 63.2 (34.0-71.1) % Immature Gran % (Auto) 0.4 (0.001-0.429) % Nucleat RBC Rel Count 0.0 (0.00-0.2) % Eos # (Auto) 0.15 (0.04-0.36) x10^3/uL Immature Gran # (Auto) 0.03 (0.001-0.031) x10^3u/L Absolute Lymphs (auto) 2.00 (1.18-3.74) x10^3/uL Absolute Monos (auto) 0.41 (0.24-0.86) x10^3/uL Absolute Nucleated RBC 0.00 (0.00-0.012) x10^3u/L Lymphocytes % 28.1 (19.3-51.7) % Monocytes % 5.8 (4.7-12.5) % Eosinophils % 2.1 (0.7-5.8) % Basophils % 0.4 (0.1-1.2) % Absolute Granulocytes 4.50 (1.56-6.13) x10^3/uL Basophils # 0.03 (0.01-0.08) x10^3/uL Sodium 132 L (135-145) mmol/L Potassium 4.7 (3.5-5.1) mmol/L Chloride 102 (98-107) mmol/L Carbon Dioxide 21 L (22-30) mmol/L Anion Gap 14.3 (5-15) MEQ/L BUN 12 (7-17) mg/dL Creatinine 0.78 (0.52-1.04) mg/dL Estimated GFR 87.4 ML/MIN Glucose 95 (74-106) mg/dL Calcium 9.6 (8.4-10.2) mg/dL Total Bilirubin 0.50 (0.2-1.3) mg/dL AST 53 H (14-36) U/L ALT 39 H (0-35) U/L Alkaline Phosphatase 148 H (38-126) U/L Serum Total Protein 7.9 (6.3-8.2) g/dL Albumin 4.2 (3.5-5.0) g/dL Lipase 103 (23-300) U/L Urine Color Yellow (Yellow) Urine Appearance Clear (Clear) Urine pH 6.0 (4.6-8.0) Ur Specific Kirvin 1.010 (1.005-1.030) Urine Protein Negative (Negative) Urine Glucose (UA) Negative (Negative) mg/dL Urine Ketones Negative (Negative) Urine Blood Negative (Negative) Urine Nitrite Negative (Negative) Urine Bilirubin Negative (Negative) Urine Urobilinogen 1.0 A (0.2) mg/dL Ur Leukocyte Esterase Negative (Negative) U Hyaline Cast (Auto) NONE SEEN (0-2) /LPF Urine Microscopic RBC 0-2 (0-5) /HPF Urine Microscopic WBC 0-2 (0-5) /HPF Ur Epithelial Cells Rare (None Seen) /HPF Urine Bacteria None Seen (None Seen) /HPF Urine Culture Reflexed NO (NO) - Progress Progress: improved, pain not gone completely, re-examined Progress Note: 06/19/25 15:33 Differential diagnosis: Gastritis, pancreatitis, diverticulitis, colitis, perforation, pyelonephritis, ureteral stone 59-year-old is evaluated in the ER for left-sided abdominal pain with nausea. She is given fluids and symptomatic treatment, on reevaluation she is feeling better. Workup showed normal white count, chemistries fairly unremarkable and no UTI. CT abdomen pelvis showed diverticulosis but no diverticulitis, no other acute intra-abdominal pelvic findings. I do not know the exact cause of her pain but have ruled out all the major emergencies, recommended symptomatic/supportive care and outpatient follow-up. Discussed signs symptoms of worsening needing return to ER which she seemed understanding. Stable for discharge. Complexity of problems addressed: Moderate acute Complexity of data reviewed/analyzed: Moderate to extensive Risk of complication: Low Counseled pt/family regarding: lab results, diagnosis, need for follow-up, rad results Medical Desision Making - Diagnostic Testing Diagnostic test were ordered, analyzed, and reviewed by me: Yes Radiological Interpretation: Reviewed by me - Risk of complications The pt has a mod risk of morbidity or mortality based on: Need for prescription drug management - Departure Departure Disposition: Home Clinical Impression: Left sided abdominal pain Condition: Stable Critical Care Time: No Referrals: CAROL ANN ALCARAZ MD [Primary Care Provider, [facility]] - Follow up with PCP 1 day Instructions: Severe Abdominal Pain, Adult (DC) Additional Instructions: Take Tylenol as needed. Follow-up with primary care for reevaluation. Return to ER for intractable abdominal pain or if develop vomiting/fever chills etc.
[2025-06-19] MEDS ORDERED: Hydromorphone 1 mg/ml Injection ONE (14:02)
[2025-06-19] MEDS ORDERED: Zofran 4 MG/2 ML VIAL ONE (14:02)
[2025-06-19 14:05] LABS: BASOPHIL % 0.4 % (0.1-1.2); Basophil (Absolute #) 0.03 x10^3/uL (0.01-0.08); Eosinophil (Absolute #) 0.15 x10^3/uL (0.04-0.36); Hematocrit 32.0 % (34.1-44.9); Hemoglobin 10.3 g/dL (11.2-15.7); IMMATURE GRAN # 0.03 x10^3u/L (0.001-0.031); IMMATURE GRAN % 0.4 % (0.001-0.429); Lymphocyte (Absolute #) 2.00 x10^3/uL (1.18-3.74); Mean Corpuscular Hemoglobin 28.2 pg (25.6-32.2); Mean Corpuscular Hgb Concent. 32.2 g/dL (32.2-35.5); Monocyte (Absolute #) 0.41 x10^3/uL (0.24-0.86); NUCLEATED RBC # 0.00 x10^3u/L (0.00-0.012); NUCLEATED RBC % 0.0 % (0.00-0.2); Platelet Count 148 x10^3/uL (182-369); Red Blood Count 3.65 x10^6/uL (3.93-5.22); White Blood Count 7.1 x10^3/uL (3.98-10.04)
[2025-06-19 14:15] LABS: Calcium 9.6 mg/dL (8.4-10.2); Carbon Dioxide 21.0 mmol/L (22-30); Creatinine 1 0.78 mg/dL (0.52-1.04); EST GLOMERULAR FILTRATION RATE 87.4 ML/MIN; Glucose 95.0 mg/dL (74-106); Potassium 4.7 mmol/L (3.5-5.1); SGOT/AST 53.0 U/L (14-36); SGPT/ALT 39.0 U/L (0-35); Total Protein 7.9 g/dL (6.3-8.2)
[2025-06-19] MEDS: Hydromorphone 1 mg/ml Injection IV ONE (14:19)
[2025-06-19] MEDS: Zofran 4 MG/2 ML VIAL IV ONE (14:23)
[2025-06-19 14:46] LABS: Glucose, Urine Negative (Negative); Protein,Urine Dip Negative (Negative); RBC 0-2 /HPF (0-5); WBC 0-2 /HPF (0-5)
--- NOTE | 2025-06-19 15:12 | XRAY ---
Indication: Left flank pain. Multiple contiguous axial images obtained through the abdomen and pelvis without contrast using renal stone protocol. Comparison: None Lung bases clear. Heart not enlarged. No renal calculus or evidence for obstructive uropathy in either system. A few bilateral renal cysts, largest left lower pole measuring 3.4 cm. Noncontrasted stomach and bowel loops appear nonobstructed with normal appendix. Mild scattered descending and sigmoid diverticulosis without diverticulitis. Incidental mild diffuse fatty liver and 14.9 cm splenomegaly. Previous cholecystectomy and bilateral tubal ligation clips. Remaining pancreas, adrenal glands, kidneys, ureters, bladder, uterus, and aorta are unremarkable for noncontrast exam. Osseous structures intact with osteopenia and minimal/mild degenerative changes throughout spine. Impression: 1. Negative renal calculus or evidence for obstructive uropathy. 2. Chronic findings including colonic diverticulosis, bilateral renal cysts, fatty liver, splenomegaly, and chronic bony findings.
[2025-06-19 16:03] VITALS: PULSE 80; RESP 18
[2025-06-19 16:26] VITALS: BP 130/80; O2SAT 95
== END 2025-06-19 16:26 ==
LOC: ED 12:59
DX: R10.12 Left upper quadrant pain (principal); R11.0 Nausea; E11.42 Type 2 diabetes mellitus with diabetic polyneuropathy; I10 Essential (primary) hypertension; Z79.4 Long term (current) use of insulin; Z79.84 Long term (current) use of oral hypoglycemic drugs; Z79.85 Long-term (current) use of injectable non-insulin antidiabetic drugs; Z79.899 Other long term (current) drug therapy

== ENCOUNTER 2025-09-17 09:23 | Observation (INO) | payer MEDICARE ==
--- NOTE | 2025-09-17 10:12 | ERPHSYRPT ---
- History of Present Illness Time Seen by Provider: 09/17/25 10:07 Source: patient Exam Limitations: no limitations Patient Subjective Stated Complaint: pt states that she had an unwitnessed seizure and now feels like she has a migraine Triage Nursing Assessment: Pt brought to the ER by her daughter in law, marianna chin, rates head pain as 9/10, pulses normal, skin n/w/d, denies hitting head, reports that she was slumped to the side on the couch, denies chest pain, denies SOB, nausea, does not take anything for seizures due to doctor not wanting to put her on anything Physician History: 60-year-old female past medical history significant for seizures migraines hypertension hyperlipidemia diabetes COPD anxiety depression presents to our ED for evaluation of possible seizure. Patient states at approximately 8 AM this morning she was at home sitting down watching TV. Patient states that she later awoke with a migraine. So experiencing tingling of her right hand. Patient states this has happened in the past and she attributes these episodes to a seizure. Patient rates her headache 9 out of 10. No BHT no neck pain. Cervical spine cleared clinically. Patient voices no other complaints or concerns at this time Patient was brought in by her [id number] Portions of this note were created with voice recognition technology. There may be grammatical, spelling, punctuation or sound alike errors p Timing/Duration: today Severity: moderate Modifying Factors: Improves With: nothing Associated Symptoms: denies symptoms Allergies/Adverse Reactions: morphine Allergy (Intermediate, Verified 09/17/25 09:41) levofloxacin [From Levaquin] Adverse Reaction (Intermediate, Verified 09/17/25 09:41) PT STATES ONE TIME SHE HAD THIS MEDICINE AND HER VEINS ALL TURNED BRIGHT RED Home Medications: Meclizine HCl 25 mg [Antivert 25 mg] 25 mg PO BID 02/21/18 [History] Ropinirole HCl [Requip] 2 mg PO BID 02/21/18 [History] Gabapentin 300 mg PO TID 07/15/20 [History] Metformin HCl 500 mg [Glucophage 500 MG] 1,000 mg PO BID 07/15/20 [History] Pravastatin Sodium 20 mg PO HS 11/16/20 [History] lisinopriL [Lisinopril] 5 mg PO DAILY 02/10/22 [History] modafiniL [Modafinil] 200 mg PO DAILY 02/10/22 [History] Albuterol Sulfate [Albuterol Sulfate Hfa] 2 puff PO Q6H PRN PRN 11/04/23 [History] Metoclopramide HCl 5 mg PO QID 11/04/23 [History] Aspirin EC 81 mg [Ecotrin 81 mg] 81 mg PO DAILY 06/17/24 [History] Omeprazole 40 mg PO BID 06/17/24 [History] carvediloL [Carvedilol] 18.75 mg PO BID 06/17/24 [History] Albuterol 2.5 mg/3 ml Neb [Proventil 2.5 mg/3 ml Neb] 3 ml IH Q6H 09/29/24 [History] Insulin Aspart [Novolog] 26 unit SQ AC 06/19/25 [History] Insulin Glargine,Hum.rec.anlog [Basaglar Tempo Pen U-100] 50 units SQ DAILY 06/19/25 [History] Semaglutide [Ozempic] 1 mg SQ CLARIFY 06/19/25 [History] Erenumab-Aooe [Aimovig Autoinjector] 70 mg SQ .MONTHLY 09/17/25 [History] Fluticasone Propion/Salmeterol [Wixela 500-50 Inhub] 1 inh PO BID 09/17/25 [History] Furosemide 20 mg [Lasix 20 mg] 20 mg PO DAILY 09/17/25 [History] SUMAtriptan succinate [Imitrex 50 mg] 50 mg PO . NEEDED PRN 09/17/25 [History] Tizanidine HCl 4 mg PO TID 09/17/25 [History] Hx Tetanus, Diphtheria Vaccination/Date Given: Yes Hx Influenza Vaccination/Date Given: Yes Hx Pneumococcal Vaccination/Date Given: Yes Travel Risk - International Travel Have you traveled outside of the country in past 3 weeks: No - Emerging Infectious Disease Are you exhibiting symptoms associated with any current EIDs: No - Review of Systems All Other Systems: Reviewed and Negative - Past Medical History Pertinent Past Medical History: Yes Neurological History: Migraines, Peripheral Neuropathy, Seizures ENT History: Cataracts Cardiac History: High Cholesterol, Hypertension Respiratory History: Asthma, COPD Endocrine Medical History: Diabetes Type II Musculoskeletal History: Degenerative Disk Disease, Osteoarthritis GI Medical History: Diverticulitis, GERD History: No Pertinent History Psycho-Social History: Anxiety, Depression Female Reproductive Disorders: No Pertinent History Other Medical History: 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 LEAKING HEART VALVE, gastroporesis - Past Surgical History Past Surgical History: Yes Neuro Surgical History: No Pertinent History Cardiac: Angioplasty, Cardiac Catheterization Respiratory: No Pertinent History Gastrointestinal: Cholecystectomy Genitourinary: No Pertinent History Musculoskeletal: No Pertinent History, Orthopedic Surgery Female Surgical History: Tubal Ligation Other Surgical History: left rotator cuff in oct 2015. "leaky heart valve"; right thumb surgery, neck surgery Significant Family History: no pertinent family hx - Social History Smoking Status: Former smoker How long have you smoked: 6 YEARS Exposure to second hand smoke: No Drug Use: none - Social Determinants of Health Will the patient participate in the screening: Yes Do you worry about a steady place to live?: No Do you have any problems with any of the following?: No known problems In the past 12 months,have you had to go without utilities?: No Transportation Issues: No Has anyone in your support network made you feel unsafe?: No Have you or anyone in your house had to go w/o enough food: No - Nursing Vital Signs Nursing Vital Signs: Initial Vital Signs Temperature 96.5 F 09/17/25 09:34 Pulse Rate 75 09/17/25 09:34 Respiratory Rate 18 09/17/25 09:34 Blood Pressure 132/77 09/17/25 09:34 O2 Sat by Pulse Oximetry 99 09/17/25 09:34 Pain Scale Pain Intensity 9 - Physical Exam General Appearance: no apparent distress, alert Eye Exam: PERRL/EOMI, eyes nml inspection Ears, Nose, Throat Exam: normal ENT inspection, moist mucous membranes Neck Exam: normal inspection, full range of motion Respiratory Exam: normal breath sounds, lungs clear, No respiratory distress Cardiovascular Exam: regular rate/rhythm, normal heart sounds, normal peripheral pulses Gastrointestinal/Abdomen Exam: soft, normal bowel sounds, No tenderness, No mass Back Exam: normal inspection, normal range of motion, No CVA tenderness, No vertebral tenderness Extremity Exam: normal inspection, normal range of motion, pelvis stable Neurologic Exam: alert, oriented x 3, cooperative, normal mood/affect, sensation nml, No motor deficits Skin Exam: normal color, warm, dry, No rash Lymphatic Exam: No adenopathy SpO2 Interpretation: normal SpO2: 99 O2 Delivery: Room Air - Course Nursing assessment & vital signs reviewed: Yes EKG Interpreted by Me: RATE (75), Sinus Rhythm, NORMAL AXIS, NORMAL INTERVALS, NORMAL QRS - CT Exams Head CT Interpretation: Tele-radiologist Report (Normal CT head without contrast. Normal CTA head with contrast) Soft Tissue Neck CT Interpretation: Tele-radiologist Report (Normal CTA neck with contrast) Ordered Tests: Active Orders 24 hr Category Date Time Status Patient Access Representative STAT Care 09/17/25 09:40 Active Clean Catch Urine Specimen STAT Care 09/17/25 10:37 Active EKG-ER Only STAT Care 09/17/25 09:39 Active IV Insertion STAT Care 09/17/25 09:39 Active Pulse Oximetry (ED) STAT Care 09/17/25 09:[address] ANGIOGRAPHY NECK [CT] Stat Exams 09/17/25 10:04 Completed CTA HEAD W AND/OR WO CONTRAST [CT] Stat Exams 09/17/25 10:03 Completed CBC W DIFF Stat Lab 09/17/25 10:10 Completed CMP Stat Lab 09/17/25 10:10 Completed ETHYL ALCOHOL Stat Lab 09/17/25 10:10 Completed Lactic Acid Stat Lab 09/17/25 10:13 Completed MAGNESIUM Stat Lab 09/17/25 10:10 Completed TROPONIN Q4H Lab 09/17/25 10:10 Completed TROPONIN Q4H Lab 09/17/25 13:45 Ordered TROPONIN Q4H Lab 09/17/25 17:45 Ordered UA W/RFX UR CULTURE Stat Lab 09/17/25 10:39 Completed Urine Triage Profile Stat Lab 09/17/25 10:39 Received Medication Summary Discontinued Medications Generic Name Dose Route Start Last Admin Trade Name Freq PRN Reason Stop Dose Admin Nitroglycerin 0.4 mg 09/17/25 07:45 09/17/25 11:21 Nitroglycerin 0.4 Mg (Ed) 0.4 Mg Tab.Subl SL 09/17/25 07:46 Not Given STAT ONE Lab/Rad Data: Laboratory Result Diagrams 09/17/25 10:10 09/17/25 10:10 Laboratory Results 10/28/25 10/28/25 10/28/25 Range/Units 10:39 10:13 10:10 WBC (3.98-10.04) x10^3/uL RBC (3.93-5.22) x10^6/uL Hgb (11.2-15.7) g/dL Hct (34.1-44.9) % MCV (79.4-94.8) fL MCH (25.6-32.2) pg MCHC (32.2-35.5) g/dL RDW (11.7-14.4) % Plt Count (182-369) x10^3/uL MPV (9.4-12.3) fL Gran % (34.0-71.1) % Immature Gran % (Auto) (0.001-0.429) % Nucleat RBC Rel Count (0.00-0.2) % Eos # (Auto) (0.04-0.36) x10^3/uL Immature Gran # (Auto) (0.001-0.031) x10^3u/L Absolute Lymphs (auto) (1.18-3.74) x10^3/uL Absolute Monos (auto) (0.24-0.86) x10^3/uL Absolute Nucleated RBC (0.00-0.012) x10^3u/L Lymphocytes % (19.3-51.7) % Monocytes % (4.7-12.5) % Eosinophils % (0.7-5.8) % Basophils % (0.1-1.2) % Absolute Granulocytes (1.56-6.13) x10^3/uL Basophils # (0.01-0.08) x10^3/uL Sodium (135-145) mmol/L Potassium (3.5-5.1) mmol/L Chloride (98-107) mmol/L Carbon Dioxide (22-30) mmol/L Anion Gap (5-15) MEQ/L BUN (7-17) mg/dL Creatinine (0.52-1.04) mg/dL Estimated GFR ML/MIN Glucose (74-106) mg/dL Lactic Acid 2.3 H (0.4-2.0) Calcium (8.4-10.2) mg/dL Magnesium (1.6-2.3) mg/dL Total Bilirubin (0.2-1.3) mg/dL AST (14-36) U/L ALT (0-35) U/L Alkaline Phosphatase (38-126) U/L Troponin I < 0.012 (0.000-0.033) ng/mL Serum Total Protein (6.3-8.2) g/dL Albumin (3.5-5.0) g/dL Urine Color Yellow (Yellow) Urine Appearance Clear (Clear) Urine pH 7.0 (4.6-8.0) Ur Specific [place] <=1.005 (1.005-1.030) Urine Protein Negative (Negative) Urine Glucose (UA) Negative (Negative) mg/dL Urine Ketones Negative (Negative) Urine Blood Negative (Negative) Urine Nitrite Negative (Negative) Urine Bilirubin Negative (Negative) Urine Urobilinogen 0.2 (0.2) mg/dL Ur Leukocyte Esterase Trace A (Negative) U Hyaline Cast (Auto) NONE SEEN (0-2) /LPF Urine Microscopic RBC 0-2 (0-5) /HPF Urine Microscopic WBC 0-2 (0-5) /HPF Ur Epithelial Cells None Seen (None Seen) /HPF Urine Bacteria None Seen (None Seen) /HPF Urine Culture Reflexed NO (NO) Ethyl Alcohol (0-10) mg/dL 09/17/25 09/17/25 Range/Units 10:10 10:10 WBC 4.7 (3.98-10.04) x10^3/uL RBC 3.36 L (3.93-5.22) x10^6/uL Hgb 9.7 L (11.2-15.7) g/dL Hct 30.0 L (34.1-44.9) % MCV 89.3 (79.4-94.8) fL MCH 28.9 (25.6-32.2) pg MCHC 32.3 (32.2-35.5) g/dL RDW 13.0 (11.7-14.4) % Plt Count 141 L (182-369) x10^3/uL MPV 10.6 (9.4-12.3) fL Gran % 58.3 (34.0-71.1) % Immature Gran % (Auto) 0.4 (0.001-0.429) % Nucleat RBC Rel Count 0.0 (0.00-0.2) % Eos # (Auto) 0.10 (0.04-0.36) x10^3/uL Immature Gran # (Auto) 0.02 (0.001-0.031) x10^3u/L Absolute Lymphs (auto) 1.47 (1.18-3.74) x10^3/uL Absolute Monos (auto) 0.36 (0.24-0.86) x10^3/uL Absolute Nucleated RBC 0.00 (0.00-0.012) x10^3u/L Lymphocytes % 31.2 (19.3-51.7) % Monocytes % 7.6 (4.7-12.5) % Eosinophils % 2.1 (0.7-5.8) % Basophils % 0.4 (0.1-1.2) % Absolute Granulocytes 2.74 (1.56-6.13) x10^3/uL Basophils # 0.02 (0.01-0.08) x10^3/uL Sodium 132 L (135-145) mmol/L Potassium 4.4 (3.5-5.1) mmol/L Chloride 99 (98-107) mmol/L Carbon Dioxide 25 (22-30) mmol/L Anion Gap 12.4 (5-15) MEQ/L BUN 9 (7-17) mg/dL Creatinine 0.84 (0.52-1.04) mg/dL Estimated GFR 79.5 ML/MIN Glucose 113 H (74-106) mg/dL Lactic Acid (0.4-2.0) Calcium 8.9 (8.4-10.2) mg/dL Magnesium 1.3 L (1.6-2.3) mg/dL Total Bilirubin 0.60 (0.2-1.3) mg/dL AST 39 H (14-36) U/L ALT 26 (0-35) U/L Alkaline Phosphatase 123 (38-126) U/L Troponin I (0.000-0.033) ng/mL Serum Total Protein 6.8 (6.3-8.2) g/dL Albumin 4.0 (3.5-5.0) g/dL Urine Color (Yellow) Urine Appearance (Clear) Urine pH (4.6-8.0) Ur Specific [place] (1.005-1.030) Urine Protein (Negative) Urine Glucose (UA) (Negative) mg/dL Urine Ketones (Negative) Urine Blood (Negative) Urine Nitrite (Negative) Urine Bilirubin (Negative) Urine Urobilinogen (0.2) mg/dL Ur Leukocyte Esterase (Negative) U Hyaline Cast (Auto) (0-2) /LPF Urine Microscopic RBC (0-5) /HPF Urine Microscopic WBC (0-5) /HPF Ur Epithelial Cells (None Seen) /HPF Urine Bacteria (None Seen) /HPF Urine Culture Reflexed (NO) Ethyl Alcohol < 10 (0-10) mg/dL - Progress Progress: improved Progress Note: Case discussed with teleneurologist who advises admission for MRI. I spoke to neurologist at 11:48 AM 09/17/25 12:06 60-year-old female past medical history significant for seizures migraines hypertension hyperlipidemia diabetes COPD anxiety depression presents to our ED for evaluation of possible seizure. Patient states at approximately 8 AM this morning she was at home sitting down watching TV. Patient states that she later awoke with a migraine. Patient states this has happened in the past and she attributes these episodes to a seizure. Physical exam nonremarkable. No focal or lateralizing symptomology. CT head without contrast. CTA head and neck are all negative. No acute pathology. Patient has normocytic anemia of 9.7 that appears to be chronic. Patient has a hypomagnesemia with a lactic acidosis of 2.2. Patient will be admitted for further evaluation and treatment. Plan of care discussed with patient. She agrees to admission to [facility] for further evaluation and treatment. History obtained from patient Differential diagnosis includes seizure, complex migraine, TIA We considered tPA however patient is not a tPA candidate. NIH score is 1. After discussing case with teleneurologist teleneurologist states patient is not a candidate for tPA Portions of this note were created with voice recognition technology. There may be grammatical, spelling, punctuation or sound alike errors Complexity of problems addressed is moderate acute complicated. No critical care time. Complex of data reviewed and analyzed is extensive. Test ordered chest reviewed results analyzed and correlated clinically with history and physical exam. Risk of complication and or risk of morbidity/mortality of patient management is high. Patient requires hospitalization for further evaluation and treatment. Vital stable. Time spent to admit patient is approximately 20 minutes. Plan of care established for shared decision making. No social determinants of health present to impede follow-up. Dr. Weir's admission at 12:15 PM Portions of this note were created with voice recognition technology. There may be grammatical, spelling, punctuation or sound alike errors 09/17/25 12:10 09/17/25 12:11 Counseled pt/family regarding: lab results, diagnosis, rad results - Departure Departure Disposition: Observation Clinical Impression: Lactic acidosis, Migraine, Seizure, Hypomagnesemia, Hyponatremia Syncope Qualifiers: Syncope type: unspecified Qualified Code(s): R55 - Syncope and collapse Condition: Stable Critical Care Time: No Referrals: CAROL ANN ALCARAZ MD [Primary Care Provider, INTERNAL MEDICINE] - Follow up/PCP as directed
[2025-09-17 10:17] LABS: BASOPHIL % 0.4 % (0.1-1.2); Basophil (Absolute #) 0.02 x10^3/uL (0.01-0.08); Eosinophil (Absolute #) 0.10 x10^3/uL (0.04-0.36); Hematocrit 30.0 % (34.1-44.9); Hemoglobin 9.7 g/dL (11.2-15.7); IMMATURE GRAN # 0.02 x10^3u/L (0.001-0.031); IMMATURE GRAN % 0.4 % (0.001-0.429); Lymphocyte (Absolute #) 1.47 x10^3/uL (1.18-3.74); Mean Corpuscular Hemoglobin 28.9 pg (25.6-32.2); Mean Corpuscular Hgb Concent. 32.3 g/dL (32.2-35.5); Monocyte (Absolute #) 0.36 x10^3/uL (0.24-0.86); NUCLEATED RBC # 0.00 x10^3u/L (0.00-0.012); NUCLEATED RBC % 0.0 % (0.00-0.2); Platelet Count 141 x10^3/uL (182-369); Red Blood Count 3.36 x10^6/uL (3.93-5.22); White Blood Count 4.7 x10^3/uL (3.98-10.04)
[2025-09-17 10:28] LABS: Calcium 8.9 mg/dL (8.4-10.2); Carbon Dioxide 25 mmol/L (22-30); Creatinine 1 0.84 mg/dL (0.52-1.04); EST GLOMERULAR FILTRATION RATE 79.5 ML/MIN; ETHYL ALCOHOL < 10 mg/dL (0-10); Glucose 113 mg/dL (74-106); Potassium 4.4 mmol/L (3.5-5.1); SGOT/AST 39 U/L (14-36); SGPT/ALT 26 U/L (0-35); Total Protein 6.8 g/dL (6.3-8.2)
[2025-09-17] MEDS: Nitrostat 0.4 MG (ED) SL ONE (11:21)
--- NOTE | 2025-09-17 11:30 | XRAY ---
Indication: “Stroke like symptoms.” Conventional contrast-enhanced CTA neck performed using 80 cc Isovue 370 contrast. 2D sagittal and coronal reformatted images obtained. Additional 3D reformatted images obtained using separate workstation. Comparison: None Normal CTA appearance to visualized aortic arch, right brachiocephalic, left common, and left subclavian arteries. Normal CTA appearance to the common carotid, carotid bulb, internal carotid, and external carotid arteries bilaterally. Normal CTA appearance to vertebral arteries bilaterally. Visualized soft tissues are negative for pathologic lymphadenopathy. Parotid and submandibular glands are bilaterally symmetric. Thyroid gland enhances homogeneously. Supra and infraglottic airway widely patent. Osseous structures intact with osteopenia, mild/moderate multilevel cervical degenerative spondylosis, and C4-C7 fusion with grossly intact anterior hardware. Patient edentulous. Lung apices clear. Impression: Normal CTA neck with contrast exam. Incidental chronic bony findings.
--- NOTE | 2025-09-17 11:38 | XRAY ---
Indication: “Stroke like symptoms.” Initial CT head performed without contrast. Then conventional contrast-enhanced CTA head performed using 80 cc Isovue 370 contrast. 2D sagittal and coronal reformatted images obtained. Additional 3D reformatted images obtained using separate workstation. Comparison: CT head without contrast September 29, [address]24. CT head without contrast again demonstrates normal brain parenchyma, ventricles, and bony calvarium for patient's age. Paranasal sinuses and mastoid air cells are clear. CTA demonstrates bilaterally symmetric internal carotid arteries without critical stenosis, obstruction, or arteriosclerotic disease. Normal carotid terminus with normal branching A1 and M1 segments bilaterally. More distal anterior cerebral and middle cerebral arteries are normal in CTA appearance bilaterally. Posterior circulation demonstrates normal CTA appearance to basilar, left/right posterior cerebral, left/right superior cerebellar, and left/right anterior inferior cerebellar arteries. Venous sinuses/drainage unremarkable. Brain parenchyma is negative for abnormal intra or extra-axial enhancement. Impression: 1. Continued normal CT head without contrast exam. 2. Normal CTA head with contrast exam.
[2025-09-17 11:39] LABS: Glucose, Urine Negative (Negative); Protein,Urine Dip Negative (Negative); RBC 0-2 /HPF (0-5); WBC 0-2 /HPF (0-5)
--- NOTE | 2025-09-17 11:56 | PCM.CONS ---
History of Present Illness - Neuro Consultation Date of Consultation Date: 09/17/25 ED Arrival Date & Time: 09/17/25 09:23 Requesting Provider: Dr. Mccall Providers: Attending Provider: ED Provider: BEVERLY MCCALL Consulting Provider: NEREYDA MEJIA DO Reason for Consult: Left numbness, headache cc:: The requesting physician will be sent a copy of the consult. - Chief Complaint Patient Subjective Stated Complaint: Headache, numbness - History of Present Illness HPI: The patient is a 60F PMH nonepileptic events, migraine, HTN, HLD presents with LOC, headache and left numbness. LKN 0800 she was watching TV when she had LOC. She woke up unclear how long after and felt groggy, with generalized headache, and left numbness. She also felt right hand numbness and generalized weakness. She says this often happens after one of her "seizures" for which she has a Neurologist who reportedly told her they are not seizure but instead stress induced, nonepileptic events so she is not on seizure meds. Usually the headaches don't last this long. In the ED NIHSS 4. The only clear focal symptoms is left sided numbness. CTH no acute abnormality. CTA H/N no sig stenosis or occlusion. No TNK given her only new symptom is headache and left numbness nondisabling symptoms, no other clear focal weakness, speech change, vision loss, etc. She is on ASA 81mg qd at home. FH: noncontributory SH: no drugs Review of Systems - Review of Systems Review of Systems (Narrative): Constitutional: No fever/chills, no weight loss/gain Eyes: +blurry vision left eye ENT: No hearing loss/tinnitus, no nasal congestion Cardiovascular: No chest pain, no palpitations Respiratory: No shortness of breath, no cough Gastrointestinal: No nausea/vomiting, no diarrhea Genitourinary: No urinary incontinence, no urinary difficulty Musculoskeletal: No significant joint pain, no back pain, no neck pain, no muscle cramps Skin: No rashes, no abrasions Neurological: +headache, +generalized weakness, +numbness Psychiatric: No depression, no anxiety Endocrine: No heat or cold intolerance, no change in appetite Hematologic/Lymphatic: No easy bruising, no anemia Allergic/Immunologic: No allergic response to food, no swollen lymph nodes - Past Medical History Past Medical History: Yes Neurological History: Migraines, Peripheral Neuropathy, Seizures ENT History: Cataracts Cardiac History: High Cholesterol, Hypertension Respiratory History: Asthma, COPD Endocrine Medical History: Diabetes Type II Musculoskelatal History: Degenerative Disk Disease, Osteoarthritis GI Medical History: Diverticulitis, GERD History: No Pertinent History Pyscho-Social History: Anxiety, Depression Reproductive Disorders: No Pertinent History Comment: 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 LEAKING HEART VALVE, gastroporesis - Past Surgical History Past Surgical History: Yes Neuro Surgical History: No Pertinent History Cardiac History: Angioplasty, Cardiac Catheterization Respiratory Surgery: No Pertinent History GI Surgical History: Cholecystectomy Genitourinary Surgical Hx: No Pertinent History Musculskeletal Surgical Hx: No Pertinent History, Orthopedic Surgery Female Surgical History: Tubal Ligation Other Surgical History: left rotator cuff in oct 2015. "leaky heart valve"; right thumb surgery, neck surgery Significant Family History: no pertinent family hx - Social History Smoking Status: Former smoker How long have you smoked: 6 YEARS Exposure to second hand smoke: No Alcohol: Occasionally Drug Use: none - Social Determinants of Health Will the patient participate in the screening: Yes Do you worry about a steady place to live?: No Do you have any problems with any of the following?: No known problems In the past 12 months,have you had to go without utilities?: No Have you or anyone in your house had to go without enough: No Transportation Issues: No Has anyone in your support network made you feel unsafe?: No Physical Exam - Vital Signs Vital Signs: Vital Signs - 24 hr 09/17/25 09/17/25 09/17/25 09:34 09:39 10:19 Temperature 96.5 F Pulse Rate 76 Respiratory 16 Rate Blood Pressure 132/77 153/86 Blood Pressure 132/77 [Right Arm] O2 Sat by Pulse 98 98 Oximetry 09/17/25 09/17/25 11:16 11:28 Temperature Pulse Rate 72 Respiratory 25 H Rate Blood Pressure 136/109 Blood Pressure [Right Arm] O2 Sat by Pulse 97 99 Oximetry - Physical Exam General: no acute distress, well developed Mental Status: alert, awake and oriented, fund of knowledge, memory at baseline, fluent speech, no dysarthria Cranial nerves: extra ocular movements intact, unable to visualize fundi through telemedicine, sensation intact, face is symmetric (Mild left nasolabial flattening at rest but symmetric with smile), hearing intact, trapezii intact strong, tongue midline, Visual [place] are full to finger counting, no extinction to double Motor: no drift noted (bilateral legs sustain antigravity but only a few inches off the bed) Sens:: negative babinski reflex (Left face, arm and leg reduced LT compared to right) Movement:: no tremors noted MSR:: unable to assess through telemedicine, no clonus noted. Gait: deferred - NIHSS Stroke Scale Date Completed: 09/17/25 Time Stroke Scale Completed: 11:08 Level of Consciousness: Alert Level of Questions: Answers both correctly LOC Commands: Obeys both correctly Best Gaze: Normal Visual: No visual loss Facial Palsy: Minor Motor Arm-Left: No Drift Motor Arm-Right: No Drift Motor Leg-Left: Drift Motor Leg Right: Drift Limb Ataxia: Absent Sensory: Partial Loss Best Language: No apashia Dysarthria: Normal aticulation Extinction and Inattention: No Neglect Stroke Risk Level: 4 Results - Labs Lab/Micro Results: Lab Results-Last 24 Hours 09/17/25 09/17/25 09/17/25 Range/Units 10:10 10:10 10:10 WBC 4.7 (3.98-10.04) x10^3/uL RBC 3.36 L (3.93-5.22) x10^6/uL Hgb 9.7 L (11.2-15.7) g/dL Hct 30.0 L (34.1-44.9) % MCV 89.3 (79.4-94.8) fL MCH 28.9 (25.6-32.2) pg MCHC 32.3 (32.2-35.5) g/dL RDW 13.0 (11.7-14.4) % Plt Count 141 L (182-369) x10^3/uL MPV 10.6 (9.4-12.3) fL Gran % 58.3 (34.0-71.1) % Immature Gran % (Auto) 0.4 (0.001-0.429) % Nucleat RBC Rel Count 0.0 (0.00-0.2) % Eos # (Auto) 0.10 (0.04-0.36) x10^3/uL Immature Gran # (Auto) 0.02 (0.001-0.031) x10^3u/L Absolute Lymphs (auto) 1.47 (1.18-3.74) x10^3/uL Absolute Monos (auto) 0.36 (0.24-0.86) x10^3/uL Absolute Nucleated RBC 0.00 (0.00-0.012) x10^3u/L Lymphocytes % 31.2 (19.3-51.7) % Monocytes % 7.6 (4.7-12.5) % Eosinophils % 2.1 (0.7-5.8) % Basophils % 0.4 (0.1-1.2) % Absolute Granulocytes 2.74 (1.56-6.13) x10^3/uL Basophils # 0.02 (0.01-0.08) x10^3/uL Sodium 132 L (135-145) mmol/L Potassium 4.4 (3.5-5.1) mmol/L Chloride 99 (98-107) mmol/L Carbon Dioxide 25 (22-30) mmol/L Anion Gap 12.4 (5-15) MEQ/L BUN 9 (7-17) mg/dL Creatinine 0.84 (0.52-1.04) mg/dL Estimated GFR 79.5 ML/MIN Glucose 113 H (74-106) mg/dL Lactic Acid (0.4-2.0) Calcium 8.9 (8.4-10.2) mg/dL Magnesium 1.3 L (1.6-2.3) mg/dL Total Bilirubin 0.60 (0.2-1.3) mg/dL AST 39 H (14-36) U/L ALT 26 (0-35) U/L Alkaline Phosphatase 123 (38-126) U/L Troponin I < 0.012 (0.000-0.033) ng/mL Serum Total Protein 6.8 (6.3-8.2) g/dL Albumin 4.0 (3.5-5.0) g/dL Urine Color (Yellow) Urine Appearance (Clear) Urine pH (4.6-8.0) Ur Specific [place] (1.005-1.030) Urine Protein (Negative) Urine Glucose (UA) (Negative) mg/dL Urine Ketones (Negative) Urine Blood (Negative) Urine Nitrite (Negative) Urine Bilirubin (Negative) Urine Urobilinogen (0.2) mg/dL Ur Leukocyte Esterase (Negative) U Hyaline Cast (Auto) (0-2) /LPF Urine Microscopic RBC (0-5) /HPF Urine Microscopic WBC (0-5) /HPF Ur Epithelial Cells (None Seen) /HPF Urine Bacteria (None Seen) /HPF Urine Culture Reflexed (NO) Ethyl Alcohol < 10 (0-10) mg/dL 09/17/25 09/17/25 Range/Units 10:13 10:39 WBC (3.98-10.04) x10^3/uL RBC (3.93-5.22) x10^6/uL Hgb (11.2-15.7) g/dL Hct (34.1-44.9) % MCV (79.4-94.8) fL MCH (25.6-32.2) pg MCHC (32.2-35.5) g/dL RDW (11.7-14.4) % Plt Count (182-369) x10^3/uL MPV (9.4-12.3) fL Gran % (34.0-71.1) % Immature Gran % (Auto) (0.001-0.429) % Nucleat RBC Rel Count (0.00-0.2) % Eos # (Auto) (0.04-0.36) x10^3/uL Immature Gran # (Auto) (0.001-0.031) x10^3u/L Absolute Lymphs (auto) (1.18-3.74) x10^3/uL Absolute Monos (auto) (0.24-0.86) x10^3/uL Absolute Nucleated RBC (0.00-0.012) x10^3u/L Lymphocytes % (19.3-51.7) % Monocytes % (4.7-12.5) % Eosinophils % (0.7-5.8) % Basophils % (0.1-1.2) % Absolute Granulocytes (1.56-6.13) x10^3/uL Basophils # (0.01-0.08) x10^3/uL Sodium (135-145) mmol/L Potassium (3.5-5.1) mmol/L Chloride (98-107) mmol/L Carbon Dioxide (22-30) mmol/L Anion Gap (5-15) MEQ/L BUN (7-17) mg/dL Creatinine (0.52-1.04) mg/dL Estimated GFR ML/MIN Glucose (74-106) mg/dL Lactic Acid 2.3 H (0.4-2.0) Calcium (8.4-10.2) mg/dL Magnesium (1.6-2.3) mg/dL Total Bilirubin (0.2-1.3) mg/dL AST (14-36) U/L ALT (0-35) U/L Alkaline Phosphatase (38-126) U/L Troponin I (0.000-0.033) ng/mL Serum Total Protein (6.3-8.2) g/dL Albumin (3.5-5.0) g/dL Urine Color Yellow (Yellow) Urine Appearance Clear (Clear) Urine pH 7.0 (4.6-8.0) Ur Specific [place] <=1.005 (1.005-1.030) Urine Protein Negative (Negative) Urine Glucose (UA) Negative (Negative) mg/dL Urine Ketones Negative (Negative) Urine Blood Negative (Negative) Urine Nitrite Negative (Negative) Urine Bilirubin Negative (Negative) Urine Urobilinogen 0.2 (0.2) mg/dL Ur Leukocyte Esterase Trace A (Negative) U Hyaline Cast (Auto) NONE SEEN (0-2) /LPF Urine Microscopic RBC 0-2 (0-5) /HPF Urine Microscopic WBC 0-2 (0-5) /HPF Ur Epithelial Cells None Seen (None Seen) /HPF Urine Bacteria None Seen (None Seen) /HPF Urine Culture Reflexed NO (NO) Ethyl Alcohol (0-10) mg/dL - Radiology Orders Radiology Orders: Radiology Procedures Category Date Time Status CT ANGIOGRAPHY NECK [CT] Stat Exams 09/17/25 10:04 Completed CTA HEAD W AND/OR WO CONTRAST [CT] Stat Exams 09/17/25 10:03 Completed Impressions & Recommendations - ED Arrival Time ED Arrival Date & Time: ED Arrival Date and Time 09/17/25 09:23 Last known well time: - NIHSS Candidate (No): Reason: Patient is not a candidate for EVT given absence of disabling deficits - Recommendations Recommendations: 60yo female PMH nonepileptic events, migraine with aura, HTN, HLD, DM presents with headache, left numbness and generalized weakness. Only clear new focal deficit is left numbness and subtle left facial asymmetry at rest but not clear weakness. Drift in legs is equal. Also has some right hand numbness as well. Lower suspicion for ischemic event given symptoms but should rule out. Suspicious for migraine with aura, HTN urgency, other. She sometimes has symptoms like this after a nonepileptic event but not this severe. Recommendations: -Tele -Permissive HTN <220/<110 for 24hrs then normotension -MRI brain with and without -Continue home ASA 81mg qd -Continue home statin -LDL, A1c, UA, CXR -TTE if MRI with stroke -Can give migraine cocktail: Benadryl 12.5mg IV, Toradol 15mg IV, Compazine 10mg IV -No seizure meds given reported hx of nonepileptic events -PT/OT/PRINCIPAL BIOSTATISTICIAN Impression and recommendation were discussed with Dr. BEVERLY MCCLAL Thank you for allowing us to participate in this patient's care. Please call [facility] with questions, concerns, or change in patient's neurological status. This consult was performed via secure telemedicine audio/visual platform with RN assisting at bedside. Patient identity verified and consent obtained. TIQ recieved at 1120 Neuro Cart Time: 1123 Assessment & Plan - Encounter Encounter: "The entirety of this encounter was performed via Telemedicine using audio and visual "
[2025-09-17] MEDS: Magnesium 1 Gm / 100 Ml D5W*** 100 ML IV SCH (12:08)
[2025-09-17] MEDS ORDERED: Compazine 10 MG/2 ML ONE (12:18)
[2025-09-17] MEDS: Compazine 10 MG/2 ML IV ONE (12:19)
[2025-09-17 12:55] LABS: Amphetamine,Urine NEGATIVE (NEGATIVE); Barbiturate,Urine NEGATIVE (NEGATIVE); Benzodiazepine,Urine NEGATIVE (NEGATIVE); Cocaine,Urine NEGATIVE (NEGATIVE); Methadone,Urine NEGATIVE (NEGATIVE); Opiate,Urine NEGATIVE (NEGATIVE); PCP,Urine NEGATIVE (NEGATIVE); THC,Urine NEGATIVE (NEGATIVE)
--- NOTE | 2025-09-17 13:29 | PCM.HP ---
History of Present Illness - Chief Complaint Chief Complaint: Seizure, migraine, syncope Date: 09/17/25 History of Present Illness: is a 60 year old female with a pmhx of IBS, seizures (no home meds), HTN, migraines, HLD, DMII, anxiety/depressin, COPD, and liver disease who presented to ED 09/17/25 after experiencing an episode consistent with prior seizure-like events. She described the onset earlier this morning while seated on the couch; she felt spacey, then lost awareness and awoke feeling foggy, weak, and nauseated. Event was unwitnessed. She noted an aura preceding the event, characterized by disturbance in her left peripheral vision. Following the episode, she experienced difficulty finding words and mild right-sided weakness, though she reports returning to baseline by the time of evaluation. She endorsed intermittent unsteady gait for the past month. She follows with Dr. Rendon (Neurology, [facility]) and recently underwent an EEGreported as negativeand was scheduled for cervical MRI and X-ray. Neurology previously suspected her ev ents to be stress-induced, and she is not maintained on antiepileptic therapy. In the ED, initial vitals were stable; hypertension (167/106 ) was noted but resolved spontaneously. EKG demonstrated normal sinus rhythm (rate 75 bpm, normal axis and intervals). CT head and CTA head/neck showed no acute findings. Laboratory evaluation revealed normocytic anemia (Hgb 9.7, near baseline 9.910.2), mild hyponatremia (Na 132), and mild lactic acidosis (lactate 2.3 - 2.2 on repeat). Mag level was low at 1.3 and replenished in ED. Troponin was within normal limits. Urinalysis and urine drug screen were unremarkable. Neurology was consulted and deemed her symptoms non-disabling; given low suspicion for acute ischemic stroke, no thrombolytic therapy (TnK) was administered. Observation planned with MRI w/wo per neurology recommendations. Patient received nitro, compazine, and mag sulfate in ED. - Review of Systems Constitutional: Weakness Eyes: Vision Changes (left eye -peripheral vision) Ears, Nose, & Throat: No Symptoms Respiratory: No Symptoms Cardiac: No Symptoms Abdominal/Gastrointestinal: Nausea Genitourinary Symptoms: Dysuria, Urinary Retention Musculoskeletal: No Symptoms Skin: No Symptoms Neurological: Focal Weakness (right hand), Parasthesia (left hand) Endocrine: No Symptoms Hematologic/Lymphatic: Anemia Immunological/Allergic: No Symptoms Medications & Allergies Home Medications: Home Medication List Meclizine HCl 25 mg [Antivert 25 mg] 25 mg PO BID 02/21/18 [History Confirmed 09/17/25] Ropinirole HCl [Requip] 2 mg PO .1700;2200 02/21/18 [History Confirmed 09/17/25] Gabapentin 300 mg PO TID 07/15/20 [History Confirmed 09/17/25] Metformin HCl 500 mg [Glucophage 500 MG] 1,000 mg PO BID 07/15/20 [History Confirmed 09/17/25] Pravastatin Sodium 20 mg PO HS 11/16/20 [History Confirmed 09/17/25] lisinopriL [Lisinopril] 5 mg PO HS 02/10/22 [History Confirmed 09/17/25] modafiniL [Modafinil] 200 mg PO DAILY 02/10/22 [History Confirmed 09/17/25] Albuterol Sulfate [Albuterol Sulfate Hfa] 2 puff PO Q6H PRN PRN 11/04/23 [History Confirmed 09/17/25] Metoclopramide HCl 5 mg PO QID 11/04/23 [History Confirmed 09/17/25] Aspirin EC 81 mg [Ecotrin 81 mg] 81 mg PO DAILY 06/17/24 [History Confirmed 09/17/25] Omeprazole 40 mg PO BID 06/17/24 [History Confirmed 09/17/25] carvediloL [Carvedilol] 18.75 mg PO BID 06/17/24 [History Confirmed 09/17/25] Albuterol 2.5 mg/3 ml Neb [Proventil 2.5 mg/3 ml Neb] 3 ml IH Q6HPRN PRN 09/29/24 [History Confirmed 09/17/25] Insulin Aspart [Novolog] 26 unit SQ .BREAKFAST, DINNER 06/19/25 [History Confirmed 09/17/25] Insulin Glargine,Hum.rec.anlog [Basaglar Tempo Pen U-100] 50 units SQ DAILY 06/19/25 [History Confirmed 09/17/25] Semaglutide [Ozempic] 1 mg SQ WEEKLY 06/19/25 [History Confirmed 09/17/25] Erenumab-Aooe [Aimovig Autoinjector] 70 mg SQ .MONTHLY 09/17/25 [History Confirmed 09/17/25] Fluticasone Propion/Salmeterol [Wixela 500-50 Inhub] 1 inh PO BID 09/17/25 [History Confirmed 09/17/25] Furosemide 20 mg [Lasix 20 mg] 20 mg PO DAILY 09/17/25 [History Confirmed 09/17/25] Insulin Aspart [NovoLOG Insulin] 24 units SQ LUNCH 09/17/25 [History Confirmed 09/17/25] SUMAtriptan succinate [Imitrex 50 mg] 50 mg PO . NEEDED PRN 09/17/25 [History Confirmed 09/17/25] Tizanidine HCl 4 mg PO TID 09/17/25 [History Confirmed 09/17/25] Allergies/Adverse Reactions: Allergies Allergy/AdvReac Type Severity Reaction Status Date / Time morphine Allergy Intermediate Verified 09/17/25 09:41 levofloxacin [From Levaquin] AdvReac Intermediate Verified 09/17/25 09:41 - Past Medical History Past Medical History: Yes Neurological History: Migraines, Peripheral Neuropathy, Seizures ENT History: Cataracts Cardiac History: High Cholesterol, Hypertension Respiratory History: Asthma, COPD, Sleep Apnea Endocrine Medical History: Diabetes Type II, Liver Disease Musculoskelatal History: Degenerative Disk Disease, Osteoarthritis GI Medical History: Diverticulitis, GERD, Gallbladder Disease, Irritable Bowel History: No Pertinent History Pyscho-Social History: Anxiety, Depression Reproductive Disorders: No Pertinent History Comment: 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 LEAKING HEART VALVE, gastroporesis. anemia - Past Surgical History Past Surgical History: Yes Neuro Surgical History: No Pertinent History Cardiac History: Angioplasty, Cardiac Catheterization Respiratory Surgery: No Pertinent History GI Surgical History: Cholecystectomy Genitourinary Surgical Hx: No Pertinent History Musculskeletal Surgical Hx: No Pertinent History, Orthopedic Surgery Female Surgical History: Tubal Ligation Other Surgical History: left rotator cuff in oct 2015. "leaky heart valve"; right thumb surgery, neck surgery Significant Family History: heart disease, cancer, diabetes, hypertension, stroke - Social History Smoking Status: Former smoker How long have you smoked: 6 YEARS Exposure to second hand smoke: No Alcohol: Occasionally Drug Use: none - Social Determinants of Health Will the patient participate in the screening: Yes Do you worry about a steady place to live?: No Do you have any problems with any of the following?: No known problems In the past 12 months,have you had to go without utilities?: No Have you or anyone in your house had to go without enough: No Transportation Issues: No Has anyone in your support network made you feel unsafe?: No - Physical Exam Vital Signs: Vital Signs - 24 hr Temp Pulse Resp BP BP Pulse Ox 09/17/25 12:48 97.6 F 78 16 154/76 96 09/17/25 12:17 99 09/17/25 12:00 23 167/106 94 L 09/17/25 11:30 18 141/98 98 09/17/25 11:16 72 25 H 136/109 97 09/17/25 10:19 153/86 09/17/25 09:39 98 09/17/25 09:34 96.5 F 76 16 132/77 132/77 98 General Appearance: no apparent distress Neurologic Exam: alert, oriented x 3, cooperative, motor weakness (left upper ext) Eye Exam: PERRL/EOMI Ears, Nose, Throat Exam: normal ENT inspection Neck Exam: normal inspection Respiratory Exam: normal breath sounds, lungs clear Cardiovascular Exam: regular rate/rhythm, normal heart sounds Gastrointestinal/Abdomen Exam: soft, normal bowel sounds Pelvic Exam: not done Rectal Exam: deferred Back Exam: normal inspection Extremity Exam: normal inspection Skin Exam: normal color Results - Labs Lab/Micro Results: Lab Results-Last 24 Hours 09/17/25 09/17/25 09/17/25 Range/Units 10:10 10:10 10:10 WBC 4.7 (3.98-10.04) x10^3/uL RBC 3.36 L (3.93-5.22) x10^6/uL Hgb 9.7 L (11.2-15.7) g/dL Hct 30.0 L (34.1-44.9) % MCV 89.3 (79.4-94.8) fL MCH 28.9 (25.6-32.2) pg MCHC 32.3 (32.2-35.5) g/dL RDW 13.0 (11.7-14.4) % Plt Count 141 L (182-369) x10^3/uL MPV 10.6 (9.4-12.3) fL Gran % 58.3 (34.0-71.1) % Immature Gran % (Auto) 0.4 (0.001-0.429) % Nucleat RBC Rel Count 0.0 (0.00-0.2) % Eos # (Auto) 0.10 (0.04-0.36) x10^3/uL Immature Gran # (Auto) 0.02 (0.001-0.031) x10^3u/L Absolute Lymphs (auto) 1.47 (1.18-3.74) x10^3/uL Absolute Monos (auto) 0.36 (0.24-0.86) x10^3/uL Absolute Nucleated RBC 0.00 (0.00-0.012) x10^3u/L Lymphocytes % 31.2 (19.3-51.7) % Monocytes % 7.6 (4.7-12.5) % Eosinophils % 2.1 (0.7-5.8) % Basophils % 0.4 (0.1-1.2) % Absolute Granulocytes 2.74 (1.56-6.13) x10^3/uL Basophils # 0.02 (0.01-0.08) x10^3/uL Sodium 132 L (135-145) mmol/L Potassium 4.4 (3.5-5.1) mmol/L Chloride 99 (98-107) mmol/L Carbon Dioxide 25 (22-30) mmol/L Anion Gap 12.4 (5-15) MEQ/L BUN 9 (7-17) mg/dL Creatinine 0.84 (0.52-1.04) mg/dL Estimated GFR 79.5 ML/MIN Glucose 113 H (74-106) mg/dL Lactic Acid (0.4-2.0) Calcium 8.9 (8.4-10.2) mg/dL Magnesium 1.3 L (1.6-2.3) mg/dL Total Bilirubin 0.60 (0.2-1.3) mg/dL AST 39 H (14-36) U/L ALT 26 (0-35) U/L Alkaline Phosphatase 123 (38-126) U/L Troponin I < 0.012 (0.000-0.033) ng/mL Serum Total Protein 6.8 (6.3-8.2) g/dL Albumin 4.0 (3.5-5.0) g/dL Urine Color (Yellow) Urine Appearance (Clear) Urine pH (4.6-8.0) Ur Specific Ledbetter (1.005-1.030) Urine Protein (Negative) Urine Glucose (UA) (Negative) mg/dL Urine Ketones (Negative) Urine Blood (Negative) Urine Nitrite (Negative) Urine Bilirubin (Negative) Urine Urobilinogen (0.2) mg/dL Ur Leukocyte Esterase (Negative) U Hyaline Cast (Auto) (0-2) /LPF Urine Microscopic RBC (0-5) /HPF Urine Microscopic WBC (0-5) /HPF Ur Epithelial Cells (None Seen) /HPF Urine Bacteria (None Seen) /HPF Urine Culture Reflexed (NO) Urine Opiates Level (NEGATIVE) Ur Methadone (NEGATIVE) Urine Barbiturates (NEGATIVE) Ur Phencyclidine (PCP) (NEGATIVE) Urine Amphetamine (NEGATIVE) U Benzodiazepine Level (NEGATIVE) Urine Cocaine (NEGATIVE) Urine Marijuana (THC) (NEGATIVE) Ethyl Alcohol < 10 (0-10) mg/dL 09/17/25 09/17/25 09/17/25 Range/Units 10:13 10:39 10:39 WBC (3.98-10.04) x10^3/uL RBC (3.93-5.22) x10^6/uL Hgb (11.2-15.7) g/dL Hct (34.1-44.9) % MCV (79.4-94.8) fL MCH (25.6-32.2) pg MCHC (32.2-35.5) g/dL RDW (11.7-14.4) % Plt Count (182-369) x10^3/uL MPV (9.4-12.3) fL Gran % (34.0-71.1) % Immature Gran % (Auto) (0.001-0.429) % Nucleat RBC Rel Count (0.00-0.2) % Eos # (Auto) (0.04-0.36) x10^3/uL Immature Gran # (Auto) (0.001-0.031) x10^3u/L Absolute Lymphs (auto) (1.18-3.74) x10^3/uL Absolute Monos (auto) (0.24-0.86) x10^3/uL Absolute Nucleated RBC (0.00-0.012) x10^3u/L Lymphocytes % (19.3-51.7) % Monocytes % (4.7-12.5) % Eosinophils % (0.7-5.8) % Basophils % (0.1-1.2) % Absolute Granulocytes (1.56-6.13) x10^3/uL Basophils # (0.01-0.08) x10^3/uL Sodium (135-145) mmol/L Potassium (3.5-5.1) mmol/L Chloride (98-107) mmol/L Carbon Dioxide (22-30) mmol/L Anion Gap (5-15) MEQ/L BUN (7-17) mg/dL Creatinine (0.52-1.04) mg/dL Estimated GFR ML/MIN Glucose (74-106) mg/dL Lactic Acid 2.3 H (0.4-2.0) Calcium (8.4-10.2) mg/dL Magnesium (1.6-2.3) mg/dL Total Bilirubin (0.2-1.3) mg/dL AST (14-36) U/L ALT (0-35) U/L Alkaline Phosphatase (38-126) U/L Troponin I (0.000-0.033) ng/mL Serum Total Protein (6.3-8.2) g/dL Albumin (3.5-5.0) g/dL Urine Color Yellow (Yellow) Urine Appearance Clear (Clear) Urine pH 7.0 (4.6-8.0) Ur Specific Ledbetter <=1.005 (1.005-1.030) Urine Protein Negative (Negative) Urine Glucose (UA) Negative (Negative) mg/dL Urine Ketones Negative (Negative) Urine Blood Negative (Negative) Urine Nitrite Negative (Negative) Urine Bilirubin Negative (Negative) Urine Urobilinogen 0.2 (0.2) mg/dL Ur Leukocyte Esterase Trace A (Negative) U Hyaline Cast (Auto) NONE SEEN (0-2) /LPF Urine Microscopic RBC 0-2 (0-5) /HPF Urine Microscopic WBC 0-2 (0-5) /HPF Ur Epithelial Cells None Seen (None Seen) /HPF Urine Bacteria None Seen (None Seen) /HPF Urine Culture Reflexed NO (NO) Urine Opiates Level NEGATIVE (NEGATIVE) Ur Methadone NEGATIVE (NEGATIVE) Urine Barbiturates NEGATIVE (NEGATIVE) Ur Phencyclidine (PCP) NEGATIVE (NEGATIVE) Urine Amphetamine NEGATIVE (NEGATIVE) U Benzodiazepine Level NEGATIVE (NEGATIVE) Urine Cocaine NEGATIVE (NEGATIVE) Urine Marijuana (THC) NEGATIVE (NEGATIVE) Ethyl Alcohol (0-10) mg/dL 09/17/25 09/17/25 Range/Units 12:19 12:30 WBC (3.98-10.04) x10^3/uL RBC (3.93-5.22) x10^6/uL Hgb (11.2-15.7) g/dL Hct (34.1-44.9) % MCV (79.4-94.8) fL MCH (25.6-32.2) pg MCHC (32.2-35.5) g/dL RDW (11.7-14.4) % Plt Count (182-369) x10^3/uL MPV (9.4-12.3) fL Gran % (34.0-71.1) % Immature Gran % (Auto) (0.001-0.429) % Nucleat RBC Rel Count (0.00-0.2) % Eos # (Auto) (0.04-0.36) x10^3/uL Immature Gran # (Auto) (0.001-0.031) x10^3u/L Absolute Lymphs (auto) (1.18-3.74) x10^3/uL Absolute Monos (auto) (0.24-0.86) x10^3/uL Absolute Nucleated RBC (0.00-0.012) x10^3u/L Lymphocytes % (19.3-51.7) % Monocytes % (4.7-12.5) % Eosinophils % (0.7-5.8) % Basophils % (0.1-1.2) % Absolute Granulocytes (1.56-6.13) x10^3/uL Basophils # (0.01-0.08) x10^3/uL Sodium (135-145) mmol/L Potassium (3.5-5.1) mmol/L Chloride (98-107) mmol/L Carbon Dioxide (22-30) mmol/L Anion Gap (5-15) MEQ/L BUN (7-17) mg/dL Creatinine (0.52-1.04) mg/dL Estimated GFR ML/MIN Glucose (74-106) mg/dL Lactic Acid 2.2 H (0.4-2.0) Calcium (8.4-10.2) mg/dL Magnesium (1.6-2.3) mg/dL Total Bilirubin (0.2-1.3) mg/dL AST (14-36) U/L ALT (0-35) U/L Alkaline Phosphatase (38-126) U/L Troponin I < 0.012 (0.000-0.033) ng/mL Serum Total Protein (6.3-8.2) g/dL Albumin (3.5-5.0) g/dL Urine Color (Yellow) Urine Appearance (Clear) Urine pH (4.6-8.0) Ur Specific Ledbetter (1.005-1.030) Urine Protein (Negative) Urine Glucose (UA) (Negative) mg/dL Urine Ketones (Negative) Urine Blood (Negative) Urine Nitrite (Negative) Urine Bilirubin (Negative) Urine Urobilinogen (0.2) mg/dL Ur Leukocyte Esterase (Negative) U Hyaline Cast (Auto) (0-2) /LPF Urine Microscopic RBC (0-5) /HPF Urine Microscopic WBC (0-5) /HPF Ur Epithelial Cells (None Seen) /HPF Urine Bacteria (None Seen) /HPF Urine Culture Reflexed (NO) Urine Opiates Level (NEGATIVE) Ur Methadone (NEGATIVE) Urine Barbiturates (NEGATIVE) Ur Phencyclidine (PCP) (NEGATIVE) Urine Amphetamine (NEGATIVE) U Benzodiazepine Level (NEGATIVE) Urine Cocaine (NEGATIVE) Urine Marijuana (THC) (NEGATIVE) Ethyl Alcohol (0-10) mg/dL - Radiology Impressions Radiology Exams & Impressions: Radiology Procedures Category Date Time Status CT ANGIOGRAPHY NECK [CT] Stat Exams 09/17/25 10:04 Completed CTA HEAD W AND/OR WO CONTRAST [CT] Stat Exams 09/17/25 10:03 Completed Assessment/Plan (1) Other symptoms and signs involving the nervous system Current Visit: Yes Status: Acute Assessment & Plan: -CT head and CTA neck/head negative for acute pathology. -Neurology consulted with recs for MRI brain with and without contrast; permissive hypertension (<220/110 mmHg) for 24 hours, then resume normotension goals; Continue aspirin 81 mg daily and home statin; Obtain LDL, A1c, CXR, and TTE if MRI confirms stroke -Migraine cocktail: Diphenhydramine 12.5 mg IV, Ketorolac 15 mg IV, Compazine 10 mg IV PRN headache. -No antiepileptic therapy initiated per prior negative EEG and history of stress-related nonepileptic events. -follows with Dr. Rendon neurology [facility] -PT/OT/GRADUATE ADVISOR evaluations to assess function and safety. -Reconsult neurology following MRI for definitive recommendations. Code(s): R29.818 - OTHER SYMPTOMS AND SIGNS INVOLVING THE NERVOUS SYSTEM (2) Hypomagnesemia Current Visit: Yes Status: Acute Assessment & Plan: -Mag level at 1.3- replenished in ED -recheck in a.m Code(s): E83.42 - HYPOMAGNESEMIA (3) Hyponatremia Current Visit: Yes Status: Acute Assessment & Plan: -mild at 132 -trend -Gentle hydration Code(s): E87.1 - HYPO-OSMOLALITY AND HYPONATREMIA (4) Lactic acidosis Current Visit: Yes Status: Acute Assessment & Plan: -Likely secondary to hypoperfusion during event. -Continue monitoring; no evidence of sepsis or tissue hypoxia -WBC reviewed and WNL, UA negative -will obtain CXR per neuro recs Code(s): E87.20 - ACIDOSIS, UNSPECIFIED (5) Normocytic anemia Current Visit: Yes Status: Acute Assessment & Plan: -Hgb 9.7 (baseline 10). -No acute bleeding or hemolysis. -Iron studies, occult stools -Monitor CBC; transfuse if Hgb <7 g/dL Code(s): D64.9 - ANEMIA, UNSPECIFIED (6) History of seizure Current Visit: Yes Status: Acute Assessment & Plan: -Follows with Dr. Justice KINSEY neurology as OP- reports negative EEG- no home meds- states neurology felt events were stress induced Code(s): Z87.898 - PERSONAL HISTORY OF OTHER SPECIFIED CONDITIONS (7) HTN (hypertension) Current Visit: Yes Status: Acute Assessment & Plan: -BP improved without intervention. Continue home antihypertensive regimen after permissive window ends. Code(s): I10 - ESSENTIAL (PRIMARY) HYPERTENSION (8) Liver disease Current Visit: Yes Status: Acute Assessment & Plan: -Pt follows with Dr. Jeffrey -No current treatment -LFTs reviewed and mild elevation of ast at 39 Code(s): K76.9 - LIVER DISEASE, UNSPECIFIED (9) Anxiety and depression Current Visit: Yes Status: Acute Assessment & Plan: -continue home meds Code(s): F41.9 - ANXIETY DISORDER, UNSPECIFIED; F32.A - DEPRESSION, UNSPECIFIED (10) Migraine Current Visit: Yes Status: Acute Assessment & Plan: -see above Code(s): G43.909 - MIGRAINE, UNSP, NOT INTRACTABLE, WITHOUT STATUS MIGRAINOSUS (11) Type 2 diabetes mellitus Current Visit: No Status: Acute Qualifiers: Diabetes mellitus predatory animal exterminator insulin use: with predatory animal exterminator use Diabetes mellitus complication status: with hyperglycemia Qualified Code(s): E11.65 - Type 2 diabetes mellitus with hyperglycemia; Z79.4 - joint terminal attack controller (current) use of insulin Assessment & Plan: -A1c -ADA diet -SSI (12) COPD (chronic obstructive pulmonary disease) Current Visit: No Status: Chronic Onset Date: ~02/24/18 Qualifiers: Emphysema type: unspecified Assessment & Plan: -RA at baseline - No exacerbation -CXR pending -RT to follow -Nebs/INH (13) High cholesterol Current Visit: No Status: Chronic Assessment & Plan: -continue statin Code(s): E78.00 - PURE HYPERCHOLESTEROLEMIA, UNSPECIFIED (14) IBS (irritable bowel syndrome) Current Visit: Yes Status: Acute Assessment & Plan: Stable; continue supportive regimen VTE: SCD PPI: protonix Dispo: 1-3 days Code status: Full code Plan of care time spent greater than 40 mins Telemedicine Encounter - Telemedicine Encounter Telemedicine Encounter: "The entirety of this encounter was performed via Telemedicine" This visit was performed using real-time audio and video connection between my location and thepatients locationwith the assistance of a surrogateat the patients location. Written or verbal consent was obtained from the patient/guardian to perform this visit usingsynchronoustelemedicine technology. Any patient questions regarding the telemedicine interaction were answered.
[2025-09-17] MEDS ORDERED: PROVENTIL 2.5 MG/3 ML NEB IH PRN ×2 (13:45→13:52)
[2025-09-17] MEDS ORDERED: DUONEB 0.5-3 MG/3 ml Neb IH PRN (13:46)
[2025-09-17] MEDS ORDERED: Zofran 4 MG/2 ML VIAL IV PRN (13:46)
[2025-09-17] MEDS ORDERED: HUMALOG SQ PRN (13:46)
[2025-09-17] MEDS ORDERED: Compazine 10 MG/2 ML IM PRN (13:46)
[2025-09-17] MEDS ORDERED: VENTOLIN COMMON CANISTER IH PRN (13:52)
[2025-09-17] MEDS ORDERED: NON-FORMULARY ITEM (Sumatriptan Succinate [Imitrex 50 Mg] 50 MG Tablet) PO PRN (13:52)
[2025-09-17] MEDS: NEURONTIN PO SCH (14:28)
[2025-09-17] MEDS: Zanaflex 4 MG PO SCH (14:39)
[2025-09-17] MEDS: BENADRYL 50 MG/ML IV PRN (14:39)
[2025-09-17] MEDS ORDERED: MEDICATION INTERVENTION MC SCH (14:45)
--- NOTE | 2025-09-17 16:47 | XRAY ---
Indication: Syncope. Seizure. Normal CT head. Normal CTA neck. Normal CTA head. Sagittal, coronal, and axial MRI brain performed using pre and post T1, T2, FLAIR, diffusion, and ADC sequences as ordered. 20 cc Dotarem contrast used. Comparison: None Age-appropriate global atrophy with a few petechial periventricular degenerative microischemia signal. No acute intracranial hemorrhage, abnormal extra-axial fluid collection, or mass effect. Diffusion images negative for restricted signal. Following gadolinium, there is no abnormal intra or extra-axial enhancement. Negative for mesial temporal sclerosis. 4th ventricle is midline without hydrocephalus. 7/8 cranial nerve complex bilaterally symmetric. Normal flow void signal within the major intracerebral circulation. Normal appearing craniocervical junction and sella turcica. Paranasal sinuses are clear. Impression: Atrophy and minimal degenerative microischemia within normal limits. Remaining MRI brain with contrast exam is negative.
--- NOTE | 2025-09-17 17:03 | XRAY ---
Indication: Lactic acidosis. Comparison: September 29, 2024 Portable chest unchanged again demonstrating normal heart and lungs. Bony thorax intact again with osteopenia, mild degenerative changes, and cervical fusion hardware. No new/acute findings.
[2025-09-17] MEDS: HUMALOG SQ SCH (17:29)
[2025-09-17] MEDS: TORAdol 30 mg Injection IV PRN (17:30)
[2025-09-17] MEDS: REQUIP 2MG TAB PO SCH (17:34)
[2025-09-17] MEDS: VENTOLIN COMMON CANISTER IH PRN (18:48)
[2025-09-17] MEDS: HOLD METFORMIN PRODUCTS FOR 48 HOURS MC SCH (18:48)
[2025-09-17 18:58] LABS: Iron 76 ug/dL (37-170); TIBC 356 ug/dL (265-462)
[2025-09-17] MEDS ORDERED: Advair Hfa 230/21 Mcg COMMON CANISTER IH SCH (19:00)
[2025-09-17 20:33] LABS: Ferritin 23.9 ng/mL (11.1-264)
[2025-09-17] MEDS ORDERED: WIXELA 500-50 INHUB IH SCH (22:00)
[2025-09-17] MEDS: ZOCOR 20MG PO SCH (22:06)
[2025-09-17] MEDS: Coreg PO SCH (22:06)
[2025-09-17] MEDS: Zestril 5 MG PO SCH (22:06)
[2025-09-17] MEDS: ANTIVERT 25 MG PO SCH (22:06)
[2025-09-17] MEDS: Protonix 40MG Tablet PO SCH (22:06)
[2025-09-17] MEDS: TYLENOL 325 MG PO PRN (22:35)
[2025-09-18] MEDS: PATIENT OWN MEDICATION IH SCH (01:17)
[2025-09-18 05:05] LABS: BASOPHIL % 0.3 % (0.1-1.2); Basophil (Absolute #) 0.01 x10^3/uL (0.01-0.08); Eosinophil (Absolute #) 0.08 x10^3/uL (0.04-0.36); Hematocrit 27.7 % (34.1-44.9); Hemoglobin 8.9 g/dL (11.2-15.7); IMMATURE GRAN # 0.02 x10^3u/L (0.001-0.031); IMMATURE GRAN % 0.5 % (0.001-0.429); Lymphocyte (Absolute #) 1.15 x10^3/uL (1.18-3.74); Mean Corpuscular Hemoglobin 28.4 pg (25.6-32.2); Mean Corpuscular Hgb Concent. 32.1 g/dL (32.2-35.5); Monocyte (Absolute #) 0.35 x10^3/uL (0.24-0.86); NUCLEATED RBC # 0.00 x10^3u/L (0.00-0.012); NUCLEATED RBC % 0.0 % (0.00-0.2); Platelet Count 134 x10^3/uL (182-369); Red Blood Count 3.13 x10^6/uL (3.93-5.22); White Blood Count 3.9 x10^3/uL (3.98-10.04)
--- NOTE | 2025-09-18 05:11 | PCM.NOTE ---
Date and Time: 09/18/25 0508 Subjective Assessment: is a 60 year old female with a pmhx of IBS, seizures (no home meds), HTN, migraines, HLD, DMII, anxiety/depressin, COPD, and liver disease who presented to ED 09/17/25 after experiencing an episode consistent with prior seizure-like events. She described the onset earlier this morning while seated on the couch; she felt spacey, then lost awareness and awoke feeling foggy, weak, and nauseated. Event was unwitnessed. She noted an aura preceding the event, characterized by disturbance in her left peripheral vision. Following the episode, she experienced difficulty finding words and mild right-sided weakness, though she reports returning to baseline by the time of evaluation. She endorsed intermittent unsteady gait for the past month. She follows with Dr. Rendon (Neurology, [facility]) and recently underwent an EEGreported as negativeand was scheduled for cervical MRI and X-ray. Neurology previously suspected her events to be stress-induced, and she is not maintained on antiepileptic therapy. In the ED, initial vitals were stable; hypertension (167/106 ) was noted but resolved spontaneously. EKG demonstrated normal sinus rhythm (rate 75 bpm, normal axis and intervals). CT head and CTA head/neck showed no acute findings. Laboratory evaluation revealed normocytic anemia (Hgb 9.7, near baseline 9.910.2), mild hyponatremia (Na 132), and mild lactic acidosis (lactate 2.3 - 2.2 on repeat). Mag level was low at 1.3 and replenished in ED. Troponin was within normal limits. Urinalysis and urine drug screen were unremarkable. Neurology was consulted and deemed her symptoms non-disabling; given low suspicion for acute ischemic stroke, no thrombolytic therapy (TnK) was administered. Observation planned with MRI w/wo per neurology recommendations. Patient received nitro, compazine, and mag sulfate in ED. MRI negative for acute findings. Objective Data Vital Signs: Vital Signs - 24 hr Temp Pulse Resp BP BP Pulse Ox 09/18/25 03:00 96.6 F 75 16 108/63 94 L 09/18/25 01:18 72 18 97 09/17/25 23:29 97.9 F 77 18 125/57 96 09/17/25 20:00 97.9 F 84 18 123/70 96 09/17/25 18:51 71 18 97 09/17/25 15:31 98.7 F 76 16 114/59 98 09/17/25 13:51 81 16 96 09/17/25 13:19 97.6 F 78 16 154/76 96 09/17/25 12:48 97.6 F 78 16 154/76 96 09/17/25 12:17 99 09/17/25 12:00 23 167/106 94 L 09/17/25 11:30 18 141/98 98 09/17/25 11:16 72 25 H 136/109 97 09/17/25 10:19 153/86 09/17/25 09:39 98 09/17/25 09:34 96.5 F 76 16 132/77 132/77 98 Pain Assessment - Last Documented Pain Intensity 8 Pain Scale Used FLACC Intake and Output: Intake & Output 09/15/25 09/16/25 09/17/25 09/18/25 11:59 11:59 11:59 11:59 Intake Total 1449 Output Total 1200 Balance 249 Weight 120 kg 116.8 kg Lab Results: Lab Results-Last 24 Hours 09/17/25 09/17/25 09/17/25 Range/Units 10:10 10:10 10:10 WBC 4.7 (3.98-10.04) x10^3/uL RBC 3.36 L (3.93-5.22) x10^6/uL Hgb 9.7 L (11.2-15.7) g/dL Hct 30.0 L (34.1-44.9) % MCV 89.3 (79.4-94.8) fL MCH 28.9 (25.6-32.2) pg MCHC 32.3 (32.2-35.5) g/dL RDW 13.0 (11.7-14.4) % Plt Count 141 L (182-369) x10^3/uL MPV 10.6 (9.4-12.3) fL Gran % 58.3 (34.0-71.1) % Immature Gran % (Auto) 0.4 (0.001-0.429) % Nucleat RBC Rel Count 0.0 (0.00-0.2) % Eos # (Auto) 0.10 (0.04-0.36) x10^3/uL Immature Gran # (Auto) 0.02 (0.001-0.031) x10^3u/L Absolute Lymphs (auto) 1.47 (1.18-3.74) x10^3/uL Absolute Monos (auto) 0.36 (0.24-0.86) x10^3/uL Absolute Nucleated RBC 0.00 (0.00-0.012) x10^3u/L Lymphocytes % 31.2 (19.3-51.7) % Monocytes % 7.6 (4.7-12.5) % Eosinophils % 2.1 (0.7-5.8) % Basophils % 0.4 (0.1-1.2) % Absolute Granulocytes 2.74 (1.56-6.13) x10^3/uL Basophils # 0.02 (0.01-0.08) x10^3/uL Sodium 132 L (135-145) mmol/L Potassium 4.4 (3.5-5.1) mmol/L Chloride 99 (98-107) mmol/L Carbon Dioxide 25 (22-30) mmol/L Anion Gap 12.4 (5-15) MEQ/L BUN 9 (7-17) mg/dL Creatinine 0.84 (0.52-1.04) mg/dL Estimated GFR 79.5 ML/MIN Glucose 113 H (74-106) mg/dL POC Glucometer (74 to 106) mg/dL Hemoglobin A1c (4.5-6.0) % Lactic Acid (0.4-2.0) Calcium 8.9 (8.4-10.2) mg/dL Magnesium 1.3 L (1.6-2.3) mg/dL Iron (37-170) ug/dL TIBC (265-462) ug/dL Iron Saturation (20-39) % Ferritin (11.1-264) ng/mL Total Bilirubin 0.60 (0.2-1.3) mg/dL AST 39 H (14-36) U/L ALT 26 (0-35) U/L Alkaline Phosphatase 123 (38-126) U/L Troponin I < 0.012 (0.000-0.033) ng/mL Serum Total Protein 6.8 (6.3-8.2) g/dL Albumin 4.0 (3.5-5.0) g/dL Vitamin B12 (239-931) pg/mL Folic Acid (2.76 - >20) ng/mL TSH 3rd Generation (0.470-4.680) mIU/L Urine Color (Yellow) Urine Appearance (Clear) Urine pH (4.6-8.0) Ur Specific Black (1.005-1.030) Urine Protein (Negative) Urine Glucose (UA) (Negative) mg/dL Urine Ketones (Negative) Urine Blood (Negative) Urine Nitrite (Negative) Urine Bilirubin (Negative) Urine Urobilinogen (0.2) mg/dL Ur Leukocyte Esterase (Negative) U Hyaline Cast (Auto) (0-2) /LPF Urine Microscopic RBC (0-5) /HPF Urine Microscopic WBC (0-5) /HPF Ur Epithelial Cells (None Seen) /HPF Urine Bacteria (None Seen) /HPF Urine Culture Reflexed (NO) Urine Opiates Level (NEGATIVE) Ur Methadone (NEGATIVE) Urine Barbiturates (NEGATIVE) Ur Phencyclidine (PCP) (NEGATIVE) Urine Amphetamine (NEGATIVE) U Benzodiazepine Level (NEGATIVE) Urine Cocaine (NEGATIVE) Urine Marijuana (THC) (NEGATIVE) Ethyl Alcohol < 10 (0-10) mg/dL 09/17/25 09/17/25 09/17/25 Range/Units 10:13 10:39 10:39 WBC (3.98-10.04) x10^3/uL RBC (3.93-5.22) x10^6/uL Hgb (11.2-15.7) g/dL Hct (34.1-44.9) % MCV (79.4-94.8) fL MCH (25.6-32.2) pg MCHC (32.2-35.5) g/dL RDW (11.7-14.4) % Plt Count (182-369) x10^3/uL MPV (9.4-12.3) fL Gran % (34.0-71.1) % Immature Gran % (Auto) (0.001-0.429) % Nucleat RBC Rel Count (0.00-0.2) % Eos # (Auto) (0.04-0.36) x10^3/uL Immature Gran # (Auto) (0.001-0.031) x10^3u/L Absolute Lymphs (auto) (1.18-3.74) x10^3/uL Absolute Monos (auto) (0.24-0.86) x10^3/uL Absolute Nucleated RBC (0.00-0.012) x10^3u/L Lymphocytes % (19.3-51.7) % Monocytes % (4.7-12.5) % Eosinophils % (0.7-5.8) % Basophils % (0.1-1.2) % Absolute Granulocytes (1.56-6.13) x10^3/uL Basophils # (0.01-0.08) x10^3/uL Sodium (135-145) mmol/L Potassium (3.5-5.1) mmol/L Chloride (98-107) mmol/L Carbon Dioxide (22-30) mmol/L Anion Gap (5-15) MEQ/L BUN (7-17) mg/dL Creatinine (0.52-1.04) mg/dL Estimated GFR ML/MIN Glucose (74-106) mg/dL POC Glucometer (74 to 106) mg/dL Hemoglobin A1c (4.5-6.0) % Lactic Acid 2.3 H (0.4-2.0) Calcium (8.4-10.2) mg/dL Magnesium (1.6-2.3) mg/dL Iron (37-170) ug/dL TIBC (265-462) ug/dL Iron Saturation (20-39) % Ferritin (11.1-264) ng/mL Total Bilirubin (0.2-1.3) mg/dL AST (14-36) U/L ALT (0-35) U/L Alkaline Phosphatase (38-126) U/L Troponin I (0.000-0.033) ng/mL Serum Total Protein (6.3-8.2) g/dL Albumin (3.5-5.0) g/dL Vitamin B12 (239-931) pg/mL Folic Acid (2.76 - >20) ng/mL TSH 3rd Generation (0.470-4.680) mIU/L Urine Color Yellow (Yellow) Urine Appearance Clear (Clear) Urine pH 7.0 (4.6-8.0) Ur Specific Black <=1.005 (1.005-1.030) Urine Protein Negative (Negative) Urine Glucose (UA) Negative (Negative) mg/dL Urine Ketones Negative (Negative) Urine Blood Negative (Negative) Urine Nitrite Negative (Negative) Urine Bilirubin Negative (Negative) Urine Urobilinogen 0.2 (0.2) mg/dL Ur Leukocyte Esterase Trace A (Negative) U Hyaline Cast (Auto) NONE SEEN (0-2) /LPF Urine Microscopic RBC 0-2 (0-5) /HPF Urine Microscopic WBC 0-2 (0-5) /HPF Ur Epithelial Cells None Seen (None Seen) /HPF Urine Bacteria None Seen (None Seen) /HPF Urine Culture Reflexed NO (NO) Urine Opiates Level NEGATIVE (NEGATIVE) Ur Methadone NEGATIVE (NEGATIVE) Urine Barbiturates NEGATIVE (NEGATIVE) Ur Phencyclidine (PCP) NEGATIVE (NEGATIVE) Urine Amphetamine NEGATIVE (NEGATIVE) U Benzodiazepine Level NEGATIVE (NEGATIVE) Urine Cocaine NEGATIVE (NEGATIVE) Urine Marijuana (THC) NEGATIVE (NEGATIVE) Ethyl Alcohol (0-10) mg/dL 09/17/25 09/17/25 09/17/25 Range/Units 12:19 12:30 12:36 WBC (3.98-10.04) x10^3/uL RBC (3.93-5.22) x10^6/uL Hgb (11.2-15.7) g/dL Hct (34.1-44.9) % MCV (79.4-94.8) fL MCH (25.6-32.2) pg MCHC (32.2-35.5) g/dL RDW (11.7-14.4) % Plt Count (182-369) x10^3/uL MPV (9.4-12.3) fL Gran % (34.0-71.1) % Immature Gran % (Auto) (0.001-0.429) % Nucleat RBC Rel Count (0.00-0.2) % Eos # (Auto) (0.04-0.36) x10^3/uL Immature Gran # (Auto) (0.001-0.031) x10^3u/L Absolute Lymphs (auto) (1.18-3.74) x10^3/uL Absolute Monos (auto) (0.24-0.86) x10^3/uL Absolute Nucleated RBC (0.00-0.012) x10^3u/L Lymphocytes % (19.3-51.7) % Monocytes % (4.7-12.5) % Eosinophils % (0.7-5.8) % Basophils % (0.1-1.2) % Absolute Granulocytes (1.56-6.13) x10^3/uL Basophils # (0.01-0.08) x10^3/uL Sodium (135-145) mmol/L Potassium (3.5-5.1) mmol/L Chloride (98-107) mmol/L Carbon Dioxide (22-30) mmol/L Anion Gap (5-15) MEQ/L BUN (7-17) mg/dL Creatinine (0.52-1.04) mg/dL Estimated GFR ML/MIN Glucose (74-106) mg/dL POC Glucometer (74 to 106) mg/dL Hemoglobin A1c (4.5-6.0) % Lactic Acid 2.2 H (0.4-2.0) Calcium (8.4-10.2) mg/dL Magnesium (1.6-2.3) mg/dL Iron (37-170) ug/dL TIBC (265-462) ug/dL Iron Saturation (20-39) % Ferritin (11.1-264) ng/mL Total Bilirubin (0.2-1.3) mg/dL AST (14-36) U/L ALT (0-35) U/L Alkaline Phosphatase (38-126) U/L Troponin I < 0.012 (0.000-0.033) ng/mL Serum Total Protein (6.3-8.2) g/dL Albumin (3.5-5.0) g/dL Vitamin B12 (239-931) pg/mL Folic Acid (2.76 - >20) ng/mL TSH 3rd Generation 0.905 (0.470-4.680) mIU/L Urine Color (Yellow) Urine Appearance (Clear) Urine pH (4.6-8.0) Ur Specific Black (1.005-1.030) Urine Protein (Negative) Urine Glucose (UA) (Negative) mg/dL Urine Ketones (Negative) Urine Blood (Negative) Urine Nitrite (Negative) Urine Bilirubin (Negative) Urine Urobilinogen (0.2) mg/dL Ur Leukocyte Esterase (Negative) U Hyaline Cast (Auto) (0-2) /LPF Urine Microscopic RBC (0-5) /HPF Urine Microscopic WBC (0-5) /HPF Ur Epithelial Cells (None Seen) /HPF Urine Bacteria (None Seen) /HPF Urine Culture Reflexed (NO) Urine Opiates Level (NEGATIVE) Ur Methadone (NEGATIVE) Urine Barbiturates (NEGATIVE) Ur Phencyclidine (PCP) (NEGATIVE) Urine Amphetamine (NEGATIVE) U Benzodiazepine Level (NEGATIVE) Urine Cocaine (NEGATIVE) Urine Marijuana (THC) (NEGATIVE) Ethyl Alcohol (0-10) mg/dL 09/17/25 09/17/25 09/17/25 Range/Units 12:36 16:34 17:40 WBC (3.98-10.04) x10^3/uL RBC (3.93-5.22) x10^6/uL Hgb (11.2-15.7) g/dL Hct (34.1-44.9) % MCV (79.4-94.8) fL MCH (25.6-32.2) pg MCHC (32.2-35.5) g/dL RDW (11.7-14.4) % Plt Count (182-369) x10^3/uL MPV (9.4-12.3) fL Gran % (34.0-71.1) % Immature Gran % (Auto) (0.001-0.429) % Nucleat RBC Rel Count (0.00-0.2) % Eos # (Auto) (0.04-0.36) x10^3/uL Immature Gran # (Auto) (0.001-0.031) x10^3u/L Absolute Lymphs (auto) (1.18-3.74) x10^3/uL Absolute Monos (auto) (0.24-0.86) x10^3/uL Absolute Nucleated RBC (0.00-0.012) x10^3u/L Lymphocytes % (19.3-51.7) % Monocytes % (4.7-12.5) % Eosinophils % (0.7-5.8) % Basophils % (0.1-1.2) % Absolute Granulocytes (1.56-6.13) x10^3/uL Basophils # (0.01-0.08) x10^3/uL Sodium (135-145) mmol/L Potassium (3.5-5.1) mmol/L Chloride (98-107) mmol/L Carbon Dioxide (22-30) mmol/L Anion Gap (5-15) MEQ/L BUN (7-17) mg/dL Creatinine (0.52-1.04) mg/dL Estimated GFR ML/MIN Glucose (74-106) mg/dL POC Glucometer 129 H (74 to 106) mg/dL Hemoglobin A1c 5.38 (4.5-6.0) % Lactic Acid (0.4-2.0) Calcium (8.4-10.2) mg/dL Magnesium (1.6-2.3) mg/dL Iron (37-170) ug/dL TIBC (265-462) ug/dL Iron Saturation (20-39) % Ferritin (11.1-264) ng/mL Total Bilirubin (0.2-1.3) mg/dL AST (14-36) U/L ALT (0-35) U/L Alkaline Phosphatase (38-126) U/L Troponin I < 0.012 (0.000-0.033) ng/mL Serum Total Protein (6.3-8.2) g/dL Albumin (3.5-5.0) g/dL Vitamin B12 (239-931) pg/mL Folic Acid (2.76 - >20) ng/mL TSH 3rd Generation (0.470-4.680) mIU/L Urine Color (Yellow) Urine Appearance (Clear) Urine pH (4.6-8.0) Ur Specific Black (1.005-1.030) Urine Protein (Negative) Urine Glucose (UA) (Negative) mg/dL Urine Ketones (Negative) Urine Blood (Negative) Urine Nitrite (Negative) Urine Bilirubin (Negative) Urine Urobilinogen (0.2) mg/dL Ur Leukocyte Esterase (Negative) U Hyaline Cast (Auto) (0-2) /LPF Urine Microscopic RBC (0-5) /HPF Urine Microscopic WBC (0-5) /HPF Ur Epithelial Cells (None Seen) /HPF Urine Bacteria (None Seen) /HPF Urine Culture Reflexed (NO) Urine Opiates Level (NEGATIVE) Ur Methadone (NEGATIVE) Urine Barbiturates (NEGATIVE) Ur Phencyclidine (PCP) (NEGATIVE) Urine Amphetamine (NEGATIVE) U Benzodiazepine Level (NEGATIVE) Urine Cocaine (NEGATIVE) Urine Marijuana (THC) (NEGATIVE) Ethyl Alcohol (0-10) mg/dL 09/17/25 09/17/25 09/17/25 Range/Units 17:40 17:40 20:40 WBC (3.98-10.04) x10^3/uL RBC (3.93-5.22) x10^6/uL Hgb (11.2-15.7) g/dL Hct (34.1-44.9) % MCV (79.4-94.8) fL MCH (25.6-32.2) pg MCHC (32.2-35.5) g/dL RDW (11.7-14.4) % Plt Count (182-369) x10^3/uL MPV (9.4-12.3) fL Gran % (34.0-71.1) % Immature Gran % (Auto) (0.001-0.429) % Nucleat RBC Rel Count (0.00-0.2) % Eos # (Auto) (0.04-0.36) x10^3/uL Immature Gran # (Auto) (0.001-0.031) x10^3u/L Absolute Lymphs (auto) (1.18-3.74) x10^3/uL Absolute Monos (auto) (0.24-0.86) x10^3/uL Absolute Nucleated RBC (0.00-0.012) x10^3u/L Lymphocytes % (19.3-51.7) % Monocytes % (4.7-12.5) % Eosinophils % (0.7-5.8) % Basophils % (0.1-1.2) % Absolute Granulocytes (1.56-6.13) x10^3/uL Basophils # (0.01-0.08) x10^3/uL Sodium (135-145) mmol/L Potassium (3.5-5.1) mmol/L Chloride (98-107) mmol/L Carbon Dioxide (22-30) mmol/L Anion Gap (5-15) MEQ/L BUN (7-17) mg/dL Creatinine (0.52-1.04) mg/dL Estimated GFR ML/MIN Glucose (74-106) mg/dL POC Glucometer (74 to 106) mg/dL Hemoglobin A1c (4.5-6.0) % Lactic Acid 1.9 (0.4-2.0) Calcium (8.4-10.2) mg/dL Magnesium (1.6-2.3) mg/dL Iron 76 (37-170) ug/dL TIBC 356 (265-462) ug/dL Iron Saturation 21 (20-39) % Ferritin 23.9 (11.1-264) ng/mL Total Bilirubin (0.2-1.3) mg/dL AST (14-36) U/L ALT (0-35) U/L Alkaline Phosphatase (38-126) U/L Troponin I (0.000-0.033) ng/mL Serum Total Protein (6.3-8.2) g/dL Albumin (3.5-5.0) g/dL Vitamin B12 205 L (239-931) pg/mL Folic Acid 9.22 (2.76 - >20) ng/mL TSH 3rd Generation (0.470-4.680) mIU/L Urine Color (Yellow) Urine Appearance (Clear) Urine pH (4.6-8.0) Ur Specific Black (1.005-1.030) Urine Protein (Negative) Urine Glucose (UA) (Negative) mg/dL Urine Ketones (Negative) Urine Blood (Negative) Urine Nitrite (Negative) Urine Bilirubin (Negative) Urine Urobilinogen (0.2) mg/dL Ur Leukocyte Esterase (Negative) U Hyaline Cast (Auto) (0-2) /LPF Urine Microscopic RBC (0-5) /HPF Urine Microscopic WBC (0-5) /HPF Ur Epithelial Cells (None Seen) /HPF Urine Bacteria (None Seen) /HPF Urine Culture Reflexed (NO) Urine Opiates Level (NEGATIVE) Ur Methadone (NEGATIVE) Urine Barbiturates (NEGATIVE) Ur Phencyclidine (PCP) (NEGATIVE) Urine Amphetamine (NEGATIVE) U Benzodiazepine Level (NEGATIVE) Urine Cocaine (NEGATIVE) Urine Marijuana (THC) (NEGATIVE) Ethyl Alcohol (0-10) mg/dL 09/17/25 Range/Units 20:55 WBC (3.98-10.04) x10^3/uL RBC (3.93-5.22) x10^6/uL Hgb (11.2-15.7) g/dL Hct (34.1-44.9) % MCV (79.4-94.8) fL MCH (25.6-32.2) pg MCHC (32.2-35.5) g/dL RDW (11.7-14.4) % Plt Count (182-369) x10^3/uL MPV (9.4-12.3) fL Gran % (34.0-71.1) % Immature Gran % (Auto) (0.001-0.429) % Nucleat RBC Rel Count (0.00-0.2) % Eos # (Auto) (0.04-0.36) x10^3/uL Immature Gran # (Auto) (0.001-0.031) x10^3u/L Absolute Lymphs (auto) (1.18-3.74) x10^3/uL Absolute Monos (auto) (0.24-0.86) x10^3/uL Absolute Nucleated RBC (0.00-0.012) x10^3u/L Lymphocytes % (19.3-51.7) % Monocytes % (4.7-12.5) % Eosinophils % (0.7-5.8) % Basophils % (0.1-1.2) % Absolute Granulocytes (1.56-6.13) x10^3/uL Basophils # (0.01-0.08) x10^3/uL Sodium (135-145) mmol/L Potassium (3.5-5.1) mmol/L Chloride (98-107) mmol/L Carbon Dioxide (22-30) mmol/L Anion Gap (5-15) MEQ/L BUN (7-17) mg/dL Creatinine (0.52-1.04) mg/dL Estimated GFR ML/MIN Glucose (74-106) mg/dL POC Glucometer 134 H (74 to 106) mg/dL Hemoglobin A1c (4.5-6.0) % Lactic Acid (0.4-2.0) Calcium (8.4-10.2) mg/dL Magnesium (1.6-2.3) mg/dL Iron (37-170) ug/dL TIBC (265-462) ug/dL Iron Saturation (20-39) % Ferritin (11.1-264) ng/mL Total Bilirubin (0.2-1.3) mg/dL AST (14-36) U/L ALT (0-35) U/L Alkaline Phosphatase (38-126) U/L Troponin I (0.000-0.033) ng/mL Serum Total Protein (6.3-8.2) g/dL Albumin (3.5-5.0) g/dL Vitamin B12 (239-931) pg/mL Folic Acid (2.76 - >20) ng/mL TSH 3rd Generation (0.470-4.680) mIU/L Urine Color (Yellow) Urine Appearance (Clear) Urine pH (4.6-8.0) Ur Specific Black (1.005-1.030) Urine Protein (Negative) Urine Glucose (UA) (Negative) mg/dL Urine Ketones (Negative) Urine Blood (Negative) Urine Nitrite (Negative) Urine Bilirubin (Negative) Urine Urobilinogen (0.2) mg/dL Ur Leukocyte Esterase (Negative) U Hyaline Cast (Auto) (0-2) /LPF Urine Microscopic RBC (0-5) /HPF Urine Microscopic WBC (0-5) /HPF Ur Epithelial Cells (None Seen) /HPF Urine Bacteria (None Seen) /HPF Urine Culture Reflexed (NO) Urine Opiates Level (NEGATIVE) Ur Methadone (NEGATIVE) Urine Barbiturates (NEGATIVE) Ur Phencyclidine (PCP) (NEGATIVE) Urine Amphetamine (NEGATIVE) U Benzodiazepine Level (NEGATIVE) Urine Cocaine (NEGATIVE) Urine Marijuana (THC) (NEGATIVE) Ethyl Alcohol (0-10) mg/dL Radiology Exams: Radiology Procedures Category Date Time Status CHEST 1 VIEW (PORTABLE) Stat Exams 09/17/25 13:[address] ANGIOGRAPHY NECK [CT] Stat Exams 09/17/25 10:04 Completed CTA HEAD W AND/OR WO CONTRAST [CT] Stat Exams 09/17/25 10:03 Completed ECHO W/2D AND DOPPLER [US] Routine Exams 09/17/25 13:48 Taken MRI BRAIN W & W/O CONTRAST [MRI] Stat Exams 09/17/25 13:55 Completed Medications: Medications Generic Name Dose Route Start Last Admin Trade Name Freq PRN Reason Stop Dose Admin Acetaminophen 650 mg 09/17/25 13:46 09/17/25 22:35 Acetaminophen 325 Mg Tablet PO 10/17/25 13:45 650 mg Q4H PRN PRN Administration PAIN, FEVER, HEADACHE Albuterol Sulfate 2 puff 09/17/25 13:44 09/17/25 18:48 Albuterol Common Canister Inhaler IH 10/17/25 13:43 2 puff Q4H PRN PRN Administration SHORTNESS OF BREATH/WHEEZING Albuterol Sulfate 2.5 mg 09/17/25 13:45 Albuterol Sulfate 2.5 Mg/3 Ml Neb IH 10/17/25 13:44 Q4H PRN PRN SHORTNESS OF BREATH/WHEEZING Aspirin 81 mg 09/18/25 10:00 Aspirin 81 Mg Tablet.Ec PO 10/18/25 09:59 DAILY ARSH Carvedilol 18.75 mg 09/17/25 22:00 09/17/25 22:06 Carvedilol 6.25 Mg Tablet PO 10/17/25 21:59 18.75 mg BID ARSH Administration Diphenhydramine HCl 12.5 mg 09/17/25 13:46 09/17/25 14:39 Diphenhydramine Hcl 50 Mg/Ml Vial IV 10/17/25 13:45 12.5 mg Q6H PRN PRN Administration ITCHING Gabapentin 300 mg 09/17/25 15:00 09/17/25 22:06 Gabapentin 300 Mg Capsule PO 10/17/25 14:59 300 mg TID ARSH Administration Sodium Chloride 1,000 mls @ 50 mls/hr 09/17/25 14:00 09/17/25 17:24 Sodium Chloride 0.9% 1000 Ml IV 10/17/25 13:59 50 mls/hr .Q20H ARSH Infusion Insulin Glargine 50 unit 09/18/25 10:00 Insulin Glargine 1 Unit SQ 10/18/25 09:59 DAILY ARSH Insulin Human Lispro 26 unit 09/17/25 17:00 09/17/25 17:29 Insulin Lispro 1 Unit SQ 10/17/25 16:59 26 unit BIDWM ARSH Administration Insulin Human Lispro 24 unit 09/18/25 12:00 Insulin Lispro 1 Unit SQ 10/18/25 11:59 LUNCH ARSH Ketorolac Tromethamine 15 mg 09/17/25 13:46 09/17/25 17:30 Ketorolac Tromethamine 30 Mg/Ml Inj IV 15 mg Q6H PRN PRN Administration PAIN Lisinopril 5 mg 09/17/25 22:00 09/17/25 22:06 Lisinopril 5 Mg Tablet PO 10/17/25 21:59 5 mg HS ARSH Administration Meclizine HCl 25 mg 09/17/25 22:00 09/17/25 22:06 Meclizine Hcl 25 Mg Tablet PO 10/17/25 21:59 25 mg BID ARSH Administration Miscellaneous Information 1 each 09/17/25 14:45 Medication Intervention 1 Each Each 10/17/25 14:44 .RN TO CHECK ARSH Modafinil 200 mg 09/18/25 10:00 Modafinil 100 Mg Tab PO 10/18/25 09:59 DAILY ARSH Non-Formulary Medication 1 each 09/17/25 14:45 09/17/25 18:48 Hold Metformin Products For 48hrs 09/19/25 10:45 Not Given Q48H ARSH Ondansetron HCl 4 mg 09/17/25 13:46 Ondansetron Hcl 4 Mg/2 Ml Vial IV 10/17/25 13:45 Q6H PRN PRN NAUSEA/VOMITING Pantoprazole Sodium 40 mg 09/17/25 22:00 09/17/25 22:06 Protonix (Pantoprazole) 40 Mg Tablet PO 10/17/25 21:59 40 mg BID ARSH Administration Wixela 500/50 1 each 09/17/25 19:00 09/18/25 01:17 Inhaler IH 10/17/25 18:59 1 each BIDRT ARSH Administration Prochlorperazine Edisylate 10 mg 09/17/25 13:46 Prochlorperazine Edisylate 10 Mg/2 Ml Vial IM 10/17/25 13:45 Q6H PRN PRN NAUSEA/VOMITING Ropinirole HCl 2 mg 09/17/25 17:00 09/17/25 22:35 Ropinirole Hcl 2 Mg Tablet PO 10/17/25 16:59 2 mg 1700,2200 ARSH Administration Simvastatin 20 mg 09/17/25 22:00 09/17/25 22:06 Simvastatin 20 Mg Tablet PO 10/17/25 21:59 20 mg HS ARSH Administration Tizanidine HCl 4 mg 09/17/25 15:00 09/17/25 22:06 Tizanidine Hcl 4 Mg Tablet PO 10/17/25 14:59 4 mg TID ARSH Administration Discontinued Medications Generic Name Dose Route Start Last Admin Trade Name Freq PRN Reason Stop Dose Admin Albuterol/Ipratropium 3 ml 09/17/25 13:46 Ipratropium/Albuterol Sulfate 3 Ml Ampul.Neb IH 10/17/25 13:45 Q6H PRN PRN SHORTNESS OF BREATH Magnesium Sulfate/Dextrose 100 mls @ 100 mls/hr 09/17/25 12:15 09/17/25 13:16 Magnesium 1 Gm / 100 Ml D5w IV 09/17/25 14:14 100 mls/hr Q1H ARSH Administration Insulin Human Lispro 0 unit 09/17/25 13:46 Insulin Lispro 1 Unit SQ 10/17/25 13:45 UD PRN HYPERGLYCEMIA Nitroglycerin 0.4 mg 09/17/25 07:45 09/17/25 11:21 Nitroglycerin 0.4 Mg (Ed) 0.4 Mg Tab.Subl SL 09/17/25 07:46 Not Given STAT ONE Prochlorperazine Edisylate 10 mg 09/17/25 12:14 09/17/25 12:19 Prochlorperazine Edisylate 10 Mg/2 Ml Vial IV 09/17/25 12:15 10 mg STAT ONE Administration Prochlorperazine Edisylate Confirm 09/17/25 12:18 Prochlorperazine Edisylate 10 Mg/2 Ml Vial Administered 09/17/25 12:19 Dose 10 mg .ROUTE .STK-MED ONE Fluticasone/Salmeterol 2 puff 09/17/25 19:00 Fluticasone/Salmeterol 230/21 Common Canister IH 10/17/25 18:59 BIDRT [facility] Multi-Disciplinary Progress Notes: Multi-Disciplinary Progress Notes 09/18/25 01:51 Radiology Note by MORIS BROWN TRANSTHORACIC ECHOCARDIOGRAM 09/17/2025 1. Normal biventricular wall thickness, chamber size, and systolic function. 2. No obvious wall motion abnormalities. Estimated LVEF 55-60%. 3. Normal diastolic function profile. 4. Mild mitral sclerosis without stenosis. 5. Doppler: mild tricuspid regurgitation. 6. Normal PA systolic pressure (32 mmHg). 7. Mildly elevated right atrial pressure (8 mmHg). 8. No pericardial effusion. Moris Brown MD [facility] Initialized on 09/18/25 01:51 - END OF NOTE Assessment/Plan (1) Other symptoms and signs involving the nervous system Current Visit: Yes Status: Acute Assessment & Plan: -CT head and CTA neck/head negative for acute pathology. -Neurology consulted with recs for MRI brain with and without contrast; permissive hypertension (<220/110 mmHg) for 24 hours, then resume normotension goals; Continue aspirin 81 mg daily and home statin; Obtain LDL, A1c, CXR, and TTE if MRI confirms stroke -Migraine cocktail: Diphenhydramine 12.5 mg IV, Ketorolac 15 mg IV, Compazine 10 mg IV PRN headache. -No antiepileptic therapy initiated per prior negative EEG and history of stress-related nonepileptic events. -follows with Dr. Rnedon neurology [facility] -PT/OT/[employer] evaluations to assess function and safety. -Reconsult neurology following MRI for definitive recommendations. 09/18: -MRI negative -a1c 5.38 -TSH WNL Code(s): R29.818 - OTHER SYMPTOMS AND SIGNS INVOLVING THE NERVOUS SYSTEM (2) Hypomagnesemia Current Visit: Yes Status: Acute Assessment & Plan: -Mag level at 1.3- replenished in ED -recheck in a.m Code(s): E83.42 - HYPOMAGNESEMIA (3) Hyponatremia Current Visit: Yes Status: Acute Assessment & Plan: -mild at 132 -trend -Gentle hydration Code(s): E87.1 - HYPO-OSMOLALITY AND HYPONATREMIA (4) Lactic acidosis Current Visit: Yes Status: Acute Assessment & Plan: -Likely secondary to hypoperfusion during event. -Continue monitoring; no evidence of sepsis or tissue hypoxia -WBC reviewed and WNL, UA negative -will obtain CXR per neuro recs Code(s): E87.20 - ACIDOSIS, UNSPECIFIED (5) Normocytic anemia Current Visit: Yes Status: Acute Assessment & Plan: -Hgb 9.7 (baseline 10). -No acute bleeding or hemolysis. -Iron studies, occult stools -Monitor CBC; transfuse if Hgb <7 g/dL Code(s): D64.9 - ANEMIA, UNSPECIFIED (6) History of seizure Current Visit: Yes Status: Acute Assessment & Plan: -Follows with Dr. Rendon [facility] as OP- reports negative EEG- no home meds- states neurology felt events were stress induced Code(s): Z87.898 - PERSONAL HISTORY OF OTHER SPECIFIED CONDITIONS (7) HTN (hypertension) Current Visit: Yes Status: Acute Assessment & Plan: -BP improved without intervention. Continue home antihypertensive regimen after permissive window ends. Code(s): I10 - ESSENTIAL (PRIMARY) HYPERTENSION (8) Liver disease Current Visit: Yes Status: Acute Assessment & Plan: -Pt follows with Dr. Jeffrey -No current treatment -LFTs reviewed and mild elevation of ast at 39 Code(s): K76.9 - LIVER DISEASE, UNSPECIFIED (9) Anxiety and depression Current Visit: Yes Status: Acute Assessment & Plan: -continue home meds Code(s): F41.9 - ANXIETY DISORDER, UNSPECIFIED; F32.A - DEPRESSION, UNSPECIFIED (10) Migraine Current Visit: Yes Status: Acute Assessment & Plan: -see above Code(s): G43.909 - MIGRAINE, UNSP, NOT INTRACTABLE, WITHOUT STATUS MIGRAINOSUS (11) Type 2 diabetes mellitus Current Visit: No Status: Acute Qualifiers: Diabetes mellitus intermediate designer insulin use: with senior living use Diabetes mellitus complication status: with hyperglycemia Qualified Code(s): E11.65 - Type 2 diabetes mellitus with hyperglycemia; Z79.4 - terminal manager (current) use of insulin Assessment & Plan: -A1c -ADA diet -SSI (12) COPD (chronic obstructive pulmonary disease) Current Visit: No Status: Chronic Onset Date: ~02/24/18 Qualifiers: Emphysema type: unspecified Assessment & Plan: -RA at baseline - No exacerbation -CXR pending -RT to follow -Nebs/INH (13) High cholesterol Current Visit: No Status: Chronic Assessment & Plan: -continue statin Code(s): E78.00 - PURE HYPERCHOLESTEROLEMIA, UNSPECIFIED (14) IBS (irritable bowel syndrome) Current Visit: Yes Status: Acute Assessment & Plan: Stable; continue supportive regimen VTE: SCD PPI: protonix Dispo: 1-3 days Code status: Full code Plan of care time spent greater than 40 mins Code(s): R29.818 - OTHER SYMPTOMS AND SIGNS INVOLVING THE NERVOUS SYSTEM (2) Hypomagnesemia Current Visit: Yes Status: Acute Code(s): E83.42 - HYPOMAGNESEMIA (3) Hyponatremia Current Visit: Yes Status: Acute Code(s): E87.1 - HYPO-OSMOLALITY AND HYPONATREMIA (4) Lactic acidosis Current Visit: Yes Status: Acute Code(s): E87.20 - ACIDOSIS, UNSPECIFIED (5) Normocytic anemia Current Visit: Yes Status: Acute Code(s): D64.9 - ANEMIA, UNSPECIFIED (6) History of seizure Current Visit: Yes Status: Acute Code(s): Z87.898 - PERSONAL HISTORY OF OTHER SPECIFIED CONDITIONS (7) HTN (hypertension) Current Visit: Yes Status: Acute Code(s): I10 - ESSENTIAL (PRIMARY) HYPERTENSION (8) Liver disease Current Visit: Yes Status: Acute Code(s): K76.9 - LIVER DISEASE, UNSPECIFIED (9) Anxiety and depression Current Visit: Yes Status: Acute Code(s): F41.9 - ANXIETY DISORDER, UNSPECIFIED; F32.A - DEPRESSION, UNSPECIFIED (10) Migraine Current Visit: Yes Status: Acute Code(s): G43.909 - MIGRAINE, UNSP, NOT INTRACTABLE, WITHOUT STATUS MIGRAINOSUS (11) Type 2 diabetes mellitus Current Visit: No Status: Acute Qualifiers: Diabetes mellitus intermediate designer insulin use: with intermediate designer use Diabetes mellitus complication status: with hyperglycemia Qualified Code(s): E11.65 - Type 2 diabetes mellitus with hyperglycemia; Z79.4 - long-term (current) use of insulin (12) COPD (chronic obstructive pulmonary disease) Current Visit: No Status: Chronic Onset Date: ~02/24/18 Qualifiers: Emphysema type: unspecified (13) High cholesterol Current Visit: No Status: Chronic Code(s): E78.00 - PURE HYPERCHOLESTEROLEMIA, UNSPECIFIED (14) IBS (irritable bowel syndrome) Current Visit: Yes Status: Acute
[2025-09-18 05:36] LABS: Calcium 8.7 mg/dL (8.4-10.2); Carbon Dioxide 25.0 mmol/L (22-30); Cholesterol 152.0 mg/dL (50-200); Creatinine 1 1.02 mg/dL (0.52-1.04); EST GLOMERULAR FILTRATION RATE 63.0 ML/MIN; Glucose 130.0 mg/dL (74-106); LDL, DIRECT 70.0 mg/dL (30-100); Potassium 4.3 mmol/L (3.5-5.1); SGOT/AST 30.0 U/L (14-36); SGPT/ALT 23.0 U/L (0-35); TRIGLYCERIDE 103.0 mg/dL (30-150); Total Protein 6.5 g/dL (6.3-8.2)
[2025-09-18] MEDS: Provigil 100MG Tablet PO SCH (08:54)
[2025-09-18] MEDS: Vitamin B-12 500 MCG PO SCH (08:54)
[2025-09-18] MEDS: ECOTRIN 81 MG PO SCH (08:55)
[2025-09-18] MEDS: Lantus Insulin SQ SCH (09:01)
--- NOTE | 2025-09-18 11:27 | PCM.DS ---
Discharge Summary Date of Admission: 09/17/25 12:37 Date of Discharge: 09/18/25 Admitting Physician: CARLITOS MANNING MD Primary Care Provider: LISSA,CAROL ANN Allergies Allergies morphine Allergy (Intermediate, Verified 09/17/25 09:41) levofloxacin [From Levaquin] Adverse Reaction (Intermediate, Verified 09/17/25 09:41) PT STATES ONE TIME SHE HAD THIS MEDICINE AND HER VEINS ALL TURNED [facility] Summary - Hospital Course Hospital Course: Ms. Orta is a 60-year-old female with a history of irritable bowel syndrome, seizures (no current antiseizure therapy), hypertension, migraines, hyperlipidemia, type 2 diabetes mellitus, anxiety/depression, COPD, and chronic liver disease who presented on 09/17/2025 for evaluation of an episode resembling prior seizure-like activity. She described a prodrome of left-sided visual disturbance followed by loss of awareness and subsequent confusion, weakness, and nausea. The event was unwitnessed. On recovery, she noted transient expressive difficulty and mild right-sided weakness, which resolved prior to ED arrival. She also reported intermittent gait unsteadiness over the past month. Initial evaluation showed stable vital signs aside from transient hypertension (167/106 mmHg). EKG demonstrated normal sinus rhythm without ischemic changes. CT head and CTA head/neck were negative for acute pathology. Laboratory studies revealed normocytic anemia (Hgb 9.7, near her baseline), mild hyponatremia (Na 132), mild lactic acidosis (2.3-1.9), and hypomagnesemia (Mg 1.3, repleted in the ED). LFTs showed mild AST elevation (39). Troponin was negative, and urinalysis was unremarkable. MRI brain with and without contrast demonstrated no acute ischemia or mass lesion. Neurology was consulted and determined the presentation to be most consistent with a complex migraine or nonepileptic event, rather than an ischemic stroke. No thrombolytic therapy was indicated. The patients symptoms resolved fully by 09/18, and she returned to baseline. Blood pressure normalized without intervention, and she remained hemodynamically stable. She follows with Dr. Rendon (Neurology, [facility]) and has scheduled outpatient cervical imaging next week. Discharged home in stable condition with no new medications. Physical therapy has recommended HHC with PT which has been set up for patient. Discharge Note New Diagnosis: Complex migraine New Medications:none - continue home meds- add b12 1000 mcg daily for b12 deficiency Follow Up: Neurology next week/PCP I spent 35 minutes [id number] with the patient on the day of discharge performing discharge exam, discussing hospital stay and discharge instructions with patient and caregivers, preparation of discharge records, prescriptions & referral forms and addressing any questions/concerns the patient had as documented above. - Vitals & Intake/Output Vital Signs: Vital Signs Temperature 97.2 F 09/18/25 07:00 Pulse Rate 88 09/18/25 07:00 Respiratory Rate 19 09/18/25 07:00 Blood Pressure 131/73 09/18/25 07:00 O2 Sat by Pulse Oximetry 95 09/18/25 07:00 Intake & Output: Intake & Output 09/15/25 09/16/25 09/17/25 09/18/25 11:59 11:59 11:59 11:59 Intake Total 2309 Output Total 2000 Balance 309 Weight 120 kg 117 kg - Lab Result Diagrams: 09/18/25 04:20 09/18/25 04:20 Lab Results-Last 24 Hrs: Lab Results-Last 24 Hours 09/17/25 09/17/25 09/17/25 Range/Units 10:39 10:39 12:19 WBC (3.98-10.04) x10^3/uL RBC (3.93-5.22) x10^6/uL Hgb (11.2-15.7) g/dL Hct (34.1-44.9) % MCV (79.4-94.8) fL MCH (25.6-32.2) pg MCHC (32.2-35.5) g/dL RDW (11.7-14.4) % Plt Count (182-369) x10^3/uL MPV (9.4-12.3) fL Gran % (34.0-71.1) % Immature Gran % (Auto) (0.001-0.429) % Nucleat RBC Rel Count (0.00-0.2) % Eos # (Auto) (0.04-0.36) x10^3/uL Immature Gran # (Auto) (0.001-0.031) x10^3u/L Absolute Lymphs (auto) (1.18-3.74) x10^3/uL Absolute Monos (auto) (0.24-0.86) x10^3/uL Absolute Nucleated RBC (0.00-0.012) x10^3u/L Lymphocytes % (19.3-51.7) % Monocytes % (4.7-12.5) % Eosinophils % (0.7-5.8) % Basophils % (0.1-1.2) % Absolute Granulocytes (1.56-6.13) x10^3/uL Basophils # (0.01-0.08) x10^3/uL Sodium (135-145) mmol/L Potassium (3.5-5.1) mmol/L Chloride (98-107) mmol/L Carbon Dioxide (22-30) mmol/L Anion Gap (5-15) MEQ/L BUN (7-17) mg/dL Creatinine (0.52-1.04) mg/dL Estimated GFR ML/MIN Glucose (74-106) mg/dL POC Glucometer (74 to 106) mg/dL Hemoglobin A1c (4.5-6.0) % Lactic Acid 2.2 H (0.4-2.0) Calcium (8.4-10.2) mg/dL Magnesium (1.6-2.3) mg/dL Iron (37-170) ug/dL TIBC (265-462) ug/dL Iron Saturation (20-39) % Ferritin (11.1-264) ng/mL Total Bilirubin (0.2-1.3) mg/dL AST (14-36) U/L ALT (0-35) U/L Alkaline Phosphatase (38-126) U/L Troponin I (0.000-0.033) ng/mL Serum Total Protein (6.3-8.2) g/dL Albumin (3.5-5.0) g/dL Triglycerides (30-150) mg/dL Cholesterol (50-200) mg/dL LDL Cholesterol (30-100) mg/dL HDL Cholesterol (40-60) mg/dL Heart Disease Risk Ratio Vitamin B12 (239-931) pg/mL Folic Acid (2.76 - >20) ng/mL TSH 3rd Generation (0.470-4.680) mIU/L Urine Color Yellow (Yellow) Urine Appearance Clear (Clear) Urine pH 7.0 (4.6-8.0) Ur Specific [place] <=1.005 (1.005-1.030) Urine Protein Negative (Negative) Urine Glucose (UA) Negative (Negative) mg/dL Urine Ketones Negative (Negative) Urine Blood Negative (Negative) Urine Nitrite Negative (Negative) Urine Bilirubin Negative (Negative) Urine Urobilinogen 0.2 (0.2) mg/dL Ur Leukocyte Esterase Trace A (Negative) U Hyaline Cast (Auto) NONE SEEN (0-2) /LPF Urine Microscopic RBC 0-2 (0-5) /HPF Urine Microscopic WBC 0-2 (0-5) /HPF Ur Epithelial Cells None Seen (None Seen) /HPF Urine Bacteria None Seen (None Seen) /HPF Urine Culture Reflexed NO (NO) Urine Opiates Level NEGATIVE (NEGATIVE) Ur Methadone NEGATIVE (NEGATIVE) Urine Barbiturates NEGATIVE (NEGATIVE) Ur Phencyclidine (PCP) NEGATIVE (NEGATIVE) Urine Amphetamine NEGATIVE (NEGATIVE) U Benzodiazepine Level NEGATIVE (NEGATIVE) Urine Cocaine NEGATIVE (NEGATIVE) Urine Marijuana (THC) NEGATIVE (NEGATIVE) 09/17/25 09/17/25 09/17/25 Range/Units 12:30 12:36 12:36 WBC (3.98-10.04) x10^3/uL RBC (3.93-5.22) x10^6/uL Hgb (11.2-15.7) g/dL Hct (34.1-44.9) % MCV (79.4-94.8) fL MCH (25.6-32.2) pg MCHC (32.2-35.5) g/dL RDW (11.7-14.4) % Plt Count (182-369) x10^3/uL MPV (9.4-12.3) fL Gran % (34.0-71.1) % Immature Gran % (Auto) (0.001-0.429) % Nucleat RBC Rel Count (0.00-0.2) % Eos # (Auto) (0.04-0.36) x10^3/uL Immature Gran # (Auto) (0.001-0.031) x10^3u/L Absolute Lymphs (auto) (1.18-3.74) x10^3/uL Absolute Monos (auto) (0.24-0.86) x10^3/uL Absolute Nucleated RBC (0.00-0.012) x10^3u/L Lymphocytes % (19.3-51.7) % Monocytes % (4.7-12.5) % Eosinophils % (0.7-5.8) % Basophils % (0.1-1.2) % Absolute Granulocytes (1.56-6.13) x10^3/uL Basophils # (0.01-0.08) x10^3/uL Sodium (135-145) mmol/L Potassium (3.5-5.1) mmol/L Chloride (98-107) mmol/L Carbon Dioxide (22-30) mmol/L Anion Gap (5-15) MEQ/L BUN (7-17) mg/dL Creatinine (0.52-1.04) mg/dL Estimated GFR ML/MIN Glucose (74-106) mg/dL POC Glucometer (74 to 106) mg/dL Hemoglobin A1c 5.38 (4.5-6.0) % Lactic Acid (0.4-2.0) Calcium (8.4-10.2) mg/dL Magnesium (1.6-2.3) mg/dL Iron (37-170) ug/dL TIBC (265-462) ug/dL Iron Saturation (20-39) % Ferritin (11.1-264) ng/mL Total Bilirubin (0.2-1.3) mg/dL AST (14-36) U/L ALT (0-35) U/L Alkaline Phosphatase (38-126) U/L Troponin I < 0.012 (0.000-0.033) ng/mL Serum Total Protein (6.3-8.2) g/dL Albumin (3.5-5.0) g/dL Triglycerides (30-150) mg/dL Cholesterol (50-200) mg/dL LDL Cholesterol (30-100) mg/dL HDL Cholesterol (40-60) mg/dL Heart Disease Risk Ratio Vitamin B12 (239-931) pg/mL Folic Acid (2.76 - >20) ng/mL TSH 3rd Generation 0.905 (0.470-4.680) mIU/L Urine Color (Yellow) Urine Appearance (Clear) Urine pH (4.6-8.0) Ur Specific [place] (1.005-1.030) Urine Protein (Negative) Urine Glucose (UA) (Negative) mg/dL Urine Ketones (Negative) Urine Blood (Negative) Urine Nitrite (Negative) Urine Bilirubin (Negative) Urine Urobilinogen (0.2) mg/dL Ur Leukocyte Esterase (Negative) U Hyaline Cast (Auto) (0-2) /LPF Urine Microscopic RBC (0-5) /HPF Urine Microscopic WBC (0-5) /HPF Ur Epithelial Cells (None Seen) /HPF Urine Bacteria (None Seen) /HPF Urine Culture Reflexed (NO) Urine Opiates Level (NEGATIVE) Ur Methadone (NEGATIVE) Urine Barbiturates (NEGATIVE) Ur Phencyclidine (PCP) (NEGATIVE) Urine Amphetamine (NEGATIVE) U Benzodiazepine Level (NEGATIVE) Urine Cocaine (NEGATIVE) Urine Marijuana (THC) (NEGATIVE) 09/17/25 09/17/25 09/17/25 Range/Units 16:34 17:40 17:40 WBC (3.98-10.04) x10^3/uL RBC (3.93-5.22) x10^6/uL Hgb (11.2-15.7) g/dL Hct (34.1-44.9) % MCV (79.4-94.8) fL MCH (25.6-32.2) pg MCHC (32.2-35.5) g/dL RDW (11.7-14.4) % Plt Count (182-369) x10^3/uL MPV (9.4-12.3) fL Gran % (34.0-71.1) % Immature Gran % (Auto) (0.001-0.429) % Nucleat RBC Rel Count (0.00-0.2) % Eos # (Auto) (0.04-0.36) x10^3/uL Immature Gran # (Auto) (0.001-0.031) x10^3u/L Absolute Lymphs (auto) (1.18-3.74) x10^3/uL Absolute Monos (auto) (0.24-0.86) x10^3/uL Absolute Nucleated RBC (0.00-0.012) x10^3u/L Lymphocytes % (19.3-51.7) % Monocytes % (4.7-12.5) % Eosinophils % (0.7-5.8) % Basophils % (0.1-1.2) % Absolute Granulocytes (1.56-6.13) x10^3/uL Basophils # (0.01-0.08) x10^3/uL Sodium (135-145) mmol/L Potassium (3.5-5.1) mmol/L Chloride (98-107) mmol/L Carbon Dioxide (22-30) mmol/L Anion Gap (5-15) MEQ/L BUN (7-17) mg/dL Creatinine (0.52-1.04) mg/dL Estimated GFR ML/MIN Glucose (74-106) mg/dL POC Glucometer 129 H (74 to 106) mg/dL Hemoglobin A1c (4.5-6.0) % Lactic Acid (0.4-2.0) Calcium (8.4-10.2) mg/dL Magnesium (1.6-2.3) mg/dL Iron (37-170) ug/dL TIBC (265-462) ug/dL Iron Saturation (20-39) % Ferritin 23.9 (11.1-264) ng/mL Total Bilirubin (0.2-1.3) mg/dL AST (14-36) U/L ALT (0-35) U/L Alkaline Phosphatase (38-126) U/L Troponin I < 0.012 (0.000-0.033) ng/mL Serum Total Protein (6.3-8.2) g/dL Albumin (3.5-5.0) g/dL Triglycerides (30-150) mg/dL Cholesterol (50-200) mg/dL LDL Cholesterol (30-100) mg/dL HDL Cholesterol (40-60) mg/dL Heart Disease Risk Ratio Vitamin B12 205 L (239-931) pg/mL Folic Acid 9.22 (2.76 - >20) ng/mL TSH 3rd Generation (0.470-4.680) mIU/L Urine Color (Yellow) Urine Appearance (Clear) Urine pH (4.6-8.0) Ur Specific [place] (1.005-1.030) Urine Protein (Negative) Urine Glucose (UA) (Negative) mg/dL Urine Ketones (Negative) Urine Blood (Negative) Urine Nitrite (Negative) Urine Bilirubin (Negative) Urine Urobilinogen (0.2) mg/dL Ur Leukocyte Esterase (Negative) U Hyaline Cast (Auto) (0-2) /LPF Urine Microscopic RBC (0-5) /HPF Urine Microscopic WBC (0-5) /HPF Ur Epithelial Cells (None Seen) /HPF Urine Bacteria (None Seen) /HPF Urine Culture Reflexed (NO) Urine Opiates Level (NEGATIVE) Ur Methadone (NEGATIVE) Urine Barbiturates (NEGATIVE) Ur Phencyclidine (PCP) (NEGATIVE) Urine Amphetamine (NEGATIVE) U Benzodiazepine Level (NEGATIVE) Urine Cocaine (NEGATIVE) Urine Marijuana (THC) (NEGATIVE) 09/17/25 09/17/25 09/17/25 Range/Units 17:40 20:40 20:55 WBC (3.98-10.04) x10^3/uL RBC (3.93-5.22) x10^6/uL Hgb (11.2-15.7) g/dL Hct (34.1-44.9) % MCV (79.4-94.8) fL MCH (25.6-32.2) pg MCHC (32.2-35.5) g/dL RDW (11.7-14.4) % Plt Count (182-369) x10^3/uL MPV (9.4-12.3) fL Gran % (34.0-71.1) % Immature Gran % (Auto) (0.001-0.429) % Nucleat RBC Rel Count (0.00-0.2) % Eos # (Auto) (0.04-0.36) x10^3/uL Immature Gran # (Auto) (0.001-0.031) x10^3u/L Absolute Lymphs (auto) (1.18-3.74) x10^3/uL Absolute Monos (auto) (0.24-0.86) x10^3/uL Absolute Nucleated RBC (0.00-0.012) x10^3u/L Lymphocytes % (19.3-51.7) % Monocytes % (4.7-12.5) % Eosinophils % (0.7-5.8) % Basophils % (0.1-1.2) % Absolute Granulocytes (1.56-6.13) x10^3/uL Basophils # (0.01-0.08) x10^3/uL Sodium (135-145) mmol/L Potassium (3.5-5.1) mmol/L Chloride (98-107) mmol/L Carbon Dioxide (22-30) mmol/L Anion Gap (5-15) MEQ/L BUN (7-17) mg/dL Creatinine (0.52-1.04) mg/dL Estimated GFR ML/MIN Glucose (74-106) mg/dL POC Glucometer 134 H (74 to 106) mg/dL Hemoglobin A1c (4.5-6.0) % Lactic Acid 1.9 (0.4-2.0) Calcium (8.4-10.2) mg/dL Magnesium (1.6-2.3) mg/dL Iron 76 (37-170) ug/dL TIBC 356 (265-462) ug/dL Iron Saturation 21 (20-39) % Ferritin (11.1-264) ng/mL Total Bilirubin (0.2-1.3) mg/dL AST (14-36) U/L ALT (0-35) U/L Alkaline Phosphatase (38-126) U/L Troponin I (0.000-0.033) ng/mL Serum Total Protein (6.3-8.2) g/dL Albumin (3.5-5.0) g/dL Triglycerides (30-150) mg/dL Cholesterol (50-200) mg/dL LDL Cholesterol (30-100) mg/dL HDL Cholesterol (40-60) mg/dL Heart Disease Risk Ratio Vitamin B12 (239-931) pg/mL Folic Acid (2.76 - >20) ng/mL TSH 3rd Generation (0.470-4.680) mIU/L Urine Color (Yellow) Urine Appearance (Clear) Urine pH (4.6-8.0) Ur Specific [place] (1.005-1.030) Urine Protein (Negative) Urine Glucose (UA) (Negative) mg/dL Urine Ketones (Negative) Urine Blood (Negative) Urine Nitrite (Negative) Urine Bilirubin (Negative) Urine Urobilinogen (0.2) mg/dL Ur Leukocyte Esterase (Negative) U Hyaline Cast (Auto) (0-2) /LPF Urine Microscopic RBC (0-5) /HPF Urine Microscopic WBC (0-5) /HPF Ur Epithelial Cells (None Seen) /HPF Urine Bacteria (None Seen) /HPF Urine Culture Reflexed (NO) Urine Opiates Level (NEGATIVE) Ur Methadone (NEGATIVE) Urine Barbiturates (NEGATIVE) Ur Phencyclidine (PCP) (NEGATIVE) Urine Amphetamine (NEGATIVE) U Benzodiazepine Level (NEGATIVE) Urine Cocaine (NEGATIVE) Urine Marijuana (THC) (NEGATIVE) 09/18/25 09/18/25 09/18/25 Range/Units 04:20 04:20 06:59 WBC 3.9 L (3.98-10.04) x10^3/uL RBC 3.13 L (3.93-5.22) x10^6/uL Hgb 8.9 L (11.2-15.7) g/dL Hct 27.7 L (34.1-44.9) % MCV 88.5 (79.4-94.8) fL MCH 28.4 (25.6-32.2) pg MCHC 32.1 L (32.2-35.5) g/dL RDW 13.2 (11.7-14.4) % Plt Count 134 L (182-369) x10^3/uL MPV 11.1 (9.4-12.3) fL Gran % 58.1 (34.0-71.1) % Immature Gran % (Auto) 0.5 H (0.001-0.429) % Nucleat RBC Rel Count 0.0 (0.00-0.2) % Eos # (Auto) 0.08 (0.04-0.36) x10^3/uL Immature Gran # (Auto) 0.02 (0.001-0.031) x10^3u/L Absolute Lymphs (auto) 1.15 L (1.18-3.74) x10^3/uL Absolute Monos (auto) 0.35 (0.24-0.86) x10^3/uL Absolute Nucleated RBC 0.00 (0.00-0.012) x10^3u/L Lymphocytes % 29.9 (19.3-51.7) % Monocytes % 9.1 (4.7-12.5) % Eosinophils % 2.1 (0.7-5.8) % Basophils % 0.3 (0.1-1.2) % Absolute Granulocytes 2.24 (1.56-6.13) x10^3/uL Basophils # 0.01 (0.01-0.08) x10^3/uL Sodium 133 L (135-145) mmol/L Potassium 4.3 (3.5-5.1) mmol/L Chloride 103 (98-107) mmol/L Carbon Dioxide 25 (22-30) mmol/L Anion Gap 9.8 (5-15) MEQ/L BUN 12 (7-17) mg/dL Creatinine 1.02 (0.52-1.04) mg/dL Estimated GFR 63.0 ML/MIN Glucose 130 H (74-106) mg/dL POC Glucometer 118 H (74 to 106) mg/dL Hemoglobin A1c (4.5-6.0) % Lactic Acid (0.4-2.0) Calcium 8.7 (8.4-10.2) mg/dL Magnesium 2.0 (1.6-2.3) mg/dL Iron (37-170) ug/dL TIBC (265-462) ug/dL Iron Saturation (20-39) % Ferritin (11.1-264) ng/mL Total Bilirubin 0.20 (0.2-1.3) mg/dL AST 30 (14-36) U/L ALT 23 (0-35) U/L Alkaline Phosphatase 123 (38-126) U/L Troponin I (0.000-0.033) ng/mL Serum Total Protein 6.5 (6.3-8.2) g/dL Albumin 3.6 (3.5-5.0) g/dL Triglycerides 103 (30-150) mg/dL Cholesterol 152 (50-200) mg/dL LDL Cholesterol 70 (30-100) mg/dL HDL Cholesterol 51 (40-60) mg/dL Heart Disease Risk Ratio 3.0 Vitamin B12 (239-931) pg/mL Folic Acid (2.76 - >20) ng/mL TSH 3rd Generation (0.470-4.680) mIU/L Urine Color (Yellow) Urine Appearance (Clear) Urine pH (4.6-8.0) Ur Specific [place] (1.005-1.030) Urine Protein (Negative) Urine Glucose (UA) (Negative) mg/dL Urine Ketones (Negative) Urine Blood (Negative) Urine Nitrite (Negative) Urine Bilirubin (Negative) Urine Urobilinogen (0.2) mg/dL Ur Leukocyte Esterase (Negative) U Hyaline Cast (Auto) (0-2) /LPF Urine Microscopic RBC (0-5) /HPF Urine Microscopic WBC (0-5) /HPF Ur Epithelial Cells (None Seen) /HPF Urine Bacteria (None Seen) /HPF Urine Culture Reflexed (NO) Urine Opiates Level (NEGATIVE) Ur Methadone (NEGATIVE) Urine Barbiturates (NEGATIVE) Ur Phencyclidine (PCP) (NEGATIVE) Urine Amphetamine (NEGATIVE) U Benzodiazepine Level (NEGATIVE) Urine Cocaine (NEGATIVE) Urine Marijuana (THC) (NEGATIVE) Micro Results-Entire Visit: Accuchecks Date 09/17/25 Date 09/17/25 Time 21:00 Time 16:37 - Radiology Exams Ordered Rad Exams-Entire Visit: Radiology Procedures Category Date Time Status CHEST 1 VIEW (PORTABLE) Stat Exams 09/17/25 13:[address] ANGIOGRAPHY NECK [CT] Stat Exams 09/17/25 10:04 Completed CTA HEAD W AND/OR WO CONTRAST [CT] Stat Exams 09/17/25 10:03 Completed ECHO W/2D AND DOPPLER [US] Routine Exams 09/17/25 13:48 Taken MRI BRAIN W & W/O CONTRAST [MRI] Stat Exams 09/17/25 13:55 Completed - Procedures and Test Procedures and Tests throughout Hospitalization: Therapy Orders & Screens 09/17/25 13:43 Respiratory Therapy Assessment DAILY Comment: Diagnosis: Seizure, migraine, syncope 09/17/25 13:44 BiPap/CPAP ROUTINE Comment: Diagnosis: Seizure, migraine, syncope 09/17/25 13:46 PT Eval & Treat (MD Order) ONCE Reason for Eval:: weakness Diagnosis: Seizure, migraine, syncope EKG REPEAT IN AM Comment: Diagnosis: Seizure, migraine, syncope Respiratory Therapy Consult ONCE Comment: Reason For Exam: Diagnosis: Seizure, migraine, syncope OT Eval and Treat (MD Order) ONCE Comment: Physician Instructions: Reason For Exam: Diagnosis: Seizure, migraine, syncope 09/17/25 19:00 Respiratory MDI BID Comment: WIXELLA Diagnosis: Seizure, migraine, syncope Discharge Exam General Appearance: no apparent distress Neurologic Exam: alert, oriented x 3, cooperative Eye Exam: PERRL Ears, Nose, Throat Exam: normal ENT inspection Neck Exam: normal inspection Respiratory Exam: normal breath sounds, lungs clear Cardiovascular Exam: regular rate/rhythm, normal heart sounds Gastrointestinal/Abdomen Exam: soft, normal bowel sounds Pelvic Exam: deferred Rectal Exam: deferred Back Exam: normal inspection Extremity Exam: normal inspection Final Diagnosis/Problem List - Final Discharge Diagnosis/Problem (1) Other symptoms and signs involving the nervous system Current Visit: Yes Status: Acute Assessment & Plan: CT/CTA and MRI brain negative for acute findings. Neurology consulted; no indication for antiepileptic therapy. Continue home aspirin 81 mg daily and statin. Follow up with Dr. Rendon (Neurology) next week. PT/OT/FLOOR PERSON evaluations completedno deficits requiring intervention- set up with OP C with PT A1c 5.38, TSH within normal limits. Code(s): R29.818 - OTHER SYMPTOMS AND SIGNS INVOLVING THE NERVOUS SYSTEM (2) Hypomagnesemia Current Visit: Yes Status: Acute Assessment & Plan: Resolved Code(s): E83.42 - HYPOMAGNESEMIA (3) Hyponatremia Current Visit: Yes Status: Acute Assessment & Plan: Mild (Na 133), likely related to dehydration. Encourage oral hydration; recheck BMP outpatient. Code(s): E87.1 - HYPO-OSMOLALITY AND HYPONATREMIA (4) Lactic acidosis Current Visit: Yes Status: Acute Assessment & Plan: Mild, likely secondary to transient hypoperfusion during episode -resolved Code(s): E87.20 - ACIDOSIS, UNSPECIFIED (5) Normocytic anemia Current Visit: Yes Status: Acute Assessment & Plan: Hgb 8.9 and stable No evidence of bleeding or hemolysis. Code(s): D64.9 - ANEMIA, UNSPECIFIED (6) History of seizure Current Visit: Yes Status: Acute Assessment & Plan: Follows with Dr. Rendon, Neurology. Prior EEG negative; no antiepileptic therapy. Continue stress reduction and migraine management. Code(s): Z87.898 - PERSONAL HISTORY OF OTHER SPECIFIED CONDITIONS (7) HTN (hypertension) Current Visit: Yes Status: Acute Assessment & Plan: BP improved without medication. Resume home antihypertensive regimen Code(s): I10 - ESSENTIAL (PRIMARY) HYPERTENSION (8) Liver disease Current Visit: Yes Status: Acute Assessment & Plan: Continue follow-up with Dr. Jeffrey Code(s): K76.9 - LIVER DISEASE, UNSPECIFIED (9) Anxiety and depression Current Visit: Yes Status: Acute Assessment & Plan: Continue home medications; follow with outpatient provider. Code(s): F41.9 - ANXIETY DISORDER, UNSPECIFIED; F32.A - DEPRESSION, UNSPECIFIED (10) Migraine Current Visit: Yes Status: Acute Assessment & Plan: Likely etiology of presenting event. Continue home regimen; use PRN migraine therapy as needed. Code(s): G43.909 - MIGRAINE, UNSP, NOT INTRACTABLE, WITHOUT STATUS MIGRAINOSUS (11) Type 2 diabetes mellitus Current Visit: No Status: Acute Assessment & Plan: A1c 5.38. Continue ADA diet and home regimen (12) COPD (chronic obstructive pulmonary disease) Current Visit: No Status: Chronic Onset Date: ~02/24/18 Assessment & Plan: Stable on room air, no exacerbation. Continue home inhalers; RT to follow outpatient. (13) High cholesterol Current Visit: No Status: Chronic Assessment & Plan: Continue statin therapy. Code(s): E78.00 - PURE HYPERCHOLESTEROLEMIA, UNSPECIFIED (14) IBS (irritable bowel syndrome) Current Visit: Yes Status: Acute Assessment & Plan: Stable; maintain current supportive regimen Follow-Up: Neurology (Dr. Rendon, [facility]) as scheduled next week PCP within 1 week for electrolyte and CBC monitoring Return to ED for new or worsening neurological symptoms (15) Vitamin B12 deficiency Current Visit: Yes Status: Acute Assessment & Plan: Continue cyanocobalamin Code(s): E53.8 - DEFICIENCY OF OTHER SPECIFIED B GROUP VITAMINS - Discharge Discharge Date: 09/18/25 Disposition: HOME HEALTH SERVICE Condition: Stable Prescriptions: New Cyanocobalamin 500 Mcg [Vitamin B-12 500 MCG] 1,000 mcg PO DAILY 30 Days #60 tablet Continue Ropinirole HCl [Requip] 2 mg PO .1700;2200 Meclizine HCl 25 mg [Antivert 25 mg] 25 mg PO BID Gabapentin 300 mg PO TID Metformin HCl 500 mg [Glucophage 500 MG] 1,000 mg PO BID Pravastatin Sodium 20 mg PO HS modafiniL [Modafinil] 200 mg PO DAILY lisinopriL [Lisinopril] 5 mg PO HS Metoclopramide HCl 5 mg PO QID Albuterol Sulfate [Albuterol Sulfate Hfa] 2 puff PO Q6H PRN PRN PRN Reason: Shortness Of Breath carvediloL [Carvedilol] 18.75 mg PO BID Omeprazole 40 mg PO BID Aspirin EC 81 mg [Ecotrin 81 mg] 81 mg PO DAILY Albuterol 2.5 mg/3 ml Neb [Proventil 2.5 mg/3 ml Neb] 3 ml IH Q6HPRN PRN PRN Reason: Shortness Of Breath/Wheezing Semaglutide [Ozempic] 1 mg SQ WEEKLY Insulin Glargine,Hum.rec.anlog [Basaglar Tempo Pen U-100] 50 units SQ DAILY Insulin Aspart [Novolog] 26 unit SQ .BREAKFAST, DINNER Furosemide 20 mg [Lasix 20 mg] 20 mg PO DAILY Erenumab-Aooe [Aimovig Autoinjector] 70 mg SQ .MONTHLY SUMAtriptan succinate [Imitrex 50 mg] 50 mg PO . NEEDED PRN PRN Reason: Headache Fluticasone Propion/Salmeterol [Wixela 500-50 Inhub] 1 inh PO BID Tizanidine HCl 4 mg PO TID Insulin Aspart [NovoLOG Insulin] 24 units SQ LUNCH Instructions: Migraine in adults Additional Instructions: [facility] [employer] [facility] HAS BEEN SET UP FOR YOU. THEY WILL CALL YOU TO ARRANGE A TIME TO COME SEE YOU. THEIR PHONE NUMBER IS [phone] IF YOU NEED ANYTHING PRIOR TO THEM CONTACTING YOU. Follow up with: CAROL ANN ALCARAZ MD [Primary Care Provider, INTERNAL MEDICINE] - 09/25/25 10:45 am Forms: Discharge Instructions
[2025-09-18 12:00] VITALS: BP 96/52; PULSE 78; RESP 20; TEMP 97.1; O2SAT 98
[2025-09-18] MEDS: HUMALOG SQ SCH (12:03)
--- NOTE | 2025-09-18 15:00 | PCM.DCORD ---
- Discharge Discharge Date: 09/18/25 Disposition: HOME HEALTH SERVICE Condition: Stable Prescriptions: New Cyanocobalamin 500 Mcg [Vitamin B-12 500 MCG] 1,000 mcg PO DAILY 30 Days #60 tablet Continue Ropinirole HCl [Requip] 2 mg PO .1700;2200 Meclizine HCl 25 mg [Antivert 25 mg] 25 mg PO BID Gabapentin 300 mg PO TID Metformin HCl 500 mg [Glucophage 500 MG] 1,000 mg PO BID Pravastatin Sodium 20 mg PO HS modafiniL [Modafinil] 200 mg PO DAILY lisinopriL [Lisinopril] 5 mg PO HS Metoclopramide HCl 5 mg PO QID Albuterol Sulfate [Albuterol Sulfate Hfa] 2 puff PO Q6H PRN PRN PRN Reason: Shortness Of Breath carvediloL [Carvedilol] 18.75 mg PO BID Omeprazole 40 mg PO BID Aspirin EC 81 mg [Ecotrin 81 mg] 81 mg PO DAILY Albuterol 2.5 mg/3 ml Neb [Proventil 2.5 mg/3 ml Neb] 3 ml IH Q6HPRN PRN PRN Reason: Shortness Of Breath/Wheezing Semaglutide [Ozempic] 1 mg SQ WEEKLY Insulin Glargine,Hum.rec.anlog [Basaglar Tempo Pen U-100] 50 units SQ DAILY Insulin Aspart [Novolog] 26 unit SQ .BREAKFAST, DINNER Furosemide 20 mg [Lasix 20 mg] 20 mg PO DAILY Erenumab-Aooe [Aimovig Autoinjector] 70 mg SQ .MONTHLY SUMAtriptan succinate [Imitrex 50 mg] 50 mg PO . NEEDED PRN PRN Reason: Headache Fluticasone Propion/Salmeterol [Wixela 500-50 Inhub] 1 inh PO BID Tizanidine HCl 4 mg PO TID Insulin Aspart [NovoLOG Insulin] 24 units SQ LUNCH Instructions: Cyanocobalamin, Migraine in adults Additional Instructions: [facility] HAS BEEN SET UP FOR YOU. THEY WILL CALL YOU TO ARRANGE A TIME TO COME SEE YOU. THEIR PHONE NUMBER IS [phone] IF YOU NEED ANYTHING PRIOR TO THEM CONTACTING YOU. Follow up with: CAROL ANN ALCARAZ MD [Primary Care Provider, INTERNAL MEDICINE] - 09/25/25 10:45 am Forms: Discharge Instructions
== END 2025-09-18 16:35 | disposition home health service (06) ==
LOC: ED 09:23 → MED SURG 12:37
PROVIDERS: ADMIT Internal Medicine; ATTEND Internal Medicine
DX: R29.818 Other symptoms and signs involving the nervous system (principal); E83.42 Hypomagnesemia; E87.1 Hypo-osmolality and hyponatremia; E87.20 Acidosis, unspecified; D64.9 Anemia, unspecified; Z87.898 Personal history of other specified conditions; I10 Essential (primary) hypertension; K76.9 Liver disease, unspecified; F41.9 Anxiety disorder, unspecified; F32.A Depression, unspecified; G43.909 Migraine, unspecified, not intractable, without status migrainosus; E11.9 Type 2 diabetes mellitus without complications; J44.9 Chronic obstructive pulmonary disease, unspecified; E78.00 Pure hypercholesterolemia, unspecified; K58.9 Irritable bowel syndrome, unspecified; E53.8 Deficiency of other specified B group vitamins; Z79.899 Other long term (current) drug therapy
CPT/HCPCS: 36415; 70496; 70498; 70553; 71045; 80053; 80061; 80307; 81001; 82077; 82607; 82728; 82746; 82947; 83036; 83540; 83550; 83605; 83721; 83735; 84443; 84484; 85025; 93005; 93041; 93306; 94640; 94760; 96375; 97161; 97165; 99285; Q3014